=== PATIENT | male | born 1965 | race Caucasian/White ===

== ENCOUNTER 2018-10-15 13:18 | Inpatient (IN) ==
[2018-10-15] MEDS ORDERED: Sod Chloride 0.9% Inj 1,000 ML IV.SIG ONE (13:28)
[2018-10-15] MEDS ORDERED: Propofol 1000 mg/100 ml Inj 1,000 MG/100 ML BOTTLE ONE ×2 (13:29→17:16)
--- NOTE | 2018-10-15 13:35 | ED ---
HPI General Chief complaint: Altered Mental Status Stated complaint: Emergent Time Seen by Provider: 10/15/18 13:26 Source: EMS Mode of arrival: EMS Limitations: altered mental status History of Present Illness HPI narrative: Patient was transported from [facility], by ER mass who originally called it a trauma alert on the field. However upon further evaluation and history taking there was no evidence of any trauma, there was no accident motor vehicle motorcycle or otherwise. It was just that the patient was found down and so would not assumption of a fall was made. However the way that is been described it appears that something medical happened that caused the fall. There is also no outer evidence of trauma by EMS, GCS decreased from 10 to 92002 active EMS provided with etomidate and Versed however the patient was clenching his teeth and they were unable to intubate Related Data Home Medications Medication Instructions Recorded Confirmed amlodipine [Norvasc] 5 mg PO DAILY 10/15/18 10/15/18 tamsulosin [Flomax] 0.4 mg PO DAILY 10/15/18 10/15/18 Allergies Allergy/AdvReac Type Severity Reaction Status Date / Time lisinopril Allergy Intermediate hallucinati Verified 10/15/18 13:39 ons amlodipine Allergy Unknown headaches Verified 10/15/18 13:38 Review of Systems ROS: all other systems reviewed are negative [facility] Medical History Medical History Medical history unknown (Acute) Family History Family History Mother Gastric ulcer Social History Social History 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 HEAD: Atraumatic. Normocephalic. EYES: Pupils equal and round. No scleral icterus. No injection or drainage. rt infraorbital echymosis noted ENT: No nasal bleeding or discharge. Mucous membranes pink and moist. NECK: Trachea midline. No JVD. CARDIOVASCULAR: Regular rate and rhythm. no rubs or gallops RESPIRATORY: No accessory muscle use. Clear to auscultation. Breath sounds equal bilaterally. GASTROINTESTINAL: Abdomen soft, non-tender, nondistended. No rebound or guarding MUSCULOSKELETAL: Extremities without clubbing, cyanosis, or edema. No obvious deformities. neg pelvic rock NEUROLOGICAL: [id number] Procedures Intubation Time Out Performed: Yes Sedative: etomidate Mg Given: 20 Paralytic: succinylcholine Mg Given: 50 Laryngoscope: Joan Assist Device Used: Bougie ET Tube Size: 8 ET Tube Uncuffed: No Tube Secured Depth (cm): 22 Tube Secured Location: lips Tube Placement Confirmation: visualized tube passing through cords and confirmation by capnometry Patient Tolerated Procedure: well Intubation Complications: none Course Initial Documented Vital Signs Temperature 99.1 F 10/15/18 13:21 Pulse Rate 124 H 10/15/18 13:21 Respiratory Rate 18 10/15/18 13:21 Blood Pressure 142/64 H 10/15/18 13:21 Pulse Oximetry 100 10/15/18 13:21 Last Documented Vital Signs Temperature 100.0 F H 10/17/18 18:03 Pulse Rate 88 10/17/18 18:03 Respiratory Rate 16 10/17/18 18:03 Blood Pressure 133/75 10/17/18 18:03 Pulse Oximetry 100 10/17/18 18:03 Critical Care Time Critical Care Time: Yes Total Critical Care Time: 60 Attestation: Aggregate critical care time was 60 minutes. Time to perform other separately billable procedures was not included in the critical care time. My time did not include minutes spent treating any other patients simultaneously or on activities that did not directly contribute to the patient's treatment. The services I provided to this patient were to treat and/or prevent clinically significant deterioration I provided critical care services requiring my management, as noted below: Chart data review, documentation time, medication orders and management, vital sign assessments/reviewing monitor data, ordering and reviewing lab tests, ordering and interpreting/reviewing x-rays and diagnostic studies, care of the patient and discussion of the patient with the admitting physicians. Medical Decision Making MDM Narrative Medical decision making narrative: 20,000 leukocytosis reactive in nature without any left shift, anemia of 5.5/17, platelet count of 316 NG tube had coffee-ground emesis and return Coagulation profile is within normal limits Lactic acid elevated at 4.5 Mild hypo-Moreno C Radha of 8.3 Normal ammonia Normal electrolytes Normal kidney function Alcohol level negative Chest x-ray showed ETT in good position, NGT in the stomach, ill-defined parenchymal and pleural opacities in the left upper lobe to include the possibility of infection Head CT had multiple episode of subdural hemorrhages although not large these were noted and fully discussed with Dr. garcia patient was intubated for airway protection started on ppi drip protonix og/gardiner placed admitted to icu Medical Screen Exam Complete: Yes Emergency Medical Condition: Yes Lab Data Result diagrams: 10/17/18 05:00 10/16/18 01:53 Lab Results 10/15/18 10/15/18 10/15/18 Range/Units 13:30 13:30 13:30 WBC 20.6 H (4.0-11.0) th/mm3 RBC 1.69 L (4.50-5.90) mil/mm3 Hgb 5.5 L* (13.0-17.0) gm/dL Hct 17.1 L* (39.0-51.0) % MCV 101.4 H (80.0-100.0) fL MCH 32.5 (27.0-34.0) pg MCHC 32.0 (32.0-36.0) % RDW 16.4 (11.6-17.2) % Plt Count 316 (150-450) th/mm3 MPV 8.1 (7.0-11.0) fL Prelim Diff (Auto) Slide review pending Neut % (Auto) 66.3 (16.0-70.0) % Lymph % (Auto) 20.9 (9.0-44.0) % [place] % (Auto) 11.6 H (0.0-8.0) % Eos % (Auto) 0.2 (0.0-4.0) % Baso % (Auto) 1.0 (0.0-2.0) % Neut # (Auto) 13.6 H (1.8-7.7) th/mm3 Lymph # (Auto) 4.3 (1.0-4.8) th/mm3 [place] # (Auto) 2.4 H (0.0-0.9) th/mm3 Eos # (Auto) 0.0 (0.0-0.4) th/mm3 Baso # (Auto) 0.2 (0.0-0.2) th/mm3 WBC Differential Manual diff final Seg Neuts % (Manual) 73 H (16-70) % Band Neuts % (Manual) (0-6) % Lymphocytes % (Manual) 17 (9-44) % Monocytes % (Manual) 6 (0-8) % Eosinophils % (Manual) (0-4) % Basophils % (Manual) 2 (0-2) % Myelocytes % (Man) 1 H (0-0) % Promyelocytes % (Man) 1 H (0-0) % Abs Neuts (Manual) 15.5 H (1.8-7.7) th/mm3 Differential Comment . Platelet Estimate Normal (Normal) Platelet Morphology Clumped H (Normal) Ovalocytes (None) PT 11.0 (9.8-11.6) sec INR 1.1 Ratio APTT 22.4 L (23.4-31.7) sec Puncture Site Patient Temperature O2 Saturation (90-100) % ABG pH (7.380-7.420) ABG pCO2 (38-42) mmHg ABG pO2 (61-120) mmHg ABG HCO3 (22-26) mmol/L ABG O2 Content (12.0-20.0) Vol % ABG Base Excess (-2-2) mmol/L ABG Methemoglobin (0-2) % [place] Test Hemoglobin (12.0-16.0) G/DL Carboxyhemoglobin (0-4) % O2 Delivery Device Vent Setting Inspired O2 % Critical Value Sodium 140 (136-145) meq/L Potassium 3.9 (3.5-5.1) meq/L Chloride 107 (98-107) meq/L Carbon Dioxide 23.2 (21.0-32.0) meq/L Anion Gap 10 (5-15) meq/L BUN 27 H (7-18) mg/dL Creatinine 0.76 (0.60-1.30) mg/dL Estimated GFR Greater than 89 (>89) mL/min POC Glucose (68-110) mg/dl Random Glucose 175 H (74-106) mg/dL Lactic Acid (0.4-2.0) mmol/L Calcium 6.9 L* (8.5-10.1) mg/dL Calcium Adj for Albumin 8.3 L (8.5-10.1) mg/dL Total Bilirubin 0.2 (0.2-1.0) mg/dL AST 50 H (15-37) U/L ALT 18 (12-78) U/L Alkaline Phosphatase 74 (45-117) U/L Ammonia (11-32) mcmol/L Total Creatine Kinase (39-308) U/L Troponin I Less than 0.02 L (0.02-0.05) ng/mL Total Protein 6.5 (6.4-8.2) g/dL Albumin 2.2 L (3.4-5.0) g/dL TSH 0.555 (0.358-3.740) uIU/mL Urine Color (Yellw/Straw) Urine Clarity (Clear) Urine pH (5.0-8.5) Ur Specific [place] (1.002-1.035) Urine Protein (Neg-Trace) mg/dL Urine Glucose (UA) (Negative) mg/dL Urine Ketones (Negative) mg/dL Urine Occult Blood (Negative) Urine Nitrate (Negative) Urine Bilirubin (Negative) Urine Urobilinogen (Less than 2) mg/dL Ur Leukocyte Esterase (Negative) Urine RBC (0-3) /hpf Urine WBC (0-5) /hpf Ur Squamous Epith Cells (0-5) /hpf Urine Bacteria (None) /hpf Hyaline Casts (0-3) /lpf Urine Mucus (Occasional) /lpf Micro UA Comment Ur Microscopic Review Urine Culture Comments Nasal Screen MRSA (PCR) (Negative) Urine Opiates Screen (Neg) Ur Barbiturates Screen (Neg) Ur Amphetamines Screen (Neg) U Benzodiazepines Scrn (Neg) Urine Cocaine Screen (Neg) U Cannabinoids Screen (Neg) Serum Alcohol Less than 3 (0-5) mg/dL M.tuberculosis DNA (PCR) (Not Detect) Blood Type Antibody Screen MTS Gel Crossmatch 10/15/18 10/15/18 10/15/18 Range/Units 13:30 13:30 13:30 WBC (4.0-11.0) th/mm3 RBC (4.50-5.90) mil/mm3 Hgb (13.0-17.0) gm/dL Hct (39.0-51.0) % MCV (80.0-100.0) fL MCH (27.0-34.0) pg MCHC (32.0-36.0) % RDW (11.6-17.2) % Plt Count (150-450) th/mm3 MPV (7.0-11.0) fL Prelim Diff (Auto) Neut % (Auto) (16.0-70.0) % Lymph % (Auto) (9.0-44.0) % [place] % (Auto) (0.0-8.0) % Eos % (Auto) (0.0-4.0) % Baso % (Auto) (0.0-2.0) % Neut # (Auto) (1.8-7.7) th/mm3 Lymph # (Auto) (1.0-4.8) th/mm3 [place] # (Auto) (0.0-0.9) th/mm3 Eos # (Auto) (0.0-0.4) th/mm3 Baso # (Auto) (0.0-0.2) th/mm3 WBC Differential Seg Neuts % (Manual) (16-70) % Band Neuts % (Manual) (0-6) % Lymphocytes % (Manual) (9-44) % Monocytes % (Manual) (0-8) % Eosinophils % (Manual) (0-4) % Basophils % (Manual) (0-2) % Myelocytes % (Man) (0-0) % Promyelocytes % (Man) (0-0) % Abs Neuts (Manual) (1.8-7.7) th/mm3 Differential Comment Platelet Estimate (Normal) Platelet Morphology (Normal) Ovalocytes (None) PT (9.8-11.6) sec INR Ratio APTT (23.4-31.7) sec Puncture Site Patient Temperature O2 Saturation (90-100) % ABG pH (7.380-7.420) ABG pCO2 (38-42) mmHg ABG pO2 (61-120) mmHg ABG HCO3 (22-26) mmol/L ABG O2 Content (12.0-20.0) Vol % ABG Base Excess (-2-2) mmol/L ABG Methemoglobin (0-2) % [place] Test Hemoglobin (12.0-16.0) G/DL Carboxyhemoglobin (0-4) % O2 Delivery Device Vent Setting Inspired O2 % Critical Value Sodium (136-145) meq/L Potassium (3.5-5.1) meq/L Chloride (98-107) meq/L Carbon Dioxide (21.0-32.0) meq/L Anion Gap (5-15) meq/L BUN (7-18) mg/dL Creatinine (0.60-1.30) mg/dL Estimated GFR (>89) mL/min POC Glucose (68-110) mg/dl Random Glucose (74-106) mg/dL Lactic Acid 4.5 H* (0.4-2.0) mmol/L Calcium (8.5-10.1) mg/dL Calcium Adj for Albumin (8.5-10.1) mg/dL Total Bilirubin (0.2-1.0) mg/dL AST (15-37) U/L ALT (12-78) U/L Alkaline Phosphatase (45-117) U/L Ammonia 26 (11-32) mcmol/L Total Creatine Kinase (39-308) U/L Troponin I (0.02-0.05) ng/mL Total Protein (6.4-8.2) g/dL Albumin (3.4-5.0) g/dL TSH (0.358-3.740) uIU/mL Urine Color (Yellw/Straw) Urine Clarity (Clear) Urine pH (5.0-8.5) Ur Specific [place] (1.002-1.035) Urine Protein (Neg-Trace) mg/dL Urine Glucose (UA) (Negative) mg/dL Urine Ketones (Negative) mg/dL Urine Occult Blood (Negative) Urine Nitrate (Negative) Urine Bilirubin (Negative) Urine Urobilinogen (Less than 2) mg/dL Ur Leukocyte Esterase (Negative) Urine RBC (0-3) /hpf Urine WBC (0-5) /hpf Ur Squamous Epith Cells (0-5) /hpf Urine Bacteria (None) /hpf Hyaline Casts (0-3) /lpf Urine Mucus (Occasional) /lpf Micro UA Comment Ur Microscopic Review Urine Culture Comments Nasal Screen MRSA (PCR) (Negative) Urine Opiates Screen (Neg) Ur Barbiturates Screen (Neg) Ur Amphetamines Screen (Neg) U Benzodiazepines Scrn (Neg) Urine Cocaine Screen (Neg) U Cannabinoids Screen (Neg) Serum Alcohol (0-5) mg/dL M.tuberculosis DNA (PCR) (Not Detect) Blood Type A Positive Antibody Screen Negative MTS Gel Crossmatch 10/15/18 10/15/18 10/15/18 Range/Units 13:46 14:00 14:00 WBC (4.0-11.0) th/mm3 RBC (4.50-5.90) mil/mm3 Hgb (13.0-17.0) gm/dL Hct (39.0-51.0) % MCV (80.0-100.0) fL MCH (27.0-34.0) pg MCHC (32.0-36.0) % RDW (11.6-17.2) % Plt Count (150-450) th/mm3 MPV (7.0-11.0) fL Prelim Diff (Auto) Neut % (Auto) (16.0-70.0) % Lymph % (Auto) (9.0-44.0) % [place] % (Auto) (0.0-8.0) % Eos % (Auto) (0.0-4.0) % Baso % (Auto) (0.0-2.0) % Neut # (Auto) (1.8-7.7) th/mm3 Lymph # (Auto) (1.0-4.8) th/mm3 [place] # (Auto) (0.0-0.9) th/mm3 Eos # (Auto) (0.0-0.4) th/mm3 Baso # (Auto) (0.0-0.2) th/mm3 WBC Differential Seg Neuts % (Manual) (16-70) % Band Neuts % (Manual) (0-6) % Lymphocytes % (Manual) (9-44) % Monocytes % (Manual) (0-8) % Eosinophils % (Manual) (0-4) % Basophils % (Manual) (0-2) % Myelocytes % (Man) (0-0) % Promyelocytes % (Man) (0-0) % Abs Neuts (Manual) (1.8-7.7) th/mm3 Differential Comment Platelet Estimate (Normal) Platelet Morphology (Normal) Ovalocytes (None) PT (9.8-11.6) sec INR Ratio APTT (23.4-31.7) sec Puncture Site Patient Temperature O2 Saturation (90-100) % ABG pH (7.380-7.420) ABG pCO2 (38-42) mmHg ABG pO2 (61-120) mmHg ABG HCO3 (22-26) mmol/L ABG O2 Content (12.0-20.0) Vol % ABG Base Excess (-2-2) mmol/L ABG Methemoglobin (0-2) % [place] Test Hemoglobin (12.0-16.0) G/DL Carboxyhemoglobin (0-4) % O2 Delivery Device Vent Setting Inspired O2 % Critical Value Sodium (136-145) meq/L Potassium (3.5-5.1) meq/L Chloride (98-107) meq/L Carbon Dioxide (21.0-32.0) meq/L Anion Gap (5-15) meq/L BUN (7-18) mg/dL Creatinine (0.60-1.30) mg/dL Estimated GFR (>89) mL/min POC Glucose 204 H (68-110) mg/dl Random Glucose (74-106) mg/dL Lactic Acid (0.4-2.0) mmol/L Calcium (8.5-10.1) mg/dL Calcium Adj for Albumin (8.5-10.1) mg/dL Total Bilirubin (0.2-1.0) mg/dL AST (15-37) U/L ALT (12-78) U/L Alkaline Phosphatase (45-117) U/L Ammonia (11-32) mcmol/L Total Creatine Kinase (39-308) U/L Troponin I (0.02-0.05) ng/mL Total Protein (6.4-8.2) g/dL Albumin (3.4-5.0) g/dL TSH (0.358-3.740) uIU/mL Urine Color Yellow (Yellw/Straw) Urine Clarity Clear (Clear) Urine pH 5.0 (5.0-8.5) Ur Specific [place] 1.013 (1.002-1.035) Urine Protein 30 H (Neg-Trace) mg/dL Urine Glucose (UA) Negative (Negative) mg/dL Urine Ketones Negative (Negative) mg/dL Urine Occult Blood Small H (Negative) Urine Nitrate Negative (Negative) Urine Bilirubin Negative (Negative) Urine Urobilinogen Less than 2 (Less than 2) mg/dL Ur Leukocyte Esterase Moderate H (Negative) Urine RBC 7 H (0-3) /hpf Urine WBC 14 H (0-5) /hpf Ur Squamous Epith Cells <1 (0-5) /hpf Urine Bacteria Occasional H (None) /hpf Hyaline Casts 3 (0-3) /lpf Urine Mucus Few H (Occasional) /lpf Micro UA Comment Culture indicated Ur Microscopic Review Not Reportable Urine Culture Comments Culture indicated Nasal Screen MRSA (PCR) (Negative) Urine Opiates Screen Neg (Neg) Ur Barbiturates Screen Neg (Neg) Ur Amphetamines Screen Pos H (Neg) U Benzodiazepines Scrn Pos H (Neg) Urine Cocaine Screen Neg (Neg) U Cannabinoids Screen Pos H (Neg) Serum Alcohol (0-5) mg/dL M.tuberculosis DNA (PCR) (Not Detect) Blood Type Antibody Screen MTS Gel Crossmatch 10/15/18 10/15/18 10/15/18 Range/Units 14:36 16:55 17:44 WBC (4.0-11.0) th/mm3 RBC (4.50-5.90) mil/mm3 Hgb (13.0-17.0) gm/dL Hct (39.0-51.0) % MCV (80.0-100.0) fL MCH (27.0-34.0) pg MCHC (32.0-36.0) % RDW (11.6-17.2) % Plt Count (150-450) th/mm3 MPV (7.0-11.0) fL Prelim Diff (Auto) Neut % (Auto) (16.0-70.0) % Lymph % (Auto) (9.0-44.0) % [place] % (Auto) (0.0-8.0) % Eos % (Auto) (0.0-4.0) % Baso % (Auto) (0.0-2.0) % Neut # (Auto) (1.8-7.7) th/mm3 Lymph # (Auto) (1.0-4.8) th/mm3 [place] # (Auto) (0.0-0.9) th/mm3 Eos # (Auto) (0.0-0.4) th/mm3 Baso # (Auto) (0.0-0.2) th/mm3 WBC Differential Seg Neuts % (Manual) (16-70) % Band Neuts % (Manual) (0-6) % Lymphocytes % (Manual) (9-44) % Monocytes % (Manual) (0-8) % Eosinophils % (Manual) (0-4) % Basophils % (Manual) (0-2) % Myelocytes % (Man) (0-0) % Promyelocytes % (Man) (0-0) % Abs Neuts (Manual) (1.8-7.7) th/mm3 Differential Comment Platelet Estimate (Normal) Platelet Morphology (Normal) Ovalocytes (None) PT (9.8-11.6) sec INR Ratio APTT (23.4-31.7) sec Puncture Site Right radial Patient Temperature 98.6 O2 Saturation 98 (90-100) % ABG pH 7.50 H (7.380-7.420) ABG pCO2 32 L (38-42) mmHg ABG pO2 484 H (61-120) mmHg ABG HCO3 24 (22-26) mmol/L ABG O2 Content 10.3 L (12.0-20.0) Vol % ABG Base Excess 1.4 (-2-2) mmol/L ABG Methemoglobin 0.5 (0-2) % [place] Test Present Hemoglobin 6.5 L* (12.0-16.0) G/DL Carboxyhemoglobin 0.0 (0-4) % O2 Delivery Device Ventilator Vent Setting Prvc/ac Inspired O2 100 % Critical Value Yes Sodium (136-145) meq/L Potassium (3.5-5.1) meq/L Chloride (98-107) meq/L Carbon Dioxide (21.0-32.0) meq/L Anion Gap (5-15) meq/L BUN (7-18) mg/dL Creatinine (0.60-1.30) mg/dL Estimated GFR (>89) mL/min POC Glucose (68-110) mg/dl Random Glucose (74-106) mg/dL Lactic Acid (0.4-2.0) mmol/L Calcium (8.5-10.1) mg/dL Calcium Adj for Albumin (8.5-10.1) mg/dL Total Bilirubin (0.2-1.0) mg/dL AST (15-37) U/L ALT (12-78) U/L Alkaline Phosphatase (45-117) U/L Ammonia (11-32) mcmol/L Total Creatine Kinase (39-308) U/L Troponin I (0.02-0.05) ng/mL Total Protein (6.4-8.2) g/dL Albumin (3.4-5.0) g/dL TSH (0.358-3.740) uIU/mL Urine Color (Yellw/Straw) Urine Clarity (Clear) Urine pH (5.0-8.5) Ur Specific [place] (1.002-1.035) Urine Protein (Neg-Trace) mg/dL Urine Glucose (UA) (Negative) mg/dL Urine Ketones (Negative) mg/dL Urine Occult Blood (Negative) Urine Nitrate (Negative) Urine Bilirubin (Negative) Urine Urobilinogen (Less than 2) mg/dL Ur Leukocyte Esterase (Negative) Urine RBC (0-3) /hpf Urine WBC (0-5) /hpf Ur Squamous Epith Cells (0-5) /hpf Urine Bacteria (None) /hpf Hyaline Casts (0-3) /lpf Urine Mucus (Occasional) /lpf Micro UA Comment Ur Microscopic Review Urine Culture Comments Nasal Screen MRSA (PCR) (Negative) Urine Opiates Screen (Neg) Ur Barbiturates Screen (Neg) Ur Amphetamines Screen (Neg) U Benzodiazepines Scrn (Neg) Urine Cocaine Screen (Neg) U Cannabinoids Screen (Neg) Serum Alcohol (0-5) mg/dL M.tuberculosis DNA (PCR) Not detected (Not Detect) Blood Type Antibody Screen MTS Gel Crossmatch See Detail 10/15/18 10/15/18 10/15/18 Range/Units 18:47 18:59 21:39 WBC (4.0-11.0) th/mm3 RBC (4.50-5.90) mil/mm3 Hgb (13.0-17.0) gm/dL Hct (39.0-51.0) % MCV (80.0-100.0) fL MCH (27.0-34.0) pg MCHC (32.0-36.0) % RDW (11.6-17.2) % Plt Count (150-450) th/mm3 MPV (7.0-11.0) fL Prelim Diff (Auto) Neut % (Auto) (16.0-70.0) % Lymph % (Auto) (9.0-44.0) % [place] % (Auto) (0.0-8.0) % Eos % (Auto) (0.0-4.0) % Baso % (Auto) (0.0-2.0) % Neut # (Auto) (1.8-7.7) th/mm3 Lymph # (Auto) (1.0-4.8) th/mm3 [place] # (Auto) (0.0-0.9) th/mm3 Eos # (Auto) (0.0-0.4) th/mm3 Baso # (Auto) (0.0-0.2) th/mm3 WBC Differential Seg Neuts % (Manual) (16-70) % Band Neuts % (Manual) (0-6) % Lymphocytes % (Manual) (9-44) % Monocytes % (Manual) (0-8) % Eosinophils % (Manual) (0-4) % Basophils % (Manual) (0-2) % Myelocytes % (Man) (0-0) % Promyelocytes % (Man) (0-0) % Abs Neuts (Manual) (1.8-7.7) th/mm3 Differential Comment Platelet Estimate (Normal) Platelet Morphology (Normal) Ovalocytes (None) PT (9.8-11.6) sec INR Ratio APTT (23.4-31.7) sec Puncture Site Patient Temperature O2 Saturation (90-100) % ABG pH (7.380-7.420) ABG pCO2 (38-42) mmHg ABG pO2 (61-120) mmHg ABG HCO3 (22-26) mmol/L ABG O2 Content (12.0-20.0) Vol % ABG Base Excess (-2-2) mmol/L ABG Methemoglobin (0-2) % [place] Test Hemoglobin (12.0-16.0) G/DL Carboxyhemoglobin (0-4) % O2 Delivery Device Vent Setting Inspired O2 % Critical Value Sodium (136-145) meq/L Potassium (3.5-5.1) meq/L Chloride (98-107) meq/L Carbon Dioxide (21.0-32.0) meq/L Anion Gap (5-15) meq/L BUN (7-18) mg/dL Creatinine (0.60-1.30) mg/dL Estimated GFR (>89) mL/min POC Glucose 147 H (68-110) mg/dl Random Glucose (74-106) mg/dL Lactic Acid 2.6 H (0.4-2.0) mmol/L Calcium (8.5-10.1) mg/dL Calcium Adj for Albumin (8.5-10.1) mg/dL Total Bilirubin (0.2-1.0) mg/dL AST (15-37) U/L ALT (12-78) U/L Alkaline Phosphatase (45-117) U/L Ammonia (11-32) mcmol/L Total Creatine Kinase 140 (39-308) U/L Troponin I Less than 0.02 L (0.02-0.05) ng/mL Total Protein (6.4-8.2) g/dL Albumin (3.4-5.0) g/dL TSH (0.358-3.740) uIU/mL Urine Color (Yellw/Straw) Urine Clarity (Clear) Urine pH (5.0-8.5) Ur Specific [place] (1.002-1.035) Urine Protein (Neg-Trace) mg/dL Urine Glucose (UA) (Negative) mg/dL Urine Ketones (Negative) mg/dL Urine Occult Blood (Negative) Urine Nitrate (Negative) Urine Bilirubin (Negative) Urine Urobilinogen (Less than 2) mg/dL Ur Leukocyte Esterase (Negative) Urine RBC (0-3) /hpf Urine WBC (0-5) /hpf Ur Squamous Epith Cells (0-5) /hpf Urine Bacteria (None) /hpf Hyaline Casts (0-3) /lpf Urine Mucus (Occasional) /lpf Micro UA Comment Ur Microscopic Review Urine Culture Comments Nasal Screen MRSA (PCR) (Negative) Urine Opiates Screen (Neg) Ur Barbiturates Screen (Neg) Ur Amphetamines Screen (Neg) U Benzodiazepines Scrn (Neg) Urine Cocaine Screen (Neg) U Cannabinoids Screen (Neg) Serum Alcohol (0-5) mg/dL M.tuberculosis DNA (PCR) (Not Detect) Blood Type Antibody Screen MTS Gel Crossmatch 12/04/18 12/04/18 12/04/18 Range/Units 21:39 22:45 23:33 WBC (4.0-11.0) th/mm3 RBC (4.50-5.90) mil/mm3 Hgb 9.0 L D (13.0-17.0) gm/dL Hct 25.6 L (39.0-51.0) % MCV (80.0-100.0) fL MCH (27.0-34.0) pg MCHC (32.0-36.0) % RDW (11.6-17.2) % Plt Count (150-450) th/mm3 MPV (7.0-11.0) fL Prelim Diff (Auto) Neut % (Auto) (16.0-70.0) % Lymph % (Auto) (9.0-44.0) % [place] % (Auto) (0.0-8.0) % Eos % (Auto) (0.0-4.0) % Baso % (Auto) (0.0-2.0) % Neut # (Auto) (1.8-7.7) th/mm3 Lymph # (Auto) (1.0-4.8) th/mm3 [place] # (Auto) (0.0-0.9) th/mm3 Eos # (Auto) (0.0-0.4) th/mm3 Baso # (Auto) (0.0-0.2) th/mm3 WBC Differential Seg Neuts % (Manual) (16-70) % Band Neuts % (Manual) (0-6) % Lymphocytes % (Manual) (9-44) % Monocytes % (Manual) (0-8) % Eosinophils % (Manual) (0-4) % Basophils % (Manual) (0-2) % Myelocytes % (Man) (0-0) % Promyelocytes % (Man) (0-0) % Abs Neuts (Manual) (1.8-7.7) th/mm3 Differential Comment Platelet Estimate (Normal) Platelet Morphology (Normal) Ovalocytes (None) PT (9.8-11.6) sec INR Ratio APTT (23.4-31.7) sec Puncture Site Patient Temperature O2 Saturation (90-100) % ABG pH (7.380-7.420) ABG pCO2 (38-42) mmHg ABG pO2 (61-120) mmHg ABG HCO3 (22-26) mmol/L ABG O2 Content (12.0-20.0) Vol % ABG Base Excess (-2-2) mmol/L ABG Methemoglobin (0-2) % [place] Test Hemoglobin (12.0-16.0) G/DL Carboxyhemoglobin (0-4) % O2 Delivery Device Vent Setting Inspired O2 % Critical Value Sodium (136-145) meq/L Potassium (3.5-5.1) meq/L Chloride (98-107) meq/L Carbon Dioxide (21.0-32.0) meq/L Anion Gap (5-15) meq/L BUN (7-18) mg/dL Creatinine (0.60-1.30) mg/dL Estimated GFR (>89) mL/min POC Glucose 154 H (68-110) mg/dl Random Glucose (74-106) mg/dL Lactic Acid (0.4-2.0) mmol/L Calcium (8.5-10.1) mg/dL Calcium Adj for Albumin (8.5-10.1) mg/dL Total Bilirubin (0.2-1.0) mg/dL AST (15-37) U/L ALT (12-78) U/L Alkaline Phosphatase (45-117) U/L Ammonia (11-32) mcmol/L Total Creatine Kinase (39-308) U/L Troponin I (0.02-0.05) ng/mL Total Protein (6.4-8.2) g/dL Albumin (3.4-5.0) g/dL TSH (0.358-3.740) uIU/mL Urine Color (Yellw/Straw) Urine Clarity (Clear) Urine pH (5.0-8.5) Ur Specific [place] (1.002-1.035) Urine Protein (Neg-Trace) mg/dL Urine Glucose (UA) (Negative) mg/dL Urine Ketones (Negative) mg/dL Urine Occult Blood (Negative) Urine Nitrate (Negative) Urine Bilirubin (Negative) Urine Urobilinogen (Less than 2) mg/dL Ur Leukocyte Esterase (Negative) Urine RBC (0-3) /hpf Urine WBC (0-5) /hpf Ur Squamous Epith Cells (0-5) /hpf Urine Bacteria (None) /hpf Hyaline Casts (0-3) /lpf Urine Mucus (Occasional) /lpf Micro UA Comment Ur Microscopic Review Urine Culture Comments Nasal Screen MRSA (PCR) Not detected (Negative) Urine Opiates Screen (Neg) Ur Barbiturates Screen (Neg) Ur Amphetamines Screen (Neg) U Benzodiazepines Scrn (Neg) Urine Cocaine Screen (Neg) U Cannabinoids Screen (Neg) Serum Alcohol (0-5) mg/dL M.tuberculosis DNA (PCR) (Not Detect) Blood Type Antibody Screen MTS Gel Crossmatch 10/16/18 10/16/18 10/16/18 Range/Units 01:53 01:53 01:53 WBC 20.3 H (4.0-11.0) th/mm3 RBC 2.89 L (4.50-5.90) mil/mm3 Hgb 9.2 L 9.3 L (13.0-17.0) gm/dL Hct 26.3 L 26.7 L (39.0-51.0) % MCV 92.2 D (80.0-100.0) fL MCH 32.0 (27.0-34.0) pg MCHC 34.7 (32.0-36.0) % RDW 16.8 (11.6-17.2) % Plt Count 266 (150-450) th/mm3 MPV 8.4 (7.0-11.0) fL Prelim Diff (Auto) Slide review pending Neut % (Auto) 73.3 H (16.0-70.0) % Lymph % (Auto) 9.6 (9.0-44.0) % [place] % (Auto) 15.8 H (0.0-8.0) % Eos % (Auto) 0.9 (0.0-4.0) % Baso % (Auto) 0.4 (0.0-2.0) % Neut # (Auto) 14.9 H (1.8-7.7) th/mm3 Lymph # (Auto) 1.9 (1.0-4.8) th/mm3 [place] # (Auto) 3.2 H (0.0-0.9) th/mm3 Eos # (Auto) 0.2 (0.0-0.4) th/mm3 Baso # (Auto) 0.1 (0.0-0.2) th/mm3 WBC Differential Manual diff final Seg Neuts % (Manual) 71 H (16-70) % Band Neuts % (Manual) 11 H (0-6) % Lymphocytes % (Manual) 9 (9-44) % Monocytes % (Manual) 8 (0-8) % Eosinophils % (Manual) 1 (0-4) % Basophils % (Manual) (0-2) % Myelocytes % (Man) (0-0) % Promyelocytes % (Man) (0-0) % Abs Neuts (Manual) 16.6 H (1.8-7.7) th/mm3 Differential Comment . Platelet Estimate Normal (Normal) Platelet Morphology Normal (Normal) Ovalocytes 1+ H (None) PT (9.8-11.6) sec INR Ratio APTT (23.4-31.7) sec Puncture Site Patient Temperature O2 Saturation (90-100) % ABG pH (7.380-7.420) ABG pCO2 (38-42) mmHg ABG pO2 (61-120) mmHg ABG HCO3 (22-26) mmol/L ABG O2 Content (12.0-20.0) Vol % ABG Base Excess (-2-2) mmol/L ABG Methemoglobin (0-2) % [place] Test Hemoglobin (12.0-16.0) G/DL Carboxyhemoglobin (0-4) % O2 Delivery Device Vent Setting Inspired O2 % Critical Value Sodium 142 (136-145) meq/L Potassium 3.1 L D (3.5-5.1) meq/L Chloride 110 H (98-107) meq/L Carbon Dioxide 22.8 (21.0-32.0) meq/L Anion Gap 9 (5-15) meq/L BUN 21 H (7-18) mg/dL Creatinine 0.63 (0.60-1.30) mg/dL Estimated GFR Greater than 89 (>89) mL/min POC Glucose (68-110) mg/dl Random Glucose 146 H (74-106) mg/dL Lactic Acid (0.4-2.0) mmol/L Calcium 7.0 L* (8.5-10.1) mg/dL Calcium Adj for Albumin 8.6 (8.5-10.1) mg/dL Total Bilirubin 0.5 (0.2-1.0) mg/dL AST 32 (15-37) U/L ALT 15 (12-78) U/L Alkaline Phosphatase 66 (45-117) U/L Ammonia (11-32) mcmol/L Total Creatine Kinase 79 (39-308) U/L Troponin I Less than 0.02 L (0.02-0.05) ng/mL Total Protein 5.9 L D (6.4-8.2) g/dL Albumin 2.0 L (3.4-5.0) g/dL TSH (0.358-3.740) uIU/mL Urine Color (Yellw/Straw) Urine Clarity (Clear) Urine pH (5.0-8.5) Ur Specific [place] (1.002-1.035) Urine Protein (Neg-Trace) mg/dL Urine Glucose (UA) (Negative) mg/dL Urine Ketones (Negative) mg/dL Urine Occult Blood (Negative) Urine Nitrate (Negative) Urine Bilirubin (Negative) Urine Urobilinogen (Less than 2) mg/dL Ur Leukocyte Esterase (Negative) Urine RBC (0-3) /hpf Urine WBC (0-5) /hpf Ur Squamous Epith Cells (0-5) /hpf Urine Bacteria (None) /hpf Hyaline Casts (0-3) /lpf Urine Mucus (Occasional) /lpf Micro UA Comment Ur Microscopic Review Urine Culture Comments Nasal Screen MRSA (PCR) (Negative) Urine Opiates Screen (Neg) Ur Barbiturates Screen (Neg) Ur Amphetamines Screen (Neg) U Benzodiazepines Scrn (Neg) Urine Cocaine Screen (Neg) U Cannabinoids Screen (Neg) Serum Alcohol (0-5) mg/dL M.tuberculosis DNA (PCR) (Not Detect) Blood Type Antibody Screen MTS Gel Crossmatch 10/16/18 10/16/18 10/16/18 Range/Units 05:18 08:10 16:06 WBC (4.0-11.0) th/mm3 RBC (4.50-5.90) mil/mm3 Hgb 8.1 L 8.0 L (13.0-17.0) gm/dL Hct 21.5 L 23.7 L (39.0-51.0) % MCV (80.0-100.0) fL MCH (27.0-34.0) pg MCHC (32.0-36.0) % RDW (11.6-17.2) % Plt Count (150-450) th/mm3 MPV (7.0-11.0) fL Prelim Diff (Auto) Neut % (Auto) (16.0-70.0) % Lymph % (Auto) (9.0-44.0) % [place] % (Auto) (0.0-8.0) % Eos % (Auto) (0.0-4.0) % Baso % (Auto) (0.0-2.0) % Neut # (Auto) (1.8-7.7) th/mm3 Lymph # (Auto) (1.0-4.8) th/mm3 [place] # (Auto) (0.0-0.9) th/mm3 Eos # (Auto) (0.0-0.4) th/mm3 Baso # (Auto) (0.0-0.2) th/mm3 WBC Differential Seg Neuts % (Manual) (16-70) % Band Neuts % (Manual) (0-6) % Lymphocytes % (Manual) (9-44) % Monocytes % (Manual) (0-8) % Eosinophils % (Manual) (0-4) % Basophils % (Manual) (0-2) % Myelocytes % (Man) (0-0) % Promyelocytes % (Man) (0-0) % Abs Neuts (Manual) (1.8-7.7) th/mm3 Differential Comment Platelet Estimate (Normal) Platelet Morphology (Normal) Ovalocytes (None) PT (9.8-11.6) sec INR Ratio APTT (23.4-31.7) sec Puncture Site Right radial Patient Temperature 98.6 O2 Saturation 97 (90-100) % ABG pH 7.47 H (7.380-7.420) ABG pCO2 34 L (38-42) mmHg ABG pO2 185 H (61-120) mmHg ABG HCO3 24 (22-26) mmol/L ABG O2 Content 11.6 L (12.0-20.0) Vol % ABG Base Excess 0.7 (-2-2) mmol/L ABG Methemoglobin 1.7 (0-2) % [place] Test Present Hemoglobin 8.3 L (12.0-16.0) G/DL Carboxyhemoglobin 1.2 (0-4) % O2 Delivery Device Ventilator Vent Setting Prvc/ac Inspired O2 40 % Critical Value No Sodium (136-145) meq/L Potassium (3.5-5.1) meq/L Chloride (98-107) meq/L Carbon Dioxide (21.0-32.0) meq/L Anion Gap (5-15) meq/L BUN (7-18) mg/dL Creatinine (0.60-1.30) mg/dL Estimated GFR (>89) mL/min POC Glucose (68-110) mg/dl Random Glucose (74-106) mg/dL Lactic Acid (0.4-2.0) mmol/L Calcium (8.5-10.1) mg/dL Calcium Adj for Albumin (8.5-10.1) mg/dL Total Bilirubin (0.2-1.0) mg/dL AST (15-37) U/L ALT (12-78) U/L Alkaline Phosphatase (45-117) U/L Ammonia (11-32) mcmol/L Total Creatine Kinase (39-308) U/L Troponin I (0.02-0.05) ng/mL Total Protein (6.4-8.2) g/dL Albumin (3.4-5.0) g/dL TSH (0.358-3.740) uIU/mL Urine Color (Yellw/Straw) Urine Clarity (Clear) Urine pH (5.0-8.5) Ur Specific [place] (1.002-1.035) Urine Protein (Neg-Trace) mg/dL Urine Glucose (UA) (Negative) mg/dL Urine Ketones (Negative) mg/dL Urine Occult Blood (Negative) Urine Nitrate (Negative) Urine Bilirubin (Negative) Urine Urobilinogen (Less than 2) mg/dL Ur Leukocyte Esterase (Negative) Urine RBC (0-3) /hpf Urine WBC (0-5) /hpf Ur Squamous Epith Cells (0-5) /hpf Urine Bacteria (None) /hpf Hyaline Casts (0-3) /lpf Urine Mucus (Occasional) /lpf Micro UA Comment Ur Microscopic Review Urine Culture Comments Nasal Screen MRSA (PCR) (Negative) Urine Opiates Screen (Neg) Ur Barbiturates Screen (Neg) Ur Amphetamines Screen (Neg) U Benzodiazepines Scrn (Neg) Urine Cocaine Screen (Neg) U Cannabinoids Screen (Neg) Serum Alcohol (0-5) mg/dL M.tuberculosis DNA (PCR) (Not Detect) Blood Type Antibody Screen MTS Gel Crossmatch 10/16/18 10/16/18 10/17/18 Range/Units 23:30 23:30 05:00 WBC 17.0 H (4.0-11.0) th/mm3 RBC 2.46 L (4.50-5.90) mil/mm3 Hgb 7.5 L 7.8 L (13.0-17.0) gm/dL Hct 22.2 L 22.4 L (39.0-51.0) % MCV 90.8 (80.0-100.0) fL MCH 31.8 (27.0-34.0) pg MCHC 35.0 (32.0-36.0) % RDW 16.9 (11.6-17.2) % Plt Count 287 (150-450) th/mm3 MPV 8.0 (7.0-11.0) fL Prelim Diff (Auto) Neut % (Auto) 74.8 H (16.0-70.0) % Lymph % (Auto) 10.9 (9.0-44.0) % [place] % (Auto) 12.6 H (0.0-8.0) % Eos % (Auto) 1.2 (0.0-4.0) % Baso % (Auto) 0.5 (0.0-2.0) % Neut # (Auto) 12.7 H (1.8-7.7) th/mm3 Lymph # (Auto) 1.9 (1.0-4.8) th/mm3 [place] # (Auto) 2.1 H (0.0-0.9) th/mm3 Eos # (Auto) 0.2 (0.0-0.4) th/mm3 Baso # (Auto) 0.1 (0.0-0.2) th/mm3 WBC Differential . Seg Neuts % (Manual) (16-70) % Band Neuts % (Manual) (0-6) % Lymphocytes % (Manual) (9-44) % Monocytes % (Manual) (0-8) % Eosinophils % (Manual) (0-4) % Basophils % (Manual) (0-2) % Myelocytes % (Man) (0-0) % Promyelocytes % (Man) (0-0) % Abs Neuts (Manual) (1.8-7.7) th/mm3 Differential Comment Auto diff final Platelet Estimate (Normal) Platelet Morphology (Normal) Ovalocytes (None) PT 11.2 (9.8-11.6) sec INR 1.1 Ratio APTT 25.7 (23.4-31.7) sec Puncture Site Patient Temperature O2 Saturation (90-100) % ABG pH (7.380-7.420) ABG pCO2 (38-42) mmHg ABG pO2 (61-120) mmHg ABG HCO3 (22-26) mmol/L ABG O2 Content (12.0-20.0) Vol % ABG Base Excess (-2-2) mmol/L ABG Methemoglobin (0-2) % [place] Test Hemoglobin (12.0-16.0) G/DL Carboxyhemoglobin (0-4) % O2 Delivery Device Vent Setting Inspired O2 % Critical Value Sodium (136-145) meq/L Potassium (3.5-5.1) meq/L Chloride (98-107) meq/L Carbon Dioxide (21.0-32.0) meq/L Anion Gap (5-15) meq/L BUN (7-18) mg/dL Creatinine (0.60-1.30) mg/dL Estimated GFR (>89) mL/min POC Glucose (68-110) mg/dl Random Glucose (74-106) mg/dL Lactic Acid (0.4-2.0) mmol/L Calcium (8.5-10.1) mg/dL Calcium Adj for Albumin (8.5-10.1) mg/dL Total Bilirubin (0.2-1.0) mg/dL AST (15-37) U/L ALT (12-78) U/L Alkaline Phosphatase (45-117) U/L Ammonia (11-32) mcmol/L Total Creatine Kinase (39-308) U/L Troponin I (0.02-0.05) ng/mL Total Protein (6.4-8.2) g/dL Albumin (3.4-5.0) g/dL TSH (0.358-3.740) uIU/mL Urine Color (Yellw/Straw) Urine Clarity (Clear) Urine pH (5.0-8.5) Ur Specific [place] (1.002-1.035) Urine Protein (Neg-Trace) mg/dL Urine Glucose (UA) (Negative) mg/dL Urine Ketones (Negative) mg/dL Urine Occult Blood (Negative) Urine Nitrate (Negative) Urine Bilirubin (Negative) Urine Urobilinogen (Less than 2) mg/dL Ur Leukocyte Esterase (Negative) Urine RBC (0-3) /hpf Urine WBC (0-5) /hpf Ur Squamous Epith Cells (0-5) /hpf Urine Bacteria (None) /hpf Hyaline Casts (0-3) /lpf Urine Mucus (Occasional) /lpf Micro UA Comment Ur Microscopic Review Urine Culture Comments Nasal Screen MRSA (PCR) (Negative) Urine Opiates Screen (Neg) Ur Barbiturates Screen (Neg) Ur Amphetamines Screen (Neg) U Benzodiazepines Scrn (Neg) Urine Cocaine Screen (Neg) U Cannabinoids Screen (Neg) Serum Alcohol (0-5) mg/dL M.tuberculosis DNA (PCR) (Not Detect) Blood Type Antibody Screen MTS Gel Crossmatch 10/17/18 Range/Units 05:14 WBC (4.0-11.0) th/mm3 RBC (4.50-5.90) mil/mm3 Hgb (13.0-17.0) gm/dL Hct (39.0-51.0) % MCV (80.0-100.0) fL MCH (27.0-34.0) pg MCHC (32.0-36.0) % RDW (11.6-17.2) % Plt Count (150-450) th/mm3 MPV (7.0-11.0) fL Prelim Diff (Auto) Neut % (Auto) (16.0-70.0) % Lymph % (Auto) (9.0-44.0) % [place] % (Auto) (0.0-8.0) % Eos % (Auto) (0.0-4.0) % Baso % (Auto) (0.0-2.0) % Neut # (Auto) (1.8-7.7) th/mm3 Lymph # (Auto) (1.0-4.8) th/mm3 [place] # (Auto) (0.0-0.9) th/mm3 Eos # (Auto) (0.0-0.4) th/mm3 Baso # (Auto) (0.0-0.2) th/mm3 WBC Differential Seg Neuts % (Manual) (16-70) % Band Neuts % (Manual) (0-6) % Lymphocytes % (Manual) (9-44) % Monocytes % (Manual) (0-8) % Eosinophils % (Manual) (0-4) % Basophils % (Manual) (0-2) % Myelocytes % (Man) (0-0) % Promyelocytes % (Man) (0-0) % Abs Neuts (Manual) (1.8-7.7) th/mm3 Differential Comment Platelet Estimate (Normal) Platelet Morphology (Normal) Ovalocytes (None) PT (9.8-11.6) sec INR Ratio APTT (23.4-31.7) sec Puncture Site Right radial Patient Temperature 98.6 O2 Saturation 96 (90-100) % ABG pH 7.50 H (7.380-7.420) ABG pCO2 34 L (38-42) mmHg ABG pO2 118 (61-120) mmHg ABG HCO3 26 (22-26) mmol/L ABG O2 Content 10.7 L (12.0-20.0) Vol % ABG Base Excess 2.5 H (-2-2) mmol/L ABG Methemoglobin 1.0 (0-2) % [place] Test Present Hemoglobin 7.8 L* (12.0-16.0) G/DL Carboxyhemoglobin 0.3 (0-4) % O2 Delivery Device Ventilator Vent Setting Prvc/ac Inspired O2 30 % Critical Value Yes Sodium (136-145) meq/L Potassium (3.5-5.1) meq/L Chloride (98-107) meq/L Carbon Dioxide (21.0-32.0) meq/L Anion Gap (5-15) meq/L BUN (7-18) mg/dL Creatinine (0.60-1.30) mg/dL Estimated GFR (>89) mL/min POC Glucose (68-110) mg/dl Random Glucose (74-106) mg/dL Lactic Acid (0.4-2.0) mmol/L Calcium (8.5-10.1) mg/dL Calcium Adj for Albumin (8.5-10.1) mg/dL Total Bilirubin (0.2-1.0) mg/dL AST (15-37) U/L ALT (12-78) U/L Alkaline Phosphatase (45-117) U/L Ammonia (11-32) mcmol/L Total Creatine Kinase (39-308) U/L Troponin I (0.02-0.05) ng/mL Total Protein (6.4-8.2) g/dL Albumin (3.4-5.0) g/dL TSH (0.358-3.740) uIU/mL Urine Color (Yellw/Straw) Urine Clarity (Clear) Urine pH (5.0-8.5) Ur Specific [place] (1.002-1.035) Urine Protein (Neg-Trace) mg/dL Urine Glucose (UA) (Negative) mg/dL Urine Ketones (Negative) mg/dL Urine Occult Blood (Negative) Urine Nitrate (Negative) Urine Bilirubin (Negative) Urine Urobilinogen (Less than 2) mg/dL Ur Leukocyte Esterase (Negative) Urine RBC (0-3) /hpf Urine WBC (0-5) /hpf Ur Squamous Epith Cells (0-5) /hpf Urine Bacteria (None) /hpf Hyaline Casts (0-3) /lpf Urine Mucus (Occasional) /lpf Micro UA Comment Ur Microscopic Review Urine Culture Comments Nasal Screen MRSA (PCR) (Negative) Urine Opiates Screen (Neg) Ur Barbiturates Screen (Neg) Ur Amphetamines Screen (Neg) U Benzodiazepines Scrn (Neg) Urine Cocaine Screen (Neg) U Cannabinoids Screen (Neg) Serum Alcohol (0-5) mg/dL M.tuberculosis DNA (PCR) (Not Detect) Blood Type Antibody Screen MTS Gel Crossmatch Imaging Data Radiologist's impression: Chest X-Ray 10/15/18 13:23 CONCLUSION: 1. ETT in good position. NGT in the stomach. 2. Ill-defined parenchymal and pleural opacities in the left upper lobe. Differential considerations include infection, including atypical infection, in the appropriate clinical setting. Cervical Spine CT 10/15/18 13:26 CONCLUSION: 1. No acute fracture or subluxation. 2. Partially imaged large cavitary lesion in the left lung apex. Chest CT to follow. 3. Multilevel degenerative spondylosis of the cervical spine. Head CT 10/15/18 13:26 CONCLUSION: 1. Mild subdural hemorrhage seen at the right frontal region, left tentorium, left anterior falx, and left temporal region. The left temporal region hemorrhage could also be subarachnoid hemorrhage. 2. Suspected skull base fracture around the sphenoid sinus and at the anterior inferior aspect of the right middle cranial fossa. There appears to be air within the suprasellar cistern region. . Abdomen/Pelvis CT 10/15/18 15:27 CONCLUSION: 1. Extensive wall thickening urinary bladder, neoplastic process should be excluded. 2. Diverticulosis without diverticulitis. 3. Bilateral nonobstructing renal calculi. 4. Left basilar infiltrate. Chest CT 10/15/18 15:27 CONCLUSION: 1. Prominent cavitary mass along the anterior lateral left upper lung. This could be inflammatory/infectious versus neoplastic. It is nonspecific. 2. Patchy areas of consolidation seen at the posterior left lower lung with some lesser degree of cavitary change. This most closely resembles postinflammatory change although is nonspecific. 3. Small nodules measuring less than 5 mm at the anterior left lower lung and at the right middle lobe. These are nonspecific. They can be followed. 4. Significant adenopathy is not seen. Carotid Doppler Study 10/16/18 10:06 CONCLUSION: Negative examination for a hemodynamically significant carotid stenosis. Gianni Raymundo MD FACR Head CT 10/17/18 00:00 CONCLUSION: 1. Stable exam as detailed above. . Chest X-Ray 10/17/18 06:00 CONCLUSION: Unchanged area of consolidation within the left upper lobe. ECG Data EKG Prior to Arrival: No Attestation: I personally reviewed and interpreted this ECG as follows: Prior ECG tracings: not available for review Interpretation: Sinus tachycardia 128 bpm, appears to have a short VA interval, prolonged QRS of 125, right bundle branch block pattern noted, no evidence of any acute ST elevation PR pattern Discharge Plan Discharge Disposition Patient Disposition: ED Admit(ED Internal Use Only) Discharge Condition Condition: Fair Discharge Order Discharge Orders: ED Use Only Admit Order (Routine); Ordered 10/15/18 Ordered By: Sukhdeep Campuzano Discharge Details Diagnosis: GI bleed, Subdural hematoma, post-traumatic Physicians Team ED Provider: Sukhdeep Campuzano Primary Care Provider: UNKNOWN, Attending Provider: Rod Fuller Other Providers: Dixon Garcia ; Keaton Pretty V ; Vazquez Wing ; Hal Humphries V ; Flip Shook ; Shabbir Colvin ; [employer] ; Matt Fung ; Trinh Simon ; Paco Bergman ; Yari Gonzalez ; David Vázquez ; Ahmet Cunningham ; Luiz Tovar ; Clark Bates Discharge Interventions Interventions: ED Discharge Assessment Last Done: 10/15/18 17:48 Vital Signs Last Done: 10/15/18 16:07 Status ED Status: Left Department Discharge Information Discharge Date/Time: 10/15/18 18:21
[2018-10-15] MEDS: Propofol 1000 mg/100 ml Inj 1,000 MG/100 ML BOTTLE IV.CONT PRN ×3 (13:47→23:10)
[2018-10-15 14:01] LABS: Baso # (Auto) 0.2 th/mm3 (0.0-0.2); Eos % (Auto) 0.2 % (0.0-4.0); Lymph # (Auto) 4.3 th/mm3 (1.0-4.8); Lymph % (Auto) 20.9 % (9.0-44.0); Mean Corpuscular Hemoglobin 32.5 pg (27.0-34.0); Mean Corpuscular Volume 101.4 fL (80.0-100.0); Mean Platelet Volume 8.1 fL (7.0-11.0); Mono # (Auto) 2.4 th/mm3 (0.0-0.9); Mono % (Auto) 11.6 % (0.0-8.0); Neut # (Auto) 13.6 th/mm3 (1.8-7.7); Neut % (Auto) 66.3 % (16.0-70.0); Platelet Count 316 th/mm3 (150-450); Red Blood Count 1.69 mil/mm3 (4.50-5.90); Red Cell Distribution Width 16.4 % (11.6-17.2); White Blood Count 20.6 th/mm3 (4.0-11.0)
[2018-10-15 14:04] LABS: Hematocrit 17.1 % (39.0-51.0); Hemoglobin 5.5 gm/dL (13.0-17.0)
[2018-10-15 14:11] LABS: Activated Partial Thrombo Time 22.4 sec (23.4-31.7); INR 1.1 Ratio
[2018-10-15 14:21] LABS: Alanine Aminotransferase 18 U/L (12-78); Albumin 2.2 g/dL (3.4-5.0); Anion Gap 10 meq/L (5-15); Aspartate Aminotransferase 50 U/L (15-37); Blood Urea Nitrogen 27 mg/dL (7-18); Calcium 6.9 mg/dL (8.5-10.1); Carbon Dioxide 23.2 meq/L (21.0-32.0); Chloride 107 meq/L (98-107); Glomerular Filtration Rate Greater Than 89 mL/min (>89); Glucose,Random 175 mg/dL (74-106); Potassium 3.9 meq/L (3.5-5.1); Sodium 140 meq/L (136-145)
--- NOTE | 2018-10-15 14:23 | XR ---
EXAM DATE: 10/15/2018 1:47 PM EST AGE/SEX: 53 years / Male INDICATIONS: Evaluate ET tube placement. CLINICAL DATA: This is the patient's initial encounter. Patient reports that signs and symptoms have been present for 1 day and indicates a pain score of 0/10. MEDICAL/SURGICAL HISTORY: Non-responsive. Non-responsive. COMPARISON: [facility] default, CHEST SINGLE AP, 12/22/2015. . FINDINGS: ETT at the level the clavicles. NGT coiled in the stomach. Ill-defined parenchymal and pleural opacit ies in the left upper lung zone. This was not present on more remote prior exam. Cardiomegaly mediast inal contours are within normal limits. Healed right-sided rib fractures. Osseous structures are othe rwise grossly intact. CONCLUSION: 1. ETT in good position. NGT in the stomach. 2. Ill-defined parenchymal and pleural opacities in the left upper lobe. Differential consideration s include infection, including atypical infection, in the appropriate clinical setting. Electronically signed by: Roger Foss MD 10/15/2018 2:22 PM EST
[2018-10-15 14:36] LABS: Alkaline Phosphatase 74 U/L (45-117); Thyroid Stimulating Hormone 0.555 uIU/mL (0.358-3.740); Total Protein 6.5 g/dL (6.4-8.2)
[2018-10-15] MEDS ORDERED: Pantoprazole Inj 80 MG in Sodium Chlor 0.9% Inj 50 ML IV.SIG ONE (14:37)
[2018-10-15] MEDS ORDERED: Midazolam 100 MG/100 ML Inj 100 MG/100 ML BAG IV.CONT PRN (14:39)
--- NOTE | 2018-10-15 14:43 | CT ---
EXAM DATE: 10/15/2018 2:31 PM EST AGE/SEX: 53 years / Male INDICATIONS: Found unresponsive. Right eye swelling. CLINICAL DATA: This is the patient's initial encounter. Patient reports that signs and symptoms have been present for 1 day and indicates a pain score of Nonresponsive. MEDICAL/SURGICAL HISTORY: Non-responsive. Non-responsive. RADIATION DOSE: 46.02 CTDI (mGy) COMPARISON: No prior exams available for comparison. TECHNIQUE: CT of the head without contrast. Using automated exposure control and adjustment of the mA and/or kV according to patient size, radiation dose was kept as low as reasonably achievable to ob tain optimal diagnostic quality images. DICOM format image data is available electronically for revi ew and comparison. FINDINGS: Cerebrum: There is hemorrhage seen along the lateral aspect of the left temporal lobe likely related to subarachnoid hemorrhage versus mild subdural hemorrhage. There is also increased density/hemorrha ge at the left tentorium consistent with a mild subdural hemorrhage in this region. There is a small subdural hemorrhage seen over the right frontal lobe measuring 3 mm in thickness. There is an interhe mispheric anterior falx subdural hematoma seen on the left measuring 3 mm. The ventricles are normal for age. No evidence of midline shift, mass lesion, hemorrhage or acute infarction. No extraaxial f luid collections are seen. Posterior Fossa: The cerebellum and brainstem are intact. The 4th ventricle is midline. The cerebe llopontine angle is unremarkable. Extracranial: There is increased density seen in the right maxillary sinus. It is possible fracture at the right maxillary sinus. The patient could have CT of the facial bones Skull: There appears to be fracturing at the anterior inferior aspect of the right middle cranial fo ssa. There is also likely fracturing at the skull base and sphenoid sinus. The does. Some air seen ar ound the suprasellar cistern region. CONCLUSION: 1. Mild subdural hemorrhage seen at the right frontal region, left tentorium, left anterior falx, an d left temporal region. The left temporal region hemorrhage could also be subarachnoid hemorrhage. 2. Suspected skull base fracture around the sphenoid sinus and at the anterior inferior aspect of th e right middle cranial fossa. There appears to be air within the suprasellar cistern region. . Electronically signed by: Hal Geiger MD 10/15/2018 2:42 PM EST
[2018-10-15 14:53] LABS: Lymphocytes 17 % (9-44); Monocytes 6 % (0-8); Myelocytes 1 % (0-0); Platelet Estimate Normal (Normal); Platelet Morphology Clumped (Normal); Promyelocyte 1 % (0-0)
[2018-10-15] MEDS ORDERED: Sodium Chlor 0.9% Inj 250 ML IV.SIG SCH (15:00)
[2018-10-15 15:20] LABS: Bacteria,Urine Occasional /hpf; Bilirubin,Urine Negative (Negative); Clarity,Urine Clear (Clear); Color,Urine Yellow (Yellw/Straw); Glucose,Urine (UA) Negative (Negative); Hyaline Casts,Urine 3 /lpf (0-3); Leukocyte Esterase,Urine Moderate (Negative); Mucus,Urine Few /lpf (Occasional); Nitrite,Urine Negative (Negative); Specific Gravity,Urine 1.013 (1.002-1.035); Squamous Epithelial Cell,Urine <1 /hpf (0-5)
[2018-10-15 15:27] LABS: Amphetamine Screen,Urine Pos (Neg); Barbiturate Screen,Urine Neg (Neg); Cannabinoid Screen,Urine Pos (Neg); Cocaine Screen,Urine Neg (Neg)
[2018-10-15 15:32] LABS: Opiate Screen,Urine Neg (Neg)
--- NOTE | 2018-10-15 15:36 | CT ---
EXAM DATE: 10/15/2018 2:47 PM EST AGE/SEX: 53 years / Male INDICATIONS: Found unresponsive. Right eye swelling. CLINICAL DATA: This is the patient's initial encounter. Patient reports that signs and symptoms have been present for 1 day and indicates a pain score of Nonresponsive. MEDICAL/SURGICAL HISTORY: Non-responsive. Non-responsive. RADIATION DOSE: 26.02 CTDI (mGy) COMPARISON: [facility], CHEST 1V SINGLE AP, 10/15/2018. . TECHNIQUE: Contiguous axial images were obtained using helical multirow detector technique. The vol umetric data was post-processed with multiplanar reconstruction in oblique axial, sagittal, and coron al planes. Using automated exposure control and adjustment of the mA and/or kV according to patient s ize, radiation dose was kept as low as reasonably achievable to obtain optimal diagnostic quality le ges. DICOM format image data is available electronically for review and comparison. FINDINGS: OSSEOUS STRUCTURES: Vertebral body heights are maintained. Osseous structures are intact without evid ence for acute bony fracture. Dens is intact. ALIGNMENT: Sagittal alignment is maintained. There is a normal C1-2 relationship. Facets are normal ly aligned. SOFT TISSUES: There is no significant prevertebral soft tissue hematoma. No significant cervical bisi nopathy or gross mass. The thyroid appears unremarkable. Partially imaged large cavitary lesion in t he left lung apex measuring larger than 3.3 x 4.8 cm. ADDITIONAL FINDINGS: Multilevel degenerative spondylosis of the cervical spine most prominently at C5 -6 and C6-7 with disc space narrowing and posterior disc osteophytes. Bony central canal is patent. Moderate left-sided bony neural foraminal narrowing at C5-6 and C6-7. CONCLUSION: 1. No acute fracture or subluxation. 2. Partially imaged large cavitary lesion in the left lung apex. Chest CT to follow. 3. Multilevel degenerative spondylosis of the cervical spine. Electronically signed by: Roger Foss MD 10/15/2018 3:35 PM EST
[2018-10-15] MEDS: Pantoprazole Inj 80 MG in Sodium Chlor 0.9% Inj 100 ML IV.CONT SCH (15:37)
[2018-10-15] MEDS ORDERED: Succinylcholine Inj 200 MG/10 ML Vial ONE (16:00)
[2018-10-15] MEDS ORDERED: Vancomycin Consult Pharmacy OTHER PRN (16:02)
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
[2018-10-15 17:36] LABS: ABG Base Excess 1.4 mmol/L (-2-2); ABG PCO2 32 mmHg (38-42); ABG PO2 484 mmHg (61-120)
--- NOTE | 2018-10-15 17:38 | CT ---
EXAM DATE: 10/15/2018 5:30 PM EST AGE/SEX: 53 years / Male INDICATIONS: Shortness of breath, patient found unresponsive. CLINICAL DATA: This is the patient's initial encounter. Patient reports that signs and symptoms have been present for 1 day and indicates a pain score of Nonresponsive. MEDICAL/SURGICAL HISTORY: Non-responsive. Non-responsive. RADIATION DOSE: 12.06 CTDI (mGy) ; Combined studies COMPARISON: No prior exams available for comparison. TECHNIQUE: Multiple contiguous axial images were obtained through the chest during bolus infusion of 95 ml Omnipaque 350 (iohexol) nonionic water-soluble contrast as a cumulative dose for multiple exa ms. Images were obtained in suspended respiration using multiple row detector helical technique. U sing automated exposure control and adjustment of the mA and/or kV according to patient size, radiati on dose was kept as low as reasonably achievable to obtain optimal diagnostic quality images. DICOM format image data is available electronically for review and comparison. FINDINGS: Lungs: There is a large cavitary mass seen in the anterior lateral left upper lung. This extends dex ng the undersurface of the costal margin at the anterior lateral left upper lung extending over an ap proximately 11 cm in length, 4 cm in AP dimension and 2.5 cm in transverse dimension. There is irregu lar consolidation seen at the posterior aspect of the superior segment of the left lower lobe. This c ontinues into the posterior aspect of the left lower lobe with some cavitary change. There is also so me nodularity seen in the posterior medial left lower lobe. There some minimal nodularity seen at the anterior inferior aspect of the left lower lobe. There is a focal area of nodularity measuring 4 mm in the right middle lobe region. There is emphysematous change. Mediastinum: There is good visualiza tion of the great vessels of the middle mediastinum. No evidence of mediastinal or hilar adenopathy/ mass. Pleurae: No evidence of focal thickening or pleural effusion. Axillae: Unremarkable. Bony Structures: Unremarkable. Miscellaneous: The patient is to have a CT of the abdomen and pelvis to follow. CONCLUSION: 1. Prominent cavitary mass along the anterior lateral left upper lung. This could be inflammatory/in fectious versus neoplastic. It is nonspecific. 2. Patchy areas of consolidation seen at the posterior left lower lung with some lesser degree of ca vitary change. This most closely resembles postinflammatory change although is nonspecific. 3. Small nodules measuring less than 5 mm at the anterior left lower lung and at the right middle lo be. These are nonspecific. They can be followed. 4. Significant adenopathy is not seen. Electronically signed by: Hal Geiger MD 10/15/2018 5:37 PM EST
--- NOTE | 2018-10-15 17:41 | CT ---
EXAM DATE: 10/15/2018 5:28 PM EST AGE/SEX: 53 years / Male INDICATIONS: Diffuse abdomen pain, patient found unrepsonsive. CLINICAL DATA: This is the patient's initial encounter. Patient reports that signs and symptoms have been present for 1 day and indicates a pain score of Nonresponsive. MEDICAL/SURGICAL HISTORY: Non-responsive. Non-responsive. ORAL CONTRAST: No oral contrast ingested. RADIATION DOSE: 12.06 CTDI (mGy) ; Combined studies COMPARISON: No prior exams available for comparison. TECHNIQUE: Multiple contiguous axial images were obtained through the abdomen and pelvis following b olus infusion of 95 ml Omnipaque 350 (iohexol) nonionic water-soluble contrast as a cumulative dose for multiple exams. No oral contrast ingested. Using automated exposure control and adjustment of t he mA and/or kV according to patient size, radiation dose was kept as low as reasonably achievable to obtain optimal diagnostic quality images. DICOM format image data is available electronically for r eview and comparison. FINDINGS: Lower Lungs: Patchy infiltrates left lower lobe. Liver: The liver has a homogeneous density without space-occupying lesion. There is no dilation of th e biliary tree. Subcentimeter hepatic low-density towards the dome. Spleen: Homogeneous density without enlargement. Pancreas: Unremarkable without mass or calcification. Kidneys: Normal in size and shape. No evidence of mass or hydronephrosis. Bilateral renal calculi me asures 8 to 9 mm Adrenal Glands: Unremarkable. Aorta: The aorta and proximal iliac vessels are grossly unremarkable without aneurysmal dilation. Bowel/Mesentery: Scattered diverticulosis without diverticulitis. Abdominal Wall: Intact. Retroperitoneum: No evidence of adenopathy in the retrocrural, para-aortic, or deep pelvic regions. Bladder: Extensive wall thickening of the urinary bladder decompressed by Lowe catheter Reproductive Organs: No abnormal masses or calcifications seen. Inguinal: The inguinal region is unremarkable without evidence of adenopathy. Bony Structures: Scoliosis and degenerative changes. Nasogastric tube tip in stomach CONCLUSION: 1. Extensive wall thickening urinary bladder, neoplastic process should be excluded. 2. Diverticulosis without diverticulitis. 3. Bilateral nonobstructing renal calculi. 4. Left basilar infiltrate. Electronically signed by: Heriberto Wright MD 10/15/2018 5:40 PM EST
[2018-10-15] MEDS ORDERED: Morphine Inj 4 MG/ML Vial ONE (17:45)
--- NOTE | 2018-10-15 17:56 | P.OP ---
Preoperative Diagnosis: Traumatic subdural and subarachnoid hemorrhage Postoperative Diagnosis: Traumatic subdural and subarachnoid hemorrhage Date of procedure: 10/15/18 Procedure: Right frontal bur hole with placement of an intracranial pressure monitor. Anesthesia: JOYA Surgeon: Dixon Garcia MD Electric Knife Operator: IAN Pathology: none sent Operation and Findings: INTRAOPERATIVE FINDINGS Intracranial pressures of 5 mmHg. INDICATIONS FOR THE PROCEDURE The patient is a 53 year old male who was brought to [facility] as a trauma alert with GCS of 8. Ct showed traumatic SAH and a subdural hematoma Placement of ICP monitor was indicated as recommended by the [employer] [place] [employer] DETAILS OF THE SURGICAL PROCEDURE The right frontal area was shaved, prepped and draped in the usual sterile fashion. An entry point was selected behind the hairline, approximately 30 mm lateral to the midline. The incision was infiltrated with 1% lidocaine with epinephrine 1:100,000 dilution. A small incision was made with a 15 blade down to the level of the periosteum. Using a twist drill a melisa hole was made. The dura was opened with a blunt stylet, and a Josefina bolt was secured to the bone. A fiberoptic transducer was calibrated according to the civil transportation engineer's instructions, and advanced into the parenchyma of the frontal lobe through the bolt. An intracranial pressure of 5 mmHg was achieved with a good waveform. A Betadine sterile dressing was applied. The patient tolerated the procedure well. There were no intraoperative complications. Blood loss was minimal.
[2018-10-15] MEDS: Sod Chloride 0.9% Inj 1,000 ML IV.CONT SCH (18:05)
--- NOTE | 2018-10-15 18:14 | P.CON ---
History of Present Illness Primary Care Provider: UNKNOWN Chief Complaint: Altered mental status History of Present Illness: 53 y.o male found down and then transferred to [place].Here patient's GCS noted to be 8 so that he was intubated by the ER physician.Further work up revealed hgb 5.5 large amount of coffee ground blood form NGT.CT head shows SDH/SAH ,no other traumatic injuries. Review of Systems unobtainable due to endotracheal tube, unobtainable due to mental status PMFSH - History History Provided By: Surgical Technician / EMT - Medical History Medical History: Medical History (Last Updated 10/15/18 @ 16:16 by Rod Fuller MD) Medical history unknown - Tobacco History Smoking Status: Unknown if ever smoked - Alcohol History How Often Do You Have a Drink Containing Alcohol: Unable to Obtain - Substance Use History Substance History: No History of Abuse - Immunization History Tetanus Immunization: Unsure Medications and Allergies Active Medications: Active Medications Chlorhexidine Gluconate (Chlorhexidine 2% Cloth) 3 pack TOPICAL DAILY@0400 TOAN Stop: 10/21/18 03:59 Chlorhexidine Gluconate (Chlorhexidine 2% Cloth) 3 pack TOPICAL DAILY@0400 PRN PRN Reason: Extra cloth needed Stop: 10/21/18 03:59 Propofol (Diprivan 1000 Mg/100 Ml Inj) 1,000 mg in 100 mls @ 2.4 mls/hr IV.CONT TITRATE PRN; Protocol PRN Reason: Per Protocol Last Admin: 10/15/18 18:03 Dose: 50 mcg/kg/min, 24 mls/hr Sodium Chloride (Ns Inj) 250 mls @ 15 mls/hr IV.SIG ONCE OTAN Stop: 10/16/18 07:39 Last Admin: 10/15/18 15:47 Dose: 15 mls/hr Pantoprazole Sodium 80 mg/ (Sodium Chloride) 100 mls @ 10 mls/hr IV.CONT CONT TOAN Last Admin: 10/15/18 15:37 Dose: 10 mls/hr Midazolam HCl (Versed Inj) 100 mg in 100 mls @ 2 mls/hr IV.CONT TITRATE PRN; Protocol PRN Reason: See protocol Ceftazidime 1,000 mg/ Sodium (Chloride) 100 mls @ 200 mls/hr IV.SIG Q8H TOAN Metronidazole/Sodium Chloride (Flagyl 500 Mg Inj) 100 mls @ 100 mls/hr IV.SIG Q8H TOAN Last Infusion: 10/15/18 18:01 Dose: Infused Vancomycin HCl 1,250 mg/ (Sodium Chloride) 262.5 mls @ 250 mls/hr IV.SIG Q12H TOAN Sodium Chloride (Ns Inj) 1,000 mls @ 75 mls/hr IV.CONT .[id number] TOAN Pharmacy Profile Note (Vancomycin Consult Pharmacy) 1 each OTHER UNSCH PRN PRN Reason: Pharmacy to dose Sodium Chloride (Ns Flush) 2 ml IV.FLUSH PRN PRN PRN Reason: FLUSH AFTER USING IV ACCESS Allergies Allergy/AdvReac Type Severity Reaction Status Date / Time lisinopril Allergy Intermediate hallucinati Verified 10/15/18 13:39 ons amlodipine Allergy Unknown headaches Verified 10/15/18 13:38 Home Medications Medication Instructions Recorded Confirmed Type Unable to Obtain Home Meds 10/15/18 10/15/18 History Physical Exam Vital signs: Vital Signs 10/15/18 13:21 10/15/18 13:25 10/15/18 13:26 Temperature 99.1 F 99.1 F Pulse Rate 124 H 117 H Respiratory Rate 18 18 Blood Pressure 142/64 H 153/86 H Pulse Oximetry 100 100 100 10/15/18 13:35 10/15/18 14:10 10/15/18 14:39 Temperature Pulse Rate 122 H Respiratory Rate 25 H 16 Blood Pressure 139/75 Pulse Oximetry 97 100 100 10/15/18 14:41 10/15/18 15:12 10/15/18 15:51 Temperature 101.8 F H Pulse Rate 132 H 144 H 134 H Respiratory Rate 16 16 16 Blood Pressure 157/81 H 160/83 H 160/83 H Pulse Oximetry 100 100 100 10/15/18 16:05 10/15/18 16:07 10/15/18 17:46 Temperature 101.0 F H 101.0 F H Pulse Rate 121 H 119 H 121 H Respiratory Rate 16 16 18 Blood Pressure 142/68 H 142/68 H 150/84 H Pulse Oximetry 100 100 10/15/18 17:47 Temperature Pulse Rate Respiratory Rate Blood Pressure Pulse Oximetry 100 Intake & Output 10/14/18 10/15/18 10/15/18 18:59 06:59 18:59 Intake Total 250 / 250 Balance 250 / 250 Weight 80 kg Intake: IV 250 / 250 Diprivan 1000 mg/100 ml Inj 1, 100 / 100 000 mg In 100 ml @ 5 MCG/KG/MIN 2.4 mls/hr IV.CONT TITRATE PRN Rx#:[id number] Protonix Inj 80 MG In NS Inj 50 50 / 50 ML @ 600 mls/hr IV.SIG BOLUS ONE Rx#:[id number] Flagyl 500 MG Inj 100 ML @ 100 100 / 100 mls/hr IV.SIG Q8H TOAN Rx#: [id number] Intake (Blood Product) Amt 0 / 0 Rbc As-3 Leukoreduced Unit 0 / 0 [id number] Rbc As-3 Leukoreduced Unit 0 / 0 [id number] - Constitutional thin, cachectic, chronically ill appearing - Routine HEENT Exam Head: Present: normocephalic, atraumatic Eye: Present: EOMI ENT: Present: mucous membranes dry - Routine Neck Exam Present: supple, trachea midline - Routine Respiratory Exam Present: CTA bilaterally - Routine Cardiovascular Exam Present: RRR - Routine Abdominal Exam Present: soft - Routine Extremities Exam Present: pulses intact, normal capillary refill - Routine Neurological Exam Present: altered mental status - Detailed Neurological Exam: Coma Scale Eye Opening: None Verbal Response: None Motor Response: Localizing Adiel Coma Scale Total: 7 - Urinary Catheter Management Indwelling Urethral Catheter Cath placed during this visit: yes Reason for continuing: Terminally ill/Comfort care Insertion date: 10/15/18 Insertion time: 13:30 Results - Labs CBC & Chem 7: 10/15/18 13:30 10/15/18 13:30 Labs: Laboratory Results - last 24 hr 10/15/18 10/15/18 10/15/18 13:30 13:30 13:30 WBC 20.6 H RBC 1.69 L Hgb 5.5 L* Hct 17.1 L* MCV 101.4 H MCH 32.5 MCHC 32.0 RDW 16.4 Plt Count 316 MPV 8.1 Prelim Diff (Auto) Slide review pending Neut % (Auto) 66.3 Lymph % (Auto) 20.9 [place] % (Auto) 11.6 H Eos % (Auto) 0.2 Baso % (Auto) 1.0 Neut # (Auto) 13.6 H Lymph # (Auto) 4.3 [place] # (Auto) 2.4 H Eos # (Auto) 0.0 Baso # (Auto) 0.2 WBC Differential Manual diff final Seg Neuts % (Manual) 73 H Lymphocytes % (Manual) 17 Monocytes % (Manual) 6 Basophils % (Manual) 2 Myelocytes % (Man) 1 H Promyelocytes % (Man) 1 H Abs Neuts (Manual) 15.5 H Differential Comment . Platelet Estimate Normal Platelet Morphology Clumped H PT 11.0 INR 1.1 APTT 22.4 L Puncture Site Patient Temperature O2 Saturation ABG pH ABG pCO2 ABG pO2 ABG HCO3 ABG O2 Content ABG Base Excess ABG Methemoglobin [place] Test Hemoglobin Carboxyhemoglobin O2 Delivery Device Vent Setting Inspired O2 Critical Value Sodium 140 Potassium 3.9 Chloride 107 Carbon Dioxide 23.2 Anion Gap 10 BUN 27 H Creatinine 0.76 Estimated GFR Greater than 89 POC Glucose Random Glucose 175 H Lactic Acid Calcium 6.9 L* Calcium Adj for Albumin 8.3 L Total Bilirubin 0.2 AST 50 H ALT 18 Alkaline Phosphatase 74 Ammonia Troponin I Less than 0.02 L Total Protein 6.5 Albumin 2.2 L TSH 0.555 Urine Color Urine Clarity Urine pH Ur Specific [place] Urine Protein Urine Glucose (UA) Urine Ketones Urine Occult Blood Urine Nitrate Urine Bilirubin Urine Urobilinogen Ur Leukocyte Esterase Urine RBC Urine WBC Ur Squamous Epith Cells Urine Bacteria Hyaline Casts Urine Mucus Micro UA Comment Ur Microscopic Review Urine Culture Comments Urine Opiates Screen Ur Barbiturates Screen Ur Amphetamines Screen U Benzodiazepines Scrn Urine Cocaine Screen U Cannabinoids Screen Serum Alcohol Less than 3 Blood Type Antibody Screen MTS Gel Crossmatch 10/15/18 10/15/18 10/15/18 13:30 13:30 13:30 WBC RBC Hgb Hct MCV MCH MCHC RDW Plt Count MPV Prelim Diff (Auto) Neut % (Auto) Lymph % (Auto) [place] % (Auto) Eos % (Auto) Baso % (Auto) Neut # (Auto) Lymph # (Auto) [place] # (Auto) Eos # (Auto) Baso # (Auto) WBC Differential Seg Neuts % (Manual) Lymphocytes % (Manual) Monocytes % (Manual) Basophils % (Manual) Myelocytes % (Man) Promyelocytes % (Man) Abs Neuts (Manual) Differential Comment Platelet Estimate Platelet Morphology PT INR APTT Puncture Site Patient Temperature O2 Saturation ABG pH ABG pCO2 ABG pO2 ABG HCO3 ABG O2 Content ABG Base Excess ABG Methemoglobin [place] Test Hemoglobin Carboxyhemoglobin O2 Delivery Device Vent Setting Inspired O2 Critical Value Sodium Potassium Chloride Carbon Dioxide Anion Gap BUN Creatinine Estimated GFR POC Glucose Random Glucose Lactic Acid 4.5 H* Calcium Calcium Adj for Albumin Total Bilirubin AST ALT Alkaline Phosphatase Ammonia 26 Troponin I Total Protein Albumin TSH Urine Color Urine Clarity Urine pH Ur Specific [place] Urine Protein Urine Glucose (UA) Urine Ketones Urine Occult Blood Urine Nitrate Urine Bilirubin Urine Urobilinogen Ur Leukocyte Esterase Urine RBC Urine WBC Ur Squamous Epith Cells Urine Bacteria Hyaline Casts Urine Mucus Micro UA Comment Ur Microscopic Review Urine Culture Comments Urine Opiates Screen Ur Barbiturates Screen Ur Amphetamines Screen U Benzodiazepines Scrn Urine Cocaine Screen U Cannabinoids Screen Serum Alcohol Blood Type A Positive Antibody Screen Negative MTS Gel Crossmatch 10/15/18 10/15/18 10/15/18 13:46 14:00 14:00 WBC RBC Hgb Hct MCV MCH MCHC RDW Plt Count MPV Prelim Diff (Auto) Neut % (Auto) Lymph % (Auto) [place] % (Auto) Eos % (Auto) Baso % (Auto) Neut # (Auto) Lymph # (Auto) [place] # (Auto) Eos # (Auto) Baso # (Auto) WBC Differential Seg Neuts % (Manual) Lymphocytes % (Manual) Monocytes % (Manual) Basophils % (Manual) Myelocytes % (Man) Promyelocytes % (Man) Abs Neuts (Manual) Differential Comment Platelet Estimate Platelet Morphology PT INR APTT Puncture Site Patient Temperature O2 Saturation ABG pH ABG pCO2 ABG pO2 ABG HCO3 ABG O2 Content ABG Base Excess ABG Methemoglobin [place] Test Hemoglobin Carboxyhemoglobin O2 Delivery Device Vent Setting Inspired O2 Critical Value Sodium Potassium Chloride Carbon Dioxide Anion Gap BUN Creatinine Estimated GFR POC Glucose 204 H Random Glucose Lactic Acid Calcium Calcium Adj for Albumin Total Bilirubin AST ALT Alkaline Phosphatase Ammonia Troponin I Total Protein Albumin TSH Urine Color Yellow Urine Clarity Clear Urine pH 5.0 Ur Specific [place] 1.013 Urine Protein 30 H Urine Glucose (UA) Negative Urine Ketones Negative Urine Occult Blood Small H Urine Nitrate Negative Urine Bilirubin Negative Urine Urobilinogen Less than 2 Ur Leukocyte Esterase Moderate H Urine RBC 7 H Urine WBC 14 H Ur Squamous Epith Cells <1 Urine Bacteria Occasional H Hyaline Casts 3 Urine Mucus Few H Micro UA Comment Culture indicated Ur Microscopic Review Not Reportable Urine Culture Comments Culture indicated Urine Opiates Screen Neg Ur Barbiturates Screen Neg Ur Amphetamines Screen Pos H U Benzodiazepines Scrn Pos H Urine Cocaine Screen Neg U Cannabinoids Screen Pos H Serum Alcohol Blood Type Antibody Screen MTS Gel Crossmatch 10/15/18 10/15/18 14:36 16:55 WBC RBC Hgb Hct MCV MCH MCHC RDW Plt Count MPV Prelim Diff (Auto) Neut % (Auto) Lymph % (Auto) [place] % (Auto) Eos % (Auto) Baso % (Auto) Neut # (Auto) Lymph # (Auto) [place] # (Auto) Eos # (Auto) Baso # (Auto) WBC Differential Seg Neuts % (Manual) Lymphocytes % (Manual) Monocytes % (Manual) Basophils % (Manual) Myelocytes % (Man) Promyelocytes % (Man) Abs Neuts (Manual) Differential Comment Platelet Estimate Platelet Morphology PT INR APTT Puncture Site Right radial Patient Temperature 98.6 O2 Saturation 98 ABG pH 7.50 H ABG pCO2 32 L ABG pO2 484 H ABG HCO3 24 ABG O2 Content 10.3 L ABG Base Excess 1.4 ABG Methemoglobin 0.5 [place] Test Present Hemoglobin 6.5 L* Carboxyhemoglobin 0.0 O2 Delivery Device Ventilator Vent Setting Prvc/ac Inspired O2 100 Critical Value Yes Sodium Potassium Chloride Carbon Dioxide Anion Gap BUN Creatinine Estimated GFR POC Glucose Random Glucose Lactic Acid Calcium Calcium Adj for Albumin Total Bilirubin AST ALT Alkaline Phosphatase Ammonia Troponin I Total Protein Albumin TSH Urine Color Urine Clarity Urine pH Ur Specific [place] Urine Protein Urine Glucose (UA) Urine Ketones Urine Occult Blood Urine Nitrate Urine Bilirubin Urine Urobilinogen Ur Leukocyte Esterase Urine RBC Urine WBC Ur Squamous Epith Cells Urine Bacteria Hyaline Casts Urine Mucus Micro UA Comment Ur Microscopic Review Urine Culture Comments Urine Opiates Screen Ur Barbiturates Screen Ur Amphetamines Screen U Benzodiazepines Scrn Urine Cocaine Screen U Cannabinoids Screen Serum Alcohol Blood Type Antibody Screen MTS Gel Crossmatch See Detail - Imaging Impressions Chest X-Ray 10/15/18 13:23 CONCLUSION: 1. ETT in good position. NGT in the stomach. 2. Ill-defined parenchymal and pleural opacities in the left upper lobe. Differential considerations include infection, including atypical infection, in the appropriate clinical setting. Cervical Spine CT 10/15/18 13:26 CONCLUSION: 1. No acute fracture or subluxation. 2. Partially imaged large cavitary lesion in the left lung apex. Chest CT to follow. 3. Multilevel degenerative spondylosis of the cervical spine. Head CT 10/15/18 13:26 CONCLUSION: 1. Mild subdural hemorrhage seen at the right frontal region, left tentorium, left anterior falx, and left temporal region. The left temporal region hemorrhage could also be subarachnoid hemorrhage. 2. Suspected skull base fracture around the sphenoid sinus and at the anterior inferior aspect of the right middle cranial fossa. There appears to be air within the suprasellar cistern region. . Abdomen/Pelvis CT 10/15/18 15:27 CONCLUSION: 1. Extensive wall thickening urinary bladder, neoplastic process should be excluded. 2. Diverticulosis without diverticulitis. 3. Bilateral nonobstructing renal calculi. 4. Left basilar infiltrate. Chest CT 10/15/18 15:27 CONCLUSION: 1. Prominent cavitary mass along the anterior lateral left upper lung. This could be inflammatory/infectious versus neoplastic. It is nonspecific. 2. Patchy areas of consolidation seen at the posterior left lower lung with some lesser degree of cavitary change. This most closely resembles postinflammatory change although is nonspecific. 3. Small nodules measuring less than 5 mm at the anterior left lower lung and at the right middle lobe. These are nonspecific. They can be followed. 4. Significant adenopathy is not seen. Assessment and Plan - Plan UGI to hgb 5.5 which likely caused hypotension and the patient to fall SDH Patient will be admitted to the maint mechanic service Suggest protonix drip GI consult PRBC transfusion NS consult
--- NOTE | 2018-10-15 18:36 | P.HPCC ---
History of Present Illness Service: critical care medicine Primary Care Physician: UNKNOWN Chief Complaint: Altered mental status History of Present Illness: 53-year-old male with a medical history significant for hypertension, COPD who was found down at home, EMS was called and attempted intubation in the field for altered mental status after giving Versed and etomidate however patient had his teeth clenched and they could not intubated hence patient was bagged and brought to the ER. He was intubated in the ER and placed on mechanical ventilation. Head CT revealed left-sided small subdural hemorrhage and subarachnoid hemorrhage with skull base fracture with air around the sella. His hemoglobin came back 5.5. He was also noted to have coffee-ground material suctioned out of his NG tube. No melena or rectal bleeding noted. He was never hypotensive with systolic blood pressure in the 150s though he was tachycardic on arrival. He did spike a temperature in the ER of 101. Chest x- ray showed possible cavitary lesion in the left apex. Patient was accepted for admission by critical care medicine service after ER physician as discussed with trauma surgeon as well as Dr. Garcia from neurosurgery. When I evaluated the patient in the ER he was sedated with propofol, orally intubated on mechanical ventilation. History was obtained by reviewing records and discussion with ER physician. Inpatient Certification: I certify that the inpatient services were ordered in accordance with Medicare regulations governing the order. This includes certification that hospital inpatient services are reasonable and necessary and in the case of services not specified as inpatient-only under 42 CFR 419.22(n), that they are appropriately provided as inpatient services in accordance to with the 2-midnight benchmark under 43 CFR 412.3(e) Estimated Total Length of Stay (Days): 7 Plans for Post Hospital Care: Not yet determined Review of Systems unobtainable due to endotracheal tube PMFSH - History History Provided By: Dietitian Consultant / EMT - Medical History Medical History: Medical History (Last Updated 10/15/18 @ 16:16 by Rod Fuller MD) Medical history unknown - Tobacco History Smoking Status: Unknown if ever smoked - Alcohol History How Often Do You Have a Drink Containing Alcohol: Unable to Obtain - Substance Use History Substance History: No History of Abuse - Immunization History Tetanus Immunization: Unsure Medications and Allergies Active Medications: Active Medications Chlorhexidine Gluconate (Chlorhexidine 2% Cloth) 3 pack TOPICAL DAILY@0400 [facility] Stop: 10/21/18 03:59 Chlorhexidine Gluconate (Chlorhexidine 2% Cloth) 3 pack TOPICAL DAILY@0400 PRN PRN Reason: Extra cloth needed Stop: 10/21/18 03:59 Propofol (Diprivan 1000 Mg/100 Ml Inj) 1,000 mg in 100 mls @ 2.4 mls/hr IV.CONT TITRATE PRN; Protocol PRN Reason: Per Protocol Last Admin: 10/15/18 18:03 Dose: 50 mcg/kg/min, 24 mls/hr Sodium Chloride (Ns Inj) 250 mls @ 15 mls/hr IV.SIG ONCE TOAN Stop: 10/16/18 07:39 Last Admin: 10/15/18 15:47 Dose: 15 mls/hr Pantoprazole Sodium 80 mg/ (Sodium Chloride) 100 mls @ 10 mls/hr IV.CONT CONT TOAN Last Admin: 10/15/18 15:37 Dose: 10 mls/hr Midazolam HCl (Versed Inj) 100 mg in 100 mls @ 2 mls/hr IV.CONT TITRATE PRN; Protocol PRN Reason: See protocol Ceftazidime 1,000 mg/ Sodium (Chloride) 100 mls @ 200 mls/hr IV.SIG Q8H TOAN Metronidazole/Sodium Chloride (Flagyl 500 Mg Inj) 100 mls @ 100 mls/hr IV.SIG Q8H TOAN Last Infusion: 10/15/18 18:01 Dose: Infused Vancomycin HCl 1,250 mg/ (Sodium Chloride) 262.5 mls @ 250 mls/hr IV.SIG Q12H TOAN Sodium Chloride (Ns Inj) 1,000 mls @ 75 mls/hr IV.CONT .[id number] TOAN Last Admin: 10/15/18 18:05 Dose: 75 mls/hr Pharmacy Profile Note (Vancomycin Consult Pharmacy) 1 each OTHER UNSCH PRN PRN Reason: Pharmacy to dose Sodium Chloride (Ns Flush) 2 ml IV.FLUSH PRN PRN PRN Reason: FLUSH AFTER USING IV ACCESS Allergies Allergy/AdvReac Type Severity Reaction Status Date / Time lisinopril Allergy Intermediate hallucinati Verified 10/15/18 13:39 ons amlodipine Allergy Unknown headaches Verified 10/15/18 13:38 Home Medications Medication Instructions Recorded Confirmed Type Unable to Obtain Home Meds 10/15/18 10/15/18 History Results - Labs CBC & Chem 7: 10/15/18 13:30 10/15/18 13:30 Labs: Short CBC 10/15/18 Range/Units 13:30 WBC 20.6 H (4.0-11.0) th/mm3 Hgb 5.5 L* (13.0-17.0) gm/dL Hct 17.1 L* (39.0-51.0) % Plt Count 316 (150-450) th/mm3 BMP 10/15/18 13:30 Sodium 140 Potassium 3.9 Chloride 107 Carbon Dioxide 23.2 BUN 27 H Creatinine 0.76 Calcium 6.9 L* Cardiac Enzymes 10/15/18 Range/Units 13:30 Troponin I Less than 0.02 L (0.02-0.05) ng/mL Liver Function 10/15/18 Range/Units 13:30 Total Bilirubin 0.2 (0.2-1.0) mg/dL AST 50 H (15-37) U/L ALT 18 (12-78) U/L Alkaline Phosphatase 74 (45-117) U/L Albumin 2.2 L (3.4-5.0) g/dL Urine 10/15/18 Range/Units 14:00 Urine Color Yellow (Yellw/Straw) Urine Clarity Clear (Clear) Urine pH 5.0 (5.0-8.5) Ur Specific Quinlan 1.013 (1.002-1.035) Urine Protein 30 H (Neg-Trace) mg/dL Urine Glucose (UA) Negative (Negative) mg/dL - Imaging Impressions Chest X-Ray 10/15/18 13:23 CONCLUSION: 1. ETT in good position. NGT in the stomach. 2. Ill-defined parenchymal and pleural opacities in the left upper lobe. Differential considerations include infection, including atypical infection, in the appropriate clinical setting. Cervical Spine CT 10/15/18 13:26 CONCLUSION: 1. No acute fracture or subluxation. 2. Partially imaged large cavitary lesion in the left lung apex. Chest CT to follow. 3. Multilevel degenerative spondylosis of the cervical spine. Head CT 10/15/18 13:26 CONCLUSION: 1. Mild subdural hemorrhage seen at the right frontal region, left tentorium, left anterior falx, and left temporal region. The left temporal region hemorrhage could also be subarachnoid hemorrhage. 2. Suspected skull base fracture around the sphenoid sinus and at the anterior inferior aspect of the right middle cranial fossa. There appears to be air within the suprasellar cistern region. . Abdomen/Pelvis CT 10/15/18 15:27 CONCLUSION: 1. Extensive wall thickening urinary bladder, neoplastic process should be excluded. 2. Diverticulosis without diverticulitis. 3. Bilateral nonobstructing renal calculi. 4. Left basilar infiltrate. Chest CT 10/15/18 15:27 CONCLUSION: 1. Prominent cavitary mass along the anterior lateral left upper lung. This could be inflammatory/infectious versus neoplastic. It is nonspecific. 2. Patchy areas of consolidation seen at the posterior left lower lung with some lesser degree of cavitary change. This most closely resembles postinflammatory change although is nonspecific. 3. Small nodules measuring less than 5 mm at the anterior left lower lung and at the right middle lobe. These are nonspecific. They can be followed. 4. Significant adenopathy is not seen. Exam Vital signs: Vital Signs 10/15/18 13:21 10/15/18 13:25 10/15/18 13:26 Temperature 99.1 F 99.1 F Pulse Rate 124 H 117 H Respiratory Rate 18 18 Blood Pressure 142/64 H 153/86 H Pulse Oximetry 100 100 100 10/15/18 13:35 10/15/18 14:10 10/15/18 14:39 Temperature Pulse Rate 122 H Respiratory Rate 25 H 16 Blood Pressure 139/75 Pulse Oximetry 97 100 100 10/15/18 14:41 10/15/18 15:12 10/15/18 15:51 Temperature 101.8 F H Pulse Rate 132 H 144 H 134 H Respiratory Rate 16 16 16 Blood Pressure 157/81 H 160/83 H 160/83 H Pulse Oximetry 100 100 100 10/15/18 16:05 10/15/18 16:07 10/15/18 17:46 Temperature 101.0 F H 101.0 F H Pulse Rate 121 H 119 H 121 H Respiratory Rate 16 16 18 Blood Pressure 142/68 H 142/68 H 150/84 H Pulse Oximetry 100 100 10/15/18 17:47 10/15/18 18:14 10/15/18 18:19 Temperature 101.5 F H Pulse Rate 120 H Respiratory Rate 22 22 Blood Pressure 106/75 Pulse Oximetry 100 100 Intake & Output 10/14/18 10/15/18 10/15/18 18:59 06:59 18:59 Intake Total 650 / 650 Balance 650 / 650 Weight 80 kg Intake: IV 250 / 250 Diprivan 1000 mg/100 ml Inj 1, 100 / 100 000 mg In 100 ml @ 5 MCG/KG/MIN 2.4 mls/hr IV.CONT TITRATE PRN Rx#:[id number] Protonix Inj 80 MG In NS Inj 50 50 / 50 ML @ 600 mls/hr IV.SIG BOLUS ONE Rx#:[id number] Flagyl 500 MG Inj 100 ML @ 100 100 / 100 mls/hr IV.SIG Q8H TOAN Rx#: [id number] Other 0 / 0 Rbc As-3 Leukoreduced Unit 0 / 0 [id number] Intake (Blood Product) Amt 400 / 400 Rbc As-3 Leukoreduced Unit 400 / 400 [id number] Rbc As-3 Leukoreduced Unit 0 / 0 [id number] Narrative: HEENT/ Neuro: Sedated, Pupils 2mm bilaterally constricted, orally intubated, Pallor present, no icterus, tongue/ mucosa moist, dried blood noted on face. Neck: No JVD Chest/Pulm: on mech vent, good air entry bilaterally, no wheezing or crackles CVS: S1-S2 regular, no murmur GI/abdomen: soft, nontender, bowel sounds sluggish Extremities: warm bilaterally, no edema Caprini VTE Risk Assessment Caprini VTE Risk Assessment: Moderate/High Risk (score >= 2) VTE Pharmacological Exception Reason: Hemorrhage Caprini Risk Assessment Model: Point Value = 1 Point Value = 2 Point Value = 3 Point Value = 5 Age 41-60 Minor surgery BMI > 25 kg/m2 Swollen legs Varicose veins or History of unexplained or recurrent spontaneous Oral contraceptives or hormone replacement Sepsis (< 1 month) Serious lung disease, including pneumonia (< 1 month) Abnormal pulmonary function Acute myocardial infarction Congestive heart failure (< 1 month) History of inflammatory bowel disease Medical patient at bed rest Age 61-74 Arthroscopic surgery Major open surgery (> 45 min) Laparoscopic surgery (> 45 min) Malignancy Confined to bed (> 72 hours) Immobilizing plaster cast Central venous access Age >= 75 History of VTE Family history of VTE Factor V Leiden Prothrombin [id number] Lupus anticoagulant Anticardiolipin antibodies Elevated serum homocysteine Heparin-induced thrombocytopenia Other congenital or acquired thrombophilia Stroke (< 1 month) Elective arthroplasty Hip, pelvis, or leg fracture Acute spinal cord injury (< 1 month) Prophylaxis Regimen: Total Risk Factor Score Risk Level Prophylaxis Regimen 0-1 Low Early ambulation 2 Moderate Order ONE of the following: *Sequential Compression Device (SCD) *Heparin 5000 units SQ BID 3-4 Higher Order ONE of the following medications: *Heparin 5000 units SQ TID *Enoxaparin/Lovenox 40 mg SQ daily (WT < 150 kg, CrCl > 30 mL/min) *Enoxaparin/Lovenox 30 mg SQ daily (WT < 150 kg, CrCl > 10-29 mL/min) *Enoxaparin/Lovenox 30 mg SQ BID (WT < 150 kg, CrCl > 30 mL/min) AND/OR *Sequential Compression Device (SCD) 5 or more Highest Order ONE of the following medications: *Heparin 5000 units SQ TID (Preferred with Epidurals) *Enoxaparin/Lovenox 40 mg SQ daily (WT < 150 kg, CrCl > 30 mL/min) *Enoxaparin/Lovenox 30 mg SQ daily (WT < 150 kg, CrCl > 10-29 mL/min) *Enoxaparin/Lovenox 30 mg SQ BID (WT < 150 kg, CrCl > 30 mL/min) AND *Sequential Compression Device (SCD) Assessment and Plan - Assessment and Plan Plan: 53-year-old male with: Encephalopathy Traumatic subdural hemorrhage/subarachnoid hemorrhage with skull base fracture Upper GI bleed Anemia-most likely acute on chronic blood loss related Sepsis Pneumonia Left upper lobe cavitary lesion-mass versus infectious versus other inflammatory process COPD Hypertension Plan: Neuro: Sedation with propofol, daily sedation vacation. Follow neuro status per protocol. Neurosurgery consulted, Dr. Garcia performed burrhole with ICP monitor placement Repeat head CT in a.m. Pulmonary: Continue mechanical ventilation, vent bundle, bronchodilators. Sputum put to be sent for Gram stain and cultures, AFB culture. Consulted pulmonary/ID for further evaluation of left upper lobe cavitary lesion. GI/liver: N.p.o. for now. NG tube placed to low intermittent wall suction. Consulted GI for further evaluation of upper GI bleed with severe anemia. Discussed with Dr. Pretty who will plan to perform EGD in a.m. Currently being transfused PRBCs. Protonix bolus followed by drip initiated in ER. Follow serial H&H Heme: Follow CBC, serial H&H. Coags okay. Transfuse to keep hemoglobin above 7 g% provided patient maintains hemodynamic stability. ID: Follow-up blood cultures, sputum Gram stain and cultures, AFB staining and culture. UA and urine cultures. Empiric antibiotic coverage with IV ceftazidime/vancomycin/Flagyl ID consult requested for further evaluation of sepsis/pulmonary cavitary lesion. Endocrine: Watch for hyperglycemia, SSI for glycemic control if needed. Prophylaxis: Protonix GTT, SCDs. No subcu heparin in view of GI bleed, subdural hemorrhage/ subarachnoid hemorrhage until cleared by neurosurgery and GI Condition critical Time spent on critical care excluding procedures 70 minutes
--- NOTE | 2018-10-15 19:46 | ECG ---
Date Performed: 10/15/2018 Time Performed: 13:28:37 PTAGE: 53 years EKG: SINUS TACHYCARDIA WITH SHORT HI INTERVAL RIGHT BUNDLE BRANCH BLOCK ABNORMAL ECG PREVIOUS TRACING : 12/17/2015 08.00 Compared to previous tracing, rate faster DOCTOR: Fer Bell Interpretating Date/Time 10/15/2018 19:44:46
[2018-10-15 20:13] LABS: Creatine Kinase 140 U/L (39-308)
[2018-10-15] MEDS: Vancomycin Inj 1,250 MG in Sodium Chlor 0.9% Inj 250 ML IV.SIG SCH (20:28)
--- NOTE | 2018-10-15 21:14 | MB ---
cc: Sebas Parisi MD DATE: 10/15/2018 REASON FOR CONSULTATION: Respiratory failure and cavitary left upper lobe lung mass. HISTORY OF PRESENT ILLNESS: This is a 53-year-old man who has a prior history of hypertension and COPD, who was found down at home with altered mental status and was brought to the ER by [facility]. The patient apparently was intubated with some difficulty in the ER and placed on ventilator support. A CT of the head revealed a left-sided subdural and subarachnoid hemorrhage with a base of skull fracture and air around the sella. Hemoglobin was low at 5.5. The patient had an NG placed, which showed coffee-ground material that was suctioned from his stomach. The patient has now been placed on IV fluids for hypotension and for hydration and his blood pressure did improve. He was seen by neurosurgery and has had a bolt placed in the right parietal region. The patient also had some facial contusions and is presently intubated and on ventilator support with FiO2 of 40%. He is not responding to any commands and is presently on a propofol drip for sedation. PAST HISTORY: Not immediately available. There is a history for hypertension. HABITS: Unknown. FAMILY HISTORY: Unavailable. MEDICATIONS: Medication list was reviewed from the chart included ceftazidime 1 g every 8 hours, vancomycin 1250 mg every 24 hours, and propofol drip. PHYSICAL EXAMINATION: GENERAL: This is a thinly built, middle-aged, white male who is intubated. He has been assisting the ventilator. VITAL SIGNS: His blood pressure is 112/60, heart rate of 116, respirations are 22-24, temperature 96.5. HEENT: Head is normocephalic. Pupils reactive on the left. There are a few ecchymotic areas of the right forehead area and a hematoma around the orbit on the right. Throat has few secretions. NG tube in the nose which is draining bloody fluid. Ears: No inflammation. NECK: No venous distention. No thyromegaly or lymphadenopathy. CHEST: Equal movements with expiratory wheezes bilaterally with prolonged expirations. No crackles. HEART: Sounds are irregular S1 and S2. No murmur. No S3. ABDOMEN: Soft, scaphoid, without masses. No organomegaly or tenderness. EXTREMITIES: Muscle wasting and decreased peripheral pulses and reflexes are not elicited. Babinski is equivocal. SKIN: No lesions are noted. IMPRESSION: 1. Traumatic subdural and subarachnoid hemorrhage at the base of skull fracture. 2. Severe anemia with gastrointestinal bleed. 3. Sepsis. 4. Probable pneumonia. 5. Cavitary left upper lobe lung mass. Rule out malignancy versus infectious process of 6. Hypertension. PLAN: The patient will be maintained on ventilator support, nebulized DuoNeb solution added q.i.d. p.r.n. and repeat chest x-ray in the a.m. Cultures sent from the tracheal aspirate for Gram stain, AFB. We will keep him sedated for now and a blood gas study repeated, with an AC rate of 14 and FiO2 of 40%. If his clinical condition is stabilized and he could be weaned off the ventilator, we will schedule him for bronchoscopy and evaluation of the left upper lobe lung mass. Continue with antibiotic coverage including vancomycin and ceftazidime. Followup CBC, electrolytes to be done in a.m. Neuro consult is in progress. Thank you, Dr. Fullre, for this consultation. Sebas Parisi MD VJD/humphrey , 07:43 PM , 07:56 PM
[2018-10-15 21:58] LABS: Hematocrit 25.6 % (39.0-51.0)
[2018-10-16 02:04] LABS: Hematocrit 26.3 % (39.0-51.0); Hemoglobin 9.2 gm/dL (13.0-17.0)
[2018-10-16 02:29] LABS: Alanine Aminotransferase 15 U/L (12-78); Alkaline Phosphatase 66 U/L (45-117); Anion Gap 9 meq/L (5-15); Aspartate Aminotransferase 32 U/L (15-37); Blood Urea Nitrogen 21 mg/dL (7-18); Carbon Dioxide 22.8 meq/L (21.0-32.0); Chloride 110 meq/L (98-107); Creatine Kinase 79 U/L (39-308); Glomerular Filtration Rate Greater Than 89 mL/min (>89); Glucose,Random 146 mg/dL (74-106); Potassium 3.1 meq/L (3.5-5.1); Sodium 142 meq/L (136-145); Total Protein 5.9 g/dL (6.4-8.2)
[2018-10-16] MEDS: Pantoprazole Inj 80 MG in Sodium Chlor 0.9% Inj 100 ML IV.CONT SCH (03:43)
[2018-10-16] MEDS: Propofol 1000 mg/100 ml Inj 1,000 MG/100 ML BOTTLE IV.CONT PRN ×5 (03:43→22:41)
[2018-10-16] MEDS ORDERED: Chlorhexidine Gluconate 2% 1 Pack (2 Cloths) TOPICAL PRN (04:00)
[2018-10-16] MEDS: Chlorhexidine Gluconate 2% 1 Pack (2 Cloths) TOPICAL SCH (04:07)
[2018-10-16] MEDS ORDERED: Potassium Chlor 40 mEq Premix 40 MEQ/100 ML PIGGYBACK IV.SIG PRN ×2 (04:34)
[2018-10-16] MEDS ORDERED: Potassium Phosphate 500 MG Soluble Tablet PO PRN ×2 (04:34)
[2018-10-16] MEDS ORDERED: Magnesium Sulfate Inj 4 GM in Sodium Chlor 0.9% Inj 92 ML IV.SIG PRN (04:34)
[2018-10-16] MEDS ORDERED: Potassium Chloride 25 MEQ Effervescent Tablet PO PRN (04:34)
[2018-10-16] MEDS ORDERED: Magnesium Oxide 400 MG Tablet PO PRN (04:34)
[2018-10-16] MEDS ORDERED: Sodium Phosphate Inj 30 MMOL in Sodium Chlor 0.9% Inj 250 ML IV.SIG PRN (04:34)
[2018-10-16] MEDS ORDERED: Potassium Phosphate Inj 30 MMOL in Sodium Chlor 0.9% Inj 250 ML IV.SIG PRN (04:34)
[2018-10-16] MEDS ORDERED: Magnesium Sulfate Inj 2 GM in Sodium Chlor 0.9% Inj 96 ML IV.SIG PRN (04:34)
[2018-10-16 05:27] LABS: ABG Base Excess 0.7 mmol/L (-2-2); ABG PCO2 34 mmHg (38-42); ABG PO2 185 mmHg (61-120)
[2018-10-16] MEDS: Vancomycin Inj 1,250 MG in Sodium Chlor 0.9% Inj 250 ML IV.SIG SCH ×2 (05:28→17:58)
[2018-10-16] MEDS: Potassium Chlor 20 mEq Premix 20 MEQ/100 ML PIGGYBACK IV.SIG PRN ×4 (05:28→11:24)
[2018-10-16] MEDS: Sod Chloride 0.9% Inj 1,000 ML IV.CONT SCH ×2 (08:37→19:15)
[2018-10-16 08:48] LABS: Hematocrit 21.5 % (39.0-51.0); Hemoglobin 8.1 gm/dL (13.0-17.0)
[2018-10-16 08:52] LABS: Baso # (Auto) 0.1 th/mm3 (0.0-0.2); Baso % (Auto) 0.4 % (0.0-2.0); Eos # (Auto) 0.2 th/mm3 (0.0-0.4); Eos % (Auto) 0.9 % (0.0-4.0); Hematocrit 26.7 % (39.0-51.0); Hemoglobin 9.3 gm/dL (13.0-17.0); Lymph # (Auto) 1.9 th/mm3 (1.0-4.8); Lymph % (Auto) 9.6 % (9.0-44.0); Mean Corpuscular HGB Conc 34.7 % (32.0-36.0); Mean Corpuscular Volume 92.2 fL (80.0-100.0); Mean Platelet Volume 8.4 fL (7.0-11.0); Mono # (Auto) 3.2 th/mm3 (0.0-0.9); Mono % (Auto) 15.8 % (0.0-8.0); Neut # (Auto) 14.9 th/mm3 (1.8-7.7); Neut % (Auto) 73.3 % (16.0-70.0); Platelet Count 266 th/mm3 (150-450); Red Blood Count 2.89 mil/mm3 (4.50-5.90); Red Cell Distribution Width 16.8 % (11.6-17.2); White Blood Count 20.3 th/mm3 (4.0-11.0)
--- NOTE | 2018-10-16 09:58 | P.CONGI ---
History of Present Illness Consult date: 10/16/18 Consult reason: Hemoglobin 5.5 Coffee-ground aspirate from orogastric tube Chief complaint: GI bleed,anemia, ICH History of Present Illness: This patient is a 53-year-old male with a past medical history significant for hypertension, COPD, drug and narcotic use, extensive EtOH abuse and BPH. Patient was found down at home, emergency service was notified. Patient presented to the emergency room at [facility] was intubated and mechanically ventilated. CT at that time revealed a left-sided small subdural hemorrhage and subarachnoid hemorrhage hemorrhage with skull base fracture. Upon arrival, hemoglobin noted to be 5.5 and he was also noted to have coffee -ground material suctioned from orogastric tube. Upon consultation, patient siblings assisting with information regarding HPI. They state patient has family history of gastric ulcers-his mother. It is unknown if patient has ever had an EGD or colonoscopy in the past. Surgical history includes left arm metal plate placement in 2016. They endorse that patient has used multiple types of illicit drugs for many years as well as EtOH abuse for over 40 years averaging about a 12 pack of beer per day. Patient currently intubated and mechanically ventilated. Hemoglobin 8.1 hematocrit 12.5 post transfusion of 2 units of packed RBCs. Orogastric tube in place to low intermittent wall suction with a bright red to maroon colored return noted in collection container estimated 150-200 mL's. Patient currently on Protonix drip at 8 mg/h and propofol for sedation. Our service has been consulted to evaluate patient for anemia and coffee-ground aspirate. Review of Systems unobtainable due to endotracheal tube, other PMFSH - History History Provided By: Transfer Man / EMT - Medical History Medical History: Medical History (Last Updated 10/15/18 @ 16:16 by Rod Fuller MD) Medical history unknown - Tobacco History Smoking Status: Unknown if ever smoked - Alcohol History How Often Do You Have a Drink Containing Alcohol: Unable to Obtain - Substance Use History Substance History: No History of Abuse - Travel History Recent Travel in the [place] Within the Last 8 Weeks: No Recent Travel Out of the Country Within the Last 8 Weeks: No - Immunization History Tetanus Immunization: Unsure Medications and Allergies Active Medications: Active Medications Albuterol (Duoneb Neb (Oj)) 1 ampul NEB Q8HR ALT NEB OJ Last Admin: 10/16/18 04:05 Dose: 1 ampul Chlorhexidine Gluconate (Chlorhexidine 2% Cloth) 3 pack TOPICAL DAILY@0400 [facility] Stop: 10/21/18 03:59 Last Admin: 10/16/18 04:07 Dose: 3 pack Chlorhexidine Gluconate (Chlorhexidine 2% Cloth) 3 pack TOPICAL DAILY@0400 PRN PRN Reason: Extra cloth needed Stop: 10/21/18 03:59 Propofol (Diprivan 1000 Mg/100 Ml Inj) 1,000 mg in 100 mls @ 2.4 mls/hr IV.CONT TITRATE PRN; Protocol PRN Reason: Per Protocol Last Admin: 10/16/18 08:36 Dose: 50 mcg/kg/min, 24 mls/hr Pantoprazole Sodium 80 mg/ (Sodium Chloride) 100 mls @ 10 mls/hr IV.CONT CONT [facility] Last Admin: 10/16/18 03:43 Dose: 10 mls/hr Midazolam HCl (Versed Inj) 100 mg in 100 mls @ 2 mls/hr IV.CONT TITRATE PRN; Protocol PRN Reason: See protocol Ceftazidime 1,000 mg/ Sodium (Chloride) 100 mls @ 200 mls/hr IV.SIG Q8H [facility] Last Admin: 10/16/18 09:32 Dose: 200 mls/hr Metronidazole/Sodium Chloride (Flagyl 500 Mg Inj) 100 mls @ 100 mls/hr IV.SIG Q8H [facility] Last Infusion: 10/16/18 09:32 Dose: Infused Vancomycin HCl 1,250 mg/ (Sodium Chloride) 262.5 mls @ 250 mls/hr IV.SIG Q12H [facility] Last Infusion: 10/16/18 08:17 Dose: Infused Sodium Chloride (Ns Inj) 1,000 mls @ 75 mls/hr IV.CONT .[id number] [facility] Last Admin: 10/16/18 08:37 Dose: 75 mls/hr Magnesium Sulfate 2 gm/ Sodium (Chloride) 100 mls @ 50 mls/hr IV.SIG UNSCH PRN PRN Reason: For Magnesium 1.2 - 1.6 mg/dL Potassium Chloride (Kcl 40 Meq Premix Inj) 40 meq in 100 mls @ 25 mls/hr IV.SIG Q2H PRN PRN Reason: For Potassium 2.8 - 3.2 mEq/L Potassium Chloride (Kcl 20 Meq Premix Inj) 20 meq in 100 mls @ 50 mls/hr IV.SIG Q2H PRN PRN Reason: For Potassium 3.3 - 3.5 mEq/L Last Admin: 10/16/18 09:32 Dose: 50 mls/hr Potassium Chloride (Kcl 40 Meq Premix Inj) 40 meq in 100 mls @ 25 mls/hr IV.SIG UNSCH PRN PRN Reason: For Potassium 3.3 - 3.5 mEq/L Potassium Chloride (Kcl 20 Meq Premix Inj) 20 meq in 100 mls @ 50 mls/hr IV.SIG Q2H PRN PRN Reason: For Potassium 2.8 - 3.2 mEq/L Sodium Phosphate 30 mmol/ (Sodium Chloride) 260 mls @ 42 mls/hr IV.SIG UNSCH PRN PRN Reason: For Phosphorus < 2.5 mg/dL Magnesium Sulfate 4 gm/ Sodium (Chloride) 100 mls @ 50 mls/hr IV.SIG UNSCH PRN PRN Reason: For Magnesium 0.9 - 1.1 mg/dL Potassium Phosphate 30 mmol/ (Sodium Chloride) 260 mls @ 42 mls/hr IV.SIG UNSCH PRN PRN Reason: SEE LABEL COMMENTS Magnesium Oxide (Mag-Ox) 800 mg PO UNSCH PRN PRN Reason: For Magnesium 1.2 - 1.6 mg/dL Miscellaneous Information ([facility] Ordered Lab Info) 0 each OTHER ONCE ONE Stop: 10/17/18 05:46 Pharmacy Profile Note (Vancomycin Consult Pharmacy) 1 each OTHER UNSCH PRN PRN Reason: Pharmacy to dose Potassium Bicarb/Potassium Chloride (K-Lyte Cl Eff) 50 meq PO UNSCH PRN PRN Reason: For Potassium 3.3 - 3.5 mEq/L Potassium Phosphate (K-Phos Original) 2,000 mg PO Q4H PRN PRN Reason: Phosphorus Less Than 2.5 mg/dL Potassium Phosphate (K-Phos Original) 2,000 mg PO UNSCH PRN PRN Reason: SEE LABEL COMMENTS Sodium Chloride (Ns Flush) 2 ml IV.FLUSH PRN PRN PRN Reason: FLUSH AFTER USING IV ACCESS Allergies Allergy/AdvReac Type Severity Reaction Status Date / Time lisinopril Allergy Intermediate hallucinati Verified 10/15/18 13:39 ons amlodipine Allergy Unknown headaches Verified 10/15/18 13:38 Home Medications Medication Instructions Recorded Confirmed Type amlodipine [Norvasc] 5 mg PO DAILY 10/15/18 10/15/18 History tamsulosin [Flomax] 0.4 mg PO DAILY 10/15/18 10/15/18 History Exam Vital signs: Vital Signs 10/15/18 13:21 10/15/18 13:25 10/15/18 13:26 Temperature 99.1 F 99.1 F Pulse Rate 124 H 117 H Respiratory Rate 18 18 Blood Pressure 142/64 H 153/86 H Pulse Oximetry 100 100 100 10/15/18 13:35 10/15/18 14:10 10/15/18 14:39 Temperature Pulse Rate 122 H Respiratory Rate 25 H 16 Blood Pressure 139/75 Pulse Oximetry 97 100 100 10/15/18 14:41 10/15/18 15:12 10/15/18 15:51 Temperature 101.8 F H Pulse Rate 132 H 144 H 134 H Respiratory Rate 16 16 16 Blood Pressure 157/81 H 160/83 H 160/83 H Pulse Oximetry 100 100 100 10/15/18 16:05 10/15/18 16:07 10/15/18 17:38 Temperature 101.0 F H 101.0 F H Pulse Rate 121 H 119 H Respiratory Rate 16 16 Blood Pressure 142/68 H 142/68 H Pulse Oximetry 100 100 100 10/15/18 17:40 10/15/18 17:46 10/15/18 17:47 Temperature Pulse Rate 121 H Respiratory Rate 22 Blood Pressure 150/84 H 139/85 Pulse Oximetry 100 100 100 10/15/18 17:48 10/15/18 17:50 10/15/18 17:52 Temperature Pulse Rate 122 H 122 H 122 H Respiratory Rate 27 H 24 24 Blood Pressure 112/72 113/72 99/72 L Pulse Oximetry 100 100 100 10/15/18 18:00 10/15/18 18:01 10/15/18 18:14 Temperature 101.5 F H 101.5 F H Pulse Rate 121 H 121 H 120 H Respiratory Rate 22 24 22 Blood Pressure 106/74 106/75 Pulse Oximetry 100 100 100 10/15/18 18:16 10/15/18 18:19 10/15/18 18:30 Temperature Pulse Rate 118 H 121 H Respiratory Rate 22 22 21 Blood Pressure 97/75 L Pulse Oximetry 100 100 10/15/18 18:31 10/15/18 18:46 10/15/18 19:00 Temperature 102.0 F H Pulse Rate 124 H 121 H 122 H Respiratory Rate 21 21 21 Blood Pressure 92/74 L 107/79 115/80 Pulse Oximetry 100 100 100 10/15/18 19:13 10/15/18 19:16 10/15/18 19:30 Temperature Pulse Rate 120 H 124 H 126 H Respiratory Rate 21 22 22 Blood Pressure 102/74 109/79 113/79 Pulse Oximetry 100 100 100 10/15/18 20:00 10/15/18 20:30 10/15/18 20:48 Temperature Pulse Rate 119 H 125 H Respiratory Rate 24 22 22 Blood Pressure 108/75 92/75 L Pulse Oximetry 100 100 100 10/15/18 21:00 10/15/18 21:30 10/15/18 21:32 Temperature 103.5 F H 103.3 F H Pulse Rate 117 H 115 H 114 H Respiratory Rate 21 22 22 Blood Pressure 107/77 111/84 Pulse Oximetry 100 100 10/15/18 22:00 10/15/18 22:30 10/15/18 23:00 Temperature 102.7 F H 102.2 F H 101.7 F H Pulse Rate 109 H 105 H 105 H Respiratory Rate 23 22 22 Blood Pressure 145/89 H 141/89 H 141/88 H Pulse Oximetry 100 100 100 10/15/18 23:30 10/16/18 00:00 10/16/18 00:30 Temperature 101.5 F H 101.1 F H 100.8 F H Pulse Rate 102 H 100 H 97 H Respiratory Rate 21 21 21 Blood Pressure 125/86 129/85 140/87 Pulse Oximetry 100 100 100 10/16/18 01:00 10/16/18 01:18 10/16/18 01:30 Temperature 100.4 F H 100.0 F H Pulse Rate 94 H 93 H Respiratory Rate 21 21 21 Blood Pressure 129/85 130/87 Pulse Oximetry 100 100 100 10/16/18 02:00 10/16/18 02:30 10/16/18 03:00 Temperature 99.7 F H 99.5 F 99.5 F Pulse Rate 88 89 88 Respiratory Rate 19 20 20 Blood Pressure 126/84 135/88 124/84 Pulse Oximetry 100 100 100 10/16/18 03:30 10/16/18 04:00 10/16/18 04:05 Temperature 99.5 F 99.5 F Pulse Rate 87 87 87 Respiratory Rate 20 20 20 Blood Pressure 129/86 126/84 Pulse Oximetry 100 100 100 10/16/18 04:30 10/16/18 05:00 10/16/18 05:30 Temperature 99.5 F 99.3 F 99.1 F Pulse Rate 90 87 90 Respiratory Rate 19 19 20 Blood Pressure 141/80 H 134/84 131/83 Pulse Oximetry 100 100 100 10/16/18 06:00 10/16/18 06:30 10/16/18 07:00 Temperature 99.1 F 99.0 F 99.0 F Pulse Rate 89 89 87 Respiratory Rate 20 21 21 Blood Pressure 132/82 131/82 134/76 Pulse Oximetry 100 100 100 10/16/18 07:30 10/16/18 08:00 10/16/18 08:20 Temperature 99.0 F 99.0 F Pulse Rate 88 86 Respiratory Rate 22 22 22 Blood Pressure 125/79 129/82 Pulse Oximetry 100 100 100 10/16/18 08:30 10/16/18 09:00 10/16/18 09:03 Temperature 99.1 F 99.1 F 99.1 F Pulse Rate 87 87 88 Respiratory Rate 22 22 22 Blood Pressure 117/80 120/79 Pulse Oximetry 100 100 100 Intake & Output 10/15/18 10/16/18 10/16/18 18:59 06:59 18:59 Intake Total 1900 / 1900 862.5 / 862.5 1462.5 / 1462.5 Output Total 750 / 750 1300 / 1300 Balance 1150 / 1150 -437.5 / -437.5 1462.5 / 1462.5 Weight 59.2 kg 59.2 kg Intake: IV 1500 / 1500 862.5 / 862.5 1462.5 / 1462.5 Protonix Inj 80 MG In NS Inj 100 / 100 100 ML @ 10 mls/hr IV.CONT CONT [facility] Rx#:[id number] Diprivan 1000 mg/100 ml Inj 1, 100 / 100 200 / 200 100 / 100 000 mg In 100 ml @ 5 MCG/KG/MIN 2.4 mls/hr IV.CONT TITRATE PRN Rx#:[id number] NS Inj 1,000 ML @ 75 mls/hr IV. 800 / 800 CONT .[id number] OJ Rx#:[id number] Protonix Inj 80 MG In NS Inj 50 50 / 50 ML @ 600 mls/hr IV.SIG BOLUS ONE Rx#:[id number] KCl 20 mEq Premix Inj 20 meq In 200 / 200 100 ml @ 50 mls/hr IV.SIG Q2H PRN Rx#:[id number] NS Inj 250 ML @ 15 mls/hr IV. 250 / 250 SIG ONCE OJ Rx#:[id number] Vancomycin Inj 1,250 MG In NS 262.5 / 262.5 262.5 / 262.5 Inj 250 ML @ 250 mls/hr IV.SIG Q12H OJ Rx#:[id number] Tazicef Inj 1,000 MG In NS Inj 200 / 200 100 ML @ 200 mls/hr IV.SIG Q8H OJ Rx#:[id number] Flagyl 500 MG Inj 100 ML @ 100 100 / 100 100 / 100 100 / 100 mls/hr IV.SIG Q8H OJ Rx#: [id number] Other 0 / 0 Rbc As-3 Leukoreduced Unit 0 / 0 [id number] Intake (Blood Product) Amt 400 / 400 Rbc As-3 Leukoreduced Unit 400 / 400 [id number] Rbc As-3 Leukoreduced Unit 0 / 0 [id number] Output: Urine Amount (Catheter) 650 / 650 1200 / 1200 Indwelling Urethral Catheter 650 / 650 1200 / 1200 Gastric Drainage 100 / 100 100 / 100 Oral 100 / 100 100 / 100 Other: Weight On Admission 59.2 kg - Constitutional chronically ill appearing Comments: Intubated and mechanically ventilated Sedated with propofol for ventilator synchrony - Routine HEENT Exam Comments: Basal skull fracture - Routine Respiratory Exam Present: patient mechanically ventilated, CTA bilaterally - Routine Cardiovascular Exam Present: RRR - Routine Abdominal Exam Present: distended. Absent: firm Comments: Diminished bowel sounds - Routine Extremities Exam Present: pulses intact. Absent: edema - Routine Skin Exam Present: dry, warm Results - Labs CBC & Chem 7: 10/16/18 08:10 10/16/18 01:53 Labs: Laboratory Results - last 24 hr 10/15/18 10/15/18 10/15/18 13:30 13:30 13:30 WBC 20.6 H RBC 1.69 L Hgb 5.5 L* Hct 17.1 L* MCV 101.4 H MCH 32.5 MCHC 32.0 RDW 16.4 Plt Count 316 MPV 8.1 Prelim Diff (Auto) Slide review pending Neut % (Auto) 66.3 Lymph % (Auto) 20.9 Elliott % (Auto) 11.6 H Eos % (Auto) 0.2 Baso % (Auto) 1.0 Neut # (Auto) 13.6 H Lymph # (Auto) 4.3 Elliott # (Auto) 2.4 H Eos # (Auto) 0.0 Baso # (Auto) 0.2 WBC Differential Manual diff final Seg Neuts % (Manual) 73 H Lymphocytes % (Manual) 17 Monocytes % (Manual) 6 Basophils % (Manual) 2 Myelocytes % (Man) 1 H Promyelocytes % (Man) 1 H Abs Neuts (Manual) 15.5 H Differential Comment . Platelet Estimate Normal Platelet Morphology Clumped H PT 11.0 INR 1.1 APTT 22.4 L Puncture Site Patient Temperature O2 Saturation ABG pH ABG pCO2 ABG pO2 ABG HCO3 ABG O2 Content ABG Base Excess ABG Methemoglobin [place] Test Hemoglobin Carboxyhemoglobin O2 Delivery Device Vent Setting Inspired O2 Critical Value Sodium 140 Potassium 3.9 Chloride 107 Carbon Dioxide 23.2 Anion Gap 10 BUN 27 H Creatinine 0.76 Estimated GFR Greater than 89 POC Glucose Random Glucose 175 H Lactic Acid Calcium 6.9 L* Calcium Adj for Albumin 8.3 L Total Bilirubin 0.2 AST 50 H ALT 18 Alkaline Phosphatase 74 Ammonia Total Creatine Kinase Troponin I Less than 0.02 L Total Protein 6.5 Albumin 2.2 L TSH 0.555 Urine Color Urine Clarity Urine pH Ur Specific [place] Urine Protein Urine Glucose (UA) Urine Ketones Urine Occult Blood Urine Nitrate Urine Bilirubin Urine Urobilinogen Ur Leukocyte Esterase Urine RBC Urine WBC Ur Squamous Epith Cells Urine Bacteria Hyaline Casts Urine Mucus Micro UA Comment Ur Microscopic Review Urine Culture Comments Nasal Screen MRSA (PCR) Urine Opiates Screen Ur Barbiturates Screen Ur Amphetamines Screen U Benzodiazepines Scrn Urine Cocaine Screen U Cannabinoids Screen Serum Alcohol Less than 3 Blood Type Antibody Screen MTS Gel Crossmatch 10/15/18 10/15/18 10/15/18 13:30 13:30 13:30 WBC RBC Hgb Hct MCV MCH MCHC RDW Plt Count MPV Prelim Diff (Auto) Neut % (Auto) Lymph % (Auto) Elliott % (Auto) Eos % (Auto) Baso % (Auto) Neut # (Auto) Lymph # (Auto) Elliott # (Auto) Eos # (Auto) Baso # (Auto) WBC Differential Seg Neuts % (Manual) Lymphocytes % (Manual) Monocytes % (Manual) Basophils % (Manual) Myelocytes % (Man) Promyelocytes % (Man) Abs Neuts (Manual) Differential Comment Platelet Estimate Platelet Morphology PT INR APTT Puncture Site Patient Temperature O2 Saturation ABG pH ABG pCO2 ABG pO2 ABG HCO3 ABG O2 Content ABG Base Excess ABG Methemoglobin [place] Test Hemoglobin Carboxyhemoglobin O2 Delivery Device Vent Setting Inspired O2 Critical Value Sodium Potassium Chloride Carbon Dioxide Anion Gap BUN Creatinine Estimated GFR POC Glucose Random Glucose Lactic Acid 4.5 H* Calcium Calcium Adj for Albumin Total Bilirubin AST ALT Alkaline Phosphatase Ammonia 26 Total Creatine Kinase Troponin I Total Protein Albumin TSH Urine Color Urine Clarity Urine pH Ur Specific [place] Urine Protein Urine Glucose (UA) Urine Ketones Urine Occult Blood Urine Nitrate Urine Bilirubin Urine Urobilinogen Ur Leukocyte Esterase Urine RBC Urine WBC Ur Squamous Epith Cells Urine Bacteria Hyaline Casts Urine Mucus Micro UA Comment Ur Microscopic Review Urine Culture Comments Nasal Screen MRSA (PCR) Urine Opiates Screen Ur Barbiturates Screen Ur Amphetamines Screen U Benzodiazepines Scrn Urine Cocaine Screen U Cannabinoids Screen Serum Alcohol Blood Type A Positive Antibody Screen Negative MTS Gel Crossmatch 10/15/18 10/15/18 10/15/18 13:46 14:00 14:00 WBC RBC Hgb Hct MCV MCH MCHC RDW Plt Count MPV Prelim Diff (Auto) Neut % (Auto) Lymph % (Auto) Elliott % (Auto) Eos % (Auto) Baso % (Auto) Neut # (Auto) Lymph # (Auto) Elliott # (Auto) Eos # (Auto) Baso # (Auto) WBC Differential Seg Neuts % (Manual) Lymphocytes % (Manual) Monocytes % (Manual) Basophils % (Manual) Myelocytes % (Man) Promyelocytes % (Man) Abs Neuts (Manual) Differential Comment Platelet Estimate Platelet Morphology PT INR APTT Puncture Site Patient Temperature O2 Saturation ABG pH ABG pCO2 ABG pO2 ABG HCO3 ABG O2 Content ABG Base Excess ABG Methemoglobin [place] Test Hemoglobin Carboxyhemoglobin O2 Delivery Device Vent Setting Inspired O2 Critical Value Sodium Potassium Chloride Carbon Dioxide Anion Gap BUN Creatinine Estimated GFR POC Glucose 204 H Random Glucose Lactic Acid Calcium Calcium Adj for Albumin Total Bilirubin AST ALT Alkaline Phosphatase Ammonia Total Creatine Kinase Troponin I Total Protein Albumin TSH Urine Color Yellow Urine Clarity Clear Urine pH 5.0 Ur Specific [place]re 1.013 Urine Protein 30 H Urine Glucose (UA) Negative Urine Ketones Negative Urine Occult Blood Small H Urine Nitrate Negative Urine Bilirubin Negative Urine Urobilinogen Less than 2 Ur Leukocyte Esterase Moderate H Urine RBC 7 H Urine WBC 14 H Ur Squamous Epith Cells <1 Urine Bacteria Occasional H Hyaline Casts 3 Urine Mucus Few H Micro UA Comment Culture indicated Ur Microscopic Review Not Reportable Urine Culture Comments Culture indicated Nasal Screen MRSA (PCR) Urine Opiates Screen Neg Ur Barbiturates Screen Neg Ur Amphetamines Screen Pos H U Benzodiazepines Scrn Pos H Urine Cocaine Screen Neg U Cannabinoids Screen Pos H Serum Alcohol Blood Type Antibody Screen MTS Gel Crossmatch 10/15/18 10/15/18 10/15/18 14:36 16:55 18:47 WBC RBC Hgb Hct MCV MCH MCHC RDW Plt Count MPV Prelim Diff (Auto) Neut % (Auto) Lymph % (Auto) Elliott % (Auto) Eos % (Auto) Baso % (Auto) Neut # (Auto) Lymph # (Auto) Elliott # (Auto) Eos # (Auto) Baso # (Auto) WBC Differential Seg Neuts % (Manual) Lymphocytes % (Manual) Monocytes % (Manual) Basophils % (Manual) Myelocytes % (Man) Promyelocytes % (Man) Abs Neuts (Manual) Differential Comment Platelet Estimate Platelet Morphology PT INR APTT Puncture Site Right radial Patient Temperature 98.6 O2 Saturation 98 ABG pH 7.50 H ABG pCO2 32 L ABG pO2 484 H ABG HCO3 24 ABG O2 Content 10.3 L ABG Base Excess 1.4 ABG Methemoglobin 0.5 [place] Test Present Hemoglobin 6.5 L* Carboxyhemoglobin 0.0 O2 Delivery Device Ventilator Vent Setting Prvc/ac Inspired O2 100 Critical Value Yes Sodium Potassium Chloride Carbon Dioxide Anion Gap BUN Creatinine Estimated GFR POC Glucose 147 H Random Glucose Lactic Acid Calcium Calcium Adj for Albumin Total Bilirubin AST ALT Alkaline Phosphatase Ammonia Total Creatine Kinase Troponin I Total Protein Albumin TSH Urine Color Urine Clarity Urine pH Ur Specific [place] Urine Protein Urine Glucose (UA) Urine Ketones Urine Occult Blood Urine Nitrate Urine Bilirubin Urine Urobilinogen Ur Leukocyte Esterase Urine RBC Urine WBC Ur Squamous Epith Cells Urine Bacteria Hyaline Casts Urine Mucus Micro UA Comment Ur Microscopic Review Urine Culture Comments Nasal Screen MRSA (PCR) Urine Opiates Screen Ur Barbiturates Screen Ur Amphetamines Screen U Benzodiazepines Scrn Urine Cocaine Screen U Cannabinoids Screen Serum Alcohol Blood Type Antibody Screen MTS Gel Crossmatch See Detail 10/15/18 10/15/18 10/15/18 18:59 21:39 21:39 WBC RBC Hgb 9.0 L D Hct 25.6 L MCV MCH MCHC RDW Plt Count MPV Prelim Diff (Auto) Neut % (Auto) Lymph % (Auto) Elliott % (Auto) Eos % (Auto) Baso % (Auto) Neut # (Auto) Lymph # (Auto) Elliott # (Auto) Eos # (Auto) Baso # (Auto) WBC Differential Seg Neuts % (Manual) Lymphocytes % (Manual) Monocytes % (Manual) Basophils % (Manual) Myelocytes % (Man) Promyelocytes % (Man) Abs Neuts (Manual) Differential Comment Platelet Estimate Platelet Morphology PT INR APTT Puncture Site Patient Temperature O2 Saturation ABG pH ABG pCO2 ABG pO2 ABG HCO3 ABG O2 Content ABG Base Excess ABG Methemoglobin [place] Test Hemoglobin Carboxyhemoglobin O2 Delivery Device Vent Setting Inspired O2 Critical Value Sodium Potassium Chloride Carbon Dioxide Anion Gap BUN Creatinine Estimated GFR POC Glucose Random Glucose Lactic Acid 2.6 H Calcium Calcium Adj for Albumin Total Bilirubin AST ALT Alkaline Phosphatase Ammonia Total Creatine Kinase 140 Troponin I Less than 0.02 L Total Protein Albumin TSH Urine Color Urine Clarity Urine pH Ur Specific [place] Urine Protein Urine Glucose (UA) Urine Ketones Urine Occult Blood Urine Nitrate Urine Bilirubin Urine Urobilinogen Ur Leukocyte Esterase Urine RBC Urine WBC Ur Squamous Epith Cells Urine Bacteria Hyaline Casts Urine Mucus Micro UA Comment Ur Microscopic Review Urine Culture Comments Nasal Screen MRSA (PCR) Urine Opiates Screen Ur Barbiturates Screen Ur Amphetamines Screen U Benzodiazepines Scrn Urine Cocaine Screen U Cannabinoids Screen Serum Alcohol Blood Type Antibody Screen MTS Gel Crossmatch 10/15/18 10/15/18 10/16/18 22:45 23:33 01:53 WBC RBC Hgb Hct MCV MCH MCHC RDW Plt Count MPV Prelim Diff (Auto) Neut % (Auto) Lymph % (Auto) Elliott % (Auto) Eos % (Auto) Baso % (Auto) Neut # (Auto) Lymph # (Auto) Elliott # (Auto) Eos # (Auto) Baso # (Auto) WBC Differential Seg Neuts % (Manual) Lymphocytes % (Manual) Monocytes % (Manual) Basophils % (Manual) Myelocytes % (Man) Promyelocytes % (Man) Abs Neuts (Manual) Differential Comment Platelet Estimate Platelet Morphology PT INR APTT Puncture Site Patient Temperature O2 Saturation ABG pH ABG pCO2 ABG pO2 ABG HCO3 ABG O2 Content ABG Base Excess ABG Methemoglobin [place] Test Hemoglobin Carboxyhemoglobin O2 Delivery Device Vent Setting Inspired O2 Critical Value Sodium 142 Potassium 3.1 L D Chloride 110 H Carbon Dioxide 22.8 Anion Gap 9 BUN 21 H Creatinine 0.63 Estimated GFR Greater than 89 POC Glucose 154 H Random Glucose 146 H Lactic Acid Calcium 7.0 L* Calcium Adj for Albumin 8.6 Total Bilirubin 0.5 AST 32 ALT 15 Alkaline Phosphatase 66 Ammonia Total Creatine Kinase 79 Troponin I Less than 0.02 L Total Protein 5.9 L D Albumin 2.0 L TSH Urine Color Urine Clarity Urine pH Ur Specific [place] Urine Protein Urine Glucose (UA) Urine Ketones Urine Occult Blood Urine Nitrate Urine Bilirubin Urine Urobilinogen Ur Leukocyte Esterase Urine RBC Urine WBC Ur Squamous Epith Cells Urine Bacteria Hyaline Casts Urine Mucus Micro UA Comment Ur Microscopic Review Urine Culture Comments Nasal Screen MRSA (PCR) Not detected Urine Opiates Screen Ur Barbiturates Screen Ur Amphetamines Screen U Benzodiazepines Scrn Urine Cocaine Screen U Cannabinoids Screen Serum Alcohol Blood Type Antibody Screen MTS Gel Crossmatch 10/16/18 10/16/18 10/16/18 01:53 01:53 05:18 WBC 20.3 H RBC 2.89 L Hgb 9.2 L 9.3 L Hct 26.3 L 26.7 L MCV 92.2 D MCH 32.0 MCHC 34.7 RDW 16.8 Plt Count 266 MPV 8.4 Prelim Diff (Auto) Slide review pending Neut % (Auto) 73.3 H Lymph % (Auto) 9.6 Elliott % (Auto) 15.8 H Eos % (Auto) 0.9 Baso % (Auto) 0.4 Neut # (Auto) 14.9 H Lymph # (Auto) 1.9 Elliott # (Auto) 3.2 H Eos # (Auto) 0.2 Baso # (Auto) 0.1 WBC Differential Seg Neuts % (Manual) Lymphocytes % (Manual) Monocytes % (Manual) Basophils % (Manual) Myelocytes % (Man) Promyelocytes % (Man) Abs Neuts (Manual) Differential Comment . Platelet Estimate Platelet Morphology PT INR APTT Puncture Site Right radial Patient Temperature 98.6 O2 Saturation 97 ABG pH 7.47 H ABG pCO2 34 L ABG pO2 185 H ABG HCO3 24 ABG O2 Content 11.6 L ABG Base Excess 0.7 ABG Methemoglobin 1.7 [place] Test Present Hemoglobin 8.3 L Carboxyhemoglobin 1.2 O2 Delivery Device Ventilator Vent Setting Prvc/ac Inspired O2 40 Critical Value No Sodium Potassium Chloride Carbon Dioxide Anion Gap BUN Creatinine Estimated GFR POC Glucose Random Glucose Lactic Acid Calcium Calcium Adj for Albumin Total Bilirubin AST ALT Alkaline Phosphatase Ammonia Total Creatine Kinase Troponin I Total Protein Albumin TSH Urine Color Urine Clarity Urine pH Ur Specific [place] Urine Protein Urine Glucose (UA) Urine Ketones Urine Occult Blood Urine Nitrate Urine Bilirubin Urine Urobilinogen Ur Leukocyte Esterase Urine RBC Urine WBC Ur Squamous Epith Cells Urine Bacteria Hyaline Casts Urine Mucus Micro UA Comment Ur Microscopic Review Urine Culture Comments Nasal Screen MRSA (PCR) Urine Opiates Screen Ur Barbiturates Screen Ur Amphetamines Screen U Benzodiazepines Scrn Urine Cocaine Screen U Cannabinoids Screen Serum Alcohol Blood Type Antibody Screen MTS Gel Crossmatch 10/16/18 08:10 WBC RBC Hgb 8.1 L Hct 21.5 L MCV MCH MCHC RDW Plt Count MPV Prelim Diff (Auto) Neut % (Auto) Lymph % (Auto) Elliott % (Auto) Eos % (Auto) Baso % (Auto) Neut # (Auto) Lymph # (Auto) Elliott # (Auto) Eos # (Auto) Baso # (Auto) WBC Differential Seg Neuts % (Manual) Lymphocytes % (Manual) Monocytes % (Manual) Basophils % (Manual) Myelocytes % (Man) Promyelocytes % (Man) Abs Neuts (Manual) Differential Comment Platelet Estimate Platelet Morphology PT INR APTT Puncture Site Patient Temperature O2 Saturation ABG pH ABG pCO2 ABG pO2 ABG HCO3 ABG O2 Content ABG Base Excess ABG Methemoglobin [place] Test Hemoglobin Carboxyhemoglobin O2 Delivery Device Vent Setting Inspired O2 Critical Value Sodium Potassium Chloride Carbon Dioxide Anion Gap BUN Creatinine Estimated GFR POC Glucose Random Glucose Lactic Acid Calcium Calcium Adj for Albumin Total Bilirubin AST ALT Alkaline Phosphatase Ammonia Total Creatine Kinase Troponin I Total Protein Albumin TSH Urine Color Urine Clarity Urine pH Ur Specific Sayre Urine Protein Urine Glucose (UA) Urine Ketones Urine Occult Blood Urine Nitrate Urine Bilirubin Urine Urobilinogen Ur Leukocyte Esterase Urine RBC Urine WBC Ur Squamous Epith Cells Urine Bacteria Hyaline Casts Urine Mucus Micro UA Comment Ur Microscopic Review Urine Culture Comments Nasal Screen MRSA (PCR) Urine Opiates Screen Ur Barbiturates Screen Ur Amphetamines Screen U Benzodiazepines Scrn Urine Cocaine Screen U Cannabinoids Screen Serum Alcohol Blood Type Antibody Screen MTS Gel Crossmatch - Imaging Impressions Chest X-Ray 10/15/18 13:23 CONCLUSION: 1. ETT in good position. NGT in the stomach. 2. Ill-defined parenchymal and pleural opacities in the left upper lobe. Differential considerations include infection, including atypical infection, in the appropriate clinical setting. Cervical Spine CT 10/15/18 13:26 CONCLUSION: 1. No acute fracture or subluxation. 2. Partially imaged large cavitary lesion in the left lung apex. Chest CT to follow. 3. Multilevel degenerative spondylosis of the cervical spine. Head CT 10/15/18 13:26 CONCLUSION: 1. Mild subdural hemorrhage seen at the right frontal region, left tentorium, left anterior falx, and left temporal region. The left temporal region hemorrhage could also be subarachnoid hemorrhage. 2. Suspected skull base fracture around the sphenoid sinus and at the anterior inferior aspect of the right middle cranial fossa. There appears to be air within the suprasellar cistern region. . Abdomen/Pelvis CT 10/15/18 15:27 CONCLUSION: 1. Extensive wall thickening urinary bladder, neoplastic process should be excluded. 2. Diverticulosis without diverticulitis. 3. Bilateral nonobstructing renal calculi. 4. Left basilar infiltrate. Chest CT 10/15/18 15:27 CONCLUSION: 1. Prominent cavitary mass along the anterior lateral left upper lung. This could be inflammatory/infectious versus neoplastic. It is nonspecific. 2. Patchy areas of consolidation seen at the posterior left lower lung with some lesser degree of cavitary change. This most closely resembles postinflammatory change although is nonspecific. 3. Small nodules measuring less than 5 mm at the anterior left lower lung and at the right middle lobe. These are nonspecific. They can be followed. 4. Significant adenopathy is not seen. Assessment and Plan (1) GI bleed Status: Acute Code(s): K92.2 - Gastrointestinal hemorrhage, unspecified (2) Anemia Status: Acute Code(s): D64.9 - Anemia, unspecified - Plan This patient is a 53-year-old male with a past medical history significant for hypertension, COPD, drug and narcotic use, extensive EtOH abuse and BPH. Patient was found down at home, emergency service was notified. Patient presented to the emergency room at [facility] was intubated and mechanically ventilated. CT at that time revealed a left-sided small subdural hemorrhage and subarachnoid hemorrhage hemorrhage with skull base fracture. Upon arrival, hemoglobin noted to be 5.5 and he was also noted to have coffee -ground material suctioned from orogastric tube. Upon consultation, patient siblings assisting with information regarding HPI. They state patient has family history of gastric ulcers-his mother. It is unknown if patient has ever had an EGD or colonoscopy in the past. Surgical history includes left arm metal plate placement in 2016. They endorse that patient has used multiple types of illicit drugs for many years as well as EtOH abuse for over 40 years averaging about a 12 pack of beer per day. Patient currently intubated and mechanically ventilated. Hemoglobin 8.1 hematocrit 12.5 post transfusion of 2 units of packed RBCs. Orogastric tube in place to low intermittent wall suction with a bright red to maroon colored return noted in collection container estimated 150-200 mL's. Patient currently on Protonix drip at 8 mg/h and propofol for sedation. Our service has been consulted to evaluate patient for anemia and coffee-ground aspirate. Anemia Coffee-ground aspirate Hemoglobin 5.5 on arrival, hemoglobin 8.1 hematocrit 12.5 post transfusion of 2 units of packed cells Coffee-ground 2 maroon and bright red colored gastric aspirate in drainage collection container. Possible variceal bleed due to extensive EtOH abuse history 10/15/2018 CT abdomen and pelvis reveal the following--> 1. Extensive wall thickening urinary bladder, neoplastic process should be excluded. 2. Diverticulosis without diverticulitis. 3. Bilateral nonobstructing renal calculi. 4. Left basilar infiltrate. Plan -Orogastric tube to low intermittent wall suction -Monitor for bleeding -Monitor labs hemoglobin and hematocrit closely -Continue Protonix drip -Obtain consent for EGD -Avoid anticoagulants -Supportive care -Plan of care as per critical care medicine This patient has been seen by myself and Dr. Pretty and this note is written on his behalf - Attending Attestation Dr. Pretty
[2018-10-16 10:11] LABS: Eosinophils 1 % (0-4); Lymphocytes 9 % (9-44); Monocytes 8 % (0-8); Platelet Estimate Normal (Normal); Platelet Morphology Normal (Normal)
[2018-10-16 10:12] LABS: Ovalocytes 1+
[2018-10-16] MEDS ORDERED: LORazepam 1 MG Tablet PO PRN (10:58)
[2018-10-16] MEDS ORDERED: Haloperidol Inj 5 MG/ML Ampul IV.PUSH PRN (10:58)
--- NOTE | 2018-10-16 10:58 | P.PNCC ---
Subjective Subjective Remarks/Hospital Course: 10/15: 53-year-old male with a medical history significant for hypertension, COPD who was found down at home, EMS was called and attempted intubation in the field for altered mental status after giving Versed and etomidate however patient had his teeth clenched and they could not intubated hence patient was bagged and brought to the ER. He was intubated in the ER and placed on mechanical ventilation. Head CT revealed left-sided small subdural hemorrhage and subarachnoid hemorrhage with skull base fracture with air around the sella. His hemoglobin came back 5.5. He was also noted to have coffee-ground material suctioned out of his NG tube. No melena or rectal bleeding noted. He was never hypotensive with systolic blood pressure in the 150s though he was tachycardic on arrival. He did spike a temperature in the ER of 101. Chest x- ray showed possible cavitary lesion in the left apex. Patient was accepted for admission by critical care medicine service after ER physician as discussed with trauma surgeon as well as Dr. Garcia from neurosurgery. When I evaluated the patient in the ER he was sedated with propofol, orally intubated on mechanical ventilation. History was obtained by reviewing records and discussion with ER physician. 10/16: Remains sedated, intubated on mechanical ventilation. Patient reportedly has significant alcohol abuse history. Currently has ICP monitor in place. ICPs not elevated overnight. Transfused 2 units PRBCs with hemoglobin increased to 9 g%. Awaiting EGD by GI today. Objective Vital Signs / I&O: Vital Signs 10/15/18 13:21 10/15/18 13:25 10/15/18 13:26 Temperature 99.1 F 99.1 F Pulse Rate 124 H 117 H Respiratory Rate 18 18 Blood Pressure 142/64 H 153/86 H Pulse Oximetry 100 100 100 10/15/18 13:35 10/15/18 14:10 10/15/18 14:39 Temperature Pulse Rate 122 H Respiratory Rate 25 H 16 Blood Pressure 139/75 Pulse Oximetry 97 100 100 10/15/18 14:41 10/15/18 15:12 10/15/18 15:51 Temperature 101.8 F H Pulse Rate 132 H 144 H 134 H Respiratory Rate 16 16 16 Blood Pressure 157/81 H 160/83 H 160/83 H Pulse Oximetry 100 100 100 10/15/18 16:05 10/15/18 16:07 10/15/18 17:38 Temperature 101.0 F H 101.0 F H Pulse Rate 121 H 119 H Respiratory Rate 16 16 Blood Pressure 142/68 H 142/68 H Pulse Oximetry 100 100 100 10/15/18 17:40 10/15/18 17:46 10/15/18 17:47 Temperature Pulse Rate 121 H Respiratory Rate 22 Blood Pressure 150/84 H 139/85 Pulse Oximetry 100 100 100 10/15/18 17:48 10/15/18 17:50 10/15/18 17:52 Temperature Pulse Rate 122 H 122 H 122 H Respiratory Rate 27 H 24 24 Blood Pressure 112/72 113/72 99/72 L Pulse Oximetry 100 100 100 10/15/18 18:00 10/15/18 18:01 10/15/18 18:14 Temperature 101.5 F H 101.5 F H Pulse Rate 121 H 121 H 120 H Respiratory Rate 22 24 22 Blood Pressure 106/74 106/75 Pulse Oximetry 100 100 100 10/15/18 18:16 10/15/18 18:19 10/15/18 18:30 Temperature Pulse Rate 118 H 121 H Respiratory Rate 22 22 21 Blood Pressure 97/75 L Pulse Oximetry 100 100 10/15/18 18:31 10/15/18 18:46 10/15/18 19:00 Temperature 102.0 F H Pulse Rate 124 H 121 H 122 H Respiratory Rate 21 21 21 Blood Pressure 92/74 L 107/79 115/80 Pulse Oximetry 100 100 100 10/15/18 19:13 10/15/18 19:16 10/15/18 19:30 Temperature Pulse Rate 120 H 124 H 126 H Respiratory Rate 21 22 22 Blood Pressure 102/74 109/79 113/79 Pulse Oximetry 100 100 100 10/15/18 20:00 10/15/18 20:30 10/15/18 20:48 Temperature Pulse Rate 119 H 125 H Respiratory Rate 24 22 22 Blood Pressure 108/75 92/75 L Pulse Oximetry 100 100 100 10/15/18 21:00 10/15/18 21:30 10/15/18 21:32 Temperature 103.5 F H 103.3 F H Pulse Rate 117 H 115 H 114 H Respiratory Rate 21 22 22 Blood Pressure 107/77 111/84 Pulse Oximetry 100 100 10/15/18 22:00 10/15/18 22:30 10/15/18 23:00 Temperature 102.7 F H 102.2 F H 101.7 F H Pulse Rate 109 H 105 H 105 H Respiratory Rate 23 22 22 Blood Pressure 145/89 H 141/89 H 141/88 H Pulse Oximetry 100 100 100 10/15/18 23:30 10/16/18 00:00 10/16/18 00:30 Temperature 101.5 F H 101.1 F H 100.8 F H Pulse Rate 102 H 100 H 97 H Respiratory Rate 21 21 21 Blood Pressure 125/86 129/85 140/87 Pulse Oximetry 100 100 100 10/16/18 01:00 10/16/18 01:18 10/16/18 01:30 Temperature 100.4 F H 100.0 F H Pulse Rate 94 H 93 H Respiratory Rate 21 21 21 Blood Pressure 129/85 130/87 Pulse Oximetry 100 100 100 10/16/18 02:00 10/16/18 02:30 10/16/18 03:00 Temperature 99.7 F H 99.5 F 99.5 F Pulse Rate 88 89 88 Respiratory Rate 19 20 20 Blood Pressure 126/84 135/88 124/84 Pulse Oximetry 100 100 100 10/16/18 03:30 10/16/18 04:00 10/16/18 04:05 Temperature 99.5 F 99.5 F Pulse Rate 87 87 87 Respiratory Rate 20 20 20 Blood Pressure 129/86 126/84 Pulse Oximetry 100 100 100 10/16/18 04:30 10/16/18 05:00 10/16/18 05:30 Temperature 99.5 F 99.3 F 99.1 F Pulse Rate 90 87 90 Respiratory Rate 19 19 20 Blood Pressure 141/80 H 134/84 131/83 Pulse Oximetry 100 100 100 10/16/18 06:00 10/16/18 06:30 10/16/18 07:00 Temperature 99.1 F 99.0 F 99.0 F Pulse Rate 89 89 87 Respiratory Rate 20 21 21 Blood Pressure 132/82 131/82 134/76 Pulse Oximetry 100 100 100 10/16/18 07:30 18 08:00 10/16/18 08:20 Temperature 99.0 F 99.0 F Pulse Rate 88 86 Respiratory Rate 22 22 22 Blood Pressure 125/79 129/82 Pulse Oximetry 100 100 100 10/16/18 08:30 10/16/18 09:00 10/16/18 09:03 Temperature 99.1 F 99.1 F 99.1 F Pulse Rate 87 87 88 Respiratory Rate 22 22 22 Blood Pressure 117/80 120/79 Pulse Oximetry 100 100 100 10/16/18 10:00 10/16/18 10:03 Temperature 99.1 F 99.1 F Pulse Rate 89 86 Respiratory Rate 22 23 Blood Pressure 119/79 Pulse Oximetry 100 100 Intake & Output 10/15/18 10/16/18 10/16/18 18:59 06:59 18:59 Intake Total 1900 / 1900 862.5 / 862.5 1562.5 / 1562.5 Output Total 750 / 750 1300 / 1300 Balance 1150 / 1150 -437.5 / -437.5 1562.5 / 1562.5 Weight 59.2 kg 59.2 kg Intake: IV 1500 / 1500 862.5 / 862.5 1562.5 / 1562.5 Protonix Inj 80 MG In NS Inj 100 / 100 100 ML @ 10 mls/hr IV.CONT CONT TOAN Rx#:[id number] Diprivan 1000 mg/100 ml Inj 1, 100 / 100 200 / 200 100 / 100 000 mg In 100 ml @ 5 MCG/KG/MIN 2.4 mls/hr IV.CONT TITRATE PRN Rx#:[id number] NS Inj 1,000 ML @ 75 mls/hr IV. 800 / 800 CONT .[id number] TOAN Rx#:[id number] Protonix Inj 80 MG In NS Inj 50 50 / 50 ML @ 600 mls/hr IV.SIG BOLUS ONE Rx#:[id number] KCl 20 mEq Premix Inj 20 meq In 200 / 200 100 ml @ 50 mls/hr IV.SIG Q2H PRN Rx#:[id number] NS Inj 250 ML @ 15 mls/hr IV. 250 / 250 SIG ONCE TOAN Rx#:[id number] Vancomycin Inj 1,250 MG In NS 262.5 / 262.5 262.5 / 262.5 Inj 250 ML @ 250 mls/hr IV.SIG Q12H TOAN Rx#:[id number] Tazicef Inj 1,000 MG In NS Inj 200 / 200 100 / 100 100 ML @ 200 mls/hr IV.SIG Q8H TOAN Rx#:[id number] Flagyl 500 MG Inj 100 ML @ 100 100 / 100 100 / 100 100 / 100 mls/hr IV.SIG Q8H [facility] Rx#: [id number] Other 0 / 0 Rbc As-3 Leukoreduced Unit 0 / 0 [id number] Intake (Blood Product) Amt 400 / 400 Rbc As-3 Leukoreduced Unit 400 / 400 [id number] Rbc As-3 Leukoreduced Unit 0 / 0 [id number] Output: Urine Amount (Catheter) 650 / 650 1200 / 1200 Indwelling Urethral Catheter 650 / 650 1200 / 1200 Gastric Drainage 100 / 100 100 / 100 Oral 100 / 100 100 / 100 Other: Weight On Admission 59.2 kg Result Diagrams: 10/16/18 08:10 10/16/18 01:53 Objective Remarks: HEENT/ Neuro: ICP monitor in place on left, sedated, Pupils 2mm bilaterally constricted, orally intubated, Pallor present, no icterus, tongue/ mucosa moist Neck: No JVD Chest/Pulm: on mech vent, good air entry bilaterally, no wheezing or crackles CVS: S1-S2 regular, no murmur GI/abdomen: soft, nontender, bowel sounds sluggish Extremities: warm bilaterally, no edema Assessment and Plan - Assessment and Plan Plan: 53-year-old male with: Encephalopathy Traumatic subdural hemorrhage/subarachnoid hemorrhage with skull base fracture Upper GI bleed Anemia-most likely acute on chronic blood loss related Sepsis Pneumonia Left upper lobe cavitary lesion-mass versus infectious versus other inflammatory process COPD Hypertension History of alcohol abuse Plan: Neuro: Sedation with propofol, daily sedation vacation. Follow neuro status per protocol. Neurosurgery consulted, Dr. Garcia performed burrhole with ICP monitor placement Repeat head CT. We will initiate IV thiamine/folic acid/MVI. Watch for alcohol withdrawal. Initiate CIWA protocol if needed. Pulmonary: Continue mechanical ventilation, vent bundle, bronchodilators. Sputum sent for Gram stain and cultures, AFB culture. Consulted pulmonary/ID for further evaluation of left upper lobe cavitary lesion. GI/liver: N.p.o. for now. NG tube placed to low intermittent wall suction. Consulted GI for further evaluation of upper GI bleed with severe anemia. Discussed with Dr. Pretty on 10/15 who will plan to perform EGD. Protonix bolus followed by drip initiated in ER. Follow serial H&H Heme: Follow CBC, serial H&H. Coags okay. Transfused 2 units PRBCs on 10/15. transfuse to keep hemoglobin above 7 g% provided patient maintains hemodynamic stability. ID: Follow-up blood cultures, sputum Gram stain and cultures, AFB staining and culture. UA and urine cultures. Empiric antibiotic coverage with IV ceftazidime/vancomycin/Flagyl ID consult requested for further evaluation of sepsis/pulmonary cavitary lesion. Endocrine: Watch for hyperglycemia, SSI for glycemic control if needed. Prophylaxis: Protonix GTT, SCDs. No subcu heparin in view of GI bleed, subdural hemorrhage/ subarachnoid hemorrhage until cleared by neurosurgery and GI Condition critical Time spent on critical care excluding procedures 40 minutes
--- NOTE | 2018-10-16 11:36 | MB ---
cc: Vazquez Wing MD DATE: 10/16/2018 CONSULTING PHYSICIAN: DR. Rod Fuller. REASON FOR CONSULTATION: Sepsis, left lung cavitary lesion. HISTORY OF PRESENT ILLNESS: This is a 53-year-old white male, who was brought to the emergency department in an unresponsive state. The patient was noted to have a skull fracture and a subdural hemorrhage at the right frontal region. He was intubated. He was taken to surgery, and underwent bur hole with evacuation of subarachnoid and subdural hemorrhage. The patient is unresponsive on the ventilator. Information is obtained from the medical record. No history is available at this time. The patient had elevated temperature of 102 on admission. Temperatures today have decreased, and are in normal range; however, it was elevated most of yesterday evening. White blood cell count is elevated at 20.3. Chest x-ray showed ill-defined parenchymal and pleural opacity in the left upper lobe. CT scan of the chest shows a prominent cavitary mass along the left anterolateral upper lung, and also patchy areas of consolidation at the posterior left lower lobe with some lesser degree of cavitary change. Small nodules measuring less than 5 mm were seen at the anterior left lower lobe, and at the right middle lobe. Sputum culture is pending. Sputum AFB is pending. Blood culture is pending. Urine culture is pending. Urinalysis revealed 14 white cells and moderate leukocyte esterase. The patient is currently unresponsive on the ventilator. PAST MEDICAL HISTORY: The patient reportedly has hypertension. ALLERGIES: LISINOPRIL AND AMLODIPINE. MEDICATIONS: Flagyl, ceftazidime, vancomycin, levetiracetam, magnesium sulfate, pantoprazole, potassium, Diprivan. SOCIAL HISTORY: Unable to obtain. FAMILY HISTORY: Unable to obtain. REVIEW OF SYSTEMS: Unable to obtain. PHYSICAL EXAMINATION: GENERAL: This is a thin, white male, who appears poorly nourished. He is unresponsive on the ventilator. VITAL SIGNS: Temperature 99.1, BP 119/79, respirations 20, heart rate 86. HEENT: The head has a surgical bolt exiting the frontal aspect. There is ecchymosis at the right eye. Unable to assess extraocular movements. The oropharynx is intubated. NECK: No swelling. No adenopathy. LUNGS: Markedly diminished breath sounds with slight rhonchi. HEART: Normal S1 and S2. No murmurs heard. ABDOMEN: Bowel sounds present, but diminished. Soft, unable to appreciate tenderness. RECTAL: Not performed. GENITOURINARY: Genitalia appears normal. EXTREMITIES: No clubbing, cyanosis or edema. SKIN: No diffuse rash. NEUROLOGIC: Unable to assess. PSYCHIATRIC: Unable to assess. LABORATORY DATA: WBC 20.3, platelets 266, 73% neutrophils, 9% lymphocytes, 15% monocytes. Hemoglobin 9.3. Creatinine 0.63. Estimated GFR greater than 89. Liver function tests normal. IMPRESSION: 1. Cavitary lung infiltrate, possibly secondary to pneumonia. 2. Trauma with subarachnoid and subdural hemorrhage. The patient is status post bur hole and evacuation of hemorrhage. 3. Acute respiratory failure. 4. Leukocytosis and fever. 5. Possible sepsis. RECOMMENDATIONS: 1. Continue vancomycin. 2. Continue ceftazidime. 3. Continue Flagyl. 4. Monitor cultures including sputum AFB. 5. Monitor clinical status. Antibiotics will be adjusted depending on culture results and clinical status. Thank you for this consultation. The patient's progress will be monitored. Further recommendations will be given upon followup. Vazquez Wing MD FFNadeen/rh , 11:01 AM , 11:13 AM
--- NOTE | 2018-10-16 11:50 | P.PNNS ---
Subjective Interval history: intubated, sedated, ICPs stable overnight. sisters at bedside concerned patient had a seizure. Physical Exam Vital signs: Vital Signs 10/15/18 13:21 10/15/18 13:25 10/15/18 13:26 Temperature 99.1 F 99.1 F Pulse Rate 124 H 117 H Respiratory Rate 18 18 Blood Pressure 142/64 H 153/86 H Pulse Oximetry 100 100 100 10/15/18 13:35 10/15/18 14:10 10/15/18 14:39 Temperature Pulse Rate 122 H Respiratory Rate 25 H 16 Blood Pressure 139/75 Pulse Oximetry 97 100 100 10/15/18 14:41 10/15/18 15:12 10/15/18 15:51 Temperature 101.8 F H Pulse Rate 132 H 144 H 134 H Respiratory Rate 16 16 16 Blood Pressure 157/81 H 160/83 H 160/83 H Pulse Oximetry 100 100 100 10/15/18 16:05 10/15/18 16:07 10/15/18 17:38 Temperature 101.0 F H 101.0 F H Pulse Rate 121 H 119 H Respiratory Rate 16 16 Blood Pressure 142/68 H 142/68 H Pulse Oximetry 100 100 100 10/15/18 17:40 10/15/18 17:46 10/15/18 17:47 Temperature Pulse Rate 121 H Respiratory Rate 22 Blood Pressure 150/84 H 139/85 Pulse Oximetry 100 100 100 10/15/18 17:48 10/15/18 17:50 10/15/18 17:52 Temperature Pulse Rate 122 H 122 H 122 H Respiratory Rate 27 H 24 24 Blood Pressure 112/72 113/72 99/72 L Pulse Oximetry 100 100 100 10/15/18 18:00 10/15/18 18:01 10/15/18 18:14 Temperature 101.5 F H 101.5 F H Pulse Rate 121 H 121 H 120 H Respiratory Rate 22 24 22 Blood Pressure 106/74 106/75 Pulse Oximetry 100 100 100 10/15/18 18:16 10/15/18 18:19 10/15/18 18:30 Temperature Pulse Rate 118 H 121 H Respiratory Rate 22 22 21 Blood Pressure 97/75 L Pulse Oximetry 100 100 10/15/18 18:31 10/15/18 18:46 10/15/18 19:00 Temperature 102.0 F H Pulse Rate 124 H 121 H 122 H Respiratory Rate 21 21 21 Blood Pressure 92/74 L 107/79 115/80 Pulse Oximetry 100 100 100 10/15/18 19:13 10/15/18 19:16 10/15/18 19:30 Temperature Pulse Rate 120 H 124 H 126 H Respiratory Rate 21 22 22 Blood Pressure 102/74 109/79 113/79 Pulse Oximetry 100 100 100 10/15/18 20:00 10/15/18 20:30 10/15/18 20:48 Temperature Pulse Rate 119 H 125 H Respiratory Rate 24 22 22 Blood Pressure 108/75 92/75 L Pulse Oximetry 100 100 100 10/15/18 21:00 10/15/18 21:30 10/15/18 21:32 Temperature 103.5 F H 103.3 F H Pulse Rate 117 H 115 H 114 H Respiratory Rate 21 22 22 Blood Pressure 107/77 111/84 Pulse Oximetry 100 100 10/15/18 22:00 10/15/18 22:30 10/15/18 23:00 Temperature 102.7 F H 102.2 F H 101.7 F H Pulse Rate 109 H 105 H 105 H Respiratory Rate 23 22 22 Blood Pressure 145/89 H 141/89 H 141/88 H Pulse Oximetry 100 100 100 10/15/18 23:30 10/16/18 00:00 10/16/18 00:30 Temperature 101.5 F H 101.1 F H 100.8 F H Pulse Rate 102 H 100 H 97 H Respiratory Rate 21 21 21 Blood Pressure 125/86 129/85 140/87 Pulse Oximetry 100 100 100 10/16/18 01:00 10/16/18 01:18 10/16/18 01:30 Temperature 100.4 F H 100.0 F H Pulse Rate 94 H 93 H Respiratory Rate 21 21 21 Blood Pressure 129/85 130/87 Pulse Oximetry 100 100 100 10/16/18 02:00 10/16/18 02:30 10/16/18 03:00 Temperature 99.7 F H 99.5 F 99.5 F Pulse Rate 88 89 88 Respiratory Rate 19 20 20 Blood Pressure 126/84 135/88 124/84 Pulse Oximetry 100 100 100 10/16/18 03:30 10/16/18 04:00 10/16/18 04:05 Temperature 99.5 F 99.5 F Pulse Rate 87 87 87 Respiratory Rate 20 20 20 Blood Pressure 129/86 126/84 Pulse Oximetry 100 100 100 10/16/18 04:30 10/16/18 05:00 10/16/18 05:30 Temperature 99.5 F 99.3 F 99.1 F Pulse Rate 90 87 90 Respiratory Rate 19 19 20 Blood Pressure 141/80 H 134/84 131/83 Pulse Oximetry 100 100 100 10/16/18 06:00 10/16/18 06:30 10/16/18 07:00 Temperature 99.1 F 99.0 F 99.0 F Pulse Rate 89 89 87 Respiratory Rate 20 21 21 Blood Pressure 132/82 131/82 134/76 Pulse Oximetry 100 100 100 10/16/18 07:30 10/16/18 08:00 10/16/18 08:20 Temperature 99.0 F 99.0 F Pulse Rate 88 86 Respiratory Rate 22 22 22 Blood Pressure 125/79 129/82 Pulse Oximetry 100 100 100 10/16/18 08:30 10/16/18 09:00 10/16/18 09:03 Temperature 99.1 F 99.1 F 99.1 F Pulse Rate 87 87 88 Respiratory Rate 22 22 22 Blood Pressure 117/80 120/79 Pulse Oximetry 100 100 100 10/16/18 10:00 10/16/18 10:03 10/16/18 11:00 Temperature 99.1 F 99.1 F 99.0 F Pulse Rate 89 86 84 Respiratory Rate 22 23 22 Blood Pressure 119/79 Pulse Oximetry 100 100 100 10/16/18 11:03 Temperature 99.0 F Pulse Rate 81 Respiratory Rate 22 Blood Pressure 125/79 Pulse Oximetry 100 Intake & Output 10/15/18 10/16/18 10/16/18 18:59 06:59 18:59 Intake Total 1900 / 1900 862.5 / 862.5 1662.5 / 1662.5 Output Total 750 / 750 1300 / 1300 Balance 1150 / 1150 -437.5 / -437.5 1662.5 / 1662.5 Weight 59.2 kg 59.2 kg Intake: IV 1500 / 1500 862.5 / 862.5 1662.5 / 1662.5 Protonix Inj 80 MG In NS Inj 100 / 100 100 ML @ 10 mls/hr IV.CONT CONT TOAN Rx#:[id number] Diprivan 1000 mg/100 ml Inj 1, 100 / 100 200 / 200 100 / 100 000 mg In 100 ml @ 5 MCG/KG/MIN 2.4 mls/hr IV.CONT TITRATE PRN Rx#:[id number] NS Inj 1,000 ML @ 75 mls/hr IV. 800 / 800 CONT .[id number] TOAN Rx#:[id number] Protonix Inj 80 MG In NS Inj 50 50 / 50 ML @ 600 mls/hr IV.SIG BOLUS ONE Rx#:[id number] KCl 20 mEq Premix Inj 20 meq In 300 / 300 100 ml @ 50 mls/hr IV.SIG Q2H PRN Rx#:[id number] NS Inj 250 ML @ 15 mls/hr IV. 250 / 250 SIG ONCE TOAN Rx#:[id number] Vancomycin Inj 1,250 MG In NS 262.5 / 262.5 262.5 / 262.5 Inj 250 ML @ 250 mls/hr IV.SIG Q12H TOAN Rx#:[id number] Tazicef Inj 1,000 MG In NS Inj 200 / 200 100 / 100 100 ML @ 200 mls/hr IV.SIG Q8H [facility] Rx#:[id number] Flagyl 500 MG Inj 100 ML @ 100 100 / 100 100 / 100 100 / 100 mls/hr IV.SIG Q8H [facility] Rx#: [id number] Other 0 / 0 Rbc As-3 Leukoreduced Unit 0 / 0 [id number] Intake (Blood Product) Amt 400 / 400 Rbc As-3 Leukoreduced Unit 400 / 400 [id number] Rbc As-3 Leukoreduced Unit 0 / 0 [id number] Output: Urine Amount (Catheter) 650 / 650 1200 / 1200 Indwelling Urethral Catheter 650 / 650 1200 / 1200 Gastric Drainage 100 / 100 100 / 100 Oral 100 / 100 100 / 100 Other: Weight On Admission 59.2 kg Narrative: intubated, sedated bolt monitor in place, ICPs = 3-4 - Urinary Catheter Management Indwelling Urethral Catheter Cath placed during this visit: yes Reason for continuing: Hourly intake/output Insertion date: 10/15/18 Insertion time: 14:00 Assessment and Plan - Plan 53 y/o male mild subdural hemorrhage right frontal, left tentorium, left anterior falx, left temporal suspected skull base fracture placement of ICP monitor 10/15/[address] 10/15/18 13:26 CONCLUSION: 1. No acute fracture or subluxation. 2. Partially imaged large cavitary lesion in the left lung apex. Chest CT to follow. 3. Multilevel degenerative spondylosis of the cervical spine. Head CT 10/15/18 13:26 CONCLUSION: 1. Mild subdural hemorrhage seen at the right frontal region, left tentorium, left anterior falx, and left temporal region. The left temporal region hemorrhage could also be subarachnoid hemorrhage. 2. Suspected skull base fracture around the sphenoid sinus and at the anterior inferior aspect of the right middle cranial fossa. There appears to be air within the suprasellar cistern region. cont neuro checks in a serial fashion. Placement of ICP monitor is indicated as recommended by the [place] [employer]. Follow up CT cont critical care management SCDs and TEDs for dvt prophylaxis Protonix for GI prophylaxis EEG to assess for seizures, will start Keppra 500mg q12 hrs for prophylaxis x 7 days if EEG negative
--- NOTE | 2018-10-16 12:12 | MG ---
cc: Evaristo Coley MD, PhD TEST NUMBER: [id number] TECHNIQUE: A 17-channel EEG. DESCRIPTION: Background rhythm reveals generalized slowing in the delta frequency at 3-4 Hz. Amplitude is 20-30 microvolts. No lateralizing features are identified and no epileptiform features are identified. Some vertex sharp waves are seen, but this is not epileptiform. Photic resulted in poor driving response. INTERPRETATION: Abnormal study consistent with a moderate to severe encephalopathy. Evaristo Coley MD, PhD RIDGE/ , 12:01 PM , 12:05 PM
--- NOTE | 2018-10-16 12:21 | GIPROC ---
[facility] [address] [facility]. [facility], [address] EGD PROCEDURE REPORT EXAM DATE: 10/16/2018 PATIENT NAME: Evaristo Miller MR #: [id number] BIRTHDATE: 1965 ATTENDING: Keaton Pretty MD ORDER #: [id number] ROOF ASSEMBLER: Davide Hayden and Kathleen Adams STATUS: inpatient INDICATIONS: The patient is a 53 yr old male here for an EGD due to anemia, acute post hemorrhagic anemia, and hematemesis PROCEDURE PERFORMED: EGD, diagnostic MEDICATIONS: Per Anesthesia and None. TOPICAL ANESTHETIC: none CONSENT: The patient understands the risks and benefits of the procedure and understands that these risks include, but are not limited to: sedation, allergic reaction, infection, perforation and/or bleeding. Alternative means of evaluation and treatment include, among others: physical exam, x-rays, and/or surgical intervention. The patient elects to proceed with this endoscopic procedure. medical equipment was checked for proper function. Hand hygiene and appropriate measures for infection prevention was taken. After the risks, benefits and alternatives of the procedure were thoroughly explained, Informed consent was verified, confirmed and timeout was successfully executed by the treatment team. The patient was anesthetized with topical anesthesia and the Pentax [id number] endoscope was introduced through the mouth and advanced to the second portion of the duodenum. Retroflexed views revealed large blood clot The gastroscope was then slowly withdrawn and removed. ESOPHAGUS: There was LA Class A esophagitis noted. STOMACH: Blood clot in fundus. Removed with Giron Net.Underlying mucosa normal. DUODENUM: The duodenal mucosa appeared normal in the entire duodenum. No active bleeding or SRH. ADVERSE EVENTS: There were no complications. IMPRESSIONS: 1. There was LA Class A esophagitis noted 2. Blood clot in fundus. Removed with Giron Net.Underlying mucosa normal 3. Normal duodenal mucosa in the entire duodenum 4. No active bleeding or SRH 5. Retroflexed views revealed large blood clot RECOMMENDATIONS: Continue PPI PATIENT CONDITION: unstable DISPOSITION: Inpatient REPEAT EXAM: Return as needed for EGD Keaton Pretty MD eSigned: Keaton Pretty MD 10/16/2018 12:21 PM cc: PATIENT NAME: Evaristo Miller MR#: [id number]
--- NOTE | 2018-10-16 12:23 | P.CONURO ---
History of Present Illness Service: Consult date: 10/16/18 Requesting Physician: Rod Fuller Primary Care Provider: UNKNOWN Chief Complaint: Altered mental status History of Present Illness: 53-year-old gentleman admitted with altered mental status and found to have subdural hemorrhage and basilar skull fracture who is now admitted to the intensive care unit. Current workup included a CT scan of the abdomen and pelvis that demonstrated thickening of the urinary bladder of indeterminate etiology. A urology consult was placed regarding this finding. I reviewed the actual CT scan images and concur with the radiologist impression. The kidneys themselves appeared normal without mass lesions or hydronephrosis. I was unable to obtain any additional history from the patient due to his compromised clinical condition. [facility] - History History Provided By: Guest Relation Officer / EMT - Medical History Medical History: Medical History (Last Reviewed 10/16/18 @ 11:07 by Kim Jacques) Medical history unknown - Tobacco History Smoking Status: Unknown if ever smoked - Alcohol History How Often Do You Have a Drink Containing Alcohol: Unable to Obtain - Substance Use History Substance History: No History of Abuse - Travel History Recent Travel in the [place] Within the Last 8 Weeks: No Recent Travel Out of the Country Within the Last 8 Weeks: No - Immunization History Tetanus Immunization: Unsure Medications and Allergies Active Medications: Active Medications Albuterol (Duoneb Neb (Oj)) 1 ampul NEB Q8HR ALT NEB OJ Last Admin: 10/16/18 12:21 Dose: 1 ampul Chlorhexidine Gluconate (Chlorhexidine 2% Cloth) 3 pack TOPICAL DAILY@0400 OJ Stop: 10/21/18 03:59 Last Admin: 10/16/18 04:07 Dose: 3 pack Chlorhexidine Gluconate (Chlorhexidine 2% Cloth) 3 pack TOPICAL DAILY@0400 PRN PRN Reason: Extra cloth needed Stop: 10/21/18 03:59 Flumazenil (Romazecon Inj) 0.2 mg IV.PUSH Q1M PRN PRN Reason: OVERSEDATION Haloperidol Lactate (Haldol Inj) 1 mg IV.PUSH Q15M PRN PRN Reason: for severe agitation Propofol (Diprivan 1000 Mg/100 Ml Inj) 1,000 mg in 100 mls @ 2.4 mls/hr IV.CONT TITRATE PRN; Protocol PRN Reason: Per Protocol Last Admin: 10/16/18 08:36 Dose: 50 mcg/kg/min, 24 mls/hr Pantoprazole Sodium 80 mg/ (Sodium Chloride) 100 mls @ 10 mls/hr IV.CONT CONT [facility] Last Admin: 10/16/18 03:43 Dose: 10 mls/hr Midazolam HCl (Versed Inj) 100 mg in 100 mls @ 2 mls/hr IV.CONT TITRATE PRN; Protocol PRN Reason: See protocol Ceftazidime 1,000 mg/ Sodium (Chloride) 100 mls @ 200 mls/hr IV.SIG Q8H [facility] Last Infusion: 10/16/18 10:47 Dose: Infused Metronidazole/Sodium Chloride (Flagyl 500 Mg Inj) 100 mls @ 100 mls/hr IV.SIG Q8H [facility] Last Infusion: 10/16/18 09:32 Dose: Infused Vancomycin HCl 1,250 mg/ (Sodium Chloride) 262.5 mls @ 250 mls/hr IV.SIG Q12H [facility] Last Infusion: 10/16/18 08:17 Dose: Infused Sodium Chloride (Ns Inj) 1,000 mls @ 75 mls/hr IV.CONT .[id number] [facility] Last Admin: 10/16/18 08:37 Dose: 75 mls/hr Magnesium Sulfate 2 gm/ Sodium (Chloride) 100 mls @ 50 mls/hr IV.SIG UNSCH PRN PRN Reason: For Magnesium 1.2 - 1.6 mg/dL Potassium Chloride (Kcl 40 Meq Premix Inj) 40 meq in 100 mls @ 25 mls/hr IV.SIG Q2H PRN PRN Reason: For Potassium 2.8 - 3.2 mEq/L Potassium Chloride (Kcl 20 Meq Premix Inj) 20 meq in 100 mls @ 50 mls/hr IV.SIG Q2H PRN PRN Reason: For Potassium 3.3 - 3.5 mEq/L Last Admin: 10/16/18 11:24 Dose: 50 mls/hr Potassium Chloride (Kcl 40 Meq Premix Inj) 40 meq in 100 mls @ 25 mls/hr IV.SIG UNSCH PRN PRN Reason: For Potassium 3.3 - 3.5 mEq/L Potassium Chloride (Kcl 20 Meq Premix Inj) 20 meq in 100 mls @ 50 mls/hr IV.SIG Q2H PRN PRN Reason: For Potassium 2.8 - 3.2 mEq/L Sodium Phosphate 30 mmol/ (Sodium Chloride) 260 mls @ 42 mls/hr IV.SIG UNSCH PRN PRN Reason: For Phosphorus < 2.5 mg/dL Magnesium Sulfate 4 gm/ Sodium (Chloride) 100 mls @ 50 mls/hr IV.SIG UNSCH PRN PRN Reason: For Magnesium 0.9 - 1.1 mg/dL Potassium Phosphate 30 mmol/ (Sodium Chloride) 260 mls @ 42 mls/hr IV.SIG UNSCH PRN PRN Reason: SEE LABEL COMMENTS Levetiracetam 500 mg/ Sodium (Chloride) 105 mls @ 400 mls/hr IV.SIG Q12H OJ Last Admin: 10/16/18 11:24 Dose: 400 mls/hr Thiamine HCl 100 mg/ Sodium (Chloride) 101 mls @ 100 mls/hr IV.SIG DAILY OJ Stop: 10/18/18 10:01 Lorazepam (Ativan) 2 mg PO Q2H PRN PRN Reason: for CIWA 11-14 Lorazepam (Ativan Inj) 2 mg IV.PUSH Q2H PRN PRN Reason: for CIWA 11-14 Lorazepam (Ativan Inj) 2 mg IV.PUSH Q1H PRN PRN Reason: for CIWA 15-20 Lorazepam (Ativan Inj) 2 mg IV.PUSH Q15M PRN PRN Reason: for CIWA > 20 Lorazepam (Ativan Inj) 1 mg IV.PUSH Q4H PRN PRN Reason: for CIWA 8-10 Lorazepam (Ativan) 1 mg PO Q4H PRN PRN Reason: for CIWA 8-10 Magnesium Oxide (Mag-Ox) 800 mg PO UNSCH PRN PRN Reason: For Magnesium 1.2 - 1.6 mg/dL Miscellaneous Information ([facility] Ordered Lab Info) 0 each OTHER ONCE ONE Stop: 10/17/18 05:46 Pharmacy Profile Note (Vancomycin Consult Pharmacy) 1 each OTHER UNSCH PRN PRN Reason: Pharmacy to dose Potassium Bicarb/Potassium Chloride (K-Lyte Cl Eff) 50 meq PO UNSCH PRN PRN Reason: For Potassium 3.3 - 3.5 mEq/L Potassium Phosphate (K-Phos Original) 2,000 mg PO Q4H PRN PRN Reason: Phosphorus Less Than 2.5 mg/dL Potassium Phosphate (K-Phos Original) 2,000 mg PO UNSCH PRN PRN Reason: SEE LABEL COMMENTS Sodium Chloride (Ns Flush) 2 ml IV.FLUSH PRN PRN PRN Reason: FLUSH AFTER USING IV ACCESS Thiamine HCl (Vitamin B1) 100 mg PO DAILY OJ Allergies Allergy/AdvReac Type Severity Reaction Status Date / Time lisinopril Allergy Intermediate hallucinati Verified 10/15/18 13:39 ons amlodipine Allergy Unknown headaches Verified 10/15/18 13:38 Home Medications Medication Instructions Recorded Confirmed Type amlodipine [Norvasc] 5 mg PO DAILY 10/15/18 10/15/18 History tamsulosin [Flomax] 0.4 mg PO DAILY 10/15/18 10/15/18 History Physical Exam Vital Signs - 24 hr 10/15/18 13:21 10/15/18 13:25 10/15/18 13:26 Temperature 99.1 F 99.1 F Pulse Rate 124 H 117 H Respiratory Rate 18 18 Blood Pressure 142/64 H 153/86 H Pulse Oximetry 100 100 100 10/15/18 13:35 10/15/18 14:10 10/15/18 14:39 Temperature Pulse Rate 122 H Respiratory Rate 25 H 16 Blood Pressure 139/75 Pulse Oximetry 97 100 100 10/15/18 14:41 10/15/18 15:12 10/15/18 15:51 Temperature 101.8 F H Pulse Rate 132 H 144 H 134 H Respiratory Rate 16 16 16 Blood Pressure 157/81 H 160/83 H 160/83 H Pulse Oximetry 100 100 100 10/15/18 16:05 10/15/18 16:07 10/15/18 17:38 Temperature 101.0 F H 101.0 F H Pulse Rate 121 H 119 H Respiratory Rate 16 16 Blood Pressure 142/68 H 142/68 H Pulse Oximetry 100 100 100 10/15/18 17:40 10/15/18 17:46 10/15/18 17:47 Temperature Pulse Rate 121 H Respiratory Rate 22 Blood Pressure 150/84 H 139/85 Pulse Oximetry 100 100 100 10/15/18 17:48 10/15/18 17:50 10/15/18 17:52 Temperature Pulse Rate 122 H 122 H 122 H Respiratory Rate 27 H 24 24 Blood Pressure 112/72 113/72 99/72 L Pulse Oximetry 100 100 100 10/15/18 18:00 10/15/18 18:01 10/15/18 18:14 Temperature 101.5 F H 101.5 F H Pulse Rate 121 H 121 H 120 H Respiratory Rate 22 24 22 Blood Pressure 106/74 106/75 Pulse Oximetry 100 100 100 10/15/18 18:16 10/15/18 18:19 10/15/18 18:30 Temperature Pulse Rate 118 H 121 H Respiratory Rate 22 22 21 Blood Pressure 97/75 L Pulse Oximetry 100 100 10/15/18 18:31 10/15/18 18:46 10/15/18 19:00 Temperature 102.0 F H Pulse Rate 124 H 121 H 122 H Respiratory Rate 21 21 21 Blood Pressure 92/74 L 107/79 115/80 Pulse Oximetry 100 100 100 10/15/18 19:13 10/15/18 19:16 10/15/18 19:30 Temperature Pulse Rate 120 H 124 H 126 H Respiratory Rate 21 22 22 Blood Pressure 102/74 109/79 113/79 Pulse Oximetry 100 100 100 10/15/18 20:00 10/15/18 20:30 10/15/18 20:48 Temperature Pulse Rate 119 H 125 H Respiratory Rate 24 22 22 Blood Pressure 108/75 92/75 L Pulse Oximetry 100 100 100 10/15/18 21:00 10/15/18 21:30 10/15/18 21:32 Temperature 103.5 F H 103.3 F H Pulse Rate 117 H 115 H 114 H Respiratory Rate 21 22 22 Blood Pressure 107/77 111/84 Pulse Oximetry 100 100 10/15/18 22:00 10/15/18 22:30 10/15/18 23:00 Temperature 102.7 F H 102.2 F H 101.7 F H Pulse Rate 109 H 105 H 105 H Respiratory Rate 23 22 22 Blood Pressure 145/89 H 141/89 H 141/88 H Pulse Oximetry 100 100 100 10/15/18 23:30 10/16/18 00:00 10/16/18 00:30 Temperature 101.5 F H 101.1 F H 100.8 F H Pulse Rate 102 H 100 H 97 H Respiratory Rate 21 21 21 Blood Pressure 125/86 129/85 140/87 Pulse Oximetry 100 100 100 10/16/18 01:00 10/16/18 01:18 10/16/18 01:30 Temperature 100.4 F H 100.0 F H Pulse Rate 94 H 93 H Respiratory Rate 21 21 21 Blood Pressure 129/85 130/87 Pulse Oximetry 100 100 100 10/16/18 02:00 10/16/18 02:30 10/16/18 03:00 Temperature 99.7 F H 99.5 F 99.5 F Pulse Rate 88 89 88 Respiratory Rate 19 20 20 Blood Pressure 126/84 135/88 124/84 Pulse Oximetry 100 100 100 10/16/18 03:30 10/16/18 04:00 10/16/18 04:05 Temperature 99.5 F 99.5 F Pulse Rate 87 87 87 Respiratory Rate 20 20 20 Blood Pressure 129/86 126/84 Pulse Oximetry 100 100 100 10/16/18 04:30 10/16/18 05:00 10/16/18 05:30 Temperature 99.5 F 99.3 F 99.1 F Pulse Rate 90 87 90 Respiratory Rate 19 19 20 Blood Pressure 141/80 H 134/84 131/83 Pulse Oximetry 100 100 100 10/16/18 06:00 10/16/18 06:30 10/16/18 07:00 Temperature 99.1 F 99.0 F 99.0 F Pulse Rate 89 89 87 Respiratory Rate 20 21 21 Blood Pressure 132/82 131/82 134/76 Pulse Oximetry 100 100 100 10/16/18 07:30 10/16/18 08:00 10/16/18 08:20 Temperature 99.0 F 99.0 F Pulse Rate 88 86 Respiratory Rate 22 22 22 Blood Pressure 125/79 129/82 Pulse Oximetry 100 100 100 10/16/18 08:30 10/16/18 09:00 10/16/18 09:03 Temperature 99.1 F 99.1 F 99.1 F Pulse Rate 87 87 88 Respiratory Rate 22 22 22 Blood Pressure 117/80 120/79 Pulse Oximetry 100 100 100 10/16/18 10:00 10/16/18 10:03 10/16/18 11:00 Temperature 99.1 F 99.1 F 99.0 F Pulse Rate 89 86 84 Respiratory Rate 22 23 22 Blood Pressure 119/79 Pulse Oximetry 100 100 100 10/16/18 11:03 10/16/18 12:18 Temperature 99.0 F Pulse Rate 81 80 Respiratory Rate 22 21 Blood Pressure 125/79 Pulse Oximetry 100 100 Physical Exam: GENERAL: Intubated and sedated SKIN: No rashes, ecchymoses or lesions. Cool and dry. NECK: Trachea midline. No JVD or lymphadenopathy. GASTROINTESTINAL: Abdomen soft, non-distended GENITOURINARY: Bladder not distended, Lowe catheter in place draining clear yellow urine MUSCULOSKELETAL: Extremities without clubbing, cyanosis, or edema. NEUROLOGICAL: Sedated and on mechanical ventilator Laboratory Results - last 24 hr 10/15/18 10/15/18 10/15/18 13:30 13:30 13:30 WBC 20.6 H RBC 1.69 L Hgb 5.5 L* Hct 17.1 L* MCV 101.4 H MCH 32.5 MCHC 32.0 RDW 16.4 Plt Count 316 MPV 8.1 Prelim Diff (Auto) Slide review pending Neut % (Auto) 66.3 Lymph % (Auto) 20.9 [place] % (Auto) 11.6 H Eos % (Auto) 0.2 Baso % (Auto) 1.0 Neut # (Auto) 13.6 H Lymph # (Auto) 4.3 [place] # (Auto) 2.4 H Eos # (Auto) 0.0 Baso # (Auto) 0.2 WBC Differential Manual diff final Seg Neuts % (Manual) 73 H Band Neuts % (Manual) Lymphocytes % (Manual) 17 Monocytes % (Manual) 6 Eosinophils % (Manual) Basophils % (Manual) 2 Myelocytes % (Man) 1 H Promyelocytes % (Man) 1 H Abs Neuts (Manual) 15.5 H Differential Comment . Platelet Estimate Normal Platelet Morphology Clumped H Ovalocytes PT 11.0 INR 1.1 APTT 22.4 L Puncture Site Patient Temperature O2 Saturation ABG pH ABG pCO2 ABG pO2 ABG HCO3 ABG O2 Content ABG Base Excess ABG Methemoglobin [place] Test Hemoglobin Carboxyhemoglobin O2 Delivery Device Vent Setting Inspired O2 Critical Value Sodium 140 Potassium 3.9 Chloride 107 Carbon Dioxide 23.2 Anion Gap 10 BUN 27 H Creatinine 0.76 Estimated GFR Greater than 89 POC Glucose Random Glucose 175 H Lactic Acid Calcium 6.9 L* Calcium Adj for Albumin 8.3 L Total Bilirubin 0.2 AST 50 H ALT 18 Alkaline Phosphatase 74 Ammonia Total Creatine Kinase Troponin I Less than 0.02 L Total Protein 6.5 Albumin 2.2 L TSH 0.555 Urine Color Urine Clarity Urine pH Ur Specific [place] Urine Protein Urine Glucose (UA) Urine Ketones Urine Occult Blood Urine Nitrate Urine Bilirubin Urine Urobilinogen Ur Leukocyte Esterase Urine RBC Urine WBC Ur Squamous Epith Cells Urine Bacteria Hyaline Casts Urine Mucus Micro UA Comment Ur Microscopic Review Urine Culture Comments Nasal Screen MRSA (PCR) Urine Opiates Screen Ur Barbiturates Screen Ur Amphetamines Screen U Benzodiazepines Scrn Urine Cocaine Screen U Cannabinoids Screen Serum Alcohol Less than 3 Blood Type Antibody Screen MTS Gel Crossmatch 10/15/18 10/15/18 10/15/18 13:30 13:30 13:30 WBC RBC Hgb Hct MCV MCH MCHC RDW Plt Count MPV Prelim Diff (Auto) Neut % (Auto) Lymph % (Auto) [place] % (Auto) Eos % (Auto) Baso % (Auto) Neut # (Auto) Lymph # (Auto) [place] # (Auto) Eos # (Auto) Baso # (Auto) WBC Differential Seg Neuts % (Manual) Band Neuts % (Manual) Lymphocytes % (Manual) Monocytes % (Manual) Eosinophils % (Manual) Basophils % (Manual) Myelocytes % (Man) Promyelocytes % (Man) Abs Neuts (Manual) Differential Comment Platelet Estimate Platelet Morphology Ovalocytes PT INR APTT Puncture Site Patient Temperature O2 Saturation ABG pH ABG pCO2 ABG pO2 ABG HCO3 ABG O2 Content ABG Base Excess ABG Methemoglobin [place] Test Hemoglobin Carboxyhemoglobin O2 Delivery Device Vent Setting Inspired O2 Critical Value Sodium Potassium Chloride Carbon Dioxide Anion Gap BUN Creatinine Estimated GFR POC Glucose Random Glucose Lactic Acid 4.5 H* Calcium Calcium Adj for Albumin Total Bilirubin AST ALT Alkaline Phosphatase Ammonia 26 Total Creatine Kinase Troponin I Total Protein Albumin TSH Urine Color Urine Clarity Urine pH Ur Specific [place] Urine Protein Urine Glucose (UA) Urine Ketones Urine Occult Blood Urine Nitrate Urine Bilirubin Urine Urobilinogen Ur Leukocyte Esterase Urine RBC Urine WBC Ur Squamous Epith Cells Urine Bacteria Hyaline Casts Urine Mucus Micro UA Comment Ur Microscopic Review Urine Culture Comments Nasal Screen MRSA (PCR) Urine Opiates Screen Ur Barbiturates Screen Ur Amphetamines Screen U Benzodiazepines Scrn Urine Cocaine Screen U Cannabinoids Screen Serum Alcohol Blood Type A Positive Antibody Screen Negative MTS Gel Crossmatch 10/15/18 10/15/18 10/15/18 13:46 14:00 14:00 WBC RBC Hgb Hct MCV MCH MCHC RDW Plt Count MPV Prelim Diff (Auto) Neut % (Auto) Lymph % (Auto) [place] % (Auto) Eos % (Auto) Baso % (Auto) Neut # (Auto) Lymph # (Auto) [place] # (Auto) Eos # (Auto) Baso # (Auto) WBC Differential Seg Neuts % (Manual) Band Neuts % (Manual) Lymphocytes % (Manual) Monocytes % (Manual) Eosinophils % (Manual) Basophils % (Manual) Myelocytes % (Man) Promyelocytes % (Man) Abs Neuts (Manual) Differential Comment Platelet Estimate Platelet Morphology Ovalocytes PT INR APTT Puncture Site Patient Temperature O2 Saturation ABG pH ABG pCO2 ABG pO2 ABG HCO3 ABG O2 Content ABG Base Excess ABG Methemoglobin [place] Test Hemoglobin Carboxyhemoglobin O2 Delivery Device Vent Setting Inspired O2 Critical Value Sodium Potassium Chloride Carbon Dioxide Anion Gap BUN Creatinine Estimated GFR POC Glucose 204 H Random Glucose Lactic Acid Calcium Calcium Adj for Albumin Total Bilirubin AST ALT Alkaline Phosphatase Ammonia Total Creatine Kinase Troponin I Total Protein Albumin TSH Urine Color Yellow Urine Clarity Clear Urine pH 5.0 Ur Specific [place] 1.013 Urine Protein 30 H Urine Glucose (UA) Negative Urine Ketones Negative Urine Occult Blood Small H Urine Nitrate Negative Urine Bilirubin Negative Urine Urobilinogen Less than 2 Ur Leukocyte Esterase Moderate H Urine RBC 7 H Urine WBC 14 H Ur Squamous Epith Cells <1 Urine Bacteria Occasional H Hyaline Casts 3 Urine Mucus Few H Micro UA Comment Culture indicated Ur Microscopic Review Not Reportable Urine Culture Comments Culture indicated Nasal Screen MRSA (PCR) Urine Opiates Screen Neg Ur Barbiturates Screen Neg Ur Amphetamines Screen Pos H U Benzodiazepines Scrn Pos H Urine Cocaine Screen Neg U Cannabinoids Screen Pos H Serum Alcohol Blood Type Antibody Screen MTS Gel Crossmatch 10/15/18 10/15/18 10/15/18 14:36 16:55 18:47 WBC RBC Hgb Hct MCV MCH MCHC RDW Plt Count MPV Prelim Diff (Auto) Neut % (Auto) Lymph % (Auto) [place] % (Auto) Eos % (Auto) Baso % (Auto) Neut # (Auto) Lymph # (Auto) [place] # (Auto) Eos # (Auto) Baso # (Auto) WBC Differential Seg Neuts % (Manual) Band Neuts % (Manual) Lymphocytes % (Manual) Monocytes % (Manual) Eosinophils % (Manual) Basophils % (Manual) Myelocytes % (Man) Promyelocytes % (Man) Abs Neuts (Manual) Differential Comment Platelet Estimate Platelet Morphology Ovalocytes PT INR APTT Puncture Site Right radial Patient Temperature 98.6 O2 Saturation 98 ABG pH 7.50 H ABG pCO2 32 L ABG pO2 484 H ABG HCO3 24 ABG O2 Content 10.3 L ABG Base Excess 1.4 ABG Methemoglobin 0.5 [place] Test Present Hemoglobin 6.5 L* Carboxyhemoglobin 0.0 O2 Delivery Device Ventilator Vent Setting Prvc/ac Inspired O2 100 Critical Value Yes Sodium Potassium Chloride Carbon Dioxide Anion Gap BUN Creatinine Estimated GFR POC Glucose 147 H Random Glucose Lactic Acid Calcium Calcium Adj for Albumin Total Bilirubin AST ALT Alkaline Phosphatase Ammonia Total Creatine Kinase Troponin I Total Protein Albumin TSH Urine Color Urine Clarity Urine pH Ur Specific [place] Urine Protein Urine Glucose (UA) Urine Ketones Urine Occult Blood Urine Nitrate Urine Bilirubin Urine Urobilinogen Ur Leukocyte Esterase Urine RBC Urine WBC Ur Squamous Epith Cells Urine Bacteria Hyaline Casts Urine Mucus Micro UA Comment Ur Microscopic Review Urine Culture Comments Nasal Screen MRSA (PCR) Urine Opiates Screen Ur Barbiturates Screen Ur Amphetamines Screen U Benzodiazepines Scrn Urine Cocaine Screen U Cannabinoids Screen Serum Alcohol Blood Type Antibody Screen MTS Gel Crossmatch See Detail 10/15/18 10/15/18 10/15/18 18:59 21:39 21:39 WBC RBC Hgb 9.0 L D Hct 25.6 L MCV MCH MCHC RDW Plt Count MPV Prelim Diff (Auto) Neut % (Auto) Lymph % (Auto) [place] % (Auto) Eos % (Auto) Baso % (Auto) Neut # (Auto) Lymph # (Auto) [place] # (Auto) Eos # (Auto) Baso # (Auto) WBC Differential Seg Neuts % (Manual) Band Neuts % (Manual) Lymphocytes % (Manual) Monocytes % (Manual) Eosinophils % (Manual) Basophils % (Manual) Myelocytes % (Man) Promyelocytes % (Man) Abs Neuts (Manual) Differential Comment Platelet Estimate Platelet Morphology Ovalocytes PT INR APTT Puncture Site Patient Temperature O2 Saturation ABG pH ABG pCO2 ABG pO2 ABG HCO3 ABG O2 Content ABG Base Excess ABG Methemoglobin [place] Test Hemoglobin Carboxyhemoglobin O2 Delivery Device Vent Setting Inspired O2 Critical Value Sodium Potassium Chloride Carbon Dioxide Anion Gap BUN Creatinine Estimated GFR POC Glucose Random Glucose Lactic Acid 2.6 H Calcium Calcium Adj for Albumin Total Bilirubin AST ALT Alkaline Phosphatase Ammonia Total Creatine Kinase 140 Troponin I Less than 0.02 L Total Protein Albumin TSH Urine Color Urine Clarity Urine pH Ur Specific [place] Urine Protein Urine Glucose (UA) Urine Ketones Urine Occult Blood Urine Nitrate Urine Bilirubin Urine Urobilinogen Ur Leukocyte Esterase Urine RBC Urine WBC Ur Squamous Epith Cells Urine Bacteria Hyaline Casts Urine Mucus Micro UA Comment Ur Microscopic Review Urine Culture Comments Nasal Screen MRSA (PCR) Urine Opiates Screen Ur Barbiturates Screen Ur Amphetamines Screen U Benzodiazepines Scrn Urine Cocaine Screen U Cannabinoids Screen Serum Alcohol Blood Type Antibody Screen MTS Gel Crossmatch 10/15/18 10/15/18 10/16/18 22:45 23:33 01:53 WBC RBC Hgb Hct MCV MCH MCHC RDW Plt Count MPV Prelim Diff (Auto) Neut % (Auto) Lymph % (Auto) [place] % (Auto) Eos % (Auto) Baso % (Auto) Neut # (Auto) Lymph # (Auto) [place] # (Auto) Eos # (Auto) Baso # (Auto) WBC Differential Seg Neuts % (Manual) Band Neuts % (Manual) Lymphocytes % (Manual) Monocytes % (Manual) Eosinophils % (Manual) Basophils % (Manual) Myelocytes % (Man) Promyelocytes % (Man) Abs Neuts (Manual) Differential Comment Platelet Estimate Platelet Morphology Ovalocytes PT INR APTT Puncture Site Patient Temperature O2 Saturation ABG pH ABG pCO2 ABG pO2 ABG HCO3 ABG O2 Content ABG Base Excess ABG Methemoglobin [place] Test Hemoglobin Carboxyhemoglobin O2 Delivery Device Vent Setting Inspired O2 Critical Value Sodium 142 Potassium 3.1 L D Chloride 110 H Carbon Dioxide 22.8 Anion Gap 9 BUN 21 H Creatinine 0.63 Estimated GFR Greater than 89 POC Glucose 154 H Random Glucose 146 H Lactic Acid Calcium 7.0 L* Calcium Adj for Albumin 8.6 Total Bilirubin 0.5 AST 32 ALT 15 Alkaline Phosphatase 66 Ammonia Total Creatine Kinase 79 Troponin I Less than 0.02 L Total Protein 5.9 L D Albumin 2.0 L TSH Urine Color Urine Clarity Urine pH Ur Specific [place] Urine Protein Urine Glucose (UA) Urine Ketones Urine Occult Blood Urine Nitrate Urine Bilirubin Urine Urobilinogen Ur Leukocyte Esterase Urine RBC Urine WBC Ur Squamous Epith Cells Urine Bacteria Hyaline Casts Urine Mucus Micro UA Comment Ur Microscopic Review Urine Culture Comments Nasal Screen MRSA (PCR) Not detected Urine Opiates Screen Ur Barbiturates Screen Ur Amphetamines Screen U Benzodiazepines Scrn Urine Cocaine Screen U Cannabinoids Screen Serum Alcohol Blood Type Antibody Screen MTS Gel Crossmatch 10/16/18 10/16/18 10/16/18 01:53 01:53 05:18 WBC 20.3 H RBC 2.89 L Hgb 9.2 L 9.3 L Hct 26.3 L 26.7 L MCV 92.2 D MCH 32.0 MCHC 34.7 RDW 16.8 Plt Count 266 MPV 8.4 Prelim Diff (Auto) Slide review pending Neut % (Auto) 73.3 H Lymph % (Auto) 9.6 [place] % (Auto) 15.8 H Eos % (Auto) 0.9 Baso % (Auto) 0.4 Neut # (Auto) 14.9 H Lymph # (Auto) 1.9 [place] # (Auto) 3.2 H Eos # (Auto) 0.2 Baso # (Auto) 0.1 WBC Differential Manual diff final Seg Neuts % (Manual) 71 H Band Neuts % (Manual) 11 H Lymphocytes % (Manual) 9 Monocytes % (Manual) 8 Eosinophils % (Manual) 1 Basophils % (Manual) Myelocytes % (Man) Promyelocytes % (Man) Abs Neuts (Manual) 16.6 H Differential Comment . Platelet Estimate Normal Platelet Morphology Normal Ovalocytes 1+ H PT INR APTT Puncture Site Right radial Patient Temperature 98.6 O2 Saturation 97 ABG pH 7.47 H ABG pCO2 34 L ABG pO2 185 H ABG HCO3 24 ABG O2 Content 11.6 L ABG Base Excess 0.7 ABG Methemoglobin 1.7 [place] Test Present Hemoglobin 8.3 L Carboxyhemoglobin 1.2 O2 Delivery Device Ventilator Vent Setting Prvc/ac Inspired O2 40 Critical Value No Sodium Potassium Chloride Carbon Dioxide Anion Gap BUN Creatinine Estimated GFR POC Glucose Random Glucose Lactic Acid Calcium Calcium Adj for Albumin Total Bilirubin AST ALT Alkaline Phosphatase [place] Total Creatine Kinase Troponin I Total Protein Albumin TSH Urine Color Urine Clarity Urine pH Ur Specific [place] Urine Protein Urine Glucose (UA) Urine Ketones Urine Occult Blood Urine Nitrate Urine Bilirubin Urine Urobilinogen Ur Leukocyte Esterase Urine RBC Urine WBC Ur Squamous Epith Cells Urine Bacteria Hyaline Casts Urine Mucus Micro UA Comment Ur Microscopic Review Urine Culture Comments Nasal Screen MRSA (PCR) Urine Opiates Screen Ur Barbiturates Screen Ur Amphetamines Screen U Benzodiazepines Scrn Urine Cocaine Screen U Cannabinoids Screen Serum Alcohol Blood Type Antibody Screen MTS Gel Crossmatch 10/16/18 08:10 WBC RBC Hgb 8.1 L Hct 21.5 L MCV MCH MCHC RDW Plt Count MPV Prelim Diff (Auto) Neut % (Auto) Lymph % (Auto) [place] % (Auto) Eos % (Auto) Baso % (Auto) Neut # (Auto) Lymph # (Auto) [place] # (Auto) Eos # (Auto) Baso # (Auto) WBC Differential Seg Neuts % (Manual) Band Neuts % (Manual) Lymphocytes % (Manual) Monocytes % (Manual) Eosinophils % (Manual) Basophils % (Manual) Myelocytes % (Man) Promyelocytes % (Man) Abs Neuts (Manual) Differential Comment Platelet Estimate Platelet Morphology Ovalocytes PT INR APTT Puncture Site Patient Temperature O2 Saturation ABG pH ABG pCO2 ABG pO2 ABG HCO3 ABG O2 Content ABG Base Excess ABG Methemoglobin [place] Test Hemoglobin Carboxyhemoglobin O2 Delivery Device Vent Setting Inspired O2 Critical Value Sodium Potassium Chloride Carbon Dioxide Anion Gap BUN Creatinine Estimated GFR POC Glucose Random Glucose Lactic Acid Calcium Calcium Adj for Albumin Total Bilirubin AST ALT Alkaline Phosphatase [place] Total Creatine Kinase Troponin I Total Protein Albumin TSH Urine Color Urine Clarity Urine pH Ur Specific [place] Urine Protein Urine Glucose (UA) Urine Ketones Urine Occult Blood Urine Nitrate Urine Bilirubin Urine Urobilinogen Ur Leukocyte Esterase Urine RBC Urine WBC Ur Squamous Epith Cells Urine Bacteria Hyaline Casts Urine Mucus Micro UA Comment Ur Microscopic Review Urine Culture Comments Nasal Screen MRSA (PCR) Urine Opiates Screen Ur Barbiturates Screen Ur Amphetamines Screen U Benzodiazepines Scrn Urine Cocaine Screen U Cannabinoids Screen Serum Alcohol Blood Type Antibody Screen MTS Gel Crossmatch Microbiology 10/15/18 17:44 Gram Stain - Final Sputum - Endotracheal Sputum Culture - Preliminary Heavy growth normal respiratory munir at 24 hours 10/15/18 14:00 Urine Culture - Preliminary Clean Catch Urine No growth in 24 hours 10/15/18 18:59 Aerobic Blood Culture - Preliminary Blood - Peripheral No growth in 1 day Anaerobic Blood Culture - Preliminary No growth in 1 day 10/15/18 13:45 Aerobic Blood Culture - Preliminary Blood - Peripheral No growth in 1 day Anaerobic Blood Culture - Preliminary No growth in 1 day Result Diagrams: 10/16/18 08:10 10/16/18 01:53 Imaging: ITS Impressions Chest X-Ray 10/15/18 13:23 CONCLUSION: 1. ETT in good position. NGT in the stomach. 2. Ill-defined parenchymal and pleural opacities in the left upper lobe. Differential considerations include infection, including atypical infection, in the appropriate clinical setting. Cervical Spine CT 10/15/18 13:26 CONCLUSION: 1. No acute fracture or subluxation. 2. Partially imaged large cavitary lesion in the left lung apex. Chest CT to follow. 3. Multilevel degenerative spondylosis of the cervical spine. Head CT 10/15/18 13:26 CONCLUSION: 1. Mild subdural hemorrhage seen at the right frontal region, left tentorium, left anterior falx, and left temporal region. The left temporal region hemorrhage could also be subarachnoid hemorrhage. 2. Suspected skull base fracture around the sphenoid sinus and at the anterior inferior aspect of the right middle cranial fossa. There appears to be air within the suprasellar cistern region. . Abdomen/Pelvis CT 10/15/18 15:27 CONCLUSION: 1. Extensive wall thickening urinary bladder, neoplastic process should be excluded. 2. Diverticulosis without diverticulitis. 3. Bilateral nonobstructing renal calculi. 4. Left basilar infiltrate. Chest CT 10/15/18 15:27 CONCLUSION: 1. Prominent cavitary mass along the anterior lateral left upper lung. This could be inflammatory/infectious versus neoplastic. It is nonspecific. 2. Patchy areas of consolidation seen at the posterior left lower lung with some lesser degree of cavitary change. This most closely resembles postinflammatory change although is nonspecific. 3. Small nodules measuring less than 5 mm at the anterior left lower lung and at the right middle lobe. These are nonspecific. They can be followed. 4. Significant adenopathy is not seen. Assessment and Plan - Assessment (1) Bladder wall thickening Code(s): N32.89 - Other specified disorders of bladder Status: Acute - Plan Urologic impression: Bladder wall thickening of indeterminate etiology. Recommendations: 1. We will defer any further urologic workup until overall clinical status improved. 2. Patient to follow-up with me as an outpatient after hospital discharge for cystoscopic evaluation. 3. We will be available as needed.
[2018-10-16] MEDS: Thiamine Inj 100 MG in Sodium Chlor 0.9% Inj 100 ML IV.SIG SCH (13:57)
--- NOTE | 2018-10-16 15:17 | US ---
EXAM DATE: 10/16/2018 3:09 PM EST AGE/SEX: 53 years / Male INDICATIONS: Altered mental status. CLINICAL DATA: This is the patient's initial encounter. Patient reports that signs and symptoms have been present for 1 day and indicates a pain score of Nonresponsive. MEDICAL/SURGICAL HISTORY: Chronic obstructive pulmonary disease. Hypertension. Gastrointestin al bleed. Traumatic subdural hemorrhage/subarachnoid hemorrhage with skull base fracture. Anemia. Sepsis. Pneumonia. . Left arm surgery. COMPARISON: No prior exams available for comparison. VELOCITY PARAMETERS: ICA/CCA Ratio: Right 1.2 , Left 1.1 ICA: Right 88 cm/sec, Left 92 cm/sec CCA: Right 73 cm/sec, Left 83 cm/sec ECA: Right 84 cm/sec, Left 83 cm/sec Vertebral: Right 68 cm/sec antegrade, Left 44 cm/sec antegrade FINDINGS: RIGHT CAROTID: There is no evidence for a hemodynamically significant carotid stenosis. Minimal int imal hyperplasia is present with scattered calcific plaque. LEFT CAROTID: There is no evidence for a hemodynamically significant carotid stenosis. Minimal inti mal hyperplasia is present with scattered calcific plaque. Flow is antegrade in both vertebral arteries. There are no ancillary masses or adenopathy. CONCLUSION: Negative examination for a hemodynamically significant carotid stenosis. Gianni Raymundo MD FACR Electronically signed by: Gianni Raymundo MD 10/16/2018 3:16 PM EST
--- NOTE | 2018-10-16 16:29 | ECHRPT ---
Indication: CONCLUSIONS The left ventricular systolic function is normal with an estimated ejection fraction in the range of 55-60%. Normal left ventricular size. Wall thickness is normal. No regional wall motion abnormalities are present. BP: / HR: Rhythm: Sinus MEASUREMENTS (Male / Female) Normal Values Technical Quality:Fair 2D ECHO LV Diastolic Diameter PLAX 4.0 cm 4.2 - 5.9 / 3.9 - 5.3 cm LV Systolic Diameter PLAX 3.0 cm IVS Diastolic Thickness 0.9 cm 0.6 - 1.0 / 0.6 - 0.9 cm LVPW Diastolic Thickness 0.8 cm 0.6 - 1.0 / 0.6 - 0.9 cm LV Relative Wall Thickness 0.4 RV Internal Dim ED PLAX 3.3 cm LVOT Diameter 1.9 cm Aortic Root Diameter 3.5 cm LA Systolic Diameter LX 2.5 cm 3.0 - 4.0 / 2.7 - 3.8 cm M-MODE AV Cusp Separation MM 1.6 cm DOPPLER AV Peak Velocity 108.0 cm/s AV Peak Gradient 4.7 mmHg AV Mean Gradient 2.0 mmHg AV Velocity Time Integral 15.8 cm LVOT Peak Velocity 69.2 cm/s LVOT Peak Gradient 1.9 mmHg LVOT Velocity Time Integral 12.3 cm AV Area Cont Eq vti 2.2 cm AV Area Cont Eq pk 1.8 cm Mitral E Point Velocity 53.3 cm/s Mitral A Point Velocity 64.2 cm/s Mitral E to A Ratio 0.8 LV E' Lateral Velocity 12.7 cm/s Mitral E to LV E' Lateral Ratio 4.2 LV E' Septal Velocity 9.5 cm/s Mitral E to LV E' Septal Ratio 5.6 TR Peak Velocity 124.0 cm/s TR Peak Gradient 6.2 mmHg PV Peak Velocity 80.5 cm/s PV Peak Gradient 2.6 mmHg FINDINGS LEFT VENTRICLE The left ventricular systolic function is normal with an estimated ejection fraction in the range of 55-60%. Normal left ventricular size. Wall thickness is normal. No regional wall motion abnormalities are present. Fer Bell MD, FACC (Electronically Signed) Final Date:16 October 2018 14:41
[2018-10-16 16:49] LABS: Hematocrit 23.7 % (39.0-51.0)
--- NOTE | 2018-10-16 17:08 | P.PNCC ---
Subjective Brief History: 53-year-old male with a medical history significant for hypertension, COPD who was found down at home, EMS was called and attempted intubation in the field for altered mental status after giving Versed and etomidate however patient had his teeth clenched and they could not intubated hence patient was bagged and brought to the ER. He was intubated in the ER and placed on mechanical ventilation. Head CT revealed left-sided small subdural hemorrhage and subarachnoid hemorrhage with skull base fracture with air around the sella. His hemoglobin came back 5.5. He was also noted to have coffee-ground material suctioned out of his NG tube. No melena or rectal bleeding noted. He was never hypotensive with systolic blood pressure in the 150s though he was tachycardic on arrival. He did spike a temperature in the ER of 101. Chest x- ray showed possible cavitary lesion in the left apex. Patient was accepted for admission by critical care medicine service after ER physician as discussed with trauma surgeon as well as Dr. Garcia from neurosurgery. When I evaluated the patient in the ER he was sedated with propofol, orally intubated on mechanical ventilation. History was obtained by reviewing records and discussion with ER physician. Patient underwent full workup was found to have subdural and subarachnoid hemorrhage and a temporal skull fracture as a result of the fall In addition patient had multiple other findings including 1. Left upper lobe cavitary lesion with some solid elements which is likely a carcinoma of the left upper lobe i.e. and Pancoast's tumor but this is to be determined. Other differential diagnosis would include inflammatory process or an infection with a lung abscess, fungal infection and of course unlikely but possible, also mycobacterial infection like tuberculosis. 2. Patient apparently had some coffee-ground material in his stomach and some clots which are probably a result of his bleeding from the oral and nasal cavities and swallowing this into the stomach for there is no active bleed or pathology noted on EGD. 3. Patient has calculi in both ureters and massively thickened bladder wall of unknown significance. Based on all of the above anemia is most likely a chronic problem source of which is still unclear and patient will eventually require colonoscopy to evaluate for the same, if thickened chronically inflamed bladder could contribute to the same as well. Pulmonary lesion will need to be worked up on outpatient basis and eventually patient will need either bronchoscopy and bx or CT-guided biopsy of the same. Right now the priority is to deal with neurologic injury and patient and then will go from there Objective Vital Signs / I&O: Vital Signs 10/15/18 17:38 10/15/18 17:40 10/15/18 17:46 Temperature Pulse Rate 121 H Respiratory Rate 22 Blood Pressure 150/84 H 139/85 Pulse Oximetry 100 100 100 10/15/18 17:47 10/15/18 17:48 10/15/18 17:50 Temperature Pulse Rate 122 H 122 H Respiratory Rate 27 H 24 Blood Pressure 112/72 113/72 Pulse Oximetry 100 100 100 10/15/18 17:52 10/15/18 18:00 10/15/18 18:01 Temperature 101.5 F H Pulse Rate 122 H 121 H 121 H Respiratory Rate 24 22 24 Blood Pressure 99/72 L 106/74 Pulse Oximetry 100 100 100 10/15/18 18:14 10/15/18 18:16 10/15/18 18:19 Temperature 101.5 F H Pulse Rate 120 H 118 H Respiratory Rate 22 22 22 Blood Pressure 106/75 97/75 L Pulse Oximetry 100 100 10/15/18 18:30 10/15/18 18:31 10/15/18 18:46 Temperature Pulse Rate 121 H 124 H 121 H Respiratory Rate 21 21 21 Blood Pressure 92/74 L 107/79 Pulse Oximetry 100 100 100 10/15/18 19:00 10/15/18 19:13 10/15/18 19:16 Temperature 102.0 F H Pulse Rate 122 H 120 H 124 H Respiratory Rate 21 21 22 Blood Pressure 115/80 102/74 109/79 Pulse Oximetry 100 100 100 10/15/18 19:30 10/15/18 20:00 10/15/18 20:30 Temperature Pulse Rate 126 H 119 H 125 H Respiratory Rate 22 24 22 Blood Pressure 113/79 108/75 92/75 L Pulse Oximetry 100 100 100 10/15/18 20:48 10/15/18 21:00 10/15/18 21:30 Temperature 103.5 F H 103.3 F H Pulse Rate 117 H 115 H Respiratory Rate 22 21 22 Blood Pressure 107/77 111/84 Pulse Oximetry 100 100 100 10/15/18 21:32 10/15/18 22:00 10/15/18 22:30 Temperature 102.7 F H 102.2 F H Pulse Rate 114 H 109 H 105 H Respiratory Rate 22 23 22 Blood Pressure 145/89 H 141/89 H Pulse Oximetry 100 100 10/15/18 23:00 10/15/18 23:30 10/16/18 00:00 Temperature 101.7 F H 101.5 F H 101.1 F H Pulse Rate 105 H 102 H 100 H Respiratory Rate 22 21 21 Blood Pressure 141/88 H 125/86 129/85 Pulse Oximetry 100 100 100 10/16/18 00:30 10/16/18 01:00 10/16/18 01:18 Temperature 100.8 F H 100.4 F H Pulse Rate 97 H 94 H Respiratory Rate 21 21 21 Blood Pressure 140/87 129/85 Pulse Oximetry 100 100 100 10/16/18 01:30 10/16/18 02:00 10/16/18 02:30 Temperature 100.0 F H 99.7 F H 99.5 F Pulse Rate 93 H 88 89 Respiratory Rate 21 19 20 Blood Pressure 130/87 126/84 135/88 Pulse Oximetry 100 100 100 10/16/18 03:00 10/16/18 03:30 10/16/18 04:00 Temperature 99.5 F 99.5 F 99.5 F Pulse Rate 88 87 87 Respiratory Rate 20 20 20 Blood Pressure 124/84 129/86 126/84 Pulse Oximetry 100 100 100 10/16/18 04:05 10/16/18 04:30 10/16/18 05:00 Temperature 99.5 F 99.3 F Pulse Rate 87 90 87 Respiratory Rate 20 19 19 Blood Pressure 141/80 H 134/84 Pulse Oximetry 100 100 100 10/16/18 05:30 10/16/18 06:00 10/16/18 06:30 Temperature 99.1 F 99.1 F 99.0 F Pulse Rate 90 89 89 Respiratory Rate 20 20 21 Blood Pressure 131/83 132/82 131/82 Pulse Oximetry 100 100 100 10/16/18 07:00 10/16/18 07:30 10/16/18 08:00 Temperature 99.0 F 99.0 F 99.0 F Pulse Rate 87 88 86 Respiratory Rate 21 22 22 Blood Pressure 134/76 125/79 129/82 Pulse Oximetry 100 100 100 10/16/18 08:20 10/16/18 08:30 12/05/18 09:00 Temperature 99.1 F 99.1 F Pulse Rate 87 87 Respiratory Rate 22 22 22 Blood Pressure 117/80 Pulse Oximetry 100 100 100 10/16/18 09:03 10/16/18 10:00 10/16/18 10:03 Temperature 99.1 F 99.1 F 99.1 F Pulse Rate 88 89 86 Respiratory Rate 22 22 23 Blood Pressure 120/79 119/79 Pulse Oximetry 100 100 100 10/16/18 11:00 10/16/18 11:03 10/16/18 12:00 Temperature 99.0 F 99.0 F 98.8 F Pulse Rate 84 81 89 Respiratory Rate 22 22 22 Blood Pressure 125/79 133/79 Pulse Oximetry 100 100 100 10/16/18 12:18 10/16/18 13:00 10/16/18 13:01 Temperature 99.0 F 99.0 F Pulse Rate 80 94 H 94 H Respiratory Rate 21 24 26 H Blood Pressure 135/79 Pulse Oximetry 100 100 100 10/16/18 14:00 10/16/18 14:01 10/16/18 15:00 Temperature 99.5 F 99.5 F 99.9 F H Pulse Rate 92 H 86 92 H Respiratory Rate 20 21 22 Blood Pressure 132/77 Pulse Oximetry 100 100 100 10/16/18 15:01 10/16/18 16:00 10/16/18 16:01 Temperature 99.9 F H 100.6 F H 100.6 F H Pulse Rate 89 88 87 Respiratory Rate 21 20 21 Blood Pressure 123/75 132/79 Pulse Oximetry 100 100 100 Intake & Output 10/15/18 10/16/18 10/16/18 18:59 06:59 18:59 Intake Total 1900 / 1900 862.5 / 862.5 2154.5 / 2154.5 Output Total 750 / 750 1300 / 1300 Balance 1150 / 1150 -437.5 / -437.5 2154.5 / 2154.5 Weight 59.2 kg 59.2 kg Intake: IV 1500 / 1500 862.5 / 862.5 2154.5 / 2154.5 Protonix Inj 80 MG In NS Inj 100 / 100 86 / 86 100 ML @ 10 mls/hr IV.CONT CONT TOAN Rx#:[id number] Diprivan 1000 mg/100 ml Inj 1, 100 / 100 200 / 200 200 / 200 000 mg In 100 ml @ 5 MCG/KG/MIN 2.4 mls/hr IV.CONT TITRATE PRN Rx#:[id number] NS Inj 1,000 ML @ 75 mls/hr IV. 800 / 800 CONT .[id number] TOAN Rx#:[id number] Protonix Inj 80 MG In NS Inj 50 50 / 50 ML @ 600 mls/hr IV.SIG BOLUS ONE Rx#:[id number] KCl 20 mEq Premix Inj 20 meq In 400 / 400 100 ml @ 50 mls/hr IV.SIG Q2H PRN Rx#:[id number] NS Inj 250 ML @ 15 mls/hr IV. 250 / 250 SIG ONCE TOAN Rx#:[id number] Thiamine Inj 100 MG In NS Inj 101 / 101 100 ML @ 100 mls/hr IV.SIG DAILY TOAN Rx#:[id number] Vancomycin Inj 1,250 MG In NS 262.5 / 262.5 262.5 / 262.5 Inj 250 ML @ 250 mls/hr IV.SIG Q12H TOAN Rx#:[id number] Tazicef Inj 1,000 MG In NS Inj 200 / 200 100 / 100 100 ML @ 200 mls/hr IV.SIG Q8H TOAN Rx#:[id number] Keppra Inj 500 MG In NS Inj 100 105 / 105 ML @ 400 mls/hr IV.SIG Q12H TOAN Rx#:[id number] Flagyl 500 MG Inj 100 ML @ 100 100 / 100 100 / 100 100 / 100 mls/hr IV.SIG Q8H TOAN Rx#: [id number] Other 0 / 0 Rbc As-3 Leukoreduced Unit 0 / 0 [id number] Intake (Blood Product) Amt 400 / 400 Rbc As-3 Leukoreduced Unit 400 / 400 [id number] Rbc As-3 Leukoreduced Unit 0 / 0 [id number] Output: Urine Amount (Catheter) 650 / 650 1200 / 1200 Indwelling Urethral Catheter 650 / 650 1200 / 1200 Gastric Drainage 100 / 100 100 / 100 Oral 100 / 100 100 / 100 Other: Weight On Admission 59.2 kg Result Diagrams: 10/17/18 05:00 10/16/18 01:53 Imaging: Impressions Abdomen/Pelvis CT 10/15/18 15:27 CONCLUSION: 1. Extensive wall thickening urinary bladder, neoplastic process should be excluded. 2. Diverticulosis without diverticulitis. 3. Bilateral nonobstructing renal calculi. 4. Left basilar infiltrate. Chest CT 10/15/18 15:27 CONCLUSION: 1. Prominent cavitary mass along the anterior lateral left upper lung. This could be inflammatory/infectious versus neoplastic. It is nonspecific. 2. Patchy areas of consolidation seen at the posterior left lower lung with some lesser degree of cavitary change. This most closely resembles postinflammatory change although is nonspecific. 3. Small nodules measuring less than 5 mm at the anterior left lower lung and at the right middle lobe. These are nonspecific. They can be followed. 4. Significant adenopathy is not seen. Carotid Doppler Study 10/16/18 10:06 CONCLUSION: Negative examination for a hemodynamically significant carotid stenosis. Gianni Raymundo MD FACR Disinhibition Score: 14.00 Aggression Score: 14.00 Lability Score: 14.00 Agitated Behavior Total Score: 14 Assessment and Plan Attestation: Critical care time 42 minutes
--- NOTE | 2018-10-16 17:59 | P.PN ---
Subjective Interval history: On vent support and FIo2 40 %. Sedated an on Propofol. Stable hemodynamics. CT chest shows a Cavitary left lung mass. Physical Exam Vital signs: Vital Signs 10/15/18 17:52 10/15/18 18:00 10/15/18 18:01 Temperature 101.5 F H Pulse Rate 122 H 121 H 121 H Respiratory Rate 24 22 24 Blood Pressure 99/72 L 106/74 Pulse Oximetry 100 100 100 10/15/18 18:14 10/15/18 18:16 10/15/18 18:19 Temperature 101.5 F H Pulse Rate 120 H 118 H Respiratory Rate 22 22 22 Blood Pressure 106/75 97/75 L Pulse Oximetry 100 100 10/15/18 18:30 10/15/18 18:31 10/15/18 18:46 Temperature Pulse Rate 121 H 124 H 121 H Respiratory Rate 21 21 21 Blood Pressure 92/74 L 107/79 Pulse Oximetry 100 100 100 10/15/18 19:00 10/15/18 19:13 10/15/18 19:16 Temperature 102.0 F H Pulse Rate 122 H 120 H 124 H Respiratory Rate 21 21 22 Blood Pressure 115/80 102/74 109/79 Pulse Oximetry 100 100 100 10/15/18 19:30 10/15/18 20:00 10/15/18 20:30 Temperature Pulse Rate 126 H 119 H 125 H Respiratory Rate 22 24 22 Blood Pressure 113/79 108/75 92/75 L Pulse Oximetry 100 100 100 10/15/18 20:48 10/15/18 21:00 10/15/18 21:30 Temperature 103.5 F H 103.3 F H Pulse Rate 117 H 115 H Respiratory Rate 22 21 22 Blood Pressure 107/77 111/84 Pulse Oximetry 100 100 100 10/15/18 21:32 10/15/18 22:00 10/15/18 22:30 Temperature 102.7 F H 102.2 F H Pulse Rate 114 H 109 H 105 H Respiratory Rate 22 23 22 Blood Pressure 145/89 H 141/89 H Pulse Oximetry 100 100 10/15/18 23:00 10/15/18 23:30 10/16/18 00:00 Temperature 101.7 F H 101.5 F H 101.1 F H Pulse Rate 105 H 102 H 100 H Respiratory Rate 22 21 21 Blood Pressure 141/88 H 125/86 129/85 Pulse Oximetry 100 100 100 10/16/18 00:30 10/16/18 01:00 10/16/18 01:18 Temperature 100.8 F H 100.4 F H Pulse Rate 97 H 94 H Respiratory Rate 21 21 21 Blood Pressure 140/87 129/85 Pulse Oximetry 100 100 100 10/16/18 01:30 10/16/18 02:00 10/16/18 02:30 Temperature 100.0 F H 99.7 F H 99.5 F Pulse Rate 93 H 88 89 Respiratory Rate 21 19 20 Blood Pressure 130/87 126/84 135/88 Pulse Oximetry 100 100 100 10/16/18 03:00 10/16/18 03:30 10/16/18 04:00 Temperature 99.5 F 99.5 F 99.5 F Pulse Rate 88 87 87 Respiratory Rate 20 20 20 Blood Pressure 124/84 129/86 126/84 Pulse Oximetry 100 100 100 10/16/18 04:05 10/16/18 04:30 10/16/18 05:00 Temperature 99.5 F 99.3 F Pulse Rate 87 90 87 Respiratory Rate 20 19 19 Blood Pressure 141/80 H 134/84 Pulse Oximetry 100 100 100 10/16/18 05:30 10/16/18 06:00 10/16/18 06:30 Temperature 99.1 F 99.1 F 99.0 F Pulse Rate 90 89 89 Respiratory Rate 20 20 21 Blood Pressure 131/83 132/82 131/82 Pulse Oximetry 100 100 100 10/16/18 07:00 10/16/18 07:30 10/16/18 08:00 Temperature 99.0 F 99.0 F 99.0 F Pulse Rate 87 88 86 Respiratory Rate 21 22 22 Blood Pressure 134/76 125/79 129/82 Pulse Oximetry 100 100 100 10/16/18 08:20 10/16/18 08:30 10/16/18 09:00 Temperature 99.1 F 99.1 F Pulse Rate 87 87 Respiratory Rate 22 22 22 Blood Pressure 117/80 Pulse Oximetry 100 100 100 10/16/18 09:03 10/16/18 10:00 10/16/18 10:03 Temperature 99.1 F 99.1 F 99.1 F Pulse Rate 88 89 86 Respiratory Rate 22 22 23 Blood Pressure 120/79 119/79 Pulse Oximetry 100 100 100 10/16/18 11:00 10/16/18 11:03 10/16/18 12:00 Temperature 99.0 F 99.0 F 98.8 F Pulse Rate 84 81 89 Respiratory Rate 22 22 22 Blood Pressure 125/79 133/79 Pulse Oximetry 100 100 100 10/16/18 12:18 10/16/18 13:00 10/16/18 13:01 Temperature 99.0 F 99.0 F Pulse Rate 80 94 H 94 H Respiratory Rate 21 24 26 H Blood Pressure 135/79 Pulse Oximetry 100 100 100 10/16/18 14:00 10/16/18 14:01 10/16/18 15:00 Temperature 99.5 F 99.5 F 99.9 F H Pulse Rate 92 H 86 92 H Respiratory Rate 20 21 22 Blood Pressure 132/77 Pulse Oximetry 100 100 100 10/16/18 15:01 10/16/18 16:00 10/16/18 16:01 Temperature 99.9 F H 100.6 F H 100.6 F H Pulse Rate 89 88 87 Respiratory Rate 21 20 21 Blood Pressure 123/75 132/79 Pulse Oximetry 100 100 100 10/16/18 17:16 Temperature Pulse Rate Respiratory Rate 20 Blood Pressure Pulse Oximetry 100 Intake & Output 10/15/18 10/16/18 10/16/18 18:59 06:59 18:59 Intake Total 1900 / 1900 862.5 / 862.5 2254.5 / 2254.5 Output Total 750 / 750 1300 / 1300 Balance 1150 / 1150 -437.5 / -437.5 2254.5 / 2254.5 Weight 59.2 kg 59.2 kg Intake: IV 1500 / 1500 862.5 / 862.5 2254.5 / 2254.5 Protonix Inj 80 MG In NS Inj 100 / 100 86 / 86 100 ML @ 10 mls/hr IV.CONT CONT [facility] Rx#:[id number] Diprivan 1000 mg/100 ml Inj 1, 100 / 100 200 / 200 200 / 200 000 mg In 100 ml @ 5 MCG/KG/MIN 2.4 mls/hr IV.CONT TITRATE PRN Rx#:[id number] NS Inj 1,000 ML @ 75 mls/hr IV. 800 / 800 CONT .[id number] [facility] Rx#:[id number] Protonix Inj 80 MG In NS Inj 50 50 / 50 ML @ 600 mls/hr IV.SIG BOLUS ONE Rx#:[id number] KCl 20 mEq Premix Inj 20 meq In 400 / 400 100 ml @ 50 mls/hr IV.SIG Q2H PRN Rx#:[id number] NS Inj 250 ML @ 15 mls/hr IV. 250 / 250 SIG ONCE [facility] Rx#:[id number] Thiamine Inj 100 MG In NS Inj 101 / 101 100 ML @ 100 mls/hr IV.SIG DAILY [facility] Rx#:[id number] Vancomycin Inj 1,250 MG In NS 262.5 / 262.5 262.5 / 262.5 Inj 250 ML @ 250 mls/hr IV.SIG Q12H [facility] Rx#:[id number] Tazicef Inj 1,000 MG In NS Inj 200 / 200 100 / 100 100 ML @ 200 mls/hr IV.SIG Q8H [facility] Rx#:[id number] Keppra Inj 500 MG In NS Inj 100 105 / 105 ML @ 400 mls/hr IV.SIG Q12H [facility] Rx#:[id number] Flagyl 500 MG Inj 100 ML @ 100 100 / 100 100 / 100 200 / 200 mls/hr IV.SIG Q8H [facility] Rx#: [id number] Other 0 / 0 Rbc As-3 Leukoreduced Unit 0 / 0 [id number] Intake (Blood Product) Amt 400 / 400 Rbc As-3 Leukoreduced Unit 400 / 400 [id number] Rbc As-3 Leukoreduced Unit 0 / 0 [id number] Output: Urine Amount (Catheter) 650 / 650 1200 / 1200 Indwelling Urethral Catheter 650 / 650 1200 / 1200 Gastric Drainage 100 / 100 100 / 100 Oral 100 / 100 100 / 100 Other: Weight On Admission 59.2 kg Narrative: intubated, sedated bolt monitor in place, ICPs = 3-4 GENERAL: Mid aged W/M thinly built SKIN: Cool and dry. HEAD: Atraumatic. Normocephalic. EYES: No scleral icterus. No injection or drainage. ENT: Mild nasal bleeding and hematoma at right eyelid. Mucous membranes pink and moist. NECK: Trachea midline. No JVD. CARDIOVASCULAR: Regular rate and rhythm. RESPIRATORY: No accessory muscle use. Bilateral wheeze. Breath sounds equal bilaterally. GASTROINTESTINAL: Abdomen soft, non-tender, nondistended. Hepatic and splenic margins not palpable. MUSCULOSKELETAL: Extremities without clubbing, cyanosis, or edema. No obvious deformities. NEUROLOGICAL:sedated and on vent support. . - Urinary Catheter Management Indwelling Urethral Catheter Cath placed during this visit: yes Reason for continuing: Hourly intake/output Insertion date: 10/15/18 Insertion time: 14:00 Results - Labs CBC & Chem 7: 10/16/18 16:06 10/16/18 01:53 Laboratory Results - last 24 hr 10/15/18 10/15/18 10/15/18 14:36 18:47 18:59 WBC RBC Hgb Hct MCV MCH MCHC RDW Plt Count MPV Prelim Diff (Auto) Neut % (Auto) Lymph % (Auto) [place] % (Auto) Eos % (Auto) Baso % (Auto) Neut # (Auto) Lymph # (Auto) [place] # (Auto) Eos # (Auto) Baso # (Auto) WBC Differential Seg Neuts % (Manual) Band Neuts % (Manual) Lymphocytes % (Manual) Monocytes % (Manual) Eosinophils % (Manual) Abs Neuts (Manual) Differential Comment Platelet Estimate Platelet Morphology Ovalocytes Puncture Site Patient Temperature O2 Saturation ABG pH ABG pCO2 ABG pO2 ABG HCO3 ABG O2 Content ABG Base Excess ABG Methemoglobin [place] Test Hemoglobin Carboxyhemoglobin O2 Delivery Device Vent Setting Inspired O2 Critical Value Sodium Potassium Chloride Carbon Dioxide Anion Gap BUN Creatinine Estimated GFR POC Glucose 147 H Random Glucose Lactic Acid Calcium Calcium Adj for Albumin Total Bilirubin AST ALT Alkaline Phosphatase Total Creatine Kinase 140 Troponin I Less than 0.02 L Total Protein Albumin Nasal Screen MRSA (PCR) MTS Gel Crossmatch See Detail 10/15/18 10/15/18 10/15/18 21:39 21:39 22:45 WBC RBC Hgb 9.0 L D Hct 25.6 L MCV MCH MCHC RDW Plt Count MPV Prelim Diff (Auto) Neut % (Auto) Lymph % (Auto) [place] % (Auto) Eos % (Auto) Baso % (Auto) Neut # (Auto) Lymph # (Auto) [place] # (Auto) Eos # (Auto) Baso # (Auto) WBC Differential Seg Neuts % (Manual) Band Neuts % (Manual) Lymphocytes % (Manual) Monocytes % (Manual) Eosinophils % (Manual) Abs Neuts (Manual) Differential Comment Platelet Estimate Platelet Morphology Ovalocytes Puncture Site Patient Temperature O2 Saturation ABG pH ABG pCO2 ABG pO2 ABG HCO3 ABG O2 Content ABG Base Excess ABG Methemoglobin [place] Test Hemoglobin Carboxyhemoglobin O2 Delivery Device Vent Setting Inspired O2 Critical Value Sodium Potassium Chloride Carbon Dioxide Anion Gap BUN Creatinine Estimated GFR POC Glucose Random Glucose Lactic Acid 2.6 H Calcium Calcium Adj for Albumin Total Bilirubin AST ALT Alkaline Phosphatase Total Creatine Kinase Troponin I Total Protein Albumin Nasal Screen MRSA (PCR) Not detected MTS Gel Crossmatch 10/15/18 10/16/18 10/16/18 23:33 01:53 01:53 WBC RBC Hgb 9.2 L Hct 26.3 L MCV MCH MCHC RDW Plt Count MPV Prelim Diff (Auto) Neut % (Auto) Lymph % (Auto) [place] % (Auto) Eos % (Auto) Baso % (Auto) Neut # (Auto) Lymph # (Auto) [place] # (Auto) Eos # (Auto) Baso # (Auto) WBC Differential Seg Neuts % (Manual) Band Neuts % (Manual) Lymphocytes % (Manual) Monocytes % (Manual) Eosinophils % (Manual) Abs Neuts (Manual) Differential Comment Platelet Estimate Platelet Morphology Ovalocytes Puncture Site Patient Temperature O2 Saturation ABG pH ABG pCO2 ABG pO2 ABG HCO3 ABG O2 Content ABG Base Excess ABG Methemoglobin [place] Test Hemoglobin Carboxyhemoglobin O2 Delivery Device Vent Setting Inspired O2 Critical Value Sodium 142 Potassium 3.1 L D Chloride 110 H Carbon Dioxide 22.8 Anion Gap 9 BUN 21 H Creatinine 0.63 Estimated GFR Greater than 89 POC Glucose 154 H Random Glucose 146 H Lactic Acid Calcium 7.0 L* Calcium Adj for Albumin 8.6 Total Bilirubin 0.5 AST 32 ALT 15 Alkaline Phosphatase 66 Total Creatine Kinase 79 Troponin I Less than 0.02 L Total Protein 5.9 L D Albumin 2.0 L Nasal Screen MRSA (PCR) MTS Gel Crossmatch 10/16/18 10/16/18 10/16/18 01:53 05:18 08:10 WBC 20.3 H RBC 2.89 L Hgb 9.3 L 8.1 L Hct 26.7 L 21.5 L MCV 92.2 D MCH 32.0 MCHC 34.7 RDW 16.8 Plt Count 266 MPV 8.4 Prelim Diff (Auto) Slide review pending Neut % (Auto) 73.3 H Lymph % (Auto) 9.6 [place] % (Auto) 15.8 H Eos % (Auto) 0.9 Baso % (Auto) 0.4 Neut # (Auto) 14.9 H Lymph # (Auto) 1.9 [place] # (Auto) 3.2 H Eos # (Auto) 0.2 Baso # (Auto) 0.1 WBC Differential Manual diff final Seg Neuts % (Manual) 71 H Band Neuts % (Manual) 11 H Lymphocytes % (Manual) 9 Monocytes % (Manual) 8 Eosinophils % (Manual) 1 Abs Neuts (Manual) 16.6 H Differential Comment . Platelet Estimate Normal Platelet Morphology Normal Ovalocytes 1+ H Puncture Site Right radial Patient Temperature 98.6 O2 Saturation 97 ABG pH 7.47 H ABG pCO2 34 L ABG pO2 185 H ABG HCO3 24 ABG O2 Content 11.6 L ABG Base Excess 0.7 ABG Methemoglobin 1.7 [place] Test Present Hemoglobin 8.3 L Carboxyhemoglobin 1.2 O2 Delivery Device Ventilator Vent Setting Prvc/ac Inspired O2 40 Critical Value No Sodium Potassium Chloride Carbon Dioxide Anion Gap BUN Creatinine Estimated GFR POC Glucose Random Glucose Lactic Acid Calcium Calcium Adj for Albumin Total Bilirubin AST ALT Alkaline Phosphatase Total Creatine Kinase Troponin I Total Protein Albumin Nasal Screen MRSA (PCR) MTS Gel Crossmatch 10/16/18 16:06 WBC RBC Hgb 8.0 L Hct 23.7 L MCV MCH MCHC RDW Plt Count MPV Prelim Diff (Auto) Neut % (Auto) Lymph % (Auto) [place] % (Auto) Eos % (Auto) Baso % (Auto) Neut # (Auto) Lymph # (Auto) [place] # (Auto) Eos # (Auto) Baso # (Auto) WBC Differential Seg Neuts % (Manual) Band Neuts % (Manual) Lymphocytes % (Manual) Monocytes % (Manual) Eosinophils % (Manual) Abs Neuts (Manual) Differential Comment Platelet Estimate Platelet Morphology Ovalocytes Puncture Site Patient Temperature O2 Saturation ABG pH ABG pCO2 ABG pO2 ABG HCO3 ABG O2 Content ABG Base Excess ABG Methemoglobin [place] Test Hemoglobin Carboxyhemoglobin O2 Delivery Device Vent Setting Inspired O2 Critical Value Sodium Potassium Chloride Carbon Dioxide Anion Gap BUN Creatinine Estimated GFR POC Glucose Random Glucose Lactic Acid Calcium Calcium Adj for Albumin Total Bilirubin AST ALT Alkaline Phosphatase Total Creatine Kinase Troponin I Total Protein Albumin Nasal Screen MRSA (PCR) MTS Gel Crossmatch Microbiology 10/15/18 17:44 Sputum - Endotracheal Gram Stain - Final 10/15/18 17:44 Sputum - Endotracheal Sputum Culture - Preliminary Heavy growth normal respiratory munir at 24 hours 10/15/18 14:00 Clean Catch Urine Urine Culture - Preliminary No growth in 24 hours 10/15/18 18:59 Blood - Peripheral Aerobic Blood Culture - Preliminary No growth in 1 day 10/15/18 18:59 Blood - Peripheral Anaerobic Blood Culture - Preliminary No growth in 1 day 10/15/18 13:45 Blood - Peripheral Aerobic Blood Culture - Preliminary No growth in 1 day 10/15/18 13:45 Blood - Peripheral Anaerobic Blood Culture - Preliminary No growth in 1 day - Imaging Impressions Abdomen/Pelvis CT 10/15/18 15:27 CONCLUSION: 1. Extensive wall thickening urinary bladder, neoplastic process should be excluded. 2. Diverticulosis without diverticulitis. 3. Bilateral nonobstructing renal calculi. 4. Left basilar infiltrate. Chest CT 10/15/18 15:27 CONCLUSION: 1. Prominent cavitary mass along the anterior lateral left upper lung. This could be inflammatory/infectious versus neoplastic. It is nonspecific. 2. Patchy areas of consolidation seen at the posterior left lower lung with some lesser degree of cavitary change. This most closely resembles postinflammatory change although is nonspecific. 3. Small nodules measuring less than 5 mm at the anterior left lower lung and at the right middle lobe. These are nonspecific. They can be followed. 4. Significant adenopathy is not seen. Carotid Doppler Study 10/16/18 10:06 CONCLUSION: Negative examination for a hemodynamically significant carotid stenosis. Gianni Raymundo MD FACR Assessment and Plan - Assessment (1) Subdural hematoma, post-traumatic Code(s): S06.5X9A - Traumatic subdural hemorrhage with loss of consciousness of unspecified duration, initial encounter Status: Acute (2) Intracerebral hemorrhage Code(s): I61.9 - Nontraumatic intracerebral hemorrhage, unspecified Status: Acute (3) COPD (chronic obstructive pulmonary disease) Code(s): J44.9 - Chronic obstructive pulmonary disease, unspecified Status: Acute (4) Cavitating mass of lung Code(s): J98.4 - Other disorders of lung Status: Acute (5) Pneumonia Code(s): J18.9 - Pneumonia, unspecified organism Status: Acute (6) GI bleed Code(s): K92.2 - Gastrointestinal hemorrhage, unspecified Status: Acute (7) Anemia Code(s): D64.9 - Anemia, unspecified Status: Acute - Plan 1. Wean vent and FIO2 as tolerated. 2. Will schedule bronchoscopy and Biopsy of left Lung lesion 3. Duoneb nebs qid. 4. Continue antibiotics as ordered. 5. CBC,Coag Profile in am 6. Keep sedated with propofol
[2018-10-16] MEDS: Dextrose 5%/NaCl 0.45% Inj 1,000 ML IV.CONT SCH (19:16)
[2018-10-16 23:44] LABS: Hematocrit 22.2 % (39.0-51.0); Hemoglobin 7.5 gm/dL (13.0-17.0)
[2018-10-16 23:59] LABS: Activated Partial Thrombo Time 25.7 sec (23.4-31.7); INR 1.1 Ratio; Prothrombin Time 11.2 sec (9.8-11.6)
[2018-10-17] MEDS: Propofol 1000 mg/100 ml Inj 1,000 MG/100 ML BOTTLE IV.CONT PRN ×4 (03:13→21:17)
--- NOTE | 2018-10-17 04:31 | CT ---
EXAM DATE: 10/17/2018 4:22 AM EST AGE/SEX: 53 years / Male INDICATIONS: Follow up intracerebral hemorrhage. CLINICAL DATA: This is the patient's subsequent encounter. Patient reports that signs and symptoms h ave been present for 2 days and indicates a pain score of Nonresponsive. MEDICAL/SURGICAL HISTORY: Non-responsive. Non-responsive. RADIATION DOSE: 66.34 CTDI (mGy) COMPARISON: [facility] [place], 10/15/2018. . TECHNIQUE: CT of the head without contrast. Using automated exposure control and adjustment of the mA and/or kV according to patient size, radiation dose was kept as low as reasonably achievable to ob tain optimal diagnostic quality images. DICOM format image data is available electronically for revi ew and comparison. FINDINGS: The intracerebral hemorrhage is stable from the prior exam. Subdural blood is seen tracking along the falx near the vertex. This also seen tracking over the tentorium on the left. A left temporal subdur al component noted. Small bifrontal subdural components. No intraparenchymal hemorrhage. No new hemor rhage. Ventricles are normal in size. Brain parenchyma shows normal attenuation. Partial opacificatio n of the right mastoid air cells. Skull base fracture on the right to the sphenoid bone. A component extends thru the hard palate. CONCLUSION: 1. Stable exam as detailed above. . Electronically signed by: Daniele Figueroa MD 10/17/2018 4:30 AM EST
[2018-10-17] MEDS: Vancomycin Inj 1,250 MG in Sodium Chlor 0.9% Inj 250 ML IV.SIG SCH ×2 (05:09→18:47)
--- NOTE | 2018-10-17 05:13 | XR ---
EXAM DATE: 10/17/2018 4:53 AM EST AGE/SEX: 53 years / Male INDICATIONS: Shortness of breath. CLINICAL DATA: This is the patient's subsequent encounter. Patient reports that signs and symptoms h ave been present for 2 days and indicates a pain score of Nonresponsive. MEDICAL/SURGICAL HISTORY: . Chronic obstructive pulmonary disease. Hypertension. Gastrointestin al bleed. Traumatic subdural hemorrhage/subarachnoid hemorrhage with skull base fracture. Anemia. Sep sis. Pneumonia. None. COMPAR[place]: [facility] [place] 1[place] SINGLE AP, 10/15/2018. . FINDINGS: A single AP view of the chest demonstrates endotracheal tube tip 5 cm from the sterling. Nasogastric tu be tip courses off the inferior margin of the film. Parenchymal consolidation is seen within the left upper lobe. This is unchanged. Right lung is clear. No effusions. Heart is normal in size. Old right -sided rib fractures. CONCLUSION: Unchanged area of consolidation within the left upper lobe. Electronically signed by: Daniele Figueroa MD 10/17/2018 5:12 AM EST
[2018-10-17 05:22] LABS: ABG Base Excess 2.5 mmol/L (-2-2); ABG PCO2 34 mmHg (38-42); ABG PO2 118 mmHg (61-120)
[2018-10-17 05:33] LABS: Baso # (Auto) 0.1 th/mm3 (0.0-0.2); Baso % (Auto) 0.5 % (0.0-2.0); Eos # (Auto) 0.2 th/mm3 (0.0-0.4); Eos % (Auto) 1.2 % (0.0-4.0); Hematocrit 22.4 % (39.0-51.0); Hemoglobin 7.8 gm/dL (13.0-17.0); Lymph # (Auto) 1.9 th/mm3 (1.0-4.8); Lymph % (Auto) 10.9 % (9.0-44.0); Mean Corpuscular Hemoglobin 31.8 pg (27.0-34.0); Mean Corpuscular Volume 90.8 fL (80.0-100.0); Mono # (Auto) 2.1 th/mm3 (0.0-0.9); Mono % (Auto) 12.6 % (0.0-8.0); Neut # (Auto) 12.7 th/mm3 (1.8-7.7); Neut % (Auto) 74.8 % (16.0-70.0); Platelet Count 287 th/mm3 (150-450); Red Blood Count 2.46 mil/mm3 (4.50-5.90); Red Cell Distribution Width 16.9 % (11.6-17.2)
[2018-10-17] MEDS ORDERED: Pharmacy Ordered Lab Info OTHER ONE ×2 (05:45→17:45)
[2018-10-17] MEDS: Chlorhexidine Gluconate 2% 1 Pack (2 Cloths) TOPICAL SCH (06:23)
[2018-10-17] MEDS: Thiamine Inj 100 MG in Sodium Chlor 0.9% Inj 100 ML IV.SIG SCH (08:09)
[2018-10-17] MEDS: Pantoprazole Inj 40 MG Vial IV.PUSH SCH (08:10)
[2018-10-17] MEDS: Sod Chloride 0.9% Inj 1,000 ML IV.CONT SCH (08:10)
--- NOTE | 2018-10-17 11:46 | P.PN ---
Subjective Interval history: Remains unresponsive and on Vent support. FIO2 at 40 % Family was advised about doing a Bronchoscopy and they have decided to wait for now. he is on Diprivan and assists the vent . does not wake up to commands. CXR with a left lung cavitary lesion. Sputum was positive for AFB. Physical Exam Vital signs: Vital Signs 10/16/18 12:00 10/16/18 12:18 10/16/18 13:00 Temperature 98.8 F 99.0 F Pulse Rate 89 80 94 H Respiratory Rate 22 21 24 Blood Pressure 133/79 Pulse Oximetry 100 100 100 10/16/18 13:01 10/16/18 14:00 10/16/18 14:01 Temperature 99.0 F 99.5 F 99.5 F Pulse Rate 94 H 92 H 86 Respiratory Rate 26 H 20 21 Blood Pressure 135/79 132/77 Pulse Oximetry 100 100 100 10/16/18 15:00 10/16/18 15:01 10/16/18 16:00 Temperature 99.9 F H 99.9 F H 100.6 F H Pulse Rate 92 H 89 88 Respiratory Rate 22 21 20 Blood Pressure 123/75 Pulse Oximetry 100 100 100 10/16/18 16:01 10/16/18 17:01 10/16/18 17:16 Temperature 100.6 F H 100.6 F H Pulse Rate 87 88 Respiratory Rate 21 20 20 Blood Pressure 132/79 120/75 Pulse Oximetry 100 100 100 10/16/18 18:01 10/16/18 19:01 10/16/18 20:00 Temperature 100.4 F H 100.0 F H 100.4 F H Pulse Rate 103 H 91 H 91 H Respiratory Rate 22 19 19 Blood Pressure 108/74 126/78 120/77 Pulse Oximetry 100 100 100 10/16/18 20:01 10/16/18 21:00 10/16/18 21:01 Temperature 100.4 F H 100.0 F H 100.0 F H Pulse Rate 92 H 101 H 102 H Respiratory Rate 20 23 23 Blood Pressure 120/77 131/74 Pulse Oximetry 100 100 100 10/16/18 22:00 10/16/18 22:01 10/16/18 23:00 Temperature 100.4 F H 100.4 F H 100.4 F H Pulse Rate 101 H 101 H 95 H Respiratory Rate 22 21 20 Blood Pressure 125/76 Pulse Oximetry 100 100 100 10/16/18 23:01 10/17/18 00:00 10/17/18 00:01 Temperature 100.4 F H 100.4 F H 100.4 F H Pulse Rate 93 H 94 H 93 H Respiratory Rate 20 19 18 Blood Pressure 111/75 118/71 Pulse Oximetry 100 100 100 10/17/18 01:00 10/17/18 01:01 10/17/18 01:19 Temperature 100.2 F H 100.2 F H Pulse Rate 102 H 99 H Respiratory Rate 24 22 22 Blood Pressure 116/70 Pulse Oximetry 100 100 100 10/17/18 02:00 10/17/18 02:01 10/17/18 03:00 Temperature 100.2 F H 100.2 F H 100.0 F H Pulse Rate 98 H 98 H 90 Respiratory Rate 22 23 18 Blood Pressure 120/75 Pulse Oximetry 100 100 100 10/17/18 03:01 10/17/18 04:00 10/17/18 04:01 Temperature 100.0 F H 99.9 F H 99.9 F H Pulse Rate 90 89 89 Respiratory Rate 17 16 25 H Blood Pressure 116/76 108/73 Pulse Oximetry 100 100 100 10/17/18 04:31 10/17/18 04:49 10/17/18 05:00 Temperature 99.7 F H 99.5 F Pulse Rate 100 H 88 87 Respiratory Rate 25 H 20 21 Blood Pressure 145/87 H Pulse Oximetry 100 100 100 10/17/18 05:01 10/17/18 06:00 10/17/18 06:01 Temperature 99.5 F 99.5 F 99.7 F H Pulse Rate 88 102 H 102 H Respiratory Rate 22 20 19 Blood Pressure 132/76 129/74 Pulse Oximetry 100 100 100 10/17/18 07:50 Temperature Pulse Rate 92 H Respiratory Rate 20 Blood Pressure Pulse Oximetry 100 Intake & Output 10/16/18 10/17/18 10/17/18 18:59 06:59 18:59 Intake Total 2454.5 / 2454.5 1130.0 / 1130.0 100 / 100 Output Total 1950 / 1949 2099 / 2099 Balance 504.5 / 504.5 -970.0 / -970.0 100 / 100 Weight 58 kg Intake: IV 2354.5 / 2354.5 1130.0 / 1130.0 100 / 100 Protonix Inj 80 MG In NS Inj 86 / 86 100 ML @ 10 mls/hr IV.CONT CONT TOAN Rx#:[id number] Diprivan 1000 mg/100 ml Inj 1, 300 / 300 200 / 200 100 / 100 000 mg In 100 ml @ 5 MCG/KG/MIN 2.4 mls/hr IV.CONT TITRATE PRN Rx#:[id number] NS Inj 1,000 ML @ 75 mls/hr IV. 800 / 800 CONT .[id number] TOAN Rx#:[id number] KCl 20 mEq Premix Inj 20 meq In 400 / 400 100 ml @ 50 mls/hr IV.SIG Q2H PRN Rx#:[id number] Thiamine Inj 100 MG In NS Inj 101 / 101 100 ML @ 100 mls/hr IV.SIG DAILY TOAN Rx#:[id number] Vancomycin Inj 1,250 MG In NS 262.5 / 262.5 525.0 / 525.0 Inj 250 ML @ 250 mls/hr IV.SIG Q12H TOAN Rx#:[id number] Tazicef Inj 1,000 MG In NS Inj 100 / 100 200 / 200 100 ML @ 200 mls/hr IV.SIG Q8H TOAN Rx#:[id number] Keppra Inj 500 MG In NS Inj 100 105 / 105 105 / 105 ML @ 400 mls/hr IV.SIG Q12H TOAN Rx#:[id number] Flagyl 500 MG Inj 100 ML @ 100 200 / 200 100 / 100 mls/hr IV.SIG Q8H TOAN Rx#: [id number] Water Bolus Amount 100 / 100 Output: Urine Amount (Catheter) 1750 / 1750 1999 Indwelling Urethral Catheter 1750 / 1750 1999 Gastric Drainage 200 / 200 100 / 100 Oral 200 / 200 100 / 100 Narrative: intubated, sedated bolt monitor in place, ICPs = 4 GENERAL: Mid aged W/M thinly built SKIN: Cool and dry. HEAD: Atraumatic. Normocephalic. EYES: No scleral icterus. No injection or drainage. ENT: Mild swelling at right eyelid. Mucous membranes pink and moist. NECK: Trachea midline. No JVD. CARDIOVASCULAR: Regular rate and rhythm. RESPIRATORY: No accessory muscle use. Bilateral wheeze. Breath sounds equal bilaterally. GASTROINTESTINAL: Abdomen soft, non-tender, nondistended. Hepatic and splenic margins not palpable. MUSCULOSKELETAL: Extremities without clubbing, cyanosis, or edema. No obvious deformities. NEUROLOGICAL:sedated and on vent support. . - Urinary Catheter Management Indwelling Urethral Catheter Cath placed during this visit: yes Reason for continuing: Hourly intake/output Insertion date: 10/15/18 Insertion time: 14:00 Results - Labs CBC & Chem 7: 10/17/18 05:00 10/16/18 01:53 Laboratory Results - last 24 hr 10/16/18 10/16/18 10/16/18 16:06 23:30 23:30 WBC RBC Hgb 8.0 L 7.5 L Hct 23.7 L 22.2 L MCV MCH MCHC RDW Plt Count MPV Neut % (Auto) Lymph % (Auto) [place] % (Auto) Eos % (Auto) Baso % (Auto) Neut # (Auto) Lymph # (Auto) [place] # (Auto) Eos # (Auto) Baso # (Auto) WBC Differential Differential Comment PT 11.2 INR 1.1 APTT 25.7 Puncture Site Patient Temperature O2 Saturation ABG pH ABG pCO2 ABG pO2 ABG HCO3 ABG O2 Content ABG Base Excess ABG Methemoglobin [place] Test Hemoglobin Carboxyhemoglobin O2 Delivery Device Vent Setting Inspired O2 Critical Value 10/17/18 10/17/18 05:00 05:14 WBC 17.0 H RBC 2.46 L Hgb 7.8 L Hct 22.4 L MCV 90.8 MCH 31.8 MCHC 35.0 RDW 16.9 Plt Count 287 MPV 8.0 Neut % (Auto) 74.8 H Lymph % (Auto) 10.9 [place] % (Auto) 12.6 H Eos % (Auto) 1.2 Baso % (Auto) 0.5 Neut # (Auto) 12.7 H Lymph # (Auto) 1.9 [place] # (Auto) 2.1 H Eos # (Auto) 0.2 Baso # (Auto) 0.1 WBC Differential . Differential Comment Auto diff final PT INR APTT Puncture Site Right radial Patient Temperature 98.6 O2 Saturation 96 ABG pH 7.50 H ABG pCO2 34 L ABG pO2 118 ABG HCO3 26 ABG O2 Content 10.7 L ABG Base Excess 2.5 H ABG Methemoglobin 1.0 [place] Test Present Hemoglobin 7.8 L* Carboxyhemoglobin 0.3 O2 Delivery Device Ventilator Vent Setting Prvc/ac Inspired O2 30 Critical Value Yes Microbiology 10/15/18 18:59 Blood - Peripheral Aerobic Blood Culture - Preliminary No growth in 2 days 10/15/18 18:59 Blood - Peripheral Anaerobic Blood Culture - Preliminary No growth in 2 days 10/15/18 13:45 Blood - Peripheral Aerobic Blood Culture - Preliminary No growth in 2 days 10/15/18 13:45 Blood - Peripheral Anaerobic Blood Culture - Preliminary No growth in 2 days 10/15/18 14:00 Clean Catch Urine Urine Culture - Final No growth in 48 hours 10/15/18 17:44 Sputum - Endotracheal Gram Stain - Final 10/15/18 17:44 Sputum - Endotracheal Sputum Culture - Preliminary Heavy growth normal respiratory munir at 24 hours - Imaging Impressions Carotid Doppler Study 10/16/18 10:06 CONCLUSION: Negative examination for a hemodynamically significant carotid stenosis. Gianni Raymundo MD FACR Head CT 10/17/18 00:00 CONCLUSION: 1. Stable exam as detailed above. . Chest X-Ray 10/17/18 06:00 CONCLUSION: Unchanged area of consolidation within the left upper lobe. Assessment and Plan - Assessment (1) Subdural hematoma, post-traumatic Code(s): S06.5X9A - Traumatic subdural hemorrhage with loss of consciousness of unspecified duration, initial encounter Status: Acute (2) Intracerebral hemorrhage Code(s): I61.9 - Nontraumatic intracerebral hemorrhage, unspecified Status: Acute (3) COPD (chronic obstructive pulmonary disease) Code(s): J44.9 - Chronic obstructive pulmonary disease, unspecified Status: Acute (4) Cavitating mass of lung Code(s): J98.4 - Other disorders of lung Status: Acute (5) Pneumonia Code(s): J18.9 - Pneumonia, unspecified organism Status: Acute (6) GI bleed Code(s): K92.2 - Gastrointestinal hemorrhage, unspecified Status: Acute (7) Anemia Code(s): D64.9 - Anemia, unspecified Status: Acute - Plan 1. Wean vent rates and FIO2 as tolerated. 2. Will schedule bronchoscopy if family is agreeable. 3. Duoneb nebs qid. 4. Continue antibiotics as ordered. 5. CBC,BMP Coag Profile in am 6. Keep sedated with propofol and wean in am. 7. NG tube with feeds at 40 CC 8. Isolation and ID consult _start Anti Tb Meds.
--- NOTE | 2018-10-17 13:11 | P.PNNS ---
Subjective Interval history: intubated, sedated on propofol. ICPs stable overnight. Physical Exam Vital signs: Vital Signs 10/16/18 14:00 10/16/18 14:01 10/16/18 15:00 Temperature 99.5 F 99.5 F 99.9 F H Pulse Rate 92 H 86 92 H Respiratory Rate 20 21 22 Blood Pressure 132/77 Pulse Oximetry 100 100 100 10/16/18 15:01 10/16/18 16:00 10/16/18 16:01 Temperature 99.9 F H 100.6 F H 100.6 F H Pulse Rate 89 88 87 Respiratory Rate 21 20 21 Blood Pressure 123/75 132/79 Pulse Oximetry 100 100 100 10/16/18 17:01 10/16/18 17:16 10/16/18 18:01 Temperature 100.6 F H 100.4 F H Pulse Rate 88 103 H Respiratory Rate 20 20 22 Blood Pressure 120/75 108/74 Pulse Oximetry 100 100 100 10/16/18 19:01 10/16/18 20:00 10/16/18 20:01 Temperature 100.0 F H 100.4 F H 100.4 F H Pulse Rate 91 H 91 H 92 H Respiratory Rate 19 19 20 Blood Pressure 126/78 120/77 120/77 Pulse Oximetry 100 100 100 10/16/18 21:00 10/16/18 21:01 10/16/18 22:00 Temperature 100.0 F H 100.0 F H 100.4 F H Pulse Rate 101 H 102 H 101 H Respiratory Rate 23 23 22 Blood Pressure 131/74 Pulse Oximetry 100 100 100 10/16/18 22:01 10/16/18 23:00 10/16/18 23:01 Temperature 100.4 F H 100.4 F H 100.4 F H Pulse Rate 101 H 95 H 93 H Respiratory Rate 21 20 20 Blood Pressure 125/76 111/75 Pulse Oximetry 100 100 100 10/17/18 00:00 10/17/18 00:01 10/17/18 01:00 Temperature 100.4 F H 100.4 F H 100.2 F H Pulse Rate 94 H 93 H 102 H Respiratory Rate 19 18 24 Blood Pressure 118/71 Pulse Oximetry 100 100 100 10/17/18 01:01 10/17/18 01:19 10/17/18 02:00 Temperature 100.2 F H 100.2 F H Pulse Rate 99 H 98 H Respiratory Rate 22 22 22 Blood Pressure 116/70 Pulse Oximetry 100 100 100 10/17/18 02:01 10/17/18 03:00 10/17/18 03:01 Temperature 100.2 F H 100.0 F H 100.0 F H Pulse Rate 98 H 90 90 Respiratory Rate 23 18 17 Blood Pressure 120/75 116/76 Pulse Oximetry 100 100 100 10/17/18 04:00 10/17/18 04:01 10/17/18 04:31 Temperature 99.9 F H 99.9 F H 99.7 F H Pulse Rate 89 89 100 H Respiratory Rate 16 25 H 25 H Blood Pressure 108/73 145/87 H Pulse Oximetry 100 100 100 10/17/18 04:49 10/17/18 05:00 10/17/18 05:01 Temperature 99.5 F 99.5 F Pulse Rate 88 87 88 Respiratory Rate 20 21 22 Blood Pressure 132/76 Pulse Oximetry 100 100 100 10/17/18 06:00 10/17/18 06:01 10/17/18 07:50 Temperature 99.5 F 99.7 F H Pulse Rate 102 H 102 H 92 H Respiratory Rate 20 19 20 Blood Pressure 129/74 Pulse Oximetry 100 100 100 10/17/18 12:08 Temperature Pulse Rate Respiratory Rate 23 Blood Pressure Pulse Oximetry 100 Intake & Output 10/16/18 10/17/18 10/17/18 18:59 06:59 18:59 Intake Total 2454.5 / 2454.5 1130.0 / 1130.0 100 / 100 Output Total 1950 / 1950 2099 / 2099 Balance 504.5 / 504.5 -970.0 / -970.0 100 / 100 Weight 58 kg Intake: IV 2354.5 / 2354.5 1130.0 / 1130.0 100 / 100 Protonix Inj 80 MG In NS Inj 86 / 86 100 ML @ 10 mls/hr IV.CONT CONT TOAN Rx#:[id number] Diprivan 1000 mg/100 ml Inj 1, 300 / 300 200 / 200 100 / 100 000 mg In 100 ml @ 5 MCG/KG/MIN 2.4 mls/hr IV.CONT TITRATE PRN Rx#:[id number] NS Inj 1,000 ML @ 75 mls/hr IV. 800 / 800 CONT .[id number] TOAN Rx#:[id number] KCl 20 mEq Premix Inj 20 meq In 400 / 400 100 ml @ 50 mls/hr IV.SIG Q2H PRN Rx#:[id number] Thiamine Inj 100 MG In NS Inj 101 / 101 100 ML @ 100 mls/hr IV.SIG DAILY TOAN Rx#:[id number] Vancomycin Inj 1,250 MG In NS 262.5 / 262.5 525.0 / 525.0 Inj 250 ML @ 250 mls/hr IV.SIG Q12H TOAN Rx#:[id number] Tazicef Inj 1,000 MG In NS Inj 100 / 100 200 / 200 100 ML @ 200 mls/hr IV.SIG Q8H TOAN Rx#:[id number] Keppra Inj 500 MG In NS Inj 100 105 / 105 105 / 105 ML @ 400 mls/hr IV.SIG Q12H TOAN Rx#:[id number] Flagyl 500 MG Inj 100 ML @ 100 200 / 200 100 / 100 mls/hr IV.SIG Q8H TOAN Rx#: [id number] Water Bolus Amount 100 / 100 Output: Urine Amount (Catheter) 1750 / 1750 1999 Indwelling Urethral Catheter 1750 / 1750 1999 Gastric Drainage 200 / 200 100 / 100 Oral 200 / 200 100 / 100 Narrative: intubated, sedated bolt monitor in place, ICPs = 3 right eye periorbital ecchymoses pupils equal, left downward gaze, right lateral dysconjugate gaze slight withdrawal to stimuli in both feet - Urinary Catheter Management Indwelling Urethral Catheter Cath placed during this visit: yes Reason for continuing: Hourly intake/output Insertion date: 10/15/18 Insertion time: 14:00 Assessment and Plan - Plan 53 y/o male mild subdural hemorrhage right frontal, left tentorium, left anterior falx, left temporal, stable f/u CT Brain 10/17/18 suspected skull base fracture placement of ICP monitor 10/15/18 EEG 10/16/18 no evidence of seizures, moderate to severe encephalopathy Cervical Spine CT 10/15/18 13:26 CONCLUSION: 1. No acute fracture or subluxation. 2. Partially imaged large cavitary lesion in the left lung apex. Chest CT to follow. 3. Multilevel degenerative spondylosis of the cervical spine. Head CT 10/15/18 13:26 CONCLUSION: 1. Mild subdural hemorrhage seen at the right frontal region, left tentorium, left anterior falx, and left temporal region. The left temporal region hemorrhage could also be subarachnoid hemorrhage. 2. Suspected skull base fracture around the sphenoid sinus and at the anterior inferior aspect of the right middle cranial fossa. There appears to be air within the suprasellar cistern region. cont neuro checks in a serial fashion f/u CT Brain today reviewed, stable cont critical care management SCDs and TEDs for dvt prophylaxis Protonix for GI prophylaxis EEG to assess for seizures, Keppra 500mg q12 hrs for prophylaxis x 7 days
--- NOTE | 2018-10-17 14:12 | P.PNID ---
Subjective Remarks: ID Julio Cesar for Chart reviewed. is a 53-year-old white male, who was brought to the emergency department in an unresponsive state. The patient was noted to have a skull fracture and a subdural hemorrhage at the right frontal region. He was intubated. He was taken to surgery, and underwent bur hole with evacuation of subarachnoid and subdural hemorrhage. The patient is unresponsive on the ventilator. Information is obtained from the medical record. No history is available at this time. The patient had elevated temperature of 102 on admission. Temperatures today have decreased, and are in normal range; however , it was elevated most of yesterday evening. White blood cell count is elevated at 20.3. Chest x-ray showed ill-defined parenchymal and pleural opacity in the left upper lobe. CT scan of the chest shows a prominent cavitary mass along the left anterolateral upper lung, and also patchy areas of consolidation at the posterior left lower lobe with some lesser degree of cavitary change. Small nodules measuring less than 5 mm were seen at the anterior left lower lobe, and at the right middle lobe. Sputum culture is pending. Sputum AFB is pending. Blood culture is pending. Urine culture is pending. Urinalysis revealed 14 white cells and moderate leukocyte esterase. The patient is currently unresponsive on the ventilator. ID following for lung cavity concern for abscess vs TB or atypical mycobacteria. dw POA Past history of multiple incarcerations. ? Positive PPD. Antibiotics: Ceftaz IV Vanco IV Flagyl IV Lines: Lines ok Past Medical History: reviewed Allergies/Adverse Reactions: Allergies lisinopril Allergy (Intermediate, Verified 10/15/18 13:39) hallucinations amlodipine Allergy (Unknown, Verified 10/15/18 13:38) headaches Objective Vital Signs 10/16/18 15:00 10/16/18 15:01 10/16/18 16:00 Temperature 99.9 F H 99.9 F H 100.6 F H Pulse Rate 92 H 89 88 Respiratory Rate 22 21 20 Blood Pressure 123/75 Pulse Oximetry 100 100 100 10/16/18 16:01 10/16/18 17:01 10/16/18 17:16 Temperature 100.6 F H 100.6 F H Pulse Rate 87 88 Respiratory Rate 21 20 20 Blood Pressure 132/79 120/75 Pulse Oximetry 100 100 100 10/16/18 18:01 10/16/18 19:01 10/16/18 20:00 Temperature 100.4 F H 100.0 F H 100.4 F H Pulse Rate 103 H 91 H 91 H Respiratory Rate 22 19 19 Blood Pressure 108/74 126/78 120/77 Pulse Oximetry 100 100 100 10/16/18 20:01 10/16/18 21:00 10/16/18 21:01 Temperature 100.4 F H 100.0 F H 100.0 F H Pulse Rate 92 H 101 H 102 H Respiratory Rate 20 23 23 Blood Pressure 120/77 131/74 Pulse Oximetry 100 100 100 10/16/18 22:00 10/16/18 22:01 10/16/18 23:00 Temperature 100.4 F H 100.4 F H 100.4 F H Pulse Rate 101 H 101 H 95 H Respiratory Rate 22 21 20 Blood Pressure 125/76 Pulse Oximetry 100 100 100 10/16/18 23:01 10/17/18 00:00 10/17/18 00:01 Temperature 100.4 F H 100.4 F H 100.4 F H Pulse Rate 93 H 94 H 93 H Respiratory Rate 20 19 18 Blood Pressure 111/75 118/71 Pulse Oximetry 100 100 100 10/17/18 01:00 10/17/18 01:01 10/17/18 01:19 Temperature 100.2 F H 100.2 F H Pulse Rate 102 H 99 H Respiratory Rate 24 22 22 Blood Pressure 116/70 Pulse Oximetry 100 100 100 10/17/18 02:00 10/17/18 02:01 10/17/18 03:00 Temperature 100.2 F H 100.2 F H 100.0 F H Pulse Rate 98 H 98 H 90 Respiratory Rate 22 23 18 Blood Pressure 120/75 Pulse Oximetry 100 100 100 10/17/18 03:01 10/17/18 04:00 10/17/18 04:01 Temperature 100.0 F H 99.9 F H 99.9 F H Pulse Rate 90 89 89 Respiratory Rate 17 16 25 H Blood Pressure 116/76 108/73 Pulse Oximetry 100 100 100 10/17/18 04:31 10/17/18 04:49 10/17/18 05:00 Temperature 99.7 F H 99.5 F Pulse Rate 100 H 88 87 Respiratory Rate 25 H 20 21 Blood Pressure 145/87 H Pulse Oximetry 100 100 100 10/17/18 05:01 10/17/18 06:00 10/17/18 06:01 Temperature 99.5 F 99.5 F 99.7 F H Pulse Rate 88 102 H 102 H Respiratory Rate 22 20 19 Blood Pressure 132/76 129/74 Pulse Oximetry 100 100 100 10/17/18 07:50 10/17/18 12:08 Temperature Pulse Rate 92 H Respiratory Rate 20 23 Blood Pressure Pulse Oximetry 100 100 Intake & Output 10/16/18 10/17/18 10/17/18 18:59 06:59 18:59 Intake Total 2454.5 / 2454.5 1130.0 / 1130.0 100 / 100 Output Total 1950 / 1950 2099 / 2099 Balance 504.5 / 504.5 -970.0 / -970.0 100 / 100 Weight 58 kg Intake: IV 2354.5 / 2354.5 1130.0 / 1130.0 100 / 100 Protonix Inj 80 MG In NS Inj 86 / 86 100 ML @ 10 mls/hr IV.CONT CONT [facility] Rx#:[id number] Diprivan 1000 mg/100 ml Inj 1, 300 / 300 200 / 200 100 / 100 000 mg In 100 ml @ 5 MCG/KG/MIN 2.4 mls/hr IV.CONT TITRATE PRN Rx#:[id number] NS Inj 1,000 ML @ 75 mls/hr IV. 800 / 800 CONT .[id number] [facility] Rx#:[id number] KCl 20 mEq Premix Inj 20 meq In 400 / 400 100 ml @ 50 mls/hr IV.SIG Q2H PRN Rx#:[id number] Thiamine Inj 100 MG In NS Inj 101 / 101 100 ML @ 100 mls/hr IV.SIG DAILY [facility] Rx#:[id number] Vancomycin Inj 1,250 MG In NS 262.5 / 262.5 525.0 / 525.0 Inj 250 ML @ 250 mls/hr IV.SIG Q12H [facility] Rx#:[id number] Tazicef Inj 1,000 MG In NS Inj 100 / 100 200 / 200 100 ML @ 200 mls/hr IV.SIG Q8H [facility] Rx#:[id number] Keppra Inj 500 MG In NS Inj 100 105 / 105 105 / 105 ML @ 400 mls/hr IV.SIG Q12H [facility] Rx#:[id number] Flagyl 500 MG Inj 100 ML @ 100 200 / 200 100 / 100 mls/hr IV.SIG Q8H [facility] Rx#: [id number] Water Bolus Amount 100 / 100 Output: Urine Amount (Catheter) 1750 / [id number] Indwelling Urethral Catheter 175 / [id number] Gastric Drainage 200 / 200 100 / 100 Oral 200 / 200 100 / 100 10/15/18 17:44 Sputum - Endotracheal Acid Fast Bacilli Smear - Final Acid Fast Bacilli Seen 10/15/18 17:44 Sputum - Endotracheal Mycobacterial Culture - Preliminary 10/15/18 17:44 Sputum - Endotracheal Gram Stain - Final 10/15/18 17:44 Sputum - Endotracheal Sputum Culture - Preliminary Heavy growth normal respiratory munir 10/15/18 18:59 Blood - Peripheral Aerobic Blood Culture - Preliminary No growth in 2 days 10/15/18 18:59 Blood - Peripheral Anaerobic Blood Culture - Preliminary No growth in 2 days 10/15/18 13:45 Blood - Peripheral Aerobic Blood Culture - Preliminary No growth in 2 days 10/15/18 13:45 Blood - Peripheral Anaerobic Blood Culture - Preliminary No growth in 2 days 10/15/18 14:00 Clean Catch Urine Urine Culture - Final No growth in 48 hours Lab - Hematology Results 10/15/18 10/15/18 10/16/18 13:30 21:39 01:53 WBC RBC Hgb 9.0 L D 9.2 L Hct 25.6 L 26.3 L MCV MCH MCHC RDW Plt Count MPV Prelim Diff (Auto) Neut % (Auto) Lymph % (Auto) White % (Auto) Eos % (Auto) Baso % (Auto) Neut # (Auto) Lymph # (Auto) White # (Auto) Eos # (Auto) Baso # (Auto) WBC Differential Manual diff final Seg Neuts % (Manual) 73 H Band Neuts % (Manual) Lymphocytes % (Manual) 17 Monocytes % (Manual) 6 Eosinophils % (Manual) Basophils % (Manual) 2 Myelocytes % (Man) 1 H Promyelocytes % (Man) 1 H Abs Neuts (Manual) 15.5 H Differential Comment Platelet Estimate Normal Platelet Morphology Clumped H Ovalocytes 10/16/18 10/16/18 10/16/18 01:53 08:10 16:06 WBC 20.3 H RBC 2.89 L Hgb 9.3 L 8.1 L 8.0 L Hct 26.7 L 21.5 L 23.7 L MCV 92.2 D MCH 32.0 MCHC 34.7 RDW 16.8 Plt Count 266 MPV 8.4 Prelim Diff (Auto) Slide review pending Neut % (Auto) 73.3 H Lymph % (Auto) 9.6 White % (Auto) 15.8 H Eos % (Auto) 0.9 Baso % (Auto) 0.4 Neut # (Auto) 14.9 H Lymph # (Auto) 1.9 White # (Auto) 3.2 H Eos # (Auto) 0.2 Baso # (Auto) 0.1 WBC Differential Manual diff final Seg Neuts % (Manual) 71 H Band Neuts % (Manual) 11 H Lymphocytes % (Manual) 9 Monocytes % (Manual) 8 Eosinophils % (Manual) 1 Basophils % (Manual) Myelocytes % (Man) Promyelocytes % (Man) Abs Neuts (Manual) 16.6 H Differential Comment . Platelet Estimate Normal Platelet Morphology Normal Ovalocytes 1+ H 10/16/18 10/17/18 23:30 05:00 WBC 17.0 H RBC 2.46 L Hgb 7.5 L 7.8 L Hct 22.2 L 22.4 L MCV 90.8 MCH 31.8 MCHC 35.0 RDW 16.9 Plt Count 287 MPV 8.0 Prelim Diff (Auto) Neut % (Auto) 74.8 H Lymph % (Auto) 10.9 White % (Auto) 12.6 H Eos % (Auto) 1.2 Baso % (Auto) 0.5 Neut # (Auto) 12.7 H Lymph # (Auto) 1.9 White # (Auto) 2.1 H Eos # (Auto) 0.2 Baso # (Auto) 0.1 WBC Differential . Seg Neuts % (Manual) Band Neuts % (Manual) Lymphocytes % (Manual) Monocytes % (Manual) Eosinophils % (Manual) Basophils % (Manual) Myelocytes % (Man) Promyelocytes % (Man) Abs Neuts (Manual) Differential Comment Auto diff final Platelet Estimate Platelet Morphology Ovalocytes Lab - Chemistry Results 10/15/18 10/15/18 10/15/18 13:30 13:30 13:30 Sodium 140 Potassium 3.9 Chloride 107 Carbon Dioxide 23.2 Anion Gap 10 BUN 27 H Creatinine 0.76 Estimated GFR Greater than 89 POC Glucose Random Glucose 175 H Lactic Acid 4.5 H* Calcium 6.9 L* Calcium Adj for Albumin 8.3 L Total Bilirubin 0.2 AST 50 H ALT 18 Alkaline Phosphatase 74 Ammonia 26 Total Creatine Kinase Troponin I Less than 0.02 L Total Protein 6.5 Albumin 2.2 L TSH 0.555 10/15/18 10/15/18 10/15/18 13:46 18:47 18:59 Sodium Potassium Chloride Carbon Dioxide Anion Gap BUN Creatinine Estimated GFR POC Glucose 204 H 147 H Random Glucose Lactic Acid Calcium Calcium Adj for Albumin Total Bilirubin AST ALT Alkaline Phosphatase Ammonia Total Creatine Kinase 140 Troponin I Less than 0.02 L Total Protein Albumin TSH 10/15/18 10/15/18 10/16/18 21:39 23:33 01:53 Sodium 142 Potassium 3.1 L D Chloride 110 H Carbon Dioxide 22.8 Anion Gap 9 BUN 21 H Creatinine 0.63 Estimated GFR Greater than 89 POC Glucose 154 H Random Glucose 146 H Lactic Acid 2.6 H Calcium 7.0 L* Calcium Adj for Albumin 8.6 Total Bilirubin 0.5 AST 32 ALT 15 Alkaline Phosphatase 66 Ammonia Total Creatine Kinase 79 Troponin I Less than 0.02 L Total Protein 5.9 L D Albumin 2.0 L TSH Imaging: ITS Impressions Cervical Spine CT 10/15/18 13:26 CONCLUSION: 1. No acute fracture or subluxation. 2. Partially imaged large cavitary lesion in the left lung apex. Chest CT to follow. 3. Multilevel degenerative spondylosis of the cervical spine. Abdomen/Pelvis CT 10/15/18 15:27 CONCLUSION: 1. Extensive wall thickening urinary bladder, neoplastic process should be excluded. 2. Diverticulosis without diverticulitis. 3. Bilateral nonobstructing renal calculi. 4. Left basilar infiltrate. Chest CT 10/15/18 15:27 CONCLUSION: 1. Prominent cavitary mass along the anterior lateral left upper lung. This could be inflammatory/infectious versus neoplastic. It is nonspecific. 2. Patchy areas of consolidation seen at the posterior left lower lung with some lesser degree of cavitary change. This most closely resembles postinflammatory change although is nonspecific. 3. Small nodules measuring less than 5 mm at the anterior left lower lung and at the right middle lobe. These are nonspecific. They can be followed. 4. Significant adenopathy is not seen. Carotid Doppler Study 10/16/18 10:06 CONCLUSION: Negative examination for a hemodynamically significant carotid stenosis. Gianni Raymundo MD FACR Head CT 10/17/18 00:00 CONCLUSION: 1. Stable exam as detailed above. . Chest X-Ray 10/17/18 06:00 CONCLUSION: Unchanged area of consolidation within the left upper lobe. Physical Exam: GENERAL: This is a thin, white male, who appears poorly nourished. He is unresponsive on the ventilator. HEENT: The head has a surgical bolt exiting the frontal aspect. There is ecchymosis at the right eye. Unable to assess extraocular movements. The oropharynx is intubated. NECK: No swelling. No adenopathy. LUNGS: Markedly diminished breath sounds with slight rhonchi. HEART: Normal S1 and S2. No murmurs heard. ABDOMEN: Bowel sounds present, but diminished. Soft, unable to appreciate tenderness. RECTAL: Not performed. GENITOURINARY: Genitalia appears normal. EXTREMITIES: No clubbing, cyanosis or edema. SKIN: No diffuse rash. NEUROLOGIC: Unable to assess. PSYCHIATRIC: Unable to assess. Assessment and Plan - Plan Positive AFB in sputum with lung cavity: DDx: Pulm TB vs Atypical mycobacteria with secondary bacterial infection of cavity. Encephalopathy Traumatic subdural hemorrhage/subarachnoid hemorrhage with skull base fracture Upper GI bleed Anemia-most likely acute on chronic blood loss related Sepsis Pneumonia Left upper lobe cavitary lesion-mass versus infectious versus other inflammatory process COPD Hypertension History of alcohol abuse Recs Continue Ceftazidime IV Continue Vanco IV for now. If no MRSA in sputum or blood will likely stop Vanco IV. Continue Flagyl IV for now. Above regimen covers Skull base fracture prophylaxis and also secondary bacterial infection of lung cavity. follow cultures follow clinical course. ivette steele RN Ivette POA. ivette Infection Control and Micro lab: MT[facility] PCR sent.
--- NOTE | 2018-10-17 14:22 | P.PNCC ---
Subjective Brief History: 53-year-old male with a medical history significant for hypertension, COPD who was found down at home, EMS was called and attempted intubation in the field for altered mental status after giving Versed and etomidate however patient had his teeth clenched and they could not intubated hence patient was bagged and brought to the ER. He was intubated in the ER and placed on mechanical ventilation. Head CT revealed left-sided small subdural hemorrhage and subarachnoid hemorrhage with skull base fracture with air around the sella. His hemoglobin came back 5.5. He was also noted to have coffee-ground material suctioned out of his NG tube. No melena or rectal bleeding noted. He was never hypotensive with systolic blood pressure in the 150s though he was tachycardic on arrival. He did spike a temperature in the ER of 101. Chest x- ray showed possible cavitary lesion in the left apex. Patient was accepted for admission by critical care medicine service after ER physician as discussed with trauma surgeon as well as Dr. Garcia from neurosurgery. When I evaluated the patient in the ER he was sedated with propofol, orally intubated on mechanical ventilation. History was obtained by reviewing records and discussion with ER physician. Patient underwent full workup was found to have subdural and subarachnoid hemorrhage and a temporal skull fracture as a result of the fall In addition patient had multiple other findings including 1. Left upper lobe cavitary lesion with some solid elements which is likely a carcinoma of the left upper lobe i.e. and Pancoast's tumor but this is to be determined. Other differential diagnosis would include inflammatory process or an infection with a lung abscess, fungal infection and of course unlikely but possible, also mycobacterial infection like tuberculosis. 2. Patient apparently had some coffee-ground material in his stomach and some clots which are probably a result of his bleeding from the oral and nasal cavities and swallowing this into the stomach for there is no active bleed or pathology noted on EGD. 3. Patient has calculi in both ureters and massively thickened bladder wall of unknown significance. Based on all of the above anemia is most likely a chronic problem source of which is still unclear and patient will eventually require colonoscopy to evaluate for the same, if thickened chronically inflamed bladder could contribute to the same as well. Pulmonary lesion will need to be worked up on outpatient basis and eventually patient will need either bronchoscopy and bx or CT-guided biopsy of the same. Right now the priority is to deal with neurologic injury and patient and then will go from there 24 Hour Review/Hospital Course: 10/17/2018 Patient does not have any issues at this point that would require surgical critical care to follow in face of expertise is receiving for medical intensivists, neurosurgery and infectious disease specialists Please reconsult if any help can be rendered Objective Vital Signs / I&O: Vital Signs 10/16/18 15:00 10/16/18 15:01 10/16/18 16:00 Temperature 99.9 F H 99.9 F H 100.6 F H Pulse Rate 92 H 89 88 Respiratory Rate 22 21 20 Blood Pressure 123/75 Pulse Oximetry 100 100 100 10/16/18 16:01 10/16/18 17:01 10/16/18 17:16 Temperature 100.6 F H 100.6 F H Pulse Rate 87 88 Respiratory Rate 21 20 20 Blood Pressure 132/79 120/75 Pulse Oximetry 100 100 100 10/16/18 18:01 10/16/18 19:01 10/16/18 20:00 Temperature 100.4 F H 100.0 F H 100.4 F H Pulse Rate 103 H 91 H 91 H Respiratory Rate 22 19 19 Blood Pressure 108/74 126/78 120/77 Pulse Oximetry 100 100 100 10/16/18 20:01 10/16/18 21:00 10/16/18 21:01 Temperature 100.4 F H 100.0 F H 100.0 F H Pulse Rate 92 H 101 H 102 H Respiratory Rate 20 23 23 Blood Pressure 120/77 131/74 Pulse Oximetry 100 100 100 10/16/18 22:00 10/16/18 22:01 10/16/18 23:00 Temperature 100.4 F H 100.4 F H 100.4 F H Pulse Rate 101 H 101 H 95 H Respiratory Rate 22 21 20 Blood Pressure 125/76 Pulse Oximetry 100 100 100 10/16/18 23:01 10/17/18 00:00 10/17/18 00:01 Temperature 100.4 F H 100.4 F H 100.4 F H Pulse Rate 93 H 94 H 93 H Respiratory Rate 20 19 18 Blood Pressure 111/75 118/71 Pulse Oximetry 100 100 100 10/17/18 01:00 10/17/18 01:01 10/17/18 01:19 Temperature 100.2 F H 100.2 F H Pulse Rate 102 H 99 H Respiratory Rate 24 22 22 Blood Pressure 116/70 Pulse Oximetry 100 100 100 10/17/18 02:00 10/17/18 02:01 10/17/18 03:00 Temperature 100.2 F H 100.2 F H 100.0 F H Pulse Rate 98 H 98 H 90 Respiratory Rate 22 23 18 Blood Pressure 120/75 Pulse Oximetry 100 100 100 10/17/18 03:01 10/17/18 04:00 10/17/18 04:01 Temperature 100.0 F H 99.9 F H 99.9 F H Pulse Rate 90 89 89 Respiratory Rate 17 16 25 H Blood Pressure 116/76 108/73 Pulse Oximetry 100 100 100 10/17/18 04:31 10/17/18 04:49 10/17/18 05:00 Temperature 99.7 F H 99.5 F Pulse Rate 100 H 88 87 Respiratory Rate 25 H 20 21 Blood Pressure 145/87 H Pulse Oximetry 100 100 100 10/17/18 05:01 10/17/18 06:00 10/17/18 06:01 Temperature 99.5 F 99.5 F 99.7 F H Pulse Rate 88 102 H 102 H Respiratory Rate 22 20 19 Blood Pressure 132/76 129/74 Pulse Oximetry 100 100 100 10/17/18 07:50 10/17/18 12:08 Temperature Pulse Rate 92 H Respiratory Rate 20 23 Blood Pressure Pulse Oximetry 100 100 Intake & Output 10/16/18 10/17/18 10/17/18 18:59 06:59 18:59 Intake Total 2454.5 / 2454.5 1130.0 / 1130.0 200 / 200 Output Total 1950 / 1949 2100 / 2100 Balance 504.5 / 504.5 -970.0 / -970.0 200 / 200 Weight 58 kg Intake: IV 2354.5 / 2354.5 1130.0 / 1130.0 200 / 200 Protonix Inj 80 MG In NS Inj 86 / 86 100 ML @ 10 mls/hr IV.CONT CONT [facility] Rx#:[id number] Diprivan 1000 mg/100 ml Inj 1, 300 / 300 200 / 200 100 / 100 000 mg In 100 ml @ 5 MCG/KG/MIN 2.4 mls/hr IV.CONT TITRATE PRN Rx#:[id number] NS Inj 1,000 ML @ 75 mls/hr IV. 800 / 800 CONT .[id number] [facility] Rx#:[id number] KCl 20 mEq Premix Inj 20 meq In 400 / 400 100 ml @ 50 mls/hr IV.SIG Q2H PRN Rx#:[id number] Thiamine Inj 100 MG In NS Inj 101 / 101 100 ML @ 100 mls/hr IV.SIG DAILY [facility] Rx#:[id number] Vancomycin Inj 1,250 MG In NS 262.5 / 262.5 525.0 / 525.0 Inj 250 ML @ 250 mls/hr IV.SIG Q12H [facility] Rx#:[id number] Tazicef Inj 1,000 MG In NS Inj 100 / 100 200 / 200 100 / 100 100 ML @ 200 mls/hr IV.SIG Q8H [facility] Rx#:[id number] Keppra Inj 500 MG In NS Inj 100 105 / 105 105 / 105 ML @ 400 mls/hr IV.SIG Q12H [facility] Rx#:[id number] Flagyl 500 MG Inj 100 ML @ 100 200 / 200 100 / 100 mls/hr IV.SIG Q8H [facility] Rx#: [id number] Water Bolus Amount 100 / 100 Output: Urine Amount (Catheter) 1750 / 1750 1999 Indwelling Urethral Catheter 1750 / 1750 1999 Gastric Drainage 200 / 200 100 / 100 Oral 200 / 200 100 / 100 Result Diagrams: 10/17/18 05:00 10/16/18 01:53 Imaging: Impressions Carotid Doppler Study 10/16/18 10:06 CONCLUSION: Negative examination for a hemodynamically significant carotid stenosis. Gianni Raymundo MD FACR Head CT 10/17/18 00:00 CONCLUSION: 1. Stable exam as detailed above. . Chest X-Ray 10/17/18 06:00 CONCLUSION: Unchanged area of consolidation within the left upper lobe. Disinhibition Score: 14.00 Aggression Score: 14.00 Lability Score: 14.00 Agitated Behavior Total Score: 14
--- NOTE | 2018-10-17 15:26 | P.PNCC ---
Subjective Subjective Remarks/Hospital Course: 10/15: 53-year-old male with a medical history significant for hypertension, COPD who was found down at home, EMS was called and attempted intubation in the field for altered mental status after giving Versed and etomidate however patient had his teeth clenched and they could not intubated hence patient was bagged and brought to the ER. He was intubated in the ER and placed on mechanical ventilation. Head CT revealed left-sided small subdural hemorrhage and subarachnoid hemorrhage with skull base fracture with air around the sella. His hemoglobin came back 5.5. He was also noted to have coffee-ground material suctioned out of his NG tube. No melena or rectal bleeding noted. He was never hypotensive with systolic blood pressure in the 150s though he was tachycardic on arrival. He did spike a temperature in the ER of 101. Chest x- ray showed possible cavitary lesion in the left apex. Patient was accepted for admission by critical care medicine service after ER physician as discussed with trauma surgeon as well as Dr. Garcia from neurosurgery. When I evaluated the patient in the ER he was sedated with propofol, orally intubated on mechanical ventilation. History was obtained by reviewing records and discussion with ER physician. 10/16: Remains sedated, intubated on mechanical ventilation. Patient reportedly has significant alcohol abuse history. Currently has ICP monitor in place. ICPs not elevated overnight. Transfused 2 units PRBCs with hemoglobin increased to 9 g%. Awaiting EGD by GI today. 10/17: Remains sedated, orally intubated on mechanical ventilation. ICPs remained normal. Sputum positive for AFB sent on 10/15 on admission. MTB PCR pending. Objective Vital Signs / I&O: Vital Signs 10/16/18 16:00 10/16/18 16:01 10/16/18 17:01 Temperature 100.6 F H 100.6 F H 100.6 F H Pulse Rate 88 87 88 Respiratory Rate 20 21 20 Blood Pressure 132/79 120/75 Pulse Oximetry 100 100 100 10/16/18 17:16 10/16/18 18:01 10/16/18 19:01 Temperature 100.4 F H 100.0 F H Pulse Rate 103 H 91 H Respiratory Rate 20 22 19 Blood Pressure 108/74 126/78 Pulse Oximetry 100 100 100 10/16/18 20:00 10/16/18 20:01 10/16/18 21:00 Temperature 100.4 F H 100.4 F H 100.0 F H Pulse Rate 91 H 92 H 101 H Respiratory Rate 19 20 23 Blood Pressure 120/77 120/77 Pulse Oximetry 100 100 100 10/16/18 21:01 10/16/18 22:00 10/16/18 22:01 Temperature 100.0 F H 100.4 F H 100.4 F H Pulse Rate 102 H 101 H 101 H Respiratory Rate 23 22 21 Blood Pressure 131/74 125/76 Pulse Oximetry 100 100 100 10/16/18 23:00 10/16/18 23:01 10/17/18 00:00 Temperature 100.4 F H 100.4 F H 100.4 F H Pulse Rate 95 H 93 H 94 H Respiratory Rate 20 20 19 Blood Pressure 111/75 Pulse Oximetry 100 100 100 10/17/18 00:01 10/17/18 01:00 10/17/18 01:01 Temperature 100.4 F H 100.2 F H 100.2 F H Pulse Rate 93 H 102 H 99 H Respiratory Rate 18 24 22 Blood Pressure 118/71 116/70 Pulse Oximetry 100 100 100 10/17/18 01:19 10/17/18 02:00 10/17/18 02:01 Temperature 100.2 F H 100.2 F H Pulse Rate 98 H 98 H Respiratory Rate 22 22 23 Blood Pressure 120/75 Pulse Oximetry 100 100 100 10/17/18 03:00 10/17/18 03:01 10/17/18 04:00 Temperature 100.0 F H 100.0 F H 99.9 F H Pulse Rate 90 90 89 Respiratory Rate 18 17 16 Blood Pressure 116/76 Pulse Oximetry 100 100 100 10/17/18 04:01 10/17/18 04:31 10/17/18 04:49 Temperature 99.9 F H 99.7 F H Pulse Rate 89 100 H 88 Respiratory Rate 25 H 25 H 20 Blood Pressure 108/73 145/87 H Pulse Oximetry 100 100 100 10/17/18 05:00 10/17/18 05:01 10/17/18 06:00 Temperature 99.5 F 99.5 F 99.5 F Pulse Rate 87 88 102 H Respiratory Rate 21 22 20 Blood Pressure 132/76 Pulse Oximetry 100 100 100 10/17/18 06:01 10/17/18 07:50 10/17/18 12:08 Temperature 99.7 F H Pulse Rate 102 H 92 H Respiratory Rate 19 20 23 Blood Pressure 129/74 Pulse Oximetry 100 100 100 Intake & Output 10/16/18 10/17/18 10/17/18 18:59 06:59 18:59 Intake Total 2454.5 / 2454.5 1130.0 / 1130.0 200 / 200 Output Total 1950 / 1950 2099 / 2099 Balance 504.5 / 504.5 -970.0 / -970.0 200 / 200 Weight 58 kg Intake: IV 2354.5 / 2354.5 1130.0 / 1130.0 200 / 200 Protonix Inj 80 MG In NS Inj 86 / 86 100 ML @ 10 mls/hr IV.CONT CONT TOAN Rx#:[id number] Diprivan 1000 mg/100 ml Inj 1, 300 / 300 200 / 200 100 / 100 000 mg In 100 ml @ 5 MCG/KG/MIN 2.4 mls/hr IV.CONT TITRATE PRN Rx#:[id number] NS Inj 1,000 ML @ 75 mls/hr IV. 800 / 800 CONT .[id number] TOAN Rx#:[id number] KCl 20 mEq Premix Inj 20 meq In 400 / 400 100 ml @ 50 mls/hr IV.SIG Q2H PRN Rx#:[id number] Thiamine Inj 100 MG In NS Inj 101 / 101 100 ML @ 100 mls/hr IV.SIG DAILY TOAN Rx#:[id number] Vancomycin Inj 1,250 MG In NS 262.5 / 262.5 525.0 / 525.0 Inj 250 ML @ 250 mls/hr IV.SIG Q12H TOAN Rx#:[id number] Tazicef Inj 1,000 MG In NS Inj 100 / 100 200 / 200 100 / 100 100 ML @ 200 mls/hr IV.SIG Q8H TOAN Rx#:[id number] Keppra Inj 500 MG In NS Inj 100 105 / 105 105 / 105 ML @ 400 mls/hr IV.SIG Q12H TOAN Rx#:[id number] Flagyl 500 MG Inj 100 ML @ 100 200 / 200 100 / 100 mls/hr IV.SIG Q8H TOAN Rx#: [id number] Water Bolus Amount 100 / 100 Output: Urine Amount (Catheter) 1750 / 1750 2000 / 1999 Indwelling Urethral Catheter 1749 Gastric Drainage 200 / 200 100 / 100 Oral 200 / 200 100 / 100 Result Diagrams: 10/17/18 05:00 10/16/18 01:53 Other Results: Laboratory Results - last 24 hr 10/16/18 10/16/18 10/16/18 16:06 23:30 23:30 WBC RBC Hgb 8.0 L 7.5 L Hct 23.7 L 22.2 L MCV MCH MCHC RDW Plt Count MPV Neut % (Auto) Lymph % (Auto) [place] % (Auto) Eos % (Auto) Baso % (Auto) Neut # (Auto) Lymph # (Auto) [place] # (Auto) Eos # (Auto) Baso # (Auto) WBC Differential Differential Comment PT 11.2 INR 1.1 APTT 25.7 Puncture Site Patient Temperature O2 Saturation ABG pH ABG pCO2 ABG pO2 ABG HCO3 ABG O2 Content ABG Base Excess ABG Methemoglobin [place] Test Hemoglobin Carboxyhemoglobin O2 Delivery Device Vent Setting Inspired O2 Critical Value 10/17/18 10/17/18 05:00 05:14 WBC 17.0 H RBC 2.46 L Hgb 7.8 L Hct 22.4 L MCV 90.8 MCH 31.8 MCHC 35.0 RDW 16.9 Plt Count 287 MPV 8.0 Neut % (Auto) 74.8 H Lymph % (Auto) 10.9 [place] % (Auto) 12.6 H Eos % (Auto) 1.2 Baso % (Auto) 0.5 Neut # (Auto) 12.7 H Lymph # (Auto) 1.9 [place] # (Auto) 2.1 H Eos # (Auto) 0.2 Baso # (Auto) 0.1 WBC Differential . Differential Comment Auto diff final PT INR APTT Puncture Site Right radial Patient Temperature 98.6 O2 Saturation 96 ABG pH 7.50 H ABG pCO2 34 L ABG pO2 118 ABG HCO3 26 ABG O2 Content 10.7 L ABG Base Excess 2.5 H ABG Methemoglobin 1.0 [place] Test Present Hemoglobin 7.8 L* Carboxyhemoglobin 0.3 O2 Delivery Device Ventilator Vent Setting Prvc/ac Inspired O2 30 Critical Value Yes Imaging: Chest X-Ray 10/15/18 13:23 CONCLUSION: 1. ETT in good position. NGT in the stomach. 2. Ill-defined parenchymal and pleural opacities in the left upper lobe. Differential considerations include infection, including atypical infection, in the appropriate clinical setting. Cervical Spine CT 10/15/18 13:26 CONCLUSION: 1. No acute fracture or subluxation. 2. Partially imaged large cavitary lesion in the left lung apex. Chest CT to follow. 3. Multilevel degenerative spondylosis of the cervical spine. Head CT 10/15/18 13:26 CONCLUSION: 1. Mild subdural hemorrhage seen at the right frontal region, left tentorium, left anterior falx, and left temporal region. The left temporal region hemorrhage could also be subarachnoid hemorrhage. 2. Suspected skull base fracture around the sphenoid sinus and at the anterior inferior aspect of the right middle cranial fossa. There appears to be air within the suprasellar cistern region. . Abdomen/Pelvis CT 10/15/18 15:27 CONCLUSION: 1. Extensive wall thickening urinary bladder, neoplastic process should be excluded. 2. Diverticulosis without diverticulitis. 3. Bilateral nonobstructing renal calculi. 4. Left basilar infiltrate. Chest CT 10/15/18 15:27 CONCLUSION: 1. Prominent cavitary mass along the anterior lateral left upper lung. This could be inflammatory/infectious versus neoplastic. It is nonspecific. 2. Patchy areas of consolidation seen at the posterior left lower lung with some lesser degree of cavitary change. This most closely resembles postinflammatory change although is nonspecific. 3. Small nodules measuring less than 5 mm at the anterior left lower lung and at the right middle lobe. These are nonspecific. They can be followed. 4. Significant adenopathy is not seen. Carotid Doppler Study 10/16/18 10:06 CONCLUSION: Negative examination for a hemodynamically significant carotid stenosis. Gianni Raymundo MD FACR Head CT 10/17/18 00:00 CONCLUSION: 1. Stable exam as detailed above. . Chest X-Ray 10/17/18 06:00 CONCLUSION: Unchanged area of consolidation within the left upper lobe. Objective Remarks: HEENT/ Neuro: ICP monitor in place on left, sedated, Pupils 2mm bilaterally constricted, orally intubated, Pallor present, no icterus, tongue/ mucosa moist Neck: No JVD Chest/Pulm: on mech vent, good air entry bilaterally, no wheezing or crackles CVS: S1-S2 regular, no murmur GI/abdomen: soft, nontender, bowel sounds sluggish Extremities: warm bilaterally, no edema Assessment and Plan - Assessment and Plan Plan: 53-year-old male with: Encephalopathy Traumatic subdural hemorrhage/subarachnoid hemorrhage with skull base fracture Upper GI bleed Anemia-most likely acute on chronic blood loss related Sepsis Pneumonia Left upper lobe cavitary lesion-mass versus infectious versus other inflammatory process COPD Hypertension History of alcohol abuse Plan: Neuro: Sedation with propofol, daily sedation vacation. Follow neuro status per protocol. Neurosurgery consulted, Dr. Garcia performed burrhole with ICP monitor placement Repeat head CT 10/17 noted. On IV thiamine/folic acid/MVI. Watch for alcohol withdrawal. Initiate CIWA protocol. Pulmonary: Continue mechanical ventilation, vent bundle, bronchodilators. Sputum sent for Gram stain and cultures, AFB culture. Consulted pulmonary/ID for further evaluation of left upper lobe cavitary lesion. Sputum positive for AFB. Awaiting MTB PCR GI/liver: Consulted GI for further evaluation of upper GI bleed with severe anemia. Discussed with Dr. Pretty on 10/15. EGD done on 10/16 was negative for any active bleeding, blood clot in fundus probably from blood tracking down from pharynx, Grade A esophagitis noted. Protonix drip discontinued and placed on daily Protonix Defer to GI regarding colonoscopy as patient appears to have acute on chronic anemia as he came in with a hemoglobin of 5.5 and was hemodynamically stable. Heme: Follow CBC, Coags okay. Transfused 2 units PRBCs on 10/15. transfuse to keep hemoglobin above 7 g% provided patient maintains hemodynamic stability. ID: Follow-up blood cultures, sputum Gram stain and cultures, AFB staining and culture. UA and urine cultures. Empiric antibiotic coverage with IV ceftazidime/vancomycin/Flagyl ID consult requested for further evaluation of sepsis/pulmonary cavitary lesion. Sputum positive for AFB. Awaiting MTB PCR Endocrine: Watch for hyperglycemia, SSI for glycemic control if needed. Prophylaxis: Protonix GTT, SCDs. No subcu heparin in view of GI bleed, subdural hemorrhage/ subarachnoid hemorrhage until cleared by neurosurgery and GI Discussed with patient's sister earlier this morning who wanted to defer bronchoscopy. Discussed with pulmonary, discussed with ID, discussed with neurosurgery. Will consult palliative care to assist with deciding goals of therapy as patient sister said that they wanted to avoid any invasive procedures however was not clear regarding which 1 of the family members would be consenting and making decisions for the patient. Condition critical Time spent on critical care excluding procedures 40 minutes
--- NOTE | 2018-10-17 15:53 | P.PNGI ---
Subjective Interval history: Pt unresponsive, on Propofol gtt. Discussed with RN, OG output has been greenish in color. Physical Exam Vital signs: Vital Signs 10/16/18 16:00 10/16/18 16:01 10/16/18 17:01 Temperature 100.6 F H 100.6 F H 100.6 F H Pulse Rate 88 87 88 Respiratory Rate 20 21 20 Blood Pressure 132/79 120/75 Pulse Oximetry 100 100 100 10/16/18 17:16 10/16/18 18:01 10/16/18 19:01 Temperature 100.4 F H 100.0 F H Pulse Rate 103 H 91 H Respiratory Rate 20 22 19 Blood Pressure 108/74 126/78 Pulse Oximetry 100 100 100 10/16/18 20:00 10/16/18 20:01 10/16/18 21:00 Temperature 100.4 F H 100.4 F H 100.0 F H Pulse Rate 91 H 92 H 101 H Respiratory Rate 19 20 23 Blood Pressure 120/77 120/77 Pulse Oximetry 100 100 100 10/16/18 21:01 10/16/18 22:00 10/16/18 22:01 Temperature 100.0 F H 100.4 F H 100.4 F H Pulse Rate 102 H 101 H 101 H Respiratory Rate 23 22 21 Blood Pressure 131/74 125/76 Pulse Oximetry 100 100 100 10/16/18 23:00 10/16/18 23:01 10/17/18 00:00 Temperature 100.4 F H 100.4 F H 100.4 F H Pulse Rate 95 H 93 H 94 H Respiratory Rate 20 20 19 Blood Pressure 111/75 Pulse Oximetry 100 100 100 10/17/18 00:01 10/17/18 01:00 10/17/18 01:01 Temperature 100.4 F H 100.2 F H 100.2 F H Pulse Rate 93 H 102 H 99 H Respiratory Rate 18 24 22 Blood Pressure 118/71 116/70 Pulse Oximetry 100 100 100 10/17/18 01:19 10/17/18 02:00 10/17/18 02:01 Temperature 100.2 F H 100.2 F H Pulse Rate 98 H 98 H Respiratory Rate 22 22 23 Blood Pressure 120/75 Pulse Oximetry 100 100 100 10/17/18 03:00 10/17/18 03:01 10/17/18 04:00 Temperature 100.0 F H 100.0 F H 99.9 F H Pulse Rate 90 90 89 Respiratory Rate 18 17 16 Blood Pressure 116/76 Pulse Oximetry 100 100 100 10/17/18 04:01 10/17/18 04:31 10/17/18 04:49 Temperature 99.9 F H 99.7 F H Pulse Rate 89 100 H 88 Respiratory Rate 25 H 25 H 20 Blood Pressure 108/73 145/87 H Pulse Oximetry 100 100 100 10/17/18 05:00 10/17/18 05:01 10/17/18 06:00 Temperature 99.5 F 99.5 F 99.5 F Pulse Rate 87 88 102 H Respiratory Rate 21 22 20 Blood Pressure 132/76 Pulse Oximetry 100 100 100 10/17/18 06:01 10/17/18 07:50 10/17/18 12:08 Temperature 99.7 F H Pulse Rate 102 H 92 H Respiratory Rate 19 20 23 Blood Pressure 129/74 Pulse Oximetry 100 100 100 10/17/18 15:39 Temperature Pulse Rate Respiratory Rate 18 Blood Pressure Pulse Oximetry 100 Intake & Output 10/16/18 10/17/18 10/17/18 18:59 06:59 18:59 Intake Total 2454.5 / 2454.5 1130.0 / 1130.0 200 / 200 Output Total 1950 / 1950 2100 / 2100 Balance 504.5 / 504.5 -970.0 / -970.0 200 / 200 Weight 58 kg Intake: IV 2354.5 / 2354.5 1130.0 / 1130.0 200 / 200 Protonix Inj 80 MG In NS Inj 86 / 86 100 ML @ 10 mls/hr IV.CONT CONT TOAN Rx#:[id number] Diprivan 1000 mg/100 ml Inj 1, 300 / 300 200 / 200 100 / 100 000 mg In 100 ml @ 5 MCG/KG/MIN 2.4 mls/hr IV.CONT TITRATE PRN Rx#:[id number] NS Inj 1,000 ML @ 75 mls/hr IV. 800 / 800 CONT .[id number] TOAN Rx#:[id number] KCl 20 mEq Premix Inj 20 meq In 400 / 400 100 ml @ 50 mls/hr IV.SIG Q2H PRN Rx#:[id number] Thiamine Inj 100 MG In NS Inj 101 / 101 100 ML @ 100 mls/hr IV.SIG DAILY TOAN Rx#:[id number] Vancomycin Inj 1,250 MG In NS 262.5 / 262.5 525.0 / 525.0 Inj 250 ML @ 250 mls/hr IV.SIG Q12H TOAN Rx#:[id number] Tazicef Inj 1,000 MG In NS Inj 100 / 100 200 / 200 100 / 100 100 ML @ 200 mls/hr IV.SIG Q8H TOAN Rx#:[id number] Keppra Inj 500 MG In NS Inj 100 105 / 105 105 / 105 ML @ 400 mls/hr IV.SIG Q12H TOAN Rx#:[id number] Flagyl 500 MG Inj 100 ML @ 100 200 / 200 100 / 100 mls/hr IV.SIG Q8H TOAN Rx#: [id number] Water Bolus Amount 100 / 100 Output: Urine Amount (Catheter) 1750 / 1750 1999 Indwelling Urethral Catheter 1750 / 1750 1999 Gastric Drainage 200 / 200 100 / 100 Oral 200 / 200 100 / 100 - Constitutional no acute distress - Routine HEENT Exam Head: Present: normocephalic Comments: Positive for ICP monitor - Routine Respiratory Exam Present: patient mechanically ventilated Comments: respirations synchronized with vent - Routine Abdominal Exam Present: soft, normoactive bowel sounds. Absent: distended - Routine Skin Exam Present: dry, warm - Routine Neurological Exam unresponsive, on sedation - Urinary Catheter Management Indwelling Urethral Catheter Cath placed during this visit: yes Reason for continuing: Hourly intake/output Insertion date: 10/15/18 Insertion time: 14:00 Results - Labs CBC & Chem 7: 10/17/18 05:00 10/16/18 01:53 Laboratory Results - last 24 hr 10/16/18 10/16/18 10/16/18 16:06 23:30 23:30 WBC RBC Hgb 8.0 L 7.5 L Hct 23.7 L 22.2 L MCV MCH MCHC RDW Plt Count MPV Neut % (Auto) Lymph % (Auto) [place] % (Auto) Eos % (Auto) Baso % (Auto) Neut # (Auto) Lymph # (Auto) [place] # (Auto) Eos # (Auto) Baso # (Auto) WBC Differential Differential Comment PT 11.2 INR 1.1 APTT 25.7 Puncture Site Patient Temperature O2 Saturation ABG pH ABG pCO2 ABG pO2 ABG HCO3 ABG O2 Content ABG Base Excess ABG Methemoglobin [place] Test Hemoglobin Carboxyhemoglobin O2 Delivery Device Vent Setting Inspired O2 Critical Value 10/17/18 10/17/18 05:00 05:14 WBC 17.0 H RBC 2.46 L Hgb 7.8 L Hct 22.4 L MCV 90.8 MCH 31.8 MCHC 35.0 RDW 16.9 Plt Count 287 MPV 8.0 Neut % (Auto) 74.8 H Lymph % (Auto) 10.9 [place] % (Auto) 12.6 H Eos % (Auto) 1.2 Baso % (Auto) 0.5 Neut # (Auto) 12.7 H Lymph # (Auto) 1.9 [place] # (Auto) 2.1 H Eos # (Auto) 0.2 Baso # (Auto) 0.1 WBC Differential . Differential Comment Auto diff final PT INR APTT Puncture Site Right radial Patient Temperature 98.6 O2 Saturation 96 ABG pH 7.50 H ABG pCO2 34 L ABG pO2 118 ABG HCO3 26 ABG O2 Content 10.7 L ABG Base Excess 2.5 H ABG Methemoglobin 1.0 [place] Test Present Hemoglobin 7.8 L* Carboxyhemoglobin 0.3 O2 Delivery Device Ventilator Vent Setting Prvc/ac Inspired O2 30 Critical Value Yes Microbiology 10/15/18 17:44 Sputum - Endotracheal Acid Fast Bacilli Smear - Final Acid Fast Bacilli Seen 10/15/18 17:44 Sputum - Endotracheal Mycobacterial Culture - Preliminary 10/15/18 17:44 Sputum - Endotracheal Gram Stain - Final 10/15/18 17:44 Sputum - Endotracheal Sputum Culture - Preliminary Heavy growth normal respiratory munir 10/15/18 18:59 Blood - Peripheral Aerobic Blood Culture - Preliminary No growth in 2 days 10/15/18 18:59 Blood - Peripheral Anaerobic Blood Culture - Preliminary No growth in 2 days 10/15/18 13:45 Blood - Peripheral Aerobic Blood Culture - Preliminary No growth in 2 days 10/15/18 13:45 Blood - Peripheral Anaerobic Blood Culture - Preliminary No growth in 2 days 10/15/18 14:00 Clean Catch Urine Urine Culture - Final No growth in 48 hours - Imaging Impressions Head CT 10/17/18 00:00 CONCLUSION: 1. Stable exam as detailed above. . Chest X-Ray 10/17/18 06:00 CONCLUSION: Unchanged area of consolidation within the left upper lobe. Assessment and Plan (1) GI bleed Status: Acute Code(s): K92.2 - Gastrointestinal hemorrhage, unspecified (2) Anemia Status: Acute Code(s): D64.9 - Anemia, unspecified - Plan Assessment: - Anemia with coffee ground aspirate reported from OG tube suction History of ETOH abuse, pt was drinking 12 beers a day. EGD (10/16) Class A esophagitis, blood clot in fundus, removed with an net, underlying mucosa normal, normal duodenal mucosa in the entire duodenum, no active bleeding. ? source of bleeding from oral or nasal cavity. No further reports of coffee ground emesis, current output from OG tube is green in color. H/H did drop overnight but has been stable throughout the day. CT abdomen and pelvis (10/15) --> Extensive wall thickening urinary bladder, neoplastic process should be excluded. Diverticulosis without diverticulitis. Bilateral nonobstructing renal calculi. Left basilar infiltrate. - Subarachnoid and subdural hematoma with skull base fracture and air around the sella- being followed by neurosurgery, currently has ICP monitor - Cavitary lesion on imaging- ? TB given previous incarcerations and ? (+) PPD in the past- ID following Plan Monitor H/H Continue Protonix Our service will sign off, no further indication of GIB, please reconsult as needed This patient has been seen and examined by myself and Dr. Pretty and this note is written on his behalf
[2018-10-17] MEDS ORDERED: Sodium Chloride 0.9% 2 ML Flush PRN IV.FLUSH (16:09)
--- NOTE | 2018-10-17 16:18 | P.CONPAL ---
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 Myelocytes % (Man) Promyelocytes % (Man) Abs Neuts (Manual) Differential Comment Platelet Estimate Platelet Morphology Ovalocytes PT INR APTT Puncture Site Patient Temperature O2 Saturation ABG pH ABG pCO2 ABG pO2 ABG HCO3 ABG O2 Content ABG Base Excess ABG Methemoglobin [place] Test Hemoglobin Carboxyhemoglobin O2 Delivery Device Vent Setting Inspired O2 Critical Value Sodium Potassium Chloride Carbon Dioxide Anion Gap BUN Creatinine Estimated GFR POC Glucose 147 H Random Glucose Lactic Acid 2.6 H Calcium Calcium Adj for Albumin Total Bilirubin AST ALT Alkaline Phosphatase Ammonia Total Creatine Kinase 140 Troponin I Less than 0.02 L Total Protein Albumin TSH Urine Color Urine Clarity Urine pH Ur Specific [place] Urine Protein Urine Glucose (UA) Urine Ketones Urine Occult Blood Urine Nitrate Urine Bilirubin Urine Urobilinogen Ur Leukocyte Esterase Urine RBC Urine WBC Ur Squamous Epith Cells Urine Bacteria Hyaline Casts Urine Mucus Micro UA Comment Ur Microscopic Review Urine Culture Comments Nasal Screen MRSA (PCR) Urine Opiates Screen Ur Barbiturates Screen Ur Amphetamines Screen U Benzodiazepines Scrn Urine Cocaine Screen U Cannabinoids Screen Serum Alcohol M.tuberculosis DNA (PCR) Blood Type Antibody Screen MTS Gel Crossmatch 10/15/18 10/15/18 10/15/18 21:39 22:45 23:33 WBC RBC Hgb 9.0 L D Hct 25.6 L MCV MCH MCHC RDW Plt Count MPV Prelim Diff (Auto) Neut % (Auto) Lymph % (Auto) [place] % (Auto) Eos % (Auto) Baso % (Auto) Neut # (Auto) Lymph # (Auto) [place] # (Auto) Eos # (Auto) Baso # (Auto) WBC Differential Seg Neuts % (Manual) Band Neuts % (Manual) Lymphocytes % (Manual) Monocytes % (Manual) Eosinophils % (Manual) Basophils % (Manual) Myelocytes % (Man) Promyelocytes % (Man) Abs Neuts (Manual) Differential Comment Platelet Estimate Platelet Morphology Ovalocytes PT INR APTT Puncture Site Patient Temperature O2 Saturation ABG pH ABG pCO2 ABG pO2 ABG HCO3 ABG O2 Content ABG Base Excess ABG Methemoglobin [place] Test Hemoglobin Carboxyhemoglobin O2 Delivery Device Vent Setting Inspired O2 Critical Value Sodium Potassium Chloride Carbon Dioxide Anion Gap BUN Creatinine Estimated GFR POC Glucose 154 H Random Glucose Lactic Acid Calcium Calcium Adj for Albumin Total Bilirubin AST ALT Alkaline Phosphatase Ammonia Total Creatine Kinase Troponin I Total Protein Albumin TSH Urine Color Urine Clarity Urine pH Ur Specific [place] Urine Protein Urine Glucose (UA) Urine Ketones Urine Occult Blood Urine Nitrate Urine Bilirubin Urine Urobilinogen Ur Leukocyte Esterase Urine RBC Urine WBC Ur Squamous Epith Cells Urine Bacteria Hyaline Casts Urine Mucus Micro UA Comment Ur Microscopic Review Urine Culture Comments Nasal Screen MRSA (PCR) Not detected Urine Opiates Screen Ur Barbiturates Screen Ur Amphetamines Screen U Benzodiazepines Scrn Urine Cocaine Screen U Cannabinoids Screen Serum Alcohol M.tuberculosis DNA (PCR) Blood Type Antibody Screen MTS Gel Crossmatch 10/16/18 10/16/18 10/16/18 01:53 01:53 01:53 WBC 20.3 H RBC 2.89 L Hgb 9.2 L 9.3 L Hct 26.3 L 26.7 L MCV 92.2 D MCH 32.0 MCHC 34.7 RDW 16.8 Plt Count 266 MPV 8.4 Prelim Diff (Auto) Slide review pending Neut % (Auto) 73.3 H Lymph % (Auto) 9.6 [place] % (Auto) 15.8 H Eos % (Auto) 0.9 Baso % (Auto) 0.4 Neut # (Auto) 14.9 H Lymph # (Auto) 1.9 [place] # (Auto) 3.2 H Eos # (Auto) 0.2 Baso # (Auto) 0.1 WBC Differential Manual diff final Seg Neuts % (Manual) 71 H Band Neuts % (Manual) 11 H Lymphocytes % (Manual) 9 Monocytes % (Manual) 8 Eosinophils % (Manual) 1 Basophils % (Manual) Myelocytes % (Man) Promyelocytes % (Man) Abs Neuts (Manual) 16.6 H Differential Comment . Platelet Estimate Normal Platelet Morphology Normal Ovalocytes 1+ H PT INR APTT Puncture Site Patient Temperature O2 Saturation ABG pH ABG pCO2 ABG pO2 ABG HCO3 ABG O2 Content ABG Base Excess ABG Methemoglobin [place] Test Hemoglobin Carboxyhemoglobin O2 Delivery Device Vent Setting Inspired O2 Critical Value Sodium 142 Potassium 3.1 L D Chloride 110 H Carbon Dioxide 22.8 Anion Gap 9 BUN 21 H Creatinine 0.63 Estimated GFR Greater than 89 POC Glucose Random Glucose 146 H Lactic Acid Calcium 7.0 L* Calcium Adj for Albumin 8.6 Total Bilirubin 0.5 AST 32 ALT 15 Alkaline Phosphatase 66 Ammonia Total Creatine Kinase 79 Troponin I Less than 0.02 L Total Protein 5.9 L D Albumin 2.0 L TSH Urine Color Urine Clarity Urine pH Ur Specific [place] Urine Protein Urine Glucose (UA) Urine Ketones Urine Occult Blood Urine Nitrate Urine Bilirubin Urine Urobilinogen Ur Leukocyte Esterase Urine RBC Urine WBC Ur Squamous Epith Cells Urine Bacteria Hyaline Casts Urine Mucus Micro UA Comment Ur Microscopic Review Urine Culture Comments Nasal Screen MRSA (PCR) Urine Opiates Screen Ur Barbiturates Screen Ur Amphetamines Screen U Benzodiazepines Scrn Urine Cocaine Screen U Cannabinoids Screen Serum Alcohol M.tuberculosis DNA (PCR) Blood Type Antibody Screen MTS Gel Crossmatch 10/16/18 10/16/18 10/16/18 05:18 08:10 16:06 WBC RBC Hgb 8.1 L 8.0 L Hct 21.5 L 23.7 L MCV MCH MCHC RDW Plt Count MPV Prelim Diff (Auto) Neut % (Auto) Lymph % (Auto) [place] % (Auto) Eos % (Auto) Baso % (Auto) Neut # (Auto) Lymph # (Auto) [place] # (Auto) Eos # (Auto) Baso # (Auto) WBC Differential Seg Neuts % (Manual) Band Neuts % (Manual) Lymphocytes % (Manual) Monocytes % (Manual) Eosinophils % (Manual) Basophils % (Manual) Myelocytes % (Man) Promyelocytes % (Man) Abs Neuts (Manual) Differential Comment Platelet Estimate Platelet Morphology Ovalocytes PT INR APTT Puncture Site Right radial Patient Temperature 98.6 O2 Saturation 97 ABG pH 7.47 H ABG pCO2 34 L ABG pO2 185 H ABG HCO3 24 ABG O2 Content 11.6 L ABG Base Excess 0.7 ABG Methemoglobin 1.7 [place] Test Present Hemoglobin 8.3 L Carboxyhemoglobin 1.2 O2 Delivery Device Ventilator Vent Setting Prvc/ac Inspired O2 40 Critical Value No Sodium Potassium Chloride Carbon Dioxide Anion Gap BUN Creatinine Estimated GFR POC Glucose Random Glucose Lactic Acid Calcium Calcium Adj for Albumin Total Bilirubin AST ALT Alkaline Phosphatase Ammonia Total Creatine Kinase Troponin I Total Protein Albumin TSH Urine Color Urine Clarity Urine pH Ur Specific [place] Urine Protein Urine Glucose (UA) Urine Ketones Urine Occult Blood Urine Nitrate Urine Bilirubin Urine Urobilinogen Ur Leukocyte Esterase Urine RBC Urine WBC Ur Squamous Epith Cells Urine Bacteria Hyaline Casts Urine Mucus Micro UA Comment Ur Microscopic Review Urine Culture Comments Nasal Screen MRSA (PCR) Urine Opiates Screen Ur Barbiturates Screen Ur Amphetamines Screen U Benzodiazepines Scrn Urine Cocaine Screen U Cannabinoids Screen Serum Alcohol M.tuberculosis DNA (PCR) Blood Type Antibody Screen MTS Gel Crossmatch 10/16/18 10/16/18 10/17/18 23:30 23:30 05:00 WBC 17.0 H RBC 2.46 L Hgb 7.5 L 7.8 L Hct 22.2 L 22.4 L MCV 90.8 MCH 31.8 MCHC 35.0 RDW 16.9 Plt Count 287 MPV 8.0 Prelim Diff (Auto) Neut % (Auto) 74.8 H Lymph % (Auto) 10.9 [place] % (Auto) 12.6 H Eos % (Auto) 1.2 Baso % (Auto) 0.5 Neut # (Auto) 12.7 H Lymph # (Auto) 1.9 [place] # (Auto) 2.1 H Eos # (Auto) 0.2 Baso # (Auto) 0.1 WBC Differential . Seg Neuts % (Manual) Band Neuts % (Manual) Lymphocytes % (Manual) Monocytes % (Manual) Eosinophils % (Manual) Basophils % (Manual) Myelocytes % (Man) Promyelocytes % (Man) Abs Neuts (Manual) Differential Comment Auto diff final Platelet Estimate Platelet Morphology Ovalocytes PT 11.2 INR 1.1 APTT 25.7 Puncture Site Patient Temperature O2 Saturation ABG pH ABG pCO2 ABG pO2 ABG HCO3 ABG O2 Content ABG Base Excess ABG Methemoglobin [place] Test Hemoglobin Carboxyhemoglobin O2 Delivery Device Vent Setting Inspired O2 Critical Value Sodium Potassium Chloride Carbon Dioxide Anion Gap BUN Creatinine Estimated GFR POC Glucose Random Glucose Lactic Acid Calcium Calcium Adj for Albumin Total Bilirubin AST ALT Alkaline Phosphatase Ammonia Total Creatine Kinase Troponin I Total Protein Albumin TSH Urine Color Urine Clarity Urine pH Ur Specific [place] Urine Protein Urine Glucose (UA) Urine Ketones Urine Occult Blood Urine Nitrate Urine Bilirubin Urine Urobilinogen Ur Leukocyte Esterase Urine RBC Urine WBC Ur Squamous Epith Cells Urine Bacteria Hyaline Casts Urine Mucus Micro UA Comment Ur Microscopic Review Urine Culture Comments Nasal Screen MRSA (PCR) Urine Opiates Screen Ur Barbiturates Screen Ur Amphetamines Screen U Benzodiazepines Scrn Urine Cocaine Screen U Cannabinoids Screen Serum Alcohol M.tuberculosis DNA (PCR) Blood Type Antibody Screen MTS Gel Crossmatch 10/17/18 05:14 WBC RBC Hgb Hct MCV MCH MCHC RDW Plt Count MPV Prelim Diff (Auto) Neut % (Auto) Lymph % (Auto) [place] % (Auto) Eos % (Auto) Baso % (Auto) Neut # (Auto) Lymph # (Auto) [place] # (Auto) Eos # (Auto) Baso # (Auto) WBC Differential Seg Neuts % (Manual) Band Neuts % (Manual) Lymphocytes % (Manual) Monocytes % (Manual) Eosinophils % (Manual) Basophils % (Manual) Myelocytes % (Man) Promyelocytes % (Man) Abs Neuts (Manual) Differential Comment Platelet Estimate Platelet Morphology Ovalocytes PT INR APTT Puncture Site Right radial Patient Temperature 98.6 O2 Saturation 96 ABG pH 7.50 H ABG pCO2 34 L ABG pO2 118 ABG HCO3 26 ABG O2 Content 10.7 L ABG Base Excess 2.5 H ABG Methemoglobin 1.0 [place] Test Present Hemoglobin 7.8 L* Carboxyhemoglobin 0.3 O2 Delivery Device Ventilator Vent Setting Prvc/ac Inspired O2 30 Critical Value Yes Sodium Potassium Chloride Carbon Dioxide Anion Gap BUN Creatinine Estimated GFR POC Glucose Random Glucose Lactic Acid Calcium Calcium Adj for Albumin Total Bilirubin AST ALT Alkaline Phosphatase Ammonia Total Creatine Kinase Troponin I Total Protein Albumin TSH Urine Color Urine Clarity Urine pH Ur Specific [place] Urine Protein Urine Glucose (UA) Urine Ketones Urine Occult Blood Urine Nitrate Urine Bilirubin Urine Urobilinogen Ur Leukocyte Esterase Urine RBC Urine WBC Ur Squamous Epith Cells Urine Bacteria Hyaline Casts Urine Mucus Micro UA Comment Ur Microscopic Review Urine Culture Comments Nasal Screen MRSA (PCR) Urine Opiates Screen Ur Barbiturates Screen Ur Amphetamines Screen U Benzodiazepines Scrn Urine Cocaine Screen U Cannabinoids Screen Serum Alcohol M.tuberculosis DNA (PCR) Blood Type Antibody Screen MTS Gel Crossmatch Result Diagrams: 10/17/18 05:00 10/16/18 01:53 Microbiology: Microbiology 10/15/18 17:44 Acid Fast Bacilli Smear - Final Sputum - Endotracheal Acid Fast Bacilli Seen Mycobacterial Culture - Preliminary 10/15/18 17:44 Gram Stain - Final Sputum - Endotracheal Sputum Culture - Preliminary Heavy growth normal respiratory munir 10/15/18 18:59 Aerobic Blood Culture - Preliminary Blood - Peripheral No growth in 2 days Anaerobic Blood Culture - Preliminary No growth in 2 days 10/15/18 13:45 Aerobic Blood Culture - Preliminary Blood - Peripheral No growth in 2 days Anaerobic Blood Culture - Preliminary No growth in 2 days 10/15/18 14:00 Urine Culture - Final Clean Catch Urine No growth in 48 hours Imaging: Impressions Abdomen/Pelvis CT 10/15/18 15:27 CONCLUSION: 1. Extensive wall thickening urinary bladder, neoplastic process should be excluded. 2. Diverticulosis without diverticulitis. 3. Bilateral nonobstructing renal calculi. 4. Left basilar infiltrate. Chest CT 10/15/18 15:27 CONCLUSION: 1. Prominent cavitary mass along the anterior lateral left upper lung. This could be inflammatory/infectious versus neoplastic. It is nonspecific. 2. Patchy areas of consolidation seen at the posterior left lower lung with some lesser degree of cavitary change. This most closely resembles postinflammatory change although is nonspecific. 3. Small nodules measuring less than 5 mm at the anterior left lower lung and at the right middle lobe. These are nonspecific. They can be followed. 4. Significant adenopathy is not seen. Carotid Doppler Study 10/16/18 10:06 CONCLUSION: Negative examination for a hemodynamically significant carotid stenosis. Head CT 10/17/18 00:00 CONCLUSION: 1. Stable exam as detailed above. Chest X-Ray 10/17/18 06:00 CONCLUSION: Unchanged area of consolidation within the left upper lobe. Procedures: 10/15/18: Intubated, bolt placed Patient/Family Conference Present at Family Conference: Spoke with sister Edith and aunt Tanja via phone. Family Conference Location: Telephone Issues Discussed: * Palliative care role, purpose, approach * Additional medical, psychosocial, and spiritual history * Patients general health, functional status, and cognitive changes in the months leading up to the current hospitalization * family understanding of the current medical problems * family understanding of prognosis * Patients goals of care as best understood from advance directives and/or conversations and/or values * Current medical treatment options and benefits/burdens of those options * Likely scenarios comparing ongoing aggressive care with conservative care * Questions answered to the best of my ability * Palliative care contact information provided Assessment and Plan - Symptom Scale (1) Anxiety 0-10 Scale: Unable to quantify (2) Dyspnea 0-10 Scale: Unable to quantify (3) Pain 0-10 Scale: Unable to quantify (4) Confusion 0-10 Scale: Unable to quantify Pertinent Non-Medical Issues: Psychosocial: Patient was living independently with a roommate prior to history of alcohol and substance abuse. He has been incarcerated several times. Spiritual: Unavailable Legal: Patient is currently not capacitated to make his own decisions. Patient' s aunt Tanja has produced POA paperwork that will need to be verified. If POA paperwork is not valid legal proxy would fall to patient's 4 sisters. Ethical issues impacting care: None Important Contacts: GIANCARLO Agrawal [phone] Sister Edith [phone] Sister Leydi ([facility]) [phone] Sister Vira [phone] ([place]) Sister Reji [phone] ([place]) Prognosis: Given long history of alcohol and substance abuse patient at risk for setbacks. Withdrawal may also contribute to worsening of intracranial hemorrhage and/or respiratory status. Pending findings of lung biopsy post bronch, patient likely will survive this hospitalization though may have residual cognitive and functional deficits. Code Status: Full Code Plan: Legal decision maker: Patient is currently not capacitated to make his own decisions.Patient's aunt Tanja has produced POA paperwork that will need to be verified. If POA paperwork is not valid legal proxy would fall to patient's 4 sisters. Goals: Goals remain aggressive at this time. Family seems to be having difficulty understanding nature of invasive procedures. Need to continue to reexplore in the coming days. Possible removal of ICP monitor and extubation post bronch. CODE STATUS: FULL CODE SYMPTOMS: --Dyspnea: Currently mechanically ventilated. Has long history of positive AFB cultures. At risk for respiratory failure post extubation secondary to alcohol withdrawal. May likely be medically extubated in the coming days. Plan for bronchoscopy in the coming days. --Anxiety: Currently sedated. At risk for anxiety secondary to hospitalization , alcohol withdrawal, and neuro status. Has withdrawal protocol and Haldol in place. Will need to continue to monitor closely in the coming days. Palliative care will continue to follow during hospital course as condition evolves, to assist patient/decision-maker with understanding of medical conditions, weighing benefits/burdens of treatment options, for clarification of goals of treatment. Additionally will assist with any symptoms of palliative concern Appreciation Thank you for the opportunity to participate in the care of Evaristo Miller. Attestation Collaborating Comments: Dr. Bates Attestation: To help prompt me to consider important information that might be impacting today's encounter and assessment, information from prior notes written by myself or my colleagues may have been "brought forward" into today's note. My signature on this note, however, is an attestation that I personally performed the exam, history, and/or decision-making noted today, and, unless otherwise indicated, the interactions with patient, family, and staff as well as the review of records all occurred today. I also attest that the listed assessment and stated plan reflect my best clinical judgment today based on the combination of historical information, prior notes, and today's exam/ interactions. When time spent is documented, it refers only to time spent today by the signer, or if indicated, combined time spent today by collaborating physician/nurse practitioner.
[2018-10-17] MEDS: Dextrose 5%/NaCl 0.45% Inj 1,000 ML IV.CONT SCH (17:04)
[2018-10-17] MEDS: Sodium Chloride 0.9% 2 ML Flush BID IV.FLUSH SCH (21:12)
[2018-10-18] MEDS: Propofol 1000 mg/100 ml Inj 1,000 MG/100 ML BOTTLE IV.CONT PRN ×6 (02:10→23:55)
[2018-10-18] MEDS: Chlorhexidine Gluconate 2% 1 Pack (2 Cloths) TOPICAL SCH (04:51)
[2018-10-18] MEDS: Sod Chloride 0.9% Inj 1,000 ML IV.CONT SCH ×2 (05:21→19:47)
[2018-10-18] MEDS: Vancomycin Inj 1,250 MG in Sodium Chlor 0.9% Inj 250 ML IV.SIG SCH ×2 (05:21→19:54)
[2018-10-18] MEDS ORDERED: Pharmacy Ordered Lab Info OTHER ONE ×2 (05:45→17:45)
[2018-10-18] MEDS: Thiamine Inj 100 MG in Sodium Chlor 0.9% Inj 100 ML IV.SIG SCH (08:30)
[2018-10-18 08:50] LABS: Glomerular Filtration Rate Greater Than 89 mL/min (>89)
[2018-10-18 08:59] LABS: Baso # (Auto) 0.2 th/mm3 (0.0-0.2); Eos # (Auto) 0.2 th/mm3 (0.0-0.4); Eos % (Auto) 1.3 % (0.0-4.0); Lymph # (Auto) 1.6 th/mm3 (1.0-4.8); Lymph % (Auto) 9.8 % (9.0-44.0); Mean Corpuscular HGB Conc 34.9 % (32.0-36.0); Mean Corpuscular Hemoglobin 32.3 pg (27.0-34.0); Mean Corpuscular Volume 92.5 fL (80.0-100.0); Mean Platelet Volume 8.4 fL (7.0-11.0); Mono # (Auto) 2.2 th/mm3 (0.0-0.9); Mono % (Auto) 13.4 % (0.0-8.0); Neut # (Auto) 12.4 th/mm3 (1.8-7.7); Neut % (Auto) 74.5 % (16.0-70.0); Platelet Count 346 th/mm3 (150-450); Red Blood Count 1.62 mil/mm3 (4.50-5.90); Red Cell Distribution Width 17.3 % (11.6-17.2); White Blood Count 16.6 th/mm3 (4.0-11.0)
[2018-10-18 09:03] LABS: Hemoglobin 5.2 gm/dL (13.0-17.0)
--- NOTE | 2018-10-18 09:04 | P.PNCC ---
Subjective Subjective Remarks/Hospital Course: 10/15: 53-year-old male with a medical history significant for hypertension, COPD who was found down at home, EMS was called and attempted intubation in the field for altered mental status after giving Versed and etomidate however patient had his teeth clenched and they could not intubated hence patient was bagged and brought to the ER. He was intubated in the ER and placed on mechanical ventilation. Head CT revealed left-sided small subdural hemorrhage and subarachnoid hemorrhage with skull base fracture with air around the sella. His hemoglobin came back 5.5. He was also noted to have coffee-ground material suctioned out of his NG tube. No melena or rectal bleeding noted. He was never hypotensive with systolic blood pressure in the 150s though he was tachycardic on arrival. He did spike a temperature in the ER of 101. Chest x- ray showed possible cavitary lesion in the left apex. Patient was accepted for admission by critical care medicine service after ER physician as discussed with trauma surgeon as well as Dr. Garcia from neurosurgery. When I evaluated the patient in the ER he was sedated with propofol, orally intubated on mechanical ventilation. History was obtained by reviewing records and discussion with ER physician. 10/16: Remains sedated, intubated on mechanical ventilation. Patient reportedly has significant alcohol abuse history. Currently has ICP monitor in place. ICPs not elevated overnight. Transfused 2 units PRBCs with hemoglobin increased to 9 g%. Awaiting EGD by GI today. 10/17: Remains sedated, orally intubated on mechanical ventilation. ICPs remained normal. Sputum positive for AFB sent on 10/15 on admission. MTB PCR pending. 10/18: Remains sedated, orally intubated on mechanical ventilation. ICPs remain normal. MTB PCR negative. Family deciding regarding bronchoscopy and other invasive procedures. Objective Vital Signs / I&O: Vital Signs 10/17/18 09:00 10/17/18 09:01 10/17/18 09:06 Temperature 99.3 F 99.3 F 99.3 F Pulse Rate 91 H 94 H 93 H Respiratory Rate 20 20 20 Blood Pressure 121/72 121/72 119/69 Pulse Oximetry 100 100 100 10/17/18 10:00 10/17/18 10:01 10/17/18 10:08 Temperature 99.7 F H 99.7 F H 99.7 F H Pulse Rate 96 H 96 H 100 H Respiratory Rate 18 19 21 Blood Pressure 138/78 138/78 125/80 Pulse Oximetry 100 100 100 10/17/18 11:00 10/17/18 11:01 10/17/18 12:00 Temperature 99.7 F H 99.3 F 100.2 F H Pulse Rate 104 H 107 H 96 H Respiratory Rate 22 36 H 19 Blood Pressure 125/80 125/80 Pulse Oximetry 100 100 10/17/18 12:01 10/17/18 12:08 10/17/18 13:00 Temperature 100.2 F H 100.6 F H Pulse Rate 103 H 110 H Respiratory Rate 19 23 23 Blood Pressure 122/76 128/81 Pulse Oximetry 100 100 100 10/17/18 13:01 10/17/18 14:00 10/17/18 14:01 Temperature 100.4 F H 101.3 F H 101.3 F H Pulse Rate 110 H 109 H 108 H Respiratory Rate 23 22 23 Blood Pressure 128/81 132/75 Pulse Oximetry 100 99 100 10/17/18 15:39 10/17/18 15:41 10/17/18 16:00 Temperature 101.7 F H 101.7 F H Pulse Rate 95 H 96 H Respiratory Rate 18 18 19 Blood Pressure Pulse Oximetry 100 100 100 10/17/18 16:03 10/17/18 17:00 10/17/18 17:03 Temperature 101.7 F H 101.7 F H 101.7 F H Pulse Rate 94 H 115 H 117 H Respiratory Rate 19 24 24 Blood Pressure 129/77 145/80 H 145/80 H Pulse Oximetry 100 100 100 10/17/18 18:00 10/17/18 18:03 10/17/18 19:00 Temperature 100.0 F H 100.0 F H 99.1 F Pulse Rate 90 88 96 H Respiratory Rate 16 16 23 Blood Pressure 133/75 133/75 Pulse Oximetry 100 100 100 10/17/18 19:03 10/17/18 19:52 10/17/18 20:00 Temperature 99.1 F 98.8 F Pulse Rate 96 H 94 H 96 H Respiratory Rate 23 22 23 Blood Pressure 131/79 Pulse Oximetry 100 100 100 10/17/18 20:03 10/17/18 21:00 10/17/18 21:03 Temperature 99.0 F 99.1 F 99.1 F Pulse Rate 92 H 101 H 100 H Respiratory Rate 22 23 24 Blood Pressure 140/88 146/88 H Pulse Oximetry 100 100 100 10/17/18 22:00 10/17/18 22:03 10/17/18 23:00 Temperature 99.7 F H 99.7 F H 100.2 F H Pulse Rate 99 H 100 H 86 Respiratory Rate 23 24 15 Blood Pressure 153/91 H Pulse Oximetry 100 100 100 10/17/18 23:03 10/17/18 23:32 10/18/18 00:00 Temperature 100.2 F H 100.0 F H Pulse Rate 86 97 H Respiratory Rate 14 16 19 Blood Pressure 120/76 Pulse Oximetry 100 100 100 10/18/18 00:03 10/18/18 01:00 10/18/18 01:03 Temperature 100.0 F H 100.8 F H 100.6 F H Pulse Rate 84 93 H 101 H Respiratory Rate 18 20 28 H Blood Pressure 146/79 H 163/103 H Pulse Oximetry 100 100 100 10/18/18 01:04 10/18/18 02:00 10/18/18 02:03 Temperature 100.6 F H 100.8 F H 100.8 F H Pulse Rate 108 H 88 89 Respiratory Rate 46 H 20 20 Blood Pressure 149/85 H 114/73 Pulse Oximetry 100 100 100 10/18/18 03:00 10/18/18 03:03 10/18/18 03:31 Temperature 100.8 F H 100.8 F H Pulse Rate 88 90 84 Respiratory Rate 16 16 24 Blood Pressure 115/76 Pulse Oximetry 100 100 100 10/18/18 04:00 10/18/18 04:03 10/18/18 05:00 Temperature 101.1 F H 101.1 F H 101.7 F H Pulse Rate 100 H 96 H 96 H Respiratory Rate 20 19 16 Blood Pressure 154/87 H Pulse Oximetry 100 100 100 10/18/18 05:03 10/18/18 06:00 10/18/18 06:03 Temperature 101.7 F H 101.3 F H 101.3 F H Pulse Rate 96 H 90 90 Respiratory Rate 16 18 18 Blood Pressure 119/74 133/80 Pulse Oximetry 100 100 100 10/18/18 07:43 Temperature Pulse Rate Respiratory Rate 18 Blood Pressure Pulse Oximetry 100 Intake & Output 10/17/18 10/18/18 10/18/18 18:59 06:59 18:59 Intake Total 806 / 806 2130.0 / 2130.0 Output Total 1600 / 1600 1850 / 1850 Balance -794 / -794 280.0 / 280.0 Weight 57.7 kg Intake: IV 806 / 806 2130.0 / 2130.0 Diprivan 1000 mg/100 ml Inj 1, 200 / 200 300 / 300 000 mg In 100 ml @ 5 MCG/KG/MIN 2.4 mls/hr IV.CONT TITRATE PRN Rx#:[id number] NS Inj 1,000 ML @ 75 mls/hr IV. 1000 / 1000 CONT .[id number] TOAN Rx#:[id number] Thiamine Inj 100 MG In NS Inj 101 / 101 100 ML @ 100 mls/hr IV.SIG DAILY TOAN Rx#:[id number] Vancomycin Inj 1,250 MG In NS 525.0 / 525.0 Inj 250 ML @ 250 mls/hr IV.SIG Q12H TOAN Rx#:[id number] Tazicef Inj 1,000 MG In NS Inj 200 / 200 100 / 100 100 ML @ 200 mls/hr IV.SIG Q8H TOAN Rx#:[id number] Keppra Inj 500 MG In NS Inj 100 105 / 105 105 / 105 ML @ 400 mls/hr IV.SIG Q12H TOAN Rx#:[id number] Flagyl 500 MG Inj 100 ML @ 100 200 / 200 100 / 100 mls/hr IV.SIG Q8H TOAN Rx#: [id number] Output: Urine Amount (Catheter) 1450 / 1450 1600 / 1600 Indwelling Urethral Catheter 1450 / 1450 1600 / 1600 Gastric Drainage 150 / 150 250 / 250 Oral 150 / 150 250 / 250 Other: # Bowel Movements 0 0 Result Diagrams: 10/17/18 05:00 10/18/18 07:05 Objective Remarks: HEENT/ Neuro: ICP monitor in place on left, sedated, Pupils 2mm bilaterally constricted, orally intubated, Pallor present, no icterus, tongue/ mucosa moist Neck: No JVD Chest/Pulm: on mech vent, good air entry bilaterally, no wheezing or crackles CVS: S1-S2 regular, no murmur GI/abdomen: soft, nontender, bowel sounds sluggish Extremities: warm bilaterally, no edema Assessment and Plan - Assessment and Plan Plan: 53-year-old male with: Encephalopathy Traumatic subdural hemorrhage/subarachnoid hemorrhage with skull base fracture Upper GI bleed Anemia-most likely acute on chronic blood loss related Sepsis Pneumonia Left upper lobe cavitary lesion-mass versus infectious versus other inflammatory process. Sputum AFB positive - MTB PCR negative COPD Hypertension History of alcohol abuse Plan: Neuro: Sedation with propofol, daily sedation vacation. Follow neuro status per protocol. Neurosurgery consulted, Dr. Garcia performed burrhole with ICP monitor placement Repeat head CT 10/17 noted. On IV thiamine/folic acid/MVI. Watch for alcohol withdrawal. Initiate CIWA protocol. Pulmonary: Continue mechanical ventilation, vent bundle, bronchodilators. Sputum sent for Gram stain and cultures, AFB culture. Sputum AFB stain positive however MTB PCR negative. Consulted pulmonary/ID for further evaluation of left upper lobe cavitary lesion. GI/liver: Consulted GI for further evaluation of upper GI bleed with severe anemia. Discussed with Dr. Pretty on 10/15. EGD done on 10/16 was negative for any active bleeding, blood clot in fundus probably from blood tracking down from pharynx, Grade A esophagitis noted. Protonix drip discontinued and placed on daily Protonix Defer to GI regarding colonoscopy as patient appears to have acute on chronic anemia as he came in with a hemoglobin of 5.5 and was hemodynamically stable. Heme: Follow CBC, Coags okay. Transfused 2 units PRBCs on 10/15. transfuse to keep hemoglobin above 7 g% provided patient maintains hemodynamic stability. ID: Follow-up blood cultures, sputum Gram stain and cultures, AFB staining and culture. UA and urine cultures. Empiric antibiotic coverage with IV ceftazidime/vancomycin/Flagyl ID consult requested for further evaluation of sepsis/pulmonary cavitary lesion. Sputum positive for AFB. MTB PCR negative Endocrine: Watch for hyperglycemia, SSI for glycemic control if needed. Prophylaxis: Protonix GTT, SCDs. No subcu heparin in view of GI bleed, subdural hemorrhage/ subarachnoid hemorrhage until cleared by neurosurgery and GI Discussed with patient's sister om 10/17 who wanted to defer bronchoscopy. Discussed with pulmonary, discussed with ID, discussed with neurosurgery. Consulted palliative care to assist with deciding goals of therapy as patient sister said that they wanted to avoid any invasive procedures however was not clear regarding which 1 of the family members would be consenting and making decisions for the patient. Condition critical Time spent on critical care excluding procedures 40 minutes
[2018-10-18 09:31] LABS: Eosinophils 1 % (0-4); Lymphocytes 7 % (9-44); Monocytes 11 % (0-8); Platelet Estimate Normal (Normal)
[2018-10-18 09:32] LABS: Platelet Morphology Normal (Normal)
[2018-10-18] MEDS: Pantoprazole Inj 40 MG Vial IV.PUSH SCH (09:40)
[2018-10-18] MEDS ORDERED: Sodium Chlor 0.9% Inj 250 ML IV.SIG SCH (10:00)
[2018-10-18 11:06] LABS: Reticulocyte Percent 5.7 % (0.4-3.0)
--- NOTE | 2018-10-18 11:25 | P.PNNS ---
Subjective Interval history: ICPs controlled, spontaneous movements Physical Exam Vital signs: Vital Signs 10/17/18 12:00 10/17/18 12:01 10/17/18 12:08 Temperature 100.2 F H 100.2 F H Pulse Rate 96 H 103 H Respiratory Rate 19 19 23 Blood Pressure 122/76 Pulse Oximetry 100 100 100 10/17/18 13:00 10/17/18 13:01 10/17/18 14:00 Temperature 100.6 F H 100.4 F H 101.3 F H Pulse Rate 110 H 110 H 109 H Respiratory Rate 23 23 22 Blood Pressure 128/81 128/81 Pulse Oximetry 100 100 99 10/17/18 14:01 10/17/18 15:39 10/17/18 15:41 Temperature 101.3 F H 101.7 F H Pulse Rate 108 H 95 H Respiratory Rate 23 18 18 Blood Pressure 132/75 Pulse Oximetry 100 100 100 10/17/18 16:00 10/17/18 16:03 10/17/18 17:00 Temperature 101.7 F H 101.7 F H 101.7 F H Pulse Rate 96 H 94 H 115 H Respiratory Rate 19 19 24 Blood Pressure 129/77 145/80 H Pulse Oximetry 100 100 100 10/17/18 17:03 10/17/18 18:00 10/17/18 18:03 Temperature 101.7 F H 100.0 F H 100.0 F H Pulse Rate 117 H 90 88 Respiratory Rate 24 16 16 Blood Pressure 145/80 H 133/75 133/75 Pulse Oximetry 100 100 100 10/17/18 19:00 10/17/18 19:03 10/17/18 19:52 Temperature 99.1 F 99.1 F Pulse Rate 96 H 96 H 94 H Respiratory Rate 23 23 22 Blood Pressure 131/79 Pulse Oximetry 100 100 100 10/17/18 20:00 10/17/18 20:03 10/17/18 21:00 Temperature 98.8 F 99.0 F 99.1 F Pulse Rate 96 H 92 H 101 H Respiratory Rate 23 22 23 Blood Pressure 140/88 Pulse Oximetry 100 100 100 10/17/18 21:03 10/17/18 22:00 10/17/18 22:03 Temperature 99.1 F 99.7 F H 99.7 F H Pulse Rate 100 H 99 H 100 H Respiratory Rate 24 23 24 Blood Pressure 146/88 H 153/91 H Pulse Oximetry 100 100 100 10/17/18 23:00 10/17/18 23:03 10/17/18 23:32 Temperature 100.2 F H 100.2 F H Pulse Rate 86 86 Respiratory Rate 15 14 16 Blood Pressure 120/76 Pulse Oximetry 100 100 100 10/18/18 00:00 10/18/18 00:03 10/18/18 01:00 Temperature 100.0 F H 100.0 F H 100.8 F H Pulse Rate 97 H 84 93 H Respiratory Rate 19 18 20 Blood Pressure 146/79 H Pulse Oximetry 100 100 100 10/18/18 01:03 10/18/18 01:04 10/18/18 02:00 Temperature 100.6 F H 100.6 F H 100.8 F H Pulse Rate 101 H 108 H 88 Respiratory Rate 28 H 46 H 20 Blood Pressure 163/103 H 149/85 H Pulse Oximetry 100 100 100 10/18/18 02:03 10/18/18 03:00 10/18/18 03:03 Temperature 100.8 F H 100.8 F H 100.8 F H Pulse Rate 89 88 90 Respiratory Rate 20 16 16 Blood Pressure 114/73 115/76 Pulse Oximetry 100 100 100 10/18/18 03:31 10/18/18 04:00 10/18/18 04:03 Temperature 101.1 F H 101.1 F H Pulse Rate 84 100 H 96 H Respiratory Rate 24 20 19 Blood Pressure 154/87 H Pulse Oximetry 100 100 100 10/18/18 05:00 10/18/18 05:03 10/18/18 06:00 Temperature 101.7 F H 101.7 F H 101.3 F H Pulse Rate 96 H 96 H 90 Respiratory Rate 16 16 18 Blood Pressure 119/74 Pulse Oximetry 100 100 100 10/18/18 06:03 10/18/18 07:00 10/18/18 07:03 Temperature 101.3 F H 100.8 F H 100.8 F H Pulse Rate 90 92 H 82 Respiratory Rate 18 18 17 Blood Pressure 133/80 119/74 119/74 Pulse Oximetry 100 100 100 10/18/18 07:43 10/18/18 08:00 10/18/18 08:03 Temperature 100.4 F H 100.4 F H Pulse Rate 91 H 82 Respiratory Rate 18 17 17 Blood Pressure 129/77 Pulse Oximetry 100 98 100 10/18/18 09:00 10/18/18 09:03 10/18/18 10:00 Temperature 99.9 F H 99.9 F H 100.4 F H Pulse Rate 85 91 H 101 H Respiratory Rate 23 23 29 H Blood Pressure 135/85 136/80 Pulse Oximetry 100 100 100 10/18/18 10:03 10/18/18 10:06 10/18/18 11:00 Temperature 100.4 F H 100.8 F H Pulse Rate 95 H 84 Respiratory Rate 23 21 19 Blood Pressure 136/80 Pulse Oximetry 100 100 100 10/18/18 11:15 Temperature Pulse Rate 87 Respiratory Rate 18 Blood Pressure Pulse Oximetry Intake & Output 10/17/18 10/18/18 10/18/18 18:59 06:59 18:59 Intake Total 806 / 806 2130.0 / 2130.0 Output Total 1600 / 1600 1850 / 1850 Balance -794 / -794 280.0 / 280.0 Weight 57.7 kg Intake: IV 806 / 806 2130.0 / 2130.0 Diprivan 1000 mg/100 ml Inj 1, 200 / 200 300 / 300 000 mg In 100 ml @ 5 MCG/KG/MIN 2.4 mls/hr IV.CONT TITRATE PRN Rx#:[id number] NS Inj 1,000 ML @ 75 mls/hr IV. 1000 / 1000 CONT .[id number] TOAN Rx#:[id number] Thiamine Inj 100 MG In NS Inj 101 / 101 100 ML @ 100 mls/hr IV.SIG DAILY TOAN Rx#:[id number] Vancomycin Inj 1,250 MG In NS 525.0 / 525.0 Inj 250 ML @ 250 mls/hr IV.SIG Q12H TOAN Rx#:[id number] Tazicef Inj 1,000 MG In NS Inj 200 / 200 100 / 100 100 ML @ 200 mls/hr IV.SIG Q8H TOAN Rx#:[id number] Keppra Inj 500 MG In NS Inj 100 105 / 105 105 / 105 ML @ 400 mls/hr IV.SIG Q12H TOAN Rx#:[id number] Flagyl 500 MG Inj 100 ML @ 100 200 / 200 100 / 100 mls/hr IV.SIG Q8H TOAN Rx#: [id number] Output: Urine Amount (Catheter) 1450 / 1450 1600 / 1600 Indwelling Urethral Catheter 1450 / 1450 1600 / 1600 Gastric Drainage 150 / 150 250 / 250 Oral 150 / 150 250 / 250 Other: # Bowel Movements 0 0 Narrative: bolt monitor in place, ICPs controlled pupils equal right periorbital ecchymosis spontaneous extremity movements but not following commands intubated - Urinary Catheter Management Indwelling Urethral Catheter Cath placed during this visit: yes Reason for continuing: Hourly intake/output Insertion date: 10/15/18 Insertion time: 14:00 Assessment and Plan - Plan 53 y/o male mild subdural hemorrhage right frontal, left tentorium, left anterior falx, left temporal, stable f/u CT Brain 10/17/18 suspected skull base fracture placement of ICP monitor 10/15/18 EEG 10/16/18 no evidence of seizures, moderate to severe encephalopathy Cervical Spine CT 10/15/18 13:26 CONCLUSION: 1. No acute fracture or subluxation. 2. Partially imaged large cavitary lesion in the left lung apex. Chest CT to follow. 3. Multilevel degenerative spondylosis of the cervical spine. Head CT 10/15/18 13:26 CONCLUSION: 1. Mild subdural hemorrhage seen at the right frontal region, left tentorium, left anterior falx, and left temporal region. The left temporal region hemorrhage could also be subarachnoid hemorrhage. 2. Suspected skull base fracture around the sphenoid sinus and at the anterior inferior aspect of the right middle cranial fossa. There appears to be air within the suprasellar cistern region. cont neuro checks in a serial fashion critical care - vent weaning ICP monitor discontinued SCDs and TEDs for dvt prophylaxis Protonix for GI prophylaxis Keppra 500mg q12 hrs for prophylaxis x 7 days
[2018-10-18 11:36] LABS: % Iron Saturation 16.9 % (20-50); Haptoglobin 240 mg/dL (30-200); Iron 18 mcg/dL (65-175); Lactate Dehydrogenase 306 U/L (87-241); Total Iron Binding Capacity 106 mcg/dL (250-450)
[2018-10-18 11:39] LABS: Ferritin 229 ng/mL (26-388)
[2018-10-18] MEDS: Sodium Chloride 0.9% 2 ML Flush BID IV.FLUSH SCH ×2 (11:41→21:44)
--- NOTE | 2018-10-18 17:52 | P.PNPAL ---
Legal was provided a copy of the POA (designating patient's aunt-Tanja) to determine if POA included healthcare decision making because it was not specified. [place] statutes require that if an individual is to have healthcare vision making, it must be especially provided for in the DPOA. Therefore, healthcare proxy decision making falls to the patient's 3 sisters (Edith, Leydi , Vira and Reji). Palliative care's met with the patient's sister (Edith) in the family conference room to clarify medical treatment goals, specifically the bronchoscopy. Palliative care was able to speak to Vira and Reji via telephone. A message was left for the fourth sister, Vira, with palliative care contact information. The 3 sisters that were reachable were in agreement that they should proceed with the bronchoscopy. Palliative care also spoke to the patient's aunt, Tanja. She understands that the POA is strictly for financial decision making; she supports the family's decision to proceed with the bronchoscopy as well. She will continue to support the patient and his family. Spoke with RN, Kimber, who will notify the physician of the family's decision.
--- NOTE | 2018-10-18 17:58 | P.PN ---
Subjective Interval history: Remains on vent support . Not responsive. ICP bolt in. On propofol. AFB +Ve on bronch culture PCR negative for MTB Physical Exam Vital signs: Vital Signs 10/17/18 18:00 10/17/18 18:03 10/17/18 19:00 Temperature 100.0 F H 100.0 F H 99.1 F Pulse Rate 90 88 96 H Respiratory Rate 16 16 23 Blood Pressure 133/75 133/75 Pulse Oximetry 100 100 100 10/17/18 19:03 10/17/18 19:52 10/17/18 20:00 Temperature 99.1 F 98.8 F Pulse Rate 96 H 94 H 96 H Respiratory Rate 23 22 23 Blood Pressure 131/79 Pulse Oximetry 100 100 100 10/17/18 20:03 10/17/18 21:00 10/17/18 21:03 Temperature 99.0 F 99.1 F 99.1 F Pulse Rate 92 H 101 H 100 H Respiratory Rate 22 23 24 Blood Pressure 140/88 146/88 H Pulse Oximetry 100 100 100 10/17/18 22:00 10/17/18 22:03 10/17/18 23:00 Temperature 99.7 F H 99.7 F H 100.2 F H Pulse Rate 99 H 100 H 86 Respiratory Rate 23 24 15 Blood Pressure 153/91 H Pulse Oximetry 100 100 100 10/17/18 23:03 10/17/18 23:32 10/18/18 00:00 Temperature 100.2 F H 100.0 F H Pulse Rate 86 97 H Respiratory Rate 14 16 19 Blood Pressure 120/76 Pulse Oximetry 100 100 100 10/18/18 00:03 10/18/18 01:00 10/18/18 01:03 Temperature 100.0 F H 100.8 F H 100.6 F H Pulse Rate 84 93 H 101 H Respiratory Rate 18 20 28 H Blood Pressure 146/79 H 163/103 H Pulse Oximetry 100 100 100 10/18/18 01:04 10/18/18 02:00 10/18/18 02:03 Temperature 100.6 F H 100.8 F H 100.8 F H Pulse Rate 108 H 88 89 Respiratory Rate 46 H 20 20 Blood Pressure 149/85 H 114/73 Pulse Oximetry 100 100 100 10/18/18 03:00 10/18/18 03:03 10/18/18 03:31 Temperature 100.8 F H 100.8 F H Pulse Rate 88 90 84 Respiratory Rate 16 16 24 Blood Pressure 115/76 Pulse Oximetry 100 100 100 10/18/18 04:00 10/18/18 04:03 10/18/18 05:00 Temperature 101.1 F H 101.1 F H 101.7 F H Pulse Rate 100 H 96 H 96 H Respiratory Rate 20 19 16 Blood Pressure 154/87 H Pulse Oximetry 100 100 100 10/18/18 05:03 10/18/18 06:00 10/18/18 06:03 Temperature 101.7 F H 101.3 F H 101.3 F H Pulse Rate 96 H 90 90 Respiratory Rate 16 18 18 Blood Pressure 119/74 133/80 Pulse Oximetry 100 100 100 10/18/18 07:00 10/18/18 07:03 10/18/18 07:43 Temperature 100.8 F H 100.8 F H Pulse Rate 92 H 82 Respiratory Rate 18 17 18 Blood Pressure 119/74 119/74 Pulse Oximetry 100 100 100 10/18/18 08:00 10/18/18 08:03 10/18/18 09:00 Temperature 100.4 F H 100.4 F H 99.9 F H Pulse Rate 91 H 82 85 Respiratory Rate 17 17 23 Blood Pressure 129/77 Pulse Oximetry 98 100 100 10/18/18 09:03 10/18/18 10:00 10/18/18 10:03 Temperature 99.9 F H 100.4 F H 100.4 F H Pulse Rate 91 H 101 H 95 H Respiratory Rate 23 29 H 23 Blood Pressure 135/85 136/80 136/80 Pulse Oximetry 100 100 100 10/18/18 10:06 10/18/18 11:00 10/18/18 11:03 Temperature 100.8 F H Pulse Rate 84 88 Respiratory Rate 21 19 18 Blood Pressure 123/79 Pulse Oximetry 100 100 100 10/18/18 11:15 10/18/18 12:00 10/18/18 12:03 Temperature 100.8 F H Pulse Rate 87 84 88 Respiratory Rate 18 18 18 Blood Pressure 140/77 140/77 Pulse Oximetry 100 100 10/18/18 13:00 10/18/18 13:03 10/18/18 13:29 Temperature 101.3 F H Pulse Rate 82 87 Respiratory Rate 16 19 20 Blood Pressure 136/76 136/76 Pulse Oximetry 100 100 100 10/18/18 14:00 10/18/18 14:03 10/18/18 14:06 Temperature 101.7 F H 100.8 F H Pulse Rate 83 85 93 H Respiratory Rate 20 19 19 Blood Pressure 125/73 125/73 125/73 Pulse Oximetry 100 100 10/18/18 15:00 10/18/18 15:03 10/18/18 15:42 Temperature 101.7 F H 100.8 F H Pulse Rate 96 H 95 H 77 Respiratory Rate 21 19 19 Blood Pressure 95/59 L 95/59 L 95/59 L Pulse Oximetry 100 100 10/18/18 15:45 10/18/18 16:00 10/18/18 16:03 Temperature 100.8 F H 100.2 F H Pulse Rate 78 81 84 Respiratory Rate 19 16 18 Blood Pressure 95/59 L 100/58 L 100/58 L Pulse Oximetry 100 100 10/18/18 16:05 Temperature Pulse Rate Respiratory Rate 17 Blood Pressure Pulse Oximetry 100 Intake & Output 10/17/18 10/18/18 10/18/18 18:59 06:59 18:59 Intake Total 806 / 806 2130.0 / 2130.0 501 / 501 Output Total 1600 / 1600 1850 / 1850 Balance -794 / -794 280.0 / 280.0 501 / 501 Weight 57.7 kg Intake: IV 806 / 806 2130.0 / 2130.0 501 / 501 Diprivan 1000 mg/100 ml Inj 1, 200 / 200 300 / 300 200 / 200 000 mg In 100 ml @ 5 MCG/KG/MIN 2.4 mls/hr IV.CONT TITRATE PRN Rx#:[id number] NS Inj 1,000 ML @ 75 mls/hr IV. 1000 / 1000 CONT .[id number] TOAN Rx#:[id number] Thiamine Inj 100 MG In NS Inj 101 / 101 101 / 101 100 ML @ 100 mls/hr IV.SIG DAILY TOAN Rx#:[id number] Vancomycin Inj 1,250 MG In NS 525.0 / 525.0 Inj 250 ML @ 250 mls/hr IV.SIG Q12H TOAN Rx#:[id number] Tazicef Inj 1,000 MG In NS Inj 200 / 200 100 / 100 100 / 100 100 ML @ 200 mls/hr IV.SIG Q8H TOAN Rx#:[id number] Keppra Inj 500 MG In NS Inj 100 105 / 105 105 / 105 ML @ 400 mls/hr IV.SIG Q12H TOAN Rx#:[id number] Flagyl 500 MG Inj 100 ML @ 100 200 / 200 100 / 100 100 / 100 mls/hr IV.SIG Q8H TOAN Rx#: [id number] Intake (Blood Product) Amt 0 / 0 Rbc As-3 Leukoreduced Unit 0 / 0 [id number] Rbc As-3 Leukoreduced Unit 0 / 0 [id number] Output: Urine Amount (Catheter) 1450 / 1450 1600 / 1600 Indwelling Urethral Catheter 1450 / 1450 1600 / 1600 Gastric Drainage 150 / 150 250 / 250 Oral 150 / 150 250 / 250 Other: # Bowel Movements 0 0 Narrative: bolt monitor in place, ICPs controlled pupils equal GENERAL: Sedated mid aged W/M on the vent. SKIN: Warm and dry. HEAD: Atraumatic. Normocephalic. EYES: Pupils equal.. No scleral icterus. No injection or drainage. ENT: No nasal bleeding or discharge. Mucous membranes pink and moist. NECK: Trachea midline. No JVD. CARDIOVASCULAR: Regular rate and rhythm. RESPIRATORY: wheeze on left . Breath sounds equal bilaterally. GASTROINTESTINAL: Abdomen soft, non-tender, nondistended. Hepatic and splenic margins not palpable. MUSCULOSKELETAL: Extremities without clubbing, cyanosis, or edema. No obvious deformities. NEUROLOGICAL: Sedated and on the vent - Urinary Catheter Management Indwelling Urethral Catheter Cath placed during this visit: yes Reason for continuing: Hourly intake/output Insertion date: 10/15/18 Insertion time: 14:00 Results - Labs CBC & Chem 7: 10/18/18 07:05 10/18/18 07:05 Laboratory Results - last 24 hr 10/18/18 10/18/18 10/18/18 07:05 07:05 07:05 WBC 16.6 H RBC 1.62 L Hgb 5.2 L* D Hct 15.0 L* MCV 92.5 MCH 32.3 MCHC 34.9 RDW 17.3 H Plt Count 346 MPV 8.4 Prelim Diff (Auto) Slide review pending Neut % (Auto) 74.5 H Lymph % (Auto) 9.8 Miller % (Auto) 13.4 H Eos % (Auto) 1.3 Baso % (Auto) 1.0 Neut # (Auto) 12.4 H Lymph # (Auto) 1.6 Miller # (Auto) 2.2 H Eos # (Auto) 0.2 Baso # (Auto) 0.2 WBC Differential Manual diff final Seg Neuts % (Manual) 76 H Band Neuts % (Manual) 5 Lymphocytes % (Manual) 7 L Monocytes % (Manual) 11 H Eosinophils % (Manual) 1 Abs Neuts (Manual) 13.4 H Differential Comment . Platelet Estimate Normal Platelet Morphology Normal ESR Retic Count Absolute Retic Haptoglobin Creatinine 0.45 L Estimated GFR Greater than 89 Iron TIBC % Saturation Ferritin Lactate Dehydrogenase Vancomycin Trough Cancelled Rheumatoid Factor Scrn Rheumatoid Factor Titer Blood Type Antibody Screen Direct Antiglob Test MTS Gel Crossmatch Bld Prod Order Comment 10/18/18 10/18/18 10/18/18 10:00 10:26 10:26 WBC RBC Hgb Hct MCV MCH MCHC RDW Plt Count MPV Prelim Diff (Auto) Neut % (Auto) Lymph % (Auto) Miller % (Auto) Eos % (Auto) Baso % (Auto) Neut # (Auto) Lymph # (Auto) Miller # (Auto) Eos # (Auto) Baso # (Auto) WBC Differential Seg Neuts % (Manual) Band Neuts % (Manual) Lymphocytes % (Manual) Monocytes % (Manual) Eosinophils % (Manual) Abs Neuts (Manual) Differential Comment Platelet Estimate Platelet Morphology ESR Greater than 140 H Retic Count 5.7 H Absolute Retic 126.8 Haptoglobin 240 H Creatinine Estimated GFR Iron 18 L TIBC 106 L % Saturation 16.9 L Ferritin 229 Lactate Dehydrogenase 306 H Vancomycin Trough Rheumatoid Factor Scrn Positive H Rheumatoid Factor Titer 300.0 H Blood Type A Positive Antibody Screen Negative Direct Antiglob Test MTS Gel Crossmatch See Detail Bld Prod Order Comment 10/18/18 10:26 WBC RBC Hgb Hct MCV MCH MCHC RDW Plt Count MPV Prelim Diff (Auto) Neut % (Auto) Lymph % (Auto) Miller % (Auto) Eos % (Auto) Baso % (Auto) Neut # (Auto) Lymph # (Auto) Miller # (Auto) Eos # (Auto) Baso # (Auto) WBC Differential Seg Neuts % (Manual) Band Neuts % (Manual) Lymphocytes % (Manual) Monocytes % (Manual) Eosinophils % (Manual) Abs Neuts (Manual) Differential Comment Platelet Estimate Platelet Morphology ESR Retic Count Absolute Retic Haptoglobin Creatinine Estimated GFR Iron TIBC % Saturation Ferritin Lactate Dehydrogenase Vancomycin Trough Rheumatoid Factor Scrn Rheumatoid Factor Titer Blood Type Antibody Screen Direct Antiglob Test Negative MTS Gel Crossmatch Bld Prod Order Comment Microbiology 10/15/18 18:59 Blood - Peripheral Aerobic Blood Culture - Preliminary No growth in 3 days 10/15/18 18:59 Blood - Peripheral Anaerobic Blood Culture - Preliminary No growth in 3 days 10/15/18 13:45 Blood - Peripheral Aerobic Blood Culture - Preliminary No growth in 3 days 10/15/18 13:45 Blood - Peripheral Anaerobic Blood Culture - Preliminary No growth in 3 days 10/15/18 17:44 Sputum - Endotracheal Gram Stain - Final 10/15/18 17:44 Sputum - Endotracheal Sputum Culture - Final Heavy growth normal respiratory munir 10/15/18 17:44 Sputum - Endotracheal Acid Fast Bacilli Smear - Final Acid Fast Bacilli Seen 10/15/18 17:44 Sputum - Endotracheal Mycobacterial Culture - Preliminary Assessment and Plan - Assessment (1) Subdural hematoma, post-traumatic Code(s): S06.5X9A - Traumatic subdural hemorrhage with loss of consciousness of unspecified duration, initial encounter Status: Acute (2) Intracerebral hemorrhage Code(s): I61.9 - Nontraumatic intracerebral hemorrhage, unspecified Status: Acute (3) COPD (chronic obstructive pulmonary disease) Code(s): J44.9 - Chronic obstructive pulmonary disease, unspecified Status: Acute (4) Cavitating mass of lung Code(s): J98.4 - Other disorders of lung Status: Acute (5) Pneumonia Code(s): J18.9 - Pneumonia, unspecified organism Status: Acute (6) GI bleed Code(s): K92.2 - Gastrointestinal hemorrhage, unspecified Status: Acute (7) Anemia Code(s): D64.9 - Anemia, unspecified Status: Acute - Plan 1. Wean vent rates and CPAP trial in am. 2. Will schedule bronchoscopy if family is agreeable. 3. Duoneb nebs qid. 4. Continue antibiotics as ordered. 5. CBC,BMP CXR in am . 6. Keep sedated for vent control 7. NG tube with feeds at 40 CC 8. Isolation till AFB Culture ID done.
[2018-10-18] MEDS: Dextrose 5%/NaCl 0.45% Inj 1,000 ML IV.CONT SCH (18:28)
[2018-10-18 18:57] LABS: Hematocrit 30.6 % (39.0-51.0); Hemoglobin 10.5 gm/dL (13.0-17.0)
--- NOTE | 2018-10-19 04:23 | XR ---
EXAM DATE: 10/19/2018 3:56 AM EST AGE/SEX: 53 years / Male INDICATIONS: Pneumonia. CLINICAL DATA: This is the patient's subsequent encounter. Patient reports that signs and symptoms h ave been present for 4 - 6 days and indicates a pain score of Nonresponsive. MEDICAL/SURGICAL HISTORY: . Chronic obstructive pulmonary disease. Hypertension. Gastrointestin al bleed. Traumatic subdural hemorrhage/subarachnoid hemorrhage with skull base fracture. Anemia. Sep sis. Pneumonia. None. COMPARISON: [facility] [place], CHEST 1V SINGLE AP, 10/17/2018. . FINDINGS: The endotracheal tube tip at the superior margin of the clavicles. NG tube courses beneath the diaphr agm. There is increased patchy consolidation left lung. There are no effusions. Right lung is clear. CONCLUSION: Increased left lung infiltrate. Electronically signed by: Nicola Guerra MD 10/19/2018 4:22 AM EST
[2018-10-19] MEDS: Propofol 1000 mg/100 ml Inj 1,000 MG/100 ML BOTTLE IV.CONT PRN ×3 (04:24→20:14)
[2018-10-19] MEDS: Sod Chloride 0.9% Inj 1,000 ML IV.CONT SCH ×3 (04:24→21:13)
[2018-10-19 05:34] LABS: Baso # (Auto) 0.1 th/mm3 (0.0-0.2); Baso % (Auto) 0.9 % (0.0-2.0); Eos # (Auto) 0.3 th/mm3 (0.0-0.4); Hematocrit 31.2 % (39.0-51.0); Hemoglobin 10.9 gm/dL (13.0-17.0); Lymph # (Auto) 1.8 th/mm3 (1.0-4.8); Lymph % (Auto) 10.9 % (9.0-44.0); Mean Corpuscular HGB Conc 34.8 % (32.0-36.0); Mean Corpuscular Hemoglobin 31.1 pg (27.0-34.0); Mean Corpuscular Volume 89.4 fL (80.0-100.0); Mean Platelet Volume 8.6 fL (7.0-11.0); Mono % (Auto) 12.1 % (0.0-8.0); Neut % (Auto) 74.1 % (16.0-70.0); Platelet Count 325 th/mm3 (150-450); Red Blood Count 3.49 mil/mm3 (4.50-5.90); Red Cell Distribution Width 16.5 % (11.6-17.2); White Blood Count 16.3 th/mm3 (4.0-11.0)
[2018-10-19] MEDS: Vancomycin Inj 1,250 MG in Sodium Chlor 0.9% Inj 250 ML IV.SIG SCH ×2 (06:46→17:37)
[2018-10-19] MEDS: Chlorhexidine Gluconate 2% 1 Pack (2 Cloths) TOPICAL SCH (06:47)
--- NOTE | 2018-10-19 09:04 | P.PNCC ---
Subjective Subjective Remarks/Hospital Course: 10/15: 53-year-old male with a medical history significant for hypertension, COPD who was found down at home, EMS was called and attempted intubation in the field for altered mental status after giving Versed and etomidate however patient had his teeth clenched and they could not intubated hence patient was bagged and brought to the ER. He was intubated in the ER and placed on mechanical ventilation. Head CT revealed left-sided small subdural hemorrhage and subarachnoid hemorrhage with skull base fracture with air around the sella. His hemoglobin came back 5.5. He was also noted to have coffee-ground material suctioned out of his NG tube. No melena or rectal bleeding noted. He was never hypotensive with systolic blood pressure in the 150s though he was tachycardic on arrival. He did spike a temperature in the ER of 101. Chest x- ray showed possible cavitary lesion in the left apex. Patient was accepted for admission by critical care medicine service after ER physician as discussed with trauma surgeon as well as Dr. Garcia from neurosurgery. When I evaluated the patient in the ER he was sedated with propofol, orally intubated on mechanical ventilation. History was obtained by reviewing records and discussion with ER physician. 10/16: Remains sedated, intubated on mechanical ventilation. Patient reportedly has significant alcohol abuse history. Currently has ICP monitor in place. ICPs not elevated overnight. Transfused 2 units PRBCs with hemoglobin increased to 9 g%. Awaiting EGD by GI today. 10/17: Remains sedated, orally intubated on mechanical ventilation. ICPs remained normal. Sputum positive for AFB sent on 10/15 on admission. MTB PCR pending. 10/18: Remains sedated, orally intubated on mechanical ventilation. ICPs remain normal. MTB PCR negative. Family deciding regarding bronchoscopy and other invasive procedures. 10/19: Remains sedated, orally intubated on mechanical ventilation. Siloam removed yesterday. Family still deciding about bronchoscopy. Objective Vital Signs / I&O: Vital Signs 10/18/18 09:03 10/18/18 10:00 10/18/18 10:03 Temperature 99.9 F H 100.4 F H 100.4 F H Pulse Rate 91 H 101 H 95 H Respiratory Rate 23 29 H 23 Blood Pressure 135/85 136/80 136/80 Pulse Oximetry 100 100 100 10/18/18 10:06 10/18/18 11:00 10/18/18 11:03 Temperature 100.8 F H Pulse Rate 84 88 Respiratory Rate 21 19 18 Blood Pressure 123/79 Pulse Oximetry 100 100 100 10/18/18 11:15 10/18/18 12:00 10/18/18 12:03 Temperature 100.8 F H Pulse Rate 87 84 88 Respiratory Rate 18 18 18 Blood Pressure 140/77 140/77 Pulse Oximetry 100 100 10/18/18 13:00 10/18/18 13:03 10/18/18 13:29 Temperature 101.3 F H Pulse Rate 82 87 Respiratory Rate 16 19 20 Blood Pressure 136/76 136/76 Pulse Oximetry 100 100 100 10/18/18 14:00 10/18/18 14:03 10/18/18 14:06 Temperature 101.7 F H 100.8 F H Pulse Rate 83 85 93 H Respiratory Rate 20 19 19 Blood Pressure 125/73 125/73 125/73 Pulse Oximetry 100 100 10/18/18 15:00 10/18/18 15:03 10/18/18 15:42 Temperature 101.7 F H 100.8 F H Pulse Rate 96 H 95 H 77 Respiratory Rate 21 19 19 Blood Pressure 95/59 L 95/59 L 95/59 L Pulse Oximetry 100 100 10/18/18 15:45 10/18/18 16:00 10/18/18 16:03 Temperature 100.8 F H 100.2 F H Pulse Rate 78 81 84 Respiratory Rate 19 16 18 Blood Pressure 95/59 L 100/58 L 100/58 L Pulse Oximetry 100 100 10/18/18 16:05 10/18/18 17:00 10/18/18 17:03 Temperature 98.8 F Pulse Rate 72 79 Respiratory Rate 17 16 20 Blood Pressure 120/73 120/73 Pulse Oximetry 100 100 99 10/18/18 18:00 10/18/18 18:03 10/18/18 19:00 Temperature 98.8 F 99.3 F Pulse Rate 75 78 72 Respiratory Rate 18 20 2 L Blood Pressure 136/86 136/86 Pulse Oximetry 100 100 100 10/18/18 19:03 10/18/18 20:00 10/18/18 20:03 Temperature 99.3 F 99.9 F H 99.9 F H Pulse Rate 85 77 78 Respiratory Rate 17 19 19 Blood Pressure 142/86 H 129/85 Pulse Oximetry 100 100 100 10/18/18 20:15 10/18/18 20:25 10/18/18 21:00 Temperature 100.8 F H Pulse Rate 84 96 H Respiratory Rate 19 19 24 Blood Pressure Pulse Oximetry 100 100 10/18/18 21:03 10/18/18 22:00 10/18/18 22:03 Temperature 100.8 F H 101.3 F H 101.1 F H Pulse Rate 97 H 97 H 98 H Respiratory Rate 24 25 H 26 H Blood Pressure 136/82 138/74 Pulse Oximetry 100 100 100 10/18/18 23:00 10/18/18 23:03 10/19/18 00:00 Temperature 101.3 F H 101.3 F H 101.7 F H Pulse Rate 91 H 93 H 89 Respiratory Rate 25 H 26 H 19 Blood Pressure 142/73 H Pulse Oximetry 100 100 100 10/19/18 00:03 10/19/18 00:39 10/19/18 01:00 Temperature 101.7 F H 100.4 F H Pulse Rate 90 73 Respiratory Rate 19 17 17 Blood Pressure 113/66 Pulse Oximetry 100 100 96 10/19/18 01:03 10/19/18 02:00 10/19/18 02:03 Temperature 100.2 F H 99.5 F 99.5 F Pulse Rate 71 71 67 Respiratory Rate 17 17 18 Blood Pressure 118/73 121/73 Pulse Oximetry 98 98 98 10/19/18 03:00 10/19/18 03:03 10/19/18 04:00 Temperature 99.0 F 99.1 F 100.0 F H Pulse Rate 77 75 74 Respiratory Rate 19 18 18 Blood Pressure 131/79 Pulse Oximetry 98 99 100 10/19/18 04:03 10/19/18 04:09 10/19/18 04:13 Temperature 100.0 F H Pulse Rate 69 79 Respiratory Rate 18 17 17 Blood Pressure 129/80 Pulse Oximetry 100 100 10/19/18 05:00 10/19/18 06:00 10/19/18 06:40 Temperature 100.2 F H 100.4 F H 100.8 F H Pulse Rate 87 73 79 Respiratory Rate 22 16 21 Blood Pressure 130/81 Pulse Oximetry 100 100 100 10/19/18 08:15 Temperature Pulse Rate Respiratory Rate 14 Blood Pressure Pulse Oximetry 100 Intake & Output 10/18/18 10/19/18 10/19/18 18:59 06:59 18:59 Intake Total 1056 / 1056 1867.5 / 1867.5 Output Total 1200 / 1200 1350 / 1350 Balance -144 / -144 517.5 / 517.5 Weight 60.5 kg Intake: IV 1056 / 1056 1867.5 / 1867.5 Diprivan 1000 mg/100 ml Inj 1, 200 / 200 300 / 300 000 mg In 100 ml @ 5 MCG/KG/MIN 2.4 mls/hr IV.CONT TITRATE PRN Rx#:[id number] NS Inj 1,000 ML @ 75 mls/hr IV. 1000 / 1000 CONT .[id number] TOAN Rx#:[id number] NS Inj 250 ML @ 15 mls/hr IV. 250 / 250 SIG ONCE TOAN Rx#:[id number] Thiamine Inj 100 MG In NS Inj 101 / 101 100 ML @ 100 mls/hr IV.SIG DAILY TOAN Rx#:[id number] Vancomycin Inj 1,250 MG In NS 262.5 / 262.5 Inj 250 ML @ 250 mls/hr IV.SIG Q12H TOAN Rx#:[id number] Tazicef Inj 1,000 MG In NS Inj 200 / 200 100 / 100 100 ML @ 200 mls/hr IV.SIG Q8H TOAN Rx#:[id number] Keppra Inj 500 MG In NS Inj 100 105 / 105 105 / 105 ML @ 400 mls/hr IV.SIG Q12H TOAN Rx#:[id number] Flagyl 500 MG Inj 100 ML @ 100 200 / 200 100 / 100 mls/hr IV.SIG Q8H TOAN Rx#: [id number] Intake (Blood Product) Amt 0 / 0 Rbc As-3 Leukoreduced Unit 0 / 0 [id number] Rbc As-3 Leukoreduced Unit 0 / 0 [id number] Output: Urine Amount (Catheter) 800 / 800 1350 / 1350 Indwelling Urethral Catheter 800 / 800 1350 / 1350 Gastric Drainage 400 / 400 Oral 400 / 400 Other: Date of Last Bowel Movement 10/19/18 # Bowel Movements 0 1 Result Diagrams: 10/19/18 04:58 10/18/18 07:05 Imaging: Impressions Chest X-Ray 10/19/18 00:00 CONCLUSION: Increased left lung infiltrate. Objective Remarks: HEENT/ Neuro: ICP monitor in place on left, sedated, Pupils 2mm bilaterally constricted, orally intubated, Pallor present, no icterus, tongue/ mucosa moist Neck: No JVD Chest/Pulm: on mech vent, good air entry bilaterally, no wheezing or crackles CVS: S1-S2 regular, no murmur GI/abdomen: soft, nontender, bowel sounds sluggish Extremities: warm bilaterally, no edema Assessment and Plan - Assessment and Plan Plan: 53-year-old male with: Encephalopathy Traumatic subdural hemorrhage/subarachnoid hemorrhage with skull base fracture Upper GI bleed Anemia-most likely acute on chronic blood loss related Sepsis Pneumonia Left upper lobe cavitary lesion-mass versus infectious versus other inflammatory process. Sputum AFB positive - MTB PCR negative COPD Hypertension History of alcohol abuse Plan: Neuro: Sedation with propofol, daily sedation vacation. Follow neuro status per protocol. Neurosurgery consulted, Dr. Garcia performed burrhole with ICP monitor placement Repeat head CT 10/17 noted. On IV thiamine/folic acid/MVI. Watch for alcohol withdrawal. Initiate CIWA protocol. Pulmonary: Continue mechanical ventilation, vent bundle, bronchodilators. Sputum sent for Gram stain and cultures, AFB culture. Sputum AFB stain positive however MTB PCR negative. Consulted pulmonary/ID for further evaluation of left upper lobe cavitary lesion. GI/liver: Consulted GI for further evaluation of upper GI bleed with severe anemia. Discussed with Dr. Pretty on 10/15. EGD done on 10/16 was negative for any active bleeding, blood clot in fundus probably from blood tracking down from pharynx, Grade A esophagitis noted. Protonix drip discontinued and placed on daily Protonix Defer to GI regarding colonoscopy as patient appears to have acute on chronic anemia as he came in with a hemoglobin of 5.5 and was hemodynamically stable. Heme: Follow CBC, Coags okay. Transfused 2 units PRBCs on 10/15. transfuse to keep hemoglobin above 7 g% provided patient maintains hemodynamic stability. ID: Follow-up blood cultures, sputum Gram stain and cultures, AFB staining and culture. UA and urine cultures. Empiric antibiotic coverage with IV ceftazidime/vancomycin/Flagyl ID consult requested for further evaluation of sepsis/pulmonary cavitary lesion. Sputum positive for AFB. MTB PCR negative Endocrine: Watch for hyperglycemia, SSI for glycemic control if needed. Prophylaxis: Protonix GTT, SCDs. No subcu heparin in view of GI bleed, subdural hemorrhage/ subarachnoid hemorrhage until cleared by neurosurgery and GI Discussed with patient's sister om 10/17 who wanted to defer bronchoscopy. Discussed with pulmonary, discussed with ID, discussed with neurosurgery. Consulted palliative care to assist with deciding goals of therapy as patient sister said that they wanted to avoid any invasive procedures however was not clear regarding which 1 of the family members would be consenting and making decisions for the patient. Condition critical Time spent on critical care excluding procedures 40 minutes
[2018-10-19] MEDS: Pantoprazole Inj 40 MG Vial IV.PUSH SCH (09:50)
[2018-10-19] MEDS: Sodium Chloride 0.9% 2 ML Flush BID IV.FLUSH SCH ×2 (09:50→21:10)
--- NOTE | 2018-10-19 14:58 | P.PNNS ---
Subjective Interval history: HD#4 10/19: 53 yo male, found down. Remains sedated, orally intubated on mechanical ventilation. [place] removed yesterday as there has been no evidence of intracranial hypertension. Family still deciding about bronchoscopy. Physical Exam Vital signs: Vital Signs 10/18/18 15:00 10/18/18 15:03 10/18/18 15:42 Temperature 101.7 F H 100.8 F H Pulse Rate 96 H 95 H 77 Respiratory Rate 21 19 19 Blood Pressure 95/59 L 95/59 L 95/59 L Pulse Oximetry 100 100 10/18/18 15:45 10/18/18 16:00 10/18/18 16:03 Temperature 100.8 F H 100.2 F H Pulse Rate 78 81 84 Respiratory Rate 19 16 18 Blood Pressure 95/59 L 100/58 L 100/58 L Pulse Oximetry 100 100 10/18/18 16:05 10/18/18 17:00 10/18/18 17:03 Temperature 98.8 F Pulse Rate 72 79 Respiratory Rate 17 16 20 Blood Pressure 120/73 120/73 Pulse Oximetry 100 100 99 10/18/18 18:00 10/18/18 18:03 10/18/18 19:00 Temperature 98.8 F 99.3 F Pulse Rate 75 78 72 Respiratory Rate 18 20 2 L Blood Pressure 136/86 136/86 Pulse Oximetry 100 100 100 10/18/18 19:03 10/18/18 20:00 10/18/18 20:03 Temperature 99.3 F 99.9 F H 99.9 F H Pulse Rate 85 77 78 Respiratory Rate 17 19 19 Blood Pressure 142/86 H 129/85 Pulse Oximetry 100 100 100 10/18/18 20:15 10/18/18 20:25 10/18/18 21:00 Temperature 100.8 F H Pulse Rate 84 96 H Respiratory Rate 19 19 24 Blood Pressure Pulse Oximetry 100 100 10/18/18 21:03 10/18/18 22:00 10/18/18 22:03 Temperature 100.8 F H 101.3 F H 101.1 F H Pulse Rate 97 H 97 H 98 H Respiratory Rate 24 25 H 26 H Blood Pressure 136/82 138/74 Pulse Oximetry 100 100 100 10/18/18 23:00 10/18/18 23:03 10/19/18 00:00 Temperature 101.3 F H 101.3 F H 101.7 F H Pulse Rate 91 H 93 H 89 Respiratory Rate 25 H 26 H 19 Blood Pressure 142/73 H Pulse Oximetry 100 100 100 10/19/18 00:03 10/19/18 00:39 10/19/18 01:00 Temperature 101.7 F H 100.4 F H Pulse Rate 90 73 Respiratory Rate 19 17 17 Blood Pressure 113/66 Pulse Oximetry 100 100 96 10/19/18 01:03 10/19/18 02:00 10/19/18 02:03 Temperature 100.2 F H 99.5 F 99.5 F Pulse Rate 71 71 67 Respiratory Rate 17 17 18 Blood Pressure 118/73 121/73 Pulse Oximetry 98 98 98 10/19/18 03:00 10/19/18 03:03 10/19/18 04:00 Temperature 99.0 F 99.1 F 100.0 F H Pulse Rate 77 75 74 Respiratory Rate 19 18 18 Blood Pressure 131/79 Pulse Oximetry 98 99 100 10/19/18 04:03 10/19/18 04:09 10/19/18 04:13 Temperature 100.0 F H Pulse Rate 69 79 Respiratory Rate 18 17 17 Blood Pressure 129/80 Pulse Oximetry 100 100 10/19/18 05:00 10/19/18 06:00 10/19/18 06:40 Temperature 100.2 F H 100.4 F H 100.8 F H Pulse Rate 87 73 79 Respiratory Rate 22 16 21 Blood Pressure 130/81 Pulse Oximetry 100 100 100 10/19/18 07:00 10/19/18 08:00 10/19/18 08:15 Temperature 100.8 F H 100.9 F H Pulse Rate 75 93 H Respiratory Rate 18 23 14 Blood Pressure Pulse Oximetry 100 100 100 10/19/18 09:00 10/19/18 09:28 10/19/18 10:00 Temperature 101.1 F H 101.3 F H 101.3 F H Pulse Rate 84 85 94 H Respiratory Rate 21 23 23 Blood Pressure 136/82 Pulse Oximetry 100 100 100 10/19/18 11:00 10/19/18 11:47 10/19/18 12:00 Temperature 101.7 F H 100.6 F H 100.2 F H Pulse Rate 98 H 77 69 Respiratory Rate 20 15 14 Blood Pressure 124/77 127/74 Pulse Oximetry 100 100 100 10/19/18 12:29 10/19/18 12:30 Temperature Pulse Rate 91 H Respiratory Rate 21 14 Blood Pressure Pulse Oximetry 100 Intake & Output 10/18/18 10/19/18 10/19/18 18:59 06:59 18:59 Intake Total 1056 / 1056 1867.5 / 1867.5 100 / 100 Output Total 1200 / 1200 1350 / 1350 Balance -144 / -144 517.5 / 517.5 100 / 100 Weight 60.5 kg Intake: IV 1056 / 1056 1867.5 / 1867.5 100 / 100 Diprivan 1000 mg/100 ml Inj 1, 200 / 200 300 / 300 100 / 100 000 mg In 100 ml @ 5 MCG/KG/MIN 2.4 mls/hr IV.CONT TITRATE PRN Rx#:[id number] NS Inj 1,000 ML @ 75 mls/hr IV. 1000 / 1000 CONT .[id number] TOAN Rx#:[id number] NS Inj 250 ML @ 15 mls/hr IV. 250 / 250 SIG ONCE TOAN Rx#:[id number] Thiamine Inj 100 MG In NS Inj 101 / 101 100 ML @ 100 mls/hr IV.SIG DAILY TOAN Rx#:[id number] Vancomycin Inj 1,250 MG In NS 262.5 / 262.5 Inj 250 ML @ 250 mls/hr IV.SIG Q12H TOAN Rx#:[id number] Tazicef Inj 1,000 MG In NS Inj 200 / 200 100 / 100 100 ML @ 200 mls/hr IV.SIG Q8H TOAN Rx#:[id number] Keppra Inj 500 MG In NS Inj 100 105 / 105 105 / 105 ML @ 400 mls/hr IV.SIG Q12H TOAN Rx#:[id number] Flagyl 500 MG Inj 100 ML @ 100 200 / 200 100 / 100 mls/hr IV.SIG Q8H TOAN Rx#: [id number] Intake (Blood Product) Amt 0 / 0 Rbc As-3 Leukoreduced Unit 0 / 0 [id number] Rbc As-3 Leukoreduced Unit 0 / 0 [id number] Output: Urine Amount (Catheter) 800 / 800 1350 / 1350 Indwelling Urethral Catheter 800 / 800 1350 / 1350 Gastric Drainage 400 / 400 Oral 400 / 400 Other: Date of Last Bowel Movement 10/19/18 # Bowel Movements 0 1 - Routine HEENT Exam Head: Present: normocephalic, abrasion, tenderness of temporal artery Eye: Present: nystagmus ENT: Present: oropharynx clear - Routine Neck Exam Present: supple, trachea midline - Routine Abdominal Exam Present: soft, normoactive bowel sounds - Routine Extremities Exam Present: pulses intact, normal capillary refill - Detailed Neurological Exam: Coma Scale Eye Opening: None Verbal Response: None Motor Response: Abnormal flexion Adiel Coma Scale Total: 5 - Routine Psychiatric Exam Present: unable to assess - Urinary Catheter Management Indwelling Urethral Catheter Cath placed during this visit: yes Urethral indwelling: Yes Reason for continuing: Hourly intake/output Insertion date: 10/15/18 Insertion time: 14:00 Assessment and Plan - Plan HD#4 53 y/o male s/p mild subdural hemorrhage right frontal, left tentorium, left anterior falx, left temporal, stable f/u CT Brain 10/17/18 skull base fracture placement of ICP monitor 10/15/18, removed yesterday due to absence of observed intracranial hypertension EEG 10/16/18 no evidence of seizures, moderate to severe encephalopathy WBC16.3 ESR>140 Cx's: NGTD Patient's clinical exam does not correlate with imaging studies. Would evaluate for encephalopathy Ammonia level? ESR 140, Tagged white cell study?? Brain MRI for prognostication
[2018-10-19] MEDS: Dextrose 5%/NaCl 0.45% Inj 1,000 ML IV.CONT SCH (21:11)
[2018-10-20] MEDS: Sod Chloride 0.9% Inj 1,000 ML IV.CONT SCH ×2 (03:44→15:48)
[2018-10-20] MEDS: Propofol 1000 mg/100 ml Inj 1,000 MG/100 ML BOTTLE IV.CONT PRN ×2 (03:45→20:41)
[2018-10-20] MEDS: Chlorhexidine Gluconate 2% 1 Pack (2 Cloths) TOPICAL SCH (03:47)
[2018-10-20 05:23] LABS: Baso # (Auto) 0.1 th/mm3 (0.0-0.2); Baso % (Auto) 0.7 % (0.0-2.0); Eos # (Auto) 0.2 th/mm3 (0.0-0.4); Eos % (Auto) 1.3 % (0.0-4.0); Hematocrit 28.8 % (39.0-51.0); Hemoglobin 10.2 gm/dL (13.0-17.0); Lymph # (Auto) 1.3 th/mm3 (1.0-4.8); Lymph % (Auto) 8.7 % (9.0-44.0); Mean Corpuscular HGB Conc 35.3 % (32.0-36.0); Mean Corpuscular Volume 87.7 fL (80.0-100.0); Mean Platelet Volume 8.2 fL (7.0-11.0); Mono # (Auto) 1.5 th/mm3 (0.0-0.9); Mono % (Auto) 10.4 % (0.0-8.0); Neut # (Auto) 11.4 th/mm3 (1.8-7.7); Neut % (Auto) 78.9 % (16.0-70.0); Platelet Count 450 th/mm3 (150-450); Red Blood Count 3.29 mil/mm3 (4.50-5.90); Red Cell Distribution Width 15.9 % (11.6-17.2); White Blood Count 14.5 th/mm3 (4.0-11.0)
[2018-10-20 05:43] LABS: Glomerular Filtration Rate Greater Than 89 mL/min (>89)
[2018-10-20] MEDS: Vancomycin Inj 1,250 MG in Sodium Chlor 0.9% Inj 250 ML IV.SIG SCH ×2 (05:44→18:05)
--- NOTE | 2018-10-20 06:49 | P.PNCC ---
Subjective Subjective Remarks/Hospital Course: 10/15: 53-year-old male with a medical history significant for hypertension, COPD who was found down at home, EMS was called and attempted intubation in the field for altered mental status after giving Versed and etomidate however patient had his teeth clenched and they could not intubated hence patient was bagged and brought to the ER. He was intubated in the ER and placed on mechanical ventilation. Head CT revealed left-sided small subdural hemorrhage and subarachnoid hemorrhage with skull base fracture with air around the sella. His hemoglobin came back 5.5. He was also noted to have coffee-ground material suctioned out of his NG tube. No melena or rectal bleeding noted. He was never hypotensive with systolic blood pressure in the 150s though he was tachycardic on arrival. He did spike a temperature in the ER of 101. Chest x- ray showed possible cavitary lesion in the left apex. Patient was accepted for admission by critical care medicine service after ER physician as discussed with trauma surgeon as well as Dr. Garcia from neurosurgery. When I evaluated the patient in the ER he was sedated with propofol, orally intubated on mechanical ventilation. History was obtained by reviewing records and discussion with ER physician. 10/16: Remains sedated, intubated on mechanical ventilation. Patient reportedly has significant alcohol abuse history. Currently has ICP monitor in place. ICPs not elevated overnight. Transfused 2 units PRBCs with hemoglobin increased to 9 g%. Awaiting EGD by GI today. 10/17: Remains sedated, orally intubated on mechanical ventilation. ICPs remained normal. Sputum positive for AFB sent on 10/15 on admission. MTB PCR pending. 10/18: Remains sedated, orally intubated on mechanical ventilation. ICPs remain normal. MTB PCR negative. Family deciding regarding bronchoscopy and other invasive procedures. 10/19: Remains sedated, orally intubated on mechanical ventilation. Point removed yesterday. Family still deciding about bronchoscopy. 10/20: Remains intubated lightly sedated with propofol. Moves lower extremities more than opposed. Do not follow commands. Family is agreeable for bronchoscopy tomorrow Objective Vital Signs / I&O: Vital Signs 10/19/18 07:00 10/19/18 08:00 10/19/18 08:15 Temperature 100.8 F H 100.9 F H Pulse Rate 75 91 H Respiratory Rate 18 23 14 Blood Pressure Pulse Oximetry 100 100 100 10/19/18 09:00 10/19/18 09:28 10/19/18 10:00 Temperature 101.1 F H 101.3 F H 101.3 F H Pulse Rate 74 85 94 H Respiratory Rate 21 23 23 Blood Pressure 136/82 Pulse Oximetry 100 100 100 10/19/18 11:00 10/19/18 11:47 10/19/18 12:00 Temperature 101.7 F H 100.6 F H 100.2 F H Pulse Rate 98 H 77 69 Respiratory Rate 20 15 14 Blood Pressure 124/77 127/74 Pulse Oximetry 100 100 100 10/19/18 12:29 10/19/18 12:30 10/19/18 13:00 Temperature 99.1 F Pulse Rate 91 H 85 Respiratory Rate 21 14 19 Blood Pressure 126/85 Pulse Oximetry 100 99 10/19/18 14:00 10/19/18 15:00 10/19/18 16:00 Temperature Pulse Rate 85 72 85 Respiratory Rate 19 17 20 Blood Pressure 132/83 129/77 142/81 H Pulse Oximetry 99 99 96 10/19/18 16:13 10/19/18 17:00 10/19/18 18:00 Temperature Pulse Rate 102 H 96 H Respiratory Rate 14 23 22 Blood Pressure 148/83 H 137/80 Pulse Oximetry 94 L 99 96 10/19/18 19:00 10/19/18 19:35 10/19/18 20:00 Temperature Pulse Rate 96 H 95 H 102 H Respiratory Rate 20 18 15 Blood Pressure 137/78 139/79 Pulse Oximetry 97 99 100 10/19/18 21:00 10/19/18 22:00 10/19/18 23:00 Temperature Pulse Rate 108 H 95 H 97 H Respiratory Rate 18 16 19 Blood Pressure 138/80 125/74 134/80 Pulse Oximetry 99 100 100 10/19/18 23:26 10/20/18 00:00 10/20/18 01:00 Temperature 99.1 F Pulse Rate 101 H 83 Respiratory Rate 16 20 14 Blood Pressure 138/80 130/73 Pulse Oximetry 100 100 100 10/20/18 02:00 10/20/18 03:00 10/20/18 03:46 Temperature Pulse Rate 96 H 95 H Respiratory Rate 18 19 14 Blood Pressure 131/77 127/76 Pulse Oximetry 100 100 100 10/20/18 04:00 10/20/18 05:00 10/20/18 06:00 Temperature 99.1 F Pulse Rate 92 H 87 73 Respiratory Rate 20 14 14 Blood Pressure 130/80 125/77 129/78 Pulse Oximetry 100 100 100 Intake & Output 10/19/18 10/19/18 10/20/18 06:59 18:59 06:59 Intake Total 1867.5 / 1867.5 2180.0 / 2180.0 2932 / 2932 Output Total 1350 / 1350 1500 / 1500 1450 / 1450 Balance 517.5 / 517.5 680.0 / 680.0 1482 / 1482 Weight 60.5 kg 57.8 kg Intake: IV 1867.5 / 1867.5 2130.0 / 2130.0 2505 / 2505 Diprivan 1000 mg/100 ml Inj 1, 300 / 300 100 / 100 200 / 200 000 mg In 100 ml @ 5 MCG/KG/MIN 2.4 mls/hr IV.CONT TITRATE PRN Rx#:[id number] NS Inj 1,000 ML @ 75 mls/hr IV. 1000 / 1000 1000 / 1000 2000 / 2000 CONT .[id number] TOAN Rx#:[id number] Vancomycin Inj 1,250 MG In NS 262.5 / 262.5 525.0 / 525.0 Inj 250 ML @ 250 mls/hr IV.SIG Q12H TOAN Rx#:[id number] Tazicef Inj 1,000 MG In NS Inj 100 / 100 200 / 200 100 / 100 100 ML @ 200 mls/hr IV.SIG Q8H TOAN Rx#:[id number] Keppra Inj 500 MG In NS Inj 100 105 / 105 105 / 105 105 / 105 ML @ 400 mls/hr IV.SIG Q12H TOAN Rx#:[id number] Flagyl 500 MG Inj 100 ML @ 100 100 / 100 200 / 200 100 / 100 mls/hr IV.SIG Q8H TOAN Rx#: [id number] Tube Feeding 20 / 20 247 / 247 Tube Irrigant 30 / 30 60 / 60 Water Bolus Amount 120 / 120 Output: Urine Amount (Catheter) 1350 / 1350 1500 / 1500 1450 / 1450 Indwelling Urethral Catheter 1350 / 1350 1500 / 1500 1450 / 1450 Gastric Drainage 0 / 0 Oral 0 / 0 Other: Date of Last Bowel Movement 10/19/18 10/19/18 10/20/18 # Bowel Movements 1 1 Result Diagrams: 10/20/18 03:45 10/20/18 03:45 Objective Remarks: GEN: Intubated sedated critically ill HEENT: Orally intubated, Pallor present, no icterus, tongue/ mucosa moist Neck: No JVD Chest/Pulm: on mech vent, good air entry bilaterally, no wheezing or crackles CVS: S1-S2 regular, no murmur GI/abdomen: soft, nontender, bowel sounds sluggish Extremities: warm bilaterally, no edema Neuro: sedated, Pupils 2mm bilaterally constricted. Moves bilateral lower extremities spontaneously and also briskly withdraws. Weak withdrawal of the upper extremities to noxious stimuli. Did not follow commands Assessment and Plan - Assessment and Plan Plan: 53-year-old male with: Encephalopathy Traumatic subdural hemorrhage/subarachnoid hemorrhage with skull base fracture Upper GI bleed Anemia-most likely acute on chronic blood loss related Sepsis Pneumonia Left upper lobe cavitary lesion-mass versus infectious versus other inflammatory process. Sputum AFB positive - MTB PCR negative COPD Hypertension History of alcohol abuse Plan: Neuro: Sedation with propofol, daily sedation vacation. Follow neuro status per protocol. Neurosurgery Dr. Garcia performed burrhole with ICP monitor placement. Now ICP monitor removed Repeat head CT 10/17 noted. On IV thiamine/folic acid/MVI. Watch for alcohol withdrawal. Check EEG, check ammonia level, check TSH Previous EEG showed moderate encephalopathy Pulmonary: Continue mechanical ventilation, vent bundle, bronchodilators. Sputum sent for Gram stain and cultures, AFB culture. Sputum AFB stain positive however MTB PCR negative. Consulted pulmonary/ID for further evaluation of left upper lobe cavitary lesion. Pulmonary Dr. Ngo following. Family agreeable for bronchoscopy tomorrow GI/liver: Consulted GI for further evaluation of upper GI bleed with severe anemia. Discussed with Dr. Pretty on 10/15. EGD done on 10/16 was negative for any active bleeding, blood clot in fundus probably from blood tracking down from pharynx, Grade A esophagitis noted. Protonix drip discontinued and placed on daily Protonix Defer to GI regarding colonoscopy as patient appears to have acute on chronic anemia as he came in with a hemoglobin of 5.5 and was hemodynamically stable. Heme: Follow CBC, Coags okay. Transfused 2 units PRBCs on 10/15. transfuse to keep hemoglobin above 7 g% provided patient maintains hemodynamic stability. ID: Follow-up blood cultures, sputum Gram stain and cultures, AFB staining and culture. UA and urine cultures. Empiric antibiotic coverage with IV ceftazidime/ vancomycin/Flagyl ID consult requested for further evaluation of sepsis/pulmonary cavitary lesion. Sputum positive for AFB. MTB PCR negative Bronch tomorrow by pulmonary Endocrine: Watch for hyperglycemia, SSI for glycemic control if needed. Prophylaxis: Protonix GTT, SCDs. No subcu heparin in view of GI bleed, subdural hemorrhage/ subarachnoid hemorrhage until cleared by neurosurgery and GI Discussed with patient's sister om 10/17 who wanted to defer bronchoscopy. Discussed with pulmonary, discussed with ID, discussed with neurosurgery. Apparently family has consented for bronch for Sunday Consulted palliative care to assist with deciding goals of therapy as patient sister said that they wanted to avoid any invasive procedures however was not clear regarding which 1 of the family members would be consenting and making decisions for the patient. Condition critical Time spent on critical care excluding procedures 35 minutes
[2018-10-20] MEDS: Sodium Chloride 0.9% 2 ML Flush BID IV.FLUSH SCH ×2 (08:20→20:24)
[2018-10-20] MEDS: Pantoprazole Inj 40 MG Vial IV.PUSH SCH (08:20)
[2018-10-20 10:25] LABS: Alanine Aminotransferase 8 U/L (12-78); Albumin 1.7 g/dL (3.4-5.0); Alkaline Phosphatase 70 U/L (45-117); Anion Gap 8 meq/L (5-15); Aspartate Aminotransferase 19 U/L (15-37); Blood Urea Nitrogen 6 mg/dL (7-18); Calcium 7.4 mg/dL (8.5-10.1); Carbon Dioxide 27.1 meq/L (21.0-32.0); Chloride 108 meq/L (98-107); Glomerular Filtration Rate Greater Than 89 mL/min (>89); Glucose,Random 143 mg/dL (74-106); Magnesium 1.8 mg/dL (1.5-2.5); Sodium 143 meq/L (136-145); Total Protein 6.3 g/dL (6.4-8.2)
[2018-10-20 10:30] LABS: Potassium 2.2 meq/L (3.5-5.1)
[2018-10-20] MEDS: Potassium Chlor 20 mEq Premix 20 MEQ/100 ML PIGGYBACK IV.SIG PRN ×3 (10:53→16:52)
--- NOTE | 2018-10-20 11:09 | P.PNNS ---
Subjective Interval history: HD#5 10/20: Remains intubated lightly sedated with propofol. Opens eyes to pain, Does not follow commands. Family is agreeable for bronchoscopy tomorrow Physical Exam Vital signs: Vital Signs 10/19/18 11:47 10/19/18 12:00 10/19/18 12:29 Temperature 100.6 F H 100.2 F H Pulse Rate 77 69 91 H Respiratory Rate 15 14 21 Blood Pressure 124/77 127/74 Pulse Oximetry 100 100 10/19/18 12:30 10/19/18 13:00 10/19/18 14:00 Temperature 99.1 F Pulse Rate 85 85 Respiratory Rate 14 19 19 Blood Pressure 126/85 132/83 Pulse Oximetry 100 99 99 10/19/18 15:00 10/19/18 16:00 10/19/18 16:13 Temperature Pulse Rate 72 85 Respiratory Rate 17 20 14 Blood Pressure 129/77 142/81 H Pulse Oximetry 99 96 94 L 10/19/18 17:00 10/19/18 18:00 10/19/18 19:00 Temperature Pulse Rate 102 H 96 H 96 H Respiratory Rate 23 22 20 Blood Pressure 148/83 H 137/80 137/78 Pulse Oximetry 99 96 97 10/19/18 19:35 10/19/18 20:00 10/19/18 21:00 Temperature Pulse Rate 95 H 102 H 108 H Respiratory Rate 18 15 18 Blood Pressure 139/79 138/80 Pulse Oximetry 99 100 99 10/19/18 22:00 10/19/18 23:00 10/19/18 23:26 Temperature Pulse Rate 95 H 97 H Respiratory Rate 16 19 16 Blood Pressure 125/74 134/80 Pulse Oximetry 100 100 100 10/20/18 00:00 10/20/18 01:00 10/20/18 02:00 Temperature 99.1 F Pulse Rate 101 H 83 96 H Respiratory Rate 20 14 18 Blood Pressure 138/80 130/73 131/77 Pulse Oximetry 100 100 100 10/20/18 03:00 10/20/18 03:46 10/20/18 04:00 Temperature 99.1 F Pulse Rate 95 H 92 H Respiratory Rate 19 14 20 Blood Pressure 127/76 130/80 Pulse Oximetry 100 100 100 10/20/18 05:00 10/20/18 06:00 10/20/18 07:00 Temperature 98.6 F Pulse Rate 87 73 88 Respiratory Rate 14 14 17 Blood Pressure 125/77 129/78 135/83 Pulse Oximetry 100 100 100 10/20/18 08:00 10/20/18 08:11 10/20/18 09:00 Temperature 98.6 F Pulse Rate 90 93 H Respiratory Rate 16 20 21 Blood Pressure 131/75 126/81 Pulse Oximetry 100 100 100 Intake & Output 10/19/18 10/20/18 10/20/18 18:59 06:59 18:59 Intake Total 2180.0 / 2180.0 3194.5 / 3194.5 200 / 200 Output Total 1500 / 1500 1450 / 1450 Balance 680.0 / 680.0 1744.5 / 1744.5 200 / 200 Weight 57.8 kg Intake: IV 2130.0 / 2130.0 2767.5 / 2767.5 200 / 200 Diprivan 1000 mg/100 ml Inj 1, 100 / 100 200 / 200 000 mg In 100 ml @ 5 MCG/KG/MIN 2.4 mls/hr IV.CONT TITRATE PRN Rx#:[id number] NS Inj 1,000 ML @ 75 mls/hr IV. 1000 / 1000 2000 / 2000 CONT .[id number] TOAN Rx#:[id number] Vancomycin Inj 1,250 MG In NS 525.0 / 525.0 262.5 / 262.5 Inj 250 ML @ 250 mls/hr IV.SIG Q12H TOAN Rx#:[id number] Tazicef Inj 1,000 MG In NS Inj 200 / 200 100 / 100 100 / 100 100 ML @ 200 mls/hr IV.SIG Q8H TOAN Rx#:[id number] Keppra Inj 500 MG In NS Inj 100 105 / 105 105 / 105 ML @ 400 mls/hr IV.SIG Q12H TOAN Rx#:[id number] Flagyl 500 MG Inj 100 ML @ 100 200 / 200 100 / 100 100 / 100 mls/hr IV.SIG Q8H TOAN Rx#: [id number] Tube Feeding 20 / 20 247 / 247 Tube Irrigant 30 / 30 60 / 60 Water Bolus Amount 120 / 120 Output: Urine Amount (Catheter) 1500 / 1500 1450 / 1450 Indwelling Urethral Catheter 1500 / 1500 1450 / 1450 Gastric Drainage 0 / 0 Oral 0 / 0 Other: Date of Last Bowel Movement 10/19/18 10/20/18 10/20/18 # Bowel Movements 1 - Constitutional no acute distress, chronically ill appearing - Routine HEENT Exam Head: Present: normocephalic, atraumatic Eye: Present: PERRL ENT: Present: mucous membranes moist, oropharynx clear - Routine Neck Exam Present: supple, full ROM - Routine Skin Exam Present: intact - Routine Neurological Exam Neuro: Off of sedation, Eye opens spontaneously Pupils react flexes on the right, extends on the left - Urinary Catheter Management Indwelling Urethral Catheter Cath placed during this visit: yes, but has since been removed by the nurse Urethral indwelling: Yes Reason for continuing: Decision to DC catheter Insertion date: 10/15/18 Insertion time: 14:00 Removal date: 10/20/18 Removal time: 09:09 Assessment and Plan - Plan HD#5 53 y/o male s/p mild subdural hemorrhage right frontal, left tentorium, left anterior falx, left temporal, stable f/u CT Brain 10/17/18 skull base fracture placement of ICP monitor 10/15/18, removed 10/18 due to absence of observed intracranial hypertension EEG 10/16/18 no evidence of seizures, moderate to severe encephalopathy WBC16.3 ESR>140 Cx's: NGTD Patient's clinical exam still does not correlate with imaging studies. Would evaluate for encephalopathy cont. present management
--- NOTE | 2018-10-20 15:01 | P.DIET ---
Nutritional Evaluation Type of nutrition evaluation: initial Nutrition consult regarding: Tube Feeding Screening comments: 10/20 TF review Objective - Diagnosis GI bleed, anemia, ICH - Objective Body Mass Index: 20.0 % IBW: 86 (IBW = 148lb) Body Weight Used for Calculations: Actual Energy Needs - Lower Range (kCal/kg): 30 Energy Needs - Upper Range (kCal/kg): 35 Lower Limit kCal/kg (kCals): 1,734 Upper Limit kCal/kg (kCals): 2,023 Lower Limit Protein Factor (Grams per Kg): 1.2 Upper Limit Protein Factor (Grams per Kg): 1.4 Lower Protein Needs (Protein): 69 Upper Protein Needs (Protein): 81 Dietitian Reviewed in Medical Record: Curent medications, Intake & Output, Labs , Medical history, Tube feeding Diet Order: TF'ing Objective Comments: PMH: HTN, s/p ORIF fx, traumatic amputation of toe Labs: K+ 2.2, random glucose 143, Ca+ 7.4 LBM 10/20, UOP 2950mL Assessment Assessment: Pt currently intubated, sedated w/ low dose propofol, and on mech vent. Pt receiving Jevity 1.5 @ 20mL/hr, w/ goal rate at 60mL/hr per MD. RD to recommend Vital 1.5 @ 50mL/hr to provide 1800kcal, 81g of protein. and 917mL of free water to best meet pts assessed needs. Additional kcal (1.1kcal/mL) provided by propofol when running. Continue to monitor TF tolerance. Labs reviewed, dietitian following. Recommendations: 1. RD to recommend Vital 1.5 @ 50mL/hr to best meet pts assessed needs 2. Additional kcal (1.1kcal/mL) provided by propofol when running 3. Continue to monitor TF tolerance 4. Dietitian following Dietitian to Monitor: Lab values, Glucose level, Intake & Output, Tube feeding tolerance, Medical course
[2018-10-20] MEDS: Dextrose 5%/NaCl 0.45% Inj 1,000 ML IV.CONT SCH (20:24)
[2018-10-21] MEDS: Potassium Chlor 20 mEq Premix 20 MEQ/100 ML PIGGYBACK IV.SIG PRN ×8 (00:36→21:23)
[2018-10-21 04:45] LABS: Alanine Aminotransferase 9 U/L (12-78); Albumin 1.7 g/dL (3.4-5.0); Alkaline Phosphatase 73 U/L (45-117); Anion Gap 7 meq/L (5-15); Aspartate Aminotransferase 24 U/L (15-37); Blood Urea Nitrogen 8 mg/dL (7-18); Calcium 7.2 mg/dL (8.5-10.1); Chloride 110 meq/L (98-107); Glomerular Filtration Rate Greater Than 89 mL/min (>89); Glucose,Random 140 mg/dL (74-106); Sodium 145 meq/L (136-145); Total Protein 6.6 g/dL (6.4-8.2)
--- NOTE | 2018-10-21 04:55 | XR ---
EXAM DATE: 10/21/2018 4:44 AM EST AGE/SEX: 53 years / Male INDICATIONS: Respiratory distress. CLINICAL DATA: This is the patient's subsequent encounter. Patient reports that signs and symptoms h ave been present for 4 - 6 days and indicates a pain score of Nonresponsive. MEDICAL/SURGICAL HISTORY: Hypertension. Chronic obstructive pulmonary disease. Subdural hemorr karen. Subarachnoid hemorrhage. Skull base fracture. . Right frontal bur hole. COMPARISON: . FINDINGS: Single AP view the chest. Endotracheal tube, nasogastric tube remain in place. Diffuse hazy left lung opacity and more focal confluent opacity in the left upper lung zone again seen. No significant inte rval change. No evidence of pleural effusion or pneumothorax. CONCLUSION: No significant interval change in left lung opacity. Electronically signed by: Laci Starr MD 10/21/2018 4:53 AM EST
[2018-10-21 05:01] LABS: Baso # (Auto) 0.1 th/mm3 (0.0-0.2); Baso % (Auto) 0.8 % (0.0-2.0); Eos # (Auto) 0.4 th/mm3 (0.0-0.4); Eos % (Auto) 2.3 % (0.0-4.0); Hematocrit 30.1 % (39.0-51.0); Hemoglobin 10.2 gm/dL (13.0-17.0); Lymph # (Auto) 1.7 th/mm3 (1.0-4.8); Lymph % (Auto) 10.1 % (9.0-44.0); Mean Corpuscular Hemoglobin 30.3 pg (27.0-34.0); Mean Platelet Volume 8.7 fL (7.0-11.0); Mono # (Auto) 1.9 th/mm3 (0.0-0.9); Mono % (Auto) 11.1 % (0.0-8.0); Neut % (Auto) 75.7 % (16.0-70.0); Platelet Count 453 th/mm3 (150-450); Red Blood Count 3.38 mil/mm3 (4.50-5.90); Red Cell Distribution Width 15.6 % (11.6-17.2); White Blood Count 17.2 th/mm3 (4.0-11.0)
[2018-10-21] MEDS ORDERED: Pharmacy Ordered Lab Info OTHER ONE ×2 (05:45→17:45)
[2018-10-21] MEDS: Sod Chloride 0.9% Inj 1,000 ML IV.CONT SCH ×2 (06:22→20:10)
[2018-10-21] MEDS: Vancomycin Inj 1,250 MG in Sodium Chlor 0.9% Inj 250 ML IV.SIG SCH (06:22)
[2018-10-21] MEDS: Sodium Chloride 0.9% 2 ML Flush BID IV.FLUSH SCH ×2 (08:37→20:10)
[2018-10-21] MEDS: Pantoprazole Inj 40 MG Vial IV.PUSH SCH (08:37)
[2018-10-21] MEDS: Propofol 1000 mg/100 ml Inj 1,000 MG/100 ML BOTTLE IV.CONT PRN (09:24)
--- NOTE | 2018-10-21 09:25 | P.PNNS ---
Subjective Interval history: intubated, opens eyes, moving spontaneously but not following commands. Physical Exam Vital signs: Vital Signs 10/20/18 10:00 10/20/18 11:00 10/20/18 11:18 Temperature Pulse Rate 106 H 105 H Respiratory Rate 27 H 31 H 22 Blood Pressure 159/92 H 171/99 H Pulse Oximetry 100 98 99 10/20/18 12:00 10/20/18 13:00 10/20/18 14:00 Temperature Pulse Rate 97 H 114 H 100 H Respiratory Rate 24 33 H 23 Blood Pressure 144/88 H 144/83 H 140/82 Pulse Oximetry 99 98 99 10/20/18 15:00 10/20/18 16:00 10/20/18 16:48 Temperature Pulse Rate 104 H 101 H Respiratory Rate 27 H 26 H 26 H Blood Pressure 152/83 H 142/87 H Pulse Oximetry 98 96 98 10/20/18 17:00 10/20/18 18:00 10/20/18 19:00 Temperature Pulse Rate 101 H 103 H 110 H Respiratory Rate 25 H 26 H 25 H Blood Pressure 126/74 129/82 148/85 H Pulse Oximetry 98 98 98 10/20/18 19:32 10/20/18 20:00 10/20/18 21:00 Temperature 101.9 F H Pulse Rate 105 H 103 H Respiratory Rate 18 18 17 Blood Pressure 135/82 129/77 Pulse Oximetry 99 99 98 10/20/18 22:00 10/20/18 23:00 10/21/18 00:00 Temperature 98.1 F Pulse Rate 104 H 98 H 86 Respiratory Rate 16 16 15 Blood Pressure 124/71 112/70 116/72 Pulse Oximetry 100 98 99 10/21/18 00:04 10/21/18 01:00 10/21/18 02:00 Temperature Pulse Rate 80 74 Respiratory Rate 15 14 14 Blood Pressure 124/76 124/82 Pulse Oximetry 100 100 100 10/21/18 03:00 10/21/18 03:41 10/21/18 04:00 Temperature 98.6 F Pulse Rate 74 79 Respiratory Rate 14 15 15 Blood Pressure 126/73 125/71 Pulse Oximetry 100 100 100 10/21/18 05:00 10/21/18 06:00 10/21/18 08:00 Temperature Pulse Rate 92 H 77 Respiratory Rate 25 H 14 22 Blood Pressure 139/81 108/68 Pulse Oximetry 100 100 100 Intake & Output 10/20/18 10/21/18 10/21/18 18:59 06:59 18:59 Intake Total 2168.1 / 2168.1 2387.5 / 2387.5 362.5 / 362.5 Output Total 1949 1200 / 1200 Balance 218.1 / 218.1 1187.5 / 1187.5 362.5 / 362.5 Weight 61 kg Intake: IV 1753.1 / 1753.1 1867.5 / 1867.5 362.5 / 362.5 Diprivan 1000 mg/100 ml Inj 1, 48.1 / 48.1 000 mg In 100 ml @ 5 MCG/KG/MIN 2.4 mls/hr IV.CONT TITRATE PRN Rx#:[id number] NS Inj 1,000 ML @ 75 mls/hr IV. 1000 / 1000 1000 / 1000 CONT .[id number] TOAN Rx#:[id number] KCl 20 mEq Premix Inj 20 meq In 200 / 200 300 / 300 100 / 100 100 ml @ 50 mls/hr IV.SIG Q2H PRN Rx#:[id number] Vancomycin Inj 1,250 MG In NS 262.5 / 262.5 262.5 / 262.5 Inj 250 ML @ 250 mls/hr IV.SIG Q12H TOAN Rx#:[id number] Tazicef Inj 1,000 MG In NS Inj 200 / 200 100 / 100 100 ML @ 200 mls/hr IV.SIG Q8H TOAN Rx#:[id number] Keppra Inj 500 MG In NS Inj 100 105 / 105 105 / 105 ML @ 400 mls/hr IV.SIG Q12H TOAN Rx#:[id number] Flagyl 500 MG Inj 100 ML @ 100 200 / 200 100 / 100 mls/hr IV.SIG Q8H TOAN Rx#: [id number] Tube Feeding 315 / 315 420 / 420 Water Bolus Amount 100 / 100 100 / 100 Output: Urine Amount (Catheter) 1949 1200 / 1200 Indwelling Urethral Catheter 1949 1200 / 1200 Gastric Drainage 0 / 0 Oral 0 / 0 Other: Date of Last Bowel Movement 10/20/18 10/20/18 # Bowel Movements 2 Narrative: intubated opens eyes but not following commands moving extremities spontaneously but not following commands bolt site with steri-strips, clean and dry pupils equal - Urinary Catheter Management Indwelling Urethral Catheter Cath placed during this visit: yes, but has since been removed by the nurse Urethral indwelling: Yes Reason for continuing: Decision to DC catheter Insertion date: 10/15/18 Insertion time: 14:00 Removal date: 10/20/18 Removal time: 09:09 Assessment and Plan - Plan 53 year old male s/p mild subdural hemorrhage right frontal, left tentorium, left anterior falx, left temporal, stable f/u CT Brain 10/17/18 skull base fracture placement of ICP monitor 10/15/18, removed 10/18 due to absence of observed intracranial hypertension EEG 10/16/18 no evidence of seizures, moderate to severe encephalopathy cont neuro checks cont critical care - vent weaning
[2018-10-21] MEDS ORDERED: fentaNYL Citrate Inj 100 MCG/2 ML Ampul ONE (12:26)
[2018-10-21] MEDS ORDERED: Lidocaine 2%/Epinephrine 1:100,000 30 ML MDV ONE (12:30)
--- NOTE | 2018-10-21 13:07 | P.PNCC ---
Subjective Subjective Remarks/Hospital Course: 10/15: 53-year-old male with a medical history significant for hypertension, COPD who was found down at home, EMS was called and attempted intubation in the field for altered mental status after giving Versed and etomidate however patient had his teeth clenched and they could not intubated hence patient was bagged and brought to the ER. He was intubated in the ER and placed on mechanical ventilation. Head CT revealed left-sided small subdural hemorrhage and subarachnoid hemorrhage with skull base fracture with air around the sella. His hemoglobin came back 5.5. He was also noted to have coffee-ground material suctioned out of his NG tube. No melena or rectal bleeding noted. He was never hypotensive with systolic blood pressure in the 150s though he was tachycardic on arrival. He did spike a temperature in the ER of 101. Chest x- ray showed possible cavitary lesion in the left apex. Patient was accepted for admission by critical care medicine service after ER physician as discussed with trauma surgeon as well as Dr. Garcia from neurosurgery. When I evaluated the patient in the ER he was sedated with propofol, orally intubated on mechanical ventilation. History was obtained by reviewing records and discussion with ER physician. 10/16: Remains sedated, intubated on mechanical ventilation. Patient reportedly has significant alcohol abuse history. Currently has ICP monitor in place. ICPs not elevated overnight. Transfused 2 units PRBCs with hemoglobin increased to 9 g%. Awaiting EGD by GI today. 10/17: Remains sedated, orally intubated on mechanical ventilation. ICPs remained normal. Sputum positive for AFB sent on 10/15 on admission. MTB PCR pending. 10/18: Remains sedated, orally intubated on mechanical ventilation. ICPs remain normal. MTB PCR negative. Family deciding regarding bronchoscopy and other invasive procedures. 10/19: Remains sedated, orally intubated on mechanical ventilation. Udell removed yesterday. Family still deciding about bronchoscopy. 10/20: Remains intubated lightly sedated with propofol. Moves lower extremities more than opposed. Do not follow commands. Family is agreeable for bronchoscopy tomorrow 10/21: Remains intubated sedated opens eyes. Did not follow commands but moves all 4 extremities. I will discontinue all current sedation and start on Precedex to facilitate vent weaning. Patient had bronchoscopy by Dr. Ngo today. No obvious mass. Right knee is warm and swollen. With low-grade fever worsening leukocytosis elevated ESR concerning for septic arthritis. Inflammatory arthritis cannot be ruled out at this time. His rheumatoid factor was also positive Objective Vital Signs / I&O: Vital Signs 10/20/18 14:00 10/20/18 15:00 10/20/18 16:00 Temperature Pulse Rate 100 H 104 H 101 H Respiratory Rate 23 27 H 26 H Blood Pressure 140/82 152/83 H 142/87 H Pulse Oximetry 99 98 96 10/20/18 16:48 10/20/18 17:00 10/20/18 18:00 Temperature Pulse Rate 101 H 103 H Respiratory Rate 26 H 25 H 26 H Blood Pressure 126/74 129/82 Pulse Oximetry 98 98 98 10/20/18 19:00 10/20/18 19:32 10/20/18 20:00 Temperature 101.9 F H Pulse Rate 110 H 105 H Respiratory Rate 25 H 18 18 Blood Pressure 148/85 H 135/82 Pulse Oximetry 98 99 99 10/20/18 21:00 10/20/18 22:00 10/20/18 23:00 Temperature Pulse Rate 103 H 104 H 98 H Respiratory Rate 17 16 16 Blood Pressure 129/77 124/71 112/70 Pulse Oximetry 98 100 98 10/21/18 00:00 10/21/18 00:04 10/21/18 01:00 Temperature 98.1 F Pulse Rate 86 80 Respiratory Rate 15 15 14 Blood Pressure 116/72 124/76 Pulse Oximetry 99 100 100 10/21/18 02:00 10/21/18 03:00 10/21/18 03:41 Temperature Pulse Rate 74 74 Respiratory Rate 14 14 15 Blood Pressure 124/82 126/73 Pulse Oximetry 100 100 100 10/21/18 04:00 10/21/18 05:00 10/21/18 06:00 Temperature 98.6 F Pulse Rate 79 92 H 77 Respiratory Rate 15 25 H 14 Blood Pressure 125/71 139/81 108/68 Pulse Oximetry 100 100 100 10/21/18 07:00 10/21/18 08:00 10/21/18 09:00 Temperature 100.2 F H 100 F H 98.8 F Pulse Rate 69 70 86 Respiratory Rate 14 14 24 Blood Pressure 118/68 131/73 121/75 Pulse Oximetry 100 100 100 12/10/18 11:11 Temperature Pulse Rate Respiratory Rate 21 Blood Pressure Pulse Oximetry 98 Intake & Output 10/20/18 10/21/18 10/21/18 18:59 06:59 18:59 Intake Total 2168.1 / 2168.1 2387.5 / 2387.5 662.5 / 662.5 Output Total 1949 1200 / 1200 Balance 218.1 / 218.1 1187.5 / 1187.5 662.5 / 662.5 Weight 61 kg Intake: IV 1753.1 / 1753.1 1867.5 / 1867.5 662.5 / 662.5 Diprivan 1000 mg/100 ml Inj 1, 48.1 / 48.1 100 / 100 000 mg In 100 ml @ 5 MCG/KG/MIN 2.4 mls/hr IV.CONT TITRATE PRN Rx#:[id number] NS Inj 1,000 ML @ 75 mls/hr IV. 1000 / 1000 1000 / 1000 CONT .[id number] TOAN Rx#:[id number] KCl 20 mEq Premix Inj 20 meq In 200 / 200 300 / 300 100 / 100 100 ml @ 50 mls/hr IV.SIG Q2H PRN Rx#:[id number] Vancomycin Inj 1,250 MG In NS 262.5 / 262.5 262.5 / 262.5 Inj 250 ML @ 250 mls/hr IV.SIG Q12H TOAN Rx#:[id number] Tazicef Inj 1,000 MG In NS Inj 200 / 200 100 / 100 100 / 100 100 ML @ 200 mls/hr IV.SIG Q8H TOAN Rx#:[id number] Keppra Inj 500 MG In NS Inj 100 105 / 105 105 / 105 ML @ 400 mls/hr IV.SIG Q12H TOAN Rx#:[id number] Flagyl 500 MG Inj 100 ML @ 100 200 / 200 100 / 100 100 / 100 mls/hr IV.SIG Q8H TOAN Rx#: [id number] Tube Feeding 315 / 315 420 / 420 Water Bolus Amount 100 / 100 100 / 100 Output: Urine Amount (Catheter) 1949 1200 / 1200 Indwelling Urethral Catheter 1949 1200 / 1200 Gastric Drainage 0 / 0 Oral 0 / 0 Other: Date of Last Bowel Movement 10/20/18 10/20/18 10/20/18 # Bowel Movements 2 Result Diagrams: 10/21/18 03:53 10/21/18 03:53 Objective Remarks: GEN: Intubated sedated critically ill HEENT: Orally intubated, Pallor present, no icterus, tongue/ mucosa moist Neck: No JVD Chest/Pulm: on mech vent, good air entry bilaterally, no wheezing or crackles CVS: S1-S2 regular, no murmur GI/abdomen: soft, nontender, bowel sounds sluggish Extremities: warm bilaterally, no edema. Right knee is warm and swollen Neuro: sedated, Pupils 2mm bilaterally constricted. Moves bilateral lower extremities spontaneously and also briskly withdraws. Weak withdrawal of the upper extremities to noxious stimuli. Did not follow commands Assessment and Plan - Assessment and Plan Plan: 53-year-old male with: Acute metabolic encephalopathy Traumatic subdural hemorrhage/subarachnoid hemorrhage with skull base fracture Upper GI bleed Anemia-most likely acute on chronic blood loss related Acute respiratory failure Sepsis Pneumonia Left upper lobe cavitary lesion-mass versus infectious versus other inflammatory process. Sputum AFB positive - MTB PCR negative Right knee swelling differential septic arthritis versus inflammatory arthritis Positive rheumatoid factor COPD Hypertension History of alcohol abuse Plan: Neuro: Discontinue all sedation and CIWA Precedex to facilitate ventilator weaning Neurosurgery Dr. Garcia performed burrhole with ICP monitor placement. Now ICP monitor removed Repeat head CT 10/17 noted. On IV thiamine/folic acid/MVI. Watch for alcohol withdrawal. Check EEG, ammonia TSH normal Previous EEG showed moderate encephalopathy Pulmonary: Continue mechanical ventilation, vent bundle, bronchodilators. Sputum AFB stain positive however MTB PCR negative. Consulted pulmonary/ID for further evaluation of left upper lobe cavitary lesion. Pulmonary Dr. Ngo following. Bronchoscopy today showed inflammation no obvious mass GI/liver: Consulted GI for further evaluation of upper GI bleed with severe anemia. Discussed with Dr. Pretty on 10/15. EGD done on 10/16 was negative for any active bleeding, blood clot in fundus probably from blood tracking down from pharynx, Grade A esophagitis noted. Protonix drip discontinued and placed on daily Protonix Defer to GI regarding colonoscopy as patient appears to have acute on chronic anemia as he came in with a hemoglobin of 5.5 and was hemodynamically stable. Heme: Follow CBC, Coags okay. Transfused 2 units PRBCs on 12/4. transfuse to keep hemoglobin above 7 g% provided patient maintains hemodynamic stability. ID/MSK: Continue empiric antibiotic coverage with IV ceftazidime/vancomycin/Flagyl. Repeat blood culture Patient has right knee swelling with warmth concerning for septic arthritis versus inflammatory arthritis Discussed with ID. Check right knee x-ray, CRP, sed rate, pro-calcitonin, uric acid Rheumatoid factor positive, elevated sed rate but without further history hard to confirm rheumatoid arthritis Synovial fluid aspiration by IR, fluid studies including crystals and culture ordered Sputum positive for AFB. MTB PCR negative s/p Bronch 10/21 by pulmonary Endocrine: Watch for hyperglycemia, SSI for glycemic control if needed. Prophylaxis: Protonix SCDs. No subcu heparin in view of GI bleed, subdural hemorrhage/ subarachnoid hemorrhage until cleared by neurosurgery and GI Palliative care following Condition critical Time spent on critical care excluding procedures 35 minutes
--- NOTE | 2018-10-21 13:12 | P.PNPAL ---
Reason for Visit Reason for visit: a. To assist with evaluation and management of symptoms including: Pain, dyspnea b. To assist medical decision maker(s) with: better understanding of current medical conditions; weighing benefits/burdens of medical treatment options; making medical treatment decisions. Subjective Subjective/Interval History: This is a 53-year-old male who presented as a trauma alert secondary to fall. He was found down at home. EMS attempted to obtain an airway in the field due to his altered mental status however patient was clenching his teeth after being given Versed and etomidate. Upon arrival to the ED he was noted to have a GCS of 8 and was intubated for airway protection. He also had NG tube placed with large amount of coffee-ground gastric drainage returned. He was noted to have a hemoglobin of 5.5. Family reporting long history of alcohol and substance abuse. Patient was reportedly drinking an average of a 12 pack of beer a day. He was admitted to the site auditor, neurosurgery was consulted for intracranial hemorrhage, GI was consulted for upper GI bleed, urology was consulted due to bladder wall thickening and renal calculi, pulmonology was consulted for lung mass finding, infectious disease was consulted for AFB positive sputum cultures. Patient had ICP monitor placed, ICPs have been stable. Hemoglobin improved with 2 units of RBCs to 9.2 but is now downtrending to 7.8. ABGs essentially unchanged aside from slight improvement and hemoglobin. Initial ED course: * Brain CT: 1. Mild subdural hemorrhage seen at the right frontal region, left tentorium, left anterior falx, and left temporal region. The left temporal region hemorrhage could also be subarachnoid hemorrhage.2. Suspected skull base fracture around the sphenoid sinus and at the anterior inferior aspect of the right middle cranial fossa. There appears to be air within the suprasellar cistern region. * Cervical spine CT: No acute fracture or subluxation. Degenerative spondylolysis. Partial image of large cavitary lesion of the left lung apex * Chest CT: 1. Prominent cavitary mass along the anterior lateral left upper lung. This could be inflammatory/infectious versus neoplastic. It is nonspecific. 2. Patchy areas of consolidation seen at the posterior left lower lung with some lesser degree of cavitary change. This most closely resembles postinflammatory change although is nonspecific. 3. Small nodules measuring less than 5 mm at the anterior left lower lung and at the right middle lobe. These are nonspecific. They can be followed. 4. Significant adenopathy is not seen. * Abdomen CT: 1. Extensive wall thickening urinary bladder, neoplastic process should be excluded. 2. Diverticulosis without diverticulitis. 3. Bilateral nonobstructing renal calculi. 4. Left basilar infiltrate. * Sputum culture: Positive for AFB * Labs: WBC 20.6, hemoglobin 5.5, hematocrit 17.1, sodium 140, potassium 3.9, chloride 107, carbon dioxide 23.2, BUN 27, creatinine 0.76, GFR greater than 89 , glucose 175, calcium 6.9, AST/ALT 50/18, alkaline phosphatase 74, troponin less than 0.02, protein 6.5, albumin 2.2, lactic acid 4.5. * ABG: PH 7.5, CO2 32, PO2 44, bicarb 24, hemoglobin 6.5 * Urine tox screen: Positive for amphetamines, benzodiazepines, cannabinoids, alcohol less than 3 Additional history: * EEG 10/16: Consistent with moderate to severe encephalopathy * Carotid Doppler study 10/16: Negative study * 2D echo 10/16: EF 55-60% * Follow-up brain CT 10/17/18 was stable Patient remains critically ill in the ICU. Remains intubated and sedated, just underwent bronchoscopy at bedside. Still not following commands, but appears to be having more purposeful movement. ICP monitor has been removed. Bulb Brander likely to medically extubate in the coming days. WBCs trending up, 17.2 today, hemoglobin remained stable at 10.2, potassium 3.0, chloride 110, BUN /creatinine 8/0.61, glucose 140, calcium 7.2, albumin 1.7. No family at bedside to update. Objective Vital Signs: Vital Signs 10/20/18 13:00 10/20/18 14:00 10/20/18 15:00 Temperature Pulse Rate 114 H 100 H 104 H Respiratory Rate 33 H 23 27 H Blood Pressure 144/83 H 140/82 152/83 H Pulse Oximetry 98 99 98 10/20/18 16:00 10/20/18 16:48 10/20/18 17:00 Temperature Pulse Rate 101 H 101 H Respiratory Rate 26 H 26 H 25 H Blood Pressure 142/87 H 126/74 Pulse Oximetry 96 98 98 10/20/18 18:00 10/20/18 19:00 12/09/18 19:32 Temperature Pulse Rate 103 H 110 H Respiratory Rate 26 H 25 H 18 Blood Pressure 129/82 148/85 H Pulse Oximetry 98 98 99 10/20/18 20:00 10/20/18 21:00 10/20/18 22:00 Temperature 101.9 F H Pulse Rate 105 H 103 H 104 H Respiratory Rate 18 17 16 Blood Pressure 135/82 129/77 124/71 Pulse Oximetry 99 98 100 10/20/18 23:00 10/21/18 00:00 10/21/18 00:04 Temperature 98.1 F Pulse Rate 98 H 86 Respiratory Rate 16 15 15 Blood Pressure 112/70 116/72 Pulse Oximetry 98 99 100 10/21/18 01:00 10/21/18 02:00 10/21/18 03:00 Temperature Pulse Rate 80 74 74 Respiratory Rate 14 14 14 Blood Pressure 124/76 124/82 126/73 Pulse Oximetry 100 100 100 10/21/18 03:41 10/21/18 04:00 10/21/18 05:00 Temperature 98.6 F Pulse Rate 79 92 H Respiratory Rate 15 15 25 H Blood Pressure 125/71 139/81 Pulse Oximetry 100 100 100 10/21/18 06:00 10/21/18 07:00 10/21/18 08:00 Temperature 100.2 F H 100 F H Pulse Rate 77 69 70 Respiratory Rate 14 14 14 Blood Pressure 108/68 118/68 131/73 Pulse Oximetry 100 100 100 10/21/18 09:00 10/21/18 11:11 Temperature 98.8 F Pulse Rate 86 Respiratory Rate 24 21 Blood Pressure 121/75 Pulse Oximetry 100 98 Intake & Output 10/20/18 10/21/18 10/21/18 18:59 06:59 18:59 Intake Total 2168.1 / 2168.1 2387.5 / 2387.5 662.5 / 662.5 Output Total 1950 / 1950 1200 / 1200 Balance 218.1 / 218.1 1187.5 / 1187.5 662.5 / 662.5 Weight 61 kg Intake: IV 1753.1 / 1753.1 1867.5 / 1867.5 662.5 / 662.5 Diprivan 1000 mg/100 ml Inj 1, 48.1 / 48.1 100 / 100 000 mg In 100 ml @ 5 MCG/KG/MIN 2.4 mls/hr IV.CONT TITRATE PRN Rx#:[id number] NS Inj 1,000 ML @ 75 mls/hr IV. 1000 / 1000 1000 / 1000 CONT .[id number] TOAN Rx#:[id number] KCl 20 mEq Premix Inj 20 meq In 200 / 200 300 / 300 100 / 100 100 ml @ 50 mls/hr IV.SIG Q2H PRN Rx#:[id number] Vancomycin Inj 1,250 MG In NS 262.5 / 262.5 262.5 / 262.5 Inj 250 ML @ 250 mls/hr IV.SIG Q12H TOAN Rx#:[id number] Tazicef Inj 1,000 MG In NS Inj 200 / 200 100 / 100 100 / 100 100 ML @ 200 mls/hr IV.SIG Q8H TOAN Rx#:[id number] Keppra Inj 500 MG In NS Inj 100 105 / 105 105 / 105 ML @ 400 mls/hr IV.SIG Q12H TOAN Rx#:[id number] Flagyl 500 MG Inj 100 ML @ 100 200 / 200 100 / 100 100 / 100 mls/hr IV.SIG Q8H TOAN Rx#: [id number] Tube Feeding 315 / 315 420 / 420 Water Bolus Amount 100 / 100 100 / 100 Output: Urine Amount (Catheter) 1949 1200 / 1200 Indwelling Urethral Catheter 1949 1200 / 1200 Gastric Drainage 0 / 0 Oral 0 / 0 Other: Date of Last Bowel Movement 10/20/18 10/20/18 10/20/18 # Bowel Movements 2 Physical Exam: CONSTITUTIONAL/GENERAL: Cachectic male who is mechanically intubated and sedated. TUBES/LINES/DRAINS: ET tube, OG tube, gardiner, peripheral IV SKIN: Right periorbital ecchymosis, multiple scars bilateral upper extremities multiple lesions in different stages of healing bilateral upper extremities EYES: Unable to assess pupils, patient squeezes eyes tightly and rolls eyes up during exam. ENT: Unable to assess due to ET tube CARDIOVASCULAR: Regular rate and rhythm without murmurs, gallops, or rubs. No JVD. Peripheral pulses symmetric. RESPIRATORY/CHEST: Mechanically ventilated, lungs clear GASTROINTESTINAL: Abdomen soft, non-tender, nondistended. No hepato-splenomegaly , or palpable masses. OG tube clamped. GENITOURINARY: Without palpable bladder distension. Gardiner catheter in place. MUSCULOSKELETAL: Moving all extremities spontaneously only, sedated NEUROLOGICAL: Sedated. Does not follow commands PSYCHIATRIC: Intermittently restless with sedation Diagnostic Tests Laboratory: Laboratory Results - last 72 hr 10/18/18 10/18/18 10/18/18 10:26 10:26 18:33 WBC RBC Hgb Hct MCV MCH MCHC RDW Plt Count MPV Prelim Diff (Auto) Neut % (Auto) Lymph % (Auto) [place] % (Auto) Eos % (Auto) Baso % (Auto) Neut # (Auto) Lymph # (Auto) [place] # (Auto) Eos # (Auto) Baso # (Auto) WBC Differential Diff Scan Differential Comment Platelet Morphology Sodium Potassium Chloride Carbon Dioxide Anion Gap BUN Creatinine Estimated GFR Random Glucose Calcium Calcium Adj for Albumin Magnesium Total Bilirubin AST ALT Alkaline Phosphatase Ammonia Total Protein Albumin TSH Vancomycin Trough 12.3 H ELLY Screen Neg Blood Type A Positive Antibody Screen Negative MTS Gel Crossmatch See Detail Bld Prod Order Comment 10/18/18 10/19/18 10/19/18 18:33 04:58 04:58 WBC 16.3 H RBC 3.49 L Hgb 10.5 L D 10.9 L Hct 30.6 L 31.2 L MCV 89.4 MCH 31.1 MCHC 34.8 RDW 16.5 Plt Count 325 MPV 8.6 Prelim Diff (Auto) Neut % (Auto) 74.1 H Lymph % (Auto) 10.9 [place] % (Auto) 12.1 H Eos % (Auto) 2.0 Baso % (Auto) 0.9 Neut # (Auto) 12.0 H Lymph # (Auto) 1.8 [place] # (Auto) 2.0 H Eos # (Auto) 0.3 Baso # (Auto) 0.1 WBC Differential . Diff Scan Differential Comment Auto diff final Platelet Morphology Sodium Potassium Chloride Carbon Dioxide Anion Gap BUN Creatinine Estimated GFR Random Glucose Calcium Calcium Adj for Albumin Magnesium Total Bilirubin AST ALT Alkaline Phosphatase Ammonia Total Protein Albumin TSH Vancomycin Trough 14.8 H ELLY Screen Blood Type Antibody Screen MTS Gel Crossmatch Bld Prod Order Comment 10/20/18 10/20/18 10/20/18 03:45 03:45 09:20 WBC 14.5 H RBC 3.29 L Hgb 10.2 L Hct 28.8 L MCV 87.7 MCH 31.0 MCHC 35.3 RDW 15.9 Plt Count 450 D MPV 8.2 Prelim Diff (Auto) Neut % (Auto) 78.9 H Lymph % (Auto) 8.7 L [place] % (Auto) 10.4 H Eos % (Auto) 1.3 Baso % (Auto) 0.7 Neut # (Auto) 11.4 H Lymph # (Auto) 1.3 [place] # (Auto) 1.5 H Eos # (Auto) 0.2 Baso # (Auto) 0.1 WBC Differential . Diff Scan Differential Comment Auto diff final Platelet Morphology Sodium 143 Potassium 2.2 L* Chloride 108 H Carbon Dioxide 27.1 Anion Gap 8 BUN 6 L Creatinine 0.60 0.58 L Estimated GFR Greater than 89 Greater than 89 Random Glucose 143 H Calcium 7.4 L* Calcium Adj for Albumin 9.2 Magnesium 1.8 Total Bilirubin 0.5 AST 19 ALT 8 L Alkaline Phosphatase 70 Ammonia Total Protein 6.3 L Albumin 1.7 L TSH 1.200 Vancomycin Trough ELLY Screen Blood Type Antibody Screen MTS Gel Crossmatch Bld Prod Order Comment 10/20/18 10/20/18 10/20/18 09:20 09:20 09:20 WBC RBC Hgb Hct MCV MCH MCHC RDW Plt Count MPV Prelim Diff (Auto) Neut % (Auto) Lymph % (Auto) [place] % (Auto) Eos % (Auto) Baso % (Auto) Neut # (Auto) Lymph # (Auto) [place] # (Auto) Eos # (Auto) Baso # (Auto) WBC Differential Diff Scan Differential Comment Platelet Morphology Sodium Potassium Chloride Carbon Dioxide Anion Gap BUN Creatinine Estimated GFR Random Glucose Calcium Calcium Adj for Albumin Magnesium Cancelled Total Bilirubin AST ALT Alkaline Phosphatase Ammonia 26 Total Protein Albumin TSH Cancelled Vancomycin Trough ELLY Screen Blood Type Antibody Screen MTS Gel Crossmatch Bld Prod Order Comment 10/20/18 10/21/18 10/21/18 23:36 03:53 03:53 WBC 17.2 H RBC 3.38 L Hgb 10.2 L Hct 30.1 L MCV 89.0 MCH 30.3 MCHC 34.0 RDW 15.6 Plt Count 453 H MPV 8.7 Prelim Diff (Auto) Slide review pending Neut % (Auto) 75.7 H Lymph % (Auto) 10.1 [place] % (Auto) 11.1 H Eos % (Auto) 2.3 Baso % (Auto) 0.8 Neut # (Auto) 13.0 H Lymph # (Auto) 1.7 [place] # (Auto) 1.9 H Eos # (Auto) 0.4 Baso # (Auto) 0.1 WBC Differential . Diff Scan Auto diff confirmed Differential Comment . Platelet Morphology Enlarged H Sodium 145 Potassium 2.2 L* 3.0 L D Chloride 110 H Carbon Dioxide 28.0 Anion Gap 7 BUN 8 Creatinine 0.61 Estimated GFR Greater than 89 Random Glucose 140 H Calcium 7.2 L* Calcium Adj for Albumin 9.0 Magnesium 2.0 Total Bilirubin 0.3 AST 24 ALT 9 L Alkaline Phosphatase 73 Ammonia Total Protein 6.6 Albumin 1.7 L TSH Vancomycin Trough ELLY Screen Blood Type Antibody Screen MTS Gel Crossmatch Bld Prod Order Comment Result Diagrams: 10/21/18 03:53 10/21/18 03:53 Microbiology: Microbiology 10/18/18 07:05 Aerobic Blood Culture - Preliminary Blood - Peripheral No growth in 3 days Anaerobic Blood Culture - Preliminary No growth in 3 days 10/18/18 07:55 Aerobic Blood Culture - Preliminary Blood - Peripheral No growth in 3 days Anaerobic Blood Culture - Preliminary No growth in 3 days 10/15/18 18:59 Aerobic Blood Culture - Final Blood - Peripheral No growth in 5 days Anaerobic Blood Culture - Final No growth in 5 days 10/15/18 13:45 Aerobic Blood Culture - Final Blood - Peripheral No growth in 5 days Anaerobic Blood Culture - Final No growth in 5 days 10/15/18 17:44 Gram Stain - Final Sputum - Endotracheal Sputum Culture - Final Heavy growth normal respiratory munir Imaging: Impressions Chest X-Ray 10/21/18 06:00 CONCLUSION: No significant interval change in left lung opacity. Procedures: 10/15/18: Intubated, bolt placed 10/16/18: EEG, no evidence of seizures 10/18/18: Both removed 10/21/18: Bronchoscopy Assessment and Plan - Symptom Scale (1) Anxiety 0-10 Scale: Unable to quantify (2) Dyspnea 0-10 Scale: Unable to quantify (3) Pain 0-10 Scale: Unable to quantify (4) Confusion 0-10 Scale: Unable to quantify Pertinent Non-Medical Issues: Psychosocial: Patient was living independently with a roommate prior to history of alcohol and substance abuse. He has been incarcerated several times. Spiritual: Manager Photo available. Legal: Patient is currently not capacitated to make his own decisions. Per legal , POA paperwork previously produced not valid for healthcare decisions. Per [place] statutes, decision making falls to the majority of patients 4 sisters. Ethical issues impacting care: None Important Contacts: IGANCARLO Agrawal [phone] Sister Edith [phone] Sister Leydi ([facility]) [phone] Sister Vira [phone] ([place]) Sister Reji [phone] ([place]) Prognosis: Given long history of alcohol and substance abuse patient at risk for setbacks. Withdrawal may also contribute to worsening of intracranial hemorrhage and/or respiratory status. Patient likely will survive this hospitalization though may have residual cognitive and functional deficits. Code Status: Full Code Plan: Legal decision maker: Patient is currently not capacitated to make his own decisions.Per legal, POA paperwork previously produced not valid for healthcare decisions. Per [place] statutes, decision making falls to the majority of patients 4 sisters. Goals: Goals remain aggressive at this time. Family seems to be having difficulty understanding nature of invasive procedures, allowing some but questioning others. Need to continue to reexplore in the coming days. Family now agreeable to bronchoscopy planned for today. CODE STATUS: FULL CODE SYMPTOMS: --Dyspnea: Currently mechanically ventilated. Has long history of positive AFB cultures. At risk for respiratory failure post extubation secondary to alcohol withdrawal. May likely be medically extubated in the coming days. Had bronchoscopy today, no lung mass found. --Anxiety: Currently sedated. At risk for anxiety secondary to hospitalization , alcohol withdrawal, and neuro status. Has withdrawal protocol and Haldol in place. Will need to continue to monitor closely in the coming days. Palliative care will continue to follow during hospital course as condition evolves, to assist patient/decision-maker with understanding of medical conditions, weighing benefits/burdens of treatment options, for clarification of goals of treatment. Additionally will assist with any symptoms of palliative concern
--- NOTE | 2018-10-21 13:14 | MP ---
cc: Sebas Parisi MD DATE OF OPERATION: 10/21/2018 PROCEDURE: Fiberoptic bronchoscopy with brushings, washings and lavage. PREOPERATIVE DIAGNOSIS: Left upper lobe cavitary lesion. POSTOPERATIVE DIAGNOSIS: Left upper lobe cavitary lesion. ANESTHESIA: IV propofol and fentanyl 50 mg. INDICATIONS: The patient on ventilator support with an endotracheal tube in place. SURGEON: Dr. Parisi PROCEDURE AND FINDINGS: The patient was on ventilator support and had a #[address] The Olympus IT 180 bronchoscope was used to visualize the bronchi. The scope was advanced through the endotracheal tube into the trachea. Trachea and sterling appeared normal. The scope was then advanced into the right mainstem and right upper lobe segmental bronchi. These bronchi demonstrated no gross endobronchial lesions. There were mucoid secretions, which were suctioned out. Next, the scope was advanced towards the right middle and right lower lobe segmental bronchi. These bronchi demonstrated mild endobronchitis with mucoid secretions and mucous plugs. These were suctioned out. Saline washings and lavage were done. No endobronchial masses were seen here. The scope was then advanced towards the left mainstem and left upper lobe segmental bronchi. The left upper lobe segmental bronchi demonstrated mucosal edema and bridging with moderate endobronchitis, but no endobronchial mass was seen. There were mucoid secretions noted from the upper lobe bronchi and these were suctioned out. Brushings were done for cytology and for micro and saline washings and lavage were done from here. No definite mass or bleeding was observed. Next, the scope was advanced to the left lower lobe segmental bronchi, which demonstrated few mucoid secretions and moderate endobronchitis but no endobronchial lesions were seen. Saline washings were done and the procedure was then terminated. The patient tolerated the procedure well. Sebas Parisi MD VJD/sylvain , 12:47 PM , 12:55 PM
[2018-10-21] MEDS ORDERED: fentaNYL Citrate Inj 100 MCG/2 ML Ampul IV.PUSH ONE (13:45)
--- NOTE | 2018-10-21 14:23 | XR ---
EXAM DATE: 10/21/2018 2:09 PM EST AGE/SEX: 53 years / Male INDICATIONS: Right lower leg inflammation. CLINICAL DATA: This is the patient's initial encounter. Patient reports that signs and symptoms have been present for 1 day and indicates a pain score of Nonresponsive. MEDICAL/SURGICAL HISTORY: Non-responsive. Non-responsive. COMPARISON: No prior exams available for comparison. FINDINGS: Limited AP and lateral views the right knee were obtained and demonstrate remote postsurgical changes with multiple lag type screws extending across the proximal tibia. There is chronic appearing irregu larity along the superior pole of the patella with apparent ossification. There is adjacent is mild s oft tissue prominence. The medial and lateral compartments are preserved with minimal sclerosis. CONCLUSION: 1. Chronic irregularity of the superior pole along the patella with apparent ossification. There is adjacent mild soft tissue prominence. 2. Remote postsurgical changes in the proximal tibia. Electronically signed by: Jhonny Mahmood MD 10/21/2018 2:22 PM EST
[2018-10-21] MEDS: Dexmedetomidine Inj 200 MCG in Sodium Chlor 0.9% Inj 48 ML IV.CONT PRN ×2 (15:35→21:23)
--- NOTE | 2018-10-21 16:21 | P.PNID ---
Subjective Remarks: ID Julio Cesar for Chart reviewed. is a 53-year-old white male, who was brought to the emergency department in an unresponsive state. The patient was noted to have a skull fracture and a subdural hemorrhage at the right frontal region. He was intubated. He was taken to surgery, and underwent bur hole with evacuation of subarachnoid and subdural hemorrhage. The patient is unresponsive on the ventilator. Information is obtained from the medical record. No history is available at this time. The patient had elevated temperature of 102 on admission. Temperatures today have decreased, and are in normal range; however , it was elevated most of yesterday evening. White blood cell count is elevated at 20.3. Chest x-ray showed ill-defined parenchymal and pleural opacity in the left upper lobe. CT scan of the chest shows a prominent cavitary mass along the left anterolateral upper lung, and also patchy areas of consolidation at the posterior left lower lobe with some lesser degree of cavitary change. Small nodules measuring less than 5 mm were seen at the anterior left lower lobe, and at the right middle lobe. Sputum culture is pending. Sputum AFB is pending. Blood culture is pending. Urine culture is pending. Urinalysis revealed 14 white cells and moderate leukocyte esterase. The patient is currently unresponsive on the ventilator. ID following for lung cavity concern for abscess vs TB or atypical mycobacteria. dw POA Past history of multiple incarcerations. ? Positive PPD. Overnight events reviewed No fever no rash No diarrhea Antibiotics: Ceftaz IV Vanco IV Flagyl IV Lines: Lines ok Past Medical History: reviewed Allergies/Adverse Reactions: Allergies lisinopril Allergy (Intermediate, Verified 10/15/18 13:39) hallucinations amlodipine Allergy (Unknown, Verified 10/15/18 13:38) headaches Objective Vital Signs 10/20/18 16:48 10/20/18 17:00 10/20/18 18:00 Temperature Pulse Rate 101 H 103 H Respiratory Rate 26 H 25 H 26 H Blood Pressure 126/74 129/82 Pulse Oximetry 98 98 98 10/20/18 19:00 10/20/18 19:32 10/20/18 20:00 Temperature 101.9 F H Pulse Rate 110 H 105 H Respiratory Rate 25 H 18 18 Blood Pressure 148/85 H 135/82 Pulse Oximetry 98 99 99 10/20/18 21:00 10/20/18 22:00 10/20/18 23:00 Temperature Pulse Rate 103 H 104 H 98 H Respiratory Rate 17 16 16 Blood Pressure 129/77 124/71 112/70 Pulse Oximetry 98 100 98 10/21/18 00:00 10/21/18 00:04 10/21/18 01:00 Temperature 98.1 F Pulse Rate 86 80 Respiratory Rate 15 15 14 Blood Pressure 116/72 124/76 Pulse Oximetry 99 100 100 10/21/18 02:00 10/21/18 03:00 10/21/18 03:41 Temperature Pulse Rate 74 74 Respiratory Rate 14 14 15 Blood Pressure 124/82 126/73 Pulse Oximetry 100 100 100 10/21/18 04:00 10/21/18 05:00 10/21/18 06:00 Temperature 98.6 F Pulse Rate 79 92 H 77 Respiratory Rate 15 25 H 14 Blood Pressure 125/71 139/81 108/68 Pulse Oximetry 100 100 100 10/21/18 07:00 10/21/18 08:00 10/21/18 09:00 Temperature 100.2 F H 100 F H 98.8 F Pulse Rate 69 70 86 Respiratory Rate 14 14 24 Blood Pressure 118/68 131/73 121/75 Pulse Oximetry 100 100 100 10/21/18 10:00 10/21/18 11:00 10/21/18 11:11 Temperature 98.8 F 98.8 F Pulse Rate 89 95 H Respiratory Rate 25 H 27 H 21 Blood Pressure 132/78 132/74 Pulse Oximetry 100 98 98 10/21/18 12:28 10/21/18 12:29 10/21/18 12:30 Temperature Pulse Rate 73 86 85 Respiratory Rate 21 24 24 Blood Pressure 120/81 163/86 H 203/115 H Pulse Oximetry 100 100 100 10/21/18 12:31 10/21/18 12:33 10/21/18 12:34 Temperature Pulse Rate 102 H 98 H 96 H Respiratory Rate 45 H 35 H 28 H Blood Pressure 161/84 H 143/100 H 169/87 H Pulse Oximetry 100 100 100 10/21/18 12:36 10/21/18 12:37 10/21/18 12:38 Temperature Pulse Rate 91 H 90 88 Respiratory Rate 26 H 27 H 32 H Blood Pressure 142/79 H 128/78 127/76 Pulse Oximetry 100 100 100 10/21/18 12:39 10/21/18 12:40 10/21/18 12:41 Temperature Pulse Rate 81 81 81 Respiratory Rate 26 H 19 19 Blood Pressure 114/67 110/64 101/64 Pulse Oximetry 100 100 100 10/21/18 12:42 10/21/18 12:43 10/21/18 12:44 Temperature Pulse Rate 81 82 82 Respiratory Rate 19 19 19 Blood Pressure 103/65 106/68 105/67 Pulse Oximetry 100 100 100 10/21/18 12:45 10/21/18 12:46 10/21/18 12:47 Temperature Pulse Rate 82 83 82 Respiratory Rate 19 18 19 Blood Pressure 113/72 113/73 110/69 Pulse Oximetry 100 100 100 10/21/18 12:48 10/21/18 12:49 10/21/18 12:50 Temperature Pulse Rate 89 81 80 Respiratory Rate 19 19 19 Blood Pressure 112/73 118/75 115/77 Pulse Oximetry 100 100 100 10/21/18 12:51 10/21/18 12:52 10/21/18 12:53 Temperature Pulse Rate 80 79 79 Respiratory Rate 19 19 19 Blood Pressure 117/75 118/76 117/77 Pulse Oximetry 100 100 100 10/21/18 12:54 10/21/18 13:03 10/21/18 13:04 Temperature Pulse Rate 79 71 72 Respiratory Rate 20 19 19 Blood Pressure 124/78 126/75 127/79 Pulse Oximetry 100 100 100 10/21/18 13:05 10/21/18 13:06 10/21/18 13:07 Temperature Pulse Rate 72 72 72 Respiratory Rate 20 20 19 Blood Pressure 125/74 117/75 121/72 Pulse Oximetry 100 100 100 10/21/18 13:08 10/21/18 13:09 10/21/18 13:11 Temperature Pulse Rate 73 72 73 Respiratory Rate 20 20 20 Blood Pressure 138/80 137/76 131/78 Pulse Oximetry 100 100 100 10/21/18 13:12 10/21/18 13:13 10/21/18 13:14 Temperature Pulse Rate 73 75 70 Respiratory Rate 19 20 20 Blood Pressure 125/77 128/76 121/74 Pulse Oximetry 100 100 100 10/21/18 13:15 10/21/18 13:16 10/21/18 13:17 Temperature Pulse Rate 72 72 70 Respiratory Rate 19 19 19 Blood Pressure 120/73 120/71 124/70 Pulse Oximetry 100 100 100 10/21/18 13:18 10/21/18 13:19 10/21/18 13:20 Temperature Pulse Rate 70 72 80 Respiratory Rate 19 19 21 Blood Pressure 123/70 134/79 125/75 Pulse Oximetry 100 100 100 10/21/18 13:21 10/21/18 13:22 10/21/18 13:23 Temperature Pulse Rate 72 70 73 Respiratory Rate 20 19 19 Blood Pressure 120/73 128/75 122/71 Pulse Oximetry 100 100 100 10/21/18 13:24 10/21/18 13:25 10/21/18 13:26 Temperature Pulse Rate 71 72 72 Respiratory Rate 18 19 19 Blood Pressure 121/72 118/72 114/73 Pulse Oximetry 100 100 100 10/21/18 13:27 10/21/18 13:30 10/21/18 14:00 Temperature Pulse Rate 74 71 70 Respiratory Rate 19 17 18 Blood Pressure 117/70 118/75 127/75 Pulse Oximetry 100 100 100 10/21/18 14:30 Temperature Pulse Rate 74 Respiratory Rate 18 Blood Pressure 121/74 Pulse Oximetry 100 Intake & Output 10/20/18 10/21/18 10/21/18 18:59 06:59 18:59 Intake Total 2168.1 / 2168.1 2387.5 / 2387.5 867.5 / 867.5 Output Total 1950 / 1950 1200 / 1200 Balance 218.1 / 218.1 1187.5 / 1187.5 867.5 / 867.5 Weight 61 kg Intake: IV 1753.1 / 1753.1 1867.5 / 1867.5 867.5 / 867.5 Diprivan 1000 mg/100 ml Inj 1, 48.1 / 48.1 100 / 100 000 mg In 100 ml @ 5 MCG/KG/MIN 2.4 mls/hr IV.CONT TITRATE PRN Rx#:[id number] NS Inj 1,000 ML @ 75 mls/hr IV. 1000 / 1000 1000 / 1000 CONT .[id number] TOAN Rx#:[id number] KCl 20 mEq Premix Inj 20 meq In 200 / 200 300 / 300 200 / 200 100 ml @ 50 mls/hr IV.SIG Q2H PRN Rx#:[id number] Vancomycin Inj 1,250 MG In NS 262.5 / 262.5 262.5 / 262.5 Inj 250 ML @ 250 mls/hr IV.SIG Q12H [facility] Rx#:[id number] Tazicef Inj 1,000 MG In NS Inj 200 / 200 100 / 100 100 / 100 100 ML @ 200 mls/hr IV.SIG Q8H [facility] Rx#:[id number] Keppra Inj 500 MG In NS Inj 100 105 / 105 105 / 105 105 / 105 ML @ 400 mls/hr IV.SIG Q12H [facility] Rx#:[id number] Flagyl 500 MG Inj 100 ML @ 100 200 / 200 100 / 100 100 / 100 mls/hr IV.SIG Q8H [facility] Rx#: [id number] Tube Feeding 315 / 315 420 / 420 Water Bolus Amount 100 / 100 100 / 100 Output: Urine Amount (Catheter) 1949 1200 / 1200 Indwelling Urethral Catheter 1949 1200 / 1200 Gastric Drainage 0 / 0 Oral 0 / 0 Other: Date of Last Bowel Movement 10/20/18 10/20/18 10/20/18 # Bowel Movements 2 10/15/18 17:44 Sputum - Endotracheal Acid Fast Bacilli Smear - Final Acid Fast Bacilli Seen 10/15/18 17:44 Sputum - Endotracheal Mycobacterial Culture - Preliminary 10/21/18 12:40 Bronchial Brushings - Left Upper Lobe Fungal Smear - Pending 10/21/18 12:40 Bronchial Brushings - Left Upper Lobe Fungal Culture - Pending 10/21/18 12:40 Bronchial Brushings - Left Upper Lobe Acid Fast Bacilli Smear - Pending 10/21/18 12:40 Bronchial Brushings - Left Upper Lobe Mycobacterial Culture - Pending 10/21/18 12:40 Bronchial Washings - Left Upper Lobe Fungal Smear - Pending 10/21/18 12:40 Bronchial Washings - Left Upper Lobe Fungal Culture - Pending 10/21/18 12:40 Bronchial Washings - Left Upper Lobe Acid Fast Bacilli Smear - Pending 10/21/18 12:40 Bronchial Washings - Left Upper Lobe Mycobacterial Culture - Pending 10/21/18 13:22 Blood - Peripheral Aerobic Blood Culture - Pending 10/21/18 13:22 Blood - Peripheral Anaerobic Blood Culture - Pending 10/21/18 13:14 Blood - Peripheral Aerobic Blood Culture - Pending 10/21/18 13:14 Blood - Peripheral Anaerobic Blood Culture - Pending 10/21/18 12:40 Bronchial Brushings - Left Upper Lobe Bronchial Tilden Culture - Pending 10/21/18 12:40 Bronchial - Left Upper Lobe Gram Stain - Pending 10/21/18 12:40 Bronchial - Left Upper Lobe Bronchial Culture - Pending 10/18/18 07:05 Blood - Peripheral Aerobic Blood Culture - Preliminary No growth in 3 days 10/18/18 07:05 Blood - Peripheral Anaerobic Blood Culture - Preliminary No growth in 3 days 10/18/18 07:55 Blood - Peripheral Aerobic Blood Culture - Preliminary No growth in 3 days 10/18/18 07:55 Blood - Peripheral Anaerobic Blood Culture - Preliminary No growth in 3 days 10/15/18 18:59 Blood - Peripheral Aerobic Blood Culture - Final No growth in 5 days 10/15/18 18:59 Blood - Peripheral Anaerobic Blood Culture - Final No growth in 5 days 10/15/18 13:45 Blood - Peripheral Aerobic Blood Culture - Final No growth in 5 days 10/15/18 13:45 Blood - Peripheral Anaerobic Blood Culture - Final No growth in 5 days Lab - Hematology Results 10/20/18 10/21/18 03:45 03:53 WBC 14.5 H 17.2 H RBC 3.29 L 3.38 L Hgb 10.2 L 10.2 L Hct 28.8 L 30.1 L MCV 87.7 89.0 MCH 31.0 30.3 MCHC 35.3 34.0 RDW 15.9 15.6 Plt Count 450 D 453 H MPV 8.2 8.7 Prelim Diff (Auto) Slide review pending Neut % (Auto) 78.9 H 75.7 H Lymph % (Auto) 8.7 L 10.1 Metcalfe % (Auto) 10.4 H 11.1 H Eos % (Auto) 1.3 2.3 Baso % (Auto) 0.7 0.8 Neut # (Auto) 11.4 H 13.0 H Lymph # (Auto) 1.3 1.7 Metcalfe # (Auto) 1.5 H 1.9 H Eos # (Auto) 0.2 0.4 Baso # (Auto) 0.1 0.1 WBC Differential . . Diff Scan Auto diff confirmed Differential Comment Auto diff final . Platelet Morphology Enlarged H Lab - Chemistry Results 10/20/18 10/20/18 10/20/18 03:45 09:20 09:20 Sodium 143 Potassium 2.2 L* Chloride 108 H Carbon Dioxide 27.1 Anion Gap 8 BUN 6 L Creatinine 0.60 0.58 L Estimated GFR Greater than 89 Greater than 89 Random Glucose 143 H Uric Acid Calcium 7.4 L* Calcium Adj for Albumin 9.2 Magnesium 1.8 Cancelled Total Bilirubin 0.5 AST 19 ALT 8 L Alkaline Phosphatase 70 Ammonia C-Reactive Protein Total Protein 6.3 L Albumin 1.7 L TSH 1.200 10/20/18 10/20/18 10/20/18 09:20 09:20 23:36 Sodium Potassium 2.2 L* Chloride Carbon Dioxide Anion Gap BUN Creatinine Estimated GFR Random Glucose Uric Acid Calcium Calcium Adj for Albumin Magnesium Total Bilirubin AST ALT Alkaline Phosphatase Ammonia 26 C-Reactive Protein Total Protein Albumin TSH Cancelled 10/21/18 10/21/18 10/21/18 03:53 13:14 13:14 Sodium 145 Potassium 3.0 L D 2.7 L* Chloride 110 H Carbon Dioxide 28.0 Anion Gap 7 BUN 8 Creatinine 0.61 Estimated GFR Greater than 89 Random Glucose 140 H Uric Acid 1.6 L Calcium 7.2 L* Calcium Adj for Albumin 9.0 Magnesium 2.0 Total Bilirubin 0.3 AST 24 ALT 9 L Alkaline Phosphatase 73 Ammonia C-Reactive Protein Total Protein 6.6 Albumin 1.7 L TSH 10/21/18 13:14 Sodium Potassium Chloride Carbon Dioxide Anion Gap BUN Creatinine Estimated GFR Random Glucose Uric Acid Calcium Calcium Adj for Albumin Magnesium Total Bilirubin AST ALT Alkaline Phosphatase Ammonia C-Reactive Protein 13.00 H Total Protein Albumin TSH Imaging: ITS Impressions Cervical Spine CT 10/15/18 13:26 CONCLUSION: 1. No acute fracture or subluxation. 2. Partially imaged large cavitary lesion in the left lung apex. Chest CT to follow. 3. Multilevel degenerative spondylosis of the cervical spine. Abdomen/Pelvis CT 10/15/18 15:27 CONCLUSION: 1. Extensive wall thickening urinary bladder, neoplastic process should be excluded. 2. Diverticulosis without diverticulitis. 3. Bilateral nonobstructing renal calculi. 4. Left basilar infiltrate. Chest CT 10/15/18 15:27 CONCLUSION: 1. Prominent cavitary mass along the anterior lateral left upper lung. This could be inflammatory/infectious versus neoplastic. It is nonspecific. 2. Patchy areas of consolidation seen at the posterior left lower lung with some lesser degree of cavitary change. This most closely resembles postinflammatory change although is nonspecific. 3. Small nodules measuring less than 5 mm at the anterior left lower lung and at the right middle lobe. These are nonspecific. They can be followed. 4. Significant adenopathy is not seen. Carotid Doppler Study 10/16/18 10:06 CONCLUSION: Negative examination for a hemodynamically significant carotid stenosis. Gianni Raymundo MD FACR Head CT 10/17/18 00:00 CONCLUSION: 1. Stable exam as detailed above. . Knee X-Ray 10/21/18 00:00 CONCLUSION: 1. Chronic irregularity of the superior pole along the patella with apparent ossification. There is adjacent mild soft tissue prominence. 2. Remote postsurgical changes in the proximal tibia. Chest X-Ray 10/21/18 06:00 CONCLUSION: No significant interval change in left lung opacity. Physical Exam: GENERAL: This is a thin, white male, who appears poorly nourished. He is unresponsive on the ventilator. HEENT: The head has a surgical bolt exiting the frontal aspect. There is ecchymosis at the right eye. Unable to assess extraocular movements. The oropharynx is intubated. NECK: No swelling. No adenopathy. LUNGS: Markedly diminished breath sounds with slight rhonchi. HEART: Normal S1 and S2. No murmurs heard. ABDOMEN: Bowel sounds present, but diminished. Soft, unable to appreciate tenderness. GENITOURINARY: Genitalia appears normal. EXTREMITIES: No clubbing, cyanosis or edema. SKIN: No diffuse rash. NEUROLOGIC: No response to painful stimuli for me. s.p bronch. PSYCHIATRIC: Unable to assess. Assessment and Plan - Plan Positive AFB in sputum with lung cavity: DDx: Pulm TB vs Atypical mycobacteria with secondary bacterial infection of cavity. Encephalopathy Traumatic subdural hemorrhage/subarachnoid hemorrhage with skull base fracture Upper GI bleed Anemia-most likely acute on chronic blood loss related Sepsis Pneumonia Left upper lobe cavitary lesion-mass versus infectious versus other inflammatory process COPD Hypertension History of alcohol abuse Recs Start Ceftriaxone IV q12hrs for Basilar skull fracture antibiotic prophylaxis. DC Ceftazidime IV DC Vanco IV for now. Dc Flagyl. Above regimen covers Skull base fracture prophylaxis and also secondary bacterial infection of lung cavity. If bronch cultures positive for AFB may need AFB treatment. follow cultures follow clinical course. ivette steele RN to resume care on Sunday.
[2018-10-22] MEDS: Dexmedetomidine Inj 200 MCG in Sodium Chlor 0.9% Inj 48 ML IV.CONT PRN ×4 (02:49→23:49)
[2018-10-22 03:54] LABS: Baso # (Auto) 0.2 th/mm3 (0.0-0.2); Baso % (Auto) 1.2 % (0.0-2.0); Eos # (Auto) 0.4 th/mm3 (0.0-0.4); Eos % (Auto) 3.2 % (0.0-4.0); Hematocrit 28.8 % (39.0-51.0); Hemoglobin 9.8 gm/dL (13.0-17.0); Lymph # (Auto) 1.8 th/mm3 (1.0-4.8); Lymph % (Auto) 13.4 % (9.0-44.0); Mean Corpuscular HGB Conc 34.1 % (32.0-36.0); Mean Corpuscular Hemoglobin 31.2 pg (27.0-34.0); Mean Corpuscular Volume 91.4 fL (80.0-100.0); Mono # (Auto) 1.3 th/mm3 (0.0-0.9); Mono % (Auto) 10.2 % (0.0-8.0); Neut # (Auto) 9.4 th/mm3 (1.8-7.7); Platelet Count 476 th/mm3 (150-450); Red Blood Count 3.15 mil/mm3 (4.50-5.90); Red Cell Distribution Width 15.8 % (11.6-17.2); White Blood Count 13.1 th/mm3 (4.0-11.0)
[2018-10-22 04:16] LABS: Glomerular Filtration Rate Greater Than 89 mL/min (>89); Potassium 3.6 meq/L (3.5-5.1)
--- NOTE | 2018-10-22 07:48 | P.PNCC ---
Subjective Subjective Remarks/Hospital Course: 10/15: 53-year-old male with a medical history significant for hypertension, COPD who was found down at home, EMS was called and attempted intubation in the field for altered mental status after giving Versed and etomidate however patient had his teeth clenched and they could not intubated hence patient was bagged and brought to the ER. He was intubated in the ER and placed on mechanical ventilation. Head CT revealed left-sided small subdural hemorrhage and subarachnoid hemorrhage with skull base fracture with air around the sella. His hemoglobin came back 5.5. He was also noted to have coffee-ground material suctioned out of his NG tube. No melena or rectal bleeding noted. He was never hypotensive with systolic blood pressure in the 150s though he was tachycardic on arrival. He did spike a temperature in the ER of 101. Chest x- ray showed possible cavitary lesion in the left apex. Patient was accepted for admission by critical care medicine service after ER physician as discussed with trauma surgeon as well as Dr. Garcia from neurosurgery. When I evaluated the patient in the ER he was sedated with propofol, orally intubated on mechanical ventilation. History was obtained by reviewing records and discussion with ER physician. 10/16: Remains sedated, intubated on mechanical ventilation. Patient reportedly has significant alcohol abuse history. Currently has ICP monitor in place. ICPs not elevated overnight. Transfused 2 units PRBCs with hemoglobin increased to 9 g%. Awaiting EGD by GI today. 10/17: Remains sedated, orally intubated on mechanical ventilation. ICPs remained normal. Sputum positive for AFB sent on 10/15 on admission. MTB PCR pending. 10/18: Remains sedated, orally intubated on mechanical ventilation. ICPs remain normal. MTB PCR negative. Family deciding regarding bronchoscopy and other invasive procedures. 10/19: Remains sedated, orally intubated on mechanical ventilation. Randolph removed yesterday. Family still deciding about bronchoscopy. 10/20: Remains intubated lightly sedated with propofol. Moves lower extremities more than opposed. Do not follow commands. Family is agreeable for bronchoscopy tomorrow 10/21: Remains intubated sedated opens eyes. Did not follow commands but moves all 4 extremities. I will discontinue all current sedation and start on Precedex to facilitate vent weaning. Patient had bronchoscopy by Dr. Ngo today. No obvious mass. Right knee is warm and swollen. With low-grade fever worsening leukocytosis elevated ESR concerning for septic arthritis. Inflammatory arthritis cannot be ruled out at this time. His rheumatoid factor was also positive 10/22: Remains intubated lightly sedated with Precedex. Patient is more awake today able to follow commands. We will start CPAP trials with attempt to wean to extubate. The swelling of right knee has completely subsided now Objective Vital Signs / I&O: Vital Signs 10/21/18 08:00 10/21/18 09:00 10/21/18 10:00 Temperature 100 F H 98.8 F 98.8 F Pulse Rate 70 86 89 Respiratory Rate 14 24 25 H Blood Pressure 131/73 121/75 132/78 Pulse Oximetry 100 100 100 10/21/18 11:00 10/21/18 11:11 10/21/18 12:28 Temperature 98.8 F Pulse Rate 95 H 73 Respiratory Rate 27 H 21 21 Blood Pressure 132/74 120/81 Pulse Oximetry 98 98 100 10/21/18 12:29 10/21/18 12:30 10/21/18 12:31 Temperature Pulse Rate 86 85 102 H Respiratory Rate 24 24 45 H Blood Pressure 163/86 H 203/115 H 161/84 H Pulse Oximetry 100 100 100 10/21/18 12:33 10/21/18 12:34 10/21/18 12:36 Temperature Pulse Rate 98 H 96 H 91 H Respiratory Rate 35 H 28 H 26 H Blood Pressure 143/100 H 169/87 H 142/79 H Pulse Oximetry 100 100 100 10/21/18 12:37 10/21/18 12:38 10/21/18 12:39 Temperature Pulse Rate 90 88 81 Respiratory Rate 27 H 32 H 26 H Blood Pressure 128/78 127/76 114/67 Pulse Oximetry 100 100 100 10/21/18 12:40 10/21/18 12:41 10/21/18 12:42 Temperature Pulse Rate 81 81 81 Respiratory Rate 19 19 19 Blood Pressure 110/64 101/64 103/65 Pulse Oximetry 100 100 100 10/21/18 12:43 10/21/18 12:44 10/21/18 12:45 Temperature Pulse Rate 82 82 82 Respiratory Rate 19 19 19 Blood Pressure 106/68 105/67 113/72 Pulse Oximetry 100 100 100 10/21/18 12:46 10/21/18 12:47 10/21/18 12:48 Temperature Pulse Rate 83 82 89 Respiratory Rate 18 19 19 Blood Pressure 113/73 110/69 112/73 Pulse Oximetry 100 100 100 10/21/18 12:49 10/21/18 12:50 10/21/18 12:51 Temperature Pulse Rate 81 80 80 Respiratory Rate 19 19 19 Blood Pressure 118/75 115/77 117/75 Pulse Oximetry 100 100 100 10/21/18 12:52 10/21/18 12:53 10/21/18 12:54 Temperature Pulse Rate 79 79 79 Respiratory Rate 19 19 20 Blood Pressure 118/76 117/77 124/78 Pulse Oximetry 100 100 100 10/21/18 13:03 10/21/18 13:04 10/21/18 13:05 Temperature Pulse Rate 71 72 72 Respiratory Rate 19 19 20 Blood Pressure 126/75 127/79 125/74 Pulse Oximetry 100 100 100 10/21/18 13:06 10/21/18 13:07 10/21/18 13:08 Temperature Pulse Rate 72 72 73 Respiratory Rate 20 19 20 Blood Pressure 117/75 121/72 138/80 Pulse Oximetry 100 100 100 10/21/18 13:09 10/21/18 13:11 10/21/18 13:12 Temperature Pulse Rate 72 73 73 Respiratory Rate 20 20 19 Blood Pressure 137/76 131/78 125/77 Pulse Oximetry 100 100 100 10/21/18 13:13 10/21/18 13:14 10/21/18 13:15 Temperature Pulse Rate 75 70 72 Respiratory Rate 20 20 19 Blood Pressure 128/76 121/74 120/73 Pulse Oximetry 100 100 100 10/21/18 13:16 10/21/18 13:17 10/21/18 13:18 Temperature Pulse Rate 72 70 70 Respiratory Rate 19 19 19 Blood Pressure 120/71 124/70 123/70 Pulse Oximetry 100 100 100 10/21/18 13:19 10/21/18 13:20 10/21/18 13:21 Temperature Pulse Rate 72 80 72 Respiratory Rate 19 21 20 Blood Pressure 134/79 125/75 120/73 Pulse Oximetry 100 100 100 10/21/18 13:22 10/21/18 13:23 10/21/18 13:24 Temperature Pulse Rate 70 73 71 Respiratory Rate 19 19 18 Blood Pressure 128/75 122/71 121/72 Pulse Oximetry 100 100 100 10/21/18 13:25 10/21/18 13:26 10/21/18 13:27 Temperature Pulse Rate 72 72 74 Respiratory Rate 19 19 19 Blood Pressure 118/72 114/73 117/70 Pulse Oximetry 100 100 100 10/21/18 13:30 10/21/18 14:00 10/21/18 14:30 Temperature Pulse Rate 71 70 74 Respiratory Rate 17 18 18 Blood Pressure 118/75 127/75 121/74 Pulse Oximetry 100 100 100 10/21/18 15:00 10/21/18 15:30 10/21/18 16:00 Temperature Pulse Rate 72 80 80 Respiratory Rate 19 17 21 Blood Pressure 129/76 106/69 126/73 Pulse Oximetry 100 100 100 10/21/18 16:30 10/21/18 17:00 10/21/18 17:12 Temperature Pulse Rate 70 69 Respiratory Rate 21 21 22 Blood Pressure 116/70 114/70 Pulse Oximetry 99 100 100 10/21/18 17:30 10/21/18 18:00 10/21/18 18:30 Temperature Pulse Rate 71 70 68 Respiratory Rate 19 23 22 Blood Pressure 117/74 104/64 113/72 Pulse Oximetry 100 100 100 10/21/18 19:00 10/21/18 19:30 10/21/18 19:52 Temperature Pulse Rate 71 96 H Respiratory Rate 23 22 20 Blood Pressure 107/67 144/81 H Pulse Oximetry 100 98 100 10/21/18 20:00 10/21/18 20:30 10/21/18 21:00 Temperature 101.2 F H Pulse Rate 74 93 H 81 Respiratory Rate 20 23 18 Blood Pressure 119/73 133/81 102/65 Pulse Oximetry 99 98 96 10/21/18 21:30 10/21/18 22:00 10/21/18 22:30 Temperature Pulse Rate 81 84 88 Respiratory Rate 16 23 21 Blood Pressure 97/62 L 135/82 121/78 Pulse Oximetry 98 100 99 10/21/18 23:00 10/21/18 23:30 10/22/18 00:00 Temperature 99.0 F Pulse Rate 83 90 84 Respiratory Rate 20 24 21 Blood Pressure 118/78 132/81 121/77 Pulse Oximetry 99 99 98 10/22/18 00:06 10/22/18 00:12 10/22/18 00:30 Temperature Pulse Rate 67 63 Respiratory Rate 16 17 14 Blood Pressure 107/69 116/75 Pulse Oximetry 97 98 98 10/22/18 01:00 10/22/18 01:30 10/22/18 02:00 Temperature Pulse Rate 57 L 61 53 L Respiratory Rate 14 24 14 Blood Pressure 119/80 131/83 132/83 Pulse Oximetry 99 100 99 10/22/18 02:30 10/22/18 03:00 10/22/18 03:30 Temperature Pulse Rate 52 L 65 55 L Respiratory Rate 14 21 15 Blood Pressure 134/85 128/81 136/77 Pulse Oximetry 100 100 100 10/22/18 03:58 10/22/18 04:00 10/22/18 04:30 Temperature 97.6 F Pulse Rate 56 L 62 Respiratory Rate 14 14 20 Blood Pressure 139/83 131/79 Pulse Oximetry 99 99 100 10/22/18 05:00 10/22/18 05:30 10/22/18 06:00 Temperature Pulse Rate 59 L 60 59 L Respiratory Rate 16 17 16 Blood Pressure 117/74 125/78 121/77 Pulse Oximetry 99 100 99 Intake & Output 10/21/18 10/22/18 10/22/18 18:59 06:59 18:59 Intake Total 1367.5 / 1367.5 1900 / 1900 Output Total 975 / 975 400 / 400 Balance 392.5 / 392.5 1500 / 1500 Weight 57.9 kg Intake: IV 1167.5 / 1167.5 1322 / 1322 Precedex Inj 200 MCG In NS Inj 92 / 92 48 ML @ 0.2 MCG/KG/HR 3.05 mls/ hr IV.CONT TITRATE PRN Rx#: [id number] Diprivan 1000 mg/100 ml Inj 1, 100 / 100 000 mg In 100 ml @ 5 MCG/KG/MIN 2.4 mls/hr IV.CONT TITRATE PRN Rx#:[id number] NS Inj 1,000 ML @ 75 mls/hr IV. 825 / 825 CONT .[id number] [facility] Rx#:[id number] KCl 20 mEq Premix Inj 20 meq In 400 / 400 200 / 200 100 ml @ 50 mls/hr IV.SIG Q2H PRN Rx#:[id number] Vancomycin Inj 1,250 MG In NS 262.5 / 262.5 Inj 250 ML @ 250 mls/hr IV.SIG Q12H [facility] Rx#:[id number] Tazicef Inj 1,000 MG In NS Inj 100 / 100 100 ML @ 200 mls/hr IV.SIG Q8H [facility] Rx#:[id number] Rocephin Inj 2,000 MG In NS Inj 100 / 100 100 / 100 100 ML @ 200 mls/hr IV.SIG Q12H [facility] Rx#:[id number] Keppra Inj 500 MG In NS Inj 100 105 / 105 105 / 105 ML @ 400 mls/hr IV.SIG Q12H [facility] Rx#:[id number] Flagyl 500 MG Inj 100 ML @ 100 100 / 100 mls/hr IV.SIG Q8H [facility] Rx#: [id number] Tube Feeding 200 / 200 578 / 578 Output: Urine Amount (Catheter) 975 / 975 400 / 400 Condom 400 / 400 Indwelling Urethral Catheter 975 / 975 Other: Date of Last Bowel Movement 10/20/18 10/20/18 Result Diagrams: 10/22/18 03:03 10/22/18 03:03 Objective Remarks: GEN: Intubated sedated with Precedex HEENT: Orally intubated, Pallor present, no icterus, tongue/ mucosa moist Neck: No JVD Chest/Pulm: on mech vent, good air entry bilaterally, no wheezing or crackles CVS: S1-S2 regular, no murmur GI/abdomen: soft, nontender, bowel sounds sluggish Extremities: warm bilaterally, no edema. Right knee swelling has subsided Neuro: Sedated with Precedex, Pupils 2mm bilaterally constricted. Following commands x4 today. No focal deficits Assessment and Plan - Assessment and Plan Plan: 53-year-old male with: ASSESSMENT Acute metabolic encephalopathy Traumatic subdural hemorrhage/subarachnoid hemorrhage with skull base fracture Upper GI bleed Anemia-most likely acute on chronic blood loss related Acute respiratory failure Sepsis Pneumonia Left upper lobe cavitary lesion-mass versus infectious versus other inflammatory process. Sputum AFB positive - MTB PCR negative Positive rheumatoid factor COPD Hypertension History of alcohol abuse Plan: Neuro: Discontinued all sedation and CIWA on 10/21. Precedex to facilitate ventilator weaning Neurosurgery Dr. Garcia performed burrhole with ICP monitor placement. Now ICP monitor removed Repeat head CT 10/17 noted. On IV thiamine/folic acid/MVI. Watch for alcohol withdrawal when extubated Previous EEG showed moderate encephalopathy Neuro exam much improved today. Patient able to follow commands Pulmonary: Continue mechanical ventilation, vent bundle, bronchodilators. Sputum AFB stain positive however MTB PCR negative. Consulted pulmonary/ID for further evaluation of left upper lobe cavitary lesion. Pulmonary Dr. Ngo following. Bronchoscopy 10/21/18 showed inflammation no obvious mass Will initiate CPAP trials with possible extubation GI/liver: GI Dr. Pretty. EGD done on 10/16 was negative for any active bleeding, blood clot in fundus probably from blood tracking down from pharynx, Grade A esophagitis noted. Protonix drip discontinued and placed on daily Protonix Defer to GI regarding colonoscopy as patient appears to have acute on chronic anemia as he came in with a hemoglobin of 5.5 and was hemodynamically stable. Heme: Follow CBC, Coags okay. Transfused 2 units PRBCs on 10/15. transfuse to keep hemoglobin above 7 g% provided patient maintains hemodynamic stability. ID/MSK: Started on Ceftriaxone IV q12hrs for Basilar skull fracture antibiotic prophylaxis by ID ID has discontinued Ceftazidime IV, Vanco IV and Flagyl on 10/21/2018 Rheumatoid factor positive, elevated sed rate but without further history hard to confirm rheumatoid arthritis Sputum positive for AFB. MTB PCR negative s/p Bronch 10/21 by pulmonary, follow-up on bronch cx Endocrine: Watch for hyperglycemia, SSI for glycemic control if needed. Prophylaxis: Protonix SCDs. No subcu heparin in view of GI bleed, subdural hemorrhage/ subarachnoid hemorrhage until cleared by neurosurgery and GI Palliative care following Condition critical Level 3
[2018-10-22] MEDS: Pantoprazole Inj 40 MG Vial IV.PUSH SCH (08:26)
[2018-10-22] MEDS: Sodium Chloride 0.9% 2 ML Flush BID IV.FLUSH SCH ×2 (08:56→20:59)
[2018-10-22] MEDS: Sod Chloride 0.9% Inj 1,000 ML IV.CONT SCH ×3 (10:34→23:33)
--- NOTE | 2018-10-22 10:40 | P.PNNS ---
Subjective Interval history: intubated, opens eyes and follows simple commands Physical Exam Vital signs: Vital Signs 10/21/18 11:00 10/21/18 11:11 10/21/18 12:28 Temperature 98.8 F Pulse Rate 95 H 73 Respiratory Rate 27 H 21 21 Blood Pressure 132/74 120/81 Pulse Oximetry 98 98 100 10/21/18 12:29 10/21/18 12:30 10/21/18 12:31 Temperature Pulse Rate 86 85 102 H Respiratory Rate 24 24 45 H Blood Pressure 163/86 H 203/115 H 161/84 H Pulse Oximetry 100 100 100 10/21/18 12:33 10/21/18 12:34 10/21/18 12:36 Temperature Pulse Rate 98 H 96 H 91 H Respiratory Rate 35 H 28 H 26 H Blood Pressure 143/100 H 169/87 H 142/79 H Pulse Oximetry 100 100 100 10/21/18 12:37 10/21/18 12:38 10/21/18 12:39 Temperature Pulse Rate 90 88 81 Respiratory Rate 27 H 32 H 26 H Blood Pressure 128/78 127/76 114/67 Pulse Oximetry 100 100 100 10/21/18 12:40 10/21/18 12:41 10/21/18 12:42 Temperature Pulse Rate 81 81 81 Respiratory Rate 19 19 19 Blood Pressure 110/64 101/64 103/65 Pulse Oximetry 100 100 100 10/21/18 12:43 10/21/18 12:44 10/21/18 12:45 Temperature Pulse Rate 82 82 82 Respiratory Rate 19 19 19 Blood Pressure 106/68 105/67 113/72 Pulse Oximetry 100 100 100 10/21/18 12:46 10/21/18 12:47 10/21/18 12:48 Temperature Pulse Rate 83 82 89 Respiratory Rate 18 19 19 Blood Pressure 113/73 110/69 112/73 Pulse Oximetry 100 100 100 10/21/18 12:49 10/21/18 12:50 10/21/18 12:51 Temperature Pulse Rate 81 80 80 Respiratory Rate 19 19 19 Blood Pressure 118/75 115/77 117/75 Pulse Oximetry 100 100 100 10/21/18 12:52 10/21/18 12:53 10/21/18 12:54 Temperature Pulse Rate 79 79 79 Respiratory Rate 19 19 20 Blood Pressure 118/76 117/77 124/78 Pulse Oximetry 100 100 100 10/21/18 13:03 10/21/18 13:04 10/21/18 13:05 Temperature Pulse Rate 71 72 72 Respiratory Rate 19 19 20 Blood Pressure 126/75 127/79 125/74 Pulse Oximetry 100 100 100 10/21/18 13:06 10/21/18 13:07 10/21/18 13:08 Temperature Pulse Rate 72 72 73 Respiratory Rate 20 19 20 Blood Pressure 117/75 121/72 138/80 Pulse Oximetry 100 100 100 10/21/18 13:09 10/21/18 13:11 10/21/18 13:12 Temperature Pulse Rate 72 73 73 Respiratory Rate 20 20 19 Blood Pressure 137/76 131/78 125/77 Pulse Oximetry 100 100 100 10/21/18 13:13 10/21/18 13:14 10/21/18 13:15 Temperature Pulse Rate 75 70 72 Respiratory Rate 20 20 19 Blood Pressure 128/76 121/74 120/73 Pulse Oximetry 100 100 100 10/21/18 13:16 10/21/18 13:17 10/21/18 13:18 Temperature Pulse Rate 72 70 70 Respiratory Rate 19 19 19 Blood Pressure 120/71 124/70 123/70 Pulse Oximetry 100 100 100 10/21/18 13:19 10/21/18 13:20 10/21/18 13:21 Temperature Pulse Rate 72 80 72 Respiratory Rate 19 21 20 Blood Pressure 134/79 125/75 120/73 Pulse Oximetry 100 100 100 10/21/18 13:22 10/21/18 13:23 10/21/18 13:24 Temperature Pulse Rate 70 73 71 Respiratory Rate 19 19 18 Blood Pressure 128/75 122/71 121/72 Pulse Oximetry 100 100 100 10/21/18 13:25 10/21/18 13:26 10/21/18 13:27 Temperature Pulse Rate 72 72 74 Respiratory Rate 19 19 19 Blood Pressure 118/72 114/73 117/70 Pulse Oximetry 100 100 100 10/21/18 13:30 10/21/18 14:00 10/21/18 14:30 Temperature Pulse Rate 71 70 74 Respiratory Rate 17 18 18 Blood Pressure 118/75 127/75 121/74 Pulse Oximetry 100 100 100 10/21/18 15:00 10/21/18 15:30 10/21/18 16:00 Temperature Pulse Rate 72 80 80 Respiratory Rate 19 17 21 Blood Pressure 129/76 106/69 126/73 Pulse Oximetry 100 100 100 10/21/18 16:30 10/21/18 17:00 10/21/18 17:12 Temperature Pulse Rate 70 69 Respiratory Rate 21 21 22 Blood Pressure 116/70 114/70 Pulse Oximetry 99 100 100 10/21/18 17:30 10/21/18 18:00 10/21/18 18:30 Temperature Pulse Rate 71 70 68 Respiratory Rate 19 23 22 Blood Pressure 117/74 104/64 113/72 Pulse Oximetry 100 100 100 10/21/18 19:00 10/21/18 19:30 10/21/18 19:52 Temperature Pulse Rate 71 96 H Respiratory Rate 23 22 20 Blood Pressure 107/67 144/81 H Pulse Oximetry 100 98 100 10/21/18 20:00 10/21/18 20:30 10/21/18 21:00 Temperature 101.2 F H Pulse Rate 74 93 H 81 Respiratory Rate 20 23 18 Blood Pressure 119/73 133/81 102/65 Pulse Oximetry 99 98 96 10/21/18 21:30 10/21/18 22:00 10/21/18 22:30 Temperature Pulse Rate 81 84 88 Respiratory Rate 16 23 21 Blood Pressure 97/62 L 135/82 121/78 Pulse Oximetry 98 100 99 10/21/18 23:00 10/21/18 23:30 10/22/18 00:00 Temperature 99.0 F Pulse Rate 83 90 84 Respiratory Rate 20 24 21 Blood Pressure 118/78 132/81 121/77 Pulse Oximetry 99 99 98 10/22/18 00:06 10/22/18 00:12 10/22/18 00:30 Temperature Pulse Rate 67 63 Respiratory Rate 16 17 14 Blood Pressure 107/69 116/75 Pulse Oximetry 97 98 98 10/22/18 01:00 10/22/18 01:30 10/22/18 02:00 Temperature Pulse Rate 57 L 61 53 L Respiratory Rate 14 24 14 Blood Pressure 119/80 131/83 132/83 Pulse Oximetry 99 100 99 10/22/18 02:30 10/22/18 03:00 10/22/18 03:30 Temperature Pulse Rate 52 L 65 55 L Respiratory Rate 14 21 15 Blood Pressure 134/85 128/81 136/77 Pulse Oximetry 100 100 100 10/22/18 03:58 10/22/18 04:00 10/22/18 04:30 Temperature 97.6 F Pulse Rate 56 L 62 Respiratory Rate 14 14 20 Blood Pressure 139/83 131/79 Pulse Oximetry 99 99 100 10/22/18 05:00 10/22/18 05:30 10/22/18 06:00 Temperature Pulse Rate 59 L 60 59 L Respiratory Rate 16 17 16 Blood Pressure 117/74 125/78 121/77 Pulse Oximetry 99 100 99 10/22/18 06:30 10/22/18 06:32 10/22/18 07:00 Temperature 98.9 F Pulse Rate 76 77 78 Respiratory Rate 27 H 25 H 25 H Blood Pressure 165/101 H 160/99 H 154/99 H Pulse Oximetry 100 100 100 10/22/18 07:30 10/22/18 07:41 10/22/18 08:00 Temperature 98.9 F Pulse Rate 83 84 Respiratory Rate 28 H 17 31 H Blood Pressure 163/97 H 149/79 H Pulse Oximetry 100 100 98 10/22/18 08:30 10/22/18 09:00 Temperature Pulse Rate 83 64 Respiratory Rate 32 H 24 Blood Pressure 131/89 114/71 Pulse Oximetry 99 99 Intake & Output 10/21/18 10/22/18 10/22/18 18:59 06:59 18:59 Intake Total 1367.5 / 1367.5 1900 / 1900 50 / 50 Output Total 975 / 975 400 / 400 Balance 392.5 / 392.5 1500 / 1500 50 / 50 Weight 57.9 kg Intake: IV 1167.5 / 1167.5 1322 / 1322 50 / 50 Precedex Inj 200 MCG In NS Inj 92 / 92 50 / 50 48 ML @ 0.2 MCG/KG/HR 3.05 mls/ hr IV.CONT TITRATE PRN Rx#: [id number] Diprivan 1000 mg/100 ml Inj 1, 100 / 100 000 mg In 100 ml @ 5 MCG/KG/MIN 2.4 mls/hr IV.CONT TITRATE PRN Rx#:[id number] NS Inj 1,000 ML @ 75 mls/hr IV. 825 / 825 CONT .[id number] [facility] Rx#:[id number] KCl 20 mEq Premix Inj 20 meq In 400 / 400 200 / 200 100 ml @ 50 mls/hr IV.SIG Q2H PRN Rx#:[id number] Vancomycin Inj 1,250 MG In NS 262.5 / 262.5 Inj 250 ML @ 250 mls/hr IV.SIG Q12H [facility] Rx#:[id number] Tazicef Inj 1,000 MG In NS Inj 100 / 100 100 ML @ 200 mls/hr IV.SIG Q8H [facility] Rx#:[id number] Rocephin Inj 2,000 MG In NS Inj 100 / 100 100 / 100 100 ML @ 200 mls/hr IV.SIG Q12H [facility] Rx#:[id number] Keppra Inj 500 MG In NS Inj 100 105 / 105 105 / 105 ML @ 400 mls/hr IV.SIG Q12H [facility] Rx#:[id number] Flagyl 500 MG Inj 100 ML @ 100 100 / 100 mls/hr IV.SIG Q8H [facility] Rx#: [id number] Tube Feeding 200 / 200 578 / 578 Output: Urine Amount (Catheter) 975 / 975 400 / 400 Condom 400 / 400 Indwelling Urethral Catheter 975 / 975 Other: Date of Last Bowel Movement 10/20/18 10/20/18 10/22/18 Narrative: intubated opens eyes, focuses and tracks pupils equal moved all extremities to command - Urinary Catheter Management Indwelling Urethral Catheter Cath placed during this visit: yes, but has since been removed by the nurse Urethral indwelling: Yes Reason for continuing: Decision to DC catheter Insertion date: 10/15/18 Insertion time: 14:00 Removal date: 10/21/18 Removal time: 18:00 Condom Cath placed during this visit: yes Reason for continuing: Not indwelling catheter Insertion date: 10/21/18 Insertion time: 18:00 Assessment and Plan - Plan 53 year old male s/p mild subdural hemorrhage right frontal, left tentorium, left anterior falx, left temporal, stable f/u CT Brain 10/17/18 skull base fracture placement of ICP monitor 10/15/18, removed 10/18 due to absence of observed intracranial hypertension EEG 10/16/18 no evidence of seizures, moderate to severe encephalopathy cont neuro checks neuro exam improving cont critical care - vent weaning
[2018-10-22] MEDS ORDERED: Dexamethasone Inj 20 MG/5 ML Vial IV.PUSH ONE (11:45)
[2018-10-22] MEDS ORDERED: RESP: Racemic Epinephrine 2.25% 0.5 ML Neb ONE (11:49)
--- NOTE | 2018-10-22 14:23 | P.PNID ---
Subjective Remarks: Delayed entry. Patient seen around 11:42am. Notes reviewed. Patient is currently on CPAP. Opens the left eye. Right eye is closed and has ecchymosis. He is awake but not following commands. Plans to extubate today. Spoke to microbiology. PCR on the sputum AFB negative for tuberculosis. No fever. is a 53-year-old white male, who was brought to the emergency department in an unresponsive state. The patient was noted to have a skull fracture and a subdural hemorrhage at the right frontal region. He was intubated. He was taken to surgery, and underwent bur hole with evacuation of subarachnoid and subdural hemorrhage. The patient is unresponsive on the ventilator. Information is obtained from the medical record. No history is available at this time. The patient had elevated temperature of 102 on admission. Temperatures today have decreased, and are in normal range; however , it was elevated most of yesterday evening. White blood cell count is elevated at 20.3. Chest x-ray showed ill-defined parenchymal and pleural opacity in the left upper lobe. CT scan of the chest shows a prominent cavitary mass along the left anterolateral upper lung, and also patchy areas of consolidation at the posterior left lower lobe with some lesser degree of cavitary change. Small nodules measuring less than 5 mm were seen at the anterior left lower lobe, and at the right middle lobe. Sputum culture is pending. Sputum AFB is pending. Blood culture is pending. Urine culture is pending. Urinalysis revealed 14 white cells and moderate leukocyte esterase. The patient is currently unresponsive on the ventilator. ID following for lung cavity concern for abscess vs TB or atypical mycobacteria. Past history of multiple incarcerations. ? Positive PPD. Lines: Lines ok Past Medical History: reviewed Allergies/Adverse Reactions: Allergies lisinopril Allergy (Intermediate, Verified 10/15/18 13:39) hallucinations amlodipine Allergy (Unknown, Verified 10/15/18 13:38) headaches Objective Vital Signs 10/21/18 14:30 10/21/18 15:00 10/21/18 15:30 Temperature Pulse Rate 74 72 80 Respiratory Rate 18 19 17 Blood Pressure 121/74 129/76 106/69 Pulse Oximetry 100 100 100 10/21/18 16:00 10/21/18 16:30 10/21/18 17:00 Temperature Pulse Rate 80 70 69 Respiratory Rate 21 21 21 Blood Pressure 126/73 116/70 114/70 Pulse Oximetry 100 99 100 10/21/18 17:12 10/21/18 17:30 10/21/18 18:00 Temperature Pulse Rate 71 70 Respiratory Rate 22 19 23 Blood Pressure 117/74 104/64 Pulse Oximetry 100 100 100 10/21/18 18:30 10/21/18 19:00 10/21/18 19:30 Temperature Pulse Rate 68 71 96 H Respiratory Rate 22 23 22 Blood Pressure 113/72 107/67 144/81 H Pulse Oximetry 100 100 98 10/21/18 19:52 10/21/18 20:00 10/21/18 20:30 Temperature 101.2 F H Pulse Rate 74 93 H Respiratory Rate 20 20 23 Blood Pressure 119/73 133/81 Pulse Oximetry 100 99 98 10/21/18 21:00 10/21/18 21:30 10/21/18 22:00 Temperature Pulse Rate 81 81 84 Respiratory Rate 18 16 23 Blood Pressure 102/65 97/62 L 135/82 Pulse Oximetry 96 98 100 10/21/18 22:30 10/21/18 23:00 10/21/18 23:30 Temperature Pulse Rate 88 83 90 Respiratory Rate 21 20 24 Blood Pressure 121/78 118/78 132/81 Pulse Oximetry 99 99 99 10/22/18 00:00 10/22/18 00:06 10/22/18 00:12 Temperature 99.0 F Pulse Rate 84 67 Respiratory Rate 21 16 17 Blood Pressure 121/77 107/69 Pulse Oximetry 98 97 98 10/22/18 00:30 10/22/18 01:00 10/22/18 01:30 Temperature Pulse Rate 63 57 L 61 Respiratory Rate 14 14 24 Blood Pressure 116/75 119/80 131/83 Pulse Oximetry 98 99 100 10/22/18 02:00 10/22/18 02:30 10/22/18 03:00 Temperature Pulse Rate 53 L 52 L 65 Respiratory Rate 14 14 21 Blood Pressure 132/83 134/85 128/81 Pulse Oximetry 99 100 100 10/22/18 03:30 10/22/18 03:58 10/22/18 04:00 Temperature 97.6 F Pulse Rate 55 L 56 L Respiratory Rate 15 14 14 Blood Pressure 136/77 139/83 Pulse Oximetry 100 99 99 10/22/18 04:30 10/22/18 05:00 10/22/18 05:30 Temperature Pulse Rate 62 59 L 60 Respiratory Rate 20 16 17 Blood Pressure 131/79 117/74 125/78 Pulse Oximetry 100 99 100 10/22/18 06:00 10/22/18 06:30 10/22/18 06:32 Temperature Pulse Rate 59 L 76 77 Respiratory Rate 16 27 H 25 H Blood Pressure 121/77 165/101 H 160/99 H Pulse Oximetry 99 100 100 10/22/18 07:00 10/22/18 07:30 10/22/18 07:41 Temperature 98.9 F Pulse Rate 78 83 Respiratory Rate 25 H 28 H 17 Blood Pressure 154/99 H 163/97 H Pulse Oximetry 100 100 100 10/22/18 08:00 10/22/18 08:30 10/22/18 09:00 Temperature 98.9 F Pulse Rate 84 83 64 Respiratory Rate 31 H 32 H 24 Blood Pressure 149/79 H 131/89 114/71 Pulse Oximetry 98 99 99 10/22/18 09:30 10/22/18 10:00 10/22/18 10:30 Temperature Pulse Rate 58 L 57 L 72 Respiratory Rate 23 22 22 Blood Pressure 119/73 131/78 145/87 H Pulse Oximetry 100 100 100 10/22/18 11:00 10/22/18 11:30 10/22/18 12:00 Temperature 99.8 F H Pulse Rate 73 71 76 Respiratory Rate 26 H 17 17 Blood Pressure 142/85 H 128/78 126/78 Pulse Oximetry 100 100 100 Intake & Output 10/21/18 10/22/18 10/22/18 18:59 06:59 18:59 Intake Total 1367.5 / 1367.5 1900 / 1900 1050 / 1050 Output Total 975 / 975 400 / 400 Balance 392.5 / 392.5 1500 / 1500 1050 / 1050 Weight 57.9 kg Intake: IV 1167.5 / 1167.5 1322 / 1322 1050 / 1050 Precedex Inj 200 MCG In NS Inj 92 / 92 50 / 50 48 ML @ 0.2 MCG/KG/HR 3.05 mls/ hr IV.CONT TITRATE PRN Rx#: [id number] Diprivan 1000 mg/100 ml Inj 1, 100 / 100 000 mg In 100 ml @ 5 MCG/KG/MIN 2.4 mls/hr IV.CONT TITRATE PRN Rx#:[id number] NS Inj 1,000 ML @ 75 mls/hr IV. 825 / 825 1000 / 1000 CONT .[id number] TOAN Rx#:[id number] KCl 20 mEq Premix Inj 20 meq In 400 / 400 200 / 200 100 ml @ 50 mls/hr IV.SIG Q2H PRN Rx#:[id number] Vancomycin Inj 1,250 MG In NS 262.5 / 262.5 Inj 250 ML @ 250 mls/hr IV.SIG Q12H TOAN Rx#:[id number] Tazicef Inj 1,000 MG In NS Inj 100 / 100 100 ML @ 200 mls/hr IV.SIG Q8H TOAN Rx#:[id number] Rocephin Inj 2,000 MG In NS Inj 100 / 100 100 / 100 100 ML @ 200 mls/hr IV.SIG Q12H TOAN Rx#:[id number] Keppra Inj 500 MG In NS Inj 100 105 / 105 105 / 105 ML @ 400 mls/hr IV.SIG Q12H TOAN Rx#:[id number] Flagyl 500 MG Inj 100 ML @ 100 100 / 100 mls/hr IV.SIG Q8H TOAN Rx#: [id number] Tube Feeding 200 / 200 578 / 578 Output: Urine Amount (Catheter) 975 / 975 400 / 400 Condom 400 / 400 Indwelling Urethral Catheter 975 / 975 Other: Date of Last Bowel Movement 10/20/18 10/20/18 10/20/18 10/21/18 12:40 Bronchial - Left Upper Lobe Gram Stain - Final 10/21/18 12:40 Bronchial - Left Upper Lobe Bronchial Culture - Preliminary Staphylococcus aureus 10/21/18 12:40 Bronchial Brushings - Left Upper Lobe Bronchial [place] Culture - Preliminary No growth in 24 hours 10/21/18 13:22 Blood - Peripheral Aerobic Blood Culture - Preliminary No growth in 1 day 10/21/18 13:22 Blood - Peripheral Anaerobic Blood Culture - Preliminary No growth in 1 day 10/21/18 13:14 Blood - Peripheral Aerobic Blood Culture - Preliminary No growth in 1 day 10/21/18 13:14 Blood - Peripheral Anaerobic Blood Culture - Preliminary No growth in 1 day 10/18/18 07:05 Blood - Peripheral Aerobic Blood Culture - Preliminary No growth in 4 days 10/18/18 07:05 Blood - Peripheral Anaerobic Blood Culture - Preliminary No growth in 4 days 10/18/18 07:55 Blood - Peripheral Aerobic Blood Culture - Preliminary No growth in 4 days 10/18/18 07:55 Blood - Peripheral Anaerobic Blood Culture - Preliminary No growth in 4 days 10/15/18 17:44 Sputum - Endotracheal Acid Fast Bacilli Smear - Final Acid Fast Bacilli Seen 10/15/18 17:44 Sputum - Endotracheal Mycobacterial Culture - Preliminary 10/21/18 12:40 Bronchial Brushings - Left Upper Lobe Fungal Smear - Pending 10/21/18 12:40 Bronchial Br[place]ings - Left Upper Lobe Fungal Culture - Pending 10/21/18 12:40 Bronchial Brushings - Left Upper Lobe Acid Fast Bacilli Smear - Pending 10/21/18 12:40 Bronchial Brushings - Left Upper Lobe Mycobacterial Culture - Pending 10/21/18 12:40 Bronchial Washings - Left Upper Lobe Fungal Smear - Pending 10/21/18 12:40 Bronchial Washings - Left Upper Lobe Fungal Culture - Pending 10/21/18 12:40 Bronchial Washings - Left Upper Lobe Acid Fast Bacilli Smear - Pending 10/21/18 12:40 Bronchial Wash[place] - Left Upper Lobe Mycobacterial Culture - Pending 10/15/18 18:59 Blood - Peripheral Aerobic Blood Culture - Final No growth in 5 days 10/15/18 18:59 Blood - Peripheral Anaerobic Blood Culture - Final No growth in 5 days 10/15/18 13:45 Blood - Peripheral Aerobic Blood Culture - Final No growth in 5 days 10/15/18 13:45 Blood - Peripheral Anaerobic Blood Culture - Final No growth in 5 days Lab - Hematology Results 10/21/18 10/22/18 03:53 03:03 WBC 17.2 H 13.1 H RBC 3.38 L 3.15 L Hgb 10.2 L 9.8 L Hct 30.1 L 28.8 L MCV 89.0 91.4 MCH 30.3 31.2 MCHC 34.0 34.1 RDW 15.6 15.8 Plt Count 453 H 476 H MPV 8.7 9.0 Prelim Diff (Auto) Slide review pending Neut % (Auto) 75.7 H 72.0 H Lymph % (Auto) 10.1 13.4 [place] % (Auto) 11.1 H 10.2 H Eos % (Auto) 2.3 3.2 Baso % (Auto) 0.8 1.2 Neut # (Auto) 13.0 H 9.4 H Lymph # (Auto) 1.7 1.8 [place] # (Auto) 1.9 H 1.3 H Eos # (Auto) 0.4 0.4 Baso # (Auto) 0.1 0.2 WBC Differential . . Diff Scan Auto diff confirmed Differential Comment . Auto diff final Platelet Morphology Enlarged H Lab - Chemistry Results 10/20/18 10/21/18 10/21/18 23:36 03:53 13:14 Sodium 145 Potassium 2.2 L* 3.0 L D 2.7 L* Chloride 110 H Carbon Dioxide 28.0 Anion Gap 7 BUN 8 Creatinine 0.61 Estimated GFR Greater than 89 Random Glucose 140 H Uric Acid Calcium 7.2 L* Calcium Adj for Albumin 9.0 Magnesium 2.0 Total Bilirubin 0.3 AST 24 ALT 9 L Alkaline Phosphatase 73 C-Reactive Protein Total Protein 6.6 Albumin 1.7 L Procalcitonin 10/21/18 10/21/18 10/21/18 13:14 13:14 13:14 Sodium Potassium Chloride Carbon Dioxide Anion Gap BUN Creatinine Estimated GFR Random Glucose Uric Acid 1.6 L Calcium Calcium Adj for Albumin Magnesium Total Bilirubin AST ALT Alkaline Phosphatase C-Reactive Protein 13.00 H Total Protein Albumin Procalcitonin 0.15 H 10/22/18 03:03 Sodium Potassium 3.6 D Chloride Carbon Dioxide Anion Gap BUN Creatinine 0.52 L Estimated GFR Greater than 89 Random Glucose Uric Acid Calcium Calcium Adj for Albumin Magnesium Total Bilirubin AST ALT Alkaline Phosphatase C-Reactive Protein Total Protein Albumin Procalcitonin Imaging: ITS Impressions Cervical Spine CT 10/15/18 13:26 CONCLUSION: 1. No acute fracture or subluxation. 2. Partially imaged large cavitary lesion in the left lung apex. Chest CT to follow. 3. Multilevel degenerative spondylosis of the cervical spine. Abdomen/Pelvis CT 10/15/18 15:27 CONCLUSION: 1. Extensive wall thickening urinary bladder, neoplastic process should be excluded. 2. Diverticulosis without diverticulitis. 3. Bilateral nonobstructing renal calculi. 4. Left basilar infiltrate. Chest CT 10/15/18 15:27 CONCLUSION: 1. Prominent cavitary mass along the anterior lateral left upper lung. This could be inflammatory/infectious versus neoplastic. It is nonspecific. 2. Patchy areas of consolidation seen at the posterior left lower lung with some lesser degree of cavitary change. This most closely resembles postinflammatory change although is nonspecific. 3. Small nodules measuring less than 5 mm at the anterior left lower lung and at the right middle lobe. These are nonspecific. They can be followed. 4. Significant adenopathy is not seen. Carotid Doppler Study 10/16/18 10:06 CONCLUSION: Negative examination for a hemodynamically significant carotid stenosis. Gianni Raymundo MD FACR Head CT 10/17/18 00:00 CONCLUSION: 1. Stable exam as detailed above. . Knee X-Ray 10/21/18 00:00 CONCLUSION: 1. Chronic irregularity of the superior pole along the patella with apparent ossification. There is adjacent mild soft tissue prominence. 2. Remote postsurgical changes in the proximal tibia. Chest X-Ray 10/21/18 06:00 CONCLUSION: No significant interval change in left lung opacity. Physical Exam: GENERAL: Patient is on the ventilator. HEENT: Pupils reactive to light. Extraocular movements intact. No icterus. NECK: Supple without adenopathy. No swelling. LUNGS: Bibasilar rhonchi. HEART: Regular S1-S2 without murmurs rubs or gallops. ABDOMEN: Bowel sounds present, soft, no tenderness appreciated. EXTREMITIES: No clubbing cyanosis or edema. SKIN: No diffuse rash. NEUROLOGIC: Unable to assess. PSYCH: Unable to assess. Assessment and Plan - Plan Positive AFB in sputum with lung cavity: DDx: Pulm TB vs Atypical mycobacteria with secondary bacterial infection of cavity. PCR and DNA testing on AFB and sputum reveals that it is not tuberculosis. Spoke with microbiology. Encephalopathy Traumatic subdural hemorrhage/subarachnoid hemorrhage with skull base fracture Anemia-most likely acute on chronic blood loss related Sepsis Pneumonia Left upper lobe cavitary lesion-mass versus infectious versus other inflammatory process Recommend: Start Ceftriaxone IV q12hrs for Basilar skull fracture antibiotic prophylaxis. Above regimen covers Skull base fracture prophylaxis and also secondary bacterial infection of lung cavity. Follow cultures follow clinical course. Discussed with YRIS.
--- NOTE | 2018-10-22 17:11 | P.PNPAL ---
Reason for Visit Reason for visit: a. To assist with evaluation and management of symptoms including: Pain, dyspnea b. To assist medical decision maker(s) with: better understanding of current medical conditions; weighing benefits/burdens of medical treatment options; making medical treatment decisions. Subjective Subjective/Interval History: This is a 53-year-old male who presented as a trauma alert secondary to fall. He was found down at home. EMS attempted to obtain an airway in the field due to his altered mental status however patient was clenching his teeth after being given Versed and etomidate. Upon arrival to the ED he was noted to have a GCS of 8 and was intubated for airway protection. He also had NG tube placed with large amount of coffee-ground gastric drainage returned. He was noted to have a hemoglobin of 5.5. Family reporting long history of alcohol and substance abuse. Patient was reportedly drinking an average of a 12 pack of beer a day. He was admitted to the tobacco flavorer, neurosurgery was consulted for intracranial hemorrhage, GI was consulted for upper GI bleed, urology was consulted due to bladder wall thickening and renal calculi, pulmonology was consulted for lung mass finding, infectious disease was consulted for AFB positive sputum cultures. Patient had ICP monitor placed, ICPs have been stable. Hemoglobin improved with 2 units of RBCs to 9.2 but is now downtrending to 7.8. ABGs essentially unchanged aside from slight improvement and hemoglobin. Initial ED course: * Brain CT: 1. Mild subdural hemorrhage seen at the right frontal region, left tentorium, left anterior falx, and left temporal region. The left temporal region hemorrhage could also be subarachnoid hemorrhage.2. Suspected skull base fracture around the sphenoid sinus and at the anterior inferior aspect of the right middle cranial fossa. There appears to be air within the suprasellar cistern region. * Cervical spine CT: No acute fracture or subluxation. Degenerative spondylolysis. Partial image of large cavitary lesion of the left lung apex * Chest CT: 1. Prominent cavitary mass along the anterior lateral left upper lung. This could be inflammatory/infectious versus neoplastic. It is nonspecific. 2. Patchy areas of consolidation seen at the posterior left lower lung with some lesser degree of cavitary change. This most closely resembles postinflammatory change although is nonspecific. 3. Small nodules measuring less than 5 mm at the anterior left lower lung and at the right middle lobe. These are nonspecific. They can be followed. 4. Significant adenopathy is not seen. * Abdomen CT: 1. Extensive wall thickening urinary bladder, neoplastic process should be excluded. 2. Diverticulosis without diverticulitis. 3. Bilateral nonobstructing renal calculi. 4. Left basilar infiltrate. * Sputum culture: Positive for AFB * Labs: WBC 20.6, hemoglobin 5.5, hematocrit 17.1, sodium 140, potassium 3.9, chloride 107, carbon dioxide 23.2, BUN 27, creatinine 0.76, GFR greater than 89 , glucose 175, calcium 6.9, AST/ALT 50/18, alkaline phosphatase 74, troponin less than 0.02, protein 6.5, albumin 2.2, lactic acid 4.5. * ABG: PH 7.5, CO2 32, PO2 44, bicarb 24, hemoglobin 6.5 * Urine tox screen: Positive for amphetamines, benzodiazepines, cannabinoids, alcohol less than 3 Additional history: * EEG 10/16: Consistent with moderate to severe encephalopathy * Carotid Doppler study 10/16: Negative study * 2D echo 10/16: EF 55-60% * Follow-up brain CT 10/17/18 was stable At time of my visit today, patient has been medically extubated. He is restless and agitated in bed. He answers most questions appropriately, other questions stares blankly at you, some questions he just states "you know." He is now able to follow simple commands weakly except with left upper extremity. I suspect he may have had minimal use of that arm prior to this hospitalization due to multiple surgeries and injuries to the extremity. Bedside nurses states he has been restless most of the day he is now on Precedex drip. Sister was here today who is requesting staff limit pain medications. Family/Friend Interactions: No family available at bedside. Per bedside nurse Sister Leydi was here today but had just left prior to my visit. Objective Vital Signs: Vital Signs 10/21/18 17:12 10/21/18 17:30 10/21/18 18:00 Temperature Pulse Rate 71 70 Respiratory Rate 22 19 23 Blood Pressure 117/74 104/64 Pulse Oximetry 100 100 100 10/21/18 18:30 10/21/18 19:00 10/21/18 19:30 Temperature Pulse Rate 68 71 96 H Respiratory Rate 22 23 22 Blood Pressure 113/72 107/67 144/81 H Pulse Oximetry 100 100 98 10/21/18 19:52 10/21/18 20:00 10/21/18 20:30 Temperature 101.2 F H Pulse Rate 74 93 H Respiratory Rate 20 20 23 Blood Pressure 119/73 133/81 Pulse Oximetry 100 99 98 10/21/18 21:00 10/21/18 21:30 10/21/18 22:00 Temperature Pulse Rate 81 81 84 Respiratory Rate 18 16 23 Blood Pressure 102/65 97/62 L 135/82 Pulse Oximetry 96 98 100 10/21/18 22:30 10/21/18 23:00 10/21/18 23:30 Temperature Pulse Rate 88 83 90 Respiratory Rate 21 20 24 Blood Pressure 121/78 118/78 132/81 Pulse Oximetry 99 99 99 10/22/18 00:00 10/22/18 00:06 10/22/18 00:12 Temperature 99.0 F Pulse Rate 84 67 Respiratory Rate 21 16 17 Blood Pressure 121/77 107/69 Pulse Oximetry 98 97 98 10/22/18 00:30 10/22/18 01:00 10/22/18 01:30 Temperature Pulse Rate 63 57 L 61 Respiratory Rate 14 14 24 Blood Pressure 116/75 119/80 131/83 Pulse Oximetry 98 99 100 10/22/18 02:00 10/22/18 02:30 10/22/18 03:00 Temperature Pulse Rate 53 L 52 L 65 Respiratory Rate 14 14 21 Blood Pressure 132/83 134/85 128/81 Pulse Oximetry 99 100 100 10/22/18 03:30 10/22/18 03:58 10/22/18 04:00 Temperature 97.6 F Pulse Rate 55 L 56 L Respiratory Rate 15 14 14 Blood Pressure 136/77 139/83 Pulse Oximetry 100 99 99 10/22/18 04:30 10/22/18 05:00 10/22/18 05:30 Temperature Pulse Rate 62 59 L 60 Respiratory Rate 20 16 17 Blood Pressure 131/79 117/74 125/78 Pulse Oximetry 100 99 100 10/22/18 06:00 10/22/18 06:30 10/22/18 06:32 Temperature Pulse Rate 59 L 76 77 Respiratory Rate 16 27 H 25 H Blood Pressure 121/77 165/101 H 160/99 H Pulse Oximetry 99 100 100 10/22/18 07:00 10/22/18 07:30 10/22/18 07:41 Temperature 98.9 F Pulse Rate 78 83 Respiratory Rate 25 H 28 H 17 Blood Pressure 154/99 H 163/97 H Pulse Oximetry 100 100 100 10/22/18 08:00 10/22/18 08:30 10/22/18 09:00 Temperature 98.9 F Pulse Rate 84 83 64 Respiratory Rate 31 H 32 H 24 Blood Pressure 149/79 H 131/89 114/71 Pulse Oximetry 98 99 99 10/22/18 09:30 10/22/18 10:00 10/22/18 10:30 Temperature Pulse Rate 58 L 57 L 72 Respiratory Rate 23 22 22 Blood Pressure 119/73 131/78 145/87 H Pulse Oximetry 100 100 100 10/22/18 11:00 10/22/18 11:30 10/22/18 12:00 Temperature 99.8 F H Pulse Rate 73 71 76 Respiratory Rate 26 H 17 17 Blood Pressure 142/85 H 128/78 126/78 Pulse Oximetry 100 100 100 10/22/18 12:30 10/22/18 13:00 10/22/18 13:30 Temperature Pulse Rate 79 85 85 Respiratory Rate 17 24 23 Blood Pressure 132/79 144/82 H 127/77 Pulse Oximetry 100 100 100 10/22/18 14:00 10/22/18 14:30 10/22/18 15:00 Temperature 99.4 F 99.4 F 99.4 F Pulse Rate 82 82 80 Respiratory Rate 23 24 21 Blood Pressure 133/79 128/74 128/84 Pulse Oximetry 100 100 100 10/22/18 15:30 10/22/18 16:00 Temperature Pulse Rate 76 84 Respiratory Rate 20 21 Blood Pressure 129/73 132/78 Pulse Oximetry 100 99 Intake & Output 10/21/18 10/22/18 10/22/18 18:59 06:59 18:59 Intake Total 1467.5 / 1467.5 1900 / 1900 2154 Output Total 975 / 975 400 / 400 Balance 492.5 / 492.5 1500 / 1500 2154 Weight 57.9 kg Intake: IV 1267.5 / 1267.5 1322 / 1322 2154 Precedex Inj 200 MCG In NS Inj 92 / 92 50 / 50 48 ML @ 0.2 MCG/KG/HR 3.05 mls/ hr IV.CONT TITRATE PRN Rx#: [id number] Diprivan 1000 mg/100 ml Inj 1, 100 / 100 000 mg In 100 ml @ 5 MCG/KG/MIN 2.4 mls/hr IV.CONT TITRATE PRN Rx#:[id number] NS Inj 1,000 ML @ 75 mls/hr IV. 825 / 825 1999 / 1999 CONT .[id number] TOAN Rx#:[id number] KCl 20 mEq Premix Inj 20 meq In 400 / 400 200 / 200 100 ml @ 50 mls/hr IV.SIG Q2H PRN Rx#:[id number] Vancomycin Inj 1,250 MG In NS 262.5 / 262.5 Inj 250 ML @ 250 mls/hr IV.SIG Q12H TOAN Rx#:[id number] Tazicef Inj 1,000 MG In NS Inj 100 / 100 100 ML @ 200 mls/hr IV.SIG Q8H TOAN Rx#:[id number] Rocephin Inj 2,000 MG In NS Inj 100 / 100 100 / 100 100 ML @ 200 mls/hr IV.SIG Q12H TOAN Rx#:[id number] Keppra Inj 500 MG In NS Inj 100 105 / 105 105 / 105 105 / 105 ML @ 400 mls/hr IV.SIG Q12H TOAN Rx#:[id number] Flagyl 500 MG Inj 100 ML @ 100 100 / 100 mls/hr IV.SIG Q8H TOAN Rx#: [id number] Tube Feeding 200 / 200 578 / 578 Output: Urine Amount (Catheter) 975 / 975 400 / 400 Condom 400 / 400 Indwelling Urethral Catheter 975 / 975 Other: Date of Last Bowel Movement 10/20/18 10/20/18 10/22/18 Physical Exam: CONSTITUTIONAL/GENERAL: Cachectic male who is restless TUBES/LINES/DRAINS: Peripheral IV SKIN: Right periorbital ecchymosis, multiple scars bilateral upper extremities multiple lesions in different stages of healing bilateral upper extremities EYES: Pupils equal and reactive to light ENT: Poor dentition, speech is soft CARDIOVASCULAR: Regular rate and rhythm without murmurs, gallops, or rubs. No JVD. Peripheral pulses symmetric. RESPIRATORY/CHEST: Breath sounds equal bilaterally, some scattered rhonchi GASTROINTESTINAL: Abdomen soft, non-tender, nondistended. No hepato-splenomegaly , or palpable masses. GENITOURINARY: Without palpable bladder distension. MUSCULOSKELETAL: Moving all extremities weakly except left upper extremity. NEUROLOGICAL: Drowsy. Follow simple commands. Answers most questions appropriately. PSYCHIATRIC: Restless and agitated. Diagnostic Tests Laboratory: Laboratory Results - last 72 hr 10/18/18 10/20/18 10/20/18 10:26 03:45 03:45 WBC 14.5 H RBC 3.29 L Hgb 10.2 L Hct 28.8 L MCV 87.7 MCH 31.0 MCHC 35.3 RDW 15.9 Plt Count 450 D MPV 8.2 Prelim Diff (Auto) Neut % (Auto) 78.9 H Lymph % (Auto) 8.7 L [place] % (Auto) 10.4 H Eos % (Auto) 1.3 Baso % (Auto) 0.7 Neut # (Auto) 11.4 H Lymph # (Auto) 1.3 [place] # (Auto) 1.5 H Eos # (Auto) 0.2 Baso # (Auto) 0.1 WBC Differential . Diff Scan Differential Comment Auto diff final Platelet Morphology Sodium Potassium Chloride Carbon Dioxide Anion Gap BUN Creatinine 0.60 Estimated GFR Greater than 89 Random Glucose Uric Acid Calcium Calcium Adj for Albumin Magnesium Total Bilirubin AST ALT Alkaline Phosphatase Ammonia C-Reactive Protein Total Protein Albumin Procalcitonin TSH ELLY Screen Neg 10/20/18 10/20/18 10/20/18 09:20 09:20 09:20 WBC RBC Hgb Hct MCV MCH MCHC RDW Plt Count MPV Prelim Diff (Auto) Neut % (Auto) Lymph % (Auto) [place] % (Auto) Eos % (Auto) Baso % (Auto) Neut # (Auto) Lymph # (Auto) [place] # (Auto) Eos # (Auto) Baso # (Auto) WBC Differential Diff Scan Differential Comment Platelet Morphology Sodium 143 Potassium 2.2 L* Chloride 108 H Carbon Dioxide 27.1 Anion Gap 8 BUN 6 L Creatinine 0.58 L Estimated GFR Greater than 89 Random Glucose 143 H Uric Acid Calcium 7.4 L* Calcium Adj for Albumin 9.2 Magnesium 1.8 Cancelled Total Bilirubin 0.5 AST 19 ALT 8 L Alkaline Phosphatase 70 Ammonia 26 C-Reactive Protein Total Protein 6.3 L Albumin 1.7 L Procalcitonin TSH 1.200 ELLY Screen 10/20/18 10/20/18 10/21/18 09:20 23:36 03:53 WBC 17.2 H RBC 3.38 L Hgb 10.2 L Hct 30.1 L MCV 89.0 MCH 30.3 MCHC 34.0 RDW 15.6 Plt Count 453 H MPV 8.7 Prelim Diff (Auto) Slide review pending Neut % (Auto) 75.7 H Lymph % (Auto) 10.1 [place] % (Auto) 11.1 H Eos % (Auto) 2.3 Baso % (Auto) 0.8 Neut # (Auto) 13.0 H Lymph # (Auto) 1.7 [place] # (Auto) 1.9 H Eos # (Auto) 0.4 Baso # (Auto) 0.1 WBC Differential . Diff Scan Auto diff confirmed Differential Comment . Platelet Morphology Enlarged H Sodium Potassium 2.2 L* Chloride Carbon Dioxide Anion Gap BUN Creatinine Estimated GFR Random Glucose Uric Acid Calcium Calcium Adj for Albumin Magnesium Total Bilirubin AST ALT Alkaline Phosphatase Ammonia C-Reactive Protein Total Protein Albumin Procalcitonin TSH Cancelled ELLY Screen 10/21/18 10/21/18 10/21/18 03:53 13:14 13:14 WBC RBC Hgb Hct MCV MCH MCHC RDW Plt Count MPV Prelim Diff (Auto) Neut % (Auto) Lymph % (Auto) [place] % (Auto) Eos % (Auto) Baso % (Auto) Neut # (Auto) Lymph # (Auto) [place] # (Auto) Eos # (Auto) Baso # (Auto) WBC Differential Diff Scan Differential Comment Platelet Morphology Sodium 145 Potassium 3.0 L D 2.7 L* Chloride 110 H Carbon Dioxide 28.0 Anion Gap 7 BUN 8 Creatinine 0.61 Estimated GFR Greater than 89 Random Glucose 140 H Uric Acid 1.6 L Calcium 7.2 L* Calcium Adj for Albumin 9.0 Magnesium 2.0 Total Bilirubin 0.3 AST 24 ALT 9 L Alkaline Phosphatase 73 Ammonia C-Reactive Protein Total Protein 6.6 Albumin 1.7 L Procalcitonin TSH ELLY Screen 10/21/18 10/21/18 10/22/18 13:14 13:14 03:03 WBC 13.1 H RBC 3.15 L Hgb 9.8 L Hct 28.8 L MCV 91.4 MCH 31.2 MCHC 34.1 RDW 15.8 Plt Count 476 H MPV 9.0 Prelim Diff (Auto) Neut % (Auto) 72.0 H Lymph % (Auto) 13.4 [place] % (Auto) 10.2 H Eos % (Auto) 3.2 Baso % (Auto) 1.2 Neut # (Auto) 9.4 H Lymph # (Auto) 1.8 [place] # (Auto) 1.3 H Eos # (Auto) 0.4 Baso # (Auto) 0.2 WBC Differential . Diff Scan Differential Comment Auto diff final Platelet Morphology Sodium Potassium Chloride Carbon Dioxide Anion Gap BUN Creatinine Estimated GFR Random Glucose Uric Acid Calcium Calcium Adj for Albumin Magnesium Total Bilirubin AST ALT Alkaline Phosphatase Ammonia C-Reactive Protein 13.00 H Total Protein Albumin Procalcitonin 0.15 H TSH ELLY Screen 10/22/18 03:03 WBC RBC Hgb Hct MCV MCH MCHC RDW Plt Count MPV Prelim Diff (Auto) Neut % (Auto) Lymph % (Auto) [place] % (Auto) Eos % (Auto) Baso % (Auto) Neut # (Auto) Lymph # (Auto) [place] # (Auto) Eos # (Auto) Baso # (Auto) WBC Differential Diff Scan Differential Comment Platelet Morphology Sodium Potassium 3.6 D Chloride Carbon Dioxide Anion Gap BUN Creatinine 0.52 L Estimated GFR Greater than 89 Random Glucose Uric Acid Calcium Calcium Adj for Albumin Magnesium Total Bilirubin AST ALT Alkaline Phosphatase Ammonia C-Reactive Protein Total Protein Albumin Procalcitonin TSH ELLY Screen Result Diagrams: 10/22/18 03:03 10/22/18 03:03 Microbiology: Microbiology 10/21/18 12:40 Fungal Smear - Final Bronchial Washings - Left Upper Lobe No fungal elements seen 10/21/18 12:40 Gram Stain - Final Bronchial - Left Upper Lobe Bronchial Culture - Preliminary Staphylococcus aureus 10/21/18 12:40 Bronchial [place] Culture - Preliminary Bronchial Brushings - Left Upper Lobe No growth in 24 hours 10/21/18 13:22 Aerobic Blood Culture - Preliminary Blood - Peripheral No growth in 1 day Anaerobic Blood Culture - Preliminary No growth in 1 day 10/21/18 13:14 Aerobic Blood Culture - Preliminary Blood - Peripheral No growth in 1 day Anaerobic Blood Culture - Preliminary No growth in 1 day 10/18/18 07:05 Aerobic Blood Culture - Preliminary Blood - Peripheral No growth in 4 days Anaerobic Blood Culture - Preliminary No growth in 4 days 10/18/18 07:55 Aerobic Blood Culture - Preliminary Blood - Peripheral No growth in 4 days Anaerobic Blood Culture - Preliminary No growth in 4 days 10/15/18 17:44 Acid Fast Bacilli Smear - Final Sputum - Endotracheal Acid Fast Bacilli Seen Mycobacterial Culture - Preliminary 10/15/18 18:59 Aerobic Blood Culture - Final Blood - Peripheral No growth in 5 days Anaerobic Blood Culture - Final No growth in 5 days 10/15/18 13:45 Aerobic Blood Culture - Final Blood - Peripheral No growth in 5 days Anaerobic Blood Culture - Final No growth in 5 days Procedures: 10/15/18: Intubated, bolt placed 10/16/18: EEG, no evidence of seizures 10/18/18: Both removed 10/21/18: Bronchoscopy Assessment and Plan - Symptom Scale (1) Anxiety 0-10 Scale: Unable to quantify (2) Dyspnea 0-10 Scale: Unable to quantify (3) Pain 0-10 Scale: Unable to quantify (4) Confusion 0-10 Scale: Unable to quantify Pertinent Non-Medical Issues: Psychosocial: Patient was living independently with a roommate prior to history of alcohol and substance abuse. He has been incarcerated several times. Spiritual: [employer] available. Legal: Patient appears to have poor insight into his illness, questionable capacity to make his own decisions. Per legal, POA paperwork previously produced not valid for healthcare decisions. Per [place] statutes, decision making falls to the majority of patients 4 sisters. Ethical issues impacting care: None Important Contacts: GIANCARLO Agrawal [phone] Sister Edith [phone] Sister Leydi ([facility]) [phone] Sister Vira [phone] ([place]) Sister Reji [phone] ([place]) Prognosis: Given long history of alcohol and substance abuse patient at risk for setbacks. Withdrawal may also contribute to worsening of intracranial hemorrhage and/or respiratory status. Patient likely will survive this hospitalization though may have residual cognitive and functional deficits. Code Status: Full Code Plan: Legal decision maker: Patient appears to have limited capacity at best, best supported by his sisters and decision making.Per legal, POA paperwork previously produced not valid for healthcare decisions. Per [place] statutes, decision making falls to the majority of patients 4 sisters. Goals: Goals remain aggressive at this time. Family seems to be having difficulty understanding nature of invasive procedures, allowing some but questioning others. Need to continue to reexplore in the coming days. Patient now extubated, will likely need to address feeding tube in coming days if patient fails swallow evaluation is pending CODE STATUS: FULL CODE SYMPTOMS: --Dyspnea: Now extubated on 2 L nasal cannula. Appears comfortable. Has long history of positive AFB cultures. At risk for respiratory distress/failure secondary to alcohol withdrawal. May likely be medically extubated in the coming days. Had bronchoscopy today, no lung mass found. --Anxiety: Currently sedated but remains restless and agitated with Precedex. At risk for anxiety secondary to hospitalization, alcohol withdrawal, and neuro status. Has withdrawal protocol and Haldol in place. Will need to continue to monitor closely in the coming days. Palliative care will continue to follow during hospital course as condition evolves, to assist patient/decision-maker with understanding of medical conditions, weighing benefits/burdens of treatment options, for clarification of goals of treatment. Additionally will assist with any symptoms of palliative concern
[2018-10-22] MEDS ORDERED: Haloperidol Inj 5 MG/ML Ampul IV.PUSH PRN (17:33)
--- NOTE | 2018-10-22 18:51 | P.PN ---
Subjective Interval history: He is more awake and responds to some questions. On CPAP and doing better. Bronch wash shows Staph aureus from left lung Physical Exam Vital signs: Vital Signs 10/21/18 19:00 10/21/18 19:30 10/21/18 19:52 Temperature Pulse Rate 71 96 H Respiratory Rate 23 22 20 Blood Pressure 107/67 144/81 H Pulse Oximetry 100 98 100 10/21/18 20:00 10/21/18 20:30 10/21/18 21:00 Temperature 101.2 F H Pulse Rate 74 93 H 81 Respiratory Rate 20 23 18 Blood Pressure 119/73 133/81 102/65 Pulse Oximetry 99 98 96 10/21/18 21:30 10/21/18 22:00 10/21/18 22:30 Temperature Pulse Rate 81 84 88 Respiratory Rate 16 23 21 Blood Pressure 97/62 L 135/82 121/78 Pulse Oximetry 98 100 99 10/21/18 23:00 10/21/18 23:30 10/22/18 00:00 Temperature 99.0 F Pulse Rate 83 90 84 Respiratory Rate 20 24 21 Blood Pressure 118/78 132/81 121/77 Pulse Oximetry 99 99 98 10/22/18 00:06 10/22/18 00:12 10/22/18 00:30 Temperature Pulse Rate 67 63 Respiratory Rate 16 17 14 Blood Pressure 107/69 116/75 Pulse Oximetry 97 98 98 10/22/18 01:00 10/22/18 01:30 10/22/18 02:00 Temperature Pulse Rate 57 L 61 53 L Respiratory Rate 14 24 14 Blood Pressure 119/80 131/83 132/83 Pulse Oximetry 99 100 99 10/22/18 02:30 10/22/18 03:00 10/22/18 03:30 Temperature Pulse Rate 52 L 65 55 L Respiratory Rate 14 21 15 Blood Pressure 134/85 128/81 136/77 Pulse Oximetry 100 100 100 10/22/18 03:58 10/22/18 04:00 10/22/18 04:30 Temperature 97.6 F Pulse Rate 56 L 62 Respiratory Rate 14 14 20 Blood Pressure 139/83 131/79 Pulse Oximetry 99 99 100 10/22/18 05:00 10/22/18 05:30 10/22/18 06:00 Temperature Pulse Rate 59 L 60 59 L Respiratory Rate 16 17 16 Blood Pressure 117/74 125/78 121/77 Pulse Oximetry 99 100 99 10/22/18 06:30 10/22/18 06:32 10/22/18 07:00 Temperature 98.9 F Pulse Rate 76 77 78 Respiratory Rate 27 H 25 H 25 H Blood Pressure 165/101 H 160/99 H 154/99 H Pulse Oximetry 100 100 100 10/22/18 07:30 10/22/18 07:41 10/22/18 08:00 Temperature 98.9 F Pulse Rate 83 84 Respiratory Rate 28 H 17 31 H Blood Pressure 163/97 H 149/79 H Pulse Oximetry 100 100 98 10/22/18 08:30 10/22/18 09:00 10/22/18 09:30 Temperature Pulse Rate 83 64 58 L Respiratory Rate 32 H 24 23 Blood Pressure 131/89 114/71 119/73 Pulse Oximetry 99 99 100 10/22/18 10:00 10/22/18 10:30 10/22/18 11:00 Temperature Pulse Rate 57 L 72 73 Respiratory Rate 22 22 26 H Blood Pressure 131/78 145/87 H 142/85 H Pulse Oximetry 100 100 100 10/22/18 11:30 10/22/18 12:00 10/22/18 12:30 Temperature 99.8 F H Pulse Rate 71 76 79 Respiratory Rate 17 17 17 Blood Pressure 128/78 126/78 132/79 Pulse Oximetry 100 100 100 10/22/18 13:00 10/22/18 13:30 10/22/18 14:00 Temperature 99.4 F Pulse Rate 85 85 82 Respiratory Rate 24 23 23 Blood Pressure 144/82 H 127/77 133/79 Pulse Oximetry 100 100 100 10/22/18 14:30 10/22/18 15:00 10/22/18 15:30 Temperature 99.4 F 99.4 F Pulse Rate 82 80 76 Respiratory Rate 24 21 20 Blood Pressure 128/74 128/84 129/73 Pulse Oximetry 100 100 100 10/22/18 16:00 10/22/18 16:30 10/22/18 17:00 Temperature 99.1 F Pulse Rate 84 82 78 Respiratory Rate 21 24 22 Blood Pressure 132/78 122/78 123/75 Pulse Oximetry 99 100 98 10/22/18 17:30 10/22/18 18:00 Temperature 99.1 F Pulse Rate 79 68 Respiratory Rate 22 19 Blood Pressure 123/73 127/83 Pulse Oximetry 100 100 Intake & Output 10/21/18 10/22/18 10/22/18 18:59 06:59 18:59 Intake Total 1467.5 / 1467.5 1900 / 1900 2305 / 2305 Output Total 975 / 975 400 / 400 850 / 850 Balance 492.5 / 492.5 1500 / 1500 1455 / 1455 Weight 57.9 kg Intake: IV 1267.5 / 1267.5 1322 / 1322 2305 / 2305 Precedex Inj 200 MCG In NS Inj 92 / 92 100 / 100 48 ML @ 0.2 MCG/KG/HR 3.05 mls/ hr IV.CONT TITRATE PRN Rx#: [id number] Diprivan 1000 mg/100 ml Inj 1, 100 / 100 000 mg In 100 ml @ 5 MCG/KG/MIN 2.4 mls/hr IV.CONT TITRATE PRN Rx#:[id number] NS Inj 1,000 ML @ 75 mls/hr IV. 825 / 825 1999 CONT .[id number] [facility] Rx#:[id number] KCl 20 mEq Premix Inj 20 meq In 400 / 400 200 / 200 100 ml @ 50 mls/hr IV.SIG Q2H PRN Rx#:[id number] Vancomycin Inj 1,250 MG In NS 262.5 / 262.5 Inj 250 ML @ 250 mls/hr IV.SIG Q12H [facility] Rx#:[id number] Tazicef Inj 1,000 MG In NS Inj 100 / 100 100 ML @ 200 mls/hr IV.SIG Q8H [facility] Rx#:[id number] Rocephin Inj 2,000 MG In NS Inj 100 / 100 100 / 100 100 / 100 100 ML @ 200 mls/hr IV.SIG Q12H [facility] Rx#:[id number] Keppra Inj 500 MG In NS Inj 100 105 / 105 105 / 105 105 / 105 ML @ 400 mls/hr IV.SIG Q12H [facility] Rx#:[id number] Flagyl 500 MG Inj 100 ML @ 100 100 / 100 mls/hr IV.SIG Q8H [facility] Rx#: [id number] Oral 0 / 0 Tube Feeding 200 / 200 578 / 578 0 / 0 Output: Urine Amount (Catheter) 975 / 975 400 / 400 850 / 850 Condom 400 / 400 850 / 850 Indwelling Urethral Catheter 975 / 975 Other: Date of Last Bowel Movement 10/20/18 10/20/18 10/22/18 # Bowel Movements 2 # Incontinent Bowel Movements 2 Narrative: intubated GENERAL: Awake and in no distress SKIN: Warm and dry. HEAD: Atraumatic. Normocephalic. EYES: . No scleral icterus. Right eye shut with injection and drainage. ENT: No nasal bleeding or discharge. Mucous membranes pink and moist. NECK: Trachea midline. No JVD. CARDIOVASCULAR: Regular rate and rhythm. RESPIRATORY: No accessory muscle use. occ wheeze upper chest. Breath sounds equal bilaterally. GASTROINTESTINAL: Abdomen soft, non-tender, nondistended. Hepatic and splenic margins not palpable. MUSCULOSKELETAL: Extremities without clubbing, cyanosis, or edema. No obvious deformities. NEUROLOGICAL: Awake and responds PSYCHIATRIC: cannot assess - Urinary Catheter Management Indwelling Urethral Catheter Cath placed during this visit: yes, but has since been removed by the nurse Urethral indwelling: Yes Reason for continuing: Decision to DC catheter Insertion date: 10/15/18 Insertion time: 14:00 Removal date: 10/21/18 Removal time: 18:00 Condom Cath placed during this visit: yes Reason for continuing: Not indwelling catheter Insertion date: 10/21/18 Insertion time: 18:00 Results - Labs CBC & Chem 7: 10/22/18 03:03 10/22/18 03:03 Laboratory Results - last 24 hr 10/22/18 10/22/18 03:03 03:03 WBC 13.1 H RBC 3.15 L Hgb 9.8 L Hct 28.8 L MCV 91.4 MCH 31.2 MCHC 34.1 RDW 15.8 Plt Count 476 H MPV 9.0 Neut % (Auto) 72.0 H Lymph % (Auto) 13.4 [place] % (Auto) 10.2 H Eos % (Auto) 3.2 Baso % (Auto) 1.2 Neut # (Auto) 9.4 H Lymph # (Auto) 1.8 [place] # (Auto) 1.3 H Eos # (Auto) 0.4 Baso # (Auto) 0.2 WBC Differential . Differential Comment Auto diff final Potassium 3.6 D Creatinine 0.52 L Estimated GFR Greater than 89 Microbiology 10/21/18 12:40 Bronchial Washings - Left Upper Lobe Fungal Smear - Final No fungal elements seen 10/21/18 12:40 Bronchial - Left Upper Lobe Gram Stain - Final 10/21/18 12:40 Bronchial - Left Upper Lobe Bronchial Culture - Preliminary Staphylococcus aureus 10/21/18 12:40 Bronchial Brushings - Left Upper Lobe Bronchial [place] Culture - Preliminary No growth in 24 hours 10/21/18 13:22 Blood - Peripheral Aerobic Blood Culture - Preliminary No growth in 1 day 10/21/18 13:22 Blood - Peripheral Anaerobic Blood Culture - Preliminary No growth in 1 day 10/21/18 13:14 Blood - Peripheral Aerobic Blood Culture - Preliminary No growth in 1 day 10/21/18 13:14 Blood - Peripheral Anaerobic Blood Culture - Preliminary No growth in 1 day 10/18/18 07:05 Blood - Peripheral Aerobic Blood Culture - Preliminary No growth in 4 days 10/18/18 07:05 Blood - Peripheral Anaerobic Blood Culture - Preliminary No growth in 4 days 10/18/18 07:55 Blood - Peripheral Aerobic Blood Culture - Preliminary No growth in 4 days 10/18/18 07:55 Blood - Peripheral Anaerobic Blood Culture - Preliminary No growth in 4 days 10/15/18 17:44 Sputum - Endotracheal Acid Fast Bacilli Smear - Final Acid Fast Bacilli Seen 10/15/18 17:44 Sputum - Endotracheal Mycobacterial Culture - Preliminary Assessment and Plan - Assessment (1) Subdural hematoma, post-traumatic Code(s): S06.5X9A - Traumatic subdural hemorrhage with loss of consciousness of unspecified duration, initial encounter Status: Acute (2) Intracerebral hemorrhage Code(s): I61.9 - Nontraumatic intracerebral hemorrhage, unspecified Status: Acute (3) COPD (chronic obstructive pulmonary disease) Code(s): J44.9 - Chronic obstructive pulmonary disease, unspecified Status: Acute (4) Cavitating mass of lung Code(s): J98.4 - Other disorders of lung Status: Acute (5) Pneumonia Code(s): J18.9 - Pneumonia, unspecified organism Status: Acute (6) GI bleed Code(s): K92.2 - Gastrointestinal hemorrhage, unspecified Status: Acute (7) Anemia Code(s): D64.9 - Anemia, unspecified Status: Acute - Plan 1. Wean vent and extubate if stable. 2. CXR in am. 3. Duoneb nebs qid. 4. Continue antibiotics as ordered.Add vanco for staph 5. CBC,BMP. 6. No sedation. 7. Continue levetiracetam.
--- NOTE | 2018-10-22 20:16 | MG ---
cc: Evaristo Coley MD, PhD TEST NUMBER: [id number] TECHNIQUE: A 17-channel EEG DESCRIPTION: The background rhythm is generally slow in the delta frequency of 3-4 Hz. Amplitude is 20-30 microvolts. No lateralizing features are identified and no epileptiform features are identified. Rare muscle artifact identified. Photic resulted in no driving response. INTERPRETATION: Abnormal study consistent with a severe encephalopathy. Evaristo Coley MD, PhD RIDGE/ct , 07:33 PM , 07:37 PM
[2018-10-22] MEDS: Vancomycin Inj 1,250 MG in Sodium Chlor 0.9% Inj 250 ML IV.SIG SCH (20:58)
[2018-10-23 04:44] LABS: Baso # (Auto) 0.1 th/mm3 (0.0-0.2); Baso % (Auto) 0.8 % (0.0-2.0); Eos % (Auto) 0.1 % (0.0-4.0); Hematocrit 29.3 % (39.0-51.0); Hemoglobin 9.8 gm/dL (13.0-17.0); Lymph # (Auto) 1.7 th/mm3 (1.0-4.8); Lymph % (Auto) 13.8 % (9.0-44.0); Mean Corpuscular HGB Conc 33.6 % (32.0-36.0); Mean Corpuscular Hemoglobin 30.5 pg (27.0-34.0); Mean Corpuscular Volume 90.7 fL (80.0-100.0); Mean Platelet Volume 8.8 fL (7.0-11.0); Mono % (Auto) 8.2 % (0.0-8.0); Neut # (Auto) 9.4 th/mm3 (1.8-7.7); Neut % (Auto) 77.1 % (16.0-70.0); Platelet Count 546 th/mm3 (150-450); Red Blood Count 3.22 mil/mm3 (4.50-5.90); Red Cell Distribution Width 15.7 % (11.6-17.2); White Blood Count 12.2 th/mm3 (4.0-11.0)
[2018-10-23] MEDS: Pantoprazole Inj 40 MG Vial IV.PUSH SCH (08:36)
[2018-10-23] MEDS: Sodium Chloride 0.9% 2 ML Flush BID IV.FLUSH SCH ×2 (08:37→20:18)
[2018-10-23] MEDS: Vancomycin Inj 1,250 MG in Sodium Chlor 0.9% Inj 250 ML IV.SIG SCH (08:37)
--- NOTE | 2018-10-23 10:24 | P.PNCC ---
Subjective Subjective Remarks/Hospital Course: 10/15: 53-year-old male with a medical history significant for hypertension, COPD who was found down at home, EMS was called and attempted intubation in the field for altered mental status after giving Versed and etomidate however patient had his teeth clenched and they could not intubated hence patient was bagged and brought to the ER. He was intubated in the ER and placed on mechanical ventilation. Head CT revealed left-sided small subdural hemorrhage and subarachnoid hemorrhage with skull base fracture with air around the sella. His hemoglobin came back 5.5. He was also noted to have coffee-ground material suctioned out of his NG tube. No melena or rectal bleeding noted. He was never hypotensive with systolic blood pressure in the 150s though he was tachycardic on arrival. He did spike a temperature in the ER of 101. Chest x- ray showed possible cavitary lesion in the left apex. Patient was accepted for admission by critical care medicine service after ER physician as discussed with trauma surgeon as well as Dr. Garcia from neurosurgery. When I evaluated the patient in the ER he was sedated with propofol, orally intubated on mechanical ventilation. History was obtained by reviewing records and discussion with ER physician. 10/16: Remains sedated, intubated on mechanical ventilation. Patient reportedly has significant alcohol abuse history. Currently has ICP monitor in place. ICPs not elevated overnight. Transfused 2 units PRBCs with hemoglobin increased to 9 g%. Awaiting EGD by GI today. 10/17: Remains sedated, orally intubated on mechanical ventilation. ICPs remained normal. Sputum positive for AFB sent on 10/15 on admission. MTB PCR pending. 10/18: Remains sedated, orally intubated on mechanical ventilation. ICPs remain normal. MTB PCR negative. Family deciding regarding bronchoscopy and other invasive procedures. 10/19: Remains sedated, orally intubated on mechanical ventilation. Phillips removed yesterday. Family still deciding about bronchoscopy. 10/20: Remains intubated lightly sedated with propofol. Moves lower extremities more than opposed. Do not follow commands. Family is agreeable for bronchoscopy tomorrow 10/21: Remains intubated sedated opens eyes. Did not follow commands but moves all 4 extremities. I will discontinue all current sedation and start on Precedex to facilitate vent weaning. Patient had bronchoscopy by Dr. Ngo today. No obvious mass. Right knee is warm and swollen. With low-grade fever worsening leukocytosis elevated ESR concerning for septic arthritis. Inflammatory arthritis cannot be ruled out at this time. His rheumatoid factor was also positive 10/22: Remains intubated lightly sedated with Precedex. Patient is more awake today able to follow commands. We will start CPAP trials with attempt to wean to extubate. The swelling of right knee has completely subsided now 10/23: Extubated, alert, protects airway. Comfortable respiratory pattern. Objective Vital Signs / I&O: Vital Signs 10/22/18 10:30 10/22/18 11:00 10/22/18 11:30 Temperature Pulse Rate 72 73 71 Respiratory Rate 22 26 H 17 Blood Pressure 145/87 H 142/85 H 128/78 Pulse Oximetry 100 100 100 10/22/18 12:00 10/22/18 12:30 10/22/18 13:00 Temperature 99.8 F H Pulse Rate 76 79 85 Respiratory Rate 17 17 24 Blood Pressure 126/78 132/79 144/82 H Pulse Oximetry 100 100 100 10/22/18 13:30 10/22/18 14:00 10/22/18 14:30 Temperature 99.4 F 99.4 F Pulse Rate 85 82 82 Respiratory Rate 23 23 24 Blood Pressure 127/77 133/79 128/74 Pulse Oximetry 100 100 100 10/22/18 15:00 10/22/18 15:30 10/22/18 16:00 Temperature 99.4 F Pulse Rate 80 76 84 Respiratory Rate 21 20 21 Blood Pressure 128/84 129/73 132/78 Pulse Oximetry 100 100 99 10/22/18 16:30 10/22/18 17:00 10/22/18 17:30 Temperature 99.1 F Pulse Rate 82 78 79 Respiratory Rate 24 22 22 Blood Pressure 122/78 123/75 123/73 Pulse Oximetry 100 98 100 10/22/18 18:00 10/22/18 18:30 10/22/18 19:00 Temperature 99.1 F Pulse Rate 68 82 65 Respiratory Rate 19 25 H 21 Blood Pressure 127/83 129/75 126/81 Pulse Oximetry 100 100 97 10/22/18 19:30 10/22/18 20:00 10/22/18 20:30 Temperature Pulse Rate 70 70 68 Respiratory Rate 22 21 21 Blood Pressure 141/89 H 133/82 133/82 Pulse Oximetry 95 10/22/18 21:00 10/22/18 21:40 10/22/18 22:00 Temperature 98.2 F Pulse Rate 65 68 70 Respiratory Rate 22 24 23 Blood Pressure 134/83 139/81 144/85 H Pulse Oximetry 100 10/22/18 22:30 10/22/18 23:00 10/22/18 23:30 Temperature Pulse Rate 59 L 57 L 54 L Respiratory Rate 18 23 23 Blood Pressure 135/82 139/85 145/85 H Pulse Oximetry 100 100 100 10/23/18 00:00 10/23/18 00:30 10/23/18 01:00 Temperature 97.7 F Pulse Rate 50 L 52 L 45 L Respiratory Rate 24 15 30 H Blood Pressure 140/85 143/87 H 131/77 Pulse Oximetry 100 100 99 10/23/18 01:30 10/23/18 02:00 10/23/18 02:30 Temperature Pulse Rate 46 L 54 L 50 L Respiratory Rate 16 19 18 Blood Pressure 139/76 129/78 116/73 Pulse Oximetry 100 100 100 10/23/18 03:00 10/23/18 03:57 10/23/18 04:00 Temperature 98.2 F Pulse Rate 70 55 L 69 Respiratory Rate 23 18 20 Blood Pressure 139/91 H 124/73 Pulse Oximetry 98 100 100 10/23/18 05:00 10/23/18 06:00 10/23/18 07:00 Temperature Pulse Rate 74 57 L 51 L Respiratory Rate 27 H 18 19 Blood Pressure Pulse Oximetry 100 100 100 10/23/18 07:38 10/23/18 08:00 10/23/18 09:00 Temperature 98.2 F Pulse Rate 80 65 73 Respiratory Rate 19 23 Blood Pressure 127/79 127/79 Pulse Oximetry 100 99 10/23/18 09:26 Temperature Pulse Rate Respiratory Rate Blood Pressure Pulse Oximetry 100 Intake & Output 10/22/18 10/23/18 10/23/18 18:59 06:59 18:59 Intake Total 2305 / 2305 517.5 / 517.5 Output Total 850 / 850 Balance 1455 / 1455 517.5 / 517.5 Weight 60.1 kg Intake: IV 2305 / 2305 517.5 / 517.5 Precedex Inj 200 MCG In NS Inj 100 / 100 50 / 50 48 ML @ 0.2 MCG/KG/HR 3.05 mls/ hr IV.CONT TITRATE PRN Rx#: [id number] NS Inj 1,000 ML @ 75 mls/hr IV. 1999 CONT .[id number] [facility] Rx#:[id number] Vancomycin Inj 1,250 MG In NS 262.5 / 262.5 Inj 250 ML @ 250 mls/hr IV.SIG Q12H [facility] Rx#:[id number] Rocephin Inj 2,000 MG In NS Inj 100 / 100 100 / 100 100 ML @ 200 mls/hr IV.SIG Q12H [facility] Rx#:[id number] Keppra Inj 500 MG In NS Inj 100 105 / 105 105 / 105 ML @ 400 mls/hr IV.SIG Q12H [facility] Rx#:[id number] Oral 0 / 0 Tube Feeding 0 / 0 Output: Urine Amount (Catheter) 850 / 850 Condom 850 / 850 Other: # Incontinent Voids 4 Date of Last Bowel Movement 10/22/18 10/23/18 10/23/18 # Bowel Movements 2 # Incontinent Bowel Movements 2 2 Result Diagrams: 10/23/18 03:45 10/22/18 03:03 Objective Remarks: GEN: Intubated sedated with Precedex HEENT: Orally intubated, no icterus Neck: No JVD, airway widely patent, no obstructive noises. Chest/Pulm: Comfortable respiratory pattern, normal excursions, no wheezing or crackles CVS: S1-S2 regular, no murmur, no JVD. GI/abdomen: soft, nontender, bowel sounds present, no guarding Extremities: warm bilaterally, no edema. Right knee swelling has subsided, well -perfused toes and fingers. Neuro: Pupils 2mm bilaterally, reactive to 1 mm. Following commands x4 today. No focal deficits Assessment and Plan - Assessment and Plan Plan: 53-year-old male with: ASSESSMENT Acute metabolic encephalopathy Traumatic subdural hemorrhage/subarachnoid hemorrhage with skull base fracture Upper GI bleed Anemia-most likely acute on chronic blood loss related Acute respiratory failure Sepsis Pneumonia Left upper lobe cavitary lesion-mass versus infectious versus other inflammatory process. Sputum AFB positive - MTB PCR negative Positive rheumatoid factor COPD Hypertension History of alcohol abuse Plan: Neuro: Discontinued all sedation and CIWA on 12/10. Precedex to facilitate ventilator weaning Neurosurgery Dr. Garcia performed burrhole with ICP monitor placement. Now ICP monitor removed Repeat head CT 10/17 noted. On IV thiamine/folic acid/MVI. Watch for alcohol withdrawal when extubated Previous EEG showed moderate encephalopathy Neuro exam remains much improved today. Patient able to follow commands Pulmonary: Continue mechanical ventilation, vent bundle, bronchodilators. Sputum AFB stain positive however MTB PCR negative. Consulted pulmonary/ID for further evaluation of left upper lobe cavitary lesion. Pulmonary Dr. Ngo following. Bronchoscopy 10/21/18 showed inflammation no obvious mass Extubated 10/22 GI/liver: GI Dr. Pretty. EGD done on 10/16 was negative for any active bleeding, blood clot in fundus probably from blood tracking down from pharynx, Grade A esophagitis noted. Protonix drip discontinued and placed on daily Protonix Defer to GI regarding colonoscopy as patient appears to have acute on chronic anemia as he came in with a hemoglobin of 5.5 and was hemodynamically stable. Heme: Follow CBC, Coags okay. Transfused 2 units PRBCs on 10/15. transfuse to keep hemoglobin above 7 g% provided patient maintains hemodynamic stability. ID/MSK: Started on Ceftriaxone IV q12hrs for Basilar skull fracture antibiotic prophylaxis by ID ID has discontinued Ceftazidime IV, Vanco IV and Flagyl on 10/21/2018 Rheumatoid factor positive, elevated sed rate but without further history hard to confirm rheumatoid arthritis Sputum positive for AFB. MTB PCR negative s/p Bronch 10/21 by pulmonary, follow-up on bronch cx Endocrine: Watch for hyperglycemia, SSI for glycemic control if needed. Prophylaxis: Protonix SCDs. No subcu heparin in view of GI bleed, subdural hemorrhage/ subarachnoid hemorrhage until cleared by neurosurgery and GI Overall impression: Patient tolerated extubation but remains plagued by multiple severe medical problems and is relatively unstable.
--- NOTE | 2018-10-23 10:56 | P.PNNS ---
Subjective Interval history: patient extubated, awake, alert, mildly restless attempting to get out of bed, restrained Physical Exam Vital signs: Vital Signs 10/22/18 10:30 10/22/18 11:00 10/22/18 11:30 Temperature Pulse Rate 72 73 71 Respiratory Rate 22 26 H 17 Blood Pressure 145/87 H 142/85 H 128/78 Pulse Oximetry 100 100 100 10/22/18 12:00 10/22/18 12:30 10/22/18 13:00 Temperature 99.8 F H Pulse Rate 76 79 85 Respiratory Rate 17 17 24 Blood Pressure 126/78 132/79 144/82 H Pulse Oximetry 100 100 100 10/22/18 13:30 10/22/18 14:00 10/22/18 14:30 Temperature 99.4 F 99.4 F Pulse Rate 85 82 82 Respiratory Rate 23 23 24 Blood Pressure 127/77 133/79 128/74 Pulse Oximetry 100 100 100 10/22/18 15:00 10/22/18 15:30 10/22/18 16:00 Temperature 99.4 F Pulse Rate 80 76 84 Respiratory Rate 21 20 21 Blood Pressure 128/84 129/73 132/78 Pulse Oximetry 100 100 99 10/22/18 16:30 10/22/18 17:00 10/22/18 17:30 Temperature 99.1 F Pulse Rate 82 78 79 Respiratory Rate 24 22 22 Blood Pressure 122/78 123/75 123/73 Pulse Oximetry 100 98 100 10/22/18 18:00 10/22/18 18:30 10/22/18 19:00 Temperature 99.1 F Pulse Rate 68 82 65 Respiratory Rate 19 25 H 21 Blood Pressure 127/83 129/75 126/81 Pulse Oximetry 100 100 97 10/22/18 19:30 10/22/18 20:00 10/22/18 20:30 Temperature Pulse Rate 70 70 68 Respiratory Rate 22 21 21 Blood Pressure 141/89 H 133/82 133/82 Pulse Oximetry 95 10/22/18 21:00 10/22/18 21:40 10/22/18 22:00 Temperature 98.2 F Pulse Rate 65 68 70 Respiratory Rate 22 24 23 Blood Pressure 134/83 139/81 144/85 H Pulse Oximetry 100 10/22/18 22:30 10/22/18 23:00 10/22/18 23:30 Temperature Pulse Rate 59 L 57 L 54 L Respiratory Rate 18 23 23 Blood Pressure 135/82 139/85 145/85 H Pulse Oximetry 100 100 100 10/23/18 00:00 10/23/18 00:30 10/23/18 01:00 Temperature 97.7 F Pulse Rate 50 L 52 L 45 L Respiratory Rate 24 15 30 H Blood Pressure 140/85 143/87 H 131/77 Pulse Oximetry 100 100 99 10/23/18 01:30 10/23/18 02:00 10/23/18 02:30 Temperature Pulse Rate 46 L 54 L 50 L Respiratory Rate 16 19 18 Blood Pressure 139/76 129/78 116/73 Pulse Oximetry 100 100 100 10/23/18 03:00 10/23/18 03:57 10/23/18 04:00 Temperature 98.2 F Pulse Rate 70 55 L 69 Respiratory Rate 23 18 20 Blood Pressure 139/91 H 124/73 Pulse Oximetry 98 100 100 10/23/18 05:00 10/23/18 06:00 10/23/18 07:00 Temperature Pulse Rate 74 57 L 51 L Respiratory Rate 27 H 18 19 Blood Pressure Pulse Oximetry 100 100 100 10/23/18 07:38 10/23/18 08:00 10/23/18 09:00 Temperature 98.2 F Pulse Rate 80 65 62 Respiratory Rate 19 23 22 Blood Pressure 127/79 127/79 Pulse Oximetry 100 99 100 10/23/18 09:26 10/23/18 09:51 10/23/18 10:00 Temperature Pulse Rate 78 72 Respiratory Rate 23 19 Blood Pressure 127/72 Pulse Oximetry 100 100 100 Intake & Output 10/22/18 10/23/18 10/23/18 18:59 06:59 18:59 Intake Total 2305 / 2305 517.5 / 517.5 Output Total 850 / 850 Balance 1455 / 1455 517.5 / 517.5 Weight 60.1 kg Intake: IV 2305 / 2305 517.5 / 517.5 Precedex Inj 200 MCG In NS Inj 100 / 100 50 / 50 48 ML @ 0.2 MCG/KG/HR 3.05 mls/ hr IV.CONT TITRATE PRN Rx#: [id number] NS Inj 1,000 ML @ 75 mls/hr IV. 1999 CONT .[id number] [facility] Rx#:[id number] Vancomycin Inj 1,250 MG In NS 262.5 / 262.5 Inj 250 ML @ 250 mls/hr IV.SIG Q12H [facility] Rx#:[id number] Rocephin Inj 2,000 MG In NS Inj 100 / 100 100 / 100 100 ML @ 200 mls/hr IV.SIG Q12H [facility] Rx#:[id number] Keppra Inj 500 MG In NS Inj 100 105 / 105 105 / 105 ML @ 400 mls/hr IV.SIG Q12H [facility] Rx#:[id number] Oral 0 / 0 Tube Feeding 0 / 0 Output: Urine Amount (Catheter) 850 / 850 Condom 850 / 850 Other: # Incontinent Voids 4 Date of Last Bowel Movement 10/22/18 10/23/18 10/23/18 # Bowel Movements 2 # Incontinent Bowel Movements 2 2 Narrative: awake, alert follows simple commands mildly restless, on soft restraints moves all four extremities - Urinary Catheter Management Indwelling Urethral Catheter Cath placed during this visit: yes, but has since been removed by the nurse Urethral indwelling: Yes Reason for continuing: Decision to DC catheter Insertion date: 10/15/18 Insertion time: 14:00 Removal date: 10/21/18 Removal time: 18:00 Condom Cath placed during this visit: yes Reason for continuing: Not indwelling catheter Insertion date: 10/21/18 Insertion time: 18:00 Assessment and Plan - Plan 53 year old male s/p mild subdural hemorrhage right frontal, left tentorium, left anterior falx, left temporal, stable f/u CT Brain 10/17/18 skull base fracture placement of ICP monitor 10/15/18, removed 10/18 due to absence of observed intracranial hypertension EEG 10/16/18 no evidence of seizures, moderate to severe encephalopathy cont neuro checks neuro exam improving cont therapy and rehab efforts
[2018-10-23] MEDS: Sod Chloride 0.9% Inj 1,000 ML IV.CONT SCH (11:30)
--- NOTE | 2018-10-23 16:23 | P.PNID ---
Subjective Remarks: Patient was extubated. Appears confused. Tells me that he has been treated for TB before. Also told RN that he has been treated for TB before. Beginning to open the right eye. Right eye is ecchymosis. Coughing. Afebrile. Sputum culture staph aureus. Bronch AFB smear positive. is a 53-year-old white male, who was brought to the emergency department in an unresponsive state. The patient was noted to have a skull fracture and a subdural hemorrhage at the right frontal region. He was intubated. He was taken to surgery, and underwent bur hole with evacuation of subarachnoid and subdural hemorrhage. The patient is unresponsive on the ventilator. Information is obtained from the medical record. No history is available at this time. The patient had elevated temperature of 102 on admission. Temperatures today have decreased, and are in normal range; however , it was elevated most of yesterday evening. White blood cell count is elevated at 20.3. Chest x-ray showed ill-defined parenchymal and pleural opacity in the left upper lobe. CT scan of the chest shows a prominent cavitary mass along the left anterolateral upper lung, and also patchy areas of consolidation at the posterior left lower lobe with some lesser degree of cavitary change. Small nodules measuring less than 5 mm were seen at the anterior left lower lobe, and at the right middle lobe. ID following for lung cavity concern for abscess vs TB or atypical mycobacteria. Past history of multiple incarcerations. ? Positive PPD. Antibiotics: Ceftriaxone IV. Lines: Lines ok Past Medical History: reviewed Allergies/Adverse Reactions: Allergies lisinopril Allergy (Intermediate, Verified 10/15/18 13:39) hallucinations amlodipine Allergy (Unknown, Verified 10/15/18 13:38) headaches Objective Vital Signs 10/22/18 16:30 10/22/18 17:00 10/22/18 17:30 Temperature 99.1 F Pulse Rate 82 78 79 Respiratory Rate 24 22 22 Blood Pressure 122/78 123/75 123/73 Pulse Oximetry 100 98 100 10/22/18 18:00 10/22/18 18:30 10/22/18 19:00 Temperature 99.1 F Pulse Rate 68 82 65 Respiratory Rate 19 25 H 21 Blood Pressure 127/83 129/75 126/81 Pulse Oximetry 100 100 97 10/22/18 19:30 10/22/18 20:00 10/22/18 20:30 Temperature Pulse Rate 70 70 68 Respiratory Rate 22 21 21 Blood Pressure 141/89 H 133/82 133/82 Pulse Oximetry 95 10/22/18 21:00 10/22/18 21:40 10/22/18 22:00 Temperature 98.2 F Pulse Rate 65 68 70 Respiratory Rate 22 24 23 Blood Pressure 134/83 139/81 144/85 H Pulse Oximetry 100 10/22/18 22:30 10/22/18 23:00 10/22/18 23:30 Temperature Pulse Rate 59 L 57 L 54 L Respiratory Rate 18 23 23 Blood Pressure 135/82 139/85 145/85 H Pulse Oximetry 100 100 100 10/23/18 00:00 10/23/18 00:30 10/23/18 01:00 Temperature 97.7 F Pulse Rate 50 L 52 L 45 L Respiratory Rate 24 15 30 H Blood Pressure 140/85 143/87 H 131/77 Pulse Oximetry 100 100 99 10/23/18 01:30 10/23/18 02:00 10/23/18 02:30 Temperature Pulse Rate 46 L 54 L 50 L Respiratory Rate 16 19 18 Blood Pressure 139/76 129/78 116/73 Pulse Oximetry 100 100 100 10/23/18 03:00 10/23/18 03:57 10/23/18 04:00 Temperature 98.2 F Pulse Rate 70 55 L 69 Respiratory Rate 23 18 20 Blood Pressure 139/91 H 124/73 Pulse Oximetry 98 100 100 10/23/18 05:00 10/23/18 06:00 10/23/18 07:00 Temperature Pulse Rate 74 57 L 51 L Respiratory Rate 27 H 18 19 Blood Pressure Pulse Oximetry 100 100 100 10/23/18 07:38 10/23/18 08:00 10/23/18 09:00 Temperature 98.2 F Pulse Rate 80 65 62 Respiratory Rate 19 23 22 Blood Pressure 127/79 127/79 Pulse Oximetry 100 99 100 10/23/18 09:26 10/23/18 09:51 10/23/18 10:00 Temperature Pulse Rate 78 72 Respiratory Rate 23 19 Blood Pressure 127/72 Pulse Oximetry 100 100 100 10/23/18 11:00 10/23/18 11:58 10/23/18 12:00 Temperature 98.3 F Pulse Rate 102 H 82 83 Respiratory Rate 42 H 22 23 Blood Pressure 121/79 131/81 Pulse Oximetry 100 100 100 10/23/18 13:00 10/23/18 14:00 10/23/18 15:00 Temperature Pulse Rate 68 75 81 Respiratory Rate 20 22 26 H Blood Pressure 122/73 122/80 135/79 Pulse Oximetry 100 100 100 Intake & Output 10/22/18 10/23/18 10/23/18 18:59 06:59 18:59 Intake Total 2305 / 2305 517.5 / 517.5 1367.5 / 1367.5 Output Total 850 / 850 Balance 1455 / 1455 517.5 / 517.5 1367.5 / 1367.5 Weight 60.1 kg Intake: IV 2305 / 2305 517.5 / 517.5 1367.5 / 1367.5 Precedex Inj 200 MCG In NS Inj 100 / 100 50 / 50 48 ML @ 0.2 MCG/KG/HR 3.05 mls/ hr IV.CONT TITRATE PRN Rx#: [id number] NS Inj 1,000 ML @ 75 mls/hr IV. 1999 / 1999 1000 / 1000 CONT .[id number] TOAN Rx#:[id number] Vancomycin Inj 1,250 MG In NS 262.5 / 262.5 262.5 / 262.5 Inj 250 ML @ 250 mls/hr IV.SIG Q12H TOAN Rx#:[id number] Rocephin Inj 2,000 MG In NS Inj 100 / 100 100 / 100 100 ML @ 200 mls/hr IV.SIG Q12H TOAN Rx#:[id number] Keppra Inj 500 MG In NS Inj 100 105 / 105 105 / 105 105 / 105 ML @ 400 mls/hr IV.SIG Q12H TOAN Rx#:[id number] Oral 0 / 0 Tube Feeding 0 / 0 Output: Urine Amount (Catheter) 850 / 850 Condom 850 / 850 Other: # Incontinent Voids 4 Date of Last Bowel Movement 10/22/18 10/23/18 10/23/18 # Bowel Movements 2 # Incontinent Bowel Movements 2 2 10/21/18 12:40 Bronchial Washings - Left Upper Lobe Acid Fast Bacilli Smear - Final Acid Fast Bacilli Seen 10/21/18 12:40 Bronchial Washings - Left Upper Lobe Mycobacterial Culture - Pending 10/21/18 12:40 Bronchial Brushings - Left Upper Lobe Acid Fast Bacilli Smear - Final No acid fast bacilli seen 10/21/18 12:40 Bronchial Brushings - Left Upper Lobe Mycobacterial Culture - Pending 10/21/18 12:40 Bronchial Brushings - Left Upper Lobe Fungal Smear - Final 10/21/18 12:40 Bronchial Brushings - Left Upper Lobe Fungal Culture - Pending 10/21/18 13:22 Blood - Peripheral Aerobic Blood Culture - Preliminary No growth in 2 days 10/21/18 13:22 Blood - Peripheral Anaerobic Blood Culture - Preliminary No growth in 2 days 10/21/18 13:14 Blood - Peripheral Aerobic Blood Culture - Preliminary No growth in 2 days 10/21/18 13:14 Blood - Peripheral Anaerobic Blood Culture - Preliminary No growth in 2 days 10/18/18 07:05 Blood - Peripheral Aerobic Blood Culture - Final No growth in 5 days 10/18/18 07:05 Blood - Peripheral Anaerobic Blood Culture - Final No growth in 5 days 10/18/18 07:55 Blood - Peripheral Aerobic Blood Culture - Final No growth in 5 days 10/18/18 07:55 Blood - Peripheral Anaerobic Blood Culture - Final No growth in 5 days 10/21/18 12:40 Bronchial - Left Upper Lobe Gram Stain - Final 10/21/18 12:40 Bronchial - Left Upper Lobe Bronchial Culture - Final Staphylococcus aureus 10/21/18 12:40 Bronchial Brushings - Left Upper Lobe Bronchial [place] Culture - Final No growth in 48 hours 10/21/18 12:40 Bronchial Washings - Left Upper Lobe Fungal Smear - Final No fungal elements seen 10/21/18 12:40 Bronchial Washings - Left Upper Lobe Fungal Culture - Pending 10/15/18 17:44 Sputum - Endotracheal Acid Fast Bacilli Smear - Final Acid Fast Bacilli Seen 10/15/18 17:44 Sputum - Endotracheal Mycobacterial Culture - Preliminary Lab - Hematology Results 10/22/18 10/23/18 03:03 03:45 WBC 13.1 H 12.2 H RBC 3.15 L 3.22 L Hgb 9.8 L 9.8 L Hct 28.8 L 29.3 L MCV 91.4 90.7 MCH 31.2 30.5 MCHC 34.1 33.6 RDW 15.8 15.7 Plt Count 476 H 546 H MPV 9.0 8.8 Neut % (Auto) 72.0 H 77.1 H Lymph % (Auto) 13.4 13.8 [place] % (Auto) 10.2 H 8.2 H Eos % (Auto) 3.2 0.1 Baso % (Auto) 1.2 0.8 Neut # (Auto) 9.4 H 9.4 H Lymph # (Auto) 1.8 1.7 [place] # (Auto) 1.3 H 1.0 H Eos # (Auto) 0.4 0.0 Baso # (Auto) 0.2 0.1 WBC Differential . . Differential Comment Auto diff final Auto diff final Lab - Chemistry Results 10/21/18 10/22/18 13:14 03:03 Potassium 3.6 D Creatinine 0.52 L Estimated GFR Greater than 89 Procalcitonin 0.15 H Imaging: ITS Impressions Cervical Spine CT 10/15/18 13:26 CONCLUSION: 1. No acute fracture or subluxation. 2. Partially imaged large cavitary lesion in the left lung apex. Chest CT to follow. 3. Multilevel degenerative spondylosis of the cervical spine. Abdomen/Pelvis CT 10/15/18 15:27 CONCLUSION: 1. Extensive wall thickening urinary bladder, neoplastic process should be excluded. 2. Diverticulosis without diverticulitis. 3. Bilateral nonobstructing renal calculi. 4. Left basilar infiltrate. Chest CT 10/15/18 15:27 CONCLUSION: 1. Prominent cavitary mass along the anterior lateral left upper lung. This could be inflammatory/infectious versus neoplastic. It is nonspecific. 2. Patchy areas of consolidation seen at the posterior left lower lung with some lesser degree of cavitary change. This most closely resembles postinflammatory change although is nonspecific. 3. Small nodules measuring less than 5 mm at the anterior left lower lung and at the right middle lobe. These are nonspecific. They can be followed. 4. Significant adenopathy is not seen. Carotid Doppler Study 10/16/18 10:06 CONCLUSION: Negative examination for a hemodynamically significant carotid stenosis. Gianni Raymundo MD FACR Head CT 10/17/18 00:00 CONCLUSION: 1. Stable exam as detailed above. . Knee X-Ray 10/21/18 00:00 CONCLUSION: 1. Chronic irregularity of the superior pole along the patella with apparent ossification. There is adjacent mild soft tissue prominence. 2. Remote postsurgical changes in the proximal tibia. Chest X-Ray 10/21/18 06:00 CONCLUSION: No significant interval change in left lung opacity. Physical Exam: GENERAL: No acute distress. HEENT: Pupils reactive to light. Extraocular movements intact. No icterus. NECK: Supple without adenopathy. No swelling. LUNGS: Coarse bibasilar rhonchi. HEART: Regular S1-S2 without murmurs rubs or gallops. ABDOMEN: Bowel sounds present, soft, no tenderness appreciated. EXTREMITIES: No clubbing cyanosis or edema. SKIN: No diffuse rash. NEUROLOGIC: Unable to assess. PSYCH: Unable to assess. Assessment and Plan - Plan Positive AFB in sputum with lung cavity: DDx: Pulm TB vs Atypical mycobacteria with secondary bacterial infection of cavity. PCR and DNA testing on AFB and sputum reveals that it is not tuberculosis. Spoke with microbiology. Specimen sent to [facility]. Awaiting identification. New bronchoscopy sputum smear is positive for AFB. Encephalopathy Traumatic subdural hemorrhage/subarachnoid hemorrhage with skull base fracture Anemia-most likely acute on chronic blood loss related Sepsis Pneumonia Left upper lobe cavitary lesion-mass versus infectious versus other inflammatory process Recommend: Continue ceftriaxone IV q12hrs for Basilar skull fracture antibiotic prophylaxis. Above regimen covers Skull base fracture prophylaxis and also secondary bacterial infection of lung cavity. Follow sputum AFB identity. AFB isolation while awaiting results of the AFB test. Follow clinical course. Discussed with YRIS.
--- NOTE | 2018-10-23 18:21 | P.PN ---
Subjective Interval history: Extubated and now on O2 N/C 3 L. answers questions. No resp distress. Physical Exam Vital signs: Vital Signs 10/22/18 18:30 10/22/18 19:00 10/22/18 19:30 Temperature Pulse Rate 82 65 70 Respiratory Rate 25 H 21 22 Blood Pressure 129/75 126/81 141/89 H Pulse Oximetry 100 97 10/22/18 20:00 10/22/18 20:30 10/22/18 21:00 Temperature 98.2 F Pulse Rate 70 68 65 Respiratory Rate 21 21 22 Blood Pressure 133/82 133/82 134/83 Pulse Oximetry 95 10/22/18 21:40 10/22/18 22:00 10/22/18 22:30 Temperature Pulse Rate 68 70 59 L Respiratory Rate 24 23 18 Blood Pressure 139/81 144/85 H 135/82 Pulse Oximetry 100 100 10/22/18 23:00 10/22/18 23:30 10/23/18 00:00 Temperature 97.7 F Pulse Rate 57 L 54 L 50 L Respiratory Rate 23 23 24 Blood Pressure 139/85 145/85 H 140/85 Pulse Oximetry 100 100 100 10/23/18 00:30 10/23/18 01:00 10/23/18 01:30 Temperature Pulse Rate 52 L 45 L 46 L Respiratory Rate 15 30 H 16 Blood Pressure 143/87 H 131/77 139/76 Pulse Oximetry 100 99 100 10/23/18 02:00 10/23/18 02:30 10/23/18 03:00 Temperature Pulse Rate 54 L 50 L 70 Respiratory Rate 19 18 23 Blood Pressure 129/78 116/73 139/91 H Pulse Oximetry 100 100 98 10/23/18 03:57 10/23/18 04:00 10/23/18 05:00 Temperature 98.2 F Pulse Rate 55 L 69 74 Respiratory Rate 18 20 27 H Blood Pressure 124/73 Pulse Oximetry 100 100 100 10/23/18 06:00 10/23/18 07:00 10/23/18 07:38 Temperature Pulse Rate 57 L 51 L 80 Respiratory Rate 18 19 19 Blood Pressure 127/79 Pulse Oximetry 100 100 100 10/23/18 08:00 10/23/18 09:00 10/23/18 09:26 Temperature 98.2 F Pulse Rate 65 62 Respiratory Rate 23 22 Blood Pressure 127/79 Pulse Oximetry 99 100 100 10/23/18 09:51 10/23/18 10:00 10/23/18 11:00 Temperature Pulse Rate 78 72 102 H Respiratory Rate 23 19 42 H Blood Pressure 127/72 Pulse Oximetry 100 100 100 10/23/18 11:58 10/23/18 12:00 10/23/18 13:00 Temperature 98.3 F Pulse Rate 82 83 68 Respiratory Rate 22 23 20 Blood Pressure 121/79 131/81 122/73 Pulse Oximetry 100 100 100 10/23/18 14:00 10/23/18 15:00 10/23/18 16:00 Temperature Pulse Rate 75 81 71 Respiratory Rate 22 26 H 21 Blood Pressure 122/80 135/79 135/85 Pulse Oximetry 100 100 100 10/23/18 17:00 10/23/18 18:00 Temperature Pulse Rate 81 90 Respiratory Rate 25 H 34 H Blood Pressure 144/83 H 139/84 Pulse Oximetry 100 90 L Intake & Output 10/22/18 10/23/18 10/23/18 18:59 06:59 18:59 Intake Total 2305 / 2305 517.5 / 517.5 1947.5 / 1947.5 Output Total 850 / 850 600 / 600 Balance 1455 / 1455 517.5 / 517.5 1347.5 / 1347.5 Weight 60.1 kg Intake: IV 2305 / 2305 517.5 / 517.5 1467.5 / 1467.5 Precedex Inj 200 MCG In NS Inj 100 / 100 50 / 50 48 ML @ 0.2 MCG/KG/HR 3.05 mls/ hr IV.CONT TITRATE PRN Rx#: [id number] NS Inj 1,000 ML @ 75 mls/hr IV. 1999 / 1999 1000 / 1000 CONT .[id number] TOAN Rx#:[id number] Vancomycin Inj 1,250 MG In NS 262.5 / 262.5 262.5 / 262.5 Inj 250 ML @ 250 mls/hr IV.SIG Q12H TOAN Rx#:[id number] Rocephin Inj 2,000 MG In NS Inj 100 / 100 100 / 100 100 / 100 100 ML @ 200 mls/hr IV.SIG Q12H TOAN Rx#:[id number] Keppra Inj 500 MG In NS Inj 100 105 / 105 105 / 105 105 / 105 ML @ 400 mls/hr IV.SIG Q12H TOAN Rx#:[id number] Oral 0 / 0 480 / 480 Tube Feeding 0 / 0 Output: Urine Amount (Catheter) 850 / 850 600 / 600 Condom 850 / 850 600 / 600 Other: # Voids 1 # Incontinent Voids 4 Date of Last Bowel Movement 10/22/18 10/23/18 10/23/18 # Bowel Movements 2 # Incontinent Bowel Movements 2 2 Narrative: intubated GENERAL: Awake and in no distress SKIN: Warm and dry. HEAD: Atraumatic. Normocephalic. EYES: . No scleral icterus. Mild erythema Right eye ENT: No nasal bleeding or discharge. Mucous membranes pink and moist. NECK: Trachea midline. No JVD. CARDIOVASCULAR: Regular rate and rhythm. RESPIRATORY: No accessory muscle use. Breath sounds equal bilaterally. GASTROINTESTINAL: Abdomen soft, non-tender, nondistended. Hepatic and splenic margins not palpable. MUSCULOSKELETAL: Extremities without clubbing, cyanosis, or edema. No obvious deformities. NEUROLOGICAL: Awake and responds to commands. moves arms PSYCHIATRIC: cannot assess. - Urinary Catheter Management Indwelling Urethral Catheter Cath placed during this visit: yes, but has since been removed by the nurse Urethral indwelling: Yes Reason for continuing: Decision to DC catheter Insertion date: 10/15/18 Insertion time: 14:00 Removal date: 10/21/18 Removal time: 18:00 Condom Cath placed during this visit: yes Reason for continuing: Not indwelling catheter Insertion date: 10/21/18 Insertion time: 18:00 Results - Labs CBC & Chem 7: 10/23/18 03:45 10/22/18 03:03 Laboratory Results - last 24 hr 10/23/18 03:45 WBC 12.2 H RBC 3.22 L Hgb 9.8 L Hct 29.3 L MCV 90.7 MCH 30.5 MCHC 33.6 RDW 15.7 Plt Count 546 H MPV 8.8 Neut % (Auto) 77.1 H Lymph % (Auto) 13.8 [place] % (Auto) 8.2 H Eos % (Auto) 0.1 Baso % (Auto) 0.8 Neut # (Auto) 9.4 H Lymph # (Auto) 1.7 [place] # (Auto) 1.0 H Eos # (Auto) 0.0 Baso # (Auto) 0.1 WBC Differential . Differential Comment Auto diff final Microbiology 10/21/18 12:40 Bronchial Washings - Left Upper Lobe Acid Fast Bacilli Smear - Final Acid Fast Bacilli Seen 10/21/18 12:40 Bronchial Brushings - Left Upper Lobe Acid Fast Bacilli Smear - Final No acid fast bacilli seen 10/21/18 12:40 Bronchial Brushings - Left Upper Lobe Fungal Smear - Final 10/21/18 13:22 Blood - Peripheral Aerobic Blood Culture - Preliminary No growth in 2 days 10/21/18 13:22 Blood - Peripheral Anaerobic Blood Culture - Preliminary No growth in 2 days 10/21/18 13:14 Blood - Peripheral Aerobic Blood Culture - Preliminary No growth in 2 days 10/21/18 13:14 Blood - Peripheral Anaerobic Blood Culture - Preliminary No growth in 2 days 10/18/18 07:05 Blood - Peripheral Aerobic Blood Culture - Final No growth in 5 days 10/18/18 07:05 Blood - Peripheral Anaerobic Blood Culture - Final No growth in 5 days 10/18/18 07:55 Blood - Peripheral Aerobic Blood Culture - Final No growth in 5 days 10/18/18 07:55 Blood - Peripheral Anaerobic Blood Culture - Final No growth in 5 days 10/21/18 12:40 Bronchial - Left Upper Lobe Gram Stain - Final 10/21/18 12:40 Bronchial - Left Upper Lobe Bronchial Culture - Final Staphylococcus aureus 10/21/18 12:40 Bronchial Brushings - Left Upper Lobe Bronchial [place] Culture - Final No growth in 48 hours 10/21/18 12:40 Bronchial Washings - Left Upper Lobe Fungal Smear - Final No fungal elements seen Assessment and Plan - Assessment (1) Subdural hematoma, post-traumatic Code(s): S06.5X9A - Traumatic subdural hemorrhage with loss of consciousness of unspecified duration, initial encounter Status: Acute (2) Intracerebral hemorrhage Code(s): I61.9 - Nontraumatic intracerebral hemorrhage, unspecified Status: Acute (3) COPD (chronic obstructive pulmonary disease) Code(s): J44.9 - Chronic obstructive pulmonary disease, unspecified Status: Acute (4) Cavitating mass of lung Code(s): J98.4 - Other disorders of lung Status: Acute (5) Pneumonia Code(s): J18.9 - Pneumonia, unspecified organism Status: Acute (6) GI bleed Code(s): K92.2 - Gastrointestinal hemorrhage, unspecified Status: Acute (7) Anemia Code(s): D64.9 - Anemia, unspecified Status: Acute - Plan 1. O2 2 L N/C 2. CXR in am. 3. Duoneb nebs qid. 4. Continue antibiotics as ordered. D/C vanco 5. Swallow evaluation if stable in am 6. IS at bedside q2h. 7. Continue levetiracetam.
[2018-10-24] MEDS: Sod Chloride 0.9% Inj 1,000 ML IV.CONT SCH ×2 (02:11→14:30)
[2018-10-24 07:34] LABS: Glomerular Filtration Rate Greater Than 89 mL/min (>89)
[2018-10-24] MEDS: Pantoprazole Inj 40 MG Vial IV.PUSH SCH (09:16)
[2018-10-24] MEDS: Sodium Chloride 0.9% 2 ML Flush BID IV.FLUSH SCH ×2 (10:26→23:33)
--- NOTE | 2018-10-24 14:16 | P.PNCC ---
Subjective Subjective Remarks/Hospital Course: 10/15: 53-year-old male with a medical history significant for hypertension, COPD who was found down at home, EMS was called and attempted intubation in the field for altered mental status after giving Versed and etomidate however patient had his teeth clenched and they could not intubated hence patient was bagged and brought to the ER. He was intubated in the ER and placed on mechanical ventilation. Head CT revealed left-sided small subdural hemorrhage and subarachnoid hemorrhage with skull base fracture with air around the sella. His hemoglobin came back 5.5. He was also noted to have coffee-ground material suctioned out of his NG tube. No melena or rectal bleeding noted. He was never hypotensive with systolic blood pressure in the 150s though he was tachycardic on arrival. He did spike a temperature in the ER of 101. Chest x- ray showed possible cavitary lesion in the left apex. Patient was accepted for admission by critical care medicine service after ER physician as discussed with trauma surgeon as well as Dr. Garcia from neurosurgery. When I evaluated the patient in the ER he was sedated with propofol, orally intubated on mechanical ventilation. History was obtained by reviewing records and discussion with ER physician. 10/16: Remains sedated, intubated on mechanical ventilation. Patient reportedly has significant alcohol abuse history. Currently has ICP monitor in place. ICPs not elevated overnight. Transfused 2 units PRBCs with hemoglobin increased to 9 g%. Awaiting EGD by GI today. 10/17: Remains sedated, orally intubated on mechanical ventilation. ICPs remained normal. Sputum positive for AFB sent on 10/15 on admission. MTB PCR pending. 10/18: Remains sedated, orally intubated on mechanical ventilation. ICPs remain normal. MTB PCR negative. Family deciding regarding bronchoscopy and other invasive procedures. 10/19: Remains sedated, orally intubated on mechanical ventilation. [place] removed yesterday. Family still deciding about bronchoscopy. 10/20: Remains intubated lightly sedated with propofol. Moves lower extremities more than opposed. Do not follow commands. Family is agreeable for bronchoscopy tomorrow 10/21: Remains intubated sedated opens eyes. Did not follow commands but moves all 4 extremities. I will discontinue all current sedation and start on Precedex to facilitate vent weaning. Patient had bronchoscopy by Dr. Ngo today. No obvious mass. Right knee is warm and swollen. With low-grade fever worsening leukocytosis elevated ESR concerning for septic arthritis. Inflammatory arthritis cannot be ruled out at this time. His rheumatoid factor was also positive 10/22: Remains intubated lightly sedated with Precedex. Patient is more awake today able to follow commands. We will start CPAP trials with attempt to wean to extubate. The swelling of right knee has completely subsided now 10/23: Extubated, alert, protects airway. Comfortable respiratory pattern. 10/24: Extubated 40 hours ago and continues to breathe comfortably. Initial sputum culture for TB negative on final report, repeat culture pending. Objective Vital Signs / I&O: Vital Signs 10/23/18 15:00 10/23/18 16:00 10/23/18 17:00 Temperature Pulse Rate 81 71 81 Respiratory Rate 26 H 21 25 H Blood Pressure 135/79 135/85 144/83 H Pulse Oximetry 100 100 100 10/23/18 18:00 10/23/18 19:00 10/23/18 19:14 Temperature Pulse Rate 90 77 Respiratory Rate 34 H 23 Blood Pressure 139/84 126/77 Pulse Oximetry 90 L 100 100 10/23/18 20:00 10/23/18 21:00 10/23/18 22:00 Temperature 98.5 F Pulse Rate 87 65 84 Respiratory Rate 25 H 25 H 24 Blood Pressure 135/84 147/81 H 180/97 H Pulse Oximetry 100 100 100 10/23/18 22:02 10/23/18 22:07 10/23/18 23:00 Temperature Pulse Rate 66 76 57 L Respiratory Rate 23 31 H 20 Blood Pressure 180/97 H 204/96 H 155/84 H Pulse Oximetry 100 96 100 10/24/18 00:00 10/24/18 01:00 10/24/18 02:00 Temperature 100.8 F H Pulse Rate 65 67 59 L Respiratory Rate 19 25 H 19 Blood Pressure 160/87 H 151/78 H 156/81 H Pulse Oximetry 100 100 100 10/24/18 03:00 10/24/18 04:00 10/24/18 05:00 Temperature 99.8 F H Pulse Rate 58 L 78 88 Respiratory Rate 18 18 20 Blood Pressure 165/79 H 155/90 H 147/88 H Pulse Oximetry 100 99 100 10/24/18 06:00 10/24/18 07:00 10/24/18 08:00 Temperature 98.6 F Pulse Rate 72 56 L 62 Respiratory Rate 18 20 18 Blood Pressure 139/86 142/84 H 138/84 Pulse Oximetry 100 100 100 10/24/18 09:00 10/24/18 10:00 10/24/18 11:00 Temperature Pulse Rate 66 58 L 70 Respiratory Rate 18 18 20 Blood Pressure 140/81 145/81 H 135/82 Pulse Oximetry 99 97 98 10/24/18 12:00 10/24/18 13:00 Temperature 98.7 F 99.0 F Pulse Rate 57 L 66 Respiratory Rate 18 18 Blood Pressure 132/73 133/67 Pulse Oximetry 100 100 Intake & Output 10/23/18 10/24/18 10/24/18 18:59 06:59 18:59 Intake Total 1947.5 / 1947.5 1105 / 1105 105 / 105 Output Total 600 / 600 250 / 250 Balance 1347.5 / 1347.5 855 / 855 105 / 105 Weight 58.8 kg Intake: IV 1467.5 / 1467.5 1105 / 1105 105 / 105 NS Inj 1,000 ML @ 75 mls/hr IV. 1000 / 1000 900 / 900 CONT .[id number] TOAN Rx#:[id number] Vancomycin Inj 1,250 MG In NS 262.5 / 262.5 Inj 250 ML @ 250 mls/hr IV.SIG Q12H TOAN Rx#:[id number] Rocephin Inj 2,000 MG In NS Inj 100 / 100 100 / 100 100 ML @ 200 mls/hr IV.SIG Q12H TOAN Rx#:[id number] Keppra Inj 500 MG In NS Inj 100 105 / 105 105 / 105 105 / 105 ML @ 400 mls/hr IV.SIG Q12H TOAN Rx#:[id number] Oral 480 / 480 Output: Urine Amount (Catheter) 600 / 600 250 / 250 Condom 600 / 600 250 / 250 Other: # Voids 1 # Incontinent Voids 8 Date of Last Bowel Movement 10/23/18 10/23/18 10/23/18 Result Diagrams: 10/24/18 06:02 10/24/18 06:02 Objective Remarks: GEN: Disoriented, confused HEENT: Orally intubated, no icterus Neck: No JVD, airway widely patent, no obstructive noises. Chest/Pulm: Scattered rhonchi, normal excursions, no wheezing or crackles, comfortable respiratory pattern. CVS: S1-S2 regular, no murmur, no JVD. GI/abdomen: soft, nontender, bowel sounds present, no guarding Extremities: Warm and well perfused bilaterally, no edema. Right knee swelling has subsided. Neuro: Pupils 2mm bilaterally, reactive to 1 mm. Following commands four limbs. No focal deficits Assessment and Plan - Assessment and Plan Plan: 53-year-old male with: ASSESSMENT Acute metabolic encephalopathy Traumatic subdural hemorrhage/subarachnoid hemorrhage with skull base fracture Upper GI bleed Anemia-most likely acute on chronic blood loss related Acute respiratory failure Sepsis Pneumonia Left upper lobe cavitary lesion-mass versus infectious versus other inflammatory process. Sputum AFB positive - MTB PCR negative Positive rheumatoid factor COPD Hypertension History of alcohol abuse Plan: Neuro: Discontinued all sedation and CIWA on 10/21. Precedex to facilitate ventilator weaning Neurosurgery Dr. Garcia performed burrhole with ICP monitor placement. Now ICP monitor removed Repeat head CT 10/17 noted. On IV thiamine/folic acid/MVI. Watch for alcohol withdrawal when extubated Previous EEG showed moderate encephalopathy Neuro exam remains much improved today. Patient able to follow commands Pulmonary: Continue mechanical ventilation, vent bundle, bronchodilators. Sputum AFB stain positive however MTB PCR negative. Consulted pulmonary/ID for further evaluation of left upper lobe cavitary lesion. Pulmonary Dr. Ngo following. Bronchoscopy 10/21/18 showed inflammation no obvious mass Extubated 10/22 GI/liver: GI Dr. Pretty. EGD done on 10/16 was negative for any active bleeding, blood clot in fundus probably from blood tracking down from pharynx, Grade A esophagitis noted. Protonix drip discontinued and placed on daily Protonix Defer to GI regarding colonoscopy as patient appears to have acute on chronic anemia as he came in with a hemoglobin of 5.5 and was hemodynamically stable. Heme: Follow CBC, Transfused 2 units PRBCs on 10/15. transfuse to keep hemoglobin above 7 g% provided patient maintains hemodynamic stability. ID/MSK: Started on Ceftriaxone IV q12hrs for Basilar skull fracture antibiotic prophylaxis by ID ID has discontinued Ceftazidime IV, Vanco IV and Flagyl on 10/21/2018 Rheumatoid factor positive, elevated sed rate but without further history hard to confirm rheumatoid arthritis Sputum positive for AFB. MTB PCR negative s/p Bronch 10/21 by pulmonary, follow-up on bronch cx, still pending Endocrine: Watch for hyperglycemia, SSI for glycemic control if needed. Prophylaxis: Protonix SCDs. No subcu heparin in view of GI bleed, subdural hemorrhage/ subarachnoid hemorrhage until cleared by neurosurgery and GI Overall impression: Patient tolerated extubation and is stable from a respiratory standpoint now. Multiple medical problems presently being addressed. Transfer out of unit soon.
--- NOTE | 2018-10-24 18:19 | P.PN ---
Subjective Interval history: Awake and seems calm and answers questions. On O2 2 L. AFB Positive from Bronchial wash . ID pending. Physical Exam Vital signs: Vital Signs 10/23/18 19:00 10/23/18 19:14 10/23/18 20:00 Temperature Pulse Rate 77 87 Respiratory Rate 23 25 H Blood Pressure 126/77 135/84 Pulse Oximetry 100 100 100 10/23/18 21:00 10/23/18 22:00 10/23/18 22:02 Temperature 98.5 F Pulse Rate 65 84 66 Respiratory Rate 25 H 24 23 Blood Pressure 147/81 H 180/97 H 180/97 H Pulse Oximetry 100 100 100 10/23/18 22:07 10/23/18 23:00 10/24/18 00:00 Temperature Pulse Rate 76 57 L 65 Respiratory Rate 31 H 20 19 Blood Pressure 204/96 H 155/84 H 160/87 H Pulse Oximetry 96 100 100 10/24/18 01:00 10/24/18 02:00 10/24/18 03:00 Temperature 100.8 F H Pulse Rate 67 59 L 58 L Respiratory Rate 25 H 19 18 Blood Pressure 151/78 H 156/81 H 165/79 H Pulse Oximetry 100 100 100 10/24/18 04:00 10/24/18 05:00 10/24/18 06:00 Temperature 99.8 F H Pulse Rate 78 88 72 Respiratory Rate 18 20 18 Blood Pressure 155/90 H 147/88 H 139/86 Pulse Oximetry 99 100 100 10/24/18 07:00 10/24/18 08:00 10/24/18 09:00 Temperature 98.6 F Pulse Rate 56 L 62 66 Respiratory Rate 20 18 18 Blood Pressure 142/84 H 138/84 140/81 Pulse Oximetry 100 100 99 10/24/18 10:00 10/24/18 11:00 10/24/18 12:00 Temperature 98.7 F Pulse Rate 58 L 70 57 L Respiratory Rate 18 20 18 Blood Pressure 145/81 H 135/82 132/73 Pulse Oximetry 97 98 100 10/24/18 13:00 10/24/18 14:00 10/24/18 15:00 Temperature 99.0 F Pulse Rate 66 72 60 Respiratory Rate 18 20 16 Blood Pressure 133/67 128/78 169/86 H Pulse Oximetry 100 100 100 10/24/18 16:00 10/24/18 17:00 Temperature 98.9 F Pulse Rate 70 63 Respiratory Rate 20 16 Blood Pressure 137/77 145/79 H Pulse Oximetry 100 100 Intake & Output 10/23/18 10/24/18 10/24/18 18:59 06:59 18:59 Intake Total 1947.5 / 1947.5 1105 / 1105 1105 / 1105 Output Total 600 / 600 250 / 250 Balance 1347.5 / 1347.5 855 / 855 1105 / 1105 Weight 58.8 kg Intake: IV 1467.5 / 1467.5 1105 / 1105 1105 / 1105 NS Inj 1,000 ML @ 75 mls/hr IV. 1000 / 1000 900 / 900 1000 / 1000 CONT .[id number] TOAN Rx#:[id number] Vancomycin Inj 1,250 MG In NS 262.5 / 262.5 Inj 250 ML @ 250 mls/hr IV.SIG Q12H TOAN Rx#:[id number] Rocephin Inj 2,000 MG In NS Inj 100 / 100 100 / 100 100 ML @ 200 mls/hr IV.SIG Q12H TOAN Rx#:[id number] Keppra Inj 500 MG In NS Inj 100 105 / 105 105 / 105 105 / 105 ML @ 400 mls/hr IV.SIG Q12H TOAN Rx#:[id number] Oral 480 / 480 Output: Urine Amount (Catheter) 600 / 600 250 / 250 Condom 600 / 600 250 / 250 Other: # Voids 1 # Incontinent Voids 8 Date of Last Bowel Movement 10/23/18 10/23/18 10/23/18 Narrative: awake, alert GENERAL: Thin mid aged W/M SKIN: Warm and dry. HEAD: Atraumatic. Normocephalic. EYES: Pupils equal and round. No scleral icterus. No injection or drainage. ENT: No nasal bleeding or discharge. Mucous membranes pink and moist. NECK: Trachea midline. No JVD. CARDIOVASCULAR: Regular rate and rhythm. RESPIRATORY: No accessory muscle use. Clear to auscultation. Breath sounds equal bilaterally. GASTROINTESTINAL: Abdomen soft, non-tender, nondistended. Hepatic and splenic margins not palpable. MUSCULOSKELETAL: Extremities without clubbing, cyanosis, or edema. No obvious deformities. NEUROLOGICAL: Awake and alert. weak in legs and moves arms. PSYCHIATRIC: Appropriate mood and affect; insight and judgment normal.cannot assess - Urinary Catheter Management Indwelling Urethral Catheter Cath placed during this visit: yes, but has since been removed by the nurse Urethral indwelling: Yes Reason for continuing: Decision to DC catheter Insertion date: 10/15/18 Insertion time: 14:00 Removal date: 10/21/18 Removal time: 18:00 Condom Cath placed during this visit: yes Reason for continuing: Not indwelling catheter Insertion date: 10/21/18 Insertion time: 18:00 Results - Labs CBC & Chem 7: 10/24/18 06:02 10/24/18 06:02 Laboratory Results - last 24 hr 10/24/18 10/24/18 06:02 06:02 Hgb 10.6 L Creatinine 0.50 L Estimated GFR Greater than 89 Microbiology 10/21/18 13:22 Blood - Peripheral Aerobic Blood Culture - Preliminary No growth in 3 days 10/21/18 13:22 Blood - Peripheral Anaerobic Blood Culture - Preliminary No growth in 3 days 10/21/18 13:14 Blood - Peripheral Aerobic Blood Culture - Preliminary No growth in 3 days 10/21/18 13:14 Blood - Peripheral Anaerobic Blood Culture - Preliminary No growth in 3 days 10/21/18 12:40 Bronchial Washings - Left Upper Lobe Acid Fast Bacilli Smear - Final Acid Fast Bacilli Seen 10/21/18 12:40 Bronchial Brushings - Left Upper Lobe Acid Fast Bacilli Smear - Final No acid fast bacilli seen Assessment and Plan - Assessment (1) Subdural hematoma, post-traumatic Code(s): S06.5X9A - Traumatic subdural hemorrhage with loss of consciousness of unspecified duration, initial encounter Status: Acute (2) Intracerebral hemorrhage Code(s): I61.9 - Nontraumatic intracerebral hemorrhage, unspecified Status: Acute (3) COPD (chronic obstructive pulmonary disease) Code(s): J44.9 - Chronic obstructive pulmonary disease, unspecified Status: Acute (4) Cavitating mass of lung Code(s): J98.4 - Other disorders of lung Status: Acute (5) Pneumonia Code(s): J18.9 - Pneumonia, unspecified organism Status: Acute (6) GI bleed Code(s): K92.2 - Gastrointestinal hemorrhage, unspecified Status: Acute (7) Anemia Code(s): D64.9 - Anemia, unspecified Status: Acute - Plan 1. O2 2 L N/C PRN 2. CBC,BMP 3. Duoneb nebs qid. 4. Continue antibiotics as ordered. 5. Soft diet as tolerated 6. IS at bedside q2h. 7. Await ID on AFB culture 8. Transfer to tele
--- NOTE | 2018-10-24 22:21 | P.PNNS ---
Subjective Interval history: 53-year-old male with a medical history significant for hypertension, COPD who was found down at home, EMS was called and attempted intubation in the field for altered mental status after giving Versed and etomidate however patient had his teeth clenched and they could not intubated hence patient was bagged and brought to the ER. He was intubated in the ER and placed on mechanical ventilation. Head CT revealed left-sided small subdural hemorrhage and subarachnoid hemorrhage with skull base fracture with air around the sella. His hemoglobin came back 5.5. He was also noted to have coffee-ground material suctioned out of his NG tube. No melena or rectal bleeding noted. He was never hypotensive with systolic blood pressure in the 150s though he was tachycardic on arrival. He did spike a temperature in the ER of 101. Chest x- ray showed possible cavitary lesion in the left apex. Patient was accepted for admission by critical care medicine service after ER physician as discussed with trauma surgeon as well as Dr. Garcia from neurosurgery. When I evaluated the patient in the ER he was sedated with propofol, orally intubated on mechanical ventilation. 10/24: Extubated 2 days ago, continues to breathe comfortably. Initial sputum culture for TB negative on final report. Physical Exam Vital signs: Vital Signs 10/23/18 23:00 10/24/18 00:00 10/24/18 01:00 Temperature Pulse Rate 57 L 65 67 Respiratory Rate 20 19 25 H Blood Pressure 155/84 H 160/87 H 151/78 H Pulse Oximetry 100 100 100 10/24/18 02:00 10/24/18 03:00 10/24/18 04:00 Temperature 100.8 F H 99.8 F H Pulse Rate 59 L 58 L 78 Respiratory Rate 19 18 18 Blood Pressure 156/81 H 165/79 H 155/90 H Pulse Oximetry 100 100 99 10/24/18 05:00 10/24/18 06:00 10/24/18 07:00 Temperature 98.6 F Pulse Rate 88 72 56 L Respiratory Rate 20 18 20 Blood Pressure 147/88 H 139/86 142/84 H Pulse Oximetry 100 100 100 10/24/18 08:00 10/24/18 09:00 10/24/18 10:00 Temperature Pulse Rate 62 66 58 L Respiratory Rate 18 18 18 Blood Pressure 138/84 140/81 145/81 H Pulse Oximetry 100 99 97 10/24/18 11:00 10/24/18 12:00 10/24/18 13:00 Temperature 98.7 F 99.0 F Pulse Rate 70 57 L 66 Respiratory Rate 20 18 18 Blood Pressure 135/82 132/73 133/67 Pulse Oximetry 98 100 100 10/24/18 14:00 10/24/18 15:00 10/24/18 16:00 Temperature 98.9 F Pulse Rate 72 60 70 Respiratory Rate 20 16 20 Blood Pressure 128/78 169/86 H 137/77 Pulse Oximetry 100 100 100 10/24/18 17:00 10/24/18 18:00 10/24/18 19:00 Temperature Pulse Rate 63 79 78 Respiratory Rate 16 18 21 Blood Pressure 145/79 H 149/74 H 134/79 Pulse Oximetry 100 100 100 10/24/18 19:49 10/24/18 20:00 10/24/18 21:00 Temperature 97.6 F Pulse Rate 96 H 79 Respiratory Rate 25 H 24 Blood Pressure 151/83 H Pulse Oximetry 100 74 L 99 10/24/18 22:00 Temperature Pulse Rate 58 L Respiratory Rate 18 Blood Pressure 147/81 H Pulse Oximetry 100 Intake & Output 10/24/18 10/24/18 10/25/18 06:59 18:59 06:59 Intake Total 1105 / 1105 1155 / 1155 Output Total 250 / 250 Balance 855 / 855 1155 / 1155 Weight 58.8 kg Intake: IV 1105 / 1105 1105 / 1105 NS Inj 1,000 ML @ 75 mls/hr IV. 900 / 900 1000 / 1000 CONT .[id number] TOAN Rx#:[id number] Rocephin Inj 2,000 MG In NS Inj 100 / 100 100 ML @ 200 mls/hr IV.SIG Q12H TOAN Rx#:[id number] Keppra Inj 500 MG In NS Inj 100 105 / 105 105 / 105 ML @ 400 mls/hr IV.SIG Q12H TOAN Rx#:[id number] Oral 50 / 50 Output: Urine Amount (Catheter) 250 / 250 Condom 250 / 250 Other: # Incontinent Voids 8 6 Date of Last Bowel Movement 10/23/18 10/23/18 Narrative: GENERAL: NAD with restrains to BUEs SKIN: Warm and dry. HEAD: Atraumatic. Normocephalic. EYES: Pupils equal and round. No scleral icterus. No injection or drainage. ENT: No nasal bleeding or discharge. Mucous membranes pink and moist. NECK: Trachea midline. No JVD. CARDIOVASCULAR: Regular rate and rhythm. RESPIRATORY: No accessory muscle use. Clear to auscultation. Breath sounds equal bilaterally. GASTROINTESTINAL: Abdomen soft, non-tender, nondistended. Hepatic and splenic margins not palpable. MUSCULOSKELETAL: Extremities without clubbing, cyanosis, or edema. No obvious deformities. NEUROLOGICAL: Awake and alert. No obvious cranial nerve deficits. moves all 4 extremities. Normal speech. PSYCHIATRIC: Appropriate mood and affect; insight and judgment normal. - Urinary Catheter Management Indwelling Urethral Catheter Cath placed during this visit: yes, but has since been removed by the nurse Urethral indwelling: Yes Reason for continuing: Decision to DC catheter Insertion date: 10/15/18 Insertion time: 14:00 Removal date: 10/21/18 Removal time: 18:00 Condom Cath placed during this visit: yes Reason for continuing: Not indwelling catheter Insertion date: 10/21/18 Insertion time: 18:00 Assessment and Plan - Plan 53 year old male s/p mild subdural hemorrhage right frontal, left tentorium, left anterior falx, left temporal, stable f/u CT Brain 10/17/18 skull base fracture placement of ICP monitor 10/15/18, removed 10/18 due to absence of observed intracranial hypertension EEG 10/16/18 no evidence of seizures, moderate to severe encephalopathy metabolic encephalopathy Traumatic subdural hemorrhage/subarachnoid hemorrhage with skull base fracture Upper GI bleed Anemia-most likely acute on chronic blood loss related Acute respiratory failure Sepsis Pneumonia Left upper lobe cavitary lesion-mass versus infectious versus other inflammatory process. Sputum AFB positive - MTB PCR negative Positive rheumatoid factor COPD Hypertension History of alcohol abuse Plan: Neuro: Continue neuro checks. Discontinued all sedation and CIWA on 10/21. Precedex as needed On IV thiamine/folic acid/MVI. Watch for alcohol withdrawal when extubated Previous EEG showed moderate encephalopathy Neuro exam improving. Patient able to follow commands Pulmonary: Continue mechanical ventilation, vent bundle, bronchodilators. Sputum AFB stain positive however MTB PCR negative. Consulted pulmonary/ID for further evaluation of left upper lobe cavitary lesion. Bronchoscopy 10/21/18 showed inflammation no obvious mass Extubated 10/22 GI/liver: GI Dr. Pretty. EGD done on 10/16 was negative for any active bleeding, blood clot in fundus probably from blood tracking down from pharynx, Grade A esophagitis noted. Protonix drip discontinued and placed on daily Protonix Defer to GI regarding colonoscopy as patient appears to have acute on chronic anemia as he came in with a hemoglobin of 5.5 and was hemodynamically stable. Heme: Follow CBC, Transfused 2 units PRBCs on 10/15. transfuse to keep hemoglobin above 7 g% provided patient maintains hemodynamic stability. ID/MSK: Started on Ceftriaxone IV q12hrs for Basilar skull fracture antibiotic prophylaxis by ID ID has discontinued Ceftazidime IV, Vanco IV and Flagyl on 10/21/2018 Rheumatoid factor positive, elevated sed rate but without further history hard to confirm rheumatoid arthritis Sputum positive for AFB. MTB PCR negative s/p Bronch 10/21 by pulmonary, follow-up on bronch cx, still pending Endocrine: Watch for hyperglycemia, SSI for glycemic control if needed. Protonix SCDs. No heparin in view of GI bleed, subdural hemorrhage/ subarachnoid hemorrhage
[2018-10-25] MEDS: Sod Chloride 0.9% Inj 1,000 ML IV.CONT SCH ×3 (05:01→22:33)
[2018-10-25] MEDS: Pantoprazole Inj 40 MG Vial IV.PUSH SCH (10:25)
--- NOTE | 2018-10-25 11:04 | P.PNPAL ---
Reason for Visit Reason for visit: a. To assist with evaluation and management of symptoms including: Pain, dyspnea b. To assist medical decision maker(s) with: better understanding of current medical conditions; weighing benefits/burdens of medical treatment options; making medical treatment decisions. Subjective Subjective/Interval History: This is a 53-year-old male who presented as a trauma alert secondary to fall. He was found down at home. EMS attempted to obtain an airway in the field due to his altered mental status however patient was clenching his teeth after being given Versed and etomidate. Upon arrival to the ED he was noted to have a GCS of 8 and was intubated for airway protection. He also had NG tube placed with large amount of coffee-ground gastric drainage returned. He was noted to have a hemoglobin of 5.5. Family reporting long history of alcohol and substance abuse. Patient was reportedly drinking an average of a 12 pack of beer a day. He was admitted to the [facility], neurosurgery was consulted for intracranial hemorrhage, GI was consulted for upper GI bleed, urology was consulted due to bladder wall thickening and renal calculi, pulmonology was consulted for lung mass finding, infectious disease was consulted for AFB positive sputum cultures. Patient had ICP monitor placed, ICPs have been stable. Hemoglobin improved with 2 units of RBCs to 9.2 but is now downtrending to 7.8. ABGs essentially unchanged aside from slight improvement and hemoglobin. Additional history: * Brain CT: 1. Mild subdural hemorrhage seen at the right frontal region, left tentorium, left anterior falx, and left temporal region. The left temporal region hemorrhage could also be subarachnoid hemorrhage.2. Suspected skull base fracture around the sphenoid sinus and at the anterior inferior aspect of the right middle cranial fossa. There appears to be air within the suprasellar cistern region. * Cervical spine CT: No acute fracture or subluxation. Degenerative spondylolysis. Partial image of large cavitary lesion of the left lung apex * Chest CT: 1. Prominent cavitary mass along the anterior lateral left upper lung. This could be inflammatory/infectious versus neoplastic. It is nonspecific. 2. Patchy areas of consolidation seen at the posterior left lower lung with some lesser degree of cavitary change. This most closely resembles postinflammatory change although is nonspecific. 3. Small nodules measuring less than 5 mm at the anterior left lower lung and at the right middle lobe. These are nonspecific. They can be followed. 4. Significant adenopathy is not seen. * Abdomen CT: 1. Extensive wall thickening urinary bladder, neoplastic process should be excluded. 2. Diverticulosis without diverticulitis. 3. Bilateral nonobstructing renal calculi. 4. Left basilar infiltrate. * Sputum culture: Positive for AFB * EEG 10/16: Consistent with moderate to severe encephalopathy * Carotid Doppler study 10/16: Negative study * 2D echo 10/16: EF 55-60% * Follow-up brain CT 10/17/18 was stable At time of my visit today, patient breathing easy on nasal cannula. He has a productive cough. He remains restrained. He essentially only answers questions with single word answers and is soft spoken. He currently denies any pain. He remains on isolation for AFB positive bronchial washings. PCR sputum was negative. No family at bedside to update. Objective Vital Signs: Vital Signs 10/24/18 11:00 10/24/18 12:00 10/24/18 13:00 Temperature 98.7 F 99.0 F Pulse Rate 70 57 L 66 Respiratory Rate 20 18 18 Blood Pressure 135/82 132/73 133/67 Pulse Oximetry 98 100 100 10/24/18 14:00 10/24/18 15:00 10/24/18 16:00 Temperature 98.9 F Pulse Rate 72 60 70 Respiratory Rate 20 16 20 Blood Pressure 128/78 169/86 H 137/77 Pulse Oximetry 100 100 100 10/24/18 17:00 10/24/18 18:00 10/24/18 19:00 Temperature Pulse Rate 63 79 78 Respiratory Rate 16 18 21 Blood Pressure 145/79 H 149/74 H 134/79 Pulse Oximetry 100 100 100 10/24/18 19:49 10/24/18 20:00 10/24/18 21:00 Temperature 97.6 F Pulse Rate 96 H 79 Respiratory Rate 25 H 24 Blood Pressure 151/83 H Pulse Oximetry 100 74 L 99 10/24/18 22:00 10/24/18 23:00 10/25/18 00:00 Temperature 97.5 F L Pulse Rate 58 L 86 73 Respiratory Rate 18 22 22 Blood Pressure 147/81 H 146/87 H 164/87 H Pulse Oximetry 100 100 100 10/25/18 01:00 10/25/18 02:00 10/25/18 03:00 Temperature Pulse Rate 69 57 L 74 Respiratory Rate 19 19 16 Blood Pressure 144/80 H 147/78 H 148/85 H Pulse Oximetry 97 100 100 10/25/18 04:00 10/25/18 05:00 10/25/18 06:00 Temperature Pulse Rate 54 L 54 L 75 Respiratory Rate 17 17 19 Blood Pressure 156/94 H 172/83 H 142/73 H Pulse Oximetry 100 100 100 10/25/18 07:00 10/25/18 08:00 10/25/18 08:12 Temperature 98 F Pulse Rate 55 L 70 Respiratory Rate 18 15 Blood Pressure 154/83 H 129/78 Pulse Oximetry 100 100 98 10/25/18 09:00 Temperature Pulse Rate 71 Respiratory Rate 23 Blood Pressure 140/75 Pulse Oximetry 87 L Intake & Output 10/24/18 10/25/18 10/25/18 18:59 06:59 18:59 Intake Total 1155 / 1155 1545 / 1545 Balance 1155 / 1155 1545 / 1545 Weight 58.6 kg Intake: IV 1105 / 1105 1305 / 1305 NS Inj 1,000 ML @ 75 mls/hr IV. 1000 / 1000 1000 / 1000 CONT .[id number] TOAN Rx#:[id number] Rocephin Inj 2,000 MG In NS Inj 200 / 200 100 ML @ 200 mls/hr IV.SIG Q12H TOAN Rx#:[id number] Keppra Inj 500 MG In NS Inj 100 105 / 105 105 / 105 ML @ 400 mls/hr IV.SIG Q12H TOAN Rx#:[id number] Oral 50 / 50 240 / 240 Other: # Incontinent Voids 6 3 Date of Last Bowel Movement 10/23/18 10/23/18 10/23/18 # Incontinent Bowel Movements 0 Physical Exam: CONSTITUTIONAL/GENERAL: Cachectic male in no apparent distress. TUBES/LINES/DRAINS: Peripheral IV SKIN: Right periorbital ecchymosis, multiple scars bilateral upper extremities multiple lesions in different stages of healing bilateral upper extremities EYES: Pupils equal and reactive to light ENT: Poor dentition, speech is soft CARDIOVASCULAR: Regular rate and rhythm without murmurs, gallops, or rubs. No JVD. Peripheral pulses symmetric. RESPIRATORY/CHEST: Breath sounds equal bilaterally, some scattered rhonchi, productive cough GASTROINTESTINAL: Abdomen soft, non-tender, nondistended. No hepato-splenomegaly , or palpable masses. GENITOURINARY: Without palpable bladder distension. MUSCULOSKELETAL: Moving all extremities weakly, restrained NEUROLOGICAL: Drowsy. Follow simple commands. Answers most questions with single word answers. PSYCHIATRIC: Calm. Diagnostic Tests Laboratory: Laboratory Results - last 72 hr 10/23/18 10/24/18 10/24/18 03:45 06:02 06:02 WBC 12.2 H RBC 3.22 L Hgb 9.8 L 10.6 L Hct 29.3 L MCV 90.7 MCH 30.5 MCHC 33.6 RDW 15.7 Plt Count 546 H MPV 8.8 Neut % (Auto) 77.1 H Lymph % (Auto) 13.8 [place] % (Auto) 8.2 H Eos % (Auto) 0.1 Baso % (Auto) 0.8 Neut # (Auto) 9.4 H Lymph # (Auto) 1.7 [place] # (Auto) 1.0 H Eos # (Auto) 0.0 Baso # (Auto) 0.1 WBC Differential . Differential Comment Auto diff final Creatinine 0.50 L Estimated GFR Greater than 89 10/25/18 04:23 WBC RBC Hgb 9.3 L Hct MCV MCH MCHC RDW Plt Count MPV Neut % (Auto) Lymph % (Auto) [place] % (Auto) Eos % (Auto) Baso % (Auto) Neut # (Auto) Lymph # (Auto) [place] # (Auto) Eos # (Auto) Baso # (Auto) WBC Differential Differential Comment Creatinine Estimated GFR Result Diagrams: 10/25/18 04:23 10/24/18 06:02 Microbiology: Microbiology 10/21/18 13:22 Aerobic Blood Culture - Preliminary Blood - Peripheral No growth in 3 days Anaerobic Blood Culture - Preliminary No growth in 3 days 10/21/18 13:14 Aerobic Blood Culture - Preliminary Blood - Peripheral No growth in 3 days Anaerobic Blood Culture - Preliminary No growth in 3 days 10/21/18 12:40 Acid Fast Bacilli Smear - Final Bronchial Washings - Left Upper Lobe Acid Fast Bacilli Seen 10/21/18 12:40 Acid Fast Bacilli Smear - Final Bronchial Brushings - Left Upper Lobe No acid fast bacilli seen 10/21/18 12:40 Fungal Smear - Final Bronchial Brushings - Left Upper Lobe 10/18/18 07:05 Aerobic Blood Culture - Final Blood - Peripheral No growth in 5 days Anaerobic Blood Culture - Final No growth in 5 days 10/18/18 07:55 Aerobic Blood Culture - Final Blood - Peripheral No growth in 5 days Anaerobic Blood Culture - Final No growth in 5 days 10/21/18 12:40 Gram Stain - Final Bronchial - Left Upper Lobe Bronchial Culture - Final Staphylococcus aureus 10/21/18 12:40 Bronchial [place] Culture - Final Bronchial Brushings - Left Upper Lobe No growth in 48 hours 10/21/18 12:40 Fungal Smear - Final Bronchial Washings - Left Upper Lobe No fungal elements seen Procedures: 10/15/18: Intubated, bolt placed 10/16/18: EEG, no evidence of seizures 10/18/18: Both removed 10/21/18: Bronchoscopy Assessment and Plan - Symptom Scale (1) Anxiety 0-10 Scale: Unable to quantify (2) Dyspnea 0-10 Scale: Unable to quantify (3) Pain 0-10 Scale: Unable to quantify (4) Confusion 0-10 Scale: Unable to quantify Pertinent Non-Medical Issues: Psychosocial: Patient was living independently with a roommate prior to history of alcohol and substance abuse. He has been incarcerated several times. Spiritual: Nanny/Household Manager available. Legal: Patient appears to have poor insight into his illness, questionable capacity to make his own decisions. Per legal, POA paperwork previously produced not valid for healthcare decisions. Per [place] statutes, decision making falls to the majority of patients 4 sisters. Ethical issues impacting care: None Important Contacts: Aunt Tanja [phone] (financial POA) Sister Edith [phone] Sister Leydi ([facility]) [phone] Sister Vira [phone] ([place]) Sister Reji [phone] ([place]) Prognosis: Given long history of alcohol and substance abuse patient at risk for setbacks. Withdrawal may also contribute to worsening of intracranial hemorrhage and/or respiratory status. Patient likely will survive this hospitalization though may have residual cognitive and functional deficits, remains at risks for complications. Code Status: Full Code Plan: Legal decision maker: Patient appears to have limited capacity at best, best supported by his sisters and decision making.Per legal, POA paperwork previously produced not valid for healthcare decisions. Per [place] statutes, decision making falls to the majority of patients 4 sisters. Goals: Goals remain aggressive at this time. Patient has remained extubated tolerating nasal cannula. We will likely transfer out of ICU in the coming days. CODE STATUS: FULL CODE SYMPTOMS: --Dyspnea: Now extubated on 2 L nasal cannula. Appears comfortable. Has long history of positive AFB cultures. At risk for respiratory distress/failure secondary to alcohol withdrawal. Positive AFB bronchial washings pending. --Anxiety: Remains in restraints. Appears calm and quiet at this time. At risk for anxiety secondary to hospitalization, alcohol withdrawal, and neuro status. Will need to continue to monitor closely in the coming days. Remains on Precedex drip Palliative care will continue to follow during hospital course as condition evolves, to assist patient/decision-maker with understanding of medical conditions, weighing benefits/burdens of treatment options, for clarification of goals of treatment. Additionally will assist with any symptoms of palliative concern
--- NOTE | 2018-10-25 12:35 | P.PNID ---
Subjective Remarks: Patient is confused. Opens his eyes. Says that he feels okay. Not making sense. Right eye is ecchymotic. Coughing. Afebrile. Sputum culture staph aureus. Bronch AFB smear positive. AFB evaluation in progress is a 53-year-old white male, who was brought to the emergency department in an unresponsive state. The patient was noted to have a skull fracture and a subdural hemorrhage at the right frontal region. He was intubated. He was taken to surgery, and underwent bur hole with evacuation of subarachnoid and subdural hemorrhage. The patient is unresponsive on the ventilator. Information is obtained from the medical record. No history is available at this time. The patient had elevated temperature of 102 on admission. Temperatures today have decreased, and are in normal range; however , it was elevated most of yesterday evening. White blood cell count is elevated at 20.3. Chest x-ray showed ill-defined parenchymal and pleural opacity in the left upper lobe. CT scan of the chest shows a prominent cavitary mass along the left anterolateral upper lung, and also patchy areas of consolidation at the posterior left lower lobe with some lesser degree of cavitary change. Small nodules measuring less than 5 mm were seen at the anterior left lower lobe, and at the right middle lobe. Past history of multiple incarcerations. ? Positive PPD. Antibiotics: Ceftriaxone IV. Lines: Lines ok Past Medical History: reviewed Allergies/Adverse Reactions: Allergies lisinopril Allergy (Intermediate, Verified 10/15/18 13:39) hallucinations amlodipine Allergy (Unknown, Verified 10/15/18 13:38) headaches Objective Vital Signs 10/24/18 13:00 10/24/18 14:00 10/24/18 15:00 Temperature 99.0 F Pulse Rate 66 72 60 Respiratory Rate 18 20 16 Blood Pressure 133/67 128/78 169/86 H Pulse Oximetry 100 100 100 10/24/18 16:00 10/24/18 17:00 10/24/18 18:00 Temperature 98.9 F Pulse Rate 70 63 79 Respiratory Rate 20 16 18 Blood Pressure 137/77 145/79 H 149/74 H Pulse Oximetry 100 100 100 10/24/18 19:00 10/24/18 19:49 10/24/18 20:00 Temperature 97.6 F Pulse Rate 78 96 H Respiratory Rate 21 25 H Blood Pressure 134/79 Pulse Oximetry 100 100 74 L 10/24/18 21:00 10/24/18 22:00 10/24/18 23:00 Temperature Pulse Rate 79 58 L 86 Respiratory Rate 24 18 22 Blood Pressure 151/83 H 147/81 H 146/87 H Pulse Oximetry 99 100 100 10/25/18 00:00 10/25/18 01:00 10/25/18 02:00 Temperature 97.5 F L Pulse Rate 73 69 57 L Respiratory Rate 22 19 19 Blood Pressure 164/87 H 144/80 H 147/78 H Pulse Oximetry 100 97 100 10/25/18 03:00 10/25/18 04:00 10/25/18 05:00 Temperature Pulse Rate 74 54 L 54 L Respiratory Rate 16 17 17 Blood Pressure 148/85 H 156/94 H 172/83 H Pulse Oximetry 100 100 100 10/25/18 06:00 10/25/18 07:00 10/25/18 08:00 Temperature 98 F Pulse Rate 75 55 L 70 Respiratory Rate 19 18 15 Blood Pressure 142/73 H 154/83 H 129/78 Pulse Oximetry 100 100 100 10/25/18 08:12 10/25/18 09:00 Temperature Pulse Rate 71 Respiratory Rate 23 Blood Pressure 140/75 Pulse Oximetry 98 87 L Intake & Output 10/24/18 10/25/18 10/25/18 18:59 06:59 18:59 Intake Total 1155 / 1155 1545 / 1545 Balance 1155 / 1155 1545 / 1545 Weight 58.6 kg Intake: IV 1105 / 1105 1305 / 1305 NS Inj 1,000 ML @ 75 mls/hr IV. 1000 / 1000 1000 / 1000 CONT .[id number] TOAN Rx#:[id number] Rocephin Inj 2,000 MG In NS Inj 200 / 200 100 ML @ 200 mls/hr IV.SIG Q12H TOAN Rx#:[id number] Keppra Inj 500 MG In NS Inj 100 105 / 105 105 / 105 ML @ 400 mls/hr IV.SIG Q12H TOAN Rx#:[id number] Oral 50 / 50 240 / 240 Other: # Incontinent Voids 6 3 Date of Last Bowel Movement 10/23/18 10/23/18 10/23/18 # Incontinent Bowel Movements 0 10/21/18 13:22 Blood - Peripheral Aerobic Blood Culture - Preliminary No growth in 4 days 10/21/18 13:22 Blood - Peripheral Anaerobic Blood Culture - Preliminary No growth in 4 days 10/21/18 13:14 Blood - Peripheral Aerobic Blood Culture - Preliminary No growth in 4 days 10/21/18 13:14 Blood - Peripheral Anaerobic Blood Culture - Preliminary No growth in 4 days 10/21/18 12:40 Bronchial Washings - Left Upper Lobe Acid Fast Bacilli Smear - Final Acid Fast Bacilli Seen 10/21/18 12:40 Bronchial Washings - Left Upper Lobe Mycobacterial Culture - Pending 10/21/18 12:40 Bronchial Brushings - Left Upper Lobe Acid Fast Bacilli Smear - Final No acid fast bacilli seen 10/21/18 12:40 Bronchial Brushings - Left Upper Lobe Mycobacterial Culture - Pending 10/21/18 12:40 Bronchial Brushings - Left Upper Lobe Fungal Smear - Final 10/21/18 12:40 Bronchial Brushings - Left Upper Lobe Fungal Culture - Pending 10/18/18 07:05 Blood - Peripheral Aerobic Blood Culture - Final No growth in 5 days 10/18/18 07:05 Blood - Peripheral Anaerobic Blood Culture - Final No growth in 5 days 10/18/18 07:55 Blood - Peripheral Aerobic Blood Culture - Final No growth in 5 days 10/18/18 07:55 Blood - Peripheral Anaerobic Blood Culture - Final No growth in 5 days 10/21/18 12:40 Bronchial - Left Upper Lobe Gram Stain - Final 10/21/18 12:40 Bronchial - Left Upper Lobe Bronchial Culture - Final Staphylococcus aureus 10/21/18 12:40 Bronchial Brushings - Left Upper Lobe Bronchial [place] Culture - Final No growth in 48 hours 10/21/18 12:40 Bronchial Washings - Left Upper Lobe Fungal Smear - Final No fungal elements seen 10/21/18 12:40 Bronchial Washings - Left Upper Lobe Fungal Culture - Pending Lab - Hematology Results 10/24/18 10/25/18 06:02 04:23 Hgb 10.6 L 9.3 L Lab - Chemistry Results 10/24/18 06:02 Creatinine 0.50 L Estimated GFR Greater than 89 Imaging: ITS Impressions Cervical Spine CT 10/15/18 13:26 CONCLUSION: 1. No acute fracture or subluxation. 2. Partially imaged large cavitary lesion in the left lung apex. Chest CT to follow. 3. Multilevel degenerative spondylosis of the cervical spine. Abdomen/Pelvis CT 10/15/18 15:27 CONCLUSION: 1. Extensive wall thickening urinary bladder, neoplastic process should be excluded. 2. Diverticulosis without diverticulitis. 3. Bilateral nonobstructing renal calculi. 4. Left basilar infiltrate. Chest CT 10/15/18 15:27 CONCLUSION: 1. Prominent cavitary mass along the anterior lateral left upper lung. This could be inflammatory/infectious versus neoplastic. It is nonspecific. 2. Patchy areas of consolidation seen at the posterior left lower lung with some lesser degree of cavitary change. This most closely resembles postinflammatory change although is nonspecific. 3. Small nodules measuring less than 5 mm at the anterior left lower lung and at the right middle lobe. These are nonspecific. They can be followed. 4. Significant adenopathy is not seen. Carotid Doppler Study 10/16/18 10:06 CONCLUSION: Negative examination for a hemodynamically significant carotid stenosis. Gianni Raymundo MD FACR Head CT 10/17/18 00:00 CONCLUSION: 1. Stable exam as detailed above. . Knee X-Ray 10/21/18 00:00 CONCLUSION: 1. Chronic irregularity of the superior pole along the patella with apparent ossification. There is adjacent mild soft tissue prominence. 2. Remote postsurgical changes in the proximal tibia. Chest X-Ray 10/21/18 06:00 CONCLUSION: No significant interval change in left lung opacity. Physical Exam: GENERAL: No acute distress. HEENT: Pupils reactive to light. Extraocular movements intact. No icterus. Oropharynx mucosa slightly dry. NECK: Supple without adenopathy. No swelling. LUNGS: Coarse bibasilar rhonchi. HEART: Regular S1-S2 without murmurs rubs or gallops. ABDOMEN: Bowel sounds present, soft, no tenderness appreciated. EXTREMITIES: No clubbing cyanosis or edema. SKIN: No diffuse rash. NEUROLOGIC: Unable to assess. PSYCH: Unable to assess. Assessment and Plan - Plan Positive AFB in sputum with lung cavity: DDx: Pulm TB vs Atypical mycobacteria with secondary bacterial infection of cavity. PCR and DNA testing on AFB and sputum reveals that it is not tuberculosis. Spoke with microbiology. Specimen sent to [facility]. Awaiting identification. New bronchoscopy sputum smear is positive for AFB. Patient indicates that he was treated for TB before. Given his mental status he is not clear whether this is accurate. Encephalopathy Traumatic subdural hemorrhage/subarachnoid hemorrhage with skull base fracture Anemia-most likely acute on chronic blood loss related Sepsis Pneumonia Left upper lobe cavitary lesion-mass versus infectious versus other inflammatory process Recommend: Continue ceftriaxone IV q12hrs for Basilar skull fracture antibiotic prophylaxis. Above regimen covers Skull base fracture prophylaxis and also secondary bacterial infection of lung cavity. Follow sputum AFB identity. AFB isolation while awaiting results of the AFB test. Follow clinical course. Discussed with YRIS.
--- NOTE | 2018-10-25 12:36 | P.PN ---
Subjective Interval history: Follow-up sepsis 10/25/18-Patient seen and examined; following commands and answering some of my questions appropriately. Afebrile. case d/w ID specialist and RN Physical Exam Vital signs: Vital Signs 10/24/18 13:00 10/24/18 14:00 10/24/18 15:00 Temperature 99.0 F Pulse Rate 66 72 60 Respiratory Rate 18 20 16 Blood Pressure 133/67 128/78 169/86 H Pulse Oximetry 100 100 100 10/24/18 16:00 10/24/18 17:00 10/24/18 18:00 Temperature 98.9 F Pulse Rate 70 63 79 Respiratory Rate 20 16 18 Blood Pressure 137/77 145/79 H 149/74 H Pulse Oximetry 100 100 100 10/24/18 19:00 10/24/18 19:49 10/24/18 20:00 Temperature 97.6 F Pulse Rate 78 96 H Respiratory Rate 21 25 H Blood Pressure 134/79 Pulse Oximetry 100 100 74 L 10/24/18 21:00 10/24/18 22:00 10/24/18 23:00 Temperature Pulse Rate 79 58 L 86 Respiratory Rate 24 18 22 Blood Pressure 151/83 H 147/81 H 146/87 H Pulse Oximetry 99 100 100 10/25/18 00:00 10/25/18 01:00 10/25/18 02:00 Temperature 97.5 F L Pulse Rate 73 69 57 L Respiratory Rate 22 19 19 Blood Pressure 164/87 H 144/80 H 147/78 H Pulse Oximetry 100 97 100 10/25/18 03:00 10/25/18 04:00 10/25/18 05:00 Temperature Pulse Rate 74 54 L 54 L Respiratory Rate 16 17 17 Blood Pressure 148/85 H 156/94 H 172/83 H Pulse Oximetry 100 100 100 10/25/18 06:00 10/25/18 07:00 10/25/18 08:00 Temperature 98 F Pulse Rate 75 55 L 70 Respiratory Rate 19 18 15 Blood Pressure 142/73 H 154/83 H 129/78 Pulse Oximetry 100 100 100 10/25/18 08:12 10/25/18 09:00 Temperature Pulse Rate 71 Respiratory Rate 23 Blood Pressure 140/75 Pulse Oximetry 98 87 L Intake & Output 10/24/18 10/25/18 10/25/18 18:59 06:59 18:59 Intake Total 1155 / 1155 1545 / 1545 Balance 1155 / 1155 1545 / 1545 Weight 58.6 kg Intake: IV 1105 / 1105 1305 / 1305 NS Inj 1,000 ML @ 75 mls/hr IV. 1000 / 1000 1000 / 1000 CONT .[id number] TOAN Rx#:[id number] Rocephin Inj 2,000 MG In NS Inj 200 / 200 100 ML @ 200 mls/hr IV.SIG Q12H TOAN Rx#:[id number] Keppra Inj 500 MG In NS Inj 100 105 / 105 105 / 105 ML @ 400 mls/hr IV.SIG Q12H TOAN Rx#:[id number] Oral 50 / 50 240 / 240 Other: # Incontinent Voids 6 3 Date of Last Bowel Movement 10/23/18 10/23/18 10/23/18 # Incontinent Bowel Movements 0 Narrative: GENERAL: NAD with restrains to BUEs SKIN: Warm and dry. HEAD: Atraumatic. Normocephalic. EYES: Pupils equal and round. No scleral icterus. No injection or drainage. ENT: No nasal bleeding or discharge. Mucous membranes pink and moist. NECK: Trachea midline. No JVD. CARDIOVASCULAR: Regular rate and rhythm. RESPIRATORY: No accessory muscle use. Clear to auscultation. Breath sounds equal bilaterally. GASTROINTESTINAL: Abdomen soft, non-tender, nondistended. Hepatic and splenic margins not palpable. MUSCULOSKELETAL: Extremities without clubbing, cyanosis, or edema. No obvious deformities. NEUROLOGICAL: Awake and alert. No obvious cranial nerve deficits. Motor grossly within normal limits. Five out of 5 muscle strength in the arms and legs. Normal speech. PSYCHIATRIC: Appropriate mood and affect; insight and judgment normal. - Urinary Catheter Management Indwelling Urethral Catheter Cath placed during this visit: yes, but has since been removed by the nurse Urethral indwelling: Yes Reason for continuing: Decision to DC catheter Insertion date: 10/15/18 Insertion time: 14:00 Removal date: 10/21/18 Removal time: 18:00 Condom Cath placed during this visit: yes Reason for continuing: Not indwelling catheter Insertion date: 10/21/18 Insertion time: 18:00 Results - Labs CBC & Chem 7: 10/25/18 04:23 10/24/18 06:02 Laboratory Results - last 24 hr 10/25/18 04:23 Hgb 9.3 L Microbiology 10/21/18 13:22 Blood - Peripheral Aerobic Blood Culture - Preliminary No growth in 4 days 10/21/18 13:22 Blood - Peripheral Anaerobic Blood Culture - Preliminary No growth in 4 days 10/21/18 13:14 Blood - Peripheral Aerobic Blood Culture - Preliminary No growth in 4 days 10/21/18 13:14 Blood - Peripheral Anaerobic Blood Culture - Preliminary No growth in 4 days Assessment and Plan - Plan 53-year-old man with Acute metabolic encephalopathy Traumatic subdural hemorrhage/subarachnoid hemorrhage with skull base fracture Neurosurgery Dr. Garcia performed burrhole with ICP monitor placement. Now ICP monitor removed Repeat head CT 10/17 noted. On IV thiamine/folic acid/MVI. Watch for alcohol withdrawal when extubated Previous EEG showed moderate encephalopathy Currently on Keppra IV every 12 hours Continue with neuro check Upper GI bleed Anemia-most likely acute on chronic blood loss related GI Dr. Pretty. EGD done on 10/16 was negative for any active bleeding, blood clot in fundus probably from blood tracking down from pharynx, Grade A esophagitis noted. Protonix drip discontinued and placed on daily Protonix. Transfused 2 units PRBCs on 10/15. transfuse to keep hemoglobin above 7 g% provided patient maintains hemodynamic Acute respiratory failure Sputum AFB stain positive however MTB PCR negative. Consulted pulmonary/ID for further evaluation of left upper lobe cavitary lesion. Pulmonary Dr. Ngo following. Bronchoscopy 10/21/18 showed inflammation no obvious mass Extubated 10/22 Continue with DuoNeb as needed, and maintain oxygen saturation above 92% Sepsis Pneumonia Left upper lobe cavitary lesion-mass versus infectious versus other inflammatory process. Sputum AFB positive - MTB PCR negative Started on Ceftriaxone IV q12hrs for Basilar skull fracture antibiotic prophylaxis by ID s/p Ceftazidime IV, Vanco IV and Flagyl on 10/21/2018 Rheumatoid factor positive, elevated sed rate but without further history hard to confirm rheumatoid arthritis Sputum positive for AFB. MTB PCR negative s/p Bronch 10/21 by pulmonary, follow-up on bronch cx, still pending COPD Not in exacerbation Hypertension Resume Norvasc 5 mg daily History of alcohol abuse CIWA protocol, Rally pack Prophylaxis: Protonix SCDs. No subcu heparin in view of GI bleed, subdural hemorrhage/ subarachnoid hemorrhage until cleared by neurosurgery and GI Transfer to [facility] a negative pressure room Decrease IV fluid to 40 cc/h
--- NOTE | 2018-10-25 15:42 | P.PNNS ---
Subjective Interval history: 3-year-old male with a medical history significant for hypertension, COPD who was found down at home, EMS was called and attempted intubation in the field for altered mental status after giving Versed and etomidate however patient had his teeth clenched and they could not intubated hence patient was bagged and brought to the ER. He was intubated in the ER and placed on mechanical ventilation. Head CT revealed left-sided small subdural hemorrhage and subarachnoid hemorrhage with skull base fracture with air around the sella. His hemoglobin came back 5.5. He was also noted to have coffee-ground material suctioned out of his NG tube. No melena or rectal bleeding noted. He was never hypotensive with systolic blood pressure in the 150s though he was tachycardic on arrival. He did spike a temperature in the ER of 101. Chest x- ray showed possible cavitary lesion in the left apex. Patient was accepted for admission by critical care medicine service after ER physician as discussed with trauma surgeon as well as Dr. Garcia from neurosurgery. When I evaluated the patient in the ER he was sedated with propofol, orally intubated on mechanical ventilation. 10/24: Extubated 2 days ago, continues to breathe comfortably. Initial sputum culture for TB negative on final report. 10/25. Responds appropriately, follows commands. No issues overnight Physical Exam Vital signs: Vital Signs 10/24/18 16:00 10/24/18 17:00 10/24/18 18:00 Temperature 98.9 F Pulse Rate 70 63 79 Respiratory Rate 20 16 18 Blood Pressure 137/77 145/79 H 149/74 H Pulse Oximetry 100 100 100 10/24/18 19:00 10/24/18 19:49 10/24/18 20:00 Temperature 97.6 F Pulse Rate 78 96 H Respiratory Rate 21 25 H Blood Pressure 134/79 Pulse Oximetry 100 100 74 L 10/24/18 21:00 10/24/18 22:00 10/24/18 23:00 Temperature Pulse Rate 79 58 L 86 Respiratory Rate 24 18 22 Blood Pressure 151/83 H 147/81 H 146/87 H Pulse Oximetry 99 100 100 10/25/18 00:00 10/25/18 01:00 10/25/18 02:00 Temperature 97.5 F L Pulse Rate 73 69 57 L Respiratory Rate 22 19 19 Blood Pressure 164/87 H 144/80 H 147/78 H Pulse Oximetry 100 97 100 10/25/18 03:00 10/25/18 04:00 10/25/18 05:00 Temperature Pulse Rate 74 54 L 54 L Respiratory Rate 16 17 17 Blood Pressure 148/85 H 156/94 H 172/83 H Pulse Oximetry 100 100 100 10/25/18 06:00 10/25/18 07:00 10/25/18 08:00 Temperature 98 F Pulse Rate 75 55 L 70 Respiratory Rate 19 18 15 Blood Pressure 142/73 H 154/83 H 129/78 Pulse Oximetry 100 100 100 10/25/18 08:12 10/25/18 09:00 10/25/18 10:00 Temperature Pulse Rate 71 71 Respiratory Rate 23 18 Blood Pressure 140/75 Pulse Oximetry 98 87 L 100 10/25/18 10:28 10/25/18 11:00 10/25/18 12:00 Temperature 97.4 F L Pulse Rate 68 70 65 Respiratory Rate 20 17 18 Blood Pressure 125/77 137/73 127/81 Pulse Oximetry 100 99 100 10/25/18 13:00 10/25/18 14:00 Temperature Pulse Rate 75 75 Respiratory Rate 25 H 20 Blood Pressure 148/71 H 127/79 Pulse Oximetry 87 L 98 Intake & Output 10/24/18 10/25/18 10/25/18 18:59 06:59 18:59 Intake Total 1155 / 1155 1545 / 1545 Balance 1155 / 1155 1545 / 1545 Weight 58.6 kg Intake: IV 1105 / 1105 1305 / 1305 NS Inj 1,000 ML @ 75 mls/hr IV. 1000 / 1000 1000 / 1000 CONT .[id number] TOAN Rx#:[id number] Rocephin Inj 2,000 MG In NS Inj 200 / 200 100 ML @ 200 mls/hr IV.SIG Q12H TOAN Rx#:[id number] Keppra Inj 500 MG In NS Inj 100 105 / 105 105 / 105 ML @ 400 mls/hr IV.SIG Q12H TOAN Rx#:[id number] Oral 50 / 50 240 / 240 Other: # Incontinent Voids 6 3 Date of Last Bowel Movement 10/23/18 10/23/18 10/23/18 # Incontinent Bowel Movements 0 Narrative: GENERAL: NAD with restrains to BUEs SKIN: Warm and dry. HEAD: Atraumatic. Normocephalic. EYES: Pupils equal and round. No scleral icterus. No injection or drainage. ENT: No nasal bleeding or discharge. Mucous membranes pink and moist. NECK: Trachea midline. No JVD. CARDIOVASCULAR: Regular rate and rhythm. RESPIRATORY: No accessory muscle use. Clear to auscultation. Breath sounds equal bilaterally. GASTROINTESTINAL: Abdomen soft, non-tender, nondistended. Hepatic and splenic margins not palpable. MUSCULOSKELETAL: Extremities without clubbing, cyanosis, or edema. No obvious deformities. NEUROLOGICAL: Awake and alert. No obvious cranial nerve deficits. moves all 4 extremities. Normal speech. PSYCHIATRIC: Appropriate mood and affect; insight and judgment normal. - Urinary Catheter Management Indwelling Urethral Catheter Cath placed during this visit: yes, but has since been removed by the nurse Urethral indwelling: Yes Reason for continuing: Decision to DC catheter Insertion date: 10/15/18 Insertion time: 14:00 Removal date: 10/21/18 Removal time: 18:00 Condom Cath placed during this visit: yes Reason for continuing: Not indwelling catheter Insertion date: 10/21/18 Insertion time: 18:00 Assessment and Plan - Plan 53 year old male s/p mild subdural hemorrhage right frontal, left tentorium, left anterior falx, left temporal, stable f/u CT Brain 10/17/18 skull base fracture placement of ICP monitor 10/15/18, removed 10/18 due to absence of observed intracranial hypertension EEG 10/16/18 no evidence of seizures, moderate to severe encephalopathy metabolic encephalopathy Traumatic subdural hemorrhage/subarachnoid hemorrhage with skull base fracture Upper GI bleed Anemia-most likely acute on chronic blood loss related Acute respiratory failure Sepsis Pneumonia Left upper lobe cavitary lesion-mass versus infectious versus other inflammatory process. Sputum AFB positive - MTB PCR negative Positive rheumatoid factor COPD Hypertension History of alcohol abuse Plan: Neuro: Continue neuro checks. Discontinued all sedation and CIWA on 10/21. Precedex as needed On IV thiamine/folic acid/MVI. Watch for alcohol withdrawal when extubated Previous EEG showed moderate encephalopathy Neuro exam improving. Patient able to follow commands Pulmonary: Continue mechanical ventilation, vent bundle, bronchodilators. Sputum AFB stain positive however MTB PCR negative. Consulted pulmonary/ID for further evaluation of left upper lobe cavitary lesion. Bronchoscopy 10/21/18 showed inflammation no obvious mass Extubated 10/22 GI/liver: GI Dr. Pretty. EGD done on 10/16 was negative for any active bleeding, blood clot in fundus probably from blood tracking down from pharynx, Grade A esophagitis noted. Protonix drip discontinued and placed on daily Protonix Defer to GI regarding colonoscopy as patient appears to have acute on chronic anemia as he came in with a hemoglobin of 5.5 and was hemodynamically stable. Heme: Follow CBC, Transfused 2 units PRBCs on 10/15. transfuse to keep hemoglobin above 7 g% provided patient maintains hemodynamic stability. ID/MSK: Continue ceftriaxone IV q12hrs for Basilar skull fracture antibiotic prophylaxis. Above regimen covers Skull base fracture prophylaxis and also secondary bacterial infection of lung cavity. Follow sputum AFB identity. AFB isolation while awaiting results of the AFB test. Rheumatoid factor positive, elevated sed rate but without further history hard to confirm rheumatoid arthritis Sputum positive for AFB. MTB PCR negative s/p Bronch 10/21 by pulmonary, follow-up on bronch cx, still pending Endocrine: Watch for hyperglycemia, SSI for glycemic control if needed. Protonix SCDs. No heparin in view of GI bleed, subdural hemorrhage/ subarachnoid hemorrhage
[2018-10-25] MEDS: Sodium Chloride 0.9% 2 ML Flush BID IV.FLUSH SCH ×2 (17:44→21:11)
--- NOTE | 2018-10-25 18:02 | P.PN ---
Subjective Interval history: Better today and eating well. On 2 L O2. AFB culture pending and Identification. Neuro status is stable. Physical Exam Vital signs: Vital Signs 10/24/18 19:00 10/24/18 19:49 10/24/18 20:00 Temperature 97.6 F Pulse Rate 78 96 H Respiratory Rate 21 25 H Blood Pressure 134/79 Pulse Oximetry 100 100 74 L 10/24/18 21:00 10/24/18 22:00 10/24/18 23:00 Temperature Pulse Rate 79 58 L 86 Respiratory Rate 24 18 22 Blood Pressure 151/83 H 147/81 H 146/87 H Pulse Oximetry 99 100 100 10/25/18 00:00 10/25/18 01:00 10/25/18 02:00 Temperature 97.5 F L Pulse Rate 73 69 57 L Respiratory Rate 22 19 19 Blood Pressure 164/87 H 144/80 H 147/78 H Pulse Oximetry 100 97 100 10/25/18 03:00 10/25/18 04:00 10/25/18 05:00 Temperature Pulse Rate 74 54 L 54 L Respiratory Rate 16 17 17 Blood Pressure 148/85 H 156/94 H 172/83 H Pulse Oximetry 100 100 100 10/25/18 06:00 10/25/18 07:00 10/25/18 08:00 Temperature 98 F Pulse Rate 75 55 L 70 Respiratory Rate 19 18 15 Blood Pressure 142/73 H 154/83 H 129/78 Pulse Oximetry 100 100 100 10/25/18 08:12 10/25/18 09:00 10/25/18 10:00 Temperature Pulse Rate 71 71 Respiratory Rate 23 18 Blood Pressure 140/75 Pulse Oximetry 98 87 L 100 10/25/18 10:28 10/25/18 11:00 10/25/18 12:00 Temperature 97.4 F L Pulse Rate 68 70 65 Respiratory Rate 20 17 18 Blood Pressure 125/77 137/73 127/81 Pulse Oximetry 100 99 100 10/25/18 13:00 10/25/18 14:00 10/25/18 15:00 Temperature Pulse Rate 75 75 67 Respiratory Rate 25 H 20 18 Blood Pressure 148/71 H 127/79 144/82 H Pulse Oximetry 87 L 98 100 10/25/18 16:00 Temperature Pulse Rate 79 Respiratory Rate 21 Blood Pressure 132/78 Pulse Oximetry 99 Intake & Output 10/24/18 10/25/18 10/25/18 18:59 06:59 18:59 Intake Total 1155 / 1155 1545 / 1545 Balance 1155 / 1155 1545 / 1545 Weight 58.6 kg Intake: IV 1105 / 1105 1305 / 1305 NS Inj 1,000 ML @ 75 mls/hr IV. 1000 / 1000 1000 / 1000 CONT .[id number] TOAN Rx#:[id number] Rocephin Inj 2,000 MG In NS Inj 200 / 200 100 ML @ 200 mls/hr IV.SIG Q12H TOAN Rx#:[id number] Keppra Inj 500 MG In NS Inj 100 105 / 105 105 / 105 ML @ 400 mls/hr IV.SIG Q12H TOAN Rx#:[id number] Oral 50 / 50 240 / 240 Other: # Incontinent Voids 6 3 Date of Last Bowel Movement 10/23/18 10/23/18 10/23/18 # Incontinent Bowel Movements 0 Narrative: GENERAL: NAD with restrains SKIN: Warm and dry. HEAD: Atraumatic. Normocephalic. EYES: Pupils equal and round. No scleral icterus. No injection or drainage. ENT: No nasal bleeding or discharge. Mucous membranes pink and moist. NECK: Trachea midline. No JVD. CARDIOVASCULAR: Regular rate and rhythm. RESPIRATORY: No accessory muscle use. Clear to auscultation. Breath sounds equal bilaterally. GASTROINTESTINAL: Abdomen soft, non-tender, nondistended. Hepatic and splenic margins not palpable. MUSCULOSKELETAL: Extremities without clubbing, cyanosis, or edema. No obvious deformities. NEUROLOGICAL: Awake and alert. moves all 4 extremities. Normal speech. PSYCHIATRIC: Appropriate mood and affect. - Urinary Catheter Management Indwelling Urethral Catheter Cath placed during this visit: yes, but has since been removed by the nurse Urethral indwelling: Yes Reason for continuing: Decision to DC catheter Insertion date: 10/15/18 Insertion time: 14:00 Removal date: 10/21/18 Removal time: 18:00 Condom Cath placed during this visit: yes Reason for continuing: Not indwelling catheter Insertion date: 10/21/18 Insertion time: 18:00 Results - Labs CBC & Chem 7: 10/25/18 04:23 10/24/18 06:02 Laboratory Results - last 24 hr 10/25/18 04:23 Hgb 9.3 L Microbiology 10/21/18 13:22 Blood - Peripheral Aerobic Blood Culture - Preliminary No growth in 4 days 10/21/18 13:22 Blood - Peripheral Anaerobic Blood Culture - Preliminary No growth in 4 days 10/21/18 13:14 Blood - Peripheral Aerobic Blood Culture - Preliminary No growth in 4 days 10/21/18 13:14 Blood - Peripheral Anaerobic Blood Culture - Preliminary No growth in 4 days Assessment and Plan - Assessment (1) Subdural hematoma, post-traumatic Code(s): S06.5X9A - Traumatic subdural hemorrhage with loss of consciousness of unspecified duration, initial encounter Status: Acute (2) Intracerebral hemorrhage Code(s): I61.9 - Nontraumatic intracerebral hemorrhage, unspecified Status: Acute (3) COPD (chronic obstructive pulmonary disease) Code(s): J44.9 - Chronic obstructive pulmonary disease, unspecified Status: Acute (4) Cavitating mass of lung Code(s): J98.4 - Other disorders of lung Status: Acute (5) Pneumonia Code(s): J18.9 - Pneumonia, unspecified organism Status: Acute (6) GI bleed Code(s): K92.2 - Gastrointestinal hemorrhage, unspecified Status: Acute (7) Anemia Code(s): D64.9 - Anemia, unspecified Status: Acute - Plan 1. O2 2 L N/C PRN 2. CBC,BMP 3. Duoneb nebs qid. 4. Continue antibiotics as ordered. 5. Soft diet as tolerated 6. CXR in am. 7. Await ID on AFB culture 8. Transfer to [facility]
--- NOTE | 2018-10-25 19:20 | XR ---
EXAM DATE: 10/25/2018 7:11 PM EST AGE/SEX: 53 years / Male INDICATIONS: Shortness of breath CLINICAL DATA: This is the patient's subsequent encounter. Patient reports that signs and symptoms h ave been present for 1 week and indicates a pain score of 0/10. MEDICAL/SURGICAL HISTORY: . Hypertension. Chronic obstructive pulmonary disease. Subdural hemor rhage. Subarachnoid hemorrhage. Skull base fracture. None. COMPARISON: [facility] [place] CHEST W CONTRAST, 10/15/2018. . FINDINGS: Persistent left upper lobe cavitary mass with adjacent pleural parenchymal opacities. Overall, this a ppears slightly improved from previous examinations. Redemonstration of diffuse interstitial opacitie s throughout the left lung with scattered ill-defined parenchymal opacities. Right lung is essentiall y clear. Cardiomegaly mediastinal contours are within normal limits. Remainder of the exam is unchang ed. CONCLUSION: 1. Mildly improving left upper lobe cavitary mass with adjacent pleural-parenchymal disease. 2. Persistent diffuse interstitial and scattered airspace opacities throughout the left lung. Electronically signed by: Roger Foss MD Board Certified Radiologist 10/25/2018 7:18 PM MERLYN Pérez
[2018-10-26 04:37] LABS: Baso # (Auto) 0.1 th/mm3 (0.0-0.2); Eos # (Auto) 0.1 th/mm3 (0.0-0.4); Eos % (Auto) 0.7 % (0.0-4.0); Hematocrit 25.4 % (39.0-51.0); Hemoglobin 8.9 gm/dL (13.0-17.0); Lymph # (Auto) 1.6 th/mm3 (1.0-4.8); Lymph % (Auto) 12.1 % (9.0-44.0); Mean Corpuscular HGB Conc 34.8 % (32.0-36.0); Mean Corpuscular Hemoglobin 30.8 pg (27.0-34.0); Mean Corpuscular Volume 88.3 fL (80.0-100.0); Mean Platelet Volume 8.1 fL (7.0-11.0); Mono # (Auto) 0.9 th/mm3 (0.0-0.9); Mono % (Auto) 6.9 % (0.0-8.0); Neut # (Auto) 10.5 th/mm3 (1.8-7.7); Neut % (Auto) 79.3 % (16.0-70.0); Platelet Count 709 th/mm3 (150-450); Red Blood Count 2.88 mil/mm3 (4.50-5.90); Red Cell Distribution Width 15.2 % (11.6-17.2); White Blood Count 13.3 th/mm3 (4.0-11.0)
[2018-10-26 05:03] LABS: Alanine Aminotransferase 23 U/L (12-78); Albumin 1.9 g/dL (3.4-5.0); Alkaline Phosphatase 90 U/L (45-117); Anion Gap 9 meq/L (5-15); Aspartate Aminotransferase 53 U/L (15-37); Blood Urea Nitrogen 7 mg/dL (7-18); Calcium 7.4 mg/dL (8.5-10.1); Carbon Dioxide 26.1 meq/L (21.0-32.0); Chloride 104 meq/L (98-107); Glomerular Filtration Rate Greater Than 89 mL/min (>89); Glucose,Random 98 mg/dL (74-106); Sodium 139 meq/L (136-145); Total Protein 6.6 g/dL (6.4-8.2)
[2018-10-26 05:06] LABS: Potassium 2.6 meq/L (3.5-5.1)
[2018-10-26] MEDS: Potassium Chlor 20 mEq Premix 20 MEQ/100 ML PIGGYBACK IV.SIG SCH ×2 (06:26→08:46)
[2018-10-26] MEDS: Sodium Chloride 0.9% 2 ML Flush BID IV.FLUSH SCH ×2 (08:46→20:28)
[2018-10-26] MEDS: amLODIPine 5 MG Tablet PO SCH (08:46)
--- NOTE | 2018-10-26 12:04 | P.PNIM ---
Subjective Interval history: No acute events noted overnight as per nursing staff. Patient seen and evaluated this morning at bedside and does not appear to have any acute complaints at the moment. Potassium noted to be 2.6 earlier this morning for which supplementation has been ordered. No events noted on telemetry Physical Exam Vital signs: Last Vital Signs Temp 98.9 F 10/26/18 08:00 Pulse 70 10/26/18 08:00 Resp 17 10/26/18 08:00 BP 140/80 10/26/18 08:00 Pulse Ox 99 10/26/18 08:10 Intake & Output 10/24/18 10/25/18 10/26/18 10/27/18 06:59 06:59 06:59 06:59 Intake Total 3052.5 / 3052.5 2700 / 2700 1570 / 1570 200 / 200 Output Total 850 / 850 500 / 500 Balance 2202.5 / 2202.5 2700 / 2700 1070 / 1070 200 / 200 Weight 58.8 kg 58.6 kg 59.1 kg Gen: Responsive. NAD HEENT: EOMI, PERRLA Cardiovascular: S1/S2. Respiratory:poor effort Gastroenterology: Soft, nontender, nondistended, no guarding or rebound appreciated. Positive bowel sounds Extremity: 2+ radial pulse Urinary Catheter Management Indwelling Urethral Catheter: Cath placed during this visit: yes, but has since been removed by the nurse Urethral indwelling: Yes Insertion date: 10/15/18 Insertion time: 14:00 Removal date: 10/21/18 Removal time: 18:00 Condom: Cath placed during this visit: yes Urethral indwelling: Yes Reason for continuing: Acute urinary retention Insertion date: 10/21/18 Insertion time: 18:00 Results Labs CBC & Chem 7: 10/26/18 04:00 10/26/18 04:00 Labs: Microbiology 10/21/18 13:22 Blood - Peripheral Aerobic Blood Culture - Final No growth in 5 days 10/21/18 13:22 Blood - Peripheral Anaerobic Blood Culture - Final No growth in 5 days 10/21/18 13:14 Blood - Peripheral Aerobic Blood Culture - Final No growth in 5 days 10/21/18 13:14 Blood - Peripheral Anaerobic Blood Culture - Final No growth in 5 days Imaging Imaging: Impressions Chest X-Ray 10/25/18 00:00 CONCLUSION: 1. Mildly improving left upper lobe cavitary mass with adjacent pleural- parenchymal disease. 2. Persistent diffuse interstitial and scattered airspace opacities throughout the left lung. Assessment and Plan Plan Patient is a 53-year-old male with past medical history of hypertension, and COPD who presents emergency department with altered mental status found to have traumatic subdural hemorrhage/subarachnoid hemorrhage with skull base fracture, upper gastrointestinal bleed, and left upper lobe cavitary lesion concerning for infectious process. Nephrology: Hypokalemia Aggressively supplemented Repeat BMP Neurology/neurosurgery: Acute metabolic encephalopathy Traumatic subdural hemorrhage/subarachnoid hemorrhage with skull base fracture Evaluated by neurosurgery with bur hole performed. Keppra IV every 12 hours continue neurochecks EEG reviewed via EMR: Moderate encephalopathy Continue ceftriaxone prophylaxis for secondary bacterial infection of lung versus basilar skull fracture. Pulmonary: Left upper lobe cavitary lesion Pulmonary consulted and recommendations appreciated via EMR. Sputum AFB tuberculosis PCR thus far negative DuoNeb therapy 10/25 chest x-ray: Mildly improving left upper lobe cavitary mass with adjacent pleural parenchymal disease. Persistent diffuse interstitial and scattered airspace opacities throughout the left lung bronchial washing acid-fast bacilli noted - 10/21 Bood culture negative 10/21 cytology specimen negative for malignant cells. Reactive bronchial epithelial cell Gastroenterology: Esophagitis EGD performed 10/16- for active bleed at the time. Continue to monitor CBC daily and will recall gastroenterology if needed CODE STATUS: Full code DVT prophylaxis: SCD diet: Thick liquid diet + mechanical soft disposition: Medical surgery unit. Patient will require occupational therapy at rehab Progress Note: Quality VTE Deep Vein Thrombosis/Pulmonary Embolism Present on Admission: No
[2018-10-26 14:28] LABS: Anion Gap 6 meq/L (5-15); Blood Urea Nitrogen 7 mg/dL (7-18); Calcium 7.6 mg/dL (8.5-10.1); Carbon Dioxide 27.6 meq/L (21.0-32.0); Chloride 104 meq/L (98-107); Glomerular Filtration Rate Greater Than 89 mL/min (>89); Glucose,Random 84 mg/dL (74-106); Potassium 3.3 meq/L (3.5-5.1); Sodium 138 meq/L (136-145)
[2018-10-26] MEDS ORDERED: Potassium Chlor 20 mEq Premix 20 MEQ/100 ML PIGGYBACK IV.SIG ONE (14:30)
--- NOTE | 2018-10-26 15:28 | P.PN ---
Subjective Interval history: alert no sob afebrile Physical Exam Vital signs: Vital Signs 10/25/18 16:00 10/25/18 17:00 10/25/18 18:00 Temperature Pulse Rate 79 74 69 Respiratory Rate 21 21 20 Blood Pressure 132/78 133/80 125/76 Pulse Oximetry 99 100 100 10/25/18 19:00 10/25/18 19:53 10/25/18 20:00 Temperature 98.2 F Pulse Rate 76 77 Respiratory Rate 19 19 Blood Pressure 121/72 126/79 Pulse Oximetry 98 99 96 10/25/18 21:00 10/25/18 22:00 10/25/18 23:00 Temperature Pulse Rate 78 71 72 Respiratory Rate 21 20 22 Blood Pressure 144/81 H 148/84 H 138/85 Pulse Oximetry 98 97 97 10/26/18 00:00 10/26/18 00:22 10/26/18 01:00 Temperature 98.2 F 98.2 F Pulse Rate 69 88 58 L Respiratory Rate 22 27 H 19 Blood Pressure 152/79 H 150/82 H Pulse Oximetry 97 86 L 100 10/26/18 02:00 10/26/18 03:00 10/26/18 04:00 Temperature Pulse Rate 80 58 L 86 Respiratory Rate 22 17 21 Blood Pressure 160/85 H 143/85 H 153/79 H Pulse Oximetry 94 L 77 L 10/26/18 05:00 10/26/18 06:00 10/26/18 07:00 Temperature Pulse Rate 80 81 58 L Respiratory Rate 19 19 16 Blood Pressure 153/83 H 146/80 H 134/78 Pulse Oximetry 100 10/26/18 08:00 10/26/18 08:10 10/26/18 09:00 Temperature 98.9 F Pulse Rate 70 59 L Respiratory Rate 17 18 Blood Pressure 140/80 185/82 H Pulse Oximetry 100 99 100 10/26/18 10:00 10/26/18 11:00 10/26/18 12:00 Temperature 98.8 F Pulse Rate 67 55 L 72 Respiratory Rate 18 17 18 Blood Pressure 145/80 H 163/79 H 136/85 Pulse Oximetry 100 100 100 10/26/18 13:00 10/26/18 14:00 Temperature Pulse Rate 68 63 Respiratory Rate 18 18 Blood Pressure 144/81 H 138/74 Pulse Oximetry 100 100 Intake & Output 10/25/18 10/26/18 10/26/18 18:59 06:59 18:59 Intake Total 360 / 360 1210 / 1210 305 / 305 Output Total 0 / 0 500 / 500 Balance 360 / 360 710 / 710 305 / 305 Weight 59.1 kg Intake: IV 1210 / 1210 305 / 305 NS Inj 1,000 ML @ 40 mls/hr IV. 900 / 900 CONT .Q24H [facility] Rx#:[id number] KCl 20 mEq Premix Inj 20 meq In 100 / 100 100 ml @ 50 mls/hr IV.SIG Q2H [facility] Rx#:[id number] Rocephin Inj 2,000 MG In NS Inj 100 / 100 100 / 100 100 ML @ 200 mls/hr IV.SIG Q12H [facility] Rx#:[id number] Keppra Inj 500 MG In NS Inj 100 210 / 210 105 / 105 ML @ 400 mls/hr IV.SIG Q12H [facility] Rx#:[id number] Oral 300 / 300 Tube Feeding 0 / 0 Tube Irrigant 60 / 60 Water Bolus Amount 0 / 0 Output: Urine Amount (Catheter) 500 / 500 Condom 500 / 500 Gastric Drainage 0 / 0 Oral 0 / 0 Other: # Voids 1 # Incontinent Voids 8 2 Date of Last Bowel Movement 10/23/18 10/23/18 # Bowel Movements 2 # Incontinent Bowel Movements 0 Narrative: GENERAL: NAD with restrains SKIN: Warm and dry. HEAD: Atraumatic. Normocephalic. EYES: Pupils equal and round. No scleral icterus. No injection or drainage. ENT: No nasal bleeding or discharge. Mucous membranes pink and moist. NECK: Trachea midline. No JVD. CARDIOVASCULAR: Regular rate and rhythm. RESPIRATORY: No accessory muscle use. Clear to auscultation. Breath sounds equal bilaterally. GASTROINTESTINAL: Abdomen soft, non-tender, nondistended. Hepatic and splenic margins not palpable. MUSCULOSKELETAL: Extremities without clubbing, cyanosis, or edema. No obvious deformities. NEUROLOGICAL: Awake and alert. moves all 4 extremities. Normal speech. PSYCHIATRIC: Appropriate mood and affect. - Urinary Catheter Management Indwelling Urethral Catheter Cath placed during this visit: yes, but has since been removed by the nurse Urethral indwelling: Yes Reason for continuing: Decision to DC catheter Insertion date: 10/15/18 Insertion time: 14:00 Removal date: 10/21/18 Removal time: 18:00 Condom Cath placed during this visit: yes Urethral indwelling: Yes Reason for continuing: Acute urinary retention Insertion date: 10/21/18 Insertion time: 18:00 Results - Labs CBC & Chem 7: 10/26/18 04:00 10/26/18 13:43 Laboratory Results - last 24 hr 10/26/18 10/26/18 10/26/18 04:00 04:00 04:00 WBC 13.3 H RBC 2.88 L Hgb 8.9 L Hct 25.4 L MCV 88.3 MCH 30.8 MCHC 34.8 RDW 15.2 Plt Count 709 H MPV 8.1 Neut % (Auto) 79.3 H Lymph % (Auto) 12.1 Andrews % (Auto) 6.9 Eos % (Auto) 0.7 Baso % (Auto) 1.0 Neut # (Auto) 10.5 H Lymph # (Auto) 1.6 Andrews # (Auto) 0.9 Eos # (Auto) 0.1 Baso # (Auto) 0.1 WBC Differential . Differential Comment Auto diff final Sodium 139 Potassium 2.6 L* Chloride 104 Carbon Dioxide 26.1 Anion Gap 9 BUN 7 Creatinine 0.43 L Estimated GFR Greater than 89 Random Glucose 98 Calcium 7.4 L* Calcium Adj for Albumin 9.1 Magnesium 1.9 Total Bilirubin 0.3 AST 53 H ALT 23 Alkaline Phosphatase 90 Total Protein 6.6 Albumin 1.9 L 10/26/18 13:43 WBC RBC Hgb Hct MCV MCH MCHC RDW Plt Count MPV Neut % (Auto) Lymph % (Auto) Andrews % (Auto) Eos % (Auto) Baso % (Auto) Neut # (Auto) Lymph # (Auto) Andrews # (Auto) Eos # (Auto) Baso # (Auto) WBC Differential Differential Comment Sodium 138 Potassium 3.3 L Chloride 104 Carbon Dioxide 27.6 Anion Gap 6 BUN 7 Creatinine 0.46 L Estimated GFR Greater than 89 Random Glucose 84 Calcium 7.6 L Calcium Adj for Albumin Magnesium Total Bilirubin AST ALT Alkaline Phosphatase Total Protein Albumin Microbiology 10/21/18 13:22 Blood - Peripheral Aerobic Blood Culture - Final No growth in 5 days 10/21/18 13:22 Blood - Peripheral Anaerobic Blood Culture - Final No growth in 5 days 10/21/18 13:14 Blood - Peripheral Aerobic Blood Culture - Final No growth in 5 days 10/21/18 13:14 Blood - Peripheral Anaerobic Blood Culture - Final No growth in 5 days - Imaging Impressions Chest X-Ray 10/25/18 00:00 CONCLUSION: 1. Mildly improving left upper lobe cavitary mass with adjacent pleural- parenchymal disease. 2. Persistent diffuse interstitial and scattered airspace opacities throughout the left lung. Assessment and Plan - Plan impression lung mass infection vs other cultures pending s/p traumatic ic bleed plan antibx per id follow culture results
[2018-10-26] MEDS: Sod Chloride 0.9% Inj 1,000 ML IV.CONT SCH (16:45)
[2018-10-26 18:15] LABS: Anion Gap 7 meq/L (5-15); Blood Urea Nitrogen 6 mg/dL (7-18); Calcium 7.8 mg/dL (8.5-10.1); Carbon Dioxide 25.6 meq/L (21.0-32.0); Chloride 104 meq/L (98-107); Glomerular Filtration Rate Greater Than 89 mL/min (>89); Glucose,Random 86 mg/dL (74-106); Potassium 3.4 meq/L (3.5-5.1); Sodium 137 meq/L (136-145)
[2018-10-26] MEDS: Potassium Chlor 20 mEq Premix 20 MEQ/100 ML PIGGYBACK IV.SIG PRN ×2 (20:33→22:22)
[2018-10-27] MEDS: Sod Chloride 0.9% Inj 1,000 ML IV.CONT SCH ×2 (06:12→18:16)
[2018-10-27 08:11] LABS: Hematocrit 27.7 % (39.0-51.0); Hemoglobin 9.5 gm/dL (13.0-17.0); Mean Corpuscular HGB Conc 34.2 % (32.0-36.0); Mean Corpuscular Hemoglobin 30.3 pg (27.0-34.0); Mean Corpuscular Volume 88.5 fL (80.0-100.0); Mean Platelet Volume 7.7 fL (7.0-11.0); Platelet Count 751 th/mm3 (150-450); Red Blood Count 3.13 mil/mm3 (4.50-5.90); Red Cell Distribution Width 15.3 % (11.6-17.2); White Blood Count 16.3 th/mm3 (4.0-11.0)
[2018-10-27 08:29] LABS: Anion Gap 6 meq/L (5-15); Blood Urea Nitrogen 6 mg/dL (7-18); Calcium 7.9 mg/dL (8.5-10.1); Chloride 105 meq/L (98-107); Glomerular Filtration Rate Greater Than 89 mL/min (>89); Glucose,Random 99 mg/dL (74-106); Magnesium 1.9 mg/dL (1.5-2.5); Potassium 3.5 meq/L (3.5-5.1); Sodium 138 meq/L (136-145)
[2018-10-27] MEDS: amLODIPine 5 MG Tablet PO SCH (08:33)
[2018-10-27] MEDS: Sodium Chloride 0.9% 2 ML Flush BID IV.FLUSH SCH ×2 (08:33→21:13)
[2018-10-27] MEDS: Potassium Chlor 20 mEq Premix 20 MEQ/100 ML PIGGYBACK IV.SIG PRN ×2 (08:42→12:50)
--- NOTE | 2018-10-27 09:14 | P.PNIM ---
Subjective Interval history: Patient seen and examined this morning at the bedside Answers questions today and denied any pain or issues to me appears improved over my initial evaluation yesterday where he did not respond to questions as easily no fever overnight K+ supplementation in progress No diarrhea overnight noted Physical Exam Vital signs: Last Vital Signs Temp 98.7 F 10/27/18 08:00 Pulse 72 10/27/18 08:00 Resp 19 10/27/18 08:00 BP 134/79 10/27/18 08:00 Pulse Ox 100 10/27/18 08:00 Intake & Output 10/25/18 10/26/18 10/27/18 10/28/18 06:59 06:59 06:59 06:59 Intake Total 2700 / 2700 1570 / 1570 3160 / 3160 Output Total 500 / 500 1800 / 1800 Balance 2700 / 2700 1070 / 1070 1360 / 1360 Weight 58.6 kg 59.1 kg 57.9 kg gen: NAD heent: eomi cvs: s1/s2 resp: clear anteriorly gi: soft, non tender, non distended, no guarding ext: no edema or calf tenderness Urinary Catheter Management Indwelling Urethral Catheter: Cath placed during this visit: yes, but has since been removed by the nurse Urethral indwelling: Yes Insertion date: 10/15/18 Insertion time: 14:00 Removal date: 10/21/18 Removal time: 18:00 Condom: Cath placed during this visit: yes Urethral indwelling: Yes Reason for continuing: Acute urinary retention Insertion date: 10/21/18 Insertion time: 18:00 Results Labs CBC & Chem 7: 10/28/18 07:56 10/28/18 06:15 Labs: Microbiology 10/21/18 13:22 Blood - Peripheral Aerobic Blood Culture - Final No growth in 5 days 10/21/18 13:22 Blood - Peripheral Anaerobic Blood Culture - Final No growth in 5 days 10/21/18 13:14 Blood - Peripheral Aerobic Blood Culture - Final No growth in 5 days 10/21/18 13:14 Blood - Peripheral Anaerobic Blood Culture - Final No growth in 5 days Assessment and Plan Plan Patient is a 53-year-old male with past medical history of hypertension, and COPD who presents emergency department with altered mental status found to have traumatic subdural hemorrhage/subarachnoid hemorrhage with skull base fracture, upper gastrointestinal bleed, and left upper lobe cavitary lesion concerning for infectious process. Nephrology: Hypokalemia Aggressively supplemented now currently 3.5 Repeat BMP in am - suspect that increased in blood cell production ( platelets) could also cause hypokalemia. - check aldosterone level as well - Previous ABG with alkalosis which also could explain hypoKalemia as well. Neurology/neurosurgery: Acute metabolic encephalopathy Traumatic subdural hemorrhage/subarachnoid hemorrhage with skull base fracture Evaluated by neurosurgery with bur hole performed. Keppra IV every 12 hours continue neurochecks EEG reviewed via EMR: Moderate encephalopathy Continue ceftriaxone prophylaxis for secondary bacterial infection of lung versus basilar skull fracture. Pulmonary: Left upper lobe cavitary lesion Pulmonary consulted and recommendations appreciated via EMR. Sputum AFB tuberculosis PCR thus far negative DuoNeb therapy 10/25 chest x-ray: Mildly improving left upper lobe cavitary mass with adjacent pleural parenchymal disease. Persistent diffuse interstitial and scattered airspace opacities throughout the left lung bronchial washing acid-fast bacilli noted - 10/21 Bood culture negative 10/21 cytology specimen negative for malignant cells. Reactive bronchial epithelial cell Gastroenterology: Esophagitis EGD performed 10/16- for active bleed at the time. Continue to monitor CBC daily and will recall gastroenterology if needed CODE STATUS: Full code DVT prophylaxis: SCD diet: Thick liquid diet + mechanical soft disposition: Medical surgery unit. Patient will require occupational therapy at rehab Progress Note: Quality VTE Deep Vein Thrombosis/Pulmonary Embolism Present on Admission: No
[2018-10-27] MEDS ORDERED: Mag Sulf 1 gm/100 ml Premix 100 ML IV.SIG ONE (09:30)
--- NOTE | 2018-10-27 16:50 | P.PN ---
Subjective Interval history: ALERT NAD Physical Exam Vital signs: Vital Signs 10/26/18 17:00 10/26/18 18:00 10/26/18 19:00 Temperature Pulse Rate 86 80 81 Respiratory Rate 19 19 23 Blood Pressure 146/89 H 151/85 H 131/62 Pulse Oximetry 97 100 100 10/26/18 20:00 10/26/18 20:14 10/26/18 21:00 Temperature 98.4 F Pulse Rate 78 85 Respiratory Rate 21 22 Blood Pressure 136/73 150/76 H Pulse Oximetry 100 95 100 10/26/18 22:00 10/26/18 23:00 10/27/18 00:00 Temperature 98.4 F Pulse Rate 92 H 84 62 Respiratory Rate 20 22 20 Blood Pressure 132/74 144/82 H 138/69 Pulse Oximetry 100 100 97 10/27/18 00:39 10/27/18 01:00 10/27/18 02:00 Temperature Pulse Rate 69 85 Respiratory Rate 21 20 Blood Pressure 122/76 134/78 Pulse Oximetry 97 100 98 10/27/18 03:00 10/27/18 04:00 10/27/18 05:00 Temperature 98.4 F Pulse Rate 58 L 59 L 60 Respiratory Rate 24 24 18 Blood Pressure 148/72 H 133/72 117/64 Pulse Oximetry 95 94 L 99 10/27/18 06:00 10/27/18 07:00 10/27/18 07:16 Temperature Pulse Rate 57 L 57 L Respiratory Rate 16 16 Blood Pressure 148/78 H 132/76 Pulse Oximetry 100 100 100 10/27/18 08:00 10/27/18 09:00 10/27/18 10:00 Temperature 98.7 F Pulse Rate 72 71 61 Respiratory Rate 19 27 H 18 Blood Pressure 134/79 126/72 112/65 Pulse Oximetry 100 100 100 10/27/18 11:00 10/27/18 12:00 Temperature 98.8 F Pulse Rate 56 L 59 L Respiratory Rate 15 15 Blood Pressure 131/75 100/59 L Pulse Oximetry 100 100 Intake & Output 10/26/18 10/27/18 10/27/18 18:59 06:59 18:59 Intake Total 1755 / 1755 1405 / 1405 305 / 305 Output Total 900 / 900 900 / 900 Balance 855 / 855 505 / 505 305 / 305 Weight 57.9 kg Intake: IV 1605 / 1605 1405 / 1405 305 / 305 NS Inj 1,000 ML @ 40 mls/hr IV. 1000 / 1000 1000 / 1000 CONT .Q24H [facility] Rx#:[id number] Magnesium Sulfate 1 gm/D5W 100 100 / 100 ml Premix 100 ML @ 100 mls/hr IV.SIG ONCE ONE Rx#:[id number] KCl 20 mEq Premix Inj 20 meq In 300 / 300 200 / 200 100 / 100 100 ml @ 50 mls/hr IV.SIG Q2H [facility] Rx#:[id number] Rocephin Inj 2,000 MG In NS Inj 200 / 200 100 / 100 100 ML @ 200 mls/hr IV.SIG Q12H [facility] Rx#:[id number] Keppra Inj 500 MG In NS Inj 100 105 / 105 105 / 105 105 / 105 ML @ 400 mls/hr IV.SIG Q12H [facility] Rx#:[id number] Oral 150 / 150 Tube Feeding 0 / 0 Tube Irrigant 0 / 0 Water Bolus Amount 0 / 0 Output: Urine Amount (Catheter) 900 / 900 900 / 900 Condom 900 / 900 900 / 900 Gastric Drainage 0 / 0 Oral 0 / 0 Other: # Voids 1 # Incontinent Voids 2 Date of Last Bowel Movement 10/26/18 10/26/18 # Bowel Movements 1 # Incontinent Bowel Movements 1 Narrative: GENERAL: NAD with restrains SKIN: Warm and dry. HEAD: Atraumatic. Normocephalic. EYES: Pupils equal and round. No scleral icterus. No injection or drainage. ENT: No nasal bleeding or discharge. Mucous membranes pink and moist. NECK: Trachea midline. No JVD. CARDIOVASCULAR: Regular rate and rhythm. RESPIRATORY: No accessory muscle use. Clear to auscultation. Breath sounds equal bilaterally. GASTROINTESTINAL: Abdomen soft, non-tender, nondistended. Hepatic and splenic margins not palpable. MUSCULOSKELETAL: Extremities without clubbing, cyanosis, or edema. No obvious deformities. NEUROLOGICAL: Awake and alert. moves all 4 extremities. Normal speech. PSYCHIATRIC: Appropriate mood and affect. - Urinary Catheter Management Indwelling Urethral Catheter Cath placed during this visit: yes, but has since been removed by the nurse Urethral indwelling: Yes Reason for continuing: Decision to DC catheter Insertion date: 10/15/18 Insertion time: 14:00 Removal date: 10/21/18 Removal time: 18:00 Condom Cath placed during this visit: yes Urethral indwelling: Yes Reason for continuing: Acute urinary retention Insertion date: 10/21/18 Insertion time: 18:00 Results - Labs CBC & Chem 7: 10/27/18 07:55 10/27/18 07:55 Laboratory Results - last 24 hr 10/26/18 10/27/18 10/27/18 17:43 07:55 07:55 WBC 16.3 H RBC 3.13 L Hgb 9.5 L Hct 27.7 L MCV 88.5 MCH 30.3 MCHC 34.2 RDW 15.3 Plt Count 751 H MPV 7.7 Sodium 137 138 Potassium 3.4 L 3.5 Chloride 104 105 Carbon Dioxide 25.6 27.0 Anion Gap 7 6 BUN 6 L 6 L Creatinine 0.47 L 0.47 L Estimated GFR Greater than 89 Greater than 89 Random Glucose 86 99 Calcium 7.8 L 7.9 L Magnesium 1.9 Assessment and Plan - Plan impression lung mass infection vs other cultures pending s/p traumatic ic bleed plan antibx per id follow culture results
[2018-10-28] MEDS: Sod Chloride 0.9% Inj 1,000 ML IV.CONT SCH ×2 (04:06→17:18)
[2018-10-28 07:17] LABS: Anion Gap 8 meq/L (5-15); Blood Urea Nitrogen 7 mg/dL (7-18); Chloride 105 meq/L (98-107); Glomerular Filtration Rate Greater Than 89 mL/min (>89); Glucose,Random 92 mg/dL (74-106); Potassium 3.9 meq/L (3.5-5.1); Sodium 139 meq/L (136-145)
[2018-10-28 08:14] LABS: Hematocrit 26.3 % (39.0-51.0); Hemoglobin 8.7 gm/dL (13.0-17.0); Mean Corpuscular Hemoglobin 29.6 pg (27.0-34.0); Mean Corpuscular Volume 89.7 fL (80.0-100.0); Mean Platelet Volume 7.9 fL (7.0-11.0); Platelet Count 759 th/mm3 (150-450); Red Blood Count 2.93 mil/mm3 (4.50-5.90); Red Cell Distribution Width 15.1 % (11.6-17.2); White Blood Count 10.5 th/mm3 (4.0-11.0)
[2018-10-28 08:19] LABS: INR 1.1 Ratio; Prothrombin Time 11.3 sec (9.8-11.6)
[2018-10-28] MEDS: Sodium Chloride 0.9% 2 ML Flush BID IV.FLUSH SCH ×2 (09:34→22:43)
[2018-10-28] MEDS: amLODIPine 5 MG Tablet PO SCH (09:34)
--- NOTE | 2018-10-28 12:56 | P.DIET ---
Nutritional Evaluation Type of nutrition evaluation: follow-up Nutrition consult regarding: Tube Feeding (TFing d/c'ed) Subjective Subjective Comments: Eating 50-100%. Objective - Diagnosis GI bleed, anemia, ICH - Objective % IBW: 86 (IBW = 148lb) Body Weight Used for Calculations: Actual Energy Needs - Lower Range (kCal/kg): 30 Energy Needs - Upper Range (kCal/kg): 35 Lower Limit kCal/kg (kCals): 1,734 Upper Limit kCal/kg (kCals): 2,023 Lower Limit Protein Factor (Grams per Kg): 1.2 Upper Limit Protein Factor (Grams per Kg): 1.4 Lower Protein Needs (Protein): 69 Upper Protein Needs (Protein): 81 Dietitian Reviewed in Medical Record: Current diet, Curent medications, Intake & Output, Labs, Medical history, Tube feeding Diet Order: Cardiac, Mechanical Soft, chopped meat, nectar thickened liquids Speech Therapy Recommendations: Yes Objective Comments: PMH: HTN, s/p ORIF fx, traumatic amputation of toe Assessment Assessment: Pt extubated, TF d/c'ed and diet advanced. PO intake is fair to good at this time. Pt remains at high nutrition risk with a BMI of 19.3. Will send Ensure Enlive bid; each 8 oz serving provides 350 kcals and [address] following. Recommendations: 1. Diet per ST 2. Ensure Enlive bid Dietitian to Monitor: Lab values, Supplement acceptance, Intake & Output, Diet tolerance, Weight change, PO Intake, Diet advancement, Swallow recommendations, Medical course
--- NOTE | 2018-10-28 15:30 | P.PNIM ---
Subjective Interval history: Pt seen and examined Pt note reviewed and patient appears confused on my examination today patient knows name but not location or president appears he could be experiencing delirium form day-night disturbances episode of agitation this morning for which nursing needed to temporarily restrain him Physical Exam Vital signs: Last Vital Signs Temp 99 F 10/28/18 05:00 Pulse 70 10/28/18 09:00 Resp 20 10/28/18 09:00 BP 121/68 10/28/18 09:00 Pulse Ox 100 10/28/18 09:47 Intake & Output 10/26/18 10/27/18 10/28/18 10/29/18 06:59 06:59 06:59 06:59 Intake Total 1570 / 1570 3160 / 3160 2110 / 2110 Output Total 500 / 500 1800 / 1800 1000 / 1000 Balance 1070 / 1070 1360 / 1360 1110 / 1110 Weight 59.1 kg 57.9 kg 56 kg gen: nad resp: left lobe crackle noted. RIGHT lobe appears clear. patient took large breath making it more clear. cvs: s1/s2, rrr gi: soft, non tender, non distended, no guarding ext: 2+ radial pulse. no edema neuro: + delerium Urinary Catheter Management Indwelling Urethral Catheter: Cath placed during this visit: yes, but has since been removed by the nurse Urethral indwelling: Yes Insertion date: 10/15/18 Insertion time: 14:00 Removal date: 10/21/18 Removal time: 18:00 Condom: Cath placed during this visit: yes Urethral indwelling: Yes Reason for continuing: Not indwelling catheter Insertion date: 10/21/18 Insertion time: 18:00 Results Labs CBC & Chem 7: 10/28/18 07:56 10/28/18 06:15 Labs: Microbiology 10/21/18 12:40 Bronchial Brushings - Left Upper Lobe Fungal Smear - Final 10/21/18 12:40 Bronchial Brushings - Left Upper Lobe Fungal Culture - Preliminary No growth in 1 week 10/21/18 12:40 Bronchial Brushings - Left Upper Lobe Acid Fast Bacilli Smear - Final No acid fast bacilli seen 10/21/18 12:40 Bronchial Brushings - Left Upper Lobe Mycobacterial Culture - Preliminary No growth in 1 week 10/21/18 12:40 Bronchial Washings - Left Upper Lobe Fungal Smear - Final No fungal elements seen 10/21/18 12:40 Bronchial Washings - Left Upper Lobe Fungal Culture - Preliminary No growth in 1 week 10/21/18 12:40 Bronchial Washings - Left Upper Lobe Acid Fast Bacilli Smear - Final Acid Fast Bacilli Seen 10/21/18 12:40 Bronchial Washings - Left Upper Lobe Mycobacterial Culture - Preliminary No growth in 1 week Assessment and Plan Plan Patient is a 53-year-old male with past medical history of hypertension, and COPD who presents emergency department with altered mental status found to have traumatic subdural hemorrhage/subarachnoid hemorrhage with skull base fracture, upper gastrointestinal bleed, and left upper lobe cavitary lesion concerning for infectious process. Nephrology: Hypokalemia - resolved - aldosterone level - pending Psychiatry: delirium - behavioral re-direction 1st line - if needed, haldol prn is ordered. hasnt been used recently - suspect delirium may be from prolonged hospitalization (?ICU delirium) in setting of neurologic compromise from SDH Neurology/neurosurgery: Acute metabolic encephalopathy Traumatic subdural hemorrhage/subarachnoid hemorrhage with skull base fracture Evaluated by neurosurgery with bur hole performed. Keppra IV every 12 hours continue neurochecks EEG reviewed via EMR: Moderate encephalopathy Continue ceftriaxone prophylaxis for secondary bacterial infection of lung versus basilar skull fracture. Will f/u ID when to discontinue or optimal duration Pulmonary: Left upper lobe cavitary lesion Pulmonary consulted and recommendations appreciated via EMR. Sputum AFB tuberculosis PCR thus far negative DuoNeb therapy 10/25 chest x-ray: Mildly improving left upper lobe cavitary mass with adjacent pleural parenchymal disease. Persistent diffuse interstitial and scattered airspace opacities throughout the left lung bronchial washing acid-fast bacilli noted - 10/21 Blood culture negative 10/21 cytology specimen negative for malignant cells. Reactive bronchial epithelial cell -AFB IS GROWING - AWAITING ID. This was confirmed via conversation with ID team 10/28. For now will keep all precautions and wait for identification. Gastroenterology: Esophagitis EGD performed 10/16- for active bleed at the time. Continue to monitor CBC daily and will recall gastroenterology if needed CODE STATUS: Full code DVT prophylaxis: SCD diet: Thick liquid diet + mechanical soft disposition: Medical surgery unit. Patient will require occupational therapy at rehab Progress Note: Quality VTE Deep Vein Thrombosis/Pulmonary Embolism Present on Admission: No
--- NOTE | 2018-10-28 19:49 | P.PN ---
Subjective Interval history: Confused and on O2 2 L. No Fever. Output was good. Taking a diet. Physical Exam Vital signs: Vital Signs 10/27/18 20:00 10/27/18 21:00 10/27/18 22:00 Temperature 98.7 F Pulse Rate 80 81 64 Respiratory Rate 20 21 18 Blood Pressure 116/75 127/86 113/60 Pulse Oximetry 100 100 100 10/27/18 23:00 10/28/18 00:00 10/28/18 01:00 Temperature 99.3 F Pulse Rate 84 79 78 Respiratory Rate 19 21 19 Blood Pressure 137/77 129/78 137/78 Pulse Oximetry 100 100 100 10/28/18 02:00 10/28/18 03:00 10/28/18 04:00 Temperature Pulse Rate 82 77 82 Respiratory Rate 23 18 17 Blood Pressure 151/88 H 145/79 H 145/81 H Pulse Oximetry 100 100 100 10/28/18 05:00 10/28/18 06:00 10/28/18 07:00 Temperature 99 F Pulse Rate 76 56 L 52 L Respiratory Rate 19 16 20 Blood Pressure 130/77 148/70 H 128/67 Pulse Oximetry 92 L 100 100 10/28/18 08:00 10/28/18 09:00 10/28/18 09:47 Temperature Pulse Rate 73 70 Respiratory Rate 18 20 Blood Pressure 121/69 121/68 Pulse Oximetry 100 99 100 10/28/18 10:00 10/28/18 11:00 10/28/18 12:00 Temperature 98.0 F Pulse Rate 74 91 H 71 Respiratory Rate 17 25 H 18 Blood Pressure 118/65 126/86 104/64 Pulse Oximetry 99 99 71 L 10/28/18 13:00 10/28/18 14:00 10/28/18 15:00 Temperature Pulse Rate 93 H 64 86 Respiratory Rate 29 H 18 26 H Blood Pressure 121/81 133/75 Pulse Oximetry 10/28/18 16:00 10/28/18 17:00 Temperature Pulse Rate 74 89 Respiratory Rate 21 25 H Blood Pressure 133/77 168/83 H Pulse Oximetry Intake & Output 10/28/18 10/28/18 10/29/18 06:59 18:59 06:59 Intake Total 1245 / 1245 Balance 1245 / 1245 Weight 56 kg Intake: IV 1005 / 1005 NS Inj 1,000 ML @ 40 mls/hr IV. 800 / 800 CONT .Q24H TOAN Rx#:[id number] Rocephin Inj 2,000 MG In NS Inj 100 / 100 100 ML @ 200 mls/hr IV.SIG Q12H TOAN Rx#:[id number] Keppra Inj 500 MG In NS Inj 100 105 / 105 ML @ 400 mls/hr IV.SIG Q12H TOAN Rx#:[id number] Oral 240 / 240 Other: # Incontinent Voids 4 Date of Last Bowel Movement 10/26/18 10/26/18 Narrative: GENERAL: NAD and calm with restraints SKIN: Warm and dry. HEAD: Atraumatic. Normocephalic. EYES: Pupils equal and round. No scleral icterus. No injection or drainage. ENT: No nasal bleeding or discharge. Mucous membranes pink and moist. NECK: Trachea midline. No JVD. CARDIOVASCULAR: Regular rate and rhythm. RESPIRATORY: No accessory muscle use. Few wheezes. Breath sounds equal bilaterally. GASTROINTESTINAL: Abdomen soft, non-tender, nondistended. Hepatic and splenic margins not palpable. MUSCULOSKELETAL: Extremities without clubbing, cyanosis, or edema. No obvious deformities. NEUROLOGICAL: Awake and alert. moves all 4 extremities. Normal speech. PSYCHIATRIC: Appropriate mood and affect. - Urinary Catheter Management Indwelling Urethral Catheter Cath placed during this visit: yes, but has since been removed by the nurse Urethral indwelling: Yes Reason for continuing: Decision to DC catheter Insertion date: 10/15/18 Insertion time: 14:00 Removal date: 10/21/18 Removal time: 18:00 Condom Cath placed during this visit: yes Urethral indwelling: Yes Reason for continuing: Not indwelling catheter Insertion date: 10/21/18 Insertion time: 18:00 Results - Labs CBC & Chem 7: 10/28/18 07:56 10/28/18 06:15 Laboratory Results - last 24 hr 10/28/18 10/28/18 10/28/18 06:15 07:56 07:56 WBC 10.5 RBC 2.93 L Hgb 8.7 L Hct 26.3 L MCV 89.7 MCH 29.6 MCHC 33.0 RDW 15.1 Plt Count 759 H MPV 7.9 PT 11.3 INR 1.1 Sodium 139 Potassium 3.9 Chloride 105 Carbon Dioxide 26.0 Anion Gap 8 BUN 7 Creatinine 0.47 L Estimated GFR Greater than 89 Random Glucose 92 Calcium 8.0 L Magnesium 2.0 Microbiology 10/21/18 12:40 Bronchial Brushings - Left Upper Lobe Fungal Smear - Final 10/21/18 12:40 Bronchial Brushings - Left Upper Lobe Fungal Culture - Preliminary No growth in 1 week 10/21/18 12:40 Bronchial Brushings - Left Upper Lobe Acid Fast Bacilli Smear - Final No acid fast bacilli seen 10/21/18 12:40 Bronchial Brushings - Left Upper Lobe Mycobacterial Culture - Preliminary No growth in 1 week 10/21/18 12:40 Bronchial Washings - Left Upper Lobe Fungal Smear - Final No fungal elements seen 10/21/18 12:40 Bronchial Washings - Left Upper Lobe Fungal Culture - Preliminary No growth in 1 week 10/21/18 12:40 Bronchial Washings - Left Upper Lobe Acid Fast Bacilli Smear - Final Acid Fast Bacilli Seen 10/21/18 12:40 Bronchial Washings - Left Upper Lobe Mycobacterial Culture - Preliminary No growth in 1 week Assessment and Plan - Assessment (1) Subdural hematoma, post-traumatic Code(s): S06.5X9A - Traumatic subdural hemorrhage with loss of consciousness of unspecified duration, initial encounter Status: Acute (2) Intracerebral hemorrhage Code(s): I61.9 - Nontraumatic intracerebral hemorrhage, unspecified Status: Acute (3) COPD (chronic obstructive pulmonary disease) Code(s): J44.9 - Chronic obstructive pulmonary disease, unspecified Status: Acute (4) Cavitating mass of lung Code(s): J98.4 - Other disorders of lung Status: Acute (5) Pneumonia Code(s): J18.9 - Pneumonia, unspecified organism Status: Acute (6) GI bleed Code(s): K92.2 - Gastrointestinal hemorrhage, unspecified Status: Acute (7) Anemia Code(s): D64.9 - Anemia, unspecified Status: Acute - Plan 1. O2 2 L N/C PRN 2. CBC,BMP in am. 3. Duoneb nebs qid. 4. Continue antibiotics as ordered. 5. Soft diet as tolerated 6. PFT if he cooperates. 7. Await ID on AFB culture 8. Transfer to [facility]
[2018-10-29] MEDS: Sodium Chloride 0.9% 2 ML Flush BID IV.FLUSH SCH ×2 (08:15→22:55)
[2018-10-29] MEDS: amLODIPine 5 MG Tablet PO SCH (08:15)
--- NOTE | 2018-10-29 11:53 | P.PNIM ---
Subjective Interval history: Cute distress today. Patient remains confused. He is refusing to take p.o. treatments, will not take Norvasc this morning. Physical Exam Vital signs: Last Vital Signs Temp 98.0 F 10/29/18 08:00 Pulse 90 10/29/18 09:00 Resp 20 10/29/18 09:00 BP 132/77 10/29/18 08:28 Pulse Ox 93 L 10/29/18 09:00 Intake & Output 10/27/18 10/28/18 10/29/18 10/30/18 06:59 06:59 06:59 06:59 Intake Total 3160 / 3160 2110 / 2110 610 / 610 1205 / 1205 Output Total 1800 / 1800 1000 / 1000 150 / 150 Balance 1360 / 1360 1110 / 1110 460 / 460 1205 / 1205 Weight 57.9 kg 56 kg 56.7 kg Narrative: GENERAL: NAD, A&Ox1 HEAD: Normocephalic. NECK: Supple, trachea midline. No lymphadenopathy. EYES: No scleral icterus. No injection or drainage. CARDIOVASCULAR: Regular rate and rhythm without murmurs, gallops, or rubs. RESPIRATORY: Breath sounds equal bilaterally. No accessory muscle use. GASTROINTESTINAL: Abdomen soft, non-tender, nondistended. MUSCULOSKELETAL: No cyanosis, or edema. SKIN: Warm and dry. NEURO: No focal neurological deficits. Urinary Catheter Management Indwelling Urethral Catheter: Cath placed during this visit: yes, but has since been removed by the nurse Urethral indwelling: Yes Insertion date: 10/15/18 Insertion time: 14:00 Removal date: 10/21/18 Removal time: 18:00 Condom: Cath placed during this visit: yes Urethral indwelling: Yes Reason for continuing: Decision to DC catheter Insertion date: 10/21/18 Insertion time: 18:00 Results Labs CBC & Chem 7: 10/28/18 07:56 10/28/18 06:15 Labs: Microbiology 10/21/18 12:40 Bronchial Brushings - Left Upper Lobe Fungal Smear - Final 10/21/18 12:40 Bronchial Brushings - Left Upper Lobe Fungal Culture - Preliminary No growth in 1 week 10/21/18 12:40 Bronchial Brushings - Left Upper Lobe Acid Fast Bacilli Smear - Final No acid fast bacilli seen 10/21/18 12:40 Bronchial Brushings - Left Upper Lobe Mycobacterial Culture - Preliminary No growth in 1 week 10/21/18 12:40 Bronchial Washings - Left Upper Lobe Fungal Smear - Final No fungal elements seen 10/21/18 12:40 Bronchial Washings - Left Upper Lobe Fungal Culture - Preliminary No growth in 1 week 10/21/18 12:40 Bronchial Washings - Left Upper Lobe Acid Fast Bacilli Smear - Final Acid Fast Bacilli Seen 10/21/18 12:40 Bronchial Washings - Left Upper Lobe Mycobacterial Culture - Preliminary No growth in 1 week Assessment and Plan Plan 53-year-old male with past medical history of hypertension, and COPD who presents emergency department with altered mental status found to have traumatic subdural hemorrhage/subarachnoid hemorrhage with skull base fracture, upper gastrointestinal bleed, and left upper lobe cavitary lesion concerning for infectious process. Hypokalemia Resolved Follow-up aldosterone level Chronic encephalopathy Delirium Likely related to brain bleed PRN Haldol Restraints as needed Transfer out of ICU Subdural hemorrhage Subarachnoid hemorrhage Status post bur hole intervention Continue Keppra Continue neurochecks Moderate encephalopathy on EEG Neurology following Continue ceftriaxone for prophylaxis Upper left lung cavitary lesion Follow AFB cultures Isolation ID following Esophagitis Follow CBC DVT prophylaxis SCDs Progress Note: Quality VTE Deep Vein Thrombosis/Pulmonary Embolism Present on Admission: No
[2018-10-29] MEDS: Sod Chloride 0.9% Inj 1,000 ML IV.CONT SCH (17:13)
[2018-10-30] MEDS: Sodium Chloride 0.9% 2 ML Flush BID IV.FLUSH SCH ×2 (09:45→21:03)
--- NOTE | 2018-10-30 11:30 | P.PNIM ---
Subjective Interval history: No significant change in encephalopathy. Patient does not appear as combative. No complaints of pain. Physical Exam Vital signs: Last Vital Signs Temp 97.7 F 10/30/18 08:00 Pulse 59 L 10/30/18 08:13 Resp 17 10/30/18 08:13 BP 163/82 H 10/30/18 08:00 Pulse Ox 96 10/30/18 08:13 Intake & Output 10/28/18 10/29/18 10/30/18 10/31/18 06:59 06:59 06:59 06:59 Intake Total 2110 / 2110 610 / 610 1770 / 1770 100 / 100 Output Total 1000 / 1000 150 / 150 1700 / 1700 Balance 1110 / 1110 460 / 460 70 / 70 100 / 100 Weight 56 kg 56.7 kg 52.4 kg Narrative: GENERAL: NAD, A&Ox1 HEAD: Normocephalic. NECK: Supple, trachea midline. No lymphadenopathy. EYES: No scleral icterus. No injection or drainage. CARDIOVASCULAR: Regular rate and rhythm without murmurs, gallops, or rubs. RESPIRATORY: Breath sounds equal bilaterally. No accessory muscle use. GASTROINTESTINAL: Abdomen soft, non-tender, nondistended. MUSCULOSKELETAL: No cyanosis, or edema. SKIN: Warm and dry. NEURO: No focal neurological deficits. Urinary Catheter Management Indwelling Urethral Catheter: Cath placed during this visit: yes, but has since been removed by the nurse Urethral indwelling: Yes Insertion date: 10/15/18 Insertion time: 14:00 Removal date: 10/21/18 Removal time: 18:00 Condom: Cath placed during this visit: yes Urethral indwelling: Yes Reason for continuing: Not indwelling catheter Insertion date: 10/21/18 Insertion time: 18:00 Results Labs CBC & Chem 7: 10/28/18 07:56 10/28/18 06:15 Assessment and Plan Plan 53-year-old male with past medical history of hypertension, and COPD who presents emergency department with altered mental status found to have traumatic subdural hemorrhage/subarachnoid hemorrhage with skull base fracture, upper gastrointestinal bleed, and left upper lobe cavitary lesion concerning for infectious process. Trial wean of restraints to soft restraints upper limbs today and lower limb restraints will be removed to see if patient tolerates. Hypokalemia Resolved Follow-up aldosterone level Chronic encephalopathy Delirium Likely related to brain bleed PRN Haldol Restraints as needed Transfer out of ICU Subdural hemorrhage Subarachnoid hemorrhage Status post bur hole intervention Continue Keppra Continue neurochecks Moderate encephalopathy on EEG Neurology following Continue ceftriaxone for prophylaxis Upper left lung cavitary lesion Follow AFB cultures Isolation ID following Esophagitis Follow CBC DVT prophylaxis SCDs Progress Note: Quality VTE Deep Vein Thrombosis/Pulmonary Embolism Present on Admission: No
[2018-10-30] MEDS: Sod Chloride 0.9% Inj 1,000 ML IV.CONT SCH (16:30)
--- NOTE | 2018-10-30 19:00 | P.PN ---
Subjective Interval history: Taking his diet better. Off O2 sat 96. No cough but has wheezing. Physical Exam Vital signs: Vital Signs 10/29/18 20:00 10/29/18 21:30 10/29/18 23:22 Temperature 98.2 F Pulse Rate 77 Respiratory Rate 22 Blood Pressure 156/79 H Pulse Oximetry 98 98 99 10/30/18 00:00 10/30/18 04:00 10/30/18 08:00 Temperature 98.9 F 97.5 F L 97.7 F Pulse Rate 72 66 63 Respiratory Rate 20 20 20 Blood Pressure 144/73 H 140/76 163/82 H Pulse Oximetry 98 97 98 10/30/18 08:13 10/30/18 12:00 10/30/18 15:37 Temperature 97.8 F 98.5 F Pulse Rate 59 L 63 70 Respiratory Rate 17 20 20 Blood Pressure 139/75 136/81 Pulse Oximetry 96 98 97 Intake & Output 10/29/18 10/30/18 10/30/18 18:59 06:59 18:59 Intake Total 1565 / 1565 205 / 205 1445 / 1445 Output Total 1000 / 1000 700 / 700 750 / 750 Balance 565 / 565 -495 / -495 695 / 695 Weight 52.4 kg Intake: IV 1205 / 1205 205 / 205 1205 / 1205 NS Inj 1,000 ML @ 40 mls/hr IV. 1000 / 1000 1000 / 1000 CONT .Q24H TOAN Rx#:[id number] Rocephin Inj 2,000 MG In NS Inj 100 / 100 100 / 100 100 / 100 100 ML @ 200 mls/hr IV.SIG Q12H TOAN Rx#:[id number] Keppra Inj 500 MG In NS Inj 100 105 / 105 105 / 105 105 / 105 ML @ 400 mls/hr IV.SIG Q12H TOAN Rx#:[id number] Oral 360 / 360 240 / 240 Output: Urine 500 / 500 700 / 700 Urine Amount (Catheter) 500 / 500 750 / 750 Condom 500 / 500 750 / 750 Other: Date of Last Bowel Movement 10/29/18 10/30/18 10/30/18 # Bowel Movements 1 1 2 # Incontinent Bowel Movements 1 Narrative: GENERAL: NAD, A&Ox1 HEAD: Normocephalic. NECK: Supple, trachea midline. No lymphadenopathy. EYES: No scleral icterus. No injection or drainage. CARDIOVASCULAR: Regular rate and rhythm without murmurs, gallops, or rubs. * RESPIRATORY: Breath sounds equal bilaterally.Bilateral wheeze. No accessory muscle use. GASTROINTESTINAL: Abdomen soft, non-tender, nondistended. MUSCULOSKELETAL: No cyanosis, or edema. SKIN: Warm and dry. NEURO: No focal neurological deficits. - Urinary Catheter Management Indwelling Urethral Catheter Cath placed during this visit: yes, but has since been removed by the nurse Urethral indwelling: Yes Reason for continuing: Decision to DC catheter Insertion date: 10/15/18 Insertion time: 14:00 Removal date: 10/21/18 Removal time: 18:00 Condom Cath placed during this visit: yes Urethral indwelling: Yes Reason for continuing: Not indwelling catheter Insertion date: 10/21/18 Insertion time: 18:00 Results - Labs CBC & Chem 7: 10/28/18 07:56 10/28/18 06:15 Laboratory Results - last 24 hr 10/28/18 07:56 Aldosterone Less than 1.0 Assessment and Plan - Assessment (1) Subdural hematoma, post-traumatic Code(s): S06.5X9A - Traumatic subdural hemorrhage with loss of consciousness of unspecified duration, initial encounter Status: Acute (2) Intracerebral hemorrhage Code(s): I61.9 - Nontraumatic intracerebral hemorrhage, unspecified Status: Acute (3) COPD (chronic obstructive pulmonary disease) Code(s): J44.9 - Chronic obstructive pulmonary disease, unspecified Status: Acute (4) Cavitating mass of lung Code(s): J98.4 - Other disorders of lung Status: Acute (5) Pneumonia Code(s): J18.9 - Pneumonia, unspecified organism Status: Acute (6) GI bleed Code(s): K92.2 - Gastrointestinal hemorrhage, unspecified Status: Acute (7) Anemia Code(s): D64.9 - Anemia, unspecified Status: Acute - Plan 1. D/C O2 2. CXR in am. 3. Duoneb nebs tid. 4. Continue antibiotics as ordered. 5. Soft diet as tolerated 6. PFT at bedside . 7. Await ID on AFB culture 8. Transfer to [facility]
[2018-10-31 07:13] LABS: Baso # (Auto) 0.1 th/mm3 (0.0-0.2); Baso % (Auto) 1.4 % (0.0-2.0); Eos # (Auto) 0.2 th/mm3 (0.0-0.4); Hematocrit 30.4 % (39.0-51.0); Hemoglobin 10.3 gm/dL (13.0-17.0); Lymph # (Auto) 1.9 th/mm3 (1.0-4.8); Lymph % (Auto) 18.8 % (9.0-44.0); Mean Corpuscular Hemoglobin 30.2 pg (27.0-34.0); Mean Corpuscular Volume 88.8 fL (80.0-100.0); Mean Platelet Volume 7.9 fL (7.0-11.0); Mono # (Auto) 0.9 th/mm3 (0.0-0.9); Mono % (Auto) 9.5 % (0.0-8.0); Neut # (Auto) 6.8 th/mm3 (1.8-7.7); Neut % (Auto) 68.3 % (16.0-70.0); Platelet Count 737 th/mm3 (150-450); Red Blood Count 3.43 mil/mm3 (4.50-5.90); Red Cell Distribution Width 15.5 % (11.6-17.2)
[2018-10-31 07:44] LABS: Alanine Aminotransferase 17 U/L (12-78); Albumin 2.2 g/dL (3.4-5.0); Alkaline Phosphatase 119 U/L (45-117); Anion Gap 10 meq/L (5-15); Aspartate Aminotransferase 27 U/L (15-37); Blood Urea Nitrogen 5 mg/dL (7-18); Calcium 8.2 mg/dL (8.5-10.1); Carbon Dioxide 25.2 meq/L (21.0-32.0); Chloride 105 meq/L (98-107); Glomerular Filtration Rate Greater Than 89 mL/min (>89); Glucose,Random 86 mg/dL (74-106); Sodium 140 meq/L (136-145); Total Protein 7.5 g/dL (6.4-8.2)
[2018-10-31] MEDS: Sodium Chloride 0.9% 2 ML Flush BID IV.FLUSH SCH ×2 (09:42→23:01)
[2018-10-31] MEDS: Potassium Chlor 20 mEq Premix 20 MEQ/100 ML PIGGYBACK IV.SIG SCH ×2 (09:53→12:17)
--- NOTE | 2018-10-31 14:10 | P.PNIM ---
Subjective Interval history: Improve behavior, foot restraints removed safely. No complaints. Potassium low this morning. Physical Exam Vital signs: Last Vital Signs Temp 99.1 F 10/31/18 07:30 Pulse 78 10/31/18 07:30 Resp 18 10/31/18 12:00 BP 142/67 H 10/31/18 07:30 Pulse Ox 95 10/31/18 09:50 Intake & Output 10/29/18 10/30/18 10/31/18 11/01/18 06:59 06:59 06:59 06:59 Intake Total 610 / 610 1770 / 1770 1650 / 1650 305 / 305 Output Total 150 / 150 1700 / 1700 1375 / 1375 Balance 460 / 460 70 / 70 275 / 275 305 / 305 Weight 56.7 kg 52.4 kg 52.9 kg Narrative: GENERAL: NAD, A&Ox1 HEAD: Normocephalic. NECK: Supple, trachea midline. No lymphadenopathy. EYES: No scleral icterus. No injection or drainage. CARDIOVASCULAR: Regular rate and rhythm without murmurs, gallops, or rubs. RESPIRATORY: Breath sounds equal bilaterally. No accessory muscle use. GASTROINTESTINAL: Abdomen soft, non-tender, nondistended. MUSCULOSKELETAL: No cyanosis, or edema. SKIN: Warm and dry. NEURO: No focal neurological deficits. Urinary Catheter Management Indwelling Urethral Catheter: Cath placed during this visit: yes, but has since been removed by the nurse Urethral indwelling: Yes Insertion date: 10/15/18 Insertion time: 14:00 Removal date: 10/21/18 Removal time: 18:00 Condom: Cath placed during this visit: yes Urethral indwelling: Yes Reason for continuing: Not indwelling catheter Insertion date: 10/21/18 Insertion time: 18:00 Results Labs CBC & Chem 7: 10/31/18 05:07 10/31/18 05:07 Assessment and Plan Plan 53-year-old male with past medical history of hypertension, and COPD who presents emergency department with altered mental status found to have traumatic subdural hemorrhage/subarachnoid hemorrhage with skull base fracture, upper gastrointestinal bleed, and left upper lobe cavitary lesion concerning for infectious process. Tolerated wean of restraints to soft restraints upper limbs and without lower limb. Potassium replaced today. Continue to monitor potassium levels. Hypokalemia Resolved Follow-up aldosterone level Chronic encephalopathy Delirium Likely related to brain bleed PRN Haldol Restraints as needed Transfer out of ICU Subdural hemorrhage Subarachnoid hemorrhage Status post bur hole intervention Continue Keppra Continue neurochecks Moderate encephalopathy on EEG Neurology following Continue ceftriaxone for prophylaxis Upper left lung cavitary lesion Follow AFB cultures Isolation ID following Esophagitis Follow CBC DVT prophylaxis SCDs Progress Note: Quality VTE Deep Vein Thrombosis/Pulmonary Embolism Present on Admission: No
[2018-10-31] MEDS: Sod Chloride 0.9% Inj 1,000 ML IV.CONT SCH ×2 (17:26→19:19)
--- NOTE | 2018-10-31 17:49 | P.PN ---
Subjective Interval history: Alert and off O2 and seems to be in no distress. No fever. Has a good appetite. Physical Exam Vital signs: Vital Signs 10/30/18 20:00 10/30/18 20:04 10/31/18 00:00 Temperature 98.2 F 97.9 F Pulse Rate 82 61 Respiratory Rate 20 18 Blood Pressure 154/87 H 131/79 Pulse Oximetry 95 97 95 10/31/18 04:00 10/31/18 07:30 10/31/18 08:08 Temperature 99.1 F 99.1 F Pulse Rate 95 H 78 Respiratory Rate 18 18 16 Blood Pressure 146/84 H 142/67 H Pulse Oximetry 96 95 10/31/18 09:08 10/31/18 09:50 10/31/18 11:45 Temperature 97.9 F Pulse Rate 73 Respiratory Rate 17 Blood Pressure 167/74 H Pulse Oximetry 95 95 97 10/31/18 12:00 10/31/18 14:24 10/31/18 15:52 Temperature 99.3 F Pulse Rate 74 89 Respiratory Rate 18 18 16 Blood Pressure 129/68 Pulse Oximetry 98 10/31/18 16:00 Temperature Pulse Rate Respiratory Rate 16 Blood Pressure Pulse Oximetry Intake & Output 10/30/18 10/31/18 10/31/18 18:59 06:59 18:59 Intake Total 1445 / 1445 205 / 205 405 / 405 Output Total 750 / 750 625 / 625 Balance 695 / 695 -420 / -420 405 / 405 Weight 52.9 kg Intake: IV 1205 / 1205 205 / 205 405 / 405 NS Inj 1,000 ML @ 40 mls/hr IV. 1000 / 1000 CONT .Q24H TOAN Rx#:[id number] KCl 20 mEq Premix Inj 20 meq In 200 / 200 100 ml @ 50 mls/hr IV.SIG Q2H TOAN Rx#:[id number] Rocephin Inj 2,000 MG In NS Inj 100 / 100 100 / 100 100 / 100 100 ML @ 200 mls/hr IV.SIG Q12H TOAN Rx#:[id number] Keppra Inj 500 MG In NS Inj 100 105 / 105 105 / 105 105 / 105 ML @ 400 mls/hr IV.SIG Q12H TOAN Rx#:[id number] Oral 240 / 240 Output: Urine 625 / 625 Urine Amount (Catheter) 750 / 750 Condom 750 / 750 Other: Date of Last Bowel Movement 10/30/18 10/31/18 # Bowel Movements 2 1 Narrative: GENERAL:Mid aged Thin W/M NAD, A&Ox1 HEAD: Normocephalic. NECK: Supple, trachea midline. No lymphadenopathy. EYES: No scleral icterus. No injection or drainage. CARDIOVASCULAR: Regular rate and rhythm without murmurs, gallops, or rubs. RESPIRATORY: Breath sounds equal bilaterally.Occ Wheeze upper chest. No accessory muscle use. GASTROINTESTINAL: Abdomen soft, non-tender, nondistended. MUSCULOSKELETAL: No cyanosis, or edema. SKIN: Warm and dry. NEURO: No focal neurological deficits. - Urinary Catheter Management Indwelling Urethral Catheter Cath placed during this visit: yes, but has since been removed by the nurse Urethral indwelling: Yes Reason for continuing: Decision to DC catheter Insertion date: 10/15/18 Insertion time: 14:00 Removal date: 10/21/18 Removal time: 18:00 Condom Cath placed during this visit: yes Urethral indwelling: Yes Reason for continuing: Not indwelling catheter Insertion date: 10/21/18 Insertion time: 18:00 Results - Labs CBC & Chem 7: 10/31/18 05:07 10/31/18 05:07 Laboratory Results - last 24 hr 10/31/18 10/31/18 05:07 05:07 WBC 10.0 RBC 3.43 L Hgb 10.3 L Hct 30.4 L MCV 88.8 MCH 30.2 MCHC 34.0 RDW 15.5 Plt Count 737 H MPV 7.9 Neut % (Auto) 68.3 Lymph % (Auto) 18.8 [place] % (Auto) 9.5 H Eos % (Auto) 2.0 Baso % (Auto) 1.4 Neut # (Auto) 6.8 Lymph # (Auto) 1.9 [place] # (Auto) 0.9 Eos # (Auto) 0.2 Baso # (Auto) 0.1 WBC Differential . Differential Comment Auto diff final Sodium 140 Potassium 3.0 L Chloride 105 Carbon Dioxide 25.2 Anion Gap 10 BUN 5 L Creatinine 0.53 L Estimated GFR Greater than 89 Random Glucose 86 Calcium 8.2 L Total Bilirubin 0.2 AST 27 ALT 17 Alkaline Phosphatase 119 H Total Protein 7.5 D Albumin 2.2 L Assessment and Plan - Assessment (1) Subdural hematoma, post-traumatic Code(s): S06.5X9A - Traumatic subdural hemorrhage with loss of consciousness of unspecified duration, initial encounter Status: Acute (2) Intracerebral hemorrhage Code(s): I61.9 - Nontraumatic intracerebral hemorrhage, unspecified Status: Acute (3) COPD (chronic obstructive pulmonary disease) Code(s): J44.9 - Chronic obstructive pulmonary disease, unspecified Status: Acute (4) Cavitating mass of lung Code(s): J98.4 - Other disorders of lung Status: Acute (5) Pneumonia Code(s): J18.9 - Pneumonia, unspecified organism Status: Acute (6) GI bleed Code(s): K92.2 - Gastrointestinal hemorrhage, unspecified Status: Acute (7) Anemia Code(s): D64.9 - Anemia, unspecified Status: Acute - Plan 1. CBC,BMP 2. CXR in am. 3. Duoneb nebs tid. 4. Continue antibiotics as ordered. 5. Soft diet as tolerated 6. IS bedside Q3H
[2018-11-01 06:53] LABS: Albumin 2.3 g/dL (3.4-5.0); Anion Gap 8 meq/L (5-15); Aspartate Aminotransferase 27 U/L (15-37); Blood Urea Nitrogen 6 mg/dL (7-18); Calcium 8.5 mg/dL (8.5-10.1); Carbon Dioxide 24.7 meq/L (21.0-32.0); Chloride 103 meq/L (98-107); Glomerular Filtration Rate Greater Than 89 mL/min (>89); Glucose,Random 88 mg/dL (74-106); Potassium 3.4 meq/L (3.5-5.1); Sodium 136 meq/L (136-145)
[2018-11-01 06:54] LABS: Alanine Aminotransferase 16 U/L (12-78)
[2018-11-01 06:56] LABS: Alkaline Phosphatase 126 U/L (45-117); Total Protein 7.9 g/dL (6.4-8.2)
--- NOTE | 2018-11-01 07:38 | XR ---
EXAM DATE: 11/01/2018 7:08 AM EST AGE/SEX: 53 years / Male INDICATIONS: Short of breath, evaluate infiltrate CLINICAL DATA: This is the patient's subsequent encounter. Patient reports that signs and symptoms h ave been present for 1 day and indicates a pain score of Nonresponsive. MEDICAL/SURGICAL HISTORY: Hypertension. Chronic obstructive pulmonary disease. subdural hemato ma, subarachnoid hemorrhage, fracture base of skull, GI bleed Non-responsive. COMPARISON: [facility], CHEST 1V SINGLE AP, 10/25/2018. . FINDINGS: The right lung is clear. Patchy airspace disease is present on the left. The heart and pulmonary vasc ularity are normal. CONCLUSION: Stable chest with persistent infiltrate on the left Electronically signed by: Gianni Raymundo MD Board Certified Radiologist 11/01/2018 7:37 AM EST
[2018-11-01] MEDS: Sodium Chloride 0.9% 2 ML Flush BID IV.FLUSH SCH ×2 (08:52→21:06)
--- NOTE | 2018-11-01 12:10 | P.PNIM ---
Subjective Interval history: Patient today. Thus far has been cooperating and not showing signs of misbehaving so restraints will continue to be weaned as tolerated. Physical Exam Vital signs: Last Vital Signs Temp 98.3 F 11/01/18 07:56 Pulse 64 11/01/18 11:14 Resp 15 11/01/18 11:14 BP 146/75 H 11/01/18 07:56 Pulse Ox 95 11/01/18 07:56 Intake & Output 10/30/18 10/31/18 11/01/18 11/02/18 06:59 06:59 06:59 06:59 Intake Total 1770 / 1770 1650 / 1650 1610 / 1610 100 / 100 Output Total 1700 / 1700 1375 / 1375 2200 / 2200 Balance 70 / 70 275 / 275 -590 / -590 100 / 100 Weight 52.4 kg 52.9 kg 52.9 kg Narrative: GENERAL: NAD, A&Ox1 HEAD: Normocephalic. NECK: Supple, trachea midline. No lymphadenopathy. EYES: No scleral icterus. No injection or drainage. CARDIOVASCULAR: Regular rate and rhythm without murmurs, gallops, or rubs. RESPIRATORY: Breath sounds equal bilaterally. No accessory muscle use. GASTROINTESTINAL: Abdomen soft, non-tender, nondistended. MUSCULOSKELETAL: No cyanosis, or edema. SKIN: Warm and dry. NEURO: No focal neurological deficits. Urinary Catheter Management Indwelling Urethral Catheter: Cath placed during this visit: yes, but has since been removed by the nurse Urethral indwelling: Yes Insertion date: 10/15/18 Insertion time: 14:00 Removal date: 10/21/18 Removal time: 18:00 Condom: Cath placed during this visit: yes Urethral indwelling: Yes Reason for continuing: Not indwelling catheter Insertion date: 10/21/18 Insertion time: 18:00 Results Labs CBC & Chem 7: 10/31/18 05:07 11/01/18 06:00 Labs: Microbiology 10/15/18 17:44 Sputum - Endotracheal Acid Fast Bacilli Smear - Final Acid Fast Bacilli Seen 10/15/18 17:44 Sputum - Endotracheal Mycobacterial Culture - Final Mycobacterium intracellulare Imaging Imaging: Impressions Chest X-Ray 11/01/18 00:00 CONCLUSION: Stable chest with persistent infiltrate on the left Assessment and Plan (1) Subdural hematoma, post-traumatic: Code(s): S06.5X9A - Traumatic subdural hemorrhage with loss of consciousness of unspecified duration, initial encounter Status: Acute (2) Intracerebral hemorrhage: Code(s): I61.9 - Nontraumatic intracerebral hemorrhage, unspecified Status: Acute (3) COPD (chronic obstructive pulmonary disease): Code(s): J44.9 - Chronic obstructive pulmonary disease, unspecified Status: Acute (4) Cavitating mass of lung: Code(s): J98.4 - Other disorders of lung Status: Acute (5) Pneumonia: Code(s): J18.9 - Pneumonia, unspecified organism Status: Acute (6) GI bleed: Code(s): K92.2 - Gastrointestinal hemorrhage, unspecified Status: Acute (7) Anemia: Code(s): D64.9 - Anemia, unspecified Status: Acute Plan 53-year-old male with past medical history of hypertension, and COPD who presents emergency department with altered mental status found to have traumatic subdural hemorrhage/subarachnoid hemorrhage with skull base fracture, upper gastrointestinal bleed, and left upper lobe cavitary lesion concerning for infectious process. soft restraints upper limbs. Potassium improved, further replacement provided today due to slight low level.. Continue to monitor potassium levels. Hypokalemia Resolved Follow-up aldosterone level Chronic encephalopathy Delirium Likely related to brain bleed PRN Haldol Restraints as needed Transfer out of ICU Subdural hemorrhage Subarachnoid hemorrhage Status post bur hole intervention Continue Keppra Continue neurochecks Moderate encephalopathy on EEG Neurology following Continue ceftriaxone for prophylaxis Upper left lung cavitary lesion Follow AFB cultures Isolation ID following Esophagitis Follow CBC DVT prophylaxis SCDs Progress Note: Quality VTE Deep Vein Thrombosis/Pulmonary Embolism Present on Admission: No _ (1) Subdural hematoma, post-traumatic Qualifiers: Encounter type: Loss of consciousness presence/duration: (2) Intracerebral hemorrhage Qualifiers: Intracerebral hemorrhage etiology: Cerebral hemorrhage location: Encounter type: Laterality: Loss of consciousness presence/duration: (3) COPD (chronic obstructive pulmonary disease) Qualifiers: COPD type: Chronic bronchitis type: Emphysema type: (4) Pneumonia Qualifiers: Pneumonia type: Aspiration pneumonia type: Laterality: Lung location: (5) GI bleed Qualifiers: GI bleed type/associated pathology: Gastritis type: (6) Anemia Qualifiers: Anemia type: Iron deficiency anemia type: Vitamin B12 deficiency anemia type: Folate deficiency anemia type: Bone marrow failure anemia type: Hemolytic anemia type: Other causes of anemia: Chronic kidney disease stage :
--- NOTE | 2018-11-01 16:00 | P.PNID ---
Subjective Remarks: Patient is comfortable and converses without difficulty. However he appears to be confused. He has no complaints. Notes to me that he is no longer coughing. Afebrile. Sputum culture staph aureus. 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 is a 53-year-old white male, who was brought to the emergency department in an unresponsive state. The patient was noted to have a skull fracture and a subdural hemorrhage at the right frontal region. He was intubated. He was taken to surgery, and underwent bur hole with evacuation of subarachnoid and subdural hemorrhage. The patient is unresponsive on the ventilator. Information is obtained from the medical record. No history is available at this time. The patient had elevated temperature of 102 on admission. Temperatures today have decreased, and are in normal range; however , it was elevated most of yesterday evening. White blood cell count is elevated at 20.3. Chest x-ray showed ill-defined parenchymal and pleural opacity in the left upper lobe. CT scan of the chest shows a prominent cavitary mass along the left anterolateral upper lung, and also patchy areas of consolidation at the posterior left lower lobe with some lesser degree of cavitary change. Small nodules measuring less than 5 mm were seen at the anterior left lower lobe, and at the right middle lobe. Past history of multiple incarcerations. ? Positive PPD. Antibiotics: Ceftriaxone IV. Lines: Lines ok Past Medical History: reviewed Allergies/Adverse Reactions: Allergies lisinopril Allergy (Intermediate, Verified 10/15/18 13:39) hallucinations amlodipine Allergy (Unknown, Verified 10/15/18 13:38) headaches Objective Vital Signs 10/31/18 15:52 10/31/18 16:00 10/31/18 20:00 Temperature 99.3 F 98.1 F Pulse Rate 89 81 Respiratory Rate 16 16 20 Blood Pressure 129/68 135/67 Pulse Oximetry 98 97 11/01/18 01:40 11/01/18 05:34 11/01/18 07:27 Temperature 98.3 F 98.7 F Pulse Rate 76 61 Respiratory Rate 20 20 Blood Pressure 137/80 154/74 H Pulse Oximetry 95 95 95 11/01/18 07:56 11/01/18 11:14 11/01/18 12:25 Temperature 98.3 F 97.7 F Pulse Rate 76 64 64 Respiratory Rate 18 15 18 Blood Pressure 146/75 H 130/82 Pulse Oximetry 95 93 L Intake & Output 10/31/18 11/01/18 11/01/18 18:59 06:59 18:59 Intake Total 1405 / 1405 205 / 205 100 / 100 Output Total 1600 / 1600 600 / 600 Balance -195 / -195 -395 / -395 100 / 100 Weight 52.9 kg Intake: IV 1405 / 1405 205 / 205 100 / 100 NS Inj 1,000 ML @ 40 mls/hr IV. 1000 / 1000 CONT .Q24H TOAN Rx#:[id number] KCl 20 mEq Premix Inj 20 meq In 200 / 200 100 ml @ 50 mls/hr IV.SIG Q2H TOAN Rx#:[id number] Rocephin Inj 2,000 MG In NS Inj 100 / 100 100 / 100 100 / 100 100 ML @ 200 mls/hr IV.SIG Q12H TOAN Rx#:[id number] Keppra Inj 500 MG In NS Inj 100 105 / 105 105 / 105 ML @ 400 mls/hr IV.SIG Q12H TOAN Rx#:[id number] Output: Urine 600 / 600 Urine Amount (Catheter) 1600 / 1600 Condom 1600 / 1600 Other: # Incontinent Voids 2 Date of Last Bowel Movement 10/31/18 # Bowel Movements 2 10/15/18 17:44 Sputum - Endotracheal Acid Fast Bacilli Smear - Final Acid Fast Bacilli Seen 10/15/18 17:44 Sputum - Endotracheal Mycobacterial Culture - Final Mycobacterium intracellulare Lab - Hematology Results 10/31/18 05:07 WBC 10.0 RBC 3.43 L Hgb 10.3 L Hct 30.4 L MCV 88.8 MCH 30.2 MCHC 34.0 RDW 15.5 Plt Count 737 H MPV 7.9 Neut % (Auto) 68.3 Lymph % (Auto) 18.8 Republic % (Auto) 9.5 H Eos % (Auto) 2.0 Baso % (Auto) 1.4 Neut # (Auto) 6.8 Lymph # (Auto) 1.9 Republic # (Auto) 0.9 Eos # (Auto) 0.2 Baso # (Auto) 0.1 WBC Differential . Differential Comment Auto diff final Lab - Chemistry Results 10/28/18 10/31/18 11/01/18 07:56 05:07 06:00 Sodium 140 136 Potassium 3.0 L 3.4 L Chloride 105 103 Carbon Dioxide 25.2 24.7 Anion Gap 10 8 BUN 5 L 6 L Creatinine 0.53 L 0.57 L Estimated GFR Greater than 89 Greater than 89 Random Glucose 86 88 Calcium 8.2 L 8.5 Total Bilirubin 0.2 0.3 AST 27 27 ALT 17 16 Alkaline Phosphatase 119 H 126 H Total Protein 7.5 D 7.9 Albumin 2.2 L 2.3 L Aldosterone Less than 1.0 Imaging: ITS Impressions Cervical Spine CT 10/15/18 13:26 CONCLUSION: 1. No acute fracture or subluxation. 2. Partially imaged large cavitary lesion in the left lung apex. Chest CT to follow. 3. Multilevel degenerative spondylosis of the cervical spine. Abdomen/Pelvis CT 10/15/18 15:27 CONCLUSION: 1. Extensive wall thickening urinary bladder, neoplastic process should be excluded. 2. Diverticulosis without diverticulitis. 3. Bilateral nonobstructing renal calculi. 4. Left basilar infiltrate. Chest CT 10/15/18 15:27 CONCLUSION: 1. Prominent cavitary mass along the anterior lateral left upper lung. This could be inflammatory/infectious versus neoplastic. It is nonspecific. 2. Patchy areas of consolidation seen at the posterior left lower lung with some lesser degree of cavitary change. This most closely resembles postinflammatory change although is nonspecific. 3. Small nodules measuring less than 5 mm at the anterior left lower lung and at the right middle lobe. These are nonspecific. They can be followed. 4. Significant adenopathy is not seen. Carotid Doppler Study 10/16/18 10:06 CONCLUSION: Negative examination for a hemodynamically significant carotid stenosis. Gianni Raymundo MD FACR Head CT 10/17/18 00:00 CONCLUSION: 1. Stable exam as detailed above. . Knee X-Ray 10/21/18 00:00 CONCLUSION: 1. Chronic irregularity of the superior pole along the patella with apparent ossification. There is adjacent mild soft tissue prominence. 2. Remote postsurgical changes in the proximal tibia. Chest X-Ray 11/01/18 00:00 CONCLUSION: Stable chest with persistent infiltrate on the left Physical Exam: GENERAL: No acute distress. HEENT: Pupils reactive to light. Extraocular movements intact. No icterus. Oropharynx mucosa slightly dry. NECK: Supple without adenopathy. No swelling. LUNGS: Decreased breath sounds. HEART: Regular S1-S2 without murmurs rubs or gallops. ABDOMEN: Bowel sounds present, soft, no tenderness appreciated. EXTREMITIES: No clubbing cyanosis or edema. Diffuse muscle wasting. SKIN: No diffuse rash. NEUROLOGIC: No gross focal finding PSYCH: Calm. Assessment and Plan - Plan Pulmonary MARTINA disease. Left upper lobe cavitary lesion-mass. Sputum culture shows Mycobacterium intracellulare. Encephalopathy Traumatic subdural hemorrhage/subarachnoid hemorrhage with skull base fracture Anemia-most likely acute on chronic blood loss related Sepsis Recommend: Stop ceftriaxone. Begin azithromycin, ethambutol and rifampin for MARTINA. Avoid Haldol while he is on azithromycin. Obtain HIV test Discontinue isolation. Patient will need supervised setting in order to be able to treat for the mycobacteria. Duration of treatment for MARTINA is between 18 and 24 months. Sputum smear and culture will need to be monitored monthly to check for clearance of the [place] from the sputum and antibiotics is usually continued for 12 months after negative sputum. Liver function test need to be monitored weekly while on these antibiotics. If HIV test is positive he should be referred to the health department for treatment. Patient will need follow-up with infectious disease physician when discharged.
--- NOTE | 2018-11-01 18:00 | P.PN ---
Subjective Interval history: He is breathing easier. No fever. On therapy for MARTINA Zithromax , Ethambutol. Physical Exam Vital signs: Vital Signs 10/31/18 20:00 11/01/18 01:40 11/01/18 05:34 Temperature 98.1 F 98.3 F 98.7 F Pulse Rate 81 76 61 Respiratory Rate 20 20 20 Blood Pressure 135/67 137/80 154/74 H Pulse Oximetry 97 95 95 11/01/18 07:27 11/01/18 07:56 11/01/18 11:14 Temperature 98.3 F Pulse Rate 76 64 Respiratory Rate 18 15 Blood Pressure 146/75 H Pulse Oximetry 95 95 11/01/18 12:25 11/01/18 16:30 Temperature 97.7 F 98.2 F Pulse Rate 64 64 Respiratory Rate 18 20 Blood Pressure 130/82 143/80 H Pulse Oximetry 93 L 95 Intake & Output 10/31/18 11/01/18 11/01/18 18:59 06:59 18:59 Intake Total 1405 / 1405 205 / 205 340 / 340 Output Total 1600 / 1600 600 / 600 1000 / 1000 Balance -195 / -195 -395 / -395 -660 / -660 Weight 52.9 kg Intake: IV 1405 / 1405 205 / 205 100 / 100 NS Inj 1,000 ML @ 40 mls/hr IV. 1000 / 1000 CONT .Q24H TOAN Rx#:[id number] KCl 20 mEq Premix Inj 20 meq In 200 / 200 100 ml @ 50 mls/hr IV.SIG Q2H TOAN Rx#:[id number] Rocephin Inj 2,000 MG In NS Inj 100 / 100 100 / 100 100 / 100 100 ML @ 200 mls/hr IV.SIG Q12H TOAN Rx#:[id number] Keppra Inj 500 MG In NS Inj 100 105 / 105 105 / 105 ML @ 400 mls/hr IV.SIG Q12H TOAN Rx#:[id number] Oral 240 / 240 Output: Urine 600 / 600 1000 / 1000 Urine Amount (Catheter) 1600 / 1600 Condom 1600 / 1600 Other: # Incontinent Voids 2 Date of Last Bowel Movement 10/31/18 # Bowel Movements 2 Narrative: GENERAL: NAD, A&Ox1 Thin mid aged W/M HEAD: Normocephalic. NECK: Supple, trachea midline. No lymphadenopathy. EYES: No scleral icterus. No injection or drainage. CARDIOVASCULAR: Regular rate and rhythm without murmurs, gallops, or rubs. RESPIRATORY: Breath sounds equal bilaterally.Occ Wheezes upper chest. No accessory muscle use. GASTROINTESTINAL: Abdomen soft, non-tender, nondistended. MUSCULOSKELETAL: No cyanosis, or edema. SKIN: Warm and dry. NEURO: No focal neurological deficits. - Urinary Catheter Management Indwelling Urethral Catheter Cath placed during this visit: yes, but has since been removed by the nurse Urethral indwelling: Yes Reason for continuing: Decision to DC catheter Insertion date: 10/15/18 Insertion time: 14:00 Removal date: 10/21/18 Removal time: 18:00 Condom Cath placed during this visit: yes Urethral indwelling: Yes Reason for continuing: Not indwelling catheter Insertion date: 10/21/18 Insertion time: 18:00 Results - Labs CBC & Chem 7: 10/31/18 05:07 11/01/18 06:00 Laboratory Results - last 24 hr 11/01/18 06:00 Sodium 136 Potassium 3.4 L Chloride 103 Carbon Dioxide 24.7 Anion Gap 8 BUN 6 L Creatinine 0.57 L Estimated GFR Greater than 89 Random Glucose 88 Calcium 8.5 Total Bilirubin 0.3 AST 27 ALT 16 Alkaline Phosphatase 126 H Total Protein 7.9 Albumin 2.3 L Microbiology 10/15/18 17:44 Sputum - Endotracheal Acid Fast Bacilli Smear - Final Acid Fast Bacilli Seen 10/15/18 17:44 Sputum - Endotracheal Mycobacterial Culture - Final Mycobacterium intracellulare - Imaging Impressions Chest X-Ray 11/01/18 00:00 CONCLUSION: Stable chest with persistent infiltrate on the left Assessment and Plan - Assessment (1) Subdural hematoma, post-traumatic Code(s): S06.5X9A - Traumatic subdural hemorrhage with loss of consciousness of unspecified duration, initial encounter Status: Acute (2) Intracerebral hemorrhage Code(s): I61.9 - Nontraumatic intracerebral hemorrhage, unspecified Status: Acute (3) COPD (chronic obstructive pulmonary disease) Code(s): J44.9 - Chronic obstructive pulmonary disease, unspecified Status: Acute (4) Cavitating mass of lung Code(s): J98.4 - Other disorders of lung Status: Acute (5) Pneumonia Code(s): J18.9 - Pneumonia, unspecified organism Status: Acute (6) GI bleed Code(s): K92.2 - Gastrointestinal hemorrhage, unspecified Status: Acute (7) Anemia Code(s): D64.9 - Anemia, unspecified Status: Acute - Plan 1. PFT with Bronchodilator 2. Continue antibiotics per ID 3. Duoneb nebs tid. 4. Labs on Sunday 5. Soft diet as tolerated 6. IS bedside Q3H
[2018-11-01] MEDS: Azithromycin 250 MG Tablet PO SCH (19:37)
[2018-11-01] MEDS: Sod Chloride 0.9% Inj 1,000 ML IV.CONT SCH ×2 (19:37→19:41)
[2018-11-02 06:41] LABS: Albumin 2.6 g/dL (3.4-5.0); Anion Gap 11 meq/L (5-15); Aspartate Aminotransferase 28 U/L (15-37); Blood Urea Nitrogen 7 mg/dL (7-18); Calcium 8.7 mg/dL (8.5-10.1); Carbon Dioxide 26.1 meq/L (21.0-32.0); Chloride 100 meq/L (98-107); Glomerular Filtration Rate Greater Than 89 mL/min (>89); Glucose,Random 81 mg/dL (74-106); Potassium 3.1 meq/L (3.5-5.1); Sodium 137 meq/L (136-145)
[2018-11-02 06:42] LABS: Alanine Aminotransferase 17 U/L (12-78)
[2018-11-02 06:44] LABS: Alkaline Phosphatase 134 U/L (45-117); Total Protein 8.2 g/dL (6.4-8.2)
[2018-11-02] MEDS: Azithromycin 250 MG Tablet PO SCH (08:50)
[2018-11-02] MEDS: Sodium Chloride 0.9% 2 ML Flush BID IV.FLUSH SCH ×2 (11:06→22:46)
--- NOTE | 2018-11-02 11:09 | P.PNIM ---
Subjective Interval history: Combative again overnight, placed back in four-point restraints. No other complaints. Potassium level low this morning. Physical Exam Vital signs: Last Vital Signs Temp 98.8 F 11/02/18 07:29 Pulse 79 11/02/18 07:29 Resp 16 11/02/18 08:00 BP 159/83 H 11/02/18 07:29 Pulse Ox 97 11/02/18 09:16 Intake & Output 10/31/18 11/01/18 11/02/18 11/03/18 06:59 06:59 06:59 06:59 Intake Total 1650 / 1650 1610 / 1610 1890 / 1890 Output Total 1375 / 1375 2200 / 2200 1002 / 1002 Balance 275 / 275 -590 / -590 888 / 888 Weight 52.9 kg 52.9 kg Narrative: GENERAL: NAD, A&Ox1 HEAD: Normocephalic. NECK: Supple, trachea midline. No lymphadenopathy. EYES: No scleral icterus. No injection or drainage. CARDIOVASCULAR: Regular rate and rhythm without murmurs, gallops, or rubs. RESPIRATORY: Breath sounds equal bilaterally. No accessory muscle use. GASTROINTESTINAL: Abdomen soft, non-tender, nondistended. MUSCULOSKELETAL: No cyanosis, or edema. SKIN: Warm and dry. NEURO: No focal neurological deficits. Urinary Catheter Management Indwelling Urethral Catheter: Cath placed during this visit: yes, but has since been removed by the nurse Urethral indwelling: Yes Insertion date: 10/15/18 Insertion time: 14:00 Removal date: 10/21/18 Removal time: 18:00 Condom: Cath placed during this visit: yes Urethral indwelling: Yes Reason for continuing: Not indwelling catheter Insertion date: 10/21/18 Insertion time: 18:00 Results Labs CBC & Chem 7: 10/31/18 05:07 11/02/18 04:11 Labs: Microbiology 10/15/18 17:44 Sputum - Endotracheal Acid Fast Bacilli Smear - Final Acid Fast Bacilli Seen 10/15/18 17:44 Sputum - Endotracheal Mycobacterial Culture - Final Mycobacterium intracellulare Assessment and Plan Plan 53-year-old male with past medical history of hypertension, and COPD who presents emergency department with altered mental status found to have traumatic subdural hemorrhage/subarachnoid hemorrhage with skull base fracture, upper gastrointestinal bleed, and left upper lobe cavitary lesion concerning for infectious process. Patient is back in four-point soft restraints. Continue monitoring potassium and replace as needed. Continue supportive care for patient's compromised cognitive status related to subacute intracranial hemorrhage. Hypokalemia Resolved Follow-up aldosterone level Chronic encephalopathy Delirium Likely related to brain bleed PRN Haldol Restraints as needed Transfer out of ICU Subdural hemorrhage Subarachnoid hemorrhage Status post bur hole intervention Continue Keppra Continue neurochecks Moderate encephalopathy on EEG Neurology following Continue ceftriaxone for prophylaxis Upper left lung cavitary lesion Follow AFB cultures Isolation ID following Esophagitis Follow CBC DVT prophylaxis SCDs Progress Note: Quality VTE Deep Vein Thrombosis/Pulmonary Embolism Present on Admission: No
[2018-11-02] MEDS: Sod Chloride 0.9% Inj 1,000 ML IV.CONT SCH (22:48)
[2018-11-03] MEDS: Azithromycin 250 MG Tablet PO SCH (08:34)
[2018-11-03] MEDS: Sodium Chloride 0.9% 2 ML Flush BID IV.FLUSH SCH ×2 (08:35→21:12)
[2018-11-03 10:30] LABS: Alanine Aminotransferase 13 U/L (12-78); Albumin 2.2 g/dL (3.4-5.0); Alkaline Phosphatase 120 U/L (45-117); Anion Gap 14 meq/L (5-15); Aspartate Aminotransferase 23 U/L (15-37); Blood Urea Nitrogen 8 mg/dL (7-18); Calcium 8.6 mg/dL (8.5-10.1); Carbon Dioxide 22.2 meq/L (21.0-32.0); Chloride 102 meq/L (98-107); Glomerular Filtration Rate Greater Than 89 mL/min (>89); Glucose,Random 70 mg/dL (74-106); Sodium 138 meq/L (136-145); Total Protein 7.6 g/dL (6.4-8.2)
[2018-11-03 10:44] LABS: Potassium 2.9 meq/L (3.5-5.1)
--- NOTE | 2018-11-03 12:08 | P.PNIM ---
Subjective Interval history: . Patient remains pleasantly confused still on restraints discussed with nursing. Continues to be on potassium supplementation no diarrhea. Physical Exam Vital signs: Last Vital Signs Temp 98 F 11/03/18 08:00 Pulse 65 11/03/18 08:00 Resp 20 11/03/18 08:00 BP 126/66 11/03/18 08:00 Pulse Ox 96 11/03/18 08:00 Intake & Output 11/01/18 11/02/18 11/03/18 11/04/18 06:59 06:59 06:59 06:59 Intake Total 1610 / 1610 1890 / 1890 1470 / 1470 100 / 100 Output Total 2200 / 2200 1002 / 1002 Balance -590 / -590 888 / 888 1470 / 1470 100 / 100 Weight 52.9 kg 52.9 kg Narrative: GENERAL: NAD, A&Ox1 CARDIOVASCULAR: Regular rate and rhythm without murmurs, gallops, or rubs. RESPIRATORY: Breath sounds equal bilaterally. No accessory muscle use. GASTROINTESTINAL: Abdomen soft, non-tender, nondistended. MUSCULOSKELETAL: No cyanosis, or edema. SKIN: Warm and dry. NEURO: No focal neurological deficits. Urinary Catheter Management Indwelling Urethral Catheter: Cath placed during this visit: yes, but has since been removed by the nurse Urethral indwelling: Yes Insertion date: 10/15/18 Insertion time: 14:00 Removal date: 10/21/18 Removal time: 18:00 Condom: Cath placed during this visit: yes Urethral indwelling: Yes Reason for continuing: Decision to DC catheter Insertion date: 10/21/18 Insertion time: 18:00 Results Labs CBC & Chem 7: 10/31/18 05:07 11/03/18 07:05 Assessment and Plan Plan 53-year-old male with past medical history of hypertension, and COPD who presents emergency department with altered mental status found to have traumatic subdural hemorrhage/subarachnoid hemorrhage with skull base fracture, upper gastrointestinal bleed, and left upper lobe cavitary lesion concerning for infectious process. Hypokalemia Increase K to 40 mEq p.o. twice a day and check magnesium level Chronic encephalopathy Delirium Likely related to brain bleed PRN Haldol Restraints as needed Subdural hemorrhage Subarachnoid hemorrhage Status post bur hole intervention Continue Keppra switch to po will clarify with NS dc date Continue neurochecks Moderate encephalopathy on EEG Neurology following Continue ceftriaxone for prophylaxis Upper left lung cavitary lesion Follow AFB cultures- MARTINA azithromycin, ethambutol and rifampin for MARTINA. Avoid Haldol while he is on azithromycin. Obtain HIV test Discontinue isolation. Patient will need supervised setting in order to be able to treat for the mycobacteria. Duration of treatment for MARTINA is between 18 and 24 months. Sputum smear and culture will need to be monitored monthly to check for clearance of the [place] from the sputum and antibiotics is usually continued for 12 months after negative sputum. The function test need to be monitored weekly while on these antibiotics. If HIV test is positive he should be referred to the health department for treatment. Patient will need follow-up with infectious disease physician when discharged. ID following Esophagitis Ct PPI Follow CBC DVT prophylaxis SCDs Progress Note: Quality VTE Deep Vein Thrombosis/Pulmonary Embolism Present on Admission: No
[2018-11-03 15:09] LABS: Magnesium 1.6 mg/dL (1.5-2.5)
[2018-11-03] MEDS: levETIRAcetam 500 MG Tablet PO SCH (21:12)
[2018-11-04] MEDS: Azithromycin 250 MG Tablet PO SCH (08:00)
[2018-11-04] MEDS: levETIRAcetam 500 MG Tablet PO SCH ×2 (08:00→21:08)
[2018-11-04] MEDS: Sodium Chloride 0.9% 2 ML Flush BID IV.FLUSH SCH ×2 (08:01→21:10)
[2018-11-04 10:32] LABS: Anion Gap 14 meq/L (5-15); Blood Urea Nitrogen 8 mg/dL (7-18); Calcium 8.7 mg/dL (8.5-10.1); Chloride 105 meq/L (98-107); Glomerular Filtration Rate Greater Than 89 mL/min (>89); Glucose,Random 70 mg/dL (74-106); Magnesium 1.7 mg/dL (1.5-2.5); Potassium 3.3 meq/L (3.5-5.1); Sodium 141 meq/L (136-145)
--- NOTE | 2018-11-04 11:35 | P.PNID ---
Subjective Remarks: Patient is confused. Confused. He has no complaints. Laying in stools in bed. Low-grade fever. Sputum culture staph aureus. 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 HIV negative. is a 53-year-old white male, who was brought to the emergency department in an unresponsive state. The patient was noted to have a skull fracture and a subdural hemorrhage at the right frontal region. He was intubated. He was taken to surgery, and underwent bur hole with evacuation of subarachnoid and subdural hemorrhage. The patient is unresponsive on the ventilator. Information is obtained from the medical record. No history is available at this time. The patient had elevated temperature of 102 on admission. Temperatures today have decreased, and are in normal range; however , it was elevated most of yesterday evening. White blood cell count is elevated at 20.3. Chest x-ray showed ill-defined parenchymal and pleural opacity in the left upper lobe. CT scan of the chest shows a prominent cavitary mass along the left anterolateral upper lung, and also patchy areas of consolidation at the posterior left lower lobe with some lesser degree of cavitary change. Small nodules measuring less than 5 mm were seen at the anterior left lower lobe, and at the right middle lobe. Past history of multiple incarcerations. ? Positive PPD. Past Medical History: reviewed Allergies/Adverse Reactions: Allergies lisinopril Allergy (Intermediate, Verified 10/15/18 13:39) hallucinations amlodipine Allergy (Unknown, Verified 10/15/18 13:38) headaches Objective Vital Signs 11/03/18 12:00 11/03/18 13:11 11/03/18 15:54 Temperature 97.4 F L Pulse Rate 74 Respiratory Rate 18 12 12 Blood Pressure 128/70 Pulse Oximetry 96 11/03/18 16:00 11/03/18 20:00 11/04/18 00:00 Temperature 98.1 F 99.1 F 99.7 F H Pulse Rate 82 85 78 Respiratory Rate 18 18 16 Blood Pressure 125/74 118/73 143/76 H Pulse Oximetry 99 96 97 11/04/18 04:00 11/04/18 08:00 11/04/18 09:57 Temperature 99.7 F H 97.9 F Pulse Rate 86 73 Respiratory Rate 16 20 Blood Pressure 112/69 126/69 Pulse Oximetry 97 98 98 Intake & Output 11/03/18 11/04/18 11/04/18 18:59 06:59 18:59 Intake Total 845 / 845 Output Total 200 / 200 600 / 600 Balance 645 / 645 -600 / -600 Intake: IV 605 / 605 NS Inj 1,000 ML @ 40 mls/hr IV. 400 / 400 CONT .Q24H TOAN Rx#:[id number] Rocephin Inj 2,000 MG In NS Inj 100 / 100 100 ML @ 200 mls/hr IV.SIG Q12H TOAN Rx#:[id number] Keppra Inj 500 MG In NS Inj 100 105 / 105 ML @ 400 mls/hr IV.SIG Q12H TOAN Rx#:[id number] Oral 240 / 240 Output: Urine 200 / 200 600 / 600 Other: Date of Last Bowel Movement 11/01/18 # Incontinent Bowel Movements 1 10/15/18 17:44 Sputum - Endotracheal Acid Fast Bacilli Smear - Final Acid Fast Bacilli Seen 10/15/18 17:44 Sputum - Endotracheal Mycobacterial Culture - Final Mycobacterium intracellulare Lab - Chemistry Results 11/03/18 11/04/18 07:05 07:14 Sodium 138 141 Potassium 2.9 L* 3.3 L Chloride 102 105 Carbon Dioxide 22.2 22.0 Anion Gap 14 14 BUN 8 8 Creatinine 0.45 L 0.50 L Estimated GFR Greater than 89 Greater than 89 Random Glucose 70 L 70 L Calcium 8.6 8.7 Magnesium 1.6 1.7 Total Bilirubin 0.8 AST 23 ALT 13 Alkaline Phosphatase 120 H Total Protein 7.6 D Albumin 2.2 L Imaging: ITS Impressions Cervical Spine CT 10/15/18 13:26 CONCLUSION: 1. No acute fracture or subluxation. 2. Partially imaged large cavitary lesion in the left lung apex. Chest CT to follow. 3. Multilevel degenerative spondylosis of the cervical spine. Abdomen/Pelvis CT 10/15/18 15:27 CONCLUSION: 1. Extensive wall thickening urinary bladder, neoplastic process should be excluded. 2. Diverticulosis without diverticulitis. 3. Bilateral nonobstructing renal calculi. 4. Left basilar infiltrate. Chest CT 10/15/18 15:27 CONCLUSION: 1. Prominent cavitary mass along the anterior lateral left upper lung. This could be inflammatory/infectious versus neoplastic. It is nonspecific. 2. Patchy areas of consolidation seen at the posterior left lower lung with some lesser degree of cavitary change. This most closely resembles postinflammatory change although is nonspecific. 3. Small nodules measuring less than 5 mm at the anterior left lower lung and at the right middle lobe. These are nonspecific. They can be followed. 4. Significant adenopathy is not seen. Carotid Doppler Study 10/16/18 10:06 CONCLUSION: Negative examination for a hemodynamically significant carotid stenosis. Gianni Raymundo MD FACR Head CT 10/17/18 00:00 CONCLUSION: 1. Stable exam as detailed above. . Knee X-Ray 10/21/18 00:00 CONCLUSION: 1. Chronic irregularity of the superior pole along the patella with apparent ossification. There is adjacent mild soft tissue prominence. 2. Remote postsurgical changes in the proximal tibia. Chest X-Ray 11/01/18 00:00 CONCLUSION: Stable chest with persistent infiltrate on the left Physical Exam: GENERAL: No acute distress. HEENT: Pupils reactive to light. Extraocular movements intact. No icterus. Oropharynx mucosa slightly dry. NECK: Supple without adenopathy. No swelling. LUNGS: Decreased breath sounds. HEART: Regular S1-S2 without murmurs rubs or gallops. ABDOMEN: Bowel sounds present, soft, no tenderness appreciated. EXTREMITIES: No clubbing cyanosis or edema. Diffuse muscle wasting. SKIN: No diffuse rash. NEUROLOGIC: No gross focal finding PSYCH: Calm. Assessment and Plan - Plan Pulmonary MARTINA disease. Left upper lobe cavitary lesion-mass. Sputum culture shows Mycobacterium intracellulare. Encephalopathy Traumatic subdural hemorrhage/subarachnoid hemorrhage with skull base fracture Anemia-most likely acute on chronic blood loss related Sepsis Recommend: Continue azithromycin, ethambutol and rifampin for MARTINA. Avoid Haldol while he is on azithromycin. Patient will need supervised setting in order to be able to treat for the mycobacteria. Duration of treatment for MARTINA is between 18 and 24 months. Sputum smear and culture will need to be monitored monthly to check for clearance of the [place] from the sputum and antibiotics is usually continued for 12 months after negative sputum. Liver function test need to be monitored weekly while on these antibiotics. Patient will need follow-up with infectious disease physician when discharged.
--- NOTE | 2018-11-04 13:05 | P.PNIM ---
Subjective Interval history: Follow-up hypokalemia. Patient has no complaints no nausea, vomiting and diarrhea. Physical Exam Vital signs: Last Vital Signs Temp 97.9 F 11/04/18 08:00 Pulse 73 11/04/18 08:00 Resp 20 11/04/18 08:00 BP 126/69 11/04/18 08:00 Pulse Ox 98 11/04/18 09:57 Intake & Output 11/02/18 11/03/18 11/04/18 11/05/18 06:59 06:59 06:59 06:59 Intake Total 1890 / 1890 1470 / 1470 845 / 845 Output Total 1002 / 1002 800 / 800 Balance 888 / 888 1470 / 1470 45 / 45 Weight 52.9 kg Narrative: GENERAL: NAD, A&Ox1. On four-point restraints CARDIOVASCULAR: Regular rate and rhythm without murmurs, gallops, or rubs. RESPIRATORY: Breath sounds equal bilaterally. No accessory muscle use. GASTROINTESTINAL: Abdomen soft, non-tender, nondistended. MUSCULOSKELETAL: No cyanosis, or edema. SKIN: Warm and dry. NEURO: No focal neurological deficits. Urinary Catheter Management Indwelling Urethral Catheter: Cath placed during this visit: yes, but has since been removed by the nurse Urethral indwelling: Yes Insertion date: 10/15/18 Insertion time: 14:00 Removal date: 10/21/18 Removal time: 18:00 Condom: Cath placed during this visit: yes Urethral indwelling: Yes Reason for continuing: Not indwelling catheter Insertion date: 10/21/18 Insertion time: 18:00 Results Labs CBC & Chem 7: 10/31/18 05:07 11/04/18 07:14 Assessment and Plan Plan 53-year-old male with past medical history of hypertension, and COPD who presents emergency department with altered mental status found to have traumatic subdural hemorrhage/subarachnoid hemorrhage with skull base fracture, upper gastrointestinal bleed, and left upper lobe cavitary lesion concerning for infectious process. Hypokalemia. Improving Extra 40 mg p.o. potassium today repeat labs in the morning Chronic encephalopathy Delirium Likely related to brain bleed Restraints as needed Subdural hemorrhage Subarachnoid hemorrhage Status post bur hole intervention Continue Keppra switch to po will clarify with NS dc date Continue neurochecks Moderate encephalopathy on EEG Neurology following Upper left lung cavitary lesion Follow AFB cultures- MARTINA azithromycin, ethambutol and rifampin for MARTINA. Avoid Haldol while he is on azithromycin. Neg HIV test Discontinue isolation. Patient will need supervised setting in order to be able to treat for the mycobacteria. Duration of treatment for MARTINA is between 18 and 24 months. Sputum smear and culture will need to be monitored monthly to check for clearance of the [place] from the sputum and antibiotics is usually continued for 12 months after negative sputum. liver function test need to be monitored weekly while on these antibiotics. Patient will need follow-up with infectious disease physician when discharged. ID following Esophagitis Ct PPI Follow CBC DVT prophylaxis SCDs Progress Note: Quality VTE Deep Vein Thrombosis/Pulmonary Embolism Present on Admission: No
--- NOTE | 2018-11-04 14:19 | P.DIET ---
Nutritional Evaluation Type of nutrition evaluation: follow-up Nutrition consult regarding: Tube Feeding (TFing d/c'ed) Screening comments: 10/20 TF review Objective - Diagnosis GI bleed, anemia, ICH - Objective % IBW: 86 (IBW = 148lb) Body Weight Used for Calculations: Actual Energy Needs - Lower Range (kCal/kg): 30 Energy Needs - Upper Range (kCal/kg): 35 Lower Limit kCal/kg (kCals): 1,734 Upper Limit kCal/kg (kCals): 2,023 Lower Limit Protein Factor (Grams per Kg): 1.2 Upper Limit Protein Factor (Grams per Kg): 1.4 Lower Protein Needs (Protein): 69 Upper Protein Needs (Protein): 81 Dietitian Reviewed in Medical Record: Current diet, Curent medications, Intake & Output, Labs, Medical history, Tube feeding Diet Order: regular diet w/ Ensure Enlive TID Speech Therapy Recommendations: Yes Objective Comments: PMH: HTN, s/p ORIF fx, traumatic amputation of toe Assessment Assessment: Pt remains at high nutrition risk with a BMI of 18.3. Pt currently consuming a regular diet and has good PO intake, eating 100% for most meals. Continue to monitor PO and supplement intake. Provide feeding assistance as needed. Labs reviewed, dietitian following. Recommendations: 1. Continue to monitor PO and supplement intake 2. Provide feeding assistance as needed 3. Dietitian following Dietitian to Monitor: Lab values, Supplement acceptance, Intake & Output, Diet tolerance, Weight change, PO Intake, Diet advancement, Swallow recommendations, Medical course
[2018-11-05 07:33] LABS: Anion Gap 8 meq/L (5-15); Blood Urea Nitrogen 10 mg/dL (7-18); Calcium 8.9 mg/dL (8.5-10.1); Carbon Dioxide 23.2 meq/L (21.0-32.0); Chloride 113 meq/L (98-107); Glomerular Filtration Rate Greater Than 89 mL/min (>89); Glucose,Random 103 mg/dL (74-106); Magnesium 1.8 mg/dL (1.5-2.5); Potassium 4.1 meq/L (3.5-5.1); Sodium 144 meq/L (136-145)
--- NOTE | 2018-11-05 09:13 | XR ---
EXAM DATE: 11/05/2018 9:06 AM EST AGE/SEX: 53 years / Male INDICATIONS: Short of breath. CLINICAL DATA: This is the patient's subsequent encounter. Patient reports that signs and symptoms h ave been present for 2 weeks and indicates a pain score of 0/10. MEDICAL/SURGICAL HISTORY: . Hypertension. Chronic obstructive pulmonary disease. subdural barbara alberto, subarachnoid hemorrhage, fracture base of skull, GI bleed Non-responsive. COMPARISON: [facility] [place], CHEST 1V SINGLE AP, 11/01/2018. [facility] [place], CT CHEST W CONTRAST, 10/15/2018. . FINDINGS: Persistent patchy density in the left upper lung with some cavitary change. This was present previous ly. The right lung is clear. The heart size is normal. CONCLUSION: Persistent consolidation and cavitary change in the left upper lung. Electronically signed by: Hal Geiger MD Board Certified Radiologist 11/05/2018 9:12 AM EST
[2018-11-05] MEDS: Azithromycin 250 MG Tablet PO SCH (09:28)
[2018-11-05] MEDS: levETIRAcetam 500 MG Tablet PO SCH (09:28)
[2018-11-05] MEDS: Sodium Chloride 0.9% 2 ML Flush BID IV.FLUSH SCH (09:29)
[2018-11-05 12:24] LABS: Baso # (Auto) 0.1 th/mm3 (0.0-0.2); Baso % (Auto) 1.3 % (0.0-2.0); Eos # (Auto) 0.3 th/mm3 (0.0-0.4); Eos % (Auto) 2.5 % (0.0-4.0); Hematocrit 32.4 % (39.0-51.0); Hemoglobin 10.5 gm/dL (13.0-17.0); Lymph # (Auto) 1.3 th/mm3 (1.0-4.8); Lymph % (Auto) 12.7 % (9.0-44.0); Mean Corpuscular HGB Conc 32.4 % (32.0-36.0); Mean Corpuscular Volume 89.7 fL (80.0-100.0); Mean Platelet Volume 7.7 fL (7.0-11.0); Mono # (Auto) 1.3 th/mm3 (0.0-0.9); Mono % (Auto) 12.9 % (0.0-8.0); Neut # (Auto) 7.1 th/mm3 (1.8-7.7); Neut % (Auto) 70.6 % (16.0-70.0); Platelet Count 486 th/mm3 (150-450); Red Blood Count 3.62 mil/mm3 (4.50-5.90); Red Cell Distribution Width 15.6 % (11.6-17.2); White Blood Count 10.1 th/mm3 (4.0-11.0)
--- NOTE | 2018-11-05 14:11 | P.PNIM ---
Subjective Interval history: Follow-up MARTINA. T-max of 100.9. Remains on restraints discussed with nursing gets combative when attended. Physical Exam Vital signs: Last Vital Signs Temp 98.6 F 11/05/18 12:00 Pulse 84 11/05/18 12:00 Resp 20 11/05/18 12:00 BP 132/82 11/05/18 12:00 Pulse Ox 100 11/05/18 12:00 Intake & Output 11/03/18 11/04/18 11/05/18 11/06/18 06:59 06:59 06:59 06:59 Intake Total 1470 / 1470 845 / 845 520 / 520 597 / 597 Output Total 800 / 800 3 / 3 Balance 1470 / 1470 45 / 45 520 / 520 594 / 594 Weight 52.9 kg Narrative: GENERAL: NAD, A&Ox1. On four-point restraints CARDIOVASCULAR: Regular rate and rhythm without murmurs, gallops, or rubs. RESPIRATORY: Breath sounds equal bilaterally. No accessory muscle use. GASTROINTESTINAL: Abdomen soft, non-tender, nondistended. MUSCULOSKELETAL: No cyanosis, or edema. SKIN: Warm and dry. NEURO: No focal neurological deficits. Urinary Catheter Management Indwelling Urethral Catheter: Cath placed during this visit: yes, but has since been removed by the nurse Urethral indwelling: Yes Insertion date: 10/15/18 Insertion time: 14:00 Removal date: 10/21/18 Removal time: 18:00 Condom: Cath placed during this visit: yes Urethral indwelling: Yes Reason for continuing: Not indwelling catheter Insertion date: 10/21/18 Insertion time: 18:00 Results Labs CBC & Chem 7: 11/05/18 11:20 11/05/18 05:45 Labs: Microbiology 10/21/18 12:40 Bronchial Brushings - Left Upper Lobe Fungal Smear - Final 10/21/18 12:40 Bronchial Brushings - Left Upper Lobe Fungal Culture - Preliminary No growth in 2 weeks 10/21/18 12:40 Bronchial Brushings - Left Upper Lobe Acid Fast Bacilli Smear - Final No acid fast bacilli seen 10/21/18 12:40 Bronchial Brushings - Left Upper Lobe Mycobacterial Culture - Preliminary No growth in 2 weeks 10/21/18 12:40 Bronchial Washings - Left Upper Lobe Fungal Smear - Final No fungal elements seen 10/21/18 12:40 Bronchial Washings - Left Upper Lobe Fungal Culture - Preliminary No growth in 2 weeks 10/21/18 12:40 Bronchial Washings - Left Upper Lobe Acid Fast Bacilli Smear - Final Acid Fast Bacilli Seen 10/21/18 12:40 Bronchial Washings - Left Upper Lobe Mycobacterial Culture - Preliminary No growth in 2 weeks Imaging Imaging: Impressions Chest X-Ray 11/05/18 08:43 CONCLUSION: Persistent consolidation and cavitary change in the left upper lung. Assessment and Plan Plan 53-year-old male with past medical history of hypertension, and COPD who presents emergency department with altered mental status found to have traumatic subdural hemorrhage/subarachnoid hemorrhage with skull base fracture, upper gastrointestinal bleed, and left upper lobe cavitary lesion concerning for infectious process. Hypokalemia. Improving Continue potassium replacement p Chronic encephalopathy Delirium Likely related to brain bleed Restraints as needed Low-dose Seroquel Subdural hemorrhage Subarachnoid hemorrhage Status post bur hole intervention Continue Keppra switch to po will clarify with NS dc date Continue neurochecks Moderate encephalopathy on EEG Neurology following Upper left lung cavitary lesion Follow AFB cultures- MARTINA azithromycin, ethambutol and rifampin for MARTINA. Avoid Haldol while he is on azithromycin. Neg HIV test Discontinue isolation. Patient will need supervised setting in order to be able to treat for the mycobacteria. Duration of treatment for MARTINA is between 18 and 24 months. Sputum smear and culture will need to be monitored monthly to check for clearance of the [place] from the sputum and antibiotics is usually continued for 12 months after negative sputum. liver function test need to be monitored weekly while on these antibiotics. Patient will need follow-up with infectious disease physician when discharged. ID following Fever. Repeat CBC shows no leukocytosis. Chest x-ray remains abnormal with persistent constipation and cavitation left upper lung no change from previous. UA has been ordered. Start nebulization and incentive spirometry and monitor Esophagitis Ct PPI Follow CBC DVT prophylaxis SCDs Progress Note: Quality VTE Deep Vein Thrombosis/Pulmonary Embolism Present on Admission: No
[2018-11-05 16:15] LABS: Bacteria,Urine Occasional /hpf; Bilirubin,Urine Negative (Negative); Clarity,Urine Clear (Clear); Color,Urine Amber (Yellw/Straw); Glucose,Urine (UA) Negative (Negative); Leukocyte Esterase,Urine Small (Negative); Mucus,Urine Few /lpf (Occasional); Nitrite,Urine Negative (Negative); Specific Gravity,Urine 1.014 (1.002-1.035); Squamous Epithelial Cell,Urine <1 /hpf (0-5)
[2018-11-06] MEDS: levETIRAcetam 500 MG Tablet PO SCH ×3 (00:25→21:47)
[2018-11-06] MEDS: Sodium Chloride 0.9% 2 ML Flush BID IV.FLUSH SCH ×3 (00:26→21:47)
[2018-11-06] MEDS: QUEtiapine 25 MG Tablet PO SCH ×3 (00:26→21:47)
[2018-11-06 07:25] LABS: Anion Gap 7 meq/L (5-15); Blood Urea Nitrogen 11 mg/dL (7-18); Calcium 8.8 mg/dL (8.5-10.1); Carbon Dioxide 29.1 meq/L (21.0-32.0); Chloride 106 meq/L (98-107); Glomerular Filtration Rate Greater Than 89 mL/min (>89); Glucose,Random 93 mg/dL (74-106); Magnesium 1.7 mg/dL (1.5-2.5); Potassium 4.7 meq/L (3.5-5.1); Sodium 142 meq/L (136-145)
[2018-11-06] MEDS: Azithromycin 250 MG Tablet PO SCH (10:39)
--- NOTE | 2018-11-06 12:48 | P.PNIM ---
Subjective Interval history: Follow-up fever. Patient has no complaints T-max of 102. He is awake but confused oriented to person only. Will alert infectious disease Physical Exam Vital signs: Last Vital Signs Temp 98.5 F 11/06/18 08:35 Pulse 102 H 11/06/18 08:35 Resp 20 11/06/18 08:35 BP 118/78 11/06/18 08:35 Pulse Ox 96 11/06/18 08:35 Intake & Output 11/04/18 11/05/18 11/06/18 11/07/18 06:59 06:59 06:59 06:59 Intake Total 845 / 845 520 / 520 195 / 1956 Output Total 800 / 800 403 / 403 Balance 45 / 45 520 / 520 1554 / 1554 Weight 52.9 kg Narrative: GENERAL: NAD, A&Ox1. On four-point restraints CARDIOVASCULAR: Regular rate and rhythm without murmurs, gallops, or rubs. RESPIRATORY: Breath sounds equal bilaterally. No accessory muscle use. GASTROINTESTINAL: Abdomen soft, non-tender, nondistended. SKIN: Warm and dry. NEURO: No focal neurological deficits. Urinary Catheter Management Indwelling Urethral Catheter: Cath placed during this visit: yes, but has since been removed by the nurse Urethral indwelling: Yes Insertion date: 10/15/18 Insertion time: 14:00 Removal date: 10/21/18 Removal time: 18:00 Condom: Cath placed during this visit: yes Urethral indwelling: Yes Reason for continuing: Not indwelling catheter Insertion date: 10/21/18 Insertion time: 18:00 Results Labs CBC & Chem 7: 11/05/18 11:20 11/06/18 04:52 Labs: Microbiology 10/21/18 12:40 Bronchial Washings - Left Upper Lobe Acid Fast Bacilli Smear - Final Acid Fast Bacilli Seen 10/21/18 12:40 Bronchial Washings - Left Upper Lobe Mycobacterial Culture - Final Mycobacterium intracellulare Assessment and Plan Plan 53-year-old male with past medical history of hypertension, and COPD who presents emergency department with altered mental status found to have traumatic subdural hemorrhage/subarachnoid hemorrhage with skull base fracture, upper gastrointestinal bleed, and left upper lobe cavitary lesion concerning for infectious process. Hypokalemia. Improving Continue potassium replacement Chronic encephalopathy Delirium Likely related to brain bleed Restraints as needed Low-dose Seroquel Subdural hemorrhage Subarachnoid hemorrhage Status post bur hole intervention Continue Keppra switch to po will clarify with NS dc date Continue neurochecks Moderate encephalopathy on EEG Neurology following Upper left lung cavitary lesion Follow AFB cultures- MARTINA azithromycin, ethambutol and rifampin for MARTINA. Avoid Haldol while he is on azithromycin. Neg HIV test Discontinue isolation. Patient will need supervised setting in order to be able to treat for the mycobacteria. Duration of treatment for MARTINA is between 18 and 24 months. Sputum smear and culture will need to be monitored monthly to check for clearance of the [place] from the sputum and antibiotics is usually continued for 12 months after negative sputum. liver function test need to be monitored weekly while on these antibiotics. Patient will need follow-up with infectious disease physician when discharged. ID following Fever. Repeat CBC shows no leukocytosis. Chest x-ray remains abnormal with persistent constipation and cavitation left upper lung no change from previous. UA has been ordered. T-max 102.4. Continue nebulization and incentive spirometry and monitor Esophagitis Ct PPI Follow CBC DVT prophylaxis SCDs Out of bed Progress Note: Quality VTE Deep Vein Thrombosis/Pulmonary Embolism Present on Admission: No
--- NOTE | 2018-11-06 17:37 | P.PN ---
Subjective Interval history: he is confused and on O2 2l Tries to get out of bed. Poor intake. No cough or SOB. Physical Exam Vital signs: Vital Signs 11/05/18 20:00 11/05/18 20:45 11/05/18 20:46 Temperature 98.5 F Pulse Rate 100 H 97 H Respiratory Rate 19 18 Blood Pressure 130/74 Pulse Oximetry 94 L 97 11/06/18 00:00 11/06/18 03:26 11/06/18 04:00 Temperature 98.0 F 97.2 F L Pulse Rate 92 H 80 105 H Respiratory Rate 18 20 20 Blood Pressure 134/65 104/66 Pulse Oximetry 96 94 L 11/06/18 08:35 11/06/18 11:53 Temperature 98.5 F 100.0 F H Pulse Rate 102 H 84 Respiratory Rate 20 16 Blood Pressure 118/78 125/75 Pulse Oximetry 96 98 Intake & Output 11/05/18 11/06/18 11/06/18 18:59 06:59 18:59 Intake Total 1956 / 1956 Output Total 403 / 403 Balance 1554 / 1554 Weight 52.9 kg Intake: Oral 1956 Output: Urine 403 / 403 Other: # Incontinent Voids 4 Date of Last Bowel Movement 11/05/18 11/05/18 # Incontinent Bowel Movements 1 Narrative: GENERAL: NAD,Mid aged W/M On four-point restraints. Confused. CARDIOVASCULAR: Regular rate and rhythm without murmurs, gallops, or rubs. RESPIRATORY: Breath sounds equal bilaterally. Wheeze in left chest. No accessory muscle use. GASTROINTESTINAL: Abdomen soft, non-tender, nondistended. SKIN: Warm and dry. NEURO: No focal neurological deficits. - Urinary Catheter Management Indwelling Urethral Catheter Cath placed during this visit: yes, but has since been removed by the nurse Urethral indwelling: Yes Reason for continuing: Decision to DC catheter Insertion date: 10/15/18 Insertion time: 14:00 Removal date: 10/21/18 Removal time: 18:00 Condom Cath placed during this visit: yes Urethral indwelling: Yes Reason for continuing: Not indwelling catheter Insertion date: 10/21/18 Insertion time: 18:00 Results - Labs CBC & Chem 7: 11/05/18 11:20 11/06/18 04:52 Laboratory Results - last 24 hr 11/06/18 04:52 Sodium 142 Potassium 4.7 Chloride 106 Carbon Dioxide 29.1 Anion Gap 7 BUN 11 Creatinine 0.61 Estimated GFR Greater than 89 Random Glucose 93 Calcium 8.8 Magnesium 1.7 Microbiology 10/21/18 12:40 Bronchial Washings - Left Upper Lobe Acid Fast Bacilli Smear - Final Acid Fast Bacilli Seen 10/21/18 12:40 Bronchial Washings - Left Upper Lobe Mycobacterial Culture - Final Mycobacterium intracellulare Assessment and Plan - Assessment (1) Subdural hematoma, post-traumatic Code(s): S06.5X9A - Traumatic subdural hemorrhage with loss of consciousness of unspecified duration, initial encounter Status: Acute (2) Intracerebral hemorrhage Code(s): I61.9 - Nontraumatic intracerebral hemorrhage, unspecified Status: Acute (3) COPD (chronic obstructive pulmonary disease) Code(s): J44.9 - Chronic obstructive pulmonary disease, unspecified Status: Acute (4) Cavitating mass of lung Code(s): J98.4 - Other disorders of lung Status: Acute (5) Pneumonia Code(s): J18.9 - Pneumonia, unspecified organism Status: Acute (6) GI bleed Code(s): K92.2 - Gastrointestinal hemorrhage, unspecified Status: Acute (7) Anemia Code(s): D64.9 - Anemia, unspecified Status: Acute - Plan 1. CXR in am 2. Continue antibiotics per ID Zithromax , Ethambutol, Rifampin 3. Duoneb nebs tid. 4. Labs in am 5. Soft diet as tolerated 6. PT for activity.
[2018-11-07 04:49] LABS: Anion Gap 10 meq/L (5-15); Blood Urea Nitrogen 14 mg/dL (7-18); Calcium 9.1 mg/dL (8.5-10.1); Carbon Dioxide 28.5 meq/L (21.0-32.0); Chloride 103 meq/L (98-107); Glomerular Filtration Rate Greater Than 89 mL/min (>89); Glucose,Random 101 mg/dL (74-106); Magnesium 1.7 mg/dL (1.5-2.5); Potassium 4.6 meq/L (3.5-5.1); Sodium 141 meq/L (136-145)
[2018-11-07] MEDS: Azithromycin 250 MG Tablet PO SCH (09:28)
[2018-11-07] MEDS: QUEtiapine 25 MG Tablet PO SCH ×2 (09:28→21:46)
[2018-11-07] MEDS: Sodium Chloride 0.9% 2 ML Flush BID IV.FLUSH SCH ×2 (09:28→21:46)
[2018-11-07] MEDS: levETIRAcetam 500 MG Tablet PO SCH ×2 (09:28→21:46)
--- NOTE | 2018-11-07 12:08 | P.PNID ---
Subjective Remarks: Patient is comfortable and converses without difficulty. Greg confused. Pressure spiked to 102. Not coughing. Denies chest pain. No shortness of breath. 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 is a 53-year-old white male, who was brought to the emergency department in an unresponsive state. The patient was noted to have a skull fracture and a subdural hemorrhage at the right frontal region. He was intubated. He was taken to surgery, and underwent bur hole with evacuation of subarachnoid and subdural hemorrhage. The patient is unresponsive on the ventilator. Information is obtained from the medical record. No history is available at this time. The patient had elevated temperature of 102 on admission. Temperatures today have decreased, and are in normal range; however , it was elevated most of yesterday evening. White blood cell count is elevated at 20.3. Chest x-ray showed ill-defined parenchymal and pleural opacity in the left upper lobe. CT scan of the chest shows a prominent cavitary mass along the left anterolateral upper lung, and also patchy areas of consolidation at the posterior left lower lobe with some lesser degree of cavitary change. Small nodules measuring less than 5 mm were seen at the anterior left lower lobe, and at the right middle lobe. Past history of multiple incarcerations. Antibiotics: Ceftriaxone IV. Rifampin Ethambutol Azithromycin Lines: Lines ok Past Medical History: reviewed Allergies/Adverse Reactions: Allergies lisinopril Allergy (Intermediate, Verified 10/15/18 13:39) hallucinations amlodipine Allergy (Unknown, Verified 10/15/18 13:38) headaches Objective Vital Signs 11/06/18 20:00 11/06/18 20:51 11/07/18 00:00 Temperature 102.1 F H 98.4 F Pulse Rate 95 H 85 84 Respiratory Rate 18 18 16 Blood Pressure 117/82 108/69 Pulse Oximetry 94 L 97 11/07/18 03:38 11/07/18 04:00 11/07/18 07:43 Temperature 99.0 F 99.1 F Pulse Rate 71 95 H 88 Respiratory Rate 15 19 18 Blood Pressure 119/77 116/73 Pulse Oximetry 95 99 11/07/18 09:57 Temperature Pulse Rate 93 H Respiratory Rate 18 Blood Pressure Pulse Oximetry Intake & Output 11/06/18 11/07/18 11/07/18 18:59 06:59 18:59 Intake Total 360 / 360 Output Total 2000 / 2000 Balance -1640 / -1640 Weight 52.9 kg Intake: Oral 360 / 360 Tube Feeding 0 / 0 Tube Irrigant 0 / 0 Water Bolus Amount 0 / 0 Output: Urine 400 / 400 Urine Amount (Catheter) 1600 / 1600 Condom 1600 / 1600 Gastric Drainage 0 / 0 Oral 0 / 0 Other: # Voids 6 # Incontinent Voids 4 3 Date of Last Bowel Movement 11/05/18 # Bowel Movements 2 # Incontinent Bowel Movements 1 10/21/18 12:40 Bronchial Washings - Left Upper Lobe Acid Fast Bacilli Smear - Final Acid Fast Bacilli Seen 10/21/18 12:40 Bronchial Washings - Left Upper Lobe Mycobacterial Culture - Final Mycobacterium intracellulare 10/21/18 12:40 Bronchial Brushings - Left Upper Lobe Fungal Smear - Final 10/21/18 12:40 Bronchial Brushings - Left Upper Lobe Fungal Culture - Preliminary No growth in 2 weeks 10/21/18 12:40 Bronchial Brushings - Left Upper Lobe Acid Fast Bacilli Smear - Final No acid fast bacilli seen 10/21/18 12:40 Bronchial Brushings - Left Upper Lobe Mycobacterial Culture - Preliminary No growth in 2 weeks 10/21/18 12:40 Bronchial Washings - Left Upper Lobe Fungal Smear - Final No fungal elements seen 10/21/18 12:40 Bronchial Washings - Left Upper Lobe Fungal Culture - Preliminary No growth in 2 weeks Lab - Hematology Results 11/05/18 11:20 WBC 10.1 RBC 3.62 L Hgb 10.5 L Hct 32.4 L MCV 89.7 MCH 29.0 MCHC 32.4 RDW 15.6 Plt Count 486 H D MPV 7.7 Neut % (Auto) 70.6 H Lymph % (Auto) 12.7 [place] % (Auto) 12.9 H Eos % (Auto) 2.5 Baso % (Auto) 1.3 Neut # (Auto) 7.1 Lymph # (Auto) 1.3 [place] # (Auto) 1.3 H Eos # (Auto) 0.3 Baso # (Auto) 0.1 WBC Differential . Differential Comment Auto diff final Lab - Chemistry Results 11/06/18 11/07/18 04:52 02:30 Sodium 142 141 Potassium 4.7 4.6 Chloride 106 103 Carbon Dioxide 29.1 28.5 Anion Gap 7 10 BUN 11 14 Creatinine 0.61 0.68 Estimated GFR Greater than 89 Greater than 89 Random Glucose 93 101 Calcium 8.8 9.1 Magnesium 1.7 1.7 Imaging: ITS Impressions Cervical Spine CT 10/15/18 13:26 CONCLUSION: 1. No acute fracture or subluxation. 2. Partially imaged large cavitary lesion in the left lung apex. Chest CT to follow. 3. Multilevel degenerative spondylosis of the cervical spine. Abdomen/Pelvis CT 10/15/18 15:27 CONCLUSION: 1. Extensive wall thickening urinary bladder, neoplastic process should be excluded. 2. Diverticulosis without diverticulitis. 3. Bilateral nonobstructing renal calculi. 4. Left basilar infiltrate. Chest CT 10/15/18 15:27 CONCLUSION: 1. Prominent cavitary mass along the anterior lateral left upper lung. This could be inflammatory/infectious versus neoplastic. It is nonspecific. 2. Patchy areas of consolidation seen at the posterior left lower lung with some lesser degree of cavitary change. This most closely resembles postinflammatory change although is nonspecific. 3. Small nodules measuring less than 5 mm at the anterior left lower lung and at the right middle lobe. These are nonspecific. They can be followed. 4. Significant adenopathy is not seen. Carotid Doppler Study 10/16/18 10:06 CONCLUSION: Negative examination for a hemodynamically significant carotid stenosis. Gianni Raymundo MD FACR Head CT 10/17/18 00:00 CONCLUSION: 1. Stable exam as detailed above. . Knee X-Ray 10/21/18 00:00 CONCLUSION: 1. Chronic irregularity of the superior pole along the patella with apparent ossification. There is adjacent mild soft tissue prominence. 2. Remote postsurgical changes in the proximal tibia. Chest X-Ray 11/05/18 08:43 CONCLUSION: Persistent consolidation and cavitary change in the left upper lung. Physical Exam: GENERAL: No acute distress. HEENT: Pupils reactive to light. Extraocular movements intact. No icterus. Oropharynx mucosa slightly dry. NECK: Supple without adenopathy. No swelling. LUNGS: Coarse breath sounds. HEART: Regular S1-S2 without murmurs rubs or gallops. ABDOMEN: Bowel sounds present, soft, no tenderness. EXTREMITIES: No clubbing cyanosis or edema. Diffuse muscle wasting. SKIN: No diffuse rash. NEUROLOGIC: No gross focal finding PSYCH: Calm. Assessment and Plan - Plan Pulmonary MARTINA disease. Left upper lobe cavitary lesion-mass. 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 Encephalopathy Traumatic subdural hemorrhage/subarachnoid hemorrhage with skull base fracture Anemia-most likely acute on chronic blood loss related Sepsis. Stable. Fever. He appears clinically stable. Does not look toxic. Possibility of drug fever versus infection. Recommend: Continue azithromycin, ethambutol and rifampin for MARTINA. Avoid Haldol while he is on azithromycin. Urine eosinophil. Obtain blood culture if he spikes again. Patient will need supervised setting in order to be able to treat for the mycobacteria. Duration of treatment for MARTINA is between 18 and 24 months. Sputum smear and culture will need to be monitored monthly to check for clearance of the MARTINA from the sputum and antibiotics is usually continued for 12 months after negative sputum. Liver function test need to be monitored weekly while on these antibiotics. Patient will need follow-up with infectious disease physician when discharged.
--- NOTE | 2018-11-07 12:42 | P.PNIM ---
Subjective Interval history: Follow-up fever. T-max of 102. Patient is alert and oriented to person only. He has no complaints. Denies cough, UTI symptoms and diarrhea. Discussed with nursing and infectious disease Physical Exam Vital signs: Last Vital Signs Temp 99.0 F 11/07/18 11:25 Pulse 118 H 11/07/18 11:25 Resp 20 11/07/18 11:25 BP 120/77 11/07/18 11:25 Pulse Ox 98 11/07/18 11:25 Intake & Output 11/05/18 11/06/18 11/07/18 11/08/18 06:59 06:59 06:59 06:59 Intake Total 520 / 520 1957 / 1957 360 / 360 Output Total 403 / 403 1999 / 1999 Balance 520 / 520 1554 / 1554 -1640 / -1640 Weight 52.9 kg 52.9 kg Narrative: GENERAL: NAD,Mid aged W/M On four-point restraints. Confused. CARDIOVASCULAR: Regular rate and rhythm without murmurs, gallops, or rubs. RESPIRATORY: Breath sounds equal bilaterally. Wheeze in left chest. No accessory muscle use. GASTROINTESTINAL: Abdomen soft, non-tender, nondistended. SKIN: Warm and dry. NEURO: No focal neurological deficits. Urinary Catheter Management Indwelling Urethral Catheter: Cath placed during this visit: yes, but has since been removed by the nurse Urethral indwelling: Yes Insertion date: 10/15/18 Insertion time: 14:00 Removal date: 10/21/18 Removal time: 18:00 Condom: Cath placed during this visit: yes Urethral indwelling: Yes Reason for continuing: Not indwelling catheter Insertion date: 10/21/18 Insertion time: 18:00 Results Labs CBC & Chem 7: 11/05/18 11:20 11/07/18 02:30 Labs: Microbiology 10/21/18 12:40 Bronchial Washings - Left Upper Lobe Acid Fast Bacilli Smear - Final Acid Fast Bacilli Seen 10/21/18 12:40 Bronchial Washings - Left Upper Lobe Mycobacterial Culture - Final Mycobacterium intracellulare Assessment and Plan Plan 53-year-old male with past medical history of hypertension, and COPD who presents emergency department with altered mental status found to have traumatic subdural hemorrhage/subarachnoid hemorrhage with skull base fracture, upper gastrointestinal bleed, and left upper lobe cavitary lesion concerning for infectious process. Hypokalemia. Improving Continue potassium replacement Chronic encephalopathy Delirium Likely related to brain bleed Restraints as needed Low-dose Seroquel Subdural hemorrhage Subarachnoid hemorrhage Status post bur hole intervention Continue Keppra switch to po will clarify with NS dc date Continue neurochecks Moderate encephalopathy on EEG Neurology following Upper left lung cavitary lesion Follow AFB cultures- MARTINA azithromycin, ethambutol and rifampin for MARTINA. Avoid Haldol while he is on azithromycin. Neg HIV test Discontinue isolation. Patient will need supervised setting in order to be able to treat for the mycobacteria. Duration of treatment for MARTINA is between 18 and 24 months. Sputum smear and culture will need to be monitored monthly to check for clearance of the MA from the sputum and antibiotics is usually continued for 12 months after negative sputum. liver function test need to be monitored weekly while on these antibiotics. Patient will need follow-up with infectious disease physician when discharged. ID following Fever. Repeat CBC shows no leukocytosis. Chest x-ray remains abnormal with persistent constipation and cavitation left upper lung no change from previous. UA unremarkable. Possible drug fever. Continue nebulization and incentive spirometry and monitor Esophagitis Ct PPI Follow CBC DVT prophylaxis SCDs Out of bed Progress Note: Quality VTE Deep Vein Thrombosis/Pulmonary Embolism Present on Admission: No
[2018-11-07] MEDS: Clotrimazole 1% Cream 15 GM Tube TOPICAL SCH ×2 (13:59→17:39)
--- NOTE | 2018-11-07 17:55 | P.PN ---
Subjective Interval history: Still poor intake and confused. No fever. off O2. CXR shows a Cavitary Left lung opacity. Physical Exam Vital signs: Vital Signs 11/06/18 20:00 11/06/18 20:51 11/07/18 00:00 Temperature 102.1 F H 98.4 F Pulse Rate 95 H 85 84 Respiratory Rate 18 18 16 Blood Pressure 117/82 108/69 Pulse Oximetry 94 L 97 11/07/18 03:38 11/07/18 03:40 11/07/18 04:00 Temperature 98.9 F 99.0 F Pulse Rate 71 99 H 95 H Respiratory Rate 15 18 19 Blood Pressure 120/72 119/77 Pulse Oximetry 99 95 11/07/18 07:43 11/07/18 09:57 11/07/18 11:25 Temperature 99.1 F 99.0 F Pulse Rate 88 93 H 118 H Respiratory Rate 18 18 20 Blood Pressure 116/73 120/77 Pulse Oximetry 99 98 Intake & Output 11/06/18 11/07/18 11/07/18 18:59 06:59 18:59 Intake Total 360 / 360 Output Total 1999 / 1999 Balance -1640 / -1640 Weight 52.9 kg Intake: Oral 360 / 360 Tube Feeding 0 / 0 Tube Irrigant 0 / 0 Water Bolus Amount 0 / 0 Output: Urine 400 / 400 Urine Amount (Catheter) 1600 / 1600 Condom 1600 / 1600 Gastric Drainage 0 / 0 Oral 0 / 0 Other: # Voids 6 # Incontinent Voids 4 3 Date of Last Bowel Movement 11/05/18 # Bowel Movements 2 # Incontinent Bowel Movements 1 Narrative: GENERAL: NAD,Mid aged W/M alert Confused. CARDIOVASCULAR: Regular rate and rhythm without murmurs, gallops, or rubs. RESPIRATORY: Breath sounds equal bilaterally. Wheeze in left chest. No accessory muscle use. GASTROINTESTINAL: Abdomen soft, non-tender, nondistended. SKIN: Warm and dry. NEURO: Confused but No focal neurological deficits. - Urinary Catheter Management Indwelling Urethral Catheter Cath placed during this visit: yes, but has since been removed by the nurse Urethral indwelling: Yes Reason for continuing: Decision to DC catheter Insertion date: 10/15/18 Insertion time: 14:00 Removal date: 10/21/18 Removal time: 18:00 Condom Cath placed during this visit: yes Urethral indwelling: Yes Reason for continuing: Not indwelling catheter Insertion date: 10/21/18 Insertion time: 18:00 Results - Labs CBC & Chem 7: 11/05/18 11:20 11/07/18 02:30 Laboratory Results - last 24 hr 11/07/18 02:30 Sodium 141 Potassium 4.6 Chloride 103 Carbon Dioxide 28.5 Anion Gap 10 BUN 14 Creatinine 0.68 Estimated GFR Greater than 89 Random Glucose 101 Calcium 9.1 Magnesium 1.7 Assessment and Plan - Assessment (1) Subdural hematoma, post-traumatic Code(s): S06.5X9A - Traumatic subdural hemorrhage with loss of consciousness of unspecified duration, initial encounter Status: Acute (2) Intracerebral hemorrhage Code(s): I61.9 - Nontraumatic intracerebral hemorrhage, unspecified Status: Acute (3) COPD (chronic obstructive pulmonary disease) Code(s): J44.9 - Chronic obstructive pulmonary disease, unspecified Status: Acute (4) Cavitating mass of lung Code(s): J98.4 - Other disorders of lung Status: Acute (5) Pneumonia Code(s): J18.9 - Pneumonia, unspecified organism Status: Acute (6) GI bleed Code(s): K92.2 - Gastrointestinal hemorrhage, unspecified Status: Acute (7) Anemia Code(s): D64.9 - Anemia, unspecified Status: Acute (8) Mycobacterium avium-intracellulare infection Code(s): A31.0 - Pulmonary mycobacterial infection Status: Acute - Plan 1. Up In chair as tolerated 2. Continue antibiotics per ID Zithromax , Ethambutol, Rifampin 3. Duoneb nebs tid. 4. CXR in am 5. Soft diet as tolerated 6. PT for activity.
[2018-11-08 05:31] LABS: Baso # (Auto) 0.1 th/mm3 (0.0-0.2); Baso % (Auto) 0.8 % (0.0-2.0); Eos # (Auto) 0.4 th/mm3 (0.0-0.4); Eos % (Auto) 3.8 % (0.0-4.0); Hematocrit 26.6 % (39.0-51.0); Hemoglobin 9.5 gm/dL (13.0-17.0); Lymph # (Auto) 2.1 th/mm3 (1.0-4.8); Lymph % (Auto) 18.7 % (9.0-44.0); Mean Corpuscular HGB Conc 35.7 % (32.0-36.0); Mean Corpuscular Hemoglobin 30.6 pg (27.0-34.0); Mean Corpuscular Volume 85.8 fL (80.0-100.0); Mean Platelet Volume 7.3 fL (7.0-11.0); Mono # (Auto) 1.1 th/mm3 (0.0-0.9); Mono % (Auto) 9.5 % (0.0-8.0); Neut # (Auto) 7.5 th/mm3 (1.8-7.7); Neut % (Auto) 67.2 % (16.0-70.0); Platelet Count 396 th/mm3 (150-450); Red Cell Distribution Width 15.8 % (11.6-17.2); White Blood Count 11.2 th/mm3 (4.0-11.0)
[2018-11-08 06:03] LABS: Anion Gap 7 meq/L (5-15); Blood Urea Nitrogen 17 mg/dL (7-18); Calcium 8.7 mg/dL (8.5-10.1); Carbon Dioxide 30.1 meq/L (21.0-32.0); Chloride 102 meq/L (98-107); Glomerular Filtration Rate Greater Than 89 mL/min (>89); Glucose,Random 121 mg/dL (74-106); Magnesium 1.9 mg/dL (1.5-2.5); Potassium 4.3 meq/L (3.5-5.1); Sodium 139 meq/L (136-145)
[2018-11-08] MEDS: QUEtiapine 25 MG Tablet PO SCH ×2 (09:01→22:40)
[2018-11-08] MEDS: Azithromycin 250 MG Tablet PO SCH (09:01)
[2018-11-08] MEDS: levETIRAcetam 500 MG Tablet PO SCH ×2 (09:01→22:39)
[2018-11-08] MEDS: Sodium Chloride 0.9% 2 ML Flush BID IV.FLUSH SCH ×2 (09:02→22:39)
[2018-11-08] MEDS: Clotrimazole 1% Cream 15 GM Tube TOPICAL SCH ×3 (09:02→17:59)
--- NOTE | 2018-11-08 11:09 | P.PNID ---
Subjective Remarks: Patient is comfortable and converses without difficulty. He is conversing and fluent. I cannot tell whether the inflammation is telling me is accurate. 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 Temperature is normal. Not coughing. Denies chest pain. No shortness of breath. 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 is a 53-year-old white male, who was brought to the emergency department in an unresponsive state. The patient was noted to have a skull fracture and a subdural hemorrhage at the right frontal region. He was intubated. He was taken to surgery, and underwent bur hole with evacuation of subarachnoid and subdural hemorrhage. The patient is unresponsive on the ventilator. Information is obtained from the medical record. No history is available at this time. The patient had elevated temperature of 102 on admission. Temperatures today have decreased, and are in normal range; however , it was elevated most of yesterday evening. White blood cell count is elevated at 20.3. Chest x-ray showed ill-defined parenchymal and pleural opacity in the left upper lobe. CT scan of the chest shows a prominent cavitary mass along the left anterolateral upper lung, and also patchy areas of consolidation at the posterior left lower lobe with some lesser degree of cavitary change. Small nodules measuring less than 5 mm were seen at the anterior left lower lobe, and at the right middle lobe. Past history of multiple incarcerations. Antibiotics: Rifampin Ethambutol Azithromycin Lines: Lines ok Past Medical History: reviewed Allergies/Adverse Reactions: Allergies lisinopril Allergy (Intermediate, Verified 10/15/18 13:39) hallucinations amlodipine Allergy (Unknown, Verified 10/15/18 13:38) headaches Objective Vital Signs 11/07/18 11:25 11/07/18 15:40 11/07/18 20:35 Temperature 99.0 F 98.9 F 97.9 F Pulse Rate 118 H 99 H 104 H Respiratory Rate 20 18 20 Blood Pressure 120/77 120/72 113/75 Pulse Oximetry 98 99 96 11/07/18 21:01 11/08/18 01:04 11/08/18 01:41 Temperature 97.7 F Pulse Rate 104 H 93 H Respiratory Rate 20 20 16 Blood Pressure 104/67 Pulse Oximetry 95 11/08/18 03:18 11/08/18 03:19 11/08/18 03:29 Temperature Pulse Rate 101 H Respiratory Rate 23 16 Blood Pressure Pulse Oximetry 96 11/08/18 04:55 11/08/18 07:11 11/08/18 08:41 Temperature 98.0 F 99.0 F Pulse Rate 92 H 86 86 Respiratory Rate 20 16 14 Blood Pressure 104/62 108/65 Pulse Oximetry 96 96 98 Intake & Output 11/07/18 11/08/18 11/08/18 18:59 06:59 18:59 Weight 52.9 kg Other: # Voids 3 # Incontinent Voids 2 Date of Last Bowel Movement 11/06/18 10/21/18 12:40 Bronchial Washings - Left Upper Lobe Acid Fast Bacilli Smear - Final Acid Fast Bacilli Seen 10/21/18 12:40 Bronchial Washings - Left Upper Lobe Mycobacterial Culture - Final Mycobacterium intracellulare Lab - Hematology Results 11/08/18 05:08 WBC 11.2 H RBC 3.10 L Hgb 9.5 L Hct 26.6 L MCV 85.8 D MCH 30.6 MCHC 35.7 RDW 15.8 Plt Count 396 MPV 7.3 Neut % (Auto) 67.2 Lymph % (Auto) 18.7 [place] % (Auto) 9.5 H Eos % (Auto) 3.8 Baso % (Auto) 0.8 Neut # (Auto) 7.5 Lymph # (Auto) 2.1 [place] # (Auto) 1.1 H Eos # (Auto) 0.4 Baso # (Auto) 0.1 WBC Differential . Differential Comment Auto diff final Lab - Chemistry Results 11/07/18 11/08/18 02:30 05:08 Sodium 141 139 Potassium 4.6 4.3 Chloride 103 102 Carbon Dioxide 28.5 30.1 Anion Gap 10 7 BUN 14 17 Creatinine 0.68 0.56 L Estimated GFR Greater than 89 Greater than 89 Random Glucose 101 121 H Calcium 9.1 8.7 Magnesium 1.7 1.9 Imaging: ITS Impressions Cervical Spine CT 10/15/18 13:26 CONCLUSION: 1. No acute fracture or subluxation. 2. Partially imaged large cavitary lesion in the left lung apex. Chest CT to follow. 3. Multilevel degenerative spondylosis of the cervical spine. Abdomen/Pelvis CT 10/15/18 15:27 CONCLUSION: 1. Extensive wall thickening urinary bladder, neoplastic process should be excluded. 2. Diverticulosis without diverticulitis. 3. Bilateral nonobstructing renal calculi. 4. Left basilar infiltrate. Chest CT 10/15/18 15:27 CONCLUSION: 1. Prominent cavitary mass along the anterior lateral left upper lung. This could be inflammatory/infectious versus neoplastic. It is nonspecific. 2. Patchy areas of consolidation seen at the posterior left lower lung with some lesser degree of cavitary change. This most closely resembles postinflammatory change although is nonspecific. 3. Small nodules measuring less than 5 mm at the anterior left lower lung and at the right middle lobe. These are nonspecific. They can be followed. 4. Significant adenopathy is not seen. Carotid Doppler Study 10/16/18 10:06 CONCLUSION: Negative examination for a hemodynamically significant carotid stenosis. Gianni Raymundo MD FACR Head CT 10/17/18 00:00 CONCLUSION: 1. Stable exam as detailed above. . Knee X-Ray 10/21/18 00:00 CONCLUSION: 1. Chronic irregularity of the superior pole along the patella with apparent ossification. There is adjacent mild soft tissue prominence. 2. Remote postsurgical changes in the proximal tibia. Chest X-Ray 11/05/18 08:43 CONCLUSION: Persistent consolidation and cavitary change in the left upper lung. Physical Exam: GENERAL: No acute distress. Awake and alert. HEENT: Pupils reactive to light. Extraocular movements intact. No icterus. Oropharynx mucosa slightly dry. NECK: Supple without adenopathy. No swelling. LUNGS: Decreased breath sounds. HEART: Regular S1-S2 without murmurs rubs or gallops. ABDOMEN: Bowel sounds present, soft, no tenderness. EXTREMITIES: No clubbing cyanosis or edema. Diffuse muscle wasting. SKIN: No diffuse rash. NEUROLOGIC: No gross focal finding PSYCH: Calm. Assessment and Plan - Plan Pulmonary MARTINA disease. Left upper lobe cavitary lesion-mass. Encephalopathy improved. Traumatic subdural hemorrhage/subarachnoid hemorrhage with skull base fracture Anemia-most likely acute on chronic blood loss related Sepsis. Stable. Fever. Questionable etiology. Does not look toxic. Possibility of drug fever versus infection. Recommend: Continue azithromycin, ethambutol and rifampin for MARTINA. Avoid Haldol while he is on azithromycin. Obtain blood culture if he spikes again. Patient will need supervised setting in order to be able to treat for the mycobacteria in terms of medicine administration. It is very important that he take his medicines on a daily basis. Duration of treatment for MARTINA is between 18 and 24 months. Sputum smear and culture will need to be monitored monthly to check for clearance of the MARTINA from the sputum and antibiotics is usually continued for 12 months after negative sputum. Liver function test need to be monitored weekly while on these antibiotics. Patient will need follow-up with infectious disease physician when discharged. Okay for him to be discharged from infectious disease standpoint when above is arranged.
--- NOTE | 2018-11-08 12:23 | P.PN ---
Subjective Interval history: he is confused and off O2. No SOB but has some cough. labs OK On therapy for MARTINA. Physical Exam Vital signs: Vital Signs 11/07/18 15:40 11/07/18 20:35 11/07/18 21:01 Temperature 98.9 F 97.9 F Pulse Rate 99 H 104 H 104 H Respiratory Rate 18 20 20 Blood Pressure 120/72 113/75 Pulse Oximetry 99 96 11/08/18 01:04 11/08/18 01:41 11/08/18 03:18 Temperature 97.7 F Pulse Rate 93 H 101 H Respiratory Rate 20 16 23 Blood Pressure 104/67 Pulse Oximetry 95 11/08/18 03:19 11/08/18 03:29 11/08/18 04:55 Temperature 98.0 F Pulse Rate 92 H Respiratory Rate 16 20 Blood Pressure 104/62 Pulse Oximetry 96 96 11/08/18 07:11 11/08/18 08:41 Temperature 99.0 F Pulse Rate 86 86 Respiratory Rate 16 14 Blood Pressure 108/65 Pulse Oximetry 96 98 Intake & Output 11/07/18 11/08/18 11/08/18 18:59 06:59 18:59 Weight 52.9 kg Other: # Voids 3 # Incontinent Voids 2 Date of Last Bowel Movement 11/06/18 Narrative: GENERAL: NAD,Mid aged W/M alert Confused. CARDIOVASCULAR: Regular rate and rhythm without murmurs, gallops, or rubs. RESPIRATORY: Breath sounds equal bilaterally. Wheeze in left chest. No accessory muscle use. GASTROINTESTINAL: Abdomen soft, non-tender, nondistended. SKIN: Warm and dry.Scars over arms. NEURO: Confused but No focal neurological deficits. - Urinary Catheter Management Indwelling Urethral Catheter Cath placed during this visit: yes, but has since been removed by the nurse Urethral indwelling: Yes Reason for continuing: Decision to DC catheter Insertion date: 10/15/18 Insertion time: 14:00 Removal date: 10/21/18 Removal time: 18:00 Condom Cath placed during this visit: yes Urethral indwelling: Yes Reason for continuing: Not indwelling catheter Insertion date: 10/21/18 Insertion time: 18:00 Results - Labs CBC & Chem 7: 11/08/18 05:08 11/08/18 05:08 Laboratory Results - last 24 hr 11/07/18 11/08/1811/08/18 19:33 05:08 05:08 WBC 11.2 H RBC 3.10 L Hgb 9.5 L Hct 26.6 L MCV 85.8 D MCH 30.6 MCHC 35.7 RDW 15.8 Plt Count 396 MPV 7.3 Neut % (Auto) 67.2 Lymph % (Auto) 18.7 [place] % (Auto) 9.5 H Eos % (Auto) 3.8 Baso % (Auto) 0.8 Neut # (Auto) 7.5 Lymph # (Auto) 2.1 [place] # (Auto) 1.1 H Eos # (Auto) 0.4 Baso # (Auto) 0.1 WBC Differential . Differential Comment Auto diff final Sodium 139 Potassium 4.3 Chloride 102 Carbon Dioxide 30.1 Anion Gap 7 BUN 17 Creatinine 0.56 L Estimated GFR Greater than 89 Random Glucose 121 H Calcium 8.7 Magnesium 1.9 Urine Eosinophils 0-2 H Assessment and Plan - Assessment (1) Subdural hematoma, post-traumatic Code(s): S06.5X9A - Traumatic subdural hemorrhage with loss of consciousness of unspecified duration, initial encounter Status: Acute (2) Intracerebral hemorrhage Code(s): I61.9 - Nontraumatic intracerebral hemorrhage, unspecified Status: Acute (3) COPD (chronic obstructive pulmonary disease) Code(s): J44.9 - Chronic obstructive pulmonary disease, unspecified Status: Acute (4) Cavitating mass of lung Code(s): J98.4 - Other disorders of lung Status: Acute (5) Pneumonia Code(s): J18.9 - Pneumonia, unspecified organism Status: Acute (6) GI bleed Code(s): K92.2 - Gastrointestinal hemorrhage, unspecified Status: Acute (7) Anemia Code(s): D64.9 - Anemia, unspecified Status: Acute (8) Mycobacterium avium-intracellulare infection Code(s): A31.0 - Pulmonary mycobacterial infection Status: Acute - Plan 1. Up In chair as tolerated 2. Continue antibiotics per ID Zithromax , Ethambutol, Rifampin 3. D/C Duoneb nebs 4. Albuterol inhaler 2 Puffs QID PRN 5. Soft diet as tolerated 6. PT for activity.
--- NOTE | 2018-11-08 12:35 | P.PNID ---
Subjective Remarks: Patient is comfortable and converses without difficulty. He is conversing and fluent. I cannot tell whether the information he is telling me is accurate. 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 Temperature is normal. Not coughing. Denies chest pain. No shortness of breath. 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 is a 53-year-old white male, who was brought to the emergency department in an unresponsive state. The patient was noted to have a skull fracture and a subdural hemorrhage at the right frontal region. He was intubated. He was taken to surgery, and underwent bur hole with evacuation of subarachnoid and subdural hemorrhage. The patient is unresponsive on the ventilator. Information is obtained from the medical record. No history is available at this time. The patient had elevated temperature of 102 on admission. Temperatures today have decreased, and are in normal range; however , it was elevated most of yesterday evening. White blood cell count is elevated at 20.3. Chest x-ray showed ill-defined parenchymal and pleural opacity in the left upper lobe. CT scan of the chest shows a prominent cavitary mass along the left anterolateral upper lung, and also patchy areas of consolidation at the posterior left lower lobe with some lesser degree of cavitary change. Small nodules measuring less than 5 mm were seen at the anterior left lower lobe, and at the right middle lobe. Past history of multiple incarcerations. Antibiotics: Rifampin Ethambutol Azithromycin Lines: Lines ok Past Medical History: reviewed Allergies/Adverse Reactions: Allergies lisinopril Allergy (Intermediate, Verified 10/15/18 13:39) hallucinations amlodipine Allergy (Unknown, Verified 10/15/18 13:38) headaches Objective Vital Signs 11/07/18 15:40 11/07/18 20:35 11/07/18 21:01 Temperature 98.9 F 97.9 F Pulse Rate 99 H 104 H 104 H Respiratory Rate 18 20 20 Blood Pressure 120/72 113/75 Pulse Oximetry 99 96 11/08/18 01:04 11/08/18 01:41 11/08/18 03:18 Temperature 97.7 F Pulse Rate 93 H 101 H Respiratory Rate 20 16 23 Blood Pressure 104/67 Pulse Oximetry 95 11/08/18 03:19 11/08/18 03:29 11/08/18 04:55 Temperature 98.0 F Pulse Rate 92 H Respiratory Rate 16 20 Blood Pressure 104/62 Pulse Oximetry 96 96 11/08/18 07:11 11/08/18 08:41 Temperature 99.0 F Pulse Rate 86 86 Respiratory Rate 16 14 Blood Pressure 108/65 Pulse Oximetry 96 98 Intake & Output 11/07/18 11/08/18 11/08/18 18:59 06:59 18:59 Weight 52.9 kg Other: # Voids 3 # Incontinent Voids 2 Date of Last Bowel Movement 11/06/18 10/21/18 12:40 Bronchial Washings - Left Upper Lobe Acid Fast Bacilli Smear - Final Acid Fast Bacilli Seen 10/21/18 12:40 Bronchial Washings - Left Upper Lobe Mycobacterial Culture - Final Mycobacterium intracellulare Lab - Hematology Results 11/08/18 05:08 WBC 11.2 H RBC 3.10 L Hgb 9.5 L Hct 26.6 L MCV 85.8 D MCH 30.6 MCHC 35.7 RDW 15.8 Plt Count 396 MPV 7.3 Neut % (Auto) 67.2 Lymph % (Auto) 18.7 [place] % (Auto) 9.5 H Eos % (Auto) 3.8 Baso % (Auto) 0.8 Neut # (Auto) 7.5 Lymph # (Auto) 2.1 [place] # (Auto) 1.1 H Eos # (Auto) 0.4 Baso # (Auto) 0.1 WBC Differential . Differential Comment Auto diff final Lab - Chemistry Results 11/07/18 11/08/18 02:30 05:08 Sodium 141 139 Potassium 4.6 4.3 Chloride 103 102 Carbon Dioxide 28.5 30.1 Anion Gap 10 7 BUN 14 17 Creatinine 0.68 0.56 L Estimated GFR Greater than 89 Greater than 89 Random Glucose 101 121 H Calcium 9.1 8.7 Magnesium 1.7 1.9 Imaging: ITS Impressions Cervical Spine CT 10/15/18 13:26 CONCLUSION: 1. No acute fracture or subluxation. 2. Partially imaged large cavitary lesion in the left lung apex. Chest CT to follow. 3. Multilevel degenerative spondylosis of the cervical spine. Abdomen/Pelvis CT 10/15/18 15:27 CONCLUSION: 1. Extensive wall thickening urinary bladder, neoplastic process should be excluded. 2. Diverticulosis without diverticulitis. 3. Bilateral nonobstructing renal calculi. 4. Left basilar infiltrate. Chest CT 10/15/18 15:27 CONCLUSION: 1. Prominent cavitary mass along the anterior lateral left upper lung. This could be inflammatory/infectious versus neoplastic. It is nonspecific. 2. Patchy areas of consolidation seen at the posterior left lower lung with some lesser degree of cavitary change. This most closely resembles postinflammatory change although is nonspecific. 3. Small nodules measuring less than 5 mm at the anterior left lower lung and at the right middle lobe. These are nonspecific. They can be followed. 4. Significant adenopathy is not seen. Carotid Doppler Study 10/16/18 10:06 CONCLUSION: Negative examination for a hemodynamically significant carotid stenosis. Gianni Raymundo MD FACR Head CT 10/17/18 00:00 CONCLUSION: 1. Stable exam as detailed above. . Knee X-Ray 10/21/18 00:00 CONCLUSION: 1. Chronic irregularity of the superior pole along the patella with apparent ossification. There is adjacent mild soft tissue prominence. 2. Remote postsurgical changes in the proximal tibia. Chest X-Ray 11/05/18 08:43 CONCLUSION: Persistent consolidation and cavitary change in the left upper lung. Physical Exam: GENERAL: No acute distress. Awake and alert. HEENT: Pupils reactive to light. Extraocular movements intact. No icterus. Oropharynx mucosa slightly dry. NECK: Supple without adenopathy. No swelling. LUNGS: Decreased breath sounds. HEART: Regular S1-S2 without murmurs rubs or gallops. ABDOMEN: Bowel sounds present, soft, no tenderness. EXTREMITIES: No clubbing cyanosis or edema. Diffuse muscle wasting. SKIN: No diffuse rash. NEUROLOGIC: No gross focal finding PSYCH: Calm. Assessment and Plan - Plan Pulmonary MARTINA disease. Left upper lobe cavitary lesion-mass. Encephalopathy improved. Traumatic subdural hemorrhage/subarachnoid hemorrhage with skull base fracture Anemia-most likely acute on chronic blood loss related Sepsis. Stable. Fever. Questionable etiology. Does not look toxic. Possibility of drug fever versus infection. Recommend: Continue azithromycin, ethambutol and rifampin for MARTINA. Avoid Haldol while he is on azithromycin. Obtain blood culture if he spikes again. Patient will need supervised setting in order to be able to treat for the mycobacteria in terms of medicine administration. It is very important that he take his medicines on a daily basis. Duration of treatment for MARTINA is between 18 and 24 months. Sputum smear and culture will need to be monitored monthly to check for clearance of the MARTINA from the sputum and antibiotics is usually continued for 12 months after negative sputum. Liver function test need to be monitored weekly while on these antibiotics. Patient will need follow-up with infectious disease physician when discharged. Okay for him to be discharged from infectious disease standpoint when above is arranged.
--- NOTE | 2018-11-08 14:16 | P.PNIM ---
Subjective Interval history: Follow-up encephalopathy L. Patient today is calm and cooperative he is off restraints. He is out of bed to chair Physical Exam Vital signs: Last Vital Signs Temp 98.5 F 11/08/18 11:17 Pulse 105 H 11/08/18 11:17 Resp 18 11/08/18 11:17 BP 121/70 11/08/18 11:17 Pulse Ox 95 11/08/18 11:17 Intake & Output 11/06/18 11/07/18 11/08/18 11/09/18 06:59 06:59 06:59 06:59 Intake Total 1956 / 1956 360 / 360 Output Total 403 / 403 1999 / 1999 Balance 1554 / 1554 -1640 / -1640 Weight 52.9 kg 52.9 kg 52.9 kg Narrative: GENERAL: NAD,Mid aged W/M alert Confused. CARDIOVASCULAR: Regular rate and rhythm without murmurs, gallops, or rubs. RESPIRATORY: Breath sounds equal bilaterally. Wheeze in left chest. No accessory muscle use. GASTROINTESTINAL: Abdomen soft, non-tender, nondistended. SKIN: Warm and dry.Scars over arms. NEURO: Confused but No focal neurological deficits. Urinary Catheter Management Indwelling Urethral Catheter: Cath placed during this visit: yes, but has since been removed by the nurse Urethral indwelling: Yes Insertion date: 10/15/18 Insertion time: 14:00 Removal date: 10/21/18 Removal time: 18:00 Condom: Cath placed during this visit: yes Urethral indwelling: Yes Reason for continuing: Not indwelling catheter Insertion date: 10/21/18 Insertion time: 18:00 Results Labs CBC & Chem 7: 11/08/18 05:08 11/08/18 05:08 Assessment and Plan Plan 53-year-old male with past medical history of hypertension, and COPD who presents emergency department with altered mental status found to have traumatic subdural hemorrhage/subarachnoid hemorrhage with skull base fracture, upper gastrointestinal bleed, and left upper lobe cavitary lesion concerning for infectious process. Hypokalemia. Improving Continue potassium replacement Chronic encephalopathy Delirium Likely related to brain bleed Restraints as needed Low-dose Seroquel Subdural hemorrhage Subarachnoid hemorrhage Status post bur hole intervention Continue Keppra switch to po will clarify with NS dc date Continue neurochecks Moderate encephalopathy on EEG Neurology following Upper left lung cavitary lesion Follow AFB cultures- MARTINA azithromycin, ethambutol and rifampin for MARTINA. Avoid Haldol while he is on azithromycin. Neg HIV test Discontinue isolation. Patient will need supervised setting in order to be able to treat for the mycobacteria. Duration of treatment for MARTINA is between 18 and 24 months. Sputum smear and culture will need to be monitored monthly to check for clearance of the [place] from the sputum and antibiotics is usually continued for 12 months after negative sputum. liver function test need to be monitored weekly while on these antibiotics. Patient will need follow-up with infectious disease physician when discharged. ID following Fever. Repeat CBC shows no leukocytosis. Chest x-ray remains abnormal with persistent constipation and cavitation left upper lung no change from previous. UA unremarkable. Possible drug fever, improving fever curve. Continue nebulization and incentive spirometry and monitor Esophagitis Ct PPI Follow CBC DVT prophylaxis SCDs Out of bed Progress Note: Quality VTE Deep Vein Thrombosis/Pulmonary Embolism Present on Admission: No
[2018-11-09] MEDS: QUEtiapine 25 MG Tablet PO SCH ×2 (08:31→22:53)
[2018-11-09] MEDS: levETIRAcetam 500 MG Tablet PO SCH ×2 (08:31→22:53)
[2018-11-09] MEDS: Azithromycin 250 MG Tablet PO SCH (08:31)
[2018-11-09] MEDS: Clotrimazole 1% Cream 15 GM Tube TOPICAL SCH ×3 (08:32→17:14)
[2018-11-09] MEDS: Sodium Chloride 0.9% 2 ML Flush BID IV.FLUSH SCH ×2 (08:32→22:54)
[2018-11-09 09:51] LABS: Anion Gap 9 meq/L (5-15); Blood Urea Nitrogen 11 mg/dL (7-18); Carbon Dioxide 28.2 meq/L (21.0-32.0); Chloride 97 meq/L (98-107); Glomerular Filtration Rate Greater Than 89 mL/min (>89); Glucose,Random 86 mg/dL (74-106); Magnesium 1.9 mg/dL (1.5-2.5); Potassium 4.4 meq/L (3.5-5.1); Sodium 134 meq/L (136-145)
--- NOTE | 2018-11-09 14:36 | P.PNIM ---
Subjective Interval history: Follow-up fever, MARTINA and encephalopathy. No recurrence of fever. Patient has no complaints, and cooperative off restraints. Discussed with nursing Physical Exam Vital signs: Last Vital Signs Temp 98.0 F 11/09/18 11:30 Pulse 89 11/09/18 11:30 Resp 20 11/09/18 11:30 BP 119/68 11/09/18 11:30 Pulse Ox 96 11/09/18 11:30 Intake & Output 11/07/18 11/08/18 11/09/18 11/10/18 06:59 06:59 06:59 06:59 Intake Total 360 / 360 Output Total 1999 / 1999 Balance -1640 / -1640 Weight 52.9 kg 52.9 kg Narrative: GENERAL: NAD,Mid aged W/M alert Confused. CARDIOVASCULAR: Regular rate and rhythm without murmurs, gallops, or rubs. RESPIRATORY: Breath sounds equal bilaterally. No accessory muscle use. GASTROINTESTINAL: Abdomen soft, non-tender, nondistended. SKIN: Warm and dry.Scars over arms. NEURO: Confused but No focal neurological deficits. Urinary Catheter Management Indwelling Urethral Catheter: Cath placed during this visit: yes, but has since been removed by the nurse Urethral indwelling: Yes Insertion date: 10/15/18 Insertion time: 14:00 Removal date: 10/21/18 Removal time: 18:00 Condom: Cath placed during this visit: yes Urethral indwelling: Yes Reason for continuing: Not indwelling catheter Insertion date: 10/21/18 Insertion time: 18:00 Results Labs CBC & Chem 7: 11/08/18 05:08 11/09/18 06:07 Assessment and Plan Plan 53-year-old male with past medical history of hypertension, and COPD who presents emergency department with altered mental status found to have traumatic subdural hemorrhage/subarachnoid hemorrhage with skull base fracture, upper gastrointestinal bleed, and left upper lobe cavitary lesion concerning for infectious process. Hypokalemia. Improving Continue potassium replacement Chronic encephalopathy Delirium Likely related to brain bleed Restraints as needed Low-dose Seroquel Subdural hemorrhage Subarachnoid hemorrhage Status post bur hole intervention Continue Keppra switch to po will clarify with NS dc date Continue neurochecks Moderate encephalopathy on EEG Neurology following Upper left lung cavitary lesion Follow AFB cultures- MARTINA azithromycin, ethambutol and rifampin for MARTINA. Avoid Haldol while he is on azithromycin. Neg HIV test Discontinue isolation. Patient will need supervised setting in order to be able to treat for the mycobacteria. Duration of treatment for MARTINA is between 18 and 24 months. Sputum smear and culture will need to be monitored monthly to check for clearance of the [place] from the sputum and antibiotics is usually continued for 12 months after negative sputum. liver function test need to be monitored weekly while on these antibiotics. Patient will need follow-up with infectious disease physician when discharged. ID following Fever. Repeat CBC shows no leukocytosis. Chest x-ray remains abnormal with persistent constipation and cavitation left upper lung no change from previous. UA unremarkable. Possible drug fever, improving fever curve. Continue nebulization and incentive spirometry and monitor Esophagitis Ct PPI Follow CBC DVT prophylaxis SCDs Out of bed Needs SNF no accepting facility at this time Progress Note: Quality VTE Deep Vein Thrombosis/Pulmonary Embolism Present on Admission: No
[2018-11-10 07:12] LABS: Baso # (Auto) 0.1 th/mm3 (0.0-0.2); Baso % (Auto) 1.1 % (0.0-2.0); Eos # (Auto) 0.3 th/mm3 (0.0-0.4); Eos % (Auto) 4.3 % (0.0-4.0); Hematocrit 27.6 % (39.0-51.0); Hemoglobin 9.3 gm/dL (13.0-17.0); Lymph % (Auto) 25.5 % (9.0-44.0); Mean Corpuscular HGB Conc 33.7 % (32.0-36.0); Mean Corpuscular Hemoglobin 28.9 pg (27.0-34.0); Mean Corpuscular Volume 85.7 fL (80.0-100.0); Mean Platelet Volume 7.5 fL (7.0-11.0); Mono # (Auto) 0.7 th/mm3 (0.0-0.9); Mono % (Auto) 8.9 % (0.0-8.0); Neut # (Auto) 4.7 th/mm3 (1.8-7.7); Neut % (Auto) 60.2 % (16.0-70.0); Platelet Count 388 th/mm3 (150-450); Red Blood Count 3.22 mil/mm3 (4.50-5.90); Red Cell Distribution Width 15.5 % (11.6-17.2); White Blood Count 7.8 th/mm3 (4.0-11.0)
[2018-11-10 07:36] LABS: Anion Gap 7 meq/L (5-15); Calcium 8.8 mg/dL (8.5-10.1); Carbon Dioxide 28.7 meq/L (21.0-32.0); Chloride 99 meq/L (98-107); Glomerular Filtration Rate Greater Than 89 mL/min (>89); Glucose,Random 93 mg/dL (74-106); Sodium 135 meq/L (136-145)
[2018-11-10 07:42] LABS: Blood Urea Nitrogen 13 mg/dL (7-18)
[2018-11-10] MEDS: QUEtiapine 25 MG Tablet PO SCH ×2 (09:15→21:06)
[2018-11-10] MEDS: Azithromycin 250 MG Tablet PO SCH (09:15)
[2018-11-10] MEDS: levETIRAcetam 500 MG Tablet PO SCH ×2 (09:15→21:06)
[2018-11-10] MEDS: Clotrimazole 1% Cream 15 GM Tube TOPICAL SCH ×3 (09:16→18:09)
[2018-11-10] MEDS: Sodium Chloride 0.9% 2 ML Flush BID IV.FLUSH SCH ×2 (09:16→21:06)
--- NOTE | 2018-11-10 13:41 | P.PNIM ---
Subjective Interval history: Follow-up fever, MARTINA infection and encephalopathy. No recurrence of fever. He is improved mentally off restraints for several days. He has no complaints he still has mild confusion. Physical Exam Vital signs: Last Vital Signs Temp 98.5 F 11/10/18 12:00 Pulse 79 11/10/18 12:00 Resp 20 11/10/18 12:00 BP 111/73 11/10/18 12:00 Pulse Ox 97 11/10/18 12:00 Intake & Output 11/08/18 11/09/18 11/10/18 11/11/18 06:59 06:59 06:59 06:59 Weight 52.9 kg 53 kg Narrative: GENERAL: NAD,Mid aged W/M alert CARDIOVASCULAR: Regular rate and rhythm without murmurs, gallops, or rubs. RESPIRATORY: Breath sounds equal bilaterally. No accessory muscle use. GASTROINTESTINAL: Abdomen soft, non-tender, nondistended. SKIN: Warm and dry.Scars over arms. NEURO: Oriented to person only. No focal neurological deficits. Urinary Catheter Management Indwelling Urethral Catheter: Cath placed during this visit: yes, but has since been removed by the nurse Urethral indwelling: Yes Insertion date: 10/15/18 Insertion time: 14:00 Removal date: 10/21/18 Removal time: 18:00 Condom: Cath placed during this visit: yes Urethral indwelling: Yes Reason for continuing: Not indwelling catheter Insertion date: 10/21/18 Insertion time: 18:00 Results Labs CBC & Chem 7: 11/10/18 06:08 11/10/18 06:08 Imaging Imaging: ITS Impressions Cervical Spine CT 10/15/18 13:26 CONCLUSION: 1. No acute fracture or subluxation. 2. Partially imaged large cavitary lesion in the left lung apex. Chest CT to follow. 3. Multilevel degenerative spondylosis of the cervical spine. Abdomen/Pelvis CT 10/15/18 15:27 CONCLUSION: 1. Extensive wall thickening urinary bladder, neoplastic process should be excluded. 2. Diverticulosis without diverticulitis. 3. Bilateral nonobstructing renal calculi. 4. Left basilar infiltrate. Chest CT 10/15/18 15:27 CONCLUSION: 1. Prominent cavitary mass along the anterior lateral left upper lung. This could be inflammatory/infectious versus neoplastic. It is nonspecific. 2. Patchy areas of consolidation seen at the posterior left lower lung with some lesser degree of cavitary change. This most closely resembles postinflammatory change although is nonspecific. 3. Small nodules measuring less than 5 mm at the anterior left lower lung and at the right middle lobe. These are nonspecific. They can be followed. 4. Significant adenopathy is not seen. Carotid Doppler Study 10/16/18 10:06 CONCLUSION: Negative examination for a hemodynamically significant carotid stenosis. Gianni Raymundo MD FACR Head CT 10/17/18 00:00 CONCLUSION: 1. Stable exam as detailed above. . Knee X-Ray 10/21/18 00:00 CONCLUSION: 1. Chronic irregularity of the superior pole along the patella with apparent ossification. There is adjacent mild soft tissue prominence. 2. Remote postsurgical changes in the proximal tibia. Chest X-Ray 11/05/18 08:43 CONCLUSION: Persistent consolidation and cavitary change in the left upper lung. Procedures Procedures: none Assessment and Plan Plan 53-year-old male with past medical history of hypertension, and COPD who presents emergency department with altered mental status found to have traumatic subdural hemorrhage/subarachnoid hemorrhage with skull base fracture, upper gastrointestinal bleed, and left upper lobe cavitary lesion concerning for infectious process. Hypokalemia. Stable Continue potassium replacement Chronic encephalopathy Delirium Likely related to brain bleed Restraints as needed Low-dose Seroquel Subdural hemorrhage Subarachnoid hemorrhage Status post bur hole intervention Continue Keppra switch to po will clarify with NS dc date Continue neurochecks Moderate encephalopathy on EEG Neurology following Upper left lung cavitary lesion Follow AFB cultures- MARTINA azithromycin, ethambutol and rifampin for MARTINA. Avoid Haldol while he is on azithromycin. Neg HIV test Discontinue isolation. Patient will need supervised setting in order to be able to treat for the mycobacteria. Duration of treatment for MARTINA is between 18 and 24 months. Sputum smear and culture will need to be monitored monthly to check for clearance of the [place] from the sputum and antibiotics is usually continued for 12 months after negative sputum. liver function test need to be monitored weekly while on these antibiotics. LFTs today pending Patient will need follow-up with infectious disease physician when discharged. ID following Fever. Repeat CBC shows no leukocytosis. Chest x-ray remains abnormal with persistent consolidation and cavitation left upper lung no change from previous. UA unremarkable. Possible drug fever, improving fever curve. Continue nebulization and incentive spirometry and monitor Esophagitis Ct PPI Follow CBC DVT prophylaxis SCDs Out of bed Needs SNF no accepting facility at this time Progress Note: Quality VTE Deep Vein Thrombosis/Pulmonary Embolism Present on Admission: No
[2018-11-10 14:06] LABS: Albumin 2.3 g/dL (3.4-5.0)
[2018-11-10 14:08] LABS: Total Protein 8.1 g/dL (6.4-8.2)
[2018-11-11] MEDS: Clotrimazole 1% Cream 15 GM Tube TOPICAL SCH ×3 (09:16→17:10)
[2018-11-11] MEDS: Azithromycin 250 MG Tablet PO SCH (09:16)
[2018-11-11] MEDS: levETIRAcetam 500 MG Tablet PO SCH ×2 (09:16→21:44)
[2018-11-11] MEDS: QUEtiapine 25 MG Tablet PO SCH ×2 (09:16→21:44)
[2018-11-11] MEDS: Sodium Chloride 0.9% 2 ML Flush BID IV.FLUSH SCH ×2 (09:17→21:44)
--- NOTE | 2018-11-11 13:21 | P.DIET ---
Nutritional Evaluation Type of nutrition evaluation: follow-up Nutrition consult regarding: Tube Feeding (TFing d/c'ed) Screening comments: 10/20 TF review Subjective Subjective Comments: Eating 100%. Objective - Diagnosis GI bleed, anemia, ICH - Objective % IBW: 86 (IBW = 148lb) Body Weight Used for Calculations: Actual Energy Needs - Lower Range (kCal/kg): 30 Energy Needs - Upper Range (kCal/kg): 35 Lower Limit kCal/kg (kCals): 1,734 Upper Limit kCal/kg (kCals): 2,023 Lower Limit Protein Factor (Grams per Kg): 1.2 Upper Limit Protein Factor (Grams per Kg): 1.4 Lower Protein Needs (Protein): 69 Upper Protein Needs (Protein): 81 Dietitian Reviewed in Medical Record: Current diet, Curent medications, Intake & Output, Labs, Medical history, Tube feeding Diet Order: regular diet w/ Ensure Enlive TID Oral Diet Intake Amount: Excellent 90%+ Speech Therapy Recommendations: No Objective Comments: PMH: HTN, s/p ORIF fx, traumatic amputation of toe Assessment Assessment: Pt is consistently consuming 100% of both meals and supplements x5 days. Please continue to provide feeding assistance and encourage PO intake as pt has low BMI. No further nutritional concerns at this time. Please consult RD if needed. Recommendations: 1. Continue to monitor PO and supplement intake 2. Provide feeding assistance as needed 3. Consult RD as needed Dietitian to Monitor: Lab values, Supplement acceptance, Intake & Output, Diet tolerance, Weight change, PO Intake, Diet advancement, Swallow recommendations, Medical course
--- NOTE | 2018-11-11 13:37 | P.PNIM ---
Subjective Interval history: 11-10 Follow-up fever, MARTINA infection and encephalopathy. No recurrence of fever. He is improved mentally off restraints for several days. He has no complaints he still has mild confusion. 11-11 REMAINS CONFUSED SLURS HIS SPEECH REMAINS WITH SOME CONFUSION DW RN AND PT Physical Exam Vital signs: Vital Signs 11/10/18 16:00 11/10/18 20:44 11/11/18 01:40 Temperature 98.1 F 98.2 F 98.0 F Pulse Rate 86 81 78 Respiratory Rate 20 20 20 Blood Pressure 117/74 137/82 134/78 Pulse Oximetry 99 99 100 11/11/18 05:17 11/11/18 08:00 Temperature 98.1 F 98.4 F Pulse Rate 80 85 Respiratory Rate 20 20 Blood Pressure 136/74 109/77 Pulse Oximetry 98 93 L Intake & Output 11/10/18 11/11/18 11/11/18 18:59 06:59 18:59 Weight 53 kg Other: # Incontinent Voids 2 # Urine Diapers 2 Date of Last Bowel Movement 11/09/18 11/09/18 Narrative: GENERAL: NAD,Mid aged W/M alert QUITE CONFUSED CARDIOVASCULAR: Regular rate and rhythm without murmurs, gallops, or rubs. RESPIRATORY: Breath sounds equal bilaterally. No accessory muscle use. GASTROINTESTINAL: Abdomen soft, non-tender, nondistended. SKIN: Warm and dry.Scars over arms. NEURO: Oriented to person only. No focal neurological deficits. INSIGHT AND JUDGEMENT IS LIMITED MOOD AND BEHAVIORS ARE NOT APPROPRIATE - Urinary Catheter Management Indwelling Urethral Catheter Cath placed during this visit: yes, but has since been removed by the nurse Urethral indwelling: Yes Reason for continuing: Decision to DC catheter Insertion date: 10/15/18 Insertion time: 14:00 Removal date: 10/21/18 Removal time: 18:00 Condom Cath placed during this visit: yes Urethral indwelling: Yes Reason for continuing: Not indwelling catheter Insertion date: 10/21/18 Insertion time: 18:00 Results - Labs CBC & Chem 7: 11/10/18 06:08 11/10/18 06:08 Laboratory Results - last 24 hr 11/10/18 06:08 Total Bilirubin 0.3 Direct Bilirubin 0.1 Indirect Bilirubin 0.2 AST 22 ALT 11 L Alkaline Phosphatase 101 Total Protein 8.1 Albumin 2.3 L - Imaging Chest X-Ray 10/15/18 13:23 CONCLUSION: 1. ETT in good position. NGT in the stomach. 2. Ill-defined parenchymal and pleural opacities in the left upper lobe. Differential considerations include infection, including atypical infection, in the appropriate clinical setting. Cervical Spine CT 10/15/18 13:26 CONCLUSION: 1. No acute fracture or subluxation. 2. Partially imaged large cavitary lesion in the left lung apex. Chest CT to follow. 3. Multilevel degenerative spondylosis of the cervical spine. Head CT 10/15/18 13:26 CONCLUSION: 1. Mild subdural hemorrhage seen at the right frontal region, left tentorium, left anterior falx, and left temporal region. The left temporal region hemorrhage could also be subarachnoid hemorrhage. 2. Suspected skull base fracture around the sphenoid sinus and at the anterior inferior aspect of the right middle cranial fossa. There appears to be air within the suprasellar cistern region. . Abdomen/Pelvis CT 10/15/18 15:27 CONCLUSION: 1. Extensive wall thickening urinary bladder, neoplastic process should be excluded. 2. Diverticulosis without diverticulitis. 3. Bilateral nonobstructing renal calculi. 4. Left basilar infiltrate. Chest CT 10/15/18 15:27 CONCLUSION: 1. Prominent cavitary mass along the anterior lateral left upper lung. This could be inflammatory/infectious versus neoplastic. It is nonspecific. 2. Patchy areas of consolidation seen at the posterior left lower lung with some lesser degree of cavitary change. This most closely resembles postinflammatory change although is nonspecific. 3. Small nodules measuring less than 5 mm at the anterior left lower lung and at the right middle lobe. These are nonspecific. They can be followed. 4. Significant adenopathy is not seen. Carotid Doppler Study 10/16/18 10:06 CONCLUSION: Negative examination for a hemodynamically significant carotid stenosis. Gianni Raymundo MD FACR Head CT 10/17/18 00:00 CONCLUSION: 1. Stable exam as detailed above. . Chest X-Ray 10/17/18 06:00 CONCLUSION: Unchanged area of consolidation within the left upper lobe. Chest X-Ray 10/19/18 00:00 CONCLUSION: Increased left lung infiltrate. Knee X-Ray 10/21/18 00:00 CONCLUSION: 1. Chronic irregularity of the superior pole along the patella with apparent ossification. There is adjacent mild soft tissue prominence. 2. Remote postsurgical changes in the proximal tibia. Chest X-Ray 10/21/18 06:00 CONCLUSION: No significant interval change in left lung opacity. Chest X-Ray 10/25/18 00:00 CONCLUSION: 1. Mildly improving left upper lobe cavitary mass with adjacent pleural- parenchymal disease. 2. Persistent diffuse interstitial and scattered airspace opacities throughout the left lung. Chest X-Ray 11/01/18 00:00 CONCLUSION: Stable chest with persistent infiltrate on the left Chest X-Ray 11/05/18 08:43 CONCLUSION: Persistent consolidation and cavitary change in the left upper lung. - Procedures none Assessment and Plan - Assessment (1) Subdural hematoma, post-traumatic Code(s): S06.5X9A - Traumatic subdural hemorrhage with loss of consciousness of unspecified duration, initial encounter Status: Acute (2) Intracerebral hemorrhage Code(s): I61.9 - Nontraumatic intracerebral hemorrhage, unspecified Status: Acute (3) COPD (chronic obstructive pulmonary disease) Code(s): J44.9 - Chronic obstructive pulmonary disease, unspecified Status: Acute (4) Cavitating mass of lung Code(s): J98.4 - Other disorders of lung Status: Acute (5) Pneumonia Code(s): J18.9 - Pneumonia, unspecified organism Status: Acute (6) GI bleed Code(s): K92.2 - Gastrointestinal hemorrhage, unspecified Status: Acute (7) Anemia Code(s): D64.9 - Anemia, unspecified Status: Acute - Plan 53-year-old male with past medical history of hypertension, and COPD who presents emergency department with altered mental status found to have traumatic subdural hemorrhage/subarachnoid hemorrhage with skull base fracture, upper gastrointestinal bleed, and left upper lobe cavitary lesion concerning for infectious process. Hypokalemia. Stable Continue potassium replacement Chronic encephalopathy Delirium Likely related to brain bleed Restraints as needed Low-dose Seroquel Subdural hemorrhage Subarachnoid hemorrhage Status post bur hole intervention Continue Keppra switch to po will clarify with NS dc date Continue neurochecks Moderate encephalopathy on EEG Neurology following Upper left lung cavitary lesion Follow AFB cultures- MARTINA azithromycin, ethambutol and rifampin for MARTINA. Avoid Haldol while he is on azithromycin. Neg HIV test Discontinue isolation. Patient will need supervised setting in order to be able to treat for the mycobacteria. Duration of treatment for MARTINA is between 18 and 24 months. Sputum smear and culture will need to be monitored monthly to check for clearance of the MD from the sputum and antibiotics is usually continued for 12 months after negative sputum. liver function test need to be monitored weekly while on these antibiotics. LFTs today pending Patient will need follow-up with infectious disease physician when discharged. ID following Fever. Repeat CBC shows no leukocytosis. Chest x-ray remains abnormal with persistent consolidation and cavitation left upper lung no change from previous. UA unremarkable. Possible drug fever, improving fever curve. Continue nebulization and incentive spirometry and monitor Esophagitis Ct PPI Follow CBC DVT prophylaxis SCDs Out of bed Needs SNF no accepting facility at this time Code Status: FULL CODE Discussed Condition With: RN AND PT Discharge Planning: NEEDS SAFE PLACE AT DISCHARGE
[2018-11-12] MEDS: levETIRAcetam 500 MG Tablet PO SCH ×2 (10:10→21:34)
[2018-11-12] MEDS: QUEtiapine 25 MG Tablet PO SCH (10:10)
[2018-11-12] MEDS: Azithromycin 250 MG Tablet PO SCH (10:10)
[2018-11-12] MEDS: Sodium Chloride 0.9% 2 ML Flush BID IV.FLUSH SCH ×2 (10:13→21:34)
[2018-11-12] MEDS: Clotrimazole 1% Cream 15 GM Tube TOPICAL SCH ×3 (10:14→18:01)
[2018-11-12 10:52] LABS: Baso # (Auto) 0.1 th/mm3 (0.0-0.2); Eos # (Auto) 0.2 th/mm3 (0.0-0.4); Eos % (Auto) 2.6 % (0.0-4.0); Hematocrit 30.1 % (39.0-51.0); Hemoglobin 9.7 gm/dL (13.0-17.0); Lymph # (Auto) 2.1 th/mm3 (1.0-4.8); Lymph % (Auto) 23.3 % (9.0-44.0); Mean Corpuscular HGB Conc 32.3 % (32.0-36.0); Mean Corpuscular Hemoglobin 28.5 pg (27.0-34.0); Mean Corpuscular Volume 88.2 fL (80.0-100.0); Mean Platelet Volume 7.6 fL (7.0-11.0); Mono # (Auto) 0.7 th/mm3 (0.0-0.9); Mono % (Auto) 7.4 % (0.0-8.0); Neut # (Auto) 6.1 th/mm3 (1.8-7.7); Neut % (Auto) 65.7 % (16.0-70.0); Platelet Count 409 th/mm3 (150-450); Red Blood Count 3.41 mil/mm3 (4.50-5.90); Red Cell Distribution Width 16.1 % (11.6-17.2); White Blood Count 9.2 th/mm3 (4.0-11.0)
[2018-11-12 11:15] LABS: Albumin 2.4 g/dL (3.4-5.0); Anion Gap 8 meq/L (5-15); Aspartate Aminotransferase 16 U/L (15-37); Blood Urea Nitrogen 10 mg/dL (7-18); Calcium 9.2 mg/dL (8.5-10.1); Carbon Dioxide 28.5 meq/L (21.0-32.0); Chloride 104 meq/L (98-107); Glomerular Filtration Rate Greater Than 89 mL/min (>89); Glucose,Random 129 mg/dL (74-106); Magnesium 1.9 mg/dL (1.5-2.5); Potassium 4.4 meq/L (3.5-5.1); Sodium 140 meq/L (136-145)
[2018-11-12 11:25] LABS: Alanine Aminotransferase 9 U/L (12-78); Alkaline Phosphatase 119 U/L (45-117); Phosphorus 4.5 mg/dL (2.5-4.9); Total Protein 8.2 g/dL (6.4-8.2)
[2018-11-12 11:40] LABS: Hemoglobin A1c 5.3 % (4.3-6.0)
--- NOTE | 2018-11-12 17:10 | P.PNIM ---
Subjective Interval history: 53-year-old gentleman with past medical history hypertension and COPD admitted with altered mental status found to have traumatic subdural hemorrhage with subarachnoid hemorrhage and skull base fracture, upper GI bleed , left upper lobe cavity lesion concerning for infectious process found to be MARTINA. Patient seen and examined, remains confused, denies any complaints of shortness of breath nausea vomiting, Physical Exam Vital signs: Last Vital Signs Temp 98.1 F 11/12/18 14:40 Pulse 80 11/12/18 14:40 Resp 20 11/12/18 15:51 BP 118/78 11/12/18 14:40 Pulse Ox 96 11/12/18 14:40 Intake & Output 11/10/18 11/11/18 11/12/18 11/13/18 06:59 06:59 06:59 06:59 Intake Total 360 / 360 Output Total 700 / 700 Balance -340 / -340 Weight 53 kg 53 kg 53 kg Thin well-developed well-nourished 53-year-old gentleman, Awake alert, confused, no distress Heart S1-S2 regular Lungs decreased breath sounds no wheeze no rhonchi Abdomen soft nondistended positive bowel sounds Extremities no clubbing cyanosis no edema Urinary Catheter Management Indwelling Urethral Catheter: Cath placed during this visit: yes, but has since been removed by the nurse Urethral indwelling: Yes Insertion date: 10/15/18 Insertion time: 14:00 Removal date: 10/21/18 Removal time: 18:00 Condom: Cath placed during this visit: yes Urethral indwelling: Yes Reason for continuing: Decision to DC catheter Insertion date: 10/21/18 Insertion time: 18:00 Results Labs CBC & Chem 7: 11/12/18 09:55 11/12/18 09:55 Labs: Microbiology 10/21/18 12:40 Bronchial Brushings - Left Upper Lobe Fungal Smear - Final 10/21/18 12:40 Bronchial Brushings - Left Upper Lobe Fungal Culture - Preliminary No growth in 3 weeks 10/21/18 12:40 Bronchial Brushings - Left Upper Lobe Acid Fast Bacilli Smear - Final No acid fast bacilli seen 10/21/18 12:40 Bronchial Brushings - Left Upper Lobe Mycobacterial Culture - Preliminary No growth in 3 weeks 10/21/18 12:40 Bronchial Washings - Left Upper Lobe Fungal Smear - Final No fungal elements seen 10/21/18 12:40 Bronchial Washings - Left Upper Lobe Fungal Culture - Preliminary No growth in 3 weeks Procedures Procedures: none Assessment and Plan Plan ACUTE ENCEPHALOPATHY w delirium w post ich neurocognitive impairment and disability - will require rehab and will titrate meds for agitation CEREBRAL EDEMA acute due to cerebral hemorrhage improving SDH W SAH post traumatic, s/p buhh hole interventionstable, no anticoagulation , seizure prophlyaxis w keppra MARTINA nonTB cavitary lesion MANGO - cont azmcyn, ethambutol, rifampin therapu for 18 mo , fu w pulm, monitor lfts weekly PULMONARY NODULES will need outpatient followup GIB W ESOPHAGITIS cont ppi, hgb stable COPD - cont nebs prn ANEMIA critical, 5.5 hemoglobin on admit, post transfusion, due to acute gi blood loss - stable HTN - on clondine, can worsen mentation, consider changing it SEVERE PROT DEN MALNUTRITION w emaciation and low bmi 18.3 - cont diet OROPHARYNGEAL DYSPHASIA continue aspiration precautions, modified diet per speech therapy BLADDER WALL THICKENING noted on ct abd on admit, seen by urology Dr MOORE, will need outpatient cystoscopy BPH was on flomax, voiding ok, restart prn dvt prophylaxis scd dispo - rehab placement Progress Note: Quality VTE Deep Vein Thrombosis/Pulmonary Embolism Present on Admission: No
[2018-11-12] MEDS ORDERED: Mirtazapine 15 MG Tablet PO SCH (21:00)
[2018-11-13] MEDS: Azithromycin 250 MG Tablet PO SCH (09:04)
[2018-11-13] MEDS: Multivitamin/Minerals Therapeutic Tablet PO SCH (09:05)
[2018-11-13] MEDS: Clotrimazole 1% Cream 15 GM Tube TOPICAL SCH ×3 (09:05→17:06)
[2018-11-13] MEDS: levETIRAcetam 500 MG Tablet PO SCH ×2 (09:05→21:39)
[2018-11-13] MEDS: Sodium Chloride 0.9% 2 ML Flush BID IV.FLUSH SCH ×2 (09:05→21:40)
--- NOTE | 2018-11-13 19:49 | P.PNIM ---
Subjective Interval history: 53-year-old gentleman with past medical history hypertension and COPD admitted with altered mental status found to have traumatic subdural hemorrhage with subarachnoid hemorrhage and skull base fracture, upper GI bleed , left upper lobe cavity lesion concerning for infectious process found to be MARTINA. Patient seen and examined earlier today, case discussed with case management, remains confused, denies any complaints of shortness of breath nausea vomiting, but has been continued in soft wrist restraints due to confusion, impulsiveness , started on Risperdal and Remeron, states he did not sleep well last night. Physical Exam Vital signs: Last Vital Signs Temp 98.0 F 11/13/18 12:00 Pulse 91 H 11/13/18 12:00 Resp 20 11/13/18 12:00 BP 119/80 11/13/18 12:00 Pulse Ox 95 11/13/18 12:00 Intake & Output 11/11/18 11/12/18 11/13/18 11/14/18 06:59 06:59 06:59 06:59 Intake Total 360 / 360 720 / 720 Output Total 700 / 700 Balance -340 / -340 720 / 720 Weight 53 kg 53 kg 53 kg Thin well-developed well-nourished 53-year-old white male Awake alert, pleasant but confused, confabulating, nonsensical responses, Heart S1-S2 regular Lungs clear decreased breath sounds Abdomen soft nondistended positive bowel sounds Extremities no edema no calf tenderness pulses palpable Urinary Catheter Management Indwelling Urethral Catheter: Cath placed during this visit: yes, but has since been removed by the nurse Urethral indwelling: Yes Insertion date: 10/15/18 Insertion time: 14:00 Removal date: 10/21/18 Removal time: 18:00 Condom: Cath placed during this visit: yes Urethral indwelling: Yes Reason for continuing: Acute urinary retention Insertion date: 10/21/18 Insertion time: 18:00 Results Labs CBC & Chem 7: 11/12/18 09:55 11/12/18 09:55 Procedures Procedures: none Assessment and Plan Plan ACUTE ENCEPHALOPATHY w delirium w post ich neurocognitive impairment and disability - will require rehab and will continue titrate meds for agitation, impulsiveness control for safety, to discontinue restraints, seems to be tolerating the medications okay CEREBRAL EDEMA acute due to cerebral hemorrhage improving SDH W SAH post traumatic, s/p buhh hole interventionstable, no anticoagulation , seizure prophlyaxis w keppra MARTINA nonTB cavitary lesion MANGO - cont azmcyn, ethambutol, rifampin therapu for 18 mo , fu w pulm, monitor lfts weekly PULMONARY NODULES will need outpatient followup GIB W ESOPHAGITIS cont ppi, hgb stable COPD - cont nebs prn ANEMIA critical, 5.5 hemoglobin on admit, post transfusion, due to acute gi blood loss - stable no further evidence of bleed HTN - on clondine, can worsen mentation, consider changing it SEVERE PROT DEN MALNUTRITION w emaciation and low bmi 18.3 - cont diet, supplements as tolerated OROPHARYNGEAL DYSPHASIA continue aspiration precautions, modified diet per speech therapy BLADDER WALL THICKENING noted on ct abd on admit, seen by urology Dr MOORE, will need outpatient cystoscopy BPH was on flomax, voiding ok, restart prn dvt prophylaxis scd dispo - rehab placement when out of restraints. Progress Note: Quality VTE Deep Vein Thrombosis/Pulmonary Embolism Present on Admission: No
[2018-11-13] MEDS: Mirtazapine 15 MG Tablet PO SCH (21:39)
[2018-11-14] MEDS: Multivitamin/Minerals Therapeutic Tablet PO SCH (08:46)
[2018-11-14] MEDS: Azithromycin 250 MG Tablet PO SCH (08:46)
[2018-11-14] MEDS: levETIRAcetam 500 MG Tablet PO SCH ×2 (08:47→22:35)
[2018-11-14] MEDS: Clotrimazole 1% Cream 15 GM Tube TOPICAL SCH ×3 (08:47→17:41)
[2018-11-14] MEDS: Sodium Chloride 0.9% 2 ML Flush BID IV.FLUSH SCH ×2 (08:48→22:38)
--- NOTE | 2018-11-14 21:53 | P.PNIM ---
Subjective Interval history: 53-year-old gentleman with past medical history hypertension and COPD admitted with altered mental status found to have traumatic subdural hemorrhage with subarachnoid hemorrhage and skull base fracture, upper GI bleed , left upper lobe cavity lesion concerning for infectious process found to be MARTINA. pt seen and examined earlier today, no events overnight, out of restraints since last night, no complaints Physical Exam Vital signs: Last Vital Signs Temp 98.8 F 11/14/18 20:00 Pulse 85 11/14/18 20:00 Resp 20 11/14/18 20:00 BP 102/59 L 11/14/18 20:00 Pulse Ox 96 11/14/18 20:00 Intake & Output 11/12/18 11/13/18 11/14/18 11/15/18 06:59 06:59 06:59 06:59 Intake Total 360 / 360 720 / 720 Output Total 700 / 700 Balance -340 / -340 720 / 720 Weight 53 kg 53 kg 53 kg Well-developed well-nourished chronically ill-appearing 53-year-old white male A bit sleepy but arousable no acute distress Heart S1-S2 regular Lungs diminished breath sounds no wheeze no rhonchi Abdomen soft nondistended positive bowel sounds Extremity's no clubbing cyanosis no edema Urinary Catheter Management Indwelling Urethral Catheter: Cath placed during this visit: yes, but has since been removed by the nurse Urethral indwelling: Yes Insertion date: 10/15/18 Insertion time: 14:00 Removal date: 10/21/18 Removal time: 18:00 Condom: Cath placed during this visit: yes Urethral indwelling: Yes Reason for continuing: Not indwelling catheter Insertion date: 10/21/18 Insertion time: 18:00 Results Labs CBC & Chem 7: 11/12/18 09:55 11/12/18 09:55 Procedures Procedures: none Assessment and Plan Plan ACUTE ENCEPHALOPATHY w delirium w post ich neurocognitive impairment and disability - will require rehab and will continue titrate meds for agitation, impulsiveness control for safety, to discontinue restraints, seems to be tolerating the medications okay CEREBRAL EDEMA acute due to cerebral hemorrhage improving SDH W SAH post traumatic, s/p buhh hole interventionstable, no anticoagulation , seizure prophlyaxis w keppra MARTINA nonTB cavitary lesion MANGO - cont azmcyn, ethambutol, rifampin therapu for 18 mo , fu w pulm, monitor lfts weekly PULMONARY NODULES will need outpatient followup GIB W ESOPHAGITIS cont ppi, hgb stable COPD - cont nebs prn ANEMIA critical, 5.5 hemoglobin on admit, post transfusion, due to acute gi blood loss - stable no further evidence of bleed HTN - on clondine, can worsen mentation, consider changing it SEVERE PROT DEN MALNUTRITION w emaciation and low bmi 18.3 - cont diet, supplements as tolerated OROPHARYNGEAL DYSPHASIA continue aspiration precautions, modified diet per speech therapy BLADDER WALL THICKENING noted on ct abd on admit, seen by urology Dr MOORE, will need outpatient cystoscopy BPH was on flomax, voiding ok, restart prn dvt prophylaxis scd dispo - rehab placement tomorrow when arranged per insurance approval if remains clinically stable Progress Note: Quality VTE Deep Vein Thrombosis/Pulmonary Embolism Present on Admission: No
[2018-11-14] MEDS: Mirtazapine 15 MG Tablet PO SCH (22:35)
[2018-11-15] MEDS: Azithromycin 250 MG Tablet PO SCH (09:01)
[2018-11-15] MEDS: levETIRAcetam 500 MG Tablet PO SCH ×2 (09:01→20:12)
[2018-11-15] MEDS: Multivitamin/Minerals Therapeutic Tablet PO SCH (09:01)
[2018-11-15] MEDS: Clotrimazole 1% Cream 15 GM Tube TOPICAL SCH ×3 (09:02→18:00)
[2018-11-15] MEDS: Sodium Chloride 0.9% 2 ML Flush BID IV.FLUSH SCH ×2 (09:02→20:12)
--- NOTE | 2018-11-15 19:22 | P.PNIM ---
Subjective Interval history: 53-year-old gentleman with past medical history hypertension and COPD admitted with altered mental status found to have traumatic subdural hemorrhage with subarachnoid hemorrhage and skull base fracture, upper GI bleed , left upper lobe cavity lesion concerning for infectious process found to be MARTINA. Patient still w confusion and behavior management w meds being adjusted as awaiting placement pt seen and examined doing better denies pain, talking about people coming in from doors and him finding things, nonfocal though patterns Physical Exam Vital signs: Last Vital Signs Temp 98.1 F 11/15/18 16:00 Pulse 86 11/15/18 16:00 Resp 20 11/15/18 16:00 BP 130/20 L 11/15/18 16:00 Pulse Ox 98 11/15/18 16:00 Intake & Output 11/13/18 11/14/18 11/15/18 11/16/18 06:59 06:59 06:59 06:59 Intake Total 720 / 720 Balance 720 / 720 Weight 53 kg 53 kg thin 53yo w ma awake and alert, no distress, confused, confabulations, pleasant and calm heart s1s2 reg lungs clear no wrr abd soft pos bs nondt nontender Urinary Catheter Management Indwelling Urethral Catheter: Cath placed during this visit: yes, but has since been removed by the nurse Urethral indwelling: Yes Insertion date: 10/15/18 Insertion time: 14:00 Removal date: 10/21/18 Removal time: 18:00 Condom: Cath placed during this visit: yes Urethral indwelling: Yes Reason for continuing: Chronic Urinary Retention Insertion date: 10/21/18 Insertion time: 18:00 Results Labs CBC & Chem 7: 11/12/18 09:55 11/12/18 09:55 Procedures Procedures: none Assessment and Plan Plan ACUTE ENCEPHALOPATHY w delirium w post ich neurocognitive impairment and disability - will require rehab and will continue titrate meds for agitation, impulsiveness control for safety, to discontinue restraints, seems to be tolerating the medications okay CEREBRAL EDEMA acute due to cerebral hemorrhage improving SDH W SAH post traumatic, s/p buhh hole interventionstable, no anticoagulation , seizure prophlyaxis w keppra MARTINA nonTB cavitary lesion MANGO - cont azmcyn, ethambutol, rifampin therapu for 18 mo , fu w pulm, monitor lfts weekly PULMONARY NODULES will need outpatient followup ACUTE UPPER GIB W ESOPHAGITIS cont ppi, hgb stable COPD - cont nebs prn ANEMIA critical, 5.5 hemoglobin on admit, post transfusion, due to acute /on chronic gi blood loss - stable no further evidence of bleed HTN - on clondine, can worsen mentation, consider changing it SEVERE PROT DEN MALNUTRITION w emaciation and low bmi 18.3 - cont diet, supplements as tolerated OROPHARYNGEAL DYSPHASIA continue aspiration precautions, modified diet per speech therapy BLADDER WALL THICKENING noted on ct abd on admit, seen by urology Dr MOORE, will need outpatient cystoscopy BPH was on flomax, voiding ok, restart prn dvt prophylaxis scd dispo - rehab placement tomorrow when arranged per insurance approval if remains clinically stable Progress Note: Quality VTE Deep Vein Thrombosis/Pulmonary Embolism Present on Admission: No
[2018-11-15] MEDS: Mirtazapine 15 MG Tablet PO SCH (20:12)
[2018-11-16] MEDS: Azithromycin 250 MG Tablet PO SCH (08:51)
[2018-11-16] MEDS: levETIRAcetam 500 MG Tablet PO SCH ×2 (08:52→21:56)
[2018-11-16] MEDS: Clotrimazole 1% Cream 15 GM Tube TOPICAL SCH ×3 (08:52→17:05)
[2018-11-16] MEDS: Sodium Chloride 0.9% 2 ML Flush BID IV.FLUSH SCH ×2 (08:52→21:56)
[2018-11-16] MEDS: Multivitamin/Minerals Therapeutic Tablet PO SCH (08:52)
--- NOTE | 2018-11-16 15:43 | P.PNIM ---
Subjective Interval history: 53-year-old gentleman with past medical history hypertension and COPD admitted with altered mental status found to have traumatic subdural hemorrhage with subarachnoid hemorrhage and skull base fracture, upper GI bleed , left upper lobe cavity lesion concerning for infectious process found to be MARTINA. pt seen and examined today, resting comfortably, no new complaints, awaiting placement Physical Exam Vital signs: Last Vital Signs Temp 98.2 F 11/16/18 12:00 Pulse 92 H 11/16/18 12:00 Resp 20 11/16/18 12:00 BP 117/79 11/16/18 12:00 Pulse Ox 92 L 11/16/18 12:00 Intake & Output 11/14/18 11/15/18 11/16/18 11/17/18 06:59 06:59 06:59 06:59 Intake Total 720 / 720 240 / 240 Balance 720 / 720 240 / 240 Weight 53 kg wdwn 53yo w m aa nad, pleasant but confused heart s2 s2 reg lungs clear no wheeze no rales abd soft nondt pos bs ext no edema no calf tenderness Urinary Catheter Management Indwelling Urethral Catheter: Cath placed during this visit: yes, but has since been removed by the nurse Urethral indwelling: Yes Insertion date: 10/15/18 Insertion time: 14:00 Removal date: 10/21/18 Removal time: 18:00 Condom: Cath placed during this visit: yes Urethral indwelling: Yes Reason for continuing: Chronic Urinary Retention Insertion date: 10/21/18 Insertion time: 18:00 Results Labs CBC & Chem 7: 11/12/18 09:55 11/12/18 09:55 Procedures Procedures: none Assessment and Plan Plan ACUTE ENCEPHALOPATHY w delirium w post ich neurocognitive impairment and disability - will require rehab and will continue titrate meds for agitation, impulsiveness control for safety, tolerating the medications CEREBRAL EDEMA acute due to cerebral hemorrhage improving SDH W SAH post traumatic, s/p buhh hole interventionstable, no anticoagulation , seizure prophlyaxis w keppra MARTINA nonTB cavitary lesion MANGO - cont azmcyn, ethambutol, rifampin therapu for 18 mo , fu w pulm, monitor lfts weekly PULMONARY NODULES will need outpatient followup ACUTE UPPER GIB W ESOPHAGITIS cont ppi, hgb stable COPD - cont nebs prn ANEMIA critical, 5.5 hemoglobin on admit, post transfusion, due to acute /on chronic gi blood loss - stable no further evidence of bleed HTN - on clondine, can worsen mentation, consider changing it SEVERE PROT DEN MALNUTRITION w emaciation and low bmi 18.3 - cont diet, supplements as tolerated OROPHARYNGEAL DYSPHASIA continue aspiration precautions, modified diet per speech therapy BLADDER WALL THICKENING noted on ct abd on admit, seen by urology Dr MOORE, will need outpatient cystoscopy BPH was on flomax, voiding ok, restart prn dvt prophylaxis scd dispo - rehab placement when arranged per insurance approval if remains clinically stable Progress Note: Quality VTE Deep Vein Thrombosis/Pulmonary Embolism Present on Admission: No
[2018-11-16] MEDS: Mirtazapine 15 MG Tablet PO SCH (21:56)
[2018-11-17] MEDS: Azithromycin 250 MG Tablet PO SCH (08:14)
[2018-11-17] MEDS: Clotrimazole 1% Cream 15 GM Tube TOPICAL SCH ×3 (08:15→18:32)
[2018-11-17] MEDS: levETIRAcetam 500 MG Tablet PO SCH ×2 (08:15→20:50)
[2018-11-17] MEDS: Sodium Chloride 0.9% 2 ML Flush BID IV.FLUSH SCH ×2 (08:15→20:51)
[2018-11-17] MEDS: Multivitamin/Minerals Therapeutic Tablet PO SCH (08:15)
--- NOTE | 2018-11-17 17:30 | P.PNIM ---
Subjective Interval history: 53-year-old gentleman with past medical history hypertension and COPD admitted with altered mental status found to have traumatic subdural hemorrhage with subarachnoid hemorrhage and skull base fracture, upper GI bleed , left upper lobe cavity lesion concerning for infectious process found to be MARTINA. been awaiting placement, remains very confused, meds titrated as needed to keep him less restless, impulsive and out of safety restraints. pt seen and examined today,sleeping, per nursing doing a little better, no events overnight Physical Exam Vital signs: Last Vital Signs Temp 98.7 F 11/17/18 11:50 Pulse 91 H 11/17/18 11:50 Resp 14 11/17/18 11:50 BP 131/79 11/17/18 11:50 Pulse Ox 97 11/17/18 11:50 Intake & Output 11/15/18 11/16/18 11/17/18 11/18/18 06:59 06:59 06:59 06:59 Intake Total 240 / 240 Balance 240 / 240 wdwn 53 yo w male, nad heart s1s2 reg lungs clear ext no edema Urinary Catheter Management Indwelling Urethral Catheter: Cath placed during this visit: yes, but has since been removed by the nurse Urethral indwelling: Yes Insertion date: 10/15/18 Insertion time: 14:00 Removal date: 10/21/18 Removal time: 18:00 Condom: Cath placed during this visit: yes Urethral indwelling: Yes Reason for continuing: Not indwelling catheter Insertion date: 10/21/18 Insertion time: 18:00 Results Labs CBC & Chem 7: 11/12/18 09:55 11/12/18 09:55 Procedures Procedures: none Assessment and Plan Plan ACUTE ENCEPHALOPATHY w delirium w post ich neurocognitive impairment and disability - will require rehab and will continue titrate meds for agitation, impulsiveness control for safety, tolerating the medications CEREBRAL EDEMA acute due to cerebral hemorrhage improving SDH W SAH post traumatic, s/p buhh hole interventionstable, no anticoagulation , seizure prophlyaxis w keppra MARTINA nonTB cavitary lesion MANGO - cont azmcyn, ethambutol, rifampin therapu for 18 mo , fu w pulm, monitor lfts weekly PULMONARY NODULES will need outpatient followup ACUTE UPPER GIB W ESOPHAGITIS cont ppi, hgb stable COPD - cont nebs prn ANEMIA critical, 5.5 hemoglobin on admit, post transfusion, due to acute /on chronic gi blood loss - stable no further evidence of bleed HTN - on clondine, can worsen mentation, consider changing it SEVERE PROT DEN MALNUTRITION w emaciation and low bmi 18.3 - cont diet, supplements as tolerated OROPHARYNGEAL DYSPHASIA continue aspiration precautions, modified diet per speech therapy BLADDER WALL THICKENING noted on ct abd on admit, seen by urology Dr MOORE, will need outpatient cystoscopy BPH was on flomax, voiding ok, restart prn dvt prophylaxis scd dispo - rehab placement has been accepted just awaiting insurance approval Progress Note: Quality VTE Deep Vein Thrombosis/Pulmonary Embolism Present on Admission: No
[2018-11-17] MEDS: Mirtazapine 15 MG Tablet PO SCH (20:51)
[2018-11-18] MEDS: Azithromycin 250 MG Tablet PO SCH (08:45)
[2018-11-18] MEDS: Sodium Chloride 0.9% 2 ML Flush BID IV.FLUSH SCH ×2 (08:46→22:16)
[2018-11-18] MEDS: levETIRAcetam 500 MG Tablet PO SCH ×2 (08:46→22:15)
[2018-11-18] MEDS: Multivitamin/Minerals Therapeutic Tablet PO SCH (08:46)
[2018-11-18] MEDS: Clotrimazole 1% Cream 15 GM Tube TOPICAL SCH ×2 (13:16→18:16)
--- NOTE | 2018-11-18 16:32 | P.PNIM ---
Subjective Interval history: Patient reports he is doing okay today. No new issues. Physical Exam Vital signs: Last Vital Signs Temp 98.8 F 11/18/18 15:10 Pulse 85 11/18/18 15:10 Resp 20 11/18/18 15:10 BP 108/78 11/18/18 15:10 Pulse Ox 96 11/18/18 15:10 Intake & Output 11/16/18 11/17/18 11/18/18 11/19/18 06:59 06:59 06:59 06:59 Intake Total 240 / 240 Output Total 1400 / 1400 Balance 240 / 240 -1400 / -1400 Narrative: GENERAL: This is a well-nourished, well-developed patient, in no apparent distress. CARDIOVASCULAR: Normal rate and regular rhythm without murmurs, gallops, or rubs. RESPIRATORY: Good respiratory efforts. Breath sounds equal and clear to auscultation bilaterally. GASTROINTESTINAL: Abdomen soft, non-tender, non-distended. Normal active bowel sounds MUSCULOSKELETAL: Extremities without cyanosis, or edema. PSYCH: Insight and judgment fair. Urinary Catheter Management Indwelling Urethral Catheter: Cath placed during this visit: yes, but has since been removed by the nurse Urethral indwelling: Yes Insertion date: 10/15/18 Insertion time: 14:00 Removal date: 10/21/18 Removal time: 18:00 Condom: Cath placed during this visit: yes Urethral indwelling: Yes Reason for continuing: Decision to DC catheter Insertion date: 10/21/18 Insertion time: 18:00 Results Labs CBC & Chem 7: 11/12/18 09:55 11/12/18 09:55 Labs: Microbiology 10/21/18 12:40 Bronchial Brushings - Left Upper Lobe Fungal Smear - Final 10/21/18 12:40 Bronchial Brushings - Left Upper Lobe Fungal Culture - Final No growth in 4 weeks 10/21/18 12:40 Bronchial Brushings - Left Upper Lobe Acid Fast Bacilli Smear - Final No acid fast bacilli seen 10/21/18 12:40 Bronchial Brushings - Left Upper Lobe Mycobacterial Culture - Preliminary No growth in 4 weeks 10/21/18 12:40 Bronchial Washings - Left Upper Lobe Fungal Smear - Final No fungal elements seen 10/21/18 12:40 Bronchial Washings - Left Upper Lobe Fungal Culture - Final No growth in 4 weeks Procedures Procedures: none Assessment and Plan Plan 53-year-old male with: ACUTE ENCEPHALOPATHY w delirium w post ich neurocognitive impairment and disability - will require rehab and will continue titrate meds for agitation, impulsiveness control for safety, tolerating the medications CEREBRAL EDEMA acute due to cerebral hemorrhage improving SDH W SAH post traumatic, s/p buhh hole interventionstable, no anticoagulation , seizure prophlyaxis w keppra MARTINA nonTB cavitary lesion MANGO - cont azithromicyn, ethambutol, rifampin therapy for 18 mo , fu w pulm, monitor lfts weekly PULMONARY NODULES: will need outpatient followup ACUTE UPPER GIB W ESOPHAGITIS: cont ppi, hgb stable COPD - cont nebs prn ANEMIA critical, 5.5 hemoglobin on admit, post transfusion, due to acute /on chronic gi blood loss - stable no further evidence of bleed HTN - on clonidine SEVERE PROT DEN MALNUTRITION w emaciation and low bmi 18.3 - cont diet, supplements as tolerated OROPHARYNGEAL DYSPHASIA continue aspiration precautions, modified diet per speech therapy BLADDER WALL THICKENING noted on ct abd on admit, seen by urology Dr MOORE, will need outpatient cystoscopy BPH was on flomax, voiding ok, restart prn dvt prophylaxis scd dispo - rehab placement. Has been accepted, awaiting insurance approval Progress Note: Quality VTE Deep Vein Thrombosis/Pulmonary Embolism Present on Admission: No
[2018-11-18] MEDS: Mirtazapine 15 MG Tablet PO SCH (22:15)
[2018-11-19] MEDS: levETIRAcetam 500 MG Tablet PO SCH ×2 (09:02→22:36)
[2018-11-19] MEDS: Multivitamin/Minerals Therapeutic Tablet PO SCH (09:02)
[2018-11-19] MEDS: Azithromycin 250 MG Tablet PO SCH (09:02)
[2018-11-19] MEDS: Sodium Chloride 0.9% 2 ML Flush BID IV.FLUSH SCH ×2 (09:06→22:37)
[2018-11-19] MEDS: Clotrimazole 1% Cream 15 GM Tube TOPICAL SCH ×3 (09:06→17:27)
--- NOTE | 2018-11-19 11:49 | P.PNIM ---
Subjective Interval history: Patient reports he is feeling okay today. He has no complaints. Physical Exam Vital signs: Last Vital Signs Temp 98.8 F 11/19/18 08:00 Pulse 84 11/19/18 08:00 Resp 20 11/19/18 08:00 BP 111/71 11/19/18 08:00 Pulse Ox 94 L 11/19/18 08:00 Intake & Output 11/17/18 11/18/18 11/19/18 11/20/18 06:59 06:59 06:59 06:59 Intake Total 720 / 720 Output Total 1400 / 1400 Balance -1400 / -1400 720 / 720 Weight 53 kg Narrative: GENERAL: This is a well-nourished, well-developed patient, in no apparent distress. CARDIOVASCULAR: Normal rate and regular rhythm without murmurs, gallops, or rubs. RESPIRATORY: Good respiratory efforts. Breath sounds equal and clear to auscultation bilaterally. GASTROINTESTINAL: Abdomen soft, non-tender, non-distended. Normal active bowel sounds MUSCULOSKELETAL: Extremities without cyanosis, or edema. PSYCH: Insight and judgment fair. Urinary Catheter Management Indwelling Urethral Catheter: Cath placed during this visit: yes, but has since been removed by the nurse Urethral indwelling: Yes Insertion date: 10/15/18 Insertion time: 14:00 Removal date: 10/21/18 Removal time: 18:00 Condom: Cath placed during this visit: yes Urethral indwelling: Yes Reason for continuing: Decision to DC catheter Insertion date: 10/21/18 Insertion time: 18:00 Results Labs CBC & Chem 7: 11/12/18 09:55 11/12/18 09:55 Labs: Microbiology 10/21/18 12:40 Bronchial Brushings - Left Upper Lobe Fungal Smear - Final 10/21/18 12:40 Bronchial Brushings - Left Upper Lobe Fungal Culture - Final No growth in 4 weeks 10/21/18 12:40 Bronchial Brushings - Left Upper Lobe Acid Fast Bacilli Smear - Final No acid fast bacilli seen 10/21/18 12:40 Bronchial Brushings - Left Upper Lobe Mycobacterial Culture - Preliminary No growth in 4 weeks 10/21/18 12:40 Bronchial Washings - Left Upper Lobe Fungal Smear - Final No fungal elements seen 10/21/18 12:40 Bronchial Washings - Left Upper Lobe Fungal Culture - Final No growth in 4 weeks Procedures Procedures: none Assessment and Plan Plan 53-year-old male with: ACUTE ENCEPHALOPATHY w delirium w post ich neurocognitive impairment and disability - will require rehab and will continue titrate meds for agitation, impulsiveness control for safety, tolerating the medications CEREBRAL EDEMA acute due to cerebral hemorrhage improving SDH W SAH post traumatic, s/p buhh hole interventionstable, no anticoagulation , seizure prophlyaxis w keppra MARTINA non TB cavitary lesion MANGO - cont azithromicyn, ethambutol, rifampin therapy for 18 mo , fu w pulm, monitor lfts weekly PULMONARY NODULES: will need outpatient followup ACUTE UPPER GIB W ESOPHAGITIS: cont ppi, hgb stable COPD - cont nebs prn ANEMIA critical, 5.5 hemoglobin on admit, post transfusion, due to acute /on chronic gi blood loss - stable no further evidence of bleed HTN - on clonidine SEVERE PROT DEN MALNUTRITION w emaciation and low bmi 18.3 - cont diet, supplements as tolerated OROPHARYNGEAL DYSPHASIA continue aspiration precautions, modified diet per speech therapy BLADDER WALL THICKENING noted on ct abd on admit, seen by urology Dr MOORE, will need outpatient cystoscopy BPH was on flomax, voiding ok, restart prn dvt prophylaxis scd dispo - rehab placement. Has been accepted, awaiting insurance approval. Discussed with case management Progress Note: Quality VTE Deep Vein Thrombosis/Pulmonary Embolism Present on Admission: No
--- NOTE | 2018-11-19 18:51 | P.PN ---
Subjective Interval history: Resting comfortably. Off o2 .has some cough and wheezing. Physical Exam Vital signs: Vital Signs 11/18/18 20:00 11/19/18 04:00 11/19/18 08:00 Temperature 100.4 F H 98 F 98.8 F Pulse Rate 111 H 84 84 Respiratory Rate 18 18 20 Blood Pressure 118/82 105/68 111/71 Pulse Oximetry 95 97 94 L 11/19/18 12:00 11/19/18 15:53 Temperature 98.5 F 99.1 F Pulse Rate 94 H 99 H Respiratory Rate 20 20 Blood Pressure 108/77 125/59 L Pulse Oximetry 96 99 Intake & Output 11/18/18 11/19/18 11/19/18 18:59 06:59 18:59 Intake Total 720 / 720 Balance 720 / 720 Weight 53 kg Intake: Oral 720 / 720 Other: # Voids 4 2 2 Date of Last Bowel Movement 11/18/18 # Bowel Movements 1 Narrative: GENERAL: This is a , well-developed patient, in no apparent distress. CARDIOVASCULAR: Normal rate and regular rhythm without murmurs, gallops, or rubs. RESPIRATORY: Good respiratory efforts. Breath sounds equal and has scattered wheezes. GASTROINTESTINAL: Abdomen soft, non-tender, non-distended. Normal active bowel sounds MUSCULOSKELETAL: Extremities without cyanosis, or edema. PSYCH: Normal affect - Urinary Catheter Management Indwelling Urethral Catheter Cath placed during this visit: yes, but has since been removed by the nurse Urethral indwelling: Yes Reason for continuing: Decision to DC catheter Insertion date: 10/15/18 Insertion time: 14:00 Removal date: 10/21/18 Removal time: 18:00 Condom Cath placed during this visit: yes Urethral indwelling: Yes Reason for continuing: Decision to DC catheter Insertion date: 10/21/18 Insertion time: 18:00 Results - Labs CBC & Chem 7: 11/12/18 09:55 11/12/18 09:55 Microbiology 10/21/18 12:40 Bronchial Brushings - Left Upper Lobe Fungal Smear - Final 10/21/18 12:40 Bronchial Brushings - Left Upper Lobe Fungal Culture - Final No growth in 4 weeks 10/21/18 12:40 Bronchial Brushings - Left Upper Lobe Acid Fast Bacilli Smear - Final No acid fast bacilli seen 10/21/18 12:40 Bronchial Brushings - Left Upper Lobe Mycobacterial Culture - Preliminary No growth in 4 weeks 10/21/18 12:40 Bronchial Washings - Left Upper Lobe Fungal Smear - Final No fungal elements seen 10/21/18 12:40 Bronchial Washings - Left Upper Lobe Fungal Culture - Final No growth in 4 weeks - Procedures none Assessment and Plan - Assessment (1) Subdural hematoma, post-traumatic Code(s): S06.5X9A - Traumatic subdural hemorrhage with loss of consciousness of unspecified duration, initial encounter Status: Acute (2) Intracerebral hemorrhage Code(s): I61.9 - Nontraumatic intracerebral hemorrhage, unspecified Status: Acute (3) COPD (chronic obstructive pulmonary disease) Code(s): J44.9 - Chronic obstructive pulmonary disease, unspecified Status: Acute (4) Cavitating mass of lung Code(s): J98.4 - Other disorders of lung Status: Acute (5) Pneumonia Code(s): J18.9 - Pneumonia, unspecified organism Status: Acute (6) GI bleed Code(s): K92.2 - Gastrointestinal hemorrhage, unspecified Status: Acute (7) Anemia Code(s): D64.9 - Anemia, unspecified Status: Acute (8) Mycobacterium avium-intracellulare infection Code(s): A31.0 - Pulmonary mycobacterial infection Status: Acute - Plan 1. Will get Chest Xray. 2. Continue antibiotics per ID Zithromax , Ethambutol, Rifampin 3. CMP ,CBC 4. Albuterol inhaler 2 Puffs QID PRN 5. Soft diet as tolerated 6. PT for activity.
--- NOTE | 2018-11-19 19:22 | XR ---
EXAM DATE: 11/19/2018 7:15 PM EST AGE/SEX: 53 years / Male INDICATIONS: Shortness of breath. CLINICAL DATA: This is the patient's subsequent encounter. Patient reports that signs and symptoms h ave been present for 1 month and indicates a pain score of Nonresponsive. MEDICAL/SURGICAL HISTORY: . . Hypertension. Chronic obstructive pulmonary disease. Subdural hem atoma. Subarachnoid hemorrhage. Fracture base of skull. GI bleed. Non-responsive. COMPARISON: [facility] – [place], CHEST 1V SINGLE AP, 11/05/2018. . FINDINGS: Study is abnormal with persistent consolidation cavitary changes in the left upper lung. The right lung is clear The heart and pulmonary vascularity are normal. The portion of the bony skeleton visualized is unremarkable. CONCLUSION: Persistent consolidation and cavitation left upper lobe. Considerations would include both neoplasm a nd tuberculosis Electronically signed by: Gianni Raymundo MD Board Certified Radiologist 11/19/2018 7:20 PM EST
[2018-11-19] MEDS: Mirtazapine 15 MG Tablet PO SCH (22:36)
[2018-11-20 08:12] LABS: Albumin 2.3 g/dL (3.4-5.0); Anion Gap 8 meq/L (5-15); Aspartate Aminotransferase 19 U/L (15-37); Blood Urea Nitrogen 13 mg/dL (7-18); Calcium 9.2 mg/dL (8.5-10.1); Carbon Dioxide 25.5 meq/L (21.0-32.0); Chloride 104 meq/L (98-107); Glomerular Filtration Rate Greater Than 89 mL/min (>89); Glucose,Random 92 mg/dL (74-106); Potassium 4.3 meq/L (3.5-5.1); Sodium 137 meq/L (136-145)
[2018-11-20 08:14] LABS: Alanine Aminotransferase 10 U/L (12-78)
[2018-11-20 08:16] LABS: Alkaline Phosphatase 104 U/L (45-117); Total Protein 7.9 g/dL (6.4-8.2)
[2018-11-20] MEDS: levETIRAcetam 500 MG Tablet PO SCH (09:33)
[2018-11-20] MEDS: Multivitamin/Minerals Therapeutic Tablet PO SCH (09:33)
[2018-11-20] MEDS: Azithromycin 250 MG Tablet PO SCH (09:33)
[2018-11-20] MEDS: Clotrimazole 1% Cream 15 GM Tube TOPICAL SCH ×2 (09:34→14:53)
[2018-11-20] MEDS: Sodium Chloride 0.9% 2 ML Flush BID IV.FLUSH SCH (09:35)
[2018-11-20 11:38] VITALS: BP 111/68; PULSE 88; RESP 20; TEMP 98.2; O2SAT 96
--- NOTE | 2018-11-20 13:06 | P.PNIM ---
Physical Exam Vital signs: Vital Signs 11/19/18 15:53 11/19/18 20:22 11/20/18 01:03 Temperature 99.1 F 98.2 F 98.4 F Pulse Rate 99 H 102 H 85 Respiratory Rate 20 20 20 Blood Pressure 125/59 L 120/81 121/75 Pulse Oximetry 99 97 98 11/20/18 04:45 11/20/18 08:00 11/20/18 11:37 Temperature 98.2 F 98.1 F 98.2 F Pulse Rate 86 83 88 Respiratory Rate 20 16 20 Blood Pressure 106/69 127/65 111/68 Pulse Oximetry 95 95 96 Intake & Output 11/19/18 11/20/18 11/20/18 18:59 06:59 18:59 Other: # Voids 2 1 Date of Last Bowel Movement 11/18/18 11/18/18 Urinary Catheter Management Indwelling Urethral Catheter: Cath placed during this visit: yes, but has since been removed by the nurse Urethral indwelling: Yes Reason for continuing: Decision to DC catheter Insertion date: 10/15/18 Insertion time: 14:00 Removal date: 10/21/18 Removal time: 18:00 Condom: Cath placed during this visit: yes Urethral indwelling: Yes Reason for continuing: Decision to DC catheter Insertion date: 10/21/18 Insertion time: 18:00 Results Labs CBC & Chem 7: 11/12/18 09:55 11/20/18 05:44 Imaging Imaging: Impressions Chest X-Ray 11/19/18 00:00 CONCLUSION: Persistent consolidation and cavitation left upper lobe. Considerations would include both neoplasm and tuberculosis Procedures Procedures: none Assessment and Plan Plan 53-year-old male with: ACUTE ENCEPHALOPATHY w delirium w post ich neurocognitive impairment and disability - will require rehab and will continue titrate meds for agitation, impulsiveness control for safety, tolerating the medications CEREBRAL EDEMA acute due to cerebral hemorrhage improving SDH W SAH post traumatic, s/p buhh hole interventionstable, no anticoagulation , seizure prophlyaxis w keppra MARTINA non TB cavitary lesion MANGO - cont azithromicyn, ethambutol, rifampin therapy for 18 mo , fu w pulm, monitor lfts weekly PULMONARY NODULES: will need outpatient followup ACUTE UPPER GIB W ESOPHAGITIS: cont ppi, hgb stable COPD - cont nebs prn ANEMIA critical, 5.5 hemoglobin on admit, post transfusion, due to acute /on chronic gi blood loss - stable no further evidence of bleed HTN - on clonidine SEVERE PROT DEN MALNUTRITION w emaciation and low bmi 18.3 - cont diet, supplements as tolerated OROPHARYNGEAL DYSPHASIA continue aspiration precautions, modified diet per speech therapy BLADDER WALL THICKENING noted on ct abd on admit, seen by urology Dr MOORE, will need outpatient cystoscopy BPH was on flomax, voiding ok, restart prn dvt prophylaxis scd dispo - rehab placement. Has been accepted, awaiting insurance approval. Discussed with case management Progress Note: Quality VTE Deep Vein Thrombosis/Pulmonary Embolism Present on Admission: No
--- NOTE | 2018-11-20 14:41 | P.DS ---
DS: Providers Date of admission: 10/15/18 15:10 Primary care physician: UNKNOWN Consults: 10/15/18 15:25 Consult to Neurosurgery Stat Consulting Provider: Dixon Garcia For STAT consult, spoke directly to:: deniz Reason for Consultation: sdh Notified:: Office Spoke with:: Linda Date Notified:: 10/15/18 Time Notified:: 15:30 Comments:: Ordering Provider: CAMI 10/15/18 16:35 Consult to Infectious Diseases Routine Consulting Provider: Vazquez Wing Reason for Consultation: sepsis, left lung cavitary lesion Notified:: Service Spoke with:: Cristina Date Notified:: 10/15/18 Time Notified:: 16:40 Ordering Provider: ROSS 10/15/18 16:43 Consult to Gastroenterology Stat Consulting Provider: Keaton Pretty V For STAT consult, spoke directly to:: Dr. pretty Preferred Merchandising Execution Manager:: Keaton Pretty Reason for Consultation: Anemia, hGB 5.5, coffee ground NG aspirate Notified:: Service Spoke with:: Effie Date Notified:: 10/15/18 Time Notified:: 16:50 Ordering Provider: ROSS 10/15/18 16:48 Consult to Pulmonology Routine Consulting Provider: Hal Humphries V Reason for Consultation: pulmonary cavitary lesion, COPD Notified:: Office Spoke with:: Shyann Date Notified:: 10/15/18 Time Notified:: 17:05 Ordering Provider: ROSS 10/16/18 10:35 Consult to Urology Routine Consulting Provider: Luiz Tovar Reason for Consultation: suspected urinary bladder neoplasm on CT Notified:: Office Spoke with:: ANNALISE Date Notified:: 10/16/18 Time Notified:: 10:55 Ordering Provider: ROSS 10/17/18 15:26 Consult to Palliative Care Routine Consulting Provider: Clark Bates Reason for Consultation: Assist with deciding goals of therapy and with clarifying POA/ decision making Notified:: Service Spoke with:: YONATAN Date Notified:: 10/17/18 Time Notified:: 15:27 Ordering Provider: ROSS 10/24/18 14:11 Consult to Hospitalist Routine Consulting Provider: Ahmed,Shahabuddi Reason for Consultation: medical management Notified:: Service Spoke with:: BEAU Date Notified:: 10/24/18 Time Notified:: 14:18 Comments:: Ordering Provider: BOBY Brief History from admission: HPI as documented by the admitting physician 53-year-old male with a medical history significant for hypertension, COPD who was found down at home, EMS was called and attempted intubation in the field for altered mental status after giving Versed and etomidate however patient had his teeth clenched and they could not intubated hence patient was bagged and brought to the ER. He was intubated in the ER and placed on mechanical ventilation. Head CT revealed left-sided small subdural hemorrhage and subarachnoid hemorrhage with skull base fracture with air around the sella. His hemoglobin came back 5.5. He was also noted to have coffee-ground material suctioned out of his NG tube. No melena or rectal bleeding noted. He was never hypotensive with systolic blood pressure in the 150s though he was tachycardic on arrival. He did spike a temperature in the ER of 101. Chest x- ray showed possible cavitary lesion in the left apex. Patient was accepted for admission by critical care medicine service after ER physician as discussed with trauma surgeon as well as Dr. Garcia from neurosurgery. When I evaluated the patient in the ER he was sedated with propofol, orally intubated on mechanical ventilation. History was obtained by reviewing records and discussion with ER physician. Patient update on day of discharge: Patient does not have any complaints today. He is accepted at [facility]. DS: Summary 53-year-old male admitted and treated for the following: ACUTE ENCEPHALOPATHY w delirium w post ich neurocognitive impairment and disability - will require rehab and will need to continue titrate meds for agitation, impulsiveness control for safety, tolerating the medications CEREBRAL EDEMA acute due to cerebral hemorrhage improving SDH W SAH post traumatic, s/p buhh hole interventionstable, no anticoagulation , seizure prophlyaxis w keppra MARTINA non TB cavitary lesion MANGO - cont azithromicyn, ethambutol, rifampin therapy for 18 mo , fu w pulm, monitor lfts weekly PULMONARY NODULES: will need outpatient followup ACUTE UPPER GIB W ESOPHAGITIS: cont ppi, hgb stable COPD - cont nebs prn ANEMIA critical, 5.5 hemoglobin on admit, post transfusion, due to acute /on chronic gi blood loss - stable no further evidence of bleed HTN - on clonidine SEVERE PROT DEN MALNUTRITION w emaciation and low bmi 18.3 - cont diet, supplements as tolerated OROPHARYNGEAL DYSPHASIA continue aspiration precautions, modified diet per speech therapy BLADDER WALL THICKENING noted on ct abd on admit, seen by urology Dr MOORE, will need outpatient cystoscopy BPH was on flomax, voiding ok, restart prn Time Spent with Patient Total time spent providing and/or coordinating discharge services: Quality: VTE Deep Vein Thrombosis/Pulmonary Embolism Present on Admission: No Exam Narrative Exam Narrative: GENERAL: This is a well-nourished, well-developed patient, in no apparent distress. CARDIOVASCULAR: Normal rate and regular rhythm without murmurs, gallops, or rubs. RESPIRATORY: Good respiratory efforts. Breath sounds equal and clear to auscultation bilaterally. GASTROINTESTINAL: Abdomen soft, non-tender, non-distended. Normal active bowel sounds MUSCULOSKELETAL: Extremities without cyanosis, or edema. PSYCH: Insight and judgment fair. Results Procedures completed during hospitalization: none Labs on day of discharge: Labs from last 24 hours 11/20/18 05:44 Sodium 137 Potassium 4.3 Chloride 104 Carbon Dioxide 25.5 Anion Gap 8 BUN 13 Creatinine 0.56 L Estimated GFR Greater than 89 Random Glucose 92 Calcium 9.2 Total Bilirubin 0.2 AST 19 ALT 10 L Alkaline Phosphatase 104 Total Protein 7.9 Albumin 2.3 L Preliminary micro results at discharge 10/21/18 12:40 Mycobacterial Culture - Preliminary Bronchial Brushings - Left Upper Lobe No growth in 4 weeks Impressions ITS Impressions Cervical Spine CT 10/15/18 13:26 CONCLUSION: 1. No acute fracture or subluxation. 2. Partially imaged large cavitary lesion in the left lung apex. Chest CT to follow. 3. Multilevel degenerative spondylosis of the cervical spine. Abdomen/Pelvis CT 10/15/18 15:27 CONCLUSION: 1. Extensive wall thickening urinary bladder, neoplastic process should be excluded. 2. Diverticulosis without diverticulitis. 3. Bilateral nonobstructing renal calculi. 4. Left basilar infiltrate. Chest CT 10/15/18 15:27 CONCLUSION: 1. Prominent cavitary mass along the anterior lateral left upper lung. This could be inflammatory/infectious versus neoplastic. It is nonspecific. 2. Patchy areas of consolidation seen at the posterior left lower lung with some lesser degree of cavitary change. This most closely resembles postinflammatory change although is nonspecific. 3. Small nodules measuring less than 5 mm at the anterior left lower lung and at the right middle lobe. These are nonspecific. They can be followed. 4. Significant adenopathy is not seen. Carotid Doppler Study 10/16/18 10:06 CONCLUSION: Negative examination for a hemodynamically significant carotid stenosis. Gianni Raymundo MD FACR Head CT 10/17/18 00:00 CONCLUSION: 1. Stable exam as detailed above. . Knee X-Ray 10/21/18 00:00 CONCLUSION: 1. Chronic irregularity of the superior pole along the patella with apparent ossification. There is adjacent mild soft tissue prominence. 2. Remote postsurgical changes in the proximal tibia. Chest X-Ray 11/19/18 00:00 CONCLUSION: Persistent consolidation and cavitation left upper lobe. Considerations would include both neoplasm and tuberculosis Discharge Plan Discharge Disposition Patient Disposition: [facility] Inpatient Discharge Condition Condition: Fair Discharge Order Discharge Orders: Discharge Order (Routine); Ordered 11/14/18 Ordered By: Michelle Hart Physicians Team ED Provider: Sukhdeep Campuzano Primary Care Provider: UNKNOWN, Attending Provider: Minerva Calvillo Other Providers: Dixon Garcia ; Keaton Pretty V ; Vazquez Wing ; Hla Humphries V ; Luiz Tovar ; Clark Bates Rxs /Orders / Referrals /Forms Prescriptions: New azithromycin 250 mg Tablet 500 mg PO DAILY Qty: 0 RF: 0 levetiracetam [Keppra] 500 mg Tablet 500 mg PO BID Qty: 0 RF: 0 albuterol sulfate 1.25 mg/3 mL Solution For Nebulization 1.25 mg NEB Q2HR NEB PRN (Reason: Dyspnea) Qty: 0 RF: 0 rifampin 150 mg Capsule 300 mg PO Q12HR Qty: 0 RF: 0 ethambutol [Myambutol] 400 mg Tablet 800 mg PO DAILY Qty: 0 RF: 0 pantoprazole 40 mg Tablet,Delayed Release (Dr/Ec) 40 mg PO DAILY Qty: 0 RF: 0 mirtazapine 15 mg Tablet 30 mg PO HS Qty: 0 RF: 0 metoprolol succinate 25 mg Tablet Extended Release 24 Hr 25 mg PO DAILY Qty: 0 RF: 0 clotrimazole 1 % Cream 1 applicatio Topical TID Qty: 0 RF: 0 risperidone 0.5 mg Tablet 0.5 mg PO BID Qty: 0 RF: 0 rzairwcc-lzef-NV-calcium-mins [Thera M Plus (ferrous fumarat)] 9 mg iron-400 mcg Tablet 1 tab PO DAILY Qty: 0 RF: 0 thiamine HCl (vitamin B1) 100 mg Tablet 100 mg PO DAILY Qty: 0 RF: 0 Continue tamsulosin [Flomax] 0.4 mg Capsule 0.4 mg PO DAILY RF: 0 Discontinued amlodipine [Norvasc] 5 mg Tablet 5 mg PO DAILY RF: 0 Referrals: UNKNOWN, [Primary Care Provider] - See Instructions Discharge Instructions Patient Printed Instructions: Gastrointestinal Bleeding (DC) Status ED Status: Left Department Discharge Information Discharge Date/Time: 11/20/18 15:19
== END 2018-11-20 15:19 | DRG 25 ==
LOC: NEPE 13:18 → NEDA 15:10 → N03 17:30 → N05 10-29 20:59
PROVIDERS: ADMIT Family Medicine; ATTEND Family Medicine
PROC: PANENDO (2018-10-16 11:13)
DX: S02.19XA Other fracture of base of skull, initial encounter for closed fracture; J18.9 Pneumonia, unspecified organism; D63.1 Anemia in chronic kidney disease; F41.9 Anxiety disorder, unspecified; Z83.79 Family history of other diseases of the digestive system; K20.9 Esophagitis, unspecified; A41.9 Sepsis, unspecified organism; J96.00 Acute respiratory failure, unspecified whether with hypoxia or hypercapnia; M62.59 Muscle wasting and atrophy, not elsewhere classified, multiple sites; N20.0 Calculus of kidney; Z68.1 Body mass index [BMI] 19.9 or less, adult; I12.9 Hypertensive chronic kidney disease with stage 1 through stage 4 chronic kidney disease, or unspecified chronic kidney disease; K59.00 Constipation, unspecified; K57.90 Diverticulosis of intestine, part unspecified, without perforation or abscess without bleeding; Z79.899 Other long term (current) drug therapy; E87.6 Hypokalemia; D61.9 Aplastic anemia, unspecified; G93.41 Metabolic encephalopathy; N40.0 Benign prostatic hyperplasia without lower urinary tract symptoms; R91.8 Other nonspecific abnormal finding of lung field; K29.71 Gastritis, unspecified, with bleeding; R13.12 Dysphagia, oropharyngeal phase; D62 Acute posthemorrhagic anemia; I45.10 Unspecified right bundle-branch block; W18.30XA Fall on same level, unspecified, initial encounter; Z78.1 Physical restraint status; E43 Unspecified severe protein-calorie malnutrition; N18.9 Chronic kidney disease, unspecified; Y93.9 Activity, unspecified; S06.1X9A Traumatic cerebral edema with loss of consciousness of unspecified duration, initial encounter; F17.210 Nicotine dependence, cigarettes, uncomplicated; J44.9 Chronic obstructive pulmonary disease, unspecified; S06.5X9A Traumatic subdural hemorrhage with loss of consciousness of unspecified duration, initial encounter; S06.6X9A Traumatic subarachnoid hemorrhage with loss of consciousness of unspecified duration, initial encounter; D52.9 Folate deficiency anemia, unspecified; S00.11XA Contusion of right eyelid and periocular area, initial encounter; Z88.8 Allergy status to other drugs, medicaments and biological substances; A31.0 Pulmonary mycobacterial infection; Y92.009 Unspecified place in unspecified non-institutional (private) residence as the place of occurrence of the external cause; F10.10 Alcohol abuse, uncomplicated; D51.9 Vitamin B12 deficiency anemia, unspecified; Z51.5 Encounter for palliative care
CPT/HCPCS: 31500; 31624; 36430; 36600; 51702; 70450; 71010; 71045; 71260; 72125; 73560; 74177; 76937; 80048; 80053; 80076; 80202; 80307; 81001; 82088; 82140; 82550; 82565; 82728; 82805; 82948; 82962; 83010; 83036; 83540; 83550; 83605; 83615; 83735; 84100; 84132; 84145; 84439; 84443; 84484; 84550; 85014; 85018; 85025; 85027; 85044; 85610; 85651; 85652; 85730; 86038; 86140; 86403; 86430; 86431; 86850; 86880; 86900; 86901; 86923; 87015; 87040; 87070; 87071; 87086; 87102; 87116; 87147; 87184; 87186; 87205; 87206; 87389; 87556; 87641; 87798; 88112; 88305; 92526; 92610; 93005; 93306; 93880; 94002; 94003; 94150; 94640; 94656; 94657; 94664; 94665; 95819; 97110; 97116; 97161; 97167; 97530; 97535; 99291; C9113; C9238; G0195; J0330; J0696; J0713; J1100; J1953; J2270; J2704; J3010; J3370; J3411; J3475; J3480; J7030; J7050; L0150; L0172; P9016; Q9967